=== PATIENT | female | born 1970 | race Caucasian/White ===

== ENCOUNTER → 2020-01-18 11:12 | Outpatient (BNVA) | payer OTHER, SELFPAY | PROVIDERS: PCP Family Medicine; Referring Provider Family Medicine; Visit Provider Physician Assistant | DX: E66.01 Morbid (severe) obesity due to excess calories (principal); Z68.44 Body mass index [BMI] 60.0-69.9, adult | CPT/HCPCS: 99204 ==

== ENCOUNTER → 2020-02-10 10:26 | Outpatient (BNVA) | payer OTHER, SELFPAY | PROVIDERS: PCP Family Medicine; Visit Provider Physician Assistant | DX: E66.01 Morbid (severe) obesity due to excess calories (principal); Z68.44 Body mass index [BMI] 60.0-69.9, adult | CPT/HCPCS: 99212 ==

== ENCOUNTER → 2020-03-08 08:14 | Outpatient (BNVA) | payer OTHER, SELFPAY | PROVIDERS: PCP Family Medicine; Visit Provider Physician Assistant | DX: Z76.89 Persons encountering health services in other specified circumstances (principal) ==

== ENCOUNTER → 2020-04-11 08:15 | Outpatient (BNVA) | payer OTHER, SELFPAY | PROVIDERS: PCP Family Medicine; Referring Provider Family Medicine; Visit Provider Dietitian, Registered | DX: Z76.89 Persons encountering health services in other specified circumstances (principal) ==

== ENCOUNTER → 2020-05-17 08:12 | Outpatient (BNVA) | payer OTHER, SELFPAY | PROVIDERS: PCP Family Medicine; Visit Provider Physician Assistant ==

== ENCOUNTER → 2020-06-14 08:10 | Outpatient (BNVA) | payer OTHER, SELFPAY | PROVIDERS: PCP Family Medicine; Visit Provider Dietitian, Registered ==

== ENCOUNTER → 2020-07-15 08:13 | Outpatient (BNVA) | payer OTHER, SELFPAY | PROVIDERS: PCP Family Medicine; Visit Provider Physician Assistant ==

== ENCOUNTER → 2020-07-26 14:31 | Outpatient (BNVA) | payer OTHER, SELFPAY | PROVIDERS: PCP Family Medicine; Visit Provider Dietitian, Registered | DX: E66.01 Morbid (severe) obesity due to excess calories (principal); Z68.44 Body mass index [BMI] 60.0-69.9, adult | CPT/HCPCS: 97803 ==

== ENCOUNTER → 2020-09-22 08:18 | Outpatient (BNVA) | payer OTHER, SELFPAY | PROVIDERS: PCP Family Medicine; Visit Provider Physician Assistant ==

== ENCOUNTER → 2020-10-14 10:07 | Outpatient (BNVA) | payer OTHER, SELFPAY | PROVIDERS: PCP Family Medicine; Visit Provider Physician Assistant ==

== ENCOUNTER → 2020-12-13 09:01 | Outpatient (BNVA) | payer OTHER, SELFPAY | PROVIDERS: PCP Family Medicine; Visit Provider Dietitian, Registered | DX: E66.01 Morbid (severe) obesity due to excess calories (principal); Z68.45 Body mass index [BMI] 70 or greater, adult | CPT/HCPCS: 97803 ==

== ENCOUNTER → 2021-01-13 08:46 | Outpatient (BNVA) | payer OTHER, SELFPAY | PROVIDERS: PCP Family Medicine; Visit Provider Dietitian, Registered | DX: E66.01 Morbid (severe) obesity due to excess calories (principal); Z68.44 Body mass index [BMI] 60.0-69.9, adult | CPT/HCPCS: 97803 ==

== ENCOUNTER → 2021-09-06 13:08 | Outpatient (BNVA) | payer OTHER, SELFPAY | PROVIDERS: PCP Family Medicine; Visit Provider Physician Assistant Surgical | DX: E66.01 Morbid (severe) obesity due to excess calories (principal); Z68.45 Body mass index [BMI] 70 or greater, adult | CPT/HCPCS: 99212 ==

== ENCOUNTER → 2021-09-20 13:34 | Outpatient (BNVA) | payer OTHER, SELFPAY | PROVIDERS: Referring Provider Physician Assistant Surgical; Visit Provider Dietitian, Registered | DX: E66.01 Morbid (severe) obesity due to excess calories (principal) | CPT/HCPCS: 97803 ==

== ENCOUNTER 2022-12-17 13:03 | Outpatient (RCR) | payer OTHER, SELFPAY | END 2023-02-06 15:00 | disposition home or self-care (01) | LOC: HO.WCC 13:03 | PROVIDERS: PCP Internal Medicine; Visit Provider Physician Assistant | DX: E11.622 Type 2 diabetes mellitus with other skin ulcer (principal); L97.222 Non-pressure chronic ulcer of left calf with fat layer exposed; E11.40 Type 2 diabetes mellitus with diabetic neuropathy, unspecified; E11.51 Type 2 diabetes mellitus with diabetic peripheral angiopathy without gangrene; I95.9 Hypotension, unspecified; I89.0 Lymphedema, not elsewhere classified; I73.00 Raynaud's syndrome without gangrene; L30.9 Dermatitis, unspecified; U09.9 Post COVID-19 condition, unspecified; Z92.3 Personal history of irradiation; Z92.21 Personal history of antineoplastic chemotherapy | CPT/HCPCS: 11042; 11045; 97597; 97598; 99212; 99213 ==

== ENCOUNTER 2024-03-23 16:02 | Outpatient (AMB) | payer OTHER, SELFPAY ==
--- NOTE | 2024-03-23 16:27 | MHC.PC.OV ---
Intake Visit Reasons: Video call face to face Allergies tirzepatide [From Mounjaro] Allergy (Severe, Verified 08/20/23 15:51) Unknown soy Allergy (Mild, Verified 09/06/21 13:21) hives amoxicillin Allergy (Unknown, Verified 09/06/21 13:21) anaphylaxis azithromycin [Zithromax Z-Chris] Allergy (Unknown, Verified 09/06/21 13:21) anaphylaxis Darvocet A500 Allergy (Unknown, Verified 09/06/21 13:21) hives penicillin V Allergy (Unknown, Verified 09/06/21 13:21) anaphylaxis Erythromycin Allergy (Unknown, Uncoded 01/18/20 16:16) anaphylaxis Rabbits Allergy (Unknown, Uncoded 01/18/20 16:16) anaphylaxis Bangladeshi cheese Allergy (Unknown, Uncoded 01/18/20 16:16) anaphylaxis Tobacco use date assessed: 09/06/23 HPI HPI Comments History of Present Illness Details This is a 53 y/o female with a past medical history of type 2 DM, thyroid cancer, hypothyroid, OA, obesity, lymphedema, recurrent LE cellulitis, depression, anxiety presenting to [facility] (video telehealth) Patient continues to suffer from complex and chronic health conditions. Lower extremity shallow wound on left lower posterior leg shallow 8-9cm widest, b/l LE cellulitis R>L. Patient currently without home care is home bound. Insurance doesn't cover [facility]. 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 She has limited mobility due to pain, lymphedema. She needs a wheelchair ramp to reenter her house due to considerable pain and immobility Diabetes is well controlled on current medication. She has a history of thyroid cancer. Previously followed in [place]. Says she has fixed large painful lumps on the neck more prominent now with weight loss. Has had x years but endorses growth ROS see HPI PHYSICAL EXAM: GENERAL: Alert and oriented x 3. NAD EYES: EOMI. Anicteric. SKIN: b/l lymphedema with erythema LE, posterior LLE with dressing NEUROLOGIC: No focal neurological deficits. PSYCHIATRIC: Cooperative. Appropriate mood and affect [facility] Medical History CVA (cerebral vascular accident) Myocardial ischemia CHARITO on CPAP Thyroid cancer BMI 60.0-69.9, adult Berrios's palsy GERD (gastroesophageal reflux disease) delivery delivered Right knee meniscal tear Morbid obesity POTS (postural orthostatic tachycardia syndrome) Surgical History S/P cholecystectomy H/O total thyroidectomy S/P right knee arthroscopy Family History Father No problems noted. Mother Heart disease History of hypothyroidism Sister No problems noted. Brother No problems noted. Son No problems noted. Son No problems noted. Son No problems noted. Social History Alcohol intake: never Patient Tobacco Use Status: Former Tobacco user Substance Use Type: Marijuana Physical exam (Primary Care) Tobacco/Smoking Status: Tobacco use Status Tobacco use date assessed 09/06/23 03/23/24 16:28 Patient Tobacco Use Status Former Tobacco user 03/23/24 16:28 Telehealth Telehealth Telehealth Platform: [employer] Location of provider rendering services: practice address Location of patient: address on file Patient Identification confirmed using: Name, : Yes Telehealth method: video Patient verbally consented to treatment: Yes Patient verbally consented to billing insurance company: Yes Patient informed of any privacy concerns related to visit: Yes Minutes spent on Phone/Video with Pt.: 45 Coding Level of Care Code Tele Est Pt Level 5 (51341) Diagnoses Lymphedema I89.0 Type 2 diabetes mellitus with other specified complication, unspecified whether terminal system operator insulin use E11.69 Diabetes mellitus terminal system operator insulin use: unspecified fpc insulin use status Diabetes mellitus complication status: with other specified complication History of thyroid cancer Z85.850 Assessment & Plan Assessment & Plan (1) Lymphedema: Code(s): I89.0 - Lymphedema, not elsewhere classified Category: Medical Plan: Referral to home care, wound care. Levaquin x 10 days for cellulitis Needs DME supplies (2) Type 2 diabetes mellitus: Code(s): E11.9 - Type 2 diabetes mellitus without complications Category: Medical Qualifiers: Diabetes mellitus fpc insulin use: unspecified terminal system operator insulin use status Diabetes mellitus complication status: with other specified complication Qualified Code(s): E11.69 - Type 2 diabetes mellitus with other specified complication Plan: well controlled. Labs ordered (3) History of thyroid cancer: Code(s): Z85.850 - Personal history of malignant neoplasm of thyroid Category: Medical Plan: Monitor labs Needs endocrine consult but currently homebound Orders: Orders Complete Blood Count Auto Diff Today Z13.0 - Encounter for screening for diseases of the blood and blood-forming organs and certain disorders involving the immune mechanism [facility]errals [facility] Referral I89.0 - Lymphedema, not elsewhere classified, R29.898 - Other symptoms and signs involving the musculoskeletal system, S81.132E - Unspecified open wound, unspecified lower leg, initial encounter Medications: New levofloxacin 750 mg PO DAILY 10 tabs 0RF
== END 2024-03-23 17:05 | disposition home or self-care (01) ==
LOC: HO.HMCFM 16:02
PROVIDERS: PCP Internal Medicine; Visit Provider Internal Medicine
DX: I89.0 Lymphedema, not elsewhere classified (principal); E11.69 Type 2 diabetes mellitus with other specified complication; Z85.850 Personal history of malignant neoplasm of thyroid

== ENCOUNTER 2024-04-25 14:41 | Outpatient (REF) | payer OTHER, SELFPAY ==
[2024-04-25 14:44] LABS: MANUAL DIFF FLAG NO
[2024-04-25 14:46] LABS: Basophils Percent Auto 0.5 % (0-2); Eosinophils Absolute Auto 0.4 X10*3/uL (0.0-0.4); Eosinophils Percent Auto 5.6 % (0-4); Hematocrit 34.3 % (37.0-47.0); Hemoglobin 10.6 g/dl (12.0-16.0); Imm Gran Abs Auto 0.03 X10*3/uL (0.00-0.03); Imm Gran Pct Auto 0.4 % (0.0-0.4); Lymphocytes Absolute Auto 1.7 X10*3/uL (1.2-4.9); Lymphocytes Percent Auto 22.7 % (20-40); Mean Corpuscular HGB Conc 30.9 g/dl (31.0-35.0); Mean Corpuscular Hemoglobin 29.1 pg (27.0-33.0); Mean Corpuscular Volume 94.2 fL (80.0-98.0); Mean Platelet Volume 8.8 fL (9.4-12.3); Monocytes Absolute Auto 0.5 X10*3/uL (0.1-1.2); Monocytes Percent Auto 6.6 % (2-11); Neutrophils Absolute Auto 4.9 x10*3/uL (2.0-8.3); Neutrophils Percent Auto 64.2 % (45-73); Platelet Count 312 X10*3/uL (160-400); Red Blood Count 3.64 X10*6/uL (4.20-5.50); Red Cell Distribution Width 14.8 % (11.0-16.0); White Blood Count 7.6 X10*3/uL (4.8-10.8)
== END 2024-04-25 14:42 | disposition home or self-care (01) ==
LOC: HO.HVNA 14:41
PROVIDERS: Visit Provider Internal Medicine
DX: Z13.89 Encounter for screening for other disorder (principal)
CPT/HCPCS: 36415; 85025

== ENCOUNTER → 2024-04-27 16:40 | Outpatient (BNVA) | payer OTHER, SELFPAY | PROVIDERS: PCP Internal Medicine; Visit Provider Internal Medicine | DX: S81.809A Unspecified open wound, unspecified lower leg, initial encounter (principal) ==

== ENCOUNTER 2024-05-01 15:44 | Outpatient (AMB) | payer OTHER, SELFPAY ==
--- NOTE | 2024-05-01 15:45 | A.OFFPC_ITS ---
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 Allergies tirzepatide [From Mounjaro] Allergy (Severe, Verified 05/01/24 15:46) Unknown soy Allergy (Mild, Verified 05/01/24 15:46) hives amoxicillin Allergy (Unknown, Verified 05/01/24 15:46) anaphylaxis azithromycin [Zithromax Z-Chris] Allergy (Unknown, Verified 05/01/24 15:46) anaphylaxis Darvocet A500 Allergy (Unknown, Verified 05/01/24 15:46) hives penicillin V Allergy (Unknown, Verified 05/01/24 15:46) anaphylaxis Erythromycin Allergy (Unknown, Uncoded 05/01/24 15:46) anaphylaxis Rabbits Allergy (Unknown, Uncoded 05/01/24 15:46) anaphylaxis Malaysian cheese Allergy (Unknown, Uncoded 05/01/24 15:46) anaphylaxis Tobacco use date assessed: 09/06/23 HPI HPI Comments History of Present Illness Details This is a 54 y/o female with a past medical history of type 2 DM, thyroid cancer, hypothyroid, OA, obesity, hypoxic respiratory failure on chronic 02, lymphedema, recurrent LE cellulitis, depression, anxiety presenting for follow up (video telehealth) Patient continues to suffer from complex and chronic health conditions. Lower extremity wounds on left lower posterior leg shallow 8-9cm widest, b/l LE cellulitis. Finally has [facility]NA in the home. Labs were sent. Only CBC was drawn. There is mild anemia. Currently has a left unna boot. [facility] 3x/wk nursing 2x/wk for physical therapy She has limited mobility due to pain, lymphedema. She needs a wheelchair ramp to reenter her house due to considerable pain and immobility Diabetes is well controlled on current medication. She has a history of thyroid cancer. Previously followed in [place]. She requires chronic 02. Needs concentrator script 4-7L depending on activity. Has prn albutrol Says she has fixed large painful lumps on the neck more prominent now with weight loss. Has had x years but endorses growth. ROS see HPI PHYSICAL EXAM: GENERAL: Alert and oriented x 3. NAD EYES: EOMI. Anicteric. SKIN: b/l lymphedema with erythema LE, posterior LLE unna boot NEUROLOGIC: No focal neurological deficits. PSYCHIATRIC: Cooperative. Appropriate mood and affect [facility] Medical History CVA (cerebral vascular accident) Myocardial ischemia CHARITO on CPAP Thyroid cancer BMI 60.0-69.9, adult Berrios's palsy GERD (gastroesophageal reflux disease) delivery delivered Right knee meniscal tear Morbid obesity POTS (postural orthostatic tachycardia syndrome) Surgical History S/P cholecystectomy H/O total thyroidectomy S/P right knee arthroscopy Family History Father No problems noted. Mother Heart disease History of hypothyroidism Sister No problems noted. Brother No problems noted. Son No problems noted. Son No problems noted. Son No problems noted. Social History Alcohol intake: never Patient Tobacco Use Status: Former Tobacco user Substance Use Type: Marijuana Physical exam (Primary Care) Tobacco/Smoking Status: Tobacco use Status Tobacco use date assessed 09/06/23 05/01/24 15:48 Patient Tobacco Use Status Former Tobacco user 05/01/24 15:48 Telehealth Telehealth Telehealth Platform: [facility] Location of provider rendering services: practice address Location of patient: address on file Patient Identification confirmed using: Name, : Yes Telehealth method: video Patient verbally consented to treatment: Yes Patient verbally consented to billing insurance company: Yes Patient informed of any privacy concerns related to visit: Yes Minutes spent on Phone/Video with Pt.: 43 Coding Level of Care Code Tele Est Pt Level 5 (16013) Diagnoses Chronic hypoxic respiratory failure J96.11 Type 2 diabetes mellitus with other specified complication, unspecified whether senior care insulin use E11.69 Diabetes mellitus complication status: with other specified complication Diabetes mellitus senior care insulin use: unspecified senior care insulin use status Depressive disorder due to separate medical condition F06.30 Assessment & Plan Assessment & Plan (1) Chronic hypoxic respiratory failure: Code(s): J96.11 - Chronic respiratory failure with hypoxia Category: Medical Plan: Oxygen supplies needed. 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 insulin use status Qualified Code(s): E11.69 - Type 2 diabetes mellitus with other specified complication Plan: Labs need to be resent (3) Depressive disorder due to separate medical condition: Code(s): F06.30 - Mood disorder due to known physiological condition, unspecified Category: Medical Plan: Can be overwhelmed by medical conditions, homebound status Orders: Orders Vitamin B12 and Folate 05/01/24 D64.9 - Anemia, unspecified IRON PROFILE 05/01/24 D64.9 - Anemia, unspecified Medications: New Oxygen Home Use Oxygen concentrator 6L standing 4L sitting 1 ea 0RF J96.11 - Chronic respiratory failure with hypoxia
--- OUTSIDE RECORDS SUMMARY | 2024-05-01 15:46 | XMS_ITS | Data Portability ---
Author Organization [place] - [facility] Address [address] [place] [id number] Care Team Providers Care Silk Examiner Name Role Phone RUIZ PENNINGTON Primary Care Provider [phone] Assessment Encounter Date Assessment Date Assessment LastModified by Organization Details LastModified Time 08/20/2021 08/20/2021 51 YO female patient who complains of left calf wound which is painful to touch and pus exudate. She took a shower 2 days ago and noticed pus was coming from her calf region. She does recall while in bed something cutting her. States site is warm to touch. She has pictures of wound 2 days ago. Exam: Vitals: VSS with HR at baseline, hx of POTS. MO, well developed, pleasant in euthymic mood. NAD sitting comfortably in chair. Normacepalic, atraumatic, EOMI. Able to move all exxtremities. BLE with non pitting edema, skin with dry and dusky appearance to toes/feet, which is her baseline. Left lower calf erythematous, warm to touch, with visible superficial wound opening. See picture for detail. Test: None ordered DDx: Cellulitis, atopic dermatitis, tinea corporis Plan: Area cleansed with wound wash and Bacitracin applied to site. Picture taken of wound by picture compared with current presentation with wound actually showing some improvement. No active exudate, however area warm, erythematous, and tender with touch. Allergies were reviewed with patient which she states that she was told as a child she was allergic to PCN, however she has taken PCN as an adult with no unwanted side effect. Keflex prescribed. Recommended keeping area clean and dry and assessing site daily for progression or worsening. The patient is advised to make an appt with PCP in 3-5 days to discuss ongoing symptoms/ further management. The patient is also advised to go to the ED immediately for any worsening symptoms. The patient understood and agreed with this plan. The patient was given discharge instructions and all questions were answered prior to team departure. Time On Scene with Patient: 00:51:59 [email or web address] Not available 08/20/2021 13:44:05 08/27/2021 08/27/2021 Overview/History : 51 year old female known to but new to provider with a history of asthma/COPD, POTS, hypothyroid, thyroid cancer with thyroidectomy being seen today to check the wound on her left lower leg that she has been on Keflex from since last visit on 08/20. Called because it was still oozing yesterday for which today the oozing stopped. She was at a yesterday and had her leg in dependent position all day with aunt (retired RESEARCH AND DEVELOPMENT TECHNICIAN) stated she should have it checked. Was oozing from the wound itself. Keeping it covered seems to make it better. Tends not to elevate during the day. No fever or chills. HR today 106 for which is good acc to pt at usually is 112. Some local pain at the wound site. Today also has a sore throat. Last COVID test 4 days ago negative. Took one of her prn bumex Saturday and today to decrease the swelling Exam: Non-toxic appearing female in no acute distress; afebrile with VS WNL/HR normal per pt. Mild pharygeal erythema but difficult visualizing post pharynx; no exudate. Breathsounds bilat clear; neg abdominal exam; S1S2 regular; Left calf region: approx dime-sized superficial vascular ulcer, granular tissue, no drainage, no localized redness. Overall appearance of left leg no different than right with chronic vascular dermatitis/non-pi tting edema. Vital Signs: 110/60; 106; 18; 97.3; 96% DDx considered, but not limited to: -Vascular, non-pressure ulcer left calf: present with no signs of acute infection -Wound cellulitis: considered due to complaints of pain but no localized redness -Abscess: no fluctuance, no drainage Work up/Results: None indicated Plan/Discussion: -To continue keflex as ordered until gone (3 more days) -Apply medihoney to cleansed open area daily -Must elevate -Consider daily dosing of bumex while ulcer healing to enhance healing -Ammonium lactate ordered to intact skin as has helped in past -PCP follow up -Discussed ED precautions/infec tion Proper Personal Protective Equipment (PPE), including gloves, eye protection and masks were donned and doffed appropriately and all equipment cleaned using approved technique with germicidal disposable wipes prior to and after care of this patient according to [facility]'s infection prevention protocols. [email or web address] Not available 08/27/2021 17:51:17 05/31/2022 05/31/2022 Time On Scene with Patient: 01:51:47 Brief Overview: 52 y/o female known to DH new to provider with hx of Asthma, COPD, DM, HTN, hyperlipidemia, hypothyroidism, prior thyroid CA, POTS, lymphedema. pt reports she has had cough x 3 days now. cough is productive with yellow/ green sputum. she denies cp, sob, wheezing. states she has not needed to use her nebulizer since she has been sick. she also reports a chronic wound on her left posterior lower leg. states wound has been weeping and area is red and warm, painful. her pcp prescribed rx levaquin- 7 day course. pt also states she has appt with wound on 06/06 at their office. Vital Signs: mildly hypertensive but asymptomatic BP 142/74, initially tachycardic HR 103, repeat HR 94, RR 18, T 97.8, O2 99% on 2L via nasal canula. Exam: pleasant 52 y/o female, morbidly obese, alert, NAD sitting in her chair. eyes: no injection, icterus or discharge. nose: nares patent no discharge. mouth: moist mucous membranes no erythema, uvula is midline. no cervical lymphadenopathy. lungs: few expiratory wheezes at the bilateral bases. no rales or rhonchi. heart: RRR no murmur rubs or gallops. peripheral edema 1+ bilaterally. chronic lymphedema bilaterally in the lower extremities. left posterior distal lower leg with large superficial open wound. small amount serosanguinous drainage. localized erythema and warmth. strength is normal and equal bilaterally. DDx considered, with rationale: Pneumonia: considered but she is afebrile, denies sob, on exam has wheezes at the bases bilaterally. Necrotizing fasciitis: considered but she is afebrile, she does not have pain out of proportion. DVT: considered but no tachycardia, hypoxia, no calf tenderness. results/ work up: CXR pending. Plan: productive cough: keep hydrated. use of humidifier in her bedroom. ok to take otc tylenol as directed on the package for pain or fever. pt is currently taking Levaquin- take as directed by pcp. pt will call and schedule CXR. continue your nebulizer and inhalers as prescribed by pcp. follow up with pcp in 3-5 days or sooner prn. go to the ER with any new or worsening symptoms cp, sob, increased wheezing, fever, weakness, dizziness. open wound left leg: dressing changed today and wound cleaned with saline. non stick dressing applied. continue rx levaquin as prescribed by pcp. keep your appt with wound clinic on 06/06 as scheduled. go to the ER with worsening symptoms fever, cp, sob, dizziness, increasing edema, drainage, pain, redness. DM: controlled with current meds. follow up with pcp as scheduled. go to the ER with worsening symptoms cp, sob, dizziness, nausea, vomiting, abdominal pain, weakness. Proper Personal Protective Equipment (PPE), including gloves, eye protection and masks were donned and doffed appropriately and all equipment cleaned using approved technique with germicidal disposable wipes prior to and after care of this patient according to [facility]'s infection prevention protocols. [email or web address] Not available 05/31/2022 16:43:14 06/18/2022 06/18/2022 Overview/History : 52 YO F known to provider and known to She is being seen today in her home Wants a wound to her LLE posterior side that she has had for sometime looked at since she cannot see it where it is on her body. It drains clear liquid and she is followed by wound care for this. She keeps it covered and clean at home w/ help from family. Her only other concern today is some oral pain, feels like a canker sore to her lower lip. Wondering if she can get something for this. She has no other concerns or c/o today. No fever, chills, chest pain, SOB, urinary sxs, other wounds, redness, severe pain, exudative drainage, weakness, numbness/tingling , abd pain, NVD, difficulty swallowing, other oral pain. Exam: Vitals: VSS and afebrile Constitutional: 52 yo morbidly obese patient in no apparent distress. Upright, comfortable and not toxic appearing. Eyes: PERRL at 4mm, EOM's intact, No swelling, no discharge, sclera / conjunctiva clear ENT: no head/neck lymphadenopathy, no nasal discharge, no erythema/ exudate noted in oropharynx, uvula and trachea midline, moist mucous membranes CV: RRR, no rubs/ murmurs/ gallops heard, 2+ radial pulses bilaterally, BL baseline edema, and no calf tenderness BL, no redness neg mono's sign, 2+ DP/ PT pulses bilaterally Pulm: breath sounds clear and equal bilaterally, no wheeze/ rhonchi or rales on auscultation. Speaks in full sentences, no increased work of breathing. On baseline o2 via NC. GI: Soft, non-tender to palpation. No masses, normal bowel sounds. No guarding and no distension. : No CVA tenderness bilaterally. No suprapubic tenderness. MS: Self ambulatory patient, get up and go, moves all limbs without deficit, no evidence of trauma Neuro: No focal deficits, A&O x4, gait is not ataxic Skin: Superficial healing posterior leg wound to LLE, no redness, no warmth, no exudative drainage, no crepitus, otherwise No rash, no cyanosis/pallor, + cap refill, visible skin appears cdi. Psych: Calm, cooperative, non-manic. Pleasant. DDx considered, but not limited to: Wound - present, draining clear, healing, followed by wound care, no s/s infx Cellulitis - no s/s of infx at this time Necrotizing Fascitis - no crepitus, no warmth, no fever Canker Sore - present to lip Oral Infx - no erythema, edema, throat clear, poor dentition but no swollen nodes and no other evidence of infx at this time needing abx, educated to f/u closely w/ dentist Work up/Results: N/a Plan/Discussion: Canker Sore: -Present to lower lip -Pt states it is bothering her -Requesting something josafat to magic mouthwash -Sent script for viscous lidocaine for her to try for this until it heals -KEEP AWAY FRON CHILDREN she has children in the home -Do not swallow -No other evidence of oral infx at this time -F/u closely w/ dentist -F/u for any changes or worsening in sxs _ED precautions for diff swallowing, loose teeth, airway narrowing, lip/tongue/throat edema (which there is none of now), severe pain LLE open Wound: -She has had this for quite soem time, just wants it looked at to make sure it is not infected -She cannot see it herself as it is on back side of her LLE -It has NO evidence of infection at this time -Wound care is following and she is dressing it at home w/ help -Keep area david and dry -Educated on s/s of infx to look out for -Offered to dress wound but pt will do this later -F/u closely w/ wound care _ED precautions for severe pain, spreading redness, change in color to feet/toes, loss of sensation, fever Pt is on agreement and verbalizes understanding with the above plans at this time. Pt has no other questions or concerns at this time. All questiosn are answered to the best of my ability. Pt thanks us for our visit today. [email or web address] Not available 06/19/2022 11:09:51 06/22/2022 06/22/2022 Time On Scene with Patient: 00:42:14 - Urgent 911 transport: Patient is not in critical condition but required prompt evaluation to prevent clinical deterioration Brief Overview: 52 y/o female known to DH and provider with hx of Asthma/ COPD, DM, HTN, hyperlipidemia, hypothyroidism, thyroid CA in remission, lymphedema, POTS. pt reports she has been dealing with edema in her legs and wound on left lower leg x months now. she reports the past 3 days wound has worsened. she has increased pain, yesterday wound had purulent drainage, today drainage is clear. she reports increased edema in her left leg. pt reports yesterday she had a fever of 101. she has been taking tylenol, last dose was at 1pm this afternoon. she denies cp, sob. states her breathing is at baseline. she has not been able to wrap her leg/ wound due to pain. she reports she did vomit yesterday. pt denies recently applying ice or cold compress to the leg. Vital Signs: BP 118/76, HR 90, RR 20, T 98.1, O2 98% on 3L Exam: 52 y/o female chronically ill appearing, morbidly obese, alert NAD sitting in her chair. eyes: no injection, icterus or discharge. nose: nares patent no discharge. mouth: moist mucous membranes no erythema, uvula is midline. no cervical lymphadenopathy. lungs: CTAB no wheezes rales or rhonchi, pt on 3L. heart: RRR no murmur rubs or gallops. 1+ peripheral edema bilaterally. chronic lymphedema. left posterior lower leg with large chronic wound. serosanguinous drainage noted today. skin appears discolored, white and purplish. pt has severe pain with light palpation over wound. skin is cold to the touch. pt denies application of ice or cold compress. ROM limited due to pain, increased difficulty when attempting to stand/ ambulate. DDx considered, with rationale: DVT: considered due to edema and calf tenderness, no tachycardia. Necrotizing fasciitis: considered due to extreme pain with light palpation, reported fever of 101 yesterday. she is afebrile today but has taken tylenol. Compartment syndrome: considered due to severe pain with palpation, but no numbness or weakness, no reported injury or trauma. Osteomyelitis: considered due to chronic wound with new onset fever and increased pain, pt is diabetic. Results/ work up: N/A Plan: Due to symptoms and chronic worsening wound with new onset fever I advise urgent evaluation in the ER for further work up and treatment. pt agrees with plan. EMS was called to transport pt to the ER. Expect called to [place] [facility]. Proper Personal Protective Equipment (PPE), including gloves, eye protection and masks were donned and doffed appropriately and all equipment cleaned using approved technique with germicidal disposable wipes prior to and after care of this patient according to [facility]'s infection prevention protocols. [email or web address] Not available 06/22/2022 18:01:54 Plan of Treatment Reminders Order Date Submit Date Provider Last Modified By Organization Details Last Modified Time Details Appointments None recorded. Lab None recorded. Referral None recorded. Procedures None recorded. Surgeries None recorded. Imaging XR, chest, 2 view - productive cough, copd 2022 023 [email or web address] 9 [facility] ([employer]), [address], [place], [address], 3 14:56:13 Medication Orders cephalexin 500 mg capsule 2021 022 [email or web address] 5 [facility] #[id number], [address] [place], [address], 3 12:36:56 ammonium lactate 12 % topical cream 2021 022 [facility]acy #1234, [address] [place], [address], 2 17:30:23 MediHoney (honey) 80 % topical gel 2021 022 [facility] [address] [place], [address], 2 03:38:10 Lidocaine Viscous 2 % mucosal solution 2022 023 [email or web address] [facility] #1234, [address] [place], [address], 3 11:04:51 Patient TargetsNo targets recorded. Patient Instructions Encounter Date Encounter Id Patient Instructions Last Modified By Organization Details Last Modified Time 08/20/2021 [id number] Thank you for yo ur visit with [facility] today. You were seen today for treatment of a wound. Please seek immediate medical attention if you develop increased pain, redness, or swelling of your wound. Also, you should be evaluated if the wound becomes warm to the touch, or if there is a cloudy, yellow-brown discharge from the wound. There is always the possibility of a hidden tendon injury or foreign object in the wound. If you have problems moving your arm or leg, or if you see red streaks up the arm or leg, seek immediate medical attention. If you develop any new or worsening symptoms and need after hours care, please go to nearest ER and/or call 911. If you have additional concerns or develop a change in your condition between 8am-10pm, please call [facility] at [phone] to help navigate your care. [email or web address] Not available 08/20/2021 12:28:50 08/27/2021 [id number] -You were seen today for healing vascular wound on your left calf -It is showing signs of healing with no acute infection as it was most likely worse the other day due to prolonged placement in dependent position -Finish all antibiotics -Clean at least once daily, dry and apply medihoney and dressing -Apply ammonium lactate cream to all intact skin on lower legs -Must elevate when sitting -Follow up with your PCP but seek medical attention for any fever, increased redness, pain, drainage [email or web address] Not available 08/27/2021 17:54:35 Reason for Referral None Reported. Results Created Date Observation Date Name Description Value Unit Range Abnormal Flag Note LastModifiedBy Organization Detail LastModifiedTime 08/09/19 22 08/09/2021 COVID -19 (NOVE L CORON AVIRU S) PCR covid-19 PCR result (neg) NEGAT KARI 2018- novel Coron aviru s (2018nCoV ) not detec tommie by real- time RT-PC R. Note: If clini itzel suspi cion for COVID -19 is high, av nue to maint ain preca ution s and consi valerio repea t testi ng. Resul t repor tommie to the [facility]. To preve nt error s in diagn osis, test resul ts shoul d be inter prete d in the yao xt of clini itzel findi ngs and other labor atory data. Rare polym orphi sms exist that could lead to false -nega tive or false -posi tive resul ts. If resul ts obtai rajani do not match the clini itzel findi ngs, addit ional testi ng shoul d be consi dered . This test has been autho rized by the FDA under an Emerg ency Use Autho rizat ion (EUA) for use by autho rized labor atori es. Testi ng perfo rmed by real time PCR utili [facility] [employer] SARS- CoV-2 test. Not Available [facility] [address], [place], [address], 08/09/2021 12:39:07 08/09/19 22 08/09/2021 COVID -19 (NOVE L CORON AVIRU S) PCR covid-19 PCR specimen source NASAL Not Available [facility] [address], [place], [address], 08/09/2021 12:39:07 08/09/19 22 08/08/2021 rapid flu (A+B) Flu A (ref: neg) negati ve Not Available [facility] - Home [address] [facility], [place], [address], 08/08/2021 18:33:51 08/09/19 22 08/08/2021 rapid flu (A+B) Flu B (ref: neg) negati ve Not Available [facility] - Home [address] [facility] [facility], [place], [address], 08/08/2021 18:33:51 08/09/19 22 08/08/2021 rapid flu (A+B) Control Visual ized/V alid Not Available [facility] - Home [address] [facility], [place], [address], 08/08/2021 18:33:51 08/09/19 22 08/08/2021 rapid flu (A+B) Location [facility], [facility], [address] [facility], [place] [address], [id number] Not Available [facility] - Home [address] [place], [address], 08/08/2021 18:33:51 08/10/19 22 08/09/2021 XR, chest , 2 view XRAY CHEST 2 VIEW FINDIN GS: Lungs: No focal consol idatio n. Pulmon buck vascul ature is within normal limits . Promin ent lung markin gs. Pleura : No pneumo thorax . No pleura l effusi on. Heart and Medias tinum: The cardio medias tinal silhou ette is enlarg ed in size and contou r. Osseou s struct ures: Visual ized osseou s struct ures are stable . No radiop aque foreig n body. CONCLU JAVAD: No acute cardio pulmon buck proces s. ELECTR ONICAL LY SIGNED BY LU DUKES M.D. 10:54: 44 AM EDT. XRAY CHEST 2 VIEW Result s: Lungs: No focal consol idatio n. Pulmon buck vascul ature is within normal limits . Promin ent lung markin gs. Pleura : No pneumo thorax . No pleura l effusi on. Heart and Medias tinum: The cardio medias tinal silhou ette is enlarg ed in size and contou r. Osseou s struct ures: Visual ized osseou s struct ures are stable . No radiop aque foreig n body. Conclu javad: No acute cardio pulmon buck proces s. Electr onical ly signed by LU DUKES M.D. 10:54: 44 AM EDT. [email or web address] [employer] [address], [address], 08/13/2021 11:04:49 06/02/19 23 06/01/2022 XR, chest , 1 view XRAY CHEST 1 VIEW FINDIN GS: The heart shows no abnorm ality, the size is normal . There is minima l plate like atelec tasis at the left base with no focal mass, consol idatio n or effusi on.The osseou s struct ures are normal . CONCLU JAVAD: Minima l atelec tasis at left base new since ELECTR ONICAL LY SIGNED BY RODNEY GARDINER M.D. 06/02/19 11:45: 53 AM EST. XRAY CHEST 1 VIEW Result s: The heart shows no abnorm ality, the size is normal . There is minima l plate like atelec tasis at the left base with no focal mass, consol idatio n or effusi on.The osseou s struct ures are normal . Conclu javad: Minima l atelec tasis at left base new since Electr onical ly signed by RODNEY GARDINER M.D. 06/02/19 11:45: 53 AM EST. [email or web address] [employer] [address] [address], [place], [address], 06/01/2022 16:39:15 Result Notes None recorded. Procedures Surgical History Date Name Laterality Status Provider Name and Address Organization Details Recorded Time 023 Medication Review completed RACHEAL Chandler [address], [place], [address], [place] [facility] 06/18/2022 14:15:47 022 Nebulizer treatment - DH completed RACHEAL Chandler [address], [place], [address], [place] [facility] 07/15/2021 15:10:51 Removal of thyroid completed Venice García NP [address], [place], [address], [place] [facility] 07/05/2021 15:59:02 Cholecystectomy completed September CHEN García [address], [place], [address], [place] [facility] 07/05/2021 15:59:16 Knee arthroscopy/surger y completed September CHEN García [address], [place], [address], [place] [facility] 07/05/2021 15:59:28 delivery completed Venice CHEN García [address], [place], [address], [place] [facility] 07/05/2021 16:00:01 Imaging Results Imaging Date Name Status LastModified by Organiz ation Details LastModified Time 08/09/2021 XR, chest, 2 view completed [email or web address] [employer] [facility] [address], [address], 08/13/2021 11:04:49 06/01/2022 XR, chest, 1 view completed [email or web address] [employer] [facility] [address] [facility] [address], [address], 06/01/2022 16:39:15 Procedure Notes None recorded. Medical Equipment None Reported. Allergies Allergen ID Allergen Name Allergen Category Reaction Reaction Severity Criticality Documentation Date Start Date Code Code System Note Provider Name and Address Organization Details Recorded Time [id number] erythromy hermes medicatio n Not available Not available Not available 07/05/2021 4053 RxNorm Venice Ricky , RESEARCH AND DEVELOPMENT TECHNICIAN [address], [place], [address], [place] [facility] 2 15:52:01 [id number] amoxicill in medicatio n Not available Not available Not available 07/05/2021 723 RxNorm Venice Ricky , CHEN [address], [place], [address], [place] [facility] 2 15:52:48 233400 Product containin g penicilli n and antibioti c (product) medicatio n Not available Not available Not available 07/05/2021 35336 05 SNOMED Venice Ricky , CHEN [address], [place], [address], [place] [facility] 2 15:52:40 [id number] azithromy hermes medicatio n Not available Not available Not available 06/18/2022 15759 RxNorm RACHEAL Mena [address], [place], [address], [place] [facility] 3 12:14:38 Medications Name Sig Start Date Stop Date Status Note LastModified by Organization Details LastModified Time freestyle lite test strips strp active Not Available Not Available Not Available cyclobenzap rine 10 mg tablet TAKE 1 TABLET BY MOUTH THREE TIMES A DAY NEEDED FOR MUSCLE SPASMS active Not Available Not Available No t Available metformin 500 mg tablet TAKE 1 TABLET BY MOUTH EVERYDAY AT BEDTIME 05/31 completed Not Available Not Available Not Available prednisone 10 mg tablet Taper course, oral prednison ePlease take 4 pills on day 1 and day 2Then take 3 pills on day 3 and 4Then take 2 pills on 5 and day 6Then finish by taking 1 pill on day 7 and day 8 08/08 completed Not Available Not Available Not Available albuterol sulfate 2.5 mg/3 mL (0.083 %) solution for nebulizatio n TAKE 1 VIAL BY NEBULIZAT ION EVERY 4 HOURS NEEDED FOR WHEEZING FOR UP TO 30 DAYS. active Not Available Not Available No t Available trazodone 50 mg tablet TAKE 4 TABLETS BY MOUTH AT BEDTIME active Not Available Not Available No t Available cetirizine 10 mg tablet TAKE 1 TABLET BY MOUTH EVERY DAY active Not Available Not Available No t Available azithromyci n 250 mg tablet TAKE 2 TABLETS BY MOUTH TODAY, THEN TAKE 1 TABLET DAILY FOR 4 DAYS 07/05 completed Not Available Not Available Not Available Lidocaine Viscous 2 % mucosal solution Take 15 mL every 3 hours by oral route as needed for 3 days. 2022 active Not Available Not Available Not Avai lable fluconazole 150 mg tablet TAKE 1 TABLET BY MOUTH EVERY DAY ONE DOSE 07/05 completed Not Available Not Available Not Available benzonatate 200 mg capsule TAKE 1 CAPSULE BY MOUTH 3 TIMES DAILY NEEDED FOR COUGH FOR UP TO 7 DAYS. 06/18 completed Not Available Not Available Not Available ketotifen 0.025 % (0.035 %) eye drops INSTILL 1 DROP INTO AFFECTED EYE TWICE A DAY active Not Available Not Available No t Available FreeStyle Lancets 28 gauge USE DIRECTED 3 TIMES A DAY FOR TYPE 2 DIABETES MELLITUS 06/18 completed Not Available Not Available Not Available ondansetron HCl 4 mg tablet TAKE 1 TABLET BY MOUTH EVERY 8 HOURS NEEDED FOR NAUSEA active Not Available Not Available No t Available prednisone 20 mg tablet TAKE 1 TABLET BY MOUTH DAILY FOR 7 DAYS. 05/31 completed Not Available Not Available Not Available Advair Diskus 100 mcg-50 mcg/dose powder for inhalation INHALE 1 PUFF TWICE A DAY BY INHALATIO N ROUTE DIRECTED FOR 30 DAYS. 05/31 completed Not Available Not Available Not Available sulfamethox azole 800 mg-trimetho prim 160 mg tablet 05/31 completed Not Available Not Available Not Available doxycycline monohydrate 100 mg tablet TAKE 1 TABLET BY MOUTH TWICE A DAY FOR 7 DAYS 05/31 completed Not Available Not Available Not Available levothyroxi ne 100 mcg tablet TAKE 1 TABLET BY MOUTH EVERY DAY 08/27 completed Not Available Not Available Not Available benzonatate 100 mg capsule TAKE 1 CAPSULE BY MOUTH EVERY 12 HOURS,X10 DAYS active Not Available Not Available No t Available glipizide ER 2.5 mg tablet, extended release 24 hr TAKE 1 TABLET BY MOUTH EVERY DAY active Not Available Not Available No t Available cephalexin 500 mg capsule TAKE 1 CAPSULE BY MOUTH 4 TIMES A DAY FOR 7 DAYS active Not Available Not Available No t Available cyanocobala min (vit B-12) 1,000 mcg/mL injection solution INJECT 1 ML INTO THE MUSCLE EVERY 30 DAYS. active Not Available Not Available No t Available levothyroxi ne 125 mcg tablet TAKE 2 TABLETS BY MOUTH IN THE MORNING BEFORE BREAKFAST 05/31 completed Not Available Not Available Not Available bumetanide 0.5 mg tablet TAKE 2 TABLETS BY MOUTH DAILY NEEDED FOR LEG SWELLING active Not Available Not Available No t Available Advair Diskus 250 mcg-50 mcg/dose powder for inhalation INHALE 1 PUFF INTO THE LUNGS TWICE A DAY FOR 30 DAYS active Not Available Not Available No t Available Ear Drops (carbamide peroxide) 6.5 % INSTILL 5 DROPS INTO AFFECTED EAR TWICE A DAY 08/08 completed Not Available Not Available Not Available bumetanide 1 mg tablet TAKE 1 TABLET BY MOUTH TWICE A DAY active Not Available Not Available No t Available montelukast 10 mg tablet TAKE 1 TABLET BY MOUTH AT BEDTIME active Not Available Not Available No t Available ammonium lactate 12 % topical cream APPLY 1 APPLICATI ON TOPICALLY TWICE A DAY active Not Available Not Available No t Available levothyroxi ne 200 mcg tablet TAKE 1 TABLET BY MOUTH EVERY DAY active Not Available Not Available No t Available nystatin 100,000 unit/gram topical powder APPLY TO AFFECTED AREA 3 TIMES A DAY active Not Available Not Available No t Available lorazepam 1 mg tablet TAKE 1 TABLET BY MOUTH TWICE A DAY FOR 28 DAYS 06/18 completed Not Available Not Available Not Available levofloxaci n 750 mg tablet TAKE 1 TABLET BY MOUTH EVERY 24 HOURS FOR 7 DAYS 06/18 completed Not Available Not Available Not Available ketoconazol e 2 % topical cream APPLY TO AFFECTED AREAS TWICE DAILY FOR 2 WEEKS 08/27 completed Not Available Not Available Not Available metformin ER 500 mg tablet,exte nded release 24 hr TAKE 1 TABLET BY MOUTH EVERY DAY 05/31 completed Not Available Not Available Not Available doxycycline hyclate 100 mg tablet TAKE 1 CAPSULE BY MOUTH EVERY 12 HOURS,X10 DAYS 05/31 completed Not Available Not Available Not Available BD Luer-Mary Syringe 3 mL 21 gauge x 1 USE TO INJECT VITAMIN B12 1ML EVERY 30 DAYS 05/31 completed Not Available Not Available Not Available Ventolin HFA 90 mcg/actuati on aerosol inhaler INHALE 2 PUFFS INTO LUNGS EVERY 6 HRS NEEDED FOR WHEEZING/ SHORTNESS OF BREATH FOR UP TO 30 DAYS. active Not Available Not Available No t Available Alcohol Prep Pads USE DIRECTED FOR TYPE 2 DIABETES MELLITUS 06/18 completed Not Available Not Available Not Available metoprolol tartrate 25 mg tablet TAKE 1 TABLET BY MOUTH TWICE A DAY 08/27 completed Not Available Not Available Not Available Advair HFA 115 mcg-21 mcg/actuati on aerosol inhaler INHALE 2 PUFFS INTO THE LUNGS 2 TIMES DAILY 08/08 completed Not Available Not Available Not Available FreeStyle Lite Meter kit USED TO CHECK GLUCOSE LEVELS ONCE DAILY. 06/18 completed Not Available Not Available Not Available FreeStyle Lite Strips USE DIRECTED 3 TIMES A DAY 06/18 completed Not Available Not Available Not Available MediHoney (honey) 80 % topical gel Apply 1 applicati on every day by topical route. 2021 active Not Available Not Available Not Avai lable potassium chloride ER 20 mEq tablet,exte nded release 3 TABLET BY MOUTH DAILY,X90 DAYS active Not Available Not Available No t Available Vitals Date Recorded Oxygen saturation Oxygen saturation in Arterial blood by Pulse oximetry Respiratory rate Body temperature Heart rate Systolic blood pressure Diastolic blood pressure Provider Name and Address Organization Details Last Updated DateTime 2 96 % 96 % 16 /min 97.7 [degF] 100 /min 120 mm[Hg] 70 mm[Hg] Not Available [facility] 2 12:23:17 Date Recorded Respiratory rate Oxygen saturation Oxygen saturation in Arterial blood by Pulse oximetry Heart rate Body temperature Systolic blood pressure Diastolic blood pressure Provider Name and Address Organization Details Last Updated DateTime 2 18 /min 96 % 96 % 106 /min 97.3 [degF] 110 mm[Hg] 60 mm[Hg] Not Available [facility] 2 16:48:40 Date Recorded Respiratory rate Heart rate Oxygen saturation Oxygen saturation in Arterial blood by Pulse oximetry Inhaled oxygen flow rate Body temperature Systolic blood pressure Diastolic blood pressure Provider Name and Address Organization Details Last Updated DateTime 3 18 /min 103 /min 99 % 99 % 2 L/min 97.8 [degF] 142 mm[Hg] 74 mm[Hg] Not Available [facility] 3 12:37:26 Date Recorded Body temperature Heart rate Oxygen saturation Oxygen saturation in Arterial blood by Pulse oximetry Inhaled oxygen flow rate Respiratory rate Systolic blood pressure Diastolic blood pressure Provider Name and Address Organization Details Last Updated DateTime 3 98.6 [degF] 98 /min 98 % 98 % 3 L/min 20 /min 142 mm[Hg] 72 mm[Hg] Not Available [facility] 3 13:47:27 Date Recorded Heart rate Respiratory rate Oxygen saturation Oxygen saturation in Arterial blood by Pulse oximetry Inhaled oxygen flow rate Body temperature Systolic blood pressure Diastolic blood pressure Provider Name and Address Organization Details Last Updated DateTime 3 90 /min 20 /min 98 % 98 % 3 L/min 98.1 [degF] 118 mm[Hg] 76 mm[Hg] Not Available [facility] 3 16:02:09 Social History Question Answer Notes LastModified by Organizat ion Details LastModified Time Tobacco Smoking Status Former Smoker September CHEN García [address], [place], [address], [place] [facility] 07/05/2021 15:55:57 What Is Your Level Of Alcohol Consumption? None [email or web address] Information not available 07/05/2021 What Is Your Code Status? Full Code Information not available 07/05/2021 Within The Past 12 Months, Has It Happened That The Food You Bought Just Didn't Last And You Didn't Have Money To Get More. No [email or web address] Information not available 07/05/2021 Within The Past 12 Months, Have You Worried That Your Food Would Run Out Before You Got Money To Buy More. No [email or web address] Information not available 07/05/2021 Fall Risk: Do You Feel Unsteady When Standing Or Walking? No [email or web address] Information not available 07/05/2021 We Know That How And When People Interact With Friends And Family Can Be Very Different From Person To Person. How Often Do You Have The Opportunity To See Or Talk To People That You Care About And Feel Close To? (Ex: Talking To Friends On The Phone Or Visiting Friends Or Family Or Going To Sabianist Or Club Meetings) 5 Or More Times Per Week [email or web address] Information not available 07/05/2021 Excessive Alcohol Or Drug Use No [email or web address] Information not available 07/05/2021 Does This Patient Have A PCP? Yes Information not available 07/05/2021 Has The Patient Seen Their PCP In The Past 6 Months? Yes [email or web address] Information not available 07/05/2021 We Know From Many Of Our Patients That Covering All Of Their Costs Can Be Difficult At Times. This Can Cause Stress And Impact Health. In The Past Year, Have You Been Unable To Get Any Of The Following When It Was Really Needed? No [email or web address] Information not available 07/05/2021 What Is Your Housing Situation Today? I Have Housing [email or web address] Information not available 07/05/2021 Do You Use Any Illicit Or Recreational Drugs? No Information not available 07/05/2021 How Many Years Have You Smoked Tobacco? 20 [email or web address] Information not available 07/05/2021 Do You Or Have You Ever Used Any Other Forms Of Tobacco Or Nicotine? No Information not available 07/05/2021 Sex: Unknown Functional Status None recorded. Mental Status None recorded. Family History Relationship Description Onset Age of this Age Resolved Age Notes LastModified by Organization Details LastModified Time Father Myocardial infarction [email or web address] Not available 07/15 14:19:34 Father Malignant tumor of stomach [email or web address] Not available 2021 14:21:06 Mother Myocardial infarction [email or web address] Not available 07/15 14:19:44 Medical History Condition Response Diabetes Y Coronary Artery Disease N CHF N Parkinson's Disease N Cancer Y Stroke N Dementia N Asthma Y Hypothyroidism Y Depression N COPD Y High Cholesterol Y Rheumatoid Arthritis N Pulmonary Embolism N Hypertension Y A-fib N Osteoporosis N Kidney Disease N Gynecological HistoryNo gynecological history recorded. Obstetrics History GPAL:G 0 P 0 0 0 0 Past Encounters Encounter ID Performer Location Encounter Start Date Encounter Closed Date Diagnosis/Indication Diagnosis SNOMED-CT Code Diagnosis ICD10 Code Diagnosis Note [id number] September CHEN García [facility] - HOME [address] [place] [address] 07/05/2021 15:50:54 07/06/2021 14:17:59 Acute maxillary sinusitis 05022955 J01.00 Impacted c erumen in right ear [id number] 794176 H61.21 [id number] RACHEAL [facility]ona [facility] [address] [place] [address] 07/15/2021 13:17:50 07/16/2021 22:17:17 Productive cough 90331418 R05.9 Asthma 760408555 J45.90 9 mild exacerbati on at this time Exposure t o SARS-CoV-2 391780071 Z20.822 [id number] September CHEN García [facility] [address] [place] [address] 08/08/2021 16:34:54 08/15/2021 06:51:19 Exacerbation of intermittent asthma 640242383 J45.21 Allergic conjunctivitis of bilateral eyes 3329696937 89319 H10.13 Productive cough 5469865 5 R05.9 Exposure t o communicable disease 366590488 Z20.822 [id number] September CHEN García [facility] [address] [place] [address] 08/20/2021 12:15:39 08/25/2021 10:51:54 Cellulitis of lower limb 202208613 L03.119 [id number] Marley Chau NP [facility] - [facility] [address] [place] [address] 08/27/2021 16:42:43 08/31/2021 10:11:40 Stasis dermatitis and venous ulcer of lower extremity due to chronic peripheral venous hypertension 8908997585 10288 L97.324 [id number] RACHEAL [facility] [address] [place] [address] 05/31/2022 12:28:55 05/31/2022 17:08:44 Productive cough 63860029 R05.9 Open wound of lower leg 423406797 S81.802A Type 2 bart betes mellitus 39964702 E11.9 [id number] RACHEAL [facility] [address] [place] [address] 06/18/2022 12:13:12 06/19/2022 11:28:28 Aphthous ulcer of mouth 679877105 K12.0 Open wound of lower leg 367548837 S81.802D [id number] RACHEAL [facility] [address] [place] [address] 06/22/2022 15:59:48 06/22/2022 18:26:10 Open wound of lower leg 518076507 S81.802A Type 2 bart betes mellitus 19191433 E11.9 Status of condition: {{Acute Ex acerbation /Acute on chronic Ch ronic Stab le* Worsen ing/Progre ssion Unco ntrolled C ritical: Warrants escalation to ED. Undete rmined: Unclear staging of condition. Needs further evaluation and management by PCP and/or Specialist }}. Testing/Re sults: n/a Discussion : pt reports sugars have been controlled on current medication regimen. she is asymptomat ic. Plan, Medication Management & Follow-up recommenda tions: follow up with pcp as scheduled. go to the ER with any new or worsening symptoms cp, sob, weakness, dizziness, abdominal pain. Essential hypertension 13180757 I10 Status of condition: {{Acute Ex acerbation /Acute on chronic Ch ronic Stab le* Worsen ing/Progre ssion Unco ntrolled C ritical: Warrants escalation to ED. Undete rmined: Unclear staging of condition. Needs further evaluation and management by PCP and/or Specialist }}. Testing/Re sults: BP 118/76 on scene. Discussion : BP controlled . she is asymptomat ic. Plan, Medication Management & Follow-up recommenda tions: follow up with pcp as scheduled. go to the ER with worsening symptoms cp, sob, dizziness, weakness, edema, HAs, vision changes. Health Concerns Section Related Observation LastModified by Organization Detai ls LastModified Time None Recorded Concern Status LastModified by Organization Details LastModified Time None Recorded Advance Directives Directive None Recorded Payers Encounter Date Sequence Insurance Name Policy Number Policy Walters Covered Member ID Walters Member ID Guarantor Name 08/20/2021 1 [employer] [facility] Kristen Bui [id number] Kristen Bui 08/27/2021 [address] [employer] [facility] Kristen Bui [id number] Kristen Bui 05/31/2022 1 [employer] (MEDICAID REPLACEMENT - HMO) [id number] Kristen Bui [id number] Kristen Bui 06/18/2022 1 [employer] (MEDICAID REPLACEMENT - HMO) [id number] Kristen Bui [id number] Kristen Bui 06/22/2022 1 [employer] (MEDICAID REPLACEMENT - HMO) [id number] Kristen Bui [id number] Kristen Bui Notes Date Note Type Note Provider Name and Address Organization Details Recorded Time 08/20/2021 text/html 51 YO female patient who complains of left calf wound which is painful to touch and pus exudate. She took a shower 2 days ago and noticed pus was coming from her calf region. She does recall while in bed something cutting her. States site is warm to touch. She has pictures of wound 2 days ago. Venice García NP [address], [place], [address], [place] [facility] 08/20/2021 13:47:17 08/27/2021 text/html 51 year old fema le known to but new to provider with a history of asthma/COPD, POTS, hypothyroid, thyroid cancer with thyroidectomy being seen today to check the wound on her left lower leg that she has been on Keflex from since last visit on 08/20. Called because it was still oozing yesterday for which today the oozing stopped. She was at a yesterday and had her leg in dependent position all day with aunt (retired RESEARCH AND DEVELOPMENT TECHNICIAN) stated she should have it checked. Was oozing from the wound itself. Keeping it covered seems to make it better. Tends not to elevate during the day. No fever or chills. HR today 106 for which is good acc to pt at usually is 112. Some local pain at the wound site. Today also has a sore throat. Last COVID test 4 days ago negative. Took one of her prn bumex Saturday and today to decrease the swelling Marley Chau NP [address], [place], [address], [place] [facility] 08/27/2021 17:54:44 05/31/2022 text/html 52 y/o female known to new to provider with hx of Asthma, COPD, DM, HTN, hyperlipidemia, hypothyroidism, prior thyroid CA, POTS, lymphedema. pt reports she has had cough x 3 days now. cough is productive with yellow/ green sputum. she denies cp, sob, wheezing. states she has not needed to use her nebulizer since she has been sick. she also reports a chronic wound on her left posterior lower leg. states wound has been weeping and area is red and warm, painful. her pcp prescribed rx levaquin- 7 day course. pt also states she has appt with wound clinic on 06/06 at their office. pt denies dizziness, weakness. fingerstick glucose was 128 at the visit today. she is fasting. RACHEAL Sunshine [address], [place], [address], [place] [facility] 05/31/2022 16:49:41 06/18/2022 text/html 52 YO F known to provider [facility] her homeWants a wound to her LLE posterior side that she has had for sometime looked at since she cannot see it where it is on her body. It drains clear liquid and she is followed by wound care for this. She keeps it covered and clean at home w/ help from family. Her only other concern today is some oral pain, feels like a canker sore to her lower lip. Wondering if she can get something for this. She has no other concerns or c/o today. No fever, chills, chest pain, SOB, urinary sxs, other wounds, redness, severe pain, exudative drainage, weakness, numbness/tingling, abd pain, NVD, difficulty swallowing, other oral pain. RACHEAL Chandler [address], [place], [address], [place] [facility] 06/19/2022 11:10:01 06/22/2022 text/html 52 y/o female known to and provider with hx of Asthma/ COPD, DM, HTN, hyperlipidemia, hypothyroidism, thyroid CA in remission, lymphedema, POTS. pt reports she has been dealing with edema in her legs and wound on left lower leg x months now. she reports the past 3 days wound has worsened. she has increased pain, yesterday wound had purulent drainage, today drainage is clear. she reports increased edema in her left leg. pt reports yesterday she had a fever of 101. she has been taking tylenol, last dose was at 1pm this afternoon. she denies cp, sob. states her breathing is at baseline. she has not been able to wrap her leg/ wound due to pain. she reports she did vomit yesterday. 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 RACHEAL Sunshine [address], [place], [address], [place] [facility] 06/22/2022 18:15:16 OBGyn Episode No OBEpisode recorded.
--- OUTSIDE RECORDS SUMMARY | 2024-05-01 15:46 | XMS_ITS | Clinical Summary ---
Author Organization [facility] Address [address] [place] [address] Care Team Providers Care Warehouse Specialist Name Role Phone Unavailable Primary Care Provider Unavailabl e Surgical History Surgery Date Site/Laterality Comments KNEE SURGERY 05/2003 Right PROCEDURE: HISTORICAL KNEE SURGERY THYROIDECTOMY 06/2010 PROCEDURE: HISTORICAL TOTAL THYROIDECTOMY; COMMENT: papillary cancer TUBAL LIGATION 12/2007 PROCEDURE: HISTORICAL TUBAL LIGATION; COMMENT: with c/s OTHER SURGICAL HISTORY 06/2012 PROCEDURE: [place] BX/EXC LYMPH NODE OPEN DEEP CERVICAL NODE; COMMENT: papillary carcinoma OTHER SURGICAL HISTORY 07/2010 PROCEDURE: INFUSION OF RADIOACTIVE SOLUTION; COMMENT: used to treat carcinoma SECTION 2007 PROCEDURE: HISTORICAL DELIVERY; COMMENT: x's 1 CHOLECYSTECTOMY 01/1999 PROCEDURE: HISTORICAL CHOLECYSTECTOMY Medical History Medical History Date Comments Fibromyalgia 10 years DX:Fibromyalgia POTS (postural orthostatic t achycardia syndrome) 6 yrs ago DX:POTS (postural orthostati c tachycardia syndrome); COMMENT: ativan Seizure disorder (CMS/HCC) DX:Se izure disorder (HCC) Post-traumatic stress syndrome D X:Post-traumatic stress syndrome Anxiety DX:Anxiety; COMM ENT: no meds Tobacco use disorder 05/20/2009 DX:Tobacco use disorder Hepatic steatosis DX:Hepatic terese atosis Morbid obesity with BMI of 5 0.0-59.9, adult (CMS/HCC) 04/18/2012 DX:Morbid obesity with BMI o f 50.0-59.9, adult (HCC) Asthma 07/22/2015 DX:Asthma Chronic pain of right knee 12/07/2015 DX:Ch ronic pain of right knee Endometriosis 11/08/2015 DX:Endometriosis History of thyroid cancer 06/22/2010 DX:His tory of thyroid cancer; COMMENT: S/p total thyroidectomy by Dr. Mackey on 06/30/10, followed by Dr. Escobedo (papillary) Incontinence in female 06/16/2015 DX:Incont inence in female Severe dysmenorrhea 09/15/2015 DX:Severe dy smenorrhea; COMMENT: Cyclic pre-menstrual pain, consistent with endometriosis Thyroid nodule 05/25/2010 DX:Thyroid nodul e TIA (transient ischemic attack) 03/23/2008 DX:TIA (transient ischemic attack) Hypothyroid 05/28/2017 DX:Hypothyroid History of transient ischemi c attack (TIA) 03/23/2008 DX:History of transient isch emic attack (TIA) Allergic rhinitis 06/28/2016 DX:Allergic rh initis Chronic allergic conjunctivitis 01/14/2013 DX:Chronic allergic conjunctivitis COPD (chronic obstructive pu lmonary disease) ([facility]) 06/21/2016 DX:COPD (chronic obstructive pulmonary disease) ([facility]) Depression 12/26/2016 DX:Depression Dysphagia 10/09/2016 DX:Dysphagia Gastroesophageal reflux disease 12/26/2016 DX:Gastroesophageal reflux disease 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; 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 PVD (peripheral vascular dis ease) ([facility]) 10/19/2020 DX:PVD (peripheral vascular disease) ([facility]); COMMENT: bilateral Family History Medical History Relation Name Comments Other cancer Father stomach, esopha geal and liver ca Breast cancer Father's side 1 father's co usin Prostate cancer Father's side 2 father's uncle & that uncle's 2 son's Coronary artery disease Mother Thyr oid Disorder Hypertension Sister ADD / ADHD Son Colon cancer Neg Hx Ovarian cancer Neg Hx Uterine cancer Neg Hx Relation Name Status Comments Father stomach and adeola er cancer Father's side 1 Father's side 2 Mother Alive heart - thyroid - overweight - bronchitis - arthritis Sister Alive overweight - ht n- asthma- food allergies Son Social History Tobacco Use Types Packs/Day Years Used Date Smoking Tobacco: Former Cigarettes 0.3 26.1 0 04/01/1989 - 05/02/2015 Smokeless Tobacco: Never Alcohol Use Standard Drinks/Week Comments No 0 (1 standard drink = 0.6 oz pur e alcohol) Sex and Gender Information Value Date Recorded Sex Assigned at Not on file Gender Identity Not on file Sexual Orientation Not on file Obstetrics History Last Filed Vital Signs Vital Sign Reading Time Taken Comments Blood Pressure 120/80 08/31/2021 3:08 PM EDT Pulse 98 08/31/2021 3:08 PM EDT Temperature - - Respiratory Rate - - Oxygen Saturation - - Inhaled Oxygen Concentration - - Weight 178 kg (392 lb) 08/31/2021 3:08 PM EDT Height 160 cm (5' 3 ) 08/31/2021 3:08 PM EDT Body Mass Index 69.44 08/31/2021 3:08 PM EDT Plan of Treatment Health Maintenance Due Date Last Done Comments Breast Cancer Screening 1972 Diabetes: Annual GFR (Glomerular Filtration Rate) 1972 Diabetes: Annual Foot Exam 01/24/1982 Diabetes: Annual Retina Eye Exam 01/24/1982 Hepatitis A Vaccines (1 of 2 - Risk 2-dose series) 01/24/1991 Hepatitis B Vaccines (1 of 3 - 19+ 3-dose series) 01/24/1991 Cervical Cancer Screening: Pap Smear 01/24/1993 Pneumococcal Vaccine: Pediatrics (0 to 5 Years) and At-Risk Patients (6 to 64 Years) (2 of 2 - PCV) 12/01/2016 12/02/2015 DTaP,Tdap,and Td Vaccines (2 - Td or Tdap) 03/23/2020 03/23/2010 Zoster Vaccines (1 of 2) 01/24/2022 Cholesterol Screening (Lipid Panel) 03/06/2022 Colorectal Cancer Screening: Colonoscopy 03/06/2022 Depression Screening 03/06/2022 HIV Screening 03/06/2022 Hepatitis C Screening 03/06/2022 Social Influencers of Health Screening 03/06/2022 Diabetes: Annual Urine Albumin-Creatinine Ratio (uACR) 03/08/2022 Diabetes: Blood Sugar Control Test (HGBA1C) 03/08/2022 COVID-19 Vaccine ( season) 2023 Influenza Vaccine (#1) 2023 8, 01/05/2016, 11/30/2014, Additional history exists HIB Vaccines Aged Out No longer eligi ble based on patient's age to complete this topic HPV Vaccines Aged Out No longer eligi ble based on patient's age to complete this topic IPV Vaccines Aged Out No longer eligi ble based on patient's age to complete this topic MMR Vaccines Aged Out No longer eligi ble based on patient's age to complete this topic Meningococcal ACWY Vaccine Aged Out N o longer eligible based on patient's age to complete this topic RSV Immunization Patients Under 20 months Aged Out No longer eligible based on patient's age to complete this topic Varicella Vaccines Aged Out No longer eligible based on patient's age to complete this topic
== END 2024-05-01 17:05 | disposition home or self-care (01) ==
LOC: HO.HMCFM 15:44
PROVIDERS: PCP Internal Medicine; Visit Provider Internal Medicine
DX: J96.11 Chronic respiratory failure with hypoxia (principal); E11.69 Type 2 diabetes mellitus with other specified complication; F06.30 Mood disorder due to known physiological condition, unspecified

== ENCOUNTER → 2024-05-01 15:44 | Outpatient (BNVA) | payer OTHER, SELFPAY | PROVIDERS: PCP Internal Medicine; Visit Provider Internal Medicine ==

== ENCOUNTER 2024-05-04 14:40 | Outpatient (REF) | payer OTHER, SELFPAY ==
[2024-05-04 16:08] LABS: Alanine Aminotransferase 20 U/L (0-31); Albumin Level 3.6 g/dL (3.5-5.0); Anion Gap 11 (12-20); Aspartate Amino Transferase 29 U/L (5-31); Bilirubin Total 0.4 mg/dL (0.0-1.0); Blood Urea Nitrogen 21 mg/dL (9-16); Calcium 8.5 mg/dL (8.4-10.2); Carbon Dioxide 36 mmol/L (22-29); Chloride 100 mmol/L (96-108); Estimated Glomerular Filt Rate > 60; Glucose Random 108 mg/dL (60-115); Iron 31 mcg/dL (30-160); Percent Iron Saturation 12 % (15-50); Potassium 3.9 mmol/L (3.3-5.1); Sodium 143 mmol/L (135-145); Total Iron Binding Capacity 267 mcg/dL (228-428); Total Protein 7.3 g/dL (6.5-8.0); Unsaturated Iron Binding 236 ug/dL
[2024-05-04 16:26] LABS: Alkaline Phosphatase 72 U/L (39-117); TSH reflex Free T4 21.59 uIU/mL (0.32-4.0)
[2024-05-04 16:38] LABS: Folate 8.4 ng/mL (> or = 4.0); Vitamin B12 352 pg/mL (200-900)
--- OUTSIDE RECORDS SUMMARY | 2024-05-04 16:55 | XMS_ITS | Encounter Summary ---
Author Organization [facility] Address [address] [place] [address] Care Team Providers Care Client Technologies Specialist Name Role Phone Isela Roe MD Unavailable [phone] Layla Segal MD Primary Care Provider [phone] [facility], Pcp Primary Care Provider Unavailabl e Encounter Details Date Type Department Care Team Description 04/09/2021 Night Triage Doc Medical Records [address] [place] [address] Abstract, Provider Social History Tobacco Use Types Packs/Day Years Used Date Smoking Tobacco: Former Cigarettes 0.3 26 0 04/01/1989 - 05/02/2015 Smokeless Tobacco: Never Alcohol Use Standard Drinks/Week Comments No 0 (1 standard drink = 0.6 oz pur e alcohol) Sex Assigned at Date Recorded Not on file documented as of this encounter Plan of Treatment Not on file documented as of this encounter Visit Diagnoses Not on filedocumented in this encounter Care Teams Client Technologies Specialist Relationship Specialty Start Date End Date Layla Segal MD [address] [place] [address] PCP - General Internal Medicine 12/13/20 01/07/22 [facility], Pcp [address] [place] [address] PCP - General Internal Medicine 01/08/22 Isela Roe MD [address] [place] [address] Specialist Cardiology 10/28/20 documented as of this encounter
--- OUTSIDE RECORDS SUMMARY | 2024-05-04 16:55 | XMS_ITS | Encounter Summary ---
Author Organization [facility] Address [address] [place] [address] Care Team Providers Care District Or District Office Director Name Role Phone sIela Roe MD Unavailable [phone] Layla Segal MD Primary Care Provider [phone] [facility], Pcp Primary Care Provider Unavailabl e Reason for Visit * Reason Onset Date Comments refill request 04/10/2021 Encounter Details Date Type Department Care Team Description 04/10/2021 Refill Pulmonology - [place] [address] [facility] [address] [place] [address] Morales Richards MD [address] [place] [phone] refill request Social History Tobacco Use Types Packs/Day Years [...] on filedocumented in this encounter Care Teams District Or District Office Director Relationship Specialty Start Date End Date Layla Segal MD [address] [place] [address] PCP - General Internal Medicine 12/13/20 01/07/22 [facility], Pcp [address] [place] [address] PCP - General Internal Medicine 01/08/22 Isela Roe MD [address] [place] [address] Specialist Cardiology 10/28/20 documented as of this encounter
--- OUTSIDE RECORDS SUMMARY | 2024-05-04 16:55 | XMS_ITS | Encounter Summary ---
Author Organization [facility] Address [address] [place] [address] Care Team Providers Care Site Identification Specialist Name Role Phone Mark Alfonso MD Primary Care Provider Unavail able Janessa Langley MD Primary Care Provider Unavaila Mark Valera MD Primary Care Provider Unavail able Janessa Langley MD Primary Care Provider Unavaila Mark Mayo MD Primary Care Provider Unav ailable Janessa Langley MD Primary Care Provider Unavaila Layla Juarez MD Primary Care Provider [phone] Amparo Pressley MD Primary Care Provider Un available Isela Roe MD Unavailable [phone] Layla Segal MD Primary Care Provider [phone] [facility], Pcp Primary Care Provider Unavailabl e Encounter Details Date Type Department Care Team Description 08/02/2015 Refill Adult Medicine [address] [id number] Roni Toscano MD [address] [place] [address] Social History Tobacco Use Types Packs/Day Years Used Date Smoking Tobacco: Former Cigarettes 0.3 Q uit: 05/02/2015 Smokeless Tobacco: Never Alcohol Use Standard Drinks/Week Comments No 0 (1 standard drink = 0.6 oz pur e alcohol) Sex Assigned at Date Recorded Not on file documented as of this encounter Miscellaneous Notes * Telephone Encounter - Linda Gonzalez M.A. - 08/02/2015 11:11 AM EDTFrom: Kristen Bui To: Roni Toscano MD Sent: 08/02/2015 11:00 AM EDT Subject: Medication Renewal Request Original authorizing provider: MD Kristen Yepez would like a refill of the following medications: tizanidine (ZANAFLEX) 4 MG tablet [Roni Toscano MD] Preferred pharmacy: [facility] [address] [place] [address] Comment: I need refills of both of these please Medication renewals requested in this message routed to other providers: albuterol (PROVENTIL) (2.5 MG/3ML) 0.083% nebulizer solution [Mark Alfonso MD] documented in this encounter Plan of Treatment Not on file documented as of this encounter Visit Diagnoses Not on filedocumented in this encounter Care Teams Site Identification Specialist Relationship Specialty Start Date End Date Mark Alfonso MD PCP - General Internal Medicine 06/09/12 09/06/15 Janessa Langley MD PCP - General Internal Medicine 09/07/15 09/08/15 Mark Alfonso MD PCP - General Internal Medicine 09/09/15 12/01/15 Janessa Langley MD PCP - General Internal Medicine 12/02/15 11/03/19 Mark Caraballo MD PCP - General Family Practice 11/04/19 04/13/20 Janessa Langley MD PCP - General Internal Medicine 04/14/20 08/08/20 Layla Segal MD [address] [place] [address] PCP - General Internal Medicine 08/09/20 10/19/20 Amparo Pressley MD [address] [place] [address] PCP - General Internal Medicine 10/20/20 12/12/20 Layla Segal MD [address] [place] [address] PCP - General Internal Medicine 12/13/20 01/07/22 [facility], Pcp [address] [place] [address] PCP - General Internal Medicine 01/08/22 Isela Roe MD [address] [facility] [address] [place] [address] Specialist Cardiology 10/28/20 documented as of this encounter
--- OUTSIDE RECORDS SUMMARY | 2024-05-04 16:55 | XMS_ITS | Encounter Summary ---
Author Organization [facility] Address [address] [place] [address] Care Team Providers Care Shingle Grader Name Role Phone Mark Alfonso MD Primary Care Provider Unavail able Janessa Langley MD Primary Care Provider Unavaila Mark Valera MD Primary Care Provider Unavail able Janessa Langley MD Primary Care Provider Unavaila Mark Mayo MD Primary Care Provider Unav ailable Janessa Langley MD Primary Care Provider Unavaila Layla Juarez MD Primary Care Provider [phone] Amparo Pressley MD Primary Care Provider Un available Isela Roe MD Unavailable [phone] Layla Segal MD Primary Care Provider [phone] [facility], Pcp Primary Care Provider Unavailabl e Encounter Details Date Type Department Care Team Description 06/19/2015 Pt. 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 - 06/20/2015 8:53 AM EDTFrom: Kristen Bui To: Denia Edge MD Sent: 06/19/2015 2:27 PM EDT Subject: extreme pain with period Hi I started my period this morning and I have take ibprophen and naproxen to relieve the pain and it works for a short period of time and then the intense pain is back. i have been in bed all day with a heating pad and when I do get up to go to the bathroom my pelvis and my hips are hurting . I was wondering if you could recommend what could help relieve this pain so that I can be more productive and be able to be out of bedd more than just going to the bathroom and or to take a hot shower. Sincerly Kristen Bui documented in this encounter Plan of Treatment Not on file documented as of this encounter Visit Diagnoses Diagnosis Dysmenorrhea- Primary documented in this encounter Care Teams Shingle Grader Relationship Specialty Start Date End Date Mark [...] Internal Medicine 04/14/20 08/08/20 Layla Segal MD [address] [place] [address] PCP - General Internal Medicine 08/09/20 10/19/20 Amparo Pressley MD [address] [place] [address] PCP - General Internal Medicine 10/20/20 12/12/20 Lalya Segal MD [address] [place] [address] PCP - General Internal Medicine 12/13/20 01/07/22 Community, [address] [place] [address] PCP - General Internal Medicine 01/08/22 Isela Roe MD [address] [facility] [address] [place] [address] Specialist Cardiology 10/28/20 documented as of this encounter
--- OUTSIDE RECORDS SUMMARY | 2024-05-04 16:55 | XMS_ITS | Encounter Summary ---
Author Organization [facility] Address [address] [place] [address] Care Team Providers Care Marine Service Manager Name Role Phone Isela Roe MD Unavailable [phone] Layla Segal MD Primary Care Provider [phone] [facility] Primary Care Provider Unavailabl e Reason for Visit * Reason Comments E-prescribe Rx Request Encounter Details Date Type Department Care Team Description 02/01/2021 Refill Pulmonology - [place] [address] [facility] [address] [place] [address] Morales Richards MD [address] [place] [phone] E-prescribe Rx Request Social History Tobacco Use Types Packs/Day Years Used Date Smoking Tobacco: Former Cigarettes 0.3 26 0 04/01/1989 - 05/02/2015 Smokeless Tobacco: Never Alcohol Use Standard Drinks/Week Comments No 0 (1 standard drink = 0.6 oz pur e alcohol) Sex Assigned at Date Recorded Not on file documented as of this encounter Miscellaneous Notes * Telephone Encounter - Kathy Chambers - 02/03/2021 9:21 AM EDT Patient would like script to be: E-PRESCRIBED/FAXED TO PHARMACY WHEN WAS THE PATIENT'S LAST APPOINTMENT IN ADULT MEDICINE? 12/23/20 WHEN WAS THE LAST TIME THE PATIENT SAW THEIR PCP? Same as above Does patient have an upcoming appointment? No, not due until 06/22/21 (THE MEDICATION REQUESTED IS ON THE MED LIST ABOVE) All of the medications requested were on the CURRENT MEDS list Did you check the Pharmacy information above?: YES Patient wants: 30 -day supply Is this a mail order prescription request ? NO If the refill is from a FAXED refill request what is the RX # listed on the fax? N/A Patients current insurance carrier is: Payor: [employer] / Plan: [employer] HMO F 1+/$0 / Product Type: [id number] documented in this encounter Plan of Treatment Not on file documented as of this encounter Visit Diagnoses Not on filedocumented in this encounter Care Teams Marine Service Manager Relationship Specialty Start Date End Date Layla Segal MD [address] [place] [address] PCP - General Internal Medicine 12/13/20 [facility] [address] [place] [address] PCP - General Internal Medicine 01/08/22 Isela Roe MD [address] [place] [address] Specialist Cardiology 10/28/20 documented as of this encounter
--- OUTSIDE RECORDS SUMMARY | 2024-05-04 16:55 | XMS_ITS | Encounter Summary ---
Author Organization [facility] Address [address] [place] [address] Care Team Providers Care Flatbed Driver Name Role Phone Isela Roe MD Unavailable [phone] Layla Segal MD Primary Care Provider [phone] [facility] Primary Care Provider Unavailabl e Reason for Visit * Reason Comments E-prescribe Rx Request Encounter Details Date Type Department Care Team Description 03/21/2021 Refill Pulmonology - [place] [address] [facility] [address] [place] [address] Morales Richards MD [address] [place] [phone] E-prescribe Rx Request Social History Tobacco Use Types Packs/Day Years Used Date Smoking Tobacco: Former Cigarettes 0.3 26 0 04/01/1989 - 05/02/2015 Smokeless Tobacco: Never Alcohol Use Standard Drinks/Week Comments No 0 (1 standard drink = 0.6 oz pur e alcohol) Sex Assigned at Date Recorded Not on file documented as of this encounter Miscellaneous Notes * Telephone Encounter - Yanely Vaughan - 03/22/2021 9:09 AM EST Susie patient * Telephone Encounter - Kathy Chambers - 03/22/2021 8:48 AM EST Patient would like script to be: E-PRESCRIBED/FAXED TO PHARMACY WHEN WAS THE PATIENT'S LAST APPOINTMENT IN ADULT MEDICINE? 12/23/20 WHEN WAS THE LAST TIME THE PATIENT SAW THEIR PCP? Same as above Does patient have an upcoming appointment? No (THE MEDICATION REQUESTED IS ON THE MED [...] [employer] HMO F 1+/$0 / Product Type: [id number] documented in this encounter Plan of Treatment Not on file documented as of this encounter Visit Diagnoses Not on filedocumented in this encounter Care Teams Flatbed Driver Relationship Specialty Start Date End Date Layla Segal MD [address] [place] [address] PCP - General Internal Medicine 12/13/20 01/07/[address] [address] PCP - General Internal Medicine 01/08/22 Isela Roe MD [address] [place] [address] Specialist Cardiology 10/28/20 documented as of this encounter
--- OUTSIDE RECORDS SUMMARY | 2024-05-04 16:55 | XMS_ITS | Encounter Summary ---
Author Organization [facility] Address [address] [place] [address] Care Team Providers Care Career Resource Technician Name Role Phone Mark Alfonso MD Primary Care Provider Unavail able Janessa Langley MD Primary Care Provider Unavaila Mark Valera MD Primary Care Provider Unavail able Janessa Langley MD Primary Care Provider Unavaila Mark Mayo MD Primary Care Provider Unav ailable Janessa Langley MD Primary Care Provider Unavaila Layla Juarez MD Primary Care Provider [phone] Amparo Pressley MD Primary Care Provider Un available Isela Roe MD Unavailable [phone] Layla Segal MD Primary Care Provider [phone] [facility], Pcp Primary Care Provider Unavailabl e Encounter Details Date Type Department Care Team Description 07/29/2015 Release of Information Medical Records [address] [place] [id number] Abstract, Provider Social History Tobacco Use Types [...] on filedocumented in this encounter Care Teams Career Resource Technician Relationship Specialty Start Date End Date Mark [...] Internal Medicine 04/14/20 08/08/20 Layla Segal MD [address] [place] [address] PCP - General Internal Medicine 08/09/20 10/19/20 Amparo Pressley MD [address] [place] [address] PCP - General Internal Medicine 10/20/20 12/12/20 Layla Segal MD [address] [place] [address] PCP - General Internal Medicine 12/13/20 01/07/22 [facility], Pcp [address] [address] PCP - General Internal Medicine 01/08/22 Isela Roe MD [address] [address] Specialist Cardiology 10/28/20 documented as of this encounter
--- OUTSIDE RECORDS SUMMARY | 2024-05-04 16:55 | XMS_ITS | Clinical Summary ---
Author Organization [facility] Address [address] [place] [address] Care Team Providers Care Energy Rater Name Role Phone Unavailable Primary Care Provider Unavailabl e Surgical History Surgery Date Site/Laterality Comments KNEE SURGERY 05/2003 Right PROCEDURE: HISTORICAL KNEE SURGERY THYROIDECTOMY 06/2010 PROCEDURE: HISTORICAL TOTAL THYROIDECTOMY; COMMENT: papillary cancer TUBAL LIGATION 12/2007 PROCEDURE: HISTORICAL TUBAL LIGATION; COMMENT: with c/s OTHER SURGICAL HISTORY 06/2012 PROCEDURE: [place] BX/EXC LYMPH NODE OPEN DEEP CERVICAL NODE; [...] conjunctivitis COPD (chronic obstructive pu lmonary disease) ([facility]) 06/21/2016 DX:COPD (chronic obstructive pulmonary disease) ([facility]) Depression 12/26/2016 DX:Depression Dysphagia 10/09/2016 DX:Dysphagia Gastroesophageal reflux disease 12/26/2016 DX:Gastroesophageal reflux disease 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
--- OUTSIDE RECORDS SUMMARY | 2024-05-04 16:55 | XMS_ITS | Encounter Summary ---
Author Organization [facility] Address [address] [place] [address] Care Team Providers Care Engineering Teacher Name Role Phone Mark Alfonso MD Primary Care Provider Unavail able Janessa Langley MD Primary Care Provider Unavaila Mark Valera MD Primary Care Provider Unavail able Janessa Langley MD Primary Care Provider Unavaila Mark Mayo MD Primary Care Provider Unav ailable Janessa Langley MD Primary Care Provider Unavaila Layla Juarez MD Primary Care Provider [phone] Amparo Pressley MD Primary Care Provider Un available Isela Roe MD Unavailable [phone] Layla Segal MD Primary Care Provider [phone] [facility], Pcp Primary Care Provider Unavailabl e Encounter Details Date Type Department Care Team Description 08/14/2015 Pt. Non Urgent Medic al Question Adult Medicine [address] [address] Mark Alfonso MD Social History Tobacco Use Types Packs/Day Years Used Date Smoking Tobacco: Former Cigarettes 0.3 Q uit: 05/02/2015 Smokeless Tobacco: Never Alcohol Use Standard Drinks/Week Comments No 0 (1 standard drink = 0.6 oz pur e alcohol) Sex Assigned at Date Recorded Not on file documented as of this encounter Progress Notes * She Farooq C.M.A. - 08/14/2015 3:45 PM EDTFrom: Kristen Bui To: Mark Alfonso MD Sent: 08/14/2015 2:53 PM EDT Subject: Thyriod Blood Work collected 08/02/2015 Free Thyroxine 2.02 h (.70-1.80) Thyriod Stimulating Hormone .30 L ((.40-4.00) The bloodwork was done @ [facility] on 08/02/2015 documented in this encounter Plan of Treatment Not on file documented as of this encounter Visit Diagnoses Not on filedocumented in this encounter Care Teams Engineering Teacher Relationship Specialty Start Date End Date Mark [...] Internal Medicine 04/14/20 08/08/20 Layla Segal MD [address] [place] [address] PCP - General Internal Medicine 08/09/20 10/19/20 Amparo Pressley MD [address] [place] [address] PCP - General Internal Medicine 10/20/20 12/12/20 Layla Segal MD [address] [place] [address] PCP - General Internal Medicine 12/13/20 01/07/22 [facility], Pcp [address] [address] PCP - General Internal Medicine 01/08/22 Isela Roe MD [address] [address] Specialist Cardiology 10/28/20 documented as of this encounter
--- OUTSIDE RECORDS SUMMARY | 2024-05-04 16:55 | XMS_ITS | Encounter Summary ---
Author Organization [facility] Address [address] [place] [address] Care Team Providers Care Mutual Fund Sales Agent Name Role Phone Mark Alfonso MD Primary Care Provider Unavail able Janessa Langley MD Primary Care Provider Unavaila Mark Valera MD Primary Care Provider Unavail able Janessa Langley MD Primary Care Provider Unavaila Mark Mayo MD Primary Care Provider Unav ailable Janessa Langley MD Primary Care Provider Unavaila Layla Juarez MD Primary Care Provider [phone] Amparo Pressley MD Primary Care Provider Un available Isela Roe MD Unavailable [phone] Layla Segal MD Primary Care Provider [phone] [facility], Pcp Primary Care Provider Unavailabl e Encounter Details Date Type Department Care Team Description 08/12/2015 Calendering Supervisor Report Medical Records [address] [place] [address] Rickey Villalpando MD Social History Tobacco Use Types Packs/Day [...] on filedocumented in this encounter Care Teams Mutual Fund Sales Agent Relationship Specialty Start Date End Date Mark [...] Internal Medicine 04/14/20 08/08/20 Layla Segal MD [address] [place] [address] PCP - General Internal Medicine 08/09/20 10/19/20 Amparo Pressley MD [address] [place] [address] PCP - General Internal Medicine 10/20/20 12/12/20 Layla Segal MD [address] [place] [address] PCP - General Internal Medicine 12/13/20 01/07/22 [facility], Pcp [address] [address] PCP - General Internal Medicine 01/08/22 Isela Roe MD [address] [address] Specialist Cardiology 10/28/20 documented as of this encounter
--- OUTSIDE RECORDS SUMMARY | 2024-05-04 16:55 | XMS_ITS | Encounter Summary ---
Author Organization [facility] Address [address] [place] [address] Care Team Providers Care Manager Statistics Name Role Phone Mark Alfonso MD Primary Care Provider Unavail able Janessa Langley MD Primary Care Provider Unavaila Mark Valera MD Primary Care Provider Unavail able Janessa Langley MD Primary Care Provider Unavaila Mark Mayo MD Primary Care Provider Unav ailable Janessa Langley MD Primary Care Provider Unavaila Layla Juarez MD Primary Care Provider [phone] Amparo Pressley MD Primary Care Provider Un available Isela Roe MD Unavailable [phone] Layla Segal MD Primary Care Provider [phone] [facility], Pcp Primary Care Provider Unavailabl e Encounter Details Date Type Department Care Team Description 08/07/2015 Pt. Non Urgent Medical Question TELEPHONE INFORMATION CLERK - [address] [address] Denia Edge MD Social History Tobacco Use Types Packs/Day Years Used Date Smoking Tobacco: Former Cigarettes 0.3 Q uit: 05/02/2015 Smokeless Tobacco: Never Alcohol Use Standard Drinks/Week Comments No 0 (1 standard drink = 0.6 oz pur e alcohol) Sex Assigned at Date Recorded Not on file documented as of this encounter Progress Notes * Penny Ulloa R.N. - 08/08/2015 9:10 AM EDTFrom: Kristen Bui To: Denia Edge MD Sent: 08/07/2015 9:12 PM EDT Subject: Extreme pain with period The pain really has not let up taking the control, my period has come 11 days early last month and it started tonight which makes it almost 20days early. The pain tonight is awful I cant walk or lay on my back or leftside.. I can no longer take advil because my stomach and tyrenol is doing nothing at all.. I think I need to go to the next step,please let me know what you think would be the best way to go with this issue. Thank You Kristen Bui documented in this encounter Plan of Treatment Not on file documented as of this encounter Visit Diagnoses Not on filedocumented in this encounter Care Teams Manager Statistics Relationship Specialty Start Date End Date Mark [...] Internal Medicine 04/14/20 08/08/20 Layla Segal MD [address] [place] [address] PCP - General Internal Medicine 08/09/20 10/19/20 Amparo Pressley MD [address] [place] [address] PCP - General Internal Medicine 10/20/20 12/12/20 Layla Segal MD [address] [place] [address] PCP - General Internal Medicine 12/13/20 01/07/22 [facility], [address] [address] PCP - General Internal Medicine 01/08/22 Isela Roe MD 300 [facility] [address] [place] [address] Specialist Cardiology 10/28/20 documented as of this encounter
--- OUTSIDE RECORDS SUMMARY | 2024-05-04 16:55 | XMS_ITS | Encounter Summary ---
Author Organization [facility] Address [address] [place] [address] Care Team Providers Care Inspector Handbag Frames Name Role Phone Mark Alfonso MD Primary Care Provider Unavail able Janessa Langley MD Primary Care Provider Unavaila aMrk Valera MD Primary Care Provider Unavail able Janessa Langley MD Primary Care Provider Unavaila Mark Mayo MD Primary Care Provider Unav ailable Janessa Langley MD Primary Care Provider Unavaila Layla Juarez MD Primary Care Provider [phone] Amparo Pressley MD Primary Care Provider Un available Isela Roe MD Unavailable [phone] Layla Segal MD Primary Care Provider [phone] [facility], Pcp Primary Care Provider Unavailabl e Encounter Details Date Type Department Care Team Description 08/02/2015 Refill Adult Medicine [address] [address] Mark Alfonso MD Social History Tobacco Use [...] on filedocumented in this encounter Care Teams Inspector Handbag Frames Relationship Specialty Start Date End Date Mark [...] Internal Medicine 04/14/20 08/08/20 Layla Segal MD [address] [place] [address] PCP - General Internal Medicine 08/09/20 10/19/20 Amparo Pressley MD [address] [place] [address] PCP - General Internal Medicine 10/20/20 12/12/20 Layla Segal MD [address] [place] [address] PCP - General Internal Medicine 12/13/20 01/07/22 [facility], Pcp [address] [address] PCP - General Internal Medicine 01/08/22 Isela Roe MD 300 [facility] [address] [place] [address] Specialist Cardiology 10/28/20 documented as of this encounter
--- OUTSIDE RECORDS SUMMARY | 2024-05-04 16:55 | XMS_ITS | Encounter Summary ---
Author Organization [facility] Address [address] [place] [address] Care Team Providers Care Interactive Media Marketing Director Name Role Phone Janessa Langley MD Primary Care Provider Mark Thomas MD Primary Care Provider Unav ailable Janessa Langley MD Primary Care Provider Unavaila Layla Juarez MD Primary Care Provider [phone] Amparo Pressley MD Primary Care Provider Un available Isela Roe MD Unavailable [phone] Layla Segal MD Primary Care Provider [phone] [facility] Encounter Details Date Type Department Care Team Description 01/24/2016 [facility] Medical Records [address] [place] [address] Abstract, Provider Social History Tobacco Use Types [...] on filedocumented in this encounter Care Teams Interactive Media Marketing Director Relationship Specialty Start Date End Date Janessa Langley MD PCP - General Internal Medicine 12/02/15 11/03/19 Mark Caraballo MD PCP - General Family Practice 11/04/19 04/13/20 Janessa Langley MD PCP - General Internal Medicine 04/14/20 08/08/20 Layla Seagl MD [address] [place] [address] PCP - General Internal Medicine 08/09/20 10/19/20 Amparo Pressley MD [address] [place] [address] PCP - General Internal Medicine 10/20/20 12/12/20 Layla Segal MD [address] [place] [address] PCP - General Internal Medicine 12/13/20 01/07/22 [facility], Pcp 300 [facility] [address] [place] [address] PCP - General Internal Medicine 01/08/22 Isela Roe MD 300 [facility] [address] [place] [address] Specialist Cardiology 10/28/20 documented as of this encounter
--- OUTSIDE RECORDS SUMMARY | 2024-05-04 16:55 | XMS_ITS | Encounter Summary ---
Author Organization [facility] Address [address] [place] [address] Care Team Providers Care Fish Trapper Name Role Phone Mark Alfonso MD Primary Care Provider Unavail able Janessa Langley MD Primary Care Provider Unavaila Mark Valera MD Primary Care Provider Unavail able Janessa Langley MD Primary Care Provider Unavaila Mark Mayo MD Primary Care Provider Unav ailable Janessa Langley MD Primary Care Provider Unavaila Layla Juarez MD Primary Care Provider [phone] Amparo Pressley MD Primary Care Provider Un available Isela Roe MD Unavailable [phone] Layla Segal MD Primary Care Provider [phone] [facility], Pcp Primary Care Provider Unavailabl e Encounter Details Date Type Department Care Team Description 07/20/2015 Pt. Non Urgent Medic al Question Pulmonology [address] [place] [address] Shekhar Carrasco MD Social History Tobacco Use Types Packs/Day Years Used Date Smoking Tobacco: Former Cigarettes 0.3 Q uit: 05/02/2015 Smokeless Tobacco: Never Alcohol Use Standard Drinks/Week Comments No 0 (1 standard drink = 0.6 oz pur e alcohol) Sex Assigned at Date Recorded Not on file documented as of this encounter Progress Notes * Jen Torres - 07/21/2015 8:55 AM EDTFrom: Kristen Bui To: Shekhar Carrasco MD Sent: 07/20/2015 7:57 PM EDT Subject: Reason for missed appointment with Moy I am sorry I missed my appointment on this past Saturday, Due to the alternator in my van going,I wasnot able to drive or go anywhere, As for calling my cellphone was not charging and I was not able to call or recieve calls. Thierno very sorry for the inconvience and will not rescedule untill I know I will be able to definitly make the apppointment. Thank You Abbe Bui cc of [place] documented in this encounter Plan of Treatment Not on file documented as of this encounter Visit Diagnoses Not on filedocumented in this encounter Care Teams Fish Trapper Relationship Specialty Start Date End Date Mark Alfonso MD PCP - General Internal Medicine 06/09/12 09/06/15 Janessa Langley MD PCP - General Internal Medicine 09/07/15 09/08/15 Mark Alfonso MD PCP - General Internal Medicine 09/09/15 12/01/15 Janessa aLngley MD PCP - General Internal Medicine 12/02/15 11/03/19 Mark Caraballo MD PCP - General Family Practice 11/04/19 04/13/20 Janessa Langley MD PCP - General Internal Medicine 04/14/20 08/08/20 Layal Segal MD [address] [place] [address] PCP - General Internal Medicine 08/09/20 10/19/20 Amparo Pressley MD [address] [place] [address] PCP - General Internal Medicine 10/20/20 12/12/20 Layla Segal MD [address] [place] [address] PCP - General Internal Medicine 12/13/20 01/07/22 [facility], Pcp [address] [address] PCP - General Internal Medicine 01/08/22 Isela Roe MD 300 [facility] [address] [place] [address] Specialist Cardiology 10/28/20 documented as of this encounter
--- OUTSIDE RECORDS SUMMARY | 2024-05-04 16:55 | XMS_ITS | Encounter Summary ---
Author Organization [facility] Address [address] [place] [address] Care Team Providers Care After School Driver Name Role Phone Mark Alfonso MD Primary Care Provider Unavail able Janessa Langley MD Primary Care Provider Unavaila Mark Valera MD Primary Care Provider Unavail able Janessa Langley MD Primary Care Provider Unavaila Mark Mayo MD Primary Care Provider Unav ailable Janessa Langley MD Primary Care Provider Unavaila Layla Juarez MD Primary Care Provider [phone] Amparo Pressley MD Primary Care Provider Un available Isela Roe MD Unavailable [phone] Layla Segal MD Primary Care Provider [phone] [facility] Primary Care Provider Unavailabl e Encounter Details Date Type Department Care Team Description 06/01/2013 Top Knitter Report Medical Records [address] [place] [address] Sherry Panda Social History Tobacco Use Types Packs/Day Years Used Date Smoking Tobacco: Former Cigarettes 0.3 Q uit: 03/01/2011 Smokeless Tobacco: Never Comments:currently occasiona l Alcohol Use Standard Drinks/Week Comments No 0 (1 standard drink = 0.6 oz pur e alcohol) Sex Assigned at Date Recorded Not on file documented as of this encounter Plan of Treatment Not on file documented as of this encounter Visit Diagnoses Not on filedocumented in this encounter Care Teams After School Driver Relationship Specialty Start Date End Date Mark [...] Internal Medicine 04/14/20 08/08/20 Layla Segal MD [address] [place] [address] PCP - General Internal Medicine 08/09/20 10/19/20 Amparo Pressley MD [address] [place] [address] PCP - General Internal Medicine 10/20/20 12/12/20 Layla Segal MD [address] [place] [address] PCP - General Internal Medicine 12/13/20 01/07/22 [facility], Pcp [address] [address] PCP - General Internal Medicine 01/08/22 Isela Roe MD [address] [address] Specialist Cardiology 10/28/20 documented as of this encounter
--- OUTSIDE RECORDS SUMMARY | 2024-05-04 16:55 | XMS_ITS | Encounter Summary ---
Author Organization [facility] Address [address] [place] [address] Care Team Providers Care Software Engineering Supervisor Name Role Phone Mark Alfonso MD Primary Care Provider Unavail able Janessa Langley MD Primary Care Provider Unavaila Mark Valera MD Primary Care Provider Unavail able Janessa Langley MD Primary Care Provider Unavaila Mark Mayo MD Primary Care Provider Unav ailable Janessa Langley MD Primary Care Provider Unavaila Layla Juarez MD Primary Care Provider [phone] Amparo Pressley MD Primary Care Provider Un available Isela Roe MD Unavailable [phone] Layla Segal MD Primary Care Provider [phone] [facility], Pcp Primary Care Provider Unavailabl e Encounter Details Date Type Department Care Team Description 06/29/2015 Walk In Clinic Visit Medical Records [address] [place] [address] Abstract, Provider Social History Tobacco Use Types [...] on filedocumented in this encounter Care Teams Software Engineering Supervisor Relationship Specialty Start Date End Date Mark Alfonso MD PCP - General Internal Medicine 06/09/12 09/06/15 Janessa Langley MD PCP - General Internal Medicine 09/07/15 09/08/15 Mark Alfonso MD PCP - General Internal Medicine 09/09/15 12/01/15 Janessa Langley MD PCP - General Internal Medicine 12/02/15 11/03/19 Mark Caraballo MD PCP - General Family Practice 11/04/19 04/13/20 Janessa Langely MD PCP - General Internal Medicine 04/14/20 08/08/20 Layla Segal MD [address] [place] [address] PCP - General Internal Medicine 08/09/20 10/19/20 Amparo Pressley MD [address] [place] [address] PCP - General Internal Medicine 10/20/20 12/12/20 Layla Segal MD [address] [place] [address] PCP - General Internal Medicine 12/13/20 01/07/22 [facility], Pcp [address] [address] PCP - General Internal Medicine 01/08/22 Isela Roe MD [address] [address] Specialist Cardiology 10/28/20 documented as of this encounter
--- OUTSIDE RECORDS SUMMARY | 2024-05-04 16:55 | XMS_ITS | Encounter Summary ---
Author Organization [facility] Address [address] [place] [address] Care Team Providers Care Mounter Automatic Name Role Phone Janessa Langley MD Primary Care Provider Mark Thomas MD Primary Care Provider Unav ailable Janessa Langley MD Primary Care Provider Unavaila Layla Juarez MD Primary Care Provider [phone] Amparo Pressley MD Primary Care Provider Un available Isela Roe MD Unavailable [phone] Layla Segal MD Primary Care Provider [phone] [facility] Primary Care Provider Unavailabl e Encounter Details Date Type Department Care Team Description 02/03/2016 Night Triage Doc Medical Records [address] [place] [address] Abstract, Provider Social History Tobacco Use Types [...] on filedocumented in this encounter Care Teams Mounter Automatic Relationship Specialty Start Date End Date Janessa Langley MD PCP - General Internal Medicine 12/02/15 11/03/19 Mark Caraballo MD PCP - General Family Practice 11/04/19 04/13/20 Janessa Langley MD PCP - General Internal Medicine 04/14/20 08/08/20 Layla Segal MD [address] [place] [address] PCP - General Internal Medicine 08/09/20 10/19/20 Amparo Pressley MD [address] [place] [address] PCP - General Internal Medicine 10/20/20 12/12/20 Layla Segal MD [address] [place] [address] PCP - General Internal Medicine 12/13/20 01/07/22 [facility], Pcp 300 [facility] [address] [place] [address] PCP - General Internal Medicine 01/08/22 Isela Roe MD 300 [facility] [address] [place] [address] Specialist Cardiology 10/28/20 documented as of this encounter
--- OUTSIDE RECORDS SUMMARY | 2024-05-04 16:55 | XMS_ITS | Encounter Summary ---
Author Organization [facility] Address [address] [place] [address] Care Team Providers Care Lining Repairer Name Role Phone Amparo Pressley MD Primary Care Provider Un available Mark Alfonso MD Primary Care Provider Unavail able Janessa Langley MD Primary Care Provider Unavaila Mark Valera MD Primary Care Provider Unavail able Janessa Langley MD Primary Care Provider Unavaila Mark Mayo MD Primary Care Provider Unav ailable Janessa Langley MD Primary Care Provider Unavaila Layla Juarez MD Primary Care Provider [phone] Amparo Pressley MD Primary Care Provider Un available Isela Roe MD Unavailable [phone] Layla Segal MD Primary Care Provider [phone] [facility], Pcp Primary Care Provider Unavailabl e Encounter Details Date Type Department Care Team Description 07/11/2010 Postdoctoral Research Associate Report Medical Records [address] [place] [address] Lee Mackey MD Social History Tobacco Use Types Packs/Day Years Used Date Smoking Tobacco: Every Day Cigarettes 0.3 Smokeless Tobacco: Never Comments:currently occasiona l Alcohol Use Standard Drinks/Week Comments Not Asked 0 (1 standard drink = 0.6 oz pur e alcohol) Sex Assigned at Date Recorded Not on file documented as of this encounter Plan of Treatment Not on file documented as of this encounter Visit Diagnoses Not on filedocumented in this encounter Care Teams Lining Repairer Relationship Specialty Start Date End Date Amparo Pressley MD PCP - General 01/05/08 06/08/12 Mark Alfonso MD PCP - General Internal Medicine 06/09/12 09/06/15 Janessa Langley MD PCP - General Internal Medicine 09/07/15 09/08/15 Mark Alfonso MD PCP - General Internal Medicine 09/09/15 12/01/15 Janessa Langley MD PCP - General Internal Medicine 12/02/15 11/03/19 Mark Caraballo MD PCP - General Family Practice 11/04/19 04/13/20 Janessa Langley MD PCP - General Internal Medicine 04/14/20 08/08/20 Layla Segal MD [address] [place] [address] PCP - General Internal Medicine 08/09/20 10/19/20 Amparo Pressley MD PCP - General Internal Medicine 10/20/20 Layla Segal MD [address] [place] [address] PCP - General Internal Medicine 12/13/20 01/07/22 [facility], Pcp [address] [address] PCP - General Internal Medicine 01/08/22 Isela Roe MD [address] [address] Specialist Cardiology 10/28/20 documented as of this encounter
--- OUTSIDE RECORDS SUMMARY | 2024-05-04 16:55 | XMS_ITS | Encounter Summary ---
Author Organization [facility] Address [address] [place] [address] Care Team Providers Care Forming Yardage Control Operator Name Role Phone Isela Roe MD Unavailable [phone] Layla Segal MD Primary Care Provider [phone] [facility], Pcp Primary Care Provider Unavailabl e Encounter Details Date Type Department Care Team Description 12/29/2020 Telephone Pulmonology - [place] [address] [facility] [address] [place] [address] Morales Richards MD [address] [place] [address] Social History Tobacco Use Types Packs/Day Years Used Date Smoking Tobacco: Former Cigarettes 0.3 26 0 04/01/1989 - 05/02/2015 Smokeless Tobacco: Never Alcohol Use Standard Drinks/Week Comments No 0 (1 standard drink = 0.6 oz pur e alcohol) Sex Assigned at Date Recorded Not on file COVID-19 Exposure Response Date Recorded In the last month, have you been in contact with someone who was confirmed or suspected to have Coronavirus / COVID-19? Unable to assess 12/23/2020 8:33 AM EDT documented as of this encounter Miscellaneous Notes * Telephone Encounter - Yanely Dionytim - 12/30/2020 8:53 AM EDT I looked up her complience report and there is no data to print. * Telephone Encounter - Morales Richards MD - 12/29/2020 7:00 PM EDT Please get me a download of her CPAP documented in this encounter Plan of Treatment Not on file documented as of this encounter Visit Diagnoses Not on filedocumented in this encounter Care Teams Forming Yardage Control Operator Relationship Specialty Start Date End Date Layla Segal MD [address] [place] [address] PCP - General Internal Medicine 12/13/20 01/07/22 [facility], Pcp [address] [place] [address] PCP - General Internal Medicine 01/08/22 Isela Roe MD [address] [place] [address] Specialist Cardiology 10/28/20 documented as of this encounter
--- OUTSIDE RECORDS SUMMARY | 2024-05-04 16:55 | XMS_ITS | Encounter Summary ---
Author Organization [facility] Address [address] [place] [address] Care Team Providers Care Cast Associate Name Role Phone Janessa Langley MD Primary Care Provider Mark Thomas MD Primary Care Provider Unav ailable Janessa Langley MD Primary Care Provider Unavaila Layla Juarez MD Primary Care Provider [phone] Amparo Pressley MD Primary Care Provider Un available Isela Roe MD Unavailable [phone] Layla Segal MD Primary Care Provider [phone] [facility] Primary Care Provider Unavailabl e Reason for Visit * Reason Onset Date Comments Medication 03/15/2016 Prior Authorization 03/15/2016 Encounter Details Date Type Department Care Team Description 03/15/2016 Telephone Medicine/Pediatrics - [address] [address] Janessa Langley MD Medication; Prior Authorization Social History Tobacco Use Types Packs/Day Years Used Date Smoking Tobacco: Former Cigarettes 0.3 Q uit: 05/02/2015 Smokeless Tobacco: Never Alcohol Use Standard Drinks/Week Comments No 0 (1 standard drink = 0.6 oz pur e alcohol) Sex Assigned at Date Recorded Not on file documented as of this encounter Miscellaneous Notes * Telephone Encounter - Leny Ratliff M.A. - 03/16/2016 9:59 AM EST Dx endometriosis Prior auth faxed to [facility] for lupron * Telephone Encounter - Mindy Tam - 03/15/2016 2:28 PM EST Fax rec'd from [facility] Stating they contacted patients insurance company to check status of the prior auth for lupron depot 3.75 mg kit. They have not yet rec'd a PAform from our office. (fax rec'd was faxed to [facility] 231 03/15/2016 KMS) documented in this encounter Plan of Treatment Not on file documented as of this encounter Visit Diagnoses Not on filedocumented in this encounter Care Teams Cast Associate Relationship Specialty Start Date End Date Janessa Langley MD PCP - General Internal Medicine 12/02/15 11/03/19 Mark Caraballo MD PCP - General Family Practice 11/04/19 04/13/20 Janessa Langley MD PCP - General Internal Medicine 04/14/20 08/08/20 Layla Segal MD [address] [place] [address] PCP - General Internal Medicine 08/09/20 10/19/20 Amparo Pressley MD [address] [place] [address] PCP - General Internal Medicine 10/20/20 12/12/20 Layla Segal MD [address] [place] [address] PCP - General Internal Medicine 12/13/20 01/07/22 [facility], Pcp [address] [address] PCP - General Internal Medicine 01/08/22 Isela Roe MD [address] [address] Specialist Cardiology 10/28/20 documented as of this encounter
--- OUTSIDE RECORDS SUMMARY | 2024-05-04 16:55 | XMS_ITS | Encounter Summary ---
Author Organization [facility] Address [address] [place] [address] Care Team Providers Care Camelid Fiber Sorter Name Role Phone Mark Alfonso MD Primary Care Provider Unavail able Janessa Langley MD Primary Care Provider Unavaila Mark Valera MD Primary Care Provider Unavail able Janessa Langley MD Primary Care Provider Unavaila Mark Mayo MD Primary Care Provider Unav ailable Janessa Langley MD Primary Care Provider Unavaila Layla Juarez MD Primary Care Provider [phone] Amparo Pressley MD Primary Care Provider Un available Isela Roe MD Unavailable [phone] Layla Segal MD Primary Care Provider [phone] [facility], Pcp Primary Care Provider Unavailabl e Encounter Details Date Type Department Care Team Description 08/12/2013 Walk In Clinic Visit Medical Records [address] [place] [address] Abstract, Provider Social History Tobacco Use Types Packs/Day Years Used Date Smoking Tobacco: Some Days Cigarettes 0.3 Last attempted to quit: 03/01/2011 Smokeless Tobacco: Never Comments:currently occasiona l Alcohol Use Standard Drinks/Week Comments No 0 (1 standard drink = 0.6 oz pur e alcohol) Sex Assigned at Date Recorded Not on file documented as of this encounter Plan of Treatment Not on file documented as of this encounter Visit Diagnoses Not on filedocumented in this encounter Care Teams Camelid Fiber Sorter Relationship Specialty Start Date End Date Mark [...] Internal Medicine 04/14/20 08/08/20 Layla Segal MD [address] [place] [address] PCP - General Internal Medicine 08/09/20 10/19/20 Amparo Pressley MD [address] [place] [address] PCP - General Internal Medicine 10/20/20 12/12/20 Layla Segal MD [address] [place] [address] PCP - General Internal Medicine 12/13/20 01/07/22 [facility], Pcp [address] [address] PCP - General Internal Medicine 01/08/22 Isela Roe MD [address] [address] Specialist Cardiology 10/28/20 documented as of this encounter
--- OUTSIDE RECORDS SUMMARY | 2024-05-04 16:55 | XMS_ITS | Encounter Summary ---
Author Organization [facility] Address [address] [place] [address] Care Team Providers Care Cattle Care Worker Name Role Phone Janessa Langley MD Primary Care Provider UnavailMark Guadarrama MD Primary Care Provider Unav ailable Janessa Langley MD Primary Care Provider Unavaila Layla Juarez MD Primary Care Provider [phone] Amparo Pressley MD Primary Care Provider Un available Isela Roe MD Unavailable [phone] Layla Segal MD Primary Care Provider [phone] [facility] Primary Care Provider Unavailabl e Reason for Visit * Reason Onset Date Comments Faxed Refill 02/17/2016 Encounter Details Date Type Department Care Team Description 02/17/2016 Refill TELECOMMUNICATION ENGINEER - [address] [id number] Denia Edge MD Faxed Refill Social History Tobacco Use Types Packs/Day Years Used Date Smoking Tobacco: Former Cigarettes 0.3 Q uit: 05/02/2015 Smokeless Tobacco: Never Alcohol Use Standard Drinks/Week Comments No 0 (1 standard drink = 0.6 oz pur e alcohol) Sex Assigned at Date Recorded Not on file documented as of this encounter Miscellaneous Notes * Telephone Encounter - Penny Ulloa R.N. - 02/17/2016 9:06 AM EST Letter sent to schedule follow up as per last notes * Telephone Encounter - Sharon Black - 02/17/2016 8:54 AM EST WHEN WAS THE PATIENTS LAST ANNUAL ACTING INSTRUCTOR EXAM? 06/16/15 Does patient have an upcoming appointment? No (THE MEDICATION REQUESTED IS ON THE MED LIST ABOVE) Did you check the Pharmacy information above?: YES Indicate how soon the patient needs the script: BY THE END OF THE DAY Patient would like script to be: E-PRESCRIBED/FAXED TO PHARMACY Is the doctor here today?: NO Can the message wait until the doctor returns?: YES Has the patient been told that the prescription will not be filled until the end of the day? NO [facility] / Plan: FFS HMO $0 [place] [id number] / Product Type: MEDICAID RISK documented in this encounter Plan of Treatment Not on file documented as of this encounter Visit Diagnoses Not on filedocumented in this encounter Care Teams Cattle Care Worker Relationship Specialty Start Date End Date Janessa Langley MD PCP - General Internal Medicine 12/02/15 11/03/19 Mark Caraballo MD PCP - General Family Practice 11/04/19 04/13/20 Janessa Langley MD PCP - General Internal Medicine 04/14/20 08/08/20 Layla Segal MD [address] [place] [address] PCP - General Internal Medicine 08/09/20 10/19/20 Amparo Pressley MD [address] [place] [address] PCP - General Internal Medicine 10/20/20 12/12/20 Layla Segal MD [address] [place] [address] PCP - General Internal Medicine 12/13/20 01/07/22 [facility]cp 300 [facility] [address] [place] [address] PCP - General Internal Medicine 01/08/22 Isela Roe MD 300 [facility] [address] [place] [address] Specialist Cardiology 10/28/20 documented as of this encounter
--- OUTSIDE RECORDS SUMMARY | 2024-05-04 16:56 | XMS_ITS | Encounter Summary ---
Author Organization [facility] Address [address] [place] [address] Care Team Providers Care Raise Driller Name Role Phone Mark Alfonso MD Primary Care Provider Unavail able Janessa Langley MD Primary Care Provider Unavaila Mark Mayo MD Primary Care Provider Unav ailable Janessa Langley MD Primary Care Provider Unavaila Layla Juarez MD Primary Care Provider [phone] Amparo Pressley MD Primary Care Provider Un available Isela Roe MD Unavailable [phone] Layla Segal MD Primary Care Provider [phone] [facility], Pcp Primary Care Provider Unavailabl e Encounter Details Date Type Department Care Team Description 10/20/2015 Orders Only Medical Records [address] [place] [address] Shekhar Carrasco MD Social History Tobacco Use Types Packs/Day Years Used Date Smoking Tobacco: Former Cigarettes 0.3 Q uit: 05/02/2015 Smokeless Tobacco: Never Alcohol Use Standard Drinks/Week Comments No 0 (1 standard drink = 0.6 oz pur e alcohol) Sex Assigned at Date Recorded Not on file documented as of this encounter Plan of Treatment Not on file documented as of this encounter Procedures Procedure Name Priority Date/Time Associated Diagnosis Comments OUTSIDE SLEEP STUDY Routine 10/10/2015 documented in this encounter Results * OUTSIDE SLEEP STUDY (10/10/2015) Shekhar Carrasco MD PULMONOLOGY documented in this encounter Visit Diagnoses Not on filedocumented in this encounter Care Teams Raise Driller Relationship Specialty Start Date End Date Mark Alfonso MD PCP - General Internal Medicine 09/09/15 12/01/15 Janessa Langley MD PCP - General Internal Medicine 12/02/15 11/03/19 Mark Caraballo MD PCP - General Family Practice 11/04/19 04/13/20 Janessa Langley MD PCP - General Internal Medicine 04/14/20 08/08/20 Layla Segal MD [address] [place] [address] PCP - General Internal Medicine 08/09/20 10/19/20 Amparo Pressley MD [address] [place] [address] PCP - General Internal Medicine 10/20/20 12/12/20 Layla Segal MD [address] [place] [address] PCP - General Internal Medicine 12/13/20 01/07/22 [facility], Pcp [address] [address] PCP - General Internal Medicine 01/08/22 Isela Roe MD [address] [address] Specialist Cardiology 10/28/20 documented as of this encounter
--- OUTSIDE RECORDS SUMMARY | 2024-05-04 16:56 | XMS_ITS | Encounter Summary ---
Author Organization [facility] Address [address] [place] [address] Care Team Providers Care Fire Protection Equipment Technician Name Role Phone Janessa Langley MD Primary Care Provider Mark Thomas MD Primary Care Provider Unav ailable Janessa Langley MD Primary Care Provider Unavaila Layla Juarez MD Primary Care Provider [phone] Amparo Pressley MD Primary Care Provider Un available Isela Roe MD Unavailable [phone] Layla Segal MD Primary Care Provider [phone] [facility] Primary Care Provider Unavailabl e Encounter Details Date Type Department Care Team Description 05/14/2017 Release of Information Medical Records [address] [place] [address] Abstract, Provider Social History Tobacco Use Types [...] on filedocumented in this encounter Care Teams Fire Protection Equipment Technician Relationship Specialty Start Date End Date Janessa Langley MD PCP - General Internal Medicine 12/02/15 11/03/19 Mark Caraballo MD PCP - General Family Practice 11/04/19 04/13/20 Janessa Langley MD PCP - General Internal Medicine 04/14/20 08/08/20 Layla Segal MD [address] [place] [address] PCP - General Internal Medicine 08/09/20 10/19/20 Amparo Pressley MD [address] [place] [address] PCP - General Internal Medicine 10/20/20 12/12/20 Layla Segal MD [address] [place] [address] PCP - General Internal Medicine 12/13/20 01/07/22 [facility], Pcp 300 [facility] [address] [place] [address] PCP - General Internal Medicine 01/08/22 Isela Roe MD 300 [facility] [address] [place] [address] Specialist Cardiology 10/28/20 documented as of this encounter
--- OUTSIDE RECORDS SUMMARY | 2024-05-04 16:56 | XMS_ITS | Encounter Summary ---
Author Organization [facility] Address [address] [place] [address] Care Team Providers Care Keyliner Name Role Phone Janessa Langley MD Primary Care Provider UnavailMark Guadarrama MD Primary Care Provider Unav ailable Janessa Langley MD Primary Care Provider Unavaila Layla Juarez MD Primary Care Provider [phone] Amparo Pressley MD Primary Care Provider Un available Isela Roe MD Unavailable [phone] Layla Segal MD Primary Care Provider [phone] [facility], [facility] Primary Care Provider Unavailabl e Encounter Details Date Type Department Care Team Description 05/16/2017 Pt. Non Urgent Medic al Question Physiatry - [address] [address] Christopher Wong DO Social History Tobacco Use Types Packs/Day Years Used Date Smoking Tobacco: Former Cigarettes 0.3 Q uit: 05/02/2015 Smokeless Tobacco: Never Alcohol Use Standard Drinks/Week Comments No 0 (1 standard drink = 0.6 oz pur e alcohol) Sex Assigned at Date Recorded Not on file documented as of this encounter Progress Notes * Saba Bull M.A. - 05/17/2017 8:54 AM ESTFrom: Kristen Bui To: Christopher Wong DO Sent: 05/16/2017 8:38 PM EST Subject: SI Injection Hi I need to schedule an appointment for another injection of the SI joint. documented in this encounter Plan of Treatment Not on file documented as of this encounter Visit Diagnoses Not on filedocumented in this encounter Care Teams Keyliner Relationship Specialty Start Date End Date Janessa Langley MD PCP - General Internal Medicine 12/02/15 11/03/19 Mark Caraballo MD PCP - General Family Practice 11/04/19 04/13/20 Janessa Langley MD PCP - General Internal Medicine 04/14/20 08/08/20 Layla Segal MD [address] [place] [address] PCP - General Internal Medicine 08/09/20 10/19/20 Amparo Pressley MD [address] [place] [address] PCP - General Internal Medicine 10/20/20 12/12/20 Layla Segal MD [address] [place] [address] PCP - General Internal Medicine 12/13/20 01/07/22 [facility], Pcp [address] [address] PCP - General Internal Medicine 01/08/22 Isela Roe MD 300 [facility] [address] [place] [address] Specialist Cardiology 10/28/20 documented as of this encounter
--- OUTSIDE RECORDS SUMMARY | 2024-05-04 16:56 | XMS_ITS | Encounter Summary ---
Author Organization [facility] Address [address] [place] [address] Care Team Providers Care Production Control Analyst Name Role Phone Janessa Langley MD Primary Care Provider UnavailMark Guadarrama MD Primary Care Provider Unav ailable Janessa Langley MD Primary Care Provider Unavaila Layla Juarez MD Primary Care Provider [phone] Amparo Pressley MD Primary Care Provider Un available Isela Roe MD Unavailable [phone] Layla Sgeal MD Primary Care Provider [phone] [facility] Primary Care Provider Unavailabl e Reason for Visit * Reason Comments E-prescribe Rx Request Encounter Details Date Type Department Care Team Description 09/18/2018 Refill Pulmonology - [place] [address] [facility] [address] [place] [address] Morales Richards MD [address] [place] [address] E-prescribe Rx Request Social History Tobacco Use Types Packs/Day Years Used Date Smoking Tobacco: Former Cigarettes 0.3 26 0 04/01/1989 - 05/02/2015 Smokeless Tobacco: Never Alcohol Use Standard Drinks/Week Comments No 0 (1 standard drink = 0.6 oz pur e alcohol) Sex Assigned at Date Recorded Not on file documented as of this encounter Miscellaneous Notes * Telephone Encounter - Uma Wheeler - 09/18/2018 11:59 AM EDT Patient would like script to be: E-PRESCRIBED/FAXED TO PHARMACY WHEN WAS THE PATIENT'S LAST APPOINTMENT WITH THE PRESCRIBING PROVIDER? 07/15/2018 Does patient have an upcoming appointment? (THE MEDICATION REQUESTED IS ON THE MED LIST ABOVE) All of the medications requested were on the CURRENT MEDS list Did you check the Pharmacy information above?: YES Patient wants: 30 -day supply Is this a mail order prescription request ? NO Patients current insurance carrier is: Payor: [employer] FFS / Plan: [employer] / Product Type: MEDICAID RISK documented in this encounter Plan of Treatment Not on file documented as of this encounter Visit Diagnoses Diagnosis Uncomplicated asthma, unspecified asthma severity, unspecified whether persistent documented in this encounter Care Teams Production Control Analyst Relationship Specialty Start Date End Date Janessa Langley MD PCP - General Internal Medicine 12/02/15 11/03/19 Mark Caraballo MD PCP - General Family Practice 11/04/19 04/13/20 Janessa Langley MD PCP - General Internal Medicine 04/14/20 08/08/20 Layla Segal MD [address] [place] [address] PCP - General Internal Medicine 08/09/20 10/19/20 Amparo Pressley MD [address] [place] [address] PCP - General Internal Medicine 10/20/20 12/12/20 Layla Segal MD [address] [place] [address] PCP - General Internal Medicine 12/13/20 01/07/22 [facility], Pcp 300 [facility] [address] [place] [address] PCP - General Internal Medicine 01/08/22 Isela Roe MD 300 [facility] [address] [place] [address] Specialist Cardiology 10/28/20 documented as of this encounter
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
--- OUTSIDE RECORDS SUMMARY | 2024-05-04 16:56 | XMS_ITS | Encounter Summary ---
Author Organization [facility] Address [address] [place] [address] Care Team Providers Care Hoist Operator Name Role Phone Isela Roe MD Unavailable [phone] Layla Segal MD Primary Care Provider [phone] [facility], Pcp Primary Care Provider Unavailabl e Encounter Details Date Type Department Care Team Description 07/15/2021 Walk In Clinic Visit Medical Records [address] [place] [address] Social History Tobacco Use Types Packs/Day Years Used Date Smoking Tobacco: Former Cigarettes 0.3 26 0 04/01/1989 - 05/02/2015 Smokeless Tobacco: Never Alcohol Use Standard Drinks/Week Comments No 0 (1 standard drink = 0.6 oz pur e alcohol) Sex Assigned at Date Recorded Not on file COVID-19 Exposure Response Date Recorded In the last 10 days, have yo u been in contact with someone who was confirmed or suspected to have Coronavirus/COVID-19? No / Unsure 06/19/2021 8:50 AM EDT documented as of this encounter Plan of Treatment Not on file documented as of this encounter Visit Diagnoses Not on filedocumented in this encounter Care Teams Hoist Operator Relationship Specialty Start Date End Date Layal Segal MD [address] [place] [phone] PCP - General Internal Medicine 12/13/20 01/07/22 [facility], Pcp [address] [place] [address] PCP - General Internal Medicine 01/08/22 Isela Roe MD 300 [facility] [address] [place] [address] Specialist Cardiology 10/28/20 documented as of this encounter
--- OUTSIDE RECORDS SUMMARY | 2024-05-04 16:56 | XMS_ITS | Encounter Summary ---
Author [facility] Address [address] [place] [address] Care Team Providers Care Interventional Radiologist Name Role Phone Janessa Langley MD Primary Care Provider Mark Thomas MD Primary Care Provider Unav ailable Janessa Langley MD Primary Care Provider Unavaila Layla Juarez MD Primary Care Provider [phone] Amparo Pressley MD Primary Care Provider Un available Isela Roe MD Unavailable [phone] Layla Segal MD Primary Care Provider [phone] [facility] Primary Care Provider Unavailabl e Encounter Details Date Type Department Care Team Description 01/15/2019 Release of Information Medical Records [address] [place] [address] Abstract, Provider Social History Tobacco Use Types [...] on filedocumented in this encounter Care Teams Interventional Radiologist Relationship Specialty Start Date End Date Janessa Langley MD PCP - General Internal Medicine 12/02/15 11/03/19 Mark Caraballo MD PCP - General Family Practice 11/04/19 04/13/20 Janessa Langley MD PCP - General Internal Medicine 04/14/20 08/08/20 Layla Segal MD [address] [place] [address] PCP - General Internal Medicine 08/09/20 10/19/20 Amparo Pressley MD [address] [place] [address] PCP - General Internal Medicine 10/20/20 12/12/20 Layla Segal MD [address] [place] [address] PCP - General Internal Medicine 12/13/20 01/07/22 [facility], Pcp [address] [address] PCP - General Internal Medicine 01/08/22 Isela Roe MD 300 [facility] [address] [place] [address] Specialist Cardiology 10/28/20 documented as of this encounter
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
--- OUTSIDE RECORDS SUMMARY | 2024-05-04 16:56 | XMS_ITS | Encounter Summary ---
Author Organization [facility] Address [address] [place] [address] Care Team Providers Care Merchandise Buyer Name Role Phone Mark Alfonso MD Primary Care Provider Unavail able Janessa Langley MD Primary Care Provider Unavaila Mark Valera MD Primary Care Provider Unavail able Janessa Langley MD Primary Care Provider Unavaila Mark Mayo MD Primary Care Provider Unav ailable Janessa Langley MD Primary Care Provider Unavaila Layla Juarez MD Primary Care Provider [phone] Amparo Pressley MD Primary Care Provider Un available Isela Roe MD Unavailable [phone] Layla Segal MD Primary Care Provider [phone] [facility], Pcp Primary Care Provider Unavailabl e Encounter Details Date Type Department Care Team Description 08/07/2012 Agricultural Loan Officer Report Medical Records [address] [place] [id number] [place] [address] Social History Tobacco Use Types Packs/Day Years [...] on filedocumented in this encounter Care Teams Merchandise Buyer Relationship Specialty Start Date End Date Mark [...] Medicine 04/14/20 08/08/20 Layla Segal MD [address] [place] [address] PCP - General Internal Medicine 08/09/20 10/19/20 Amparo Pressley MD [address] [place] [address] PCP - General Internal Medicine 10/20/20 12/12/20 Layla Segal MD [address] [place] [address] PCP - General Internal Medicine 12/13/20 01/07/22 [facility], Pcp [address] [address] PCP - General Internal Medicine 01/08/22 Isela Roe MD [address] [address] Specialist Cardiology 10/28/20 documented as of this encounter
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
--- OUTSIDE RECORDS SUMMARY | 2024-05-04 16:56 | XMS_ITS | Encounter Summary ---
Author Organization [facility] Address [address] [place] [address] Care Team Providers Care Sintering Plant Supervisor Name Role Phone Janessa Langley MD Primary Care Provider Mark Thomas MD Primary Care Provider Unav ailable Janessa Langley MD Primary Care Provider Unavaila Layla Juarez MD Primary Care Provider [phone] Amparo Pressley MD Primary Care Provider Un available Isela Roe MD Unavailable [phone] Layla Segal MD Primary Care Provider [phone] [facility] Primary Care Provider [facility] Encounter Details Date Type Department Care Team Description 01/12/2016 [facility] Medical Records [address] [place] [address] Abstract, Provider Social History Tobacco Use Types [...] on filedocumented in this encounter Care Teams Sintering Plant Supervisor Relationship Specialty Start Date End Date Janessa Langley MD PCP - General Internal Medicine 12/02/15 11/03/19 Mark Caraballo MD PCP - General Family Practice 11/04/19 04/13/20 Janessa Langley MD PCP - General Internal Medicine 04/14/20 08/08/20 Layla Segal MD [address] [place] [address] PCP - General Internal Medicine 08/09/20 10/19/20 Amparo Pressley MD [address] [place] [address] PCP - General Internal Medicine 10/20/20 12/12/20 Layla Segal MD [address] [place] [address] PCP - General Internal Medicine 12/13/20 01/07/22 [facility], Pcp 300 [facility] [address] [place] [address] PCP - General Internal Medicine 01/08/22 Isela Roe MD 300 [facility] [address] [place] [address] Specialist Cardiology 10/28/20 documented as of this encounter
--- OUTSIDE RECORDS SUMMARY | 2024-05-04 16:56 | XMS_ITS | Encounter Summary ---
Author Organization [facility] Address [address] [place] [address] Care Team Providers Care Bog Worker Name Role Phone Amparo Pressley MD Primary Care Provider Un available Mark Alfonso MD Primary Care Provider Unavail able Janessa Langley MD Primary Care Provider Unavaila Mark Valera MD Primary Care Provider Unavail able Janessa Langley MD Primary Care Provider Unavaila Mark Mayo MD Primary Care Provider Unav ailable Janessa Langley MD Primary Care Provider Unavaila Layla Juarez MD Primary Care Provider [phone] Amparo Pressley MD Primary Care Provider Un available Isela Roe MD Unavailable [phone] Layla Segal MD Primary Care Provider [phone] [facility], Pcp Primary Care Provider Unavailabl e Encounter Details Date Type Department Care Team Description 09/20/2010 Hospital Medical Records [address] [place] [address] Ilan Escobedo Social History Tobacco Use Types Packs/Day Years [...] on filedocumented in this encounter Care Teams Bog Worker Relationship Specialty Start Date End Date Amparo [...] Internal Medicine 04/14/20 08/08/20 Layla Segal MD [address] [place] [address] PCP - General Internal Medicine 08/09/20 10/19/20 Amparo Pressley MD PCP - General Internal Medicine 10/20/20 Layla Segal MD [address] [place] [address] PCP - General Internal Medicine 12/13/20 01/07/22 [facility], Pcp [address] [address] PCP - General Internal Medicine 01/08/22 Isela Roe MD [address] [address] Specialist Cardiology 10/28/20 documented as of this encounter
--- OUTSIDE RECORDS SUMMARY | 2024-05-04 16:56 | XMS_ITS | Encounter Summary ---
Author Organization [facility] Address [address] [place] [address] Care Team Providers Care Parachute Harness Rigger Name Role Phone Janessa Langley MD Primary Care Provider UnavailMark Guadarrama MD Primary Care Provider Unav ailable Janessa Langley MD Primary Care Provider Unavaila Layla Juarez MD Primary Care Provider [phone] Amparo Pressley MD Primary Care Provider Un available Isela Roe MD Unavailable [phone] Layla Segal MD Primary Care Provider [phone] [facility], [facility] Primary Care Provider Unavailabl e Encounter Details Date Type Department Care Team Description 01/01/2019 Telephone General Surgery - [address] [place] [address] Jeannette Elena MD [address] [place] [address] [address] [place] [address] Social History Tobacco Use Types Packs/Day Years Used Date Smoking Tobacco: Former Cigarettes 0.3 26 0 04/01/1989 - 05/02/2015 Smokeless Tobacco: Never Alcohol Use Standard Drinks/Week Comments No 0 (1 standard drink = 0.6 oz pur e alcohol) Sex Assigned at Date Recorded Not on file documented as of this encounter Miscellaneous Notes * Telephone Encounter - Radames Palomo - 01/01/2019 3:34 PM EDT Patient called in stating that she had to cancel her appointment today and reschedule for another day but wanted to update you on her weight loss progress. Please contact patient. documented in this encounter Plan of Treatment Not on file documented as of this encounter Visit Diagnoses Not on filedocumented in this encounter Care Teams Parachute Harness Rigger Relationship Specialty Start Date End Date Janessa Langley MD PCP - General Internal Medicine 12/02/15 11/03/19 Mark Caraballo MD PCP - General Family Practice 11/04/19 04/13/20 Janessa Langley MD PCP - General Internal Medicine 04/14/20 08/08/20 Layla Segal MD [address] [place] [address] PCP - General Internal Medicine 08/09/20 10/19/20 Amparo Pressley MD [address] [place] [address] PCP - General Internal Medicine 10/20/20 12/12/20 Layla Segal MD [address] [place] [address] PCP - General Internal Medicine 12/13/20 01/07/22 [facility], Pcp [address] [address] PCP - General Internal Medicine 01/08/22 Isela Roe MD [address] [address] Specialist Cardiology 10/28/20 documented as of this encounter
--- OUTSIDE RECORDS SUMMARY | 2024-05-04 16:56 | XMS_ITS | Encounter Summary ---
Author Organization [facility] Address [address] [place] [address] Care Team Providers Care Special Shopper Name Role Phone Janessa Langley MD Primary Care Provider UnavailMark Guadarrama MD Primary Care Provider Unav ailable Janessa Langley MD Primary Care Provider Unavaila Layla Juarez MD Primary Care Provider [phone] Amparo Pressley MD Primary Care Provider Un available Isela Roe MD Unavailable [phone] Layla Segal MD Primary Care Provider [phone] [facility], [facility] Primary Care Provider Unavailabl e Encounter Details Date Type Department Care Team Description 04/24/2017 Transfer Records Medical Records [address] [place] [address] Abstract, Provider Social History Tobacco Use Types Packs/Day Years Used Date Smoking Tobacco: Former Cigarettes 0.3 Q uit: 05/02/2015 Smokeless Tobacco: Never Alcohol Use Standard Drinks/Week Comments No 0 (1 standard drink = 0.6 oz pur e alcohol) Sex Assigned at Date Recorded Not on file documented as of this encounter Nursing Notes * Roz Pete - 04/24/2017 10:12 AM EST Transfer records received from [facility] sent to Linda Baker RN rail grinder. documented in this encounter Plan of Treatment Not on file documented as of this encounter Visit Diagnoses Not on filedocumented in this encounter Care Teams Special Shopper Relationship Specialty Start Date End Date Janessa Langley MD PCP - General Internal Medicine 12/02/15 11/03/19 Mark Caraballo MD PCP - General Family Practice 11/04/19 04/13/20 Janessa Langley MD PCP - General Internal Medicine 04/14/20 08/08/20 Layla Segal MD [address] [place] [address] PCP - General Internal Medicine 08/09/20 10/19/20 Amparo Pressley MD [address] [place] [address] PCP - General Internal Medicine 10/20/20 12/12/20 Layla Segal MD [address] [place] [address] PCP - General Internal Medicine 12/13/20 01/07/22 [facility], Pcp [address] [address] PCP - General Internal Medicine 01/08/22 Isela Roe MD 300 [facility] [address] [place] [address] Specialist Cardiology 10/28/20 documented as of this encounter
--- OUTSIDE RECORDS SUMMARY | 2024-05-04 16:56 | XMS_ITS | Encounter Summary ---
Author Organization [facility] Address [address] [place] [address] Care Team Providers Care Wire Drawer Name Role Phone Janessa Langley MD Primary Care Provider UnavailMark Guadarrama MD Primary Care Provider Unav ailable Janessa Langley MD Primary Care Provider Unavaila Layla Juarez MD Primary Care Provider [phone] Amparo Pressley MD Primary Care Provider Un available Isela Roe MD Unavailable [phone] Layla Segal MD Primary Care Provider [phone] [facility], [facility] Primary Care Provider Unavailabl e Reason for Referral * EXTERNAL (Routine) - Authorized/Booked Specialty Diagnoses / Procedures Referred By Contact Referred To Contact COMPREHENSIVE WEIGHT MANAGEMENT / WEIGHT MANAGEMENT Procedures REFERRAL TO WEIGHT MANAGEMENT CLINIC Janessa Langley MD [address] [place] [address] Alfredo Lilly MD, [address] [address] Referral ID Status Reason Start Date Expiration Date V isits Requested Visits Authorized SEE NOTE Authorized/B ooked 05/08/2017 08/07/2017 1 1 Reason for Visit * Reason Onset Date Comments Bread Pan Greaser Feedback 05/07/2017 weight managemen t Encounter Details Date Type Department Care Team Description 05/07/2017 Telephone Adult [address] [id number] Janessa Langley MD Bread Pan Greaser Feedback (weight management) Social History Tobacco Use Types Packs/Day Years Used Date Smoking Tobacco: Former Cigarettes 0.3 Q uit: 05/02/2015 Smokeless Tobacco: Never Alcohol Use Standard Drinks/Week Comments No 0 (1 standard drink = 0.6 oz pur e alcohol) Sex Assigned at Date Recorded Not on file documented as of this encounter Miscellaneous Notes * Telephone Encounter - Janessa Langley MD - 05/08/2017 10:37 AM EST Thanks signed * Telephone Encounter - Verona Toledo - 05/07/2017 5:11 PM EST Janessa Tian An order was placed for comprehensive weight management for Morbid Obesity to Dr. Janessa Meng. At this time he is not accepting any new patient and we have to redirect all patients to other providers. ?? I have pended a new order, please review and sign ?? Thank you, Verona Referrals Coordinator [facility] Referrals Department documented in this encounter Plan of Treatment Not on file documented as of this encounter Visit Diagnoses Not on filedocumented in this encounter Care Teams Wire Drawer Relationship Specialty Start Date End Date Janessa Langley MD PCP - General Internal Medicine 12/02/15 11/03/19 Mrak Caraballo MD PCP - General Family Practice 11/04/19 04/13/20 Janessa Langley MD PCP - General Internal Medicine 04/14/20 08/08/20 Layla Segal MD [address] [place] [address] PCP - General Internal Medicine 08/09/20 10/19/20 Amparo Pressley MD [address] [place] [address] PCP - General Internal Medicine 10/20/20 12/12/20 Layla Segal MD [address] [place] [address] PCP - General Internal Medicine 12/13/20 01/07/22 [facility], Pcp 300 [facility] [address] [place] [address] PCP - General Internal Medicine 01/08/22 Isela Roe MD 300 [facility] [address] [place] [address] Specialist Cardiology 10/28/20 documented as of this encounter
--- OUTSIDE RECORDS SUMMARY | 2024-05-04 16:56 | XMS_ITS | Encounter Summary ---
Author Organization [facility] Address [address] [place] [address] Care Team Providers Care Sales Commissions Analyst Name Role Phone Isela Roe MD Unavailable Layla Segal MD Primary Care Provider [phone] [facility], [facility] Primary Care Provider Unavailabl e Reason for Visit * Reason Comments E-prescribe Rx Request Encounter Details Date Type Department Care Team Description 07/31/2021 Refill Pulmonology - [place] 175 [facility] [address] [place] [address] Morales Richards MD [address] [place] [phone] E-prescribe Rx Request Social History Tobacco Use Types Packs/Day Years Used Date Smoking Tobacco: Former Cigarettes 0.3 26 0 04/01/1989 - 05/02/2015 Smokeless Tobacco: Never Alcohol Use Standard Drinks/Week Comments No 0 (1 standard drink = 0.6 oz pur e alcohol) Sex Assigned at Date Recorded Not on file documented as of this encounter Miscellaneous Notes * Telephone Encounter - Nadege Ringchris - 07/31/2021 9:18 AM EDT Patient would like script to be: E-PRESCRIBED/FAXED TO PHARMACY WHEN WAS THE PATIENT'S LAST APPOINTMENT IN ADULT MEDICINE? 12/23/2020 WHEN WAS THE LAST TIME THE PATIENT SAW THEIR PCP? Same as above Does patient have an upcoming appointment? Yes 09/01/2021 (THE MEDICATION REQUESTED IS ON THE MED [...] [employer] HMO F 1+/$0 / Product Type: [id number] documented in this encounter Plan of Treatment Not on file documented as of this encounter Visit Diagnoses Diagnosis Uncomplicated asthma, unspecified asthma severity, unspecified whether persistent documented in this encounter Care Teams Sales Commissions Analyst Relationship Specialty Start Date End Date Layla Segal MD [address] [place] [address] PCP - General Internal Medicine 12/13/20 01/07/22 [facility], [address] [address] PCP - General Internal Medicine 01/08/22 Isela Roe MD 300 [facility] [address] [place] [address] Specialist Cardiology 10/28/20 documented as of this encounter
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
--- OUTSIDE RECORDS SUMMARY | 2024-05-04 16:56 | XMS_ITS | Encounter Summary ---
Author Organization [facility] Address [address] [place] [address] Care Team Providers Care Fire Eater Name Role Phone Mark Alfonso MD Primary Care Provider Unavail able Janessa Langley MD Primary Care Provider Unavaila Mark Valera MD Primary Care Provider Unavail able Janessa Lanlgey MD Primary Care Provider Unavaila Mark Mayo MD Primary Care Provider Unav ailable Janessa Langley MD Primary Care Provider Unavaila Layla Juarez MD Primary Care Provider [phone] Amparo Pressley MD Primary Care Provider Un available Isela Roe MD Unavailable [phone] Layla Segal MD Primary Care Provider [phone] [facility], Pcp Primary Care Provider Unavailabl e Encounter Details Date Type Department Care Team Description 09/16/2013 Assistant City Attorney Report Medical Records [address] [place] [address] Viky Clifford Social History Tobacco Use Types Packs/Day Years [...] filedocumented in this encounter Care Teams Fire Eater Relationship Specialty Start Date End Date Mark [...] Internal Medicine 04/14/20 08/08/20 Layla Segal MD [address] [place] [address] PCP - General Internal Medicine 08/09/20 10/19/20 Amparo Pressley MD [address] [place] [address] PCP - General Internal Medicine 10/20/20 12/12/20 Layla Segal MD [address] [place] [address] PCP - General Internal Medicine 12/13/20 01/07/22 [facility], Pcp [address] [address] PCP - General Internal Medicine 01/08/22 Isela Roe MD [address] [address] Specialist Cardiology 10/28/20 documented as of this encounter
--- OUTSIDE RECORDS SUMMARY | 2024-05-04 16:56 | XMS_ITS | Encounter Summary ---
Author Organization [facility] Address [address] [place] [address] Care Team Providers Care Manager Civil Name Role Phone Isela Roe MD Unavailable [phone] Layla Segal MD Primary Care Provider [phone] [facility], Pcp Primary Care Provider Unavailabl e Encounter Details Date Type Department Care Team Description 08/27/2021 Scheduler Maintenance Report Medical Records [address] [place] [address] Marley Chau NP Social History Tobacco Use Types Packs/Day Years [...] filedocumented in this encounter Care Teams Manager Civil Relationship Specialty Start Date End Date Layla Segal MD [address] [place] [address] PCP - General Internal Medicine 12/13/20 01/07/22 [facility], Pcp [address] [place] [address] PCP - General Internal Medicine 01/08/22 Isela Roe MD [address] [facility] [address] [place] [address] Specialist Cardiology 10/28/20 documented as of this encounter
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
--- OUTSIDE RECORDS SUMMARY | 2024-05-04 16:56 | XMS_ITS | Encounter Summary ---
Author Organization [facility] Address [address] [place] [address] Care Team Providers Care Rn Assessment Name Role Phone Janessa Langley MD Primary Care Provider UnavailMark Guadarrama MD Primary Care Provider Unav ailable Janessa Langley MD Primary Care Provider Unavaila Layla Juarez MD Primary Care Provider [phone] Amparo Pressley MD Primary Care Provider Un available Isela Roe MD Unavailable [phone] Layla Segal MD Primary Care Provider [phone] [facility], [facility] Primary Care Provider Unavailabl e Encounter Details Date Type Department Care Team Description 12/06/2018 SCAN Medical Records [address] [place] [address] Hernan Flores Social History Tobacco Use Types Packs/Day Years [...] Name Priority Date/Time Associated Diagnosis Comments OUTSIDE CT Routine 12/06/[address] Routine 12/06/2018 documented in this encounter Results * OUTSIDE CT (12/06/2018) Provider Abstract RADIOLOGY * OUTSIDE CT (12/06/2018) Provider Abstract RADIOLOGY documented in this encounter Visit Diagnoses Not on filedocumented in this encounter Care Teams Rn Assessment Relationship Specialty Start Date End Date Janessa Langley MD PCP - General Internal Medicine 12/02/15 11/03/19 Mark Caraballo MD PCP - General Family Practice 11/04/19 04/13/20 Janessa Langley MD PCP - General Internal Medicine 04/14/20 08/08/20 Layla Segal MD [address] [place] [address] PCP - General Internal Medicine 08/09/20 10/19/20 Amparo Pressley MD [address] [place] [address] PCP - General Internal Medicine 10/20/20 12/12/20 Layla Segal MD [address] [place] [address] PCP - General Internal Medicine 12/13/20 01/07/22 [facility], Pcp [address] [address] PCP - General Internal Medicine 01/08/22 Isela Roe MD [address] [address] Specialist Cardiology 10/28/20 documented as of this encounter
--- OUTSIDE RECORDS SUMMARY | 2024-05-04 16:56 | XMS_ITS | Encounter Summary ---
Author Organization [facility] Address [address] [place] [address] Care Team Providers Care Macroeconomics Professor Name Role Phone Isela Roe MD Unavailable [phone] [facility], Pcp Primary Care Provider Unavailabl e Reason for Visit * Reason Onset Date Comments Faxed Order 01/08/2022 Order #[id number] Encounter Details Date Type Department Care Team Description 01/08/2022 Telephone Adult Medicine [address] [id number] Layla Segal MD [address] [place] [address] [phone] Faxed Order (Order #[id number]) Social History Tobacco Use Types Packs/Day Years Used Date Smoking Tobacco: Former Cigarettes 0.3 26 0 04/01/1989 - 05/02/2015 Smokeless Tobacco: Never Alcohol Use Standard Drinks/Week Comments No 0 (1 standard drink = 0.6 oz pur e alcohol) Sex Assigned at Date Recorded Not on file documented as of this encounter Miscellaneous Notes * Telephone Encounter - Jairo Hawley L.P.NLilliana - 01/17/2022 1:49 PM EDT Telephone Information: Work Phone Not on file. Called patient she is no longer with Dr. Segal Spoke with [facility] Her orders are coming from a new PCP * Telephone Encounter - aCssy Espinozamariah - 01/08/2022 8:10 AM EDT Faxed order from [facility], Order #[id number]. Please sign, date, and fax back. documented in this encounter Plan of Treatment Not on file documented as of this encounter Visit Diagnoses Not on filedocumented in this encounter Care Teams Macroeconomics Professor Relationship Specialty Start Date End Date Community, Pcp 300 [facility] [address] [place] [address] PCP - General Internal Medicine 01/08/22 Isela Roe MD 300 [facility] [address] [place] [address] Specialist Cardiology 10/28/20 documented as of this encounter
--- OUTSIDE RECORDS SUMMARY | 2024-05-04 16:56 | XMS_ITS | Encounter Summary ---
Author Organization [facility] Address [address] [place] [address] Care Team Providers Care Sand Bobber Name Role Phone Isela Roe MD Unavailable [phone] Layla Segal MD Primary Care Provider [facility], Pcp Primary Care Provider Unavailabl e Encounter Details Date Type Department Care Team Description 08/08/2021 Industrial Relations Worker Report Medical Records [address] [place] [address] Social History Tobacco Use Types Packs/Day Years [...] on filedocumented in this encounter Care Teams Sand Bobber Relationship Specialty Start Date End Date Layla Segal MD [address] [place] [address] PCP - General Internal Medicine 12/13/20 01/07/22 [facility], Pcp [address] [place] [address] PCP - General Internal Medicine 01/08/22 Isela Roe MD [address] [place] [address] Specialist Cardiology 10/28/20 documented as of this encounter
--- OUTSIDE RECORDS SUMMARY | 2024-05-04 16:56 | XMS_ITS | Encounter Summary ---
Author Organization [facility] Address [address] [place] [address] Care Team Providers Care Hand Expansion Envelope Maker Name Role Phone Janessa Langley MD Primary Care Provider Mark Thomas MD Primary Care Provider Unav ailable Janessa Langley MD Primary Care Provider Unavaila Layla Juarez MD Primary Care Provider [phone] Amparo Pressley MD Primary Care Provider Un available Isela Roe MD Unavailable [phone] Layla Segal MD Primary Care Provider [phone] [facility] Primary Care Provider Unavailabl e Encounter Details Date Type Department Care Team Description 04/25/2017 Senior Scientist Report Medical Records [address] [place] [address] Chris Tavares Social History Tobacco Use Types Packs/Day Years [...] on filedocumented in this encounter Care Teams Hand Expansion Envelope Maker Relationship Specialty Start Date End Date Janessa Langley MD PCP - General Internal Medicine 12/02/15 11/03/19 Mark Caraballo MD PCP - General Family Practice 11/04/19 04/13/20 Janessa Langley MD PCP - General Internal Medicine 04/14/20 08/08/20 Layla Segal MD [address] [place] [address] PCP - General Internal Medicine 08/09/20 10/19/20 Amparo Pressley MD [address] [place] [address] PCP - General Internal Medicine 10/20/20 12/12/20 Layla Segal MD [address] [place] [address] PCP - General Internal Medicine 12/13/20 01/07/22 [facility], Pcp [address] [address] PCP - General Internal Medicine 01/08/22 Isela Roe MD 300 [facility] [address] [place] [address] Specialist Cardiology 10/28/20 documented as of this encounter
--- OUTSIDE RECORDS SUMMARY | 2024-05-04 16:56 | XMS_ITS | Encounter Summary ---
Author Organization [facility] Address [address] [place] [address] Care Team Providers Care Tube Buffer Name Role Phone Amparo Pressley MD Primary Care Provider Un available Mark Alfonso MD Primary Care Provider Unavail able Janessa Langley MD Primary Care Provider Unavaila Mark Valera MD Primary Care Provider Unavail able Janessa Langley MD Primary Care Provider Unavaila Mark Mayo MD Primary Care Provider Unav ailable Janessa Langley MD Primary Care Provider Unavaila Layla Juarez MD Primary Care Provider [phone] Amparo Pressley MD Primary Care Provider Un available Isela Roe MD Unavailable [phone] Layla Segal MD Primary Care Provider [phone] [facility], Pcp Primary Care Provider Unavailabl e Encounter Details Date Type Department Care Team Description 02/13/2008 [facility] Medical Records [address] [place] [address] Regan Brown V. Social History Tobacco Use Types Packs/Day Years [...] on filedocumented in this encounter Care Teams Tube Buffer Relationship Specialty Start Date End Date Amparo [...] Medicine 04/14/20 08/08/20 Layla Segal MD [address] [place] [address] PCP - General Internal Medicine 08/09/20 10/19/20 Amparo Pressley MD PCP - General Internal Medicine 10/20/20 Layla Segal MD [address] [place] [address] PCP - General Internal Medicine 12/13/20 01/07/22 [facility], Pcp [address] [address] PCP - General Internal Medicine 01/08/22 Isela Roe MD 300 [facility] [address] [place] [address] Specialist Cardiology 10/28/20 documented as of this encounter
--- OUTSIDE RECORDS SUMMARY | 2024-05-04 16:56 | XMS_ITS | Encounter Summary ---
Author Organization [facility] Address [address] [place] [address] Care Team Providers Care Motion Picture Equipment Supervisor Name Role Phone Isela Roe MD Unavailable [phone] Layla Segal MD Primary Care Provider [phone] [facility], Pcp Primary Care Provider Unavailabl e Encounter Details Date Type Department Care Team Description 06/21/2021 Refill Pulmonology - [place] [address] [facility] [address] [place] [address] Morales Richards MD [address] [place] [address] Social History Tobacco Use Types [...] complicated documented in this encounter Care Teams Motion Picture Equipment Supervisor Relationship Specialty Start Date End Date Layla Segal MD [address] [place] [address] [place] [address] PCP - General Internal Medicine 12/13/20 01/07/22 [facility], Pcp [address] [place] [address] PCP - General Internal Medicine 01/08/22 Isela Roe MD [address] [address] Specialist Cardiology 10/28/20 documented as of this encounter
--- OUTSIDE RECORDS SUMMARY | 2024-05-04 16:56 | XMS_ITS | Encounter Summary ---
Author Organization [facility] Address [address] [place] [address] Care Team Providers Care Portable Pinch Riveter Name Role Phone Amparo Pressley MD Primary Care Provider Un available Mark Alfonso MD Primary Care Provider Unavail able Janessa Langley MD Primary Care Provider Unavaila Mark Valera MD Primary Care Provider Unavail able Janessa Langley MD Primary Care Provider Unavaila Mark Mayo MD Primary Care Provider Unav ailable Janessa Langley MD Primary Care Provider Unavaila Layla Juarez MD Primary Care Provider [phone] Amparo Pressley MD Primary Care Provider Un available Isela Roe MD Unavailable [phone] Layla Segal MD Primary Care Provider [phone] [facility], Pcp Primary Care Provider Unavailabl e Encounter Details Date Type Department Care Team Description 04/26/2012 Talent Acquisition Partner Report Medical Records [address] [place], [place] [id number] [place] [address] Social History Tobacco Use Types Packs/Day Years [...] on filedocumented in this encounter Care Teams Portable Pinch Riveter Relationship Specialty Start Date End Date Amparo [...] Internal Medicine 04/14/20 08/08/20 Layla Segal MD [address] [place] [address] PCP - General Internal Medicine 08/09/20 10/19/20 Amparo Pressley MD PCP - General Internal Medicine 10/20/20 Layla Segal MD [address] [place] [address] PCP - General Internal Medicine 12/13/20 01/07/22 [facility], Pcp [address] [address] PCP - General Internal Medicine 01/08/22 Isela Roe MD [address] [address] Specialist Cardiology 10/28/20 documented as of this encounter
--- OUTSIDE RECORDS SUMMARY | 2024-05-04 16:56 | XMS_ITS | Encounter Summary ---
Author Organization [facility] Address [address] [place] [address] Care Team Providers Care Briquette Operator Name Role Phone Mark Alfonso MD Primary Care Provider Unavail able Janessa Langley MD Primary Care Provider Unavaila Mark Valera MD Primary Care Provider Unavail able Janessa Langley MD Primary Care Provider Unavaila Mark Mayo MD Primary Care Provider Unav ailable Janessa Langley MD Primary Care Provider Unavaila Layla Juarez MD Primary Care Provider [phone] Amparo Pressley MD Primary Care Provider Un available Isela Roe MD Unavailable [phone] Layla Segal MD Primary Care Provider [phone] [facility], Pcp Primary Care Provider Unavailabl e Encounter Details Date Type Department Care Team Description 06/09/2012 Voice Network Engineer Report Medical Records [address] [place] [address] Chris Gerber MD Social History Tobacco Use Types Packs/Day [...] on filedocumented in this encounter Care Teams Briquette Operator Relationship Specialty Start Date End Date Mark [...] Internal Medicine 04/14/20 08/08/20 Layla Segal MD [address] [place] [address] PCP - General Internal Medicine 08/09/20 10/19/20 Amparo Pressley MD [address] [place] [address] PCP - General Internal Medicine 10/20/20 12/12/20 Layla Segal MD [address] [place] [address] PCP - General Internal Medicine 12/13/20 01/07/22 [facility], Pcp [address] [address] PCP - General Internal Medicine 01/08/22 Isela Roe MD [address] [address] Specialist Cardiology 10/28/20 documented as of this encounter
--- OUTSIDE RECORDS SUMMARY | 2024-05-04 16:56 | XMS_ITS | Encounter Summary ---
Author Organization [facility] Address [address] [place] [address] Care Team Providers Care Hydro Plant Technician Name Role Phone Janessa Langley MD Primary Care Provider UnavailMark Guadarrama MD Primary Care Provider Unav ailable Janessa Langley MD Primary Care Provider Unavaila Layla Juarez MD Primary Care Provider [phone] Amparo Pressley MD Primary Care Provider Un available Isela Roe MD Unavailable [phone] Layla Segal MD Primary Care Provider [phone] [facility], [facility] Primary Care Provider Unavailabl e Encounter Details Date Type Department Care Team Description 07/16/2018 Telephone Pulmonology - [place] [address] [facility] [address] [place] [address] Morales Richards MD [address] [place] [id number] Social History Tobacco Use Types Packs/Day Years Used Date Smoking Tobacco: Former Cigarettes 0.3 26 0 04/01/1989 - 05/02/2015 Smokeless Tobacco: Never Alcohol Use Standard Drinks/Week Comments No 0 (1 standard drink = 0.6 oz pur e alcohol) Sex Assigned at Date Recorded Not on file documented as of this encounter Miscellaneous Notes * Telephone Encounter - Roz Flores M.A. - 07/16/2018 3:12 PM EDT [facility], requested an alternative for Advair 115-21 mcg inhaler or needed a PA. documented in this encounter Plan of Treatment Not on file documented as of this encounter Visit Diagnoses Diagnosis Pulmonary emphysema, unspecified emphysema type (HCC)- Primary documented in this encounter Care Teams Hydro Plant Technician Relationship Specialty Start Date End Date Janessa Langley MD PCP - General Internal Medicine 12/02/15 11/03/19 Mark Caraballo MD PCP - General Family Practice 11/04/19 04/13/20 Janessa Langley MD PCP - General Internal Medicine 04/14/20 08/08/20 Layla Segal MD [address] [place] [address] PCP - General Internal Medicine 08/09/20 10/19/20 Amparo Pressley MD [address] [place] [address] PCP - General Internal Medicine 10/20/20 12/12/20 Layla Segal MD [address] [place] [address] PCP - General Internal Medicine 12/13/20 01/07/22 [facility], Pcp [address] [address] PCP - General Internal Medicine 01/08/22 Isela Roe MD [address] [address] Specialist Cardiology 10/28/20 documented as of this encounter
--- OUTSIDE RECORDS SUMMARY | 2024-05-04 16:56 | XMS_ITS | Encounter Summary ---
Author Organization [facility] Address [address] [place] [address] Care Team Providers Care Lithograph Operator Name Role Phone Amparo Pressley MD Primary Care Provider Un available Mark Alfonso MD Primary Care Provider Unavail able Janessa Langley MD Primary Care Provider Unavaila Mark Valera MD Primary Care Provider Unavail able Janessa Langley MD Primary Care Provider Unavaila Mark Mayo MD Primary Care Provider Unav ailable Janessa Langley MD Primary Care Provider Unavaila Layla Juarez MD Primary Care Provider [phone] Amparo Pressley MD Primary Care Provider Un available Isela Roe MD Unavailable [phone] Layla Segal MD Primary Care Provider [phone] [facility], Pcp Primary Care Provider Unavailabl e Encounter Details Date Type Department Care Team Description 02/14/2008 [facility] Medical Records [address] [place] [address] Sybil Matthew Social History Tobacco Use Types Packs/Day Years [...] on filedocumented in this encounter Care Teams Lithograph Operator Relationship Specialty Start Date End Date Amparo [...] Internal Medicine 04/14/20 08/08/20 Layla Segal MD [address] [place] [address] PCP - General Internal Medicine 08/09/20 10/19/20 Amparo Pressley MD PCP - General Internal Medicine 10/20/20 Layla Segal MD [address] [place] [address] PCP - General Internal Medicine 12/13/20 01/07/22 [facility], Pcp [address] [address] PCP - General Internal Medicine 01/08/22 Isela Roe MD [address] [address] Specialist Cardiology 10/28/20 documented as of this encounter
--- OUTSIDE RECORDS SUMMARY | 2024-05-04 16:56 | XMS_ITS | Encounter Summary ---
Author Organization [facility] Address [address] [place] [address] Care Team Providers Care Customer Support Associate Name Role Phone Janessa Langley MD Primary Care Provider Mark Thomas MD Primary Care Provider Unav ailable Janessa Langley MD Primary Care Provider Unavaila Layla Juarez MD Primary Care Provider [phone] Amparo Pressley MD Primary Care Provider Un available Isela Roe MD Unavailable [phone] Layla Segal MD Primary Care Provider [phone] [facility], [facility] Primary Care Provider Unavailabl e Encounter Details Date Type Department Care Team Description 12/06/2015 Pt. Non Urgent Medical Question Medicine/Pediatrics - [address] [address] Janessa Langley MD Social History Tobacco Use Types Packs/Day Years Used Date Smoking Tobacco: Former Cigarettes 0.3 Q uit: 05/02/2015 Smokeless Tobacco: Never Alcohol Use Standard Drinks/Week Comments No 0 (1 standard drink = 0.6 oz pur e alcohol) Sex Assigned at Date Recorded Not on file documented as of this encounter Progress Notes * Roxanne Kidd L.P.N. - 12/07/2015 9:12 AM EDTFrom: Kristen Bui To: Janessa Tian MD Sent: 12/06/2015 8:34 PM EDT Subject: Question about Drug -Urine Screen Hi i got a letter on here from office stating that I was due for a urine screening for my controled susbtance contract. Now that I am under contract with you as my provider when or do youwant me to come in for a screening? Kristen Bui documented in this encounter Plan of Treatment Not on file documented as of this encounter Visit Diagnoses Not on filedocumented in this encounter Care Teams Customer Support Associate Relationship Specialty Start Date End Date Janessa Langley MD PCP - General Internal Medicine 12/02/15 11/03/19 Mark Caraballo MD PCP - General Family Practice 11/04/19 04/13/20 Janessa Langley MD PCP - General Internal Medicine 04/14/20 08/08/20 Layla Segal MD [address] [place] [address] PCP - General Internal Medicine 08/09/20 10/19/20 Amparo Pressley MD [address] [place] [address] PCP - General Internal Medicine 10/20/20 12/12/20 Layla Segal MD [address] [place] [address] PCP - General Internal Medicine 12/13/20 01/07/22 [facility], [facility] [address] [address] PCP - General Internal Medicine 01/08/22 Isela Roe MD [address] [address] Specialist Cardiology 10/28/20 documented as of this encounter
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
--- OUTSIDE RECORDS SUMMARY | 2024-05-04 16:57 | XMS_ITS | Encounter Summary ---
Author Organization [facility] Address [address] [place] [address] Care Team Providers Care Lime Filter Operator Name Role Phone Janessa Langley MD Primary Care Provider Mark Thomas MD Primary Care Provider Unav ailable Janessa Langley MD Primary Care Provider Unavaila Layla Juarez MD Primary Care Provider [phone] Amparo Pressley MD Primary Care Provider Un available Isela Roe MD Unavailable [phone] Layla Segal MD Primary Care Provider [phone] [facility] Primary Care Provider Unavailabl e Encounter Details Date Type Department Care Team Description 03/23/2016 Business Development Sales Executive Report Medical Records [address] [place] [address] Abstract, Provider Social History Tobacco Use Types [...] on filedocumented in this encounter Care Teams Lime Filter Operator Relationship Specialty Start Date End Date Janessa Langley MD PCP - General Internal Medicine 12/02/15 11/03/19 Mark Caraballo MD PCP - General Family Practice 11/04/19 04/13/20 Janessa Langley MD PCP - General Internal Medicine 04/14/20 08/08/20 Layla Segal MD [address] [place] [address] PCP - General Internal Medicine 08/09/20 10/19/20 Amparo Pressley MD [address] [place] [address] PCP - General Internal Medicine 10/20/20 12/12/20 Layla Segal MD [address] [place] [address] PCP - General Internal Medicine 12/13/20 01/07/22 [facility], Pcp 300 [facility] [address] [place] [address] PCP - General Internal Medicine 01/08/22 Isela Roe MD 300 [facility] [address] [place] [address] Specialist Cardiology 10/28/20 documented as of this encounter
--- OUTSIDE RECORDS SUMMARY | 2024-05-04 16:57 | XMS_ITS | Encounter Summary ---
Author Organization [facility] Address [address] [place] [address] Care Team Providers Care Global Marketing Specialist Name Role Phone Mark Alfonso MD Primary Care Provider Unavail able Janessa Langley MD Primary Care Provider Unavaila Mark Valera MD Primary Care Provider Unavail able Janessa Langley MD Primary Care Provider Unavaila Mark Mayo MD Primary Care Provider Unav ailable Janessa Lanlgey MD Primary Care Provider Unavaila Layla Juarez MD Primary Care Provider [phone] Amparo Pressley MD Primary Care Provider Un available Isela Roe MD Unavailable [phone] Layla Segal MD Primary Care Provider [phone] [facility], Pcp Primary Care Provider Unavailabl e Reason for Visit * Reason Onset Date Comments Infiltrates 05/12/2015 Encounter Details Date Type Department Care Team Description 05/12/2015 Telephone Adult Medicine [address] [address] Mark Alfonso MD Infiltrates Social History Tobacco Use Types Packs/Day Years Used Date Smoking Tobacco: Former Cigarettes 0.3 Q uit: 03/01/2011 Smokeless Tobacco: Never Alcohol Use Standard Drinks/Week Comments No 0 (1 standard drink = 0.6 oz pur e alcohol) Sex Assigned at Date Recorded Not on file documented as of this encounter Miscellaneous Notes * Telephone Encounter - Rula Wood R.N. - 05/12/2015 6:09 PM EST noted * Telephone Encounter - Mark Alfonso MD - 05/12/2015 5:34 PM EST The patient was noted to have possible developing infiltrate on the chest x-ray. Se has cough and pleuritic chest discomfort. I directed her back to urgent care at [place]. Please followup. * Telephone Encounter - Rula Wood R.N. - 05/12/2015 3:59 PM EST call placed to patient @[phone] (home) [phone] (work) she is requesting a call from Dr Alfonso she was seen 05/10/15 at [place] urgent care for pneumonia she was put on antibiotics she took the last antibiotic today she continues to c/o pain in upper chest below collarbone on R side her cough is productive with thick brown sputum denies fever denies sob i requested paperwork from [place] urgent care * Telephone Encounter - Karon Miller - 05/12/2015 3:39 PM EST Patient is calling, would like a call back today. Please call her at [phone]. She is still in pain. * Telephone Encounter - Erin Kraft - 05/12/2015 9:08 AM EST Symptoms patient is presenting: Patient finished her antiobiotics for pnuemonia this morning, she said she is still having pain If pain or injury related was it due to an accident at work or from a motor vehicle accident? NO If yes, gather 3rd constitution party insurance information Date of accident/Injury: How long has patient had these symptoms?: Last PCP: Mark Alfonso Payor: [employer] FFS / Plan: FFS HMO $0 [place] [id number] / Product Type: MEDICAID RISK documented in this encounter Plan of Treatment Not on file documented as of this encounter Visit Diagnoses Not on filedocumented in this encounter Care Teams Global Marketing Specialist Relationship Specialty Start Date End Date [...] Medicine 04/14/20 08/08/20 Layla Segal MD [address] [place] [address] PCP - General Internal Medicine 08/09/20 10/19/20 Amparo Pressley MD [address] [place] [address] PCP - General Internal Medicine 10/20/20 12/12/20 Layla Segal MD [address] [place] [address] PCP - General Internal Medicine 12/13/20 01/07/22 Jared, Ronit [address] [address] PCP - General Internal Medicine 01/08/22 Isela Roe MD [address] [address] Specialist Cardiology 10/28/20 documented as of this encounter
--- OUTSIDE RECORDS SUMMARY | 2024-05-04 16:57 | XMS_ITS | Encounter Summary ---
Author Organization [facility] Address [address] [place] [address] Care Team Providers Care Belt Repairer Name Role Phone Janessa Langley MD Primary Care Provider UnavailMark Guadarrama MD Primary Care Provider Unav ailable Janessa Langley MD Primary Care Provider Unavaila Layla Juarez MD Primary Care Provider [phone] Amparo Pressley MD Primary Care Provider Un available Isela Roe MD Unavailable [phone] Layla Segal MD Primary Care Provider [phone] [facility] Primary Care Provider Unavailabl e Encounter Details Date Type Department Care Team Description 05/25/2016 Orders Only Medical Records [address] [place] [address] Boubacar Browning MD [address] [place] [id number] Social History Tobacco Use Types Packs/Day [...] Date/Time Associated Diagnosis Comments OUTSIDE CT Routine 05/24/2016 documented in this encounter Results * OUTSIDE CT (05/24/2016) Narrative Authorizing Provider Result Isaiah Browning MD RADIOLOGY documented in this encounter Visit Diagnoses Not on filedocumented in this encounter Care Teams Belt Repairer Relationship Specialty Start Date End Date Janessa Langley MD PCP - General Internal Medicine 12/02/15 11/03/19 Mark Caraballo MD PCP - General Family Practice 11/04/19 04/13/20 Janessa Langley MD PCP - General Internal Medicine 04/14/20 08/08/20 Layla Segal MD [address] [place] [address] PCP - General Internal Medicine 08/09/20 10/19/20 Amparo Pressley MD [address] [place] [address] PCP - General Internal Medicine 10/20/20 12/12/20 Layla Segal MD [address] [place] [address] PCP - General Internal Medicine 12/13/20 01/07/22 [facility], Pcp [address] [address] PCP - General Internal Medicine 01/08/22 Isela Roe MD [address] [address] Specialist Cardiology 10/28/20 documented as of this encounter
--- OUTSIDE RECORDS SUMMARY | 2024-05-04 16:57 | XMS_ITS | Encounter Summary ---
Author Organization [facility] Address [address] [place] [address] Care Team Providers Care Content Production Specialist Name Role Phone Janessa Langley MD Primary Care Provider UnavailMark Guadarrama MD Primary Care Provider Unav ailable Janessa Langley MD Primary Care Provider Unavaila Layla Juarez MD Primary Care Provider [phone] Amparo Pressley MD Primary Care Provider Un available Isela Roe MD Unavailable [phone] Layla Segal MD Primary Care Provider [phone] [facility] Primary Care Provider Unavailabl e Encounter Details Date Type Department Care Team Description 10/08/2018 Refill Pulmonology - [place] [address] [facility] [address] [place] [address] Elliot Garner MD [address] [place] [id number] Social History Tobacco Use Types Packs/Day Years Used Date Smoking Tobacco: Former Cigarettes 0.3 26 0 04/01/1989 - 05/02/2015 Smokeless Tobacco: Never Alcohol Use Standard Drinks/Week Comments No 0 (1 standard drink = 0.6 oz pur e alcohol) Sex Assigned at Date Recorded Not on file documented as of this encounter Miscellaneous Notes * Telephone Encounter - Roz Flores M.A. - 10/09/2018 3:05 PM EDTFrom: Kristen Bui To: Elliot Garner MD Sent: 10/08/2018 4:33 PM EDT Subject: Medication Renewal Request Original authorizing provider: ELLIOT GARNER MD, MD Kristen Bui would like a refill of the following medications: ALBUTEROL SULFATE (PROAIR HFA) 108 (90 BASE) MCG/ACT Aero Soln [ELLIOT GARNER MD, ] Preferred pharmacy: [facility] [address] [place] [address] Comment: documented in this encounter Plan of Treatment Not on file documented as of this encounter Visit Diagnoses Diagnosis Uncomplicated asthma, unspecified asthma severity, unspecified whether persistent documented in this encounter Care Teams Content Production Specialist Relationship Specialty Start Date End Date Janessa Langley MD PCP - General Internal Medicine 12/02/15 11/03/19 Mark Caraballo MD PCP - General Family Practice 11/04/19 04/13/20 Janessa Langley MD PCP - General Internal Medicine 04/14/20 08/08/20 Layla Segal MD [address] [place] [address] PCP - General Internal Medicine 08/09/20 10/19/20 Amparo Pressley MD [address] [place] [address] PCP - General Internal Medicine 10/20/20 12/12/20 Layla Segal MD [address] [place] [address] PCP - General Internal Medicine 12/13/20 01/07/22 [facility], Pcp [address] [address] PCP - General Internal Medicine 01/08/22 Isela Roe MD [address] [address] Specialist Cardiology 10/28/20 documented as of this encounter
--- OUTSIDE RECORDS SUMMARY | 2024-05-04 16:57 | XMS_ITS | Encounter Summary ---
Author Organization [facility] Address [address] [place] [address] Care Team Providers Care Vp Director Of Creative Strategy Name Role Phone Mark Alfonso MD Primary Care Provider Unavail able Janessa Langley MD Primary Care Provider Unavaila Mark Valera MD Primary Care Provider Unavail able Janessa Langley MD Primary Care Provider Unavaila Mark Mayo MD Primary Care Provider Unav ailable Janessa Langley MD Primary Care Provider Unavaila Layla Juarez MD Primary Care Provider [phone] Amparo Pressley MD Primary Care Provider Un available Isela Reo MD Unavailable [phone] Layla Segal MD Primary Care Provider [phone] [facility], Pcp Primary Care Provider Unavailabl e Encounter Details Date Type Department Care Team Description 03/10/2014 Director Shopper Marketing Report Medical Records [address] [place] [address] Maritza Lemus Social History Tobacco Use Types Packs/Day Years [...] on filedocumented in this encounter Care Teams Vp Director Of Creative Strategy Relationship Specialty Start Date End Date Mark [...] Internal Medicine 04/14/20 08/08/20 Layla Segal MD [address] [place] [address] PCP - General Internal Medicine 08/09/20 10/19/20 Amparo Pressley MD [address] [place] [address] PCP - General Internal Medicine 10/20/20 12/12/20 Layla Segal MD [address] [place] [address] PCP - General Internal Medicine 12/13/20 01/07/22 [facility], Pcp [address] [address] PCP - General Internal Medicine 01/08/22 Isela Roe MD [address] [address] Specialist Cardiology 10/28/20 documented as of this encounter
--- OUTSIDE RECORDS SUMMARY | 2024-05-04 16:57 | XMS_ITS | Encounter Summary ---
Author Organization [facility] Address [address] [place] [address] Care Team Providers Care Underground Distribution Engineer Name Role Phone Janessa Langley MD Primary Care Provider Mark Thomas MD Primary Care Provider Unav ailable Janessa Langley MD Primary Care Provider Unavaila Layla Juarez MD Primary Care Provider [phone] Amparo Pressley MD Primary Care Provider Un available Isela Roe MD Unavailable [phone] Layla Segal MD Primary Care Provider [phone] [facility] Primary Care Provider Unavailabl e Encounter Details Date Type Department Care Team Description 05/31/2017 Release of Information Medical Records [address] [place] [address] Abstract, Provider Social History Tobacco Use Types [...] on filedocumented in this encounter Care Teams Underground Distribution Engineer Relationship Specialty Start Date End Date Janessa Langley MD PCP - General Internal Medicine 12/02/15 11/03/19 Mark Caraballo MD PCP - General Family Practice 11/04/19 04/13/20 Janessa Langley MD PCP - General Internal Medicine 04/14/20 08/08/20 Layla Segal MD [address] [place] [address] PCP - General Internal Medicine 08/09/20 10/19/20 Amparo Pressley MD [address] [place] [address] PCP - General Internal Medicine 10/20/20 12/12/20 Layla Segal MD [address] [place] [address] PCP - General Internal Medicine 12/13/20 01/07/22 [facility], Pcp 300 [facility] [address] [place] [address] PCP - General Internal Medicine 01/08/22 Isela Roe MD 300 [facility] [address] [place] [address] Specialist Cardiology 10/28/20 documented as of this encounter
--- OUTSIDE RECORDS SUMMARY | 2024-05-04 16:57 | XMS_ITS | Encounter Summary ---
Author Organization [facility] Address [address] [place] [address] Care Team Providers Care Senior Wind Turbine Technician Name Role Phone Janessa Langley MD Primary Care Provider UnavailMark Guadarrama MD Primary Care Provider Unav ailable Janessa Langley MD Primary Care Provider Unavaila Layla Juarez MD Primary Care Provider [phone] Amparo Pressley MD Primary Care Provider Un available Isela Roe MD Unavailable [phone] Layla Segal MD Primary Care Provider [phone] [facility] Primary Care Provider Unavailabl e Reason for Visit * Reason Onset Date Comments diabetes 02/24/2019 Encounter Details Date Type Department Care Team Description 02/24/2019 Telephone General Surgery - [place] 175 [facility] [address] [place] [address] Jessie Nicholas MS,RDN,LDN 175 [facility] [address] [place] [address] diabetes Social History Tobacco Use Types Packs/Day Years Used Date Smoking Tobacco: Former Cigarettes 0.3 26 0 04/01/1989 - 05/02/2015 Smokeless Tobacco: Never Alcohol Use Standard Drinks/Week Comments No 0 (1 standard drink = 0.6 oz pur e alcohol) Sex Assigned at Date Recorded Not on file documented as of this encounter Miscellaneous Notes * Telephone Encounter - Jessie Nicholas MS,RDN,LDN - 02/25/2019 12:21 PM EST Pt has upcoming appt with RD in March. Will address diet at that time. If pt would like to be added to the cancellation list to get in sooner, that would be an option. * Telephone Encounter - Purvi Walker - 02/24/2019 3:00 PM EST Pt has been diagnosis with Diabetes and now the diet you put her on isnt going to work out for her-- her pcp says she needs to check in with you documented in this encounter Plan of Treatment Not on file documented as of this encounter Visit Diagnoses Not on filedocumented in this encounter Care Teams Senior Wind Turbine Technician Relationship Specialty Start Date End Date Janessa Langley MD PCP - General Internal Medicine 12/02/15 11/03/19 Mark Caraballo MD PCP - General Family Practice 11/04/19 04/13/20 Janessa Langley MD PCP - General Internal Medicine 04/14/20 08/08/20 Layla Segal MD [address] [place] [address] PCP - General Internal Medicine 08/09/20 10/19/20 Amparo Pressley MD [address] [place] [address] PCP - General Internal Medicine 10/20/20 12/12/20 Layla Segal MD [address] [place] [address] PCP - General Internal Medicine 12/13/20 01/07/22 [facility], Pcp [address] [address] PCP - General Internal Medicine 01/08/22 Isela Roe MD [address] [address] Specialist Cardiology 10/28/20 documented as of this encounter
--- OUTSIDE RECORDS SUMMARY | 2024-05-04 16:57 | XMS_ITS | Encounter Summary ---
Author Organization [facility] Address [address] [place] [address] Care Team Providers Care Trim Mechanic Name Role Phone Mark Alfonso MD Primary Care Provider Unavail able Janessa Langley MD Primary Care Provider Unavaila Mark Valera MD Primary Care Provider Unavail able Janessa Langley MD Primary Care Provider Unavaila Mark Mayo MD Primary Care Provider Unav ailable Janessa Langley MD Primary Care Provider Unavaila Layla Juarez MD Primary Care Provider [phone] Amparo Pressley MD Primary Care Provider Un available Isela Roe MD Unavailable [phone] Layla Segal MD Primary Care Provider [phone] [facility], Pcp Primary Care Provider Unavailabl e Reason for Visit * Reason Onset Date Comments Provider Call Back 04/02/2014 Encounter Details Date Type Department Care Team Description 04/02/2014 Telephone Physiatry [address] [address] Christopher Wong DO Provider Call Back Social History Tobacco Use Types Packs/Day Years Used Date Smoking Tobacco: Former Cigarettes 0.3 Q uit: 03/01/2011 Smokeless Tobacco: Never Comments:currently occasiona l Alcohol Use Standard Drinks/Week Comments No 0 (1 standard drink = 0.6 oz pur e alcohol) Sex Assigned at Date Recorded Not on file documented as of this encounter Miscellaneous Notes * Telephone Encounter - Amparo Red - 04/02/2014 9:44 AM EST Pt calling to reschedule injection that was cancelled for 03/19/14. Please contact pt. documented in this encounter Plan of Treatment Not on file documented as of this encounter Visit Diagnoses Not on filedocumented in this encounter Care Teams Trim Mechanic Relationship Specialty Start Date End Date Mark [...] Internal Medicine 04/14/20 08/08/20 Layla Segal MD [address] [place] [address] PCP - General Internal Medicine 08/09/20 10/19/20 Amparo Pressley MD [address] [place] [address] PCP - General Internal Medicine 10/20/20 12/12/20 Layla Segal MD [address] [place] [address] PCP - General Internal Medicine 12/13/20 01/07/22 [facility], Pcp [address] [address] PCP - General Internal Medicine 01/08/22 Isela Roe MD [address] [address] Specialist Cardiology 10/28/20 documented as of this encounter
--- OUTSIDE RECORDS SUMMARY | 2024-05-04 16:57 | XMS_ITS | Encounter Summary ---
Author Organization [facility] Address [address] [place] [address] Care Team Providers Care Motion Picture Printer Name Role Phone Janessa Langley MD Primary Care Provider UnavailMark Guadarrama MD Primary Care Provider Unav ailable Janessa Langley MD Primary Care Provider Unavaila Layla Juarez MD Primary Care Provider [phone] Amparo Pressley MD Primary Care Provider Un available Isela Roe MD Unavailable [phone] Layla Segal MD Primary Care Provider [phone] [facility] Primary Care Provider Unavailabl e Reason for Visit * Reason Onset Date Comments Prior Authorization 07/24/2017 oxycodone-ac etaminophen (PERCOCET) 5-325 MG per tablet Encounter Details Date Type Department Care Team Description 07/24/2017 Telephone Medicine/Pediatrics [address] [address] Uma Martinez PA-C Prior Authorization (oxycodone-acetaminophen (PERCOCET) 5-325 MG per tablet) Social History Tobacco Use Types Packs/Day Years Used Date Smoking Tobacco: Former Cigarettes 0.3 Q uit: 05/02/2015 Smokeless Tobacco: Never Alcohol Use Standard Drinks/Week Comments No 0 (1 standard drink = 0.6 oz pur e alcohol) Sex Assigned at Date Recorded Not on file documented as of this encounter Miscellaneous Notes * Telephone Encounter - Denia Yuan M.A. - 07/30/2017 8:27 AM EDT Spoke to Violeta at [facility] this medication has been approved from 07/27/17 until 07/27/18 * Telephone Encounter - Suma Means M.A. - 07/26/2017 1:33 PM EDT Prior Authorization from Cover My Meds was denied for Oxycodone-acetaminophen. Did Prior [place] [facility] [place] [facility] Op[facility] [place] on paper and faxed. Awaiting response. * Telephone Encounter - Suma Means M.A. - 07/25/2017 9:28 AM EDT Oxycodone-Acetaminophen is not covered by insurance. The patient has used hydrocodone-acetaminophen and states it is not helping. Did Cover my meds 07/25/17. Awaiting response. * Telephone Encounter - Amy Mak - 07/24/2017 4:03 PM EDT Pre Authorization for Medication-do not complete and send this encounter unless you have the fax from the pharmacy. Is this a Cover My Meds request: Yes -- Jordan Code [id number] Name of Medication oxycodone-acetaminophen (PERCOCET) Dose of Medication 5-325 MG per tablet How does patient take this med? Take 1 tab every 8 hours as needed for pain. What Pharmacy did the fax come from: [facility] Pharmacy fax #: [phone] [employer] Information from fax: What Prescription Plan does the patient have? N/A BIN/PCN if applicable: N/A Cardholder ID:N/A Person Code: N/A Relationship Code: N/A Help desk phone: N/A PRIOR AUTH FAXED TO [phone] documented in this encounter Plan of Treatment Not on file documented as of this encounter Visit Diagnoses Not on filedocumented in this encounter Care Teams Motion Picture Printer Relationship Specialty Start Date End Date Janessa Langley MD PCP - General Internal Medicine 12/02/15 11/03/19 Mark Caraballo MD PCP - General Family Practice 11/04/19 04/13/20 Janessa Langley MD PCP - General Internal Medicine 04/14/20 08/08/20 Layla Segal MD [address] [place] [address] PCP - General Internal Medicine 08/09/20 10/19/20 Amparo Pressley MD [address] [place] [address] PCP - General Internal Medicine 10/20/20 12/12/20 Layla Segal MD [address] [place] [address] PCP - General Internal Medicine 12/13/20 01/07/22 [facility], Pcp [address] [address] PCP - General Internal Medicine 01/08/22 Isela Roe MD [address] [address] Specialist Cardiology 10/28/20 documented as of this encounter
--- OUTSIDE RECORDS SUMMARY | 2024-05-04 16:57 | XMS_ITS | Encounter Summary ---
Author Organization [facility] Address [address] [place] [address] Care Team Providers Care Media Producer Name Role Phone Amparo Pressley MD Primary Care Provider Un available Mark Alfonso MD Primary Care Provider Unavail able Janessa Langley MD Primary Care Provider Unavaila Mark Valera MD Primary Care Provider Unavail able Janessa Langley MD Primary Care Provider Unavaila Mark Mayo MD Primary Care Provider Unav ailable Janessa Langley MD Primary Care Provider Unavaila Layla Juarez MD Primary Care Provider [phone] Amparo Pressley MD Primary Care Provider Un available Isela Roe MD Unavailable [phone] Layla Segal MD Primary Care Provider [phone] [facility] Primary Care Provider Unavailabl e Reason for Visit * Reason Onset Date Comments Form 07/11/2011 Encounter Details Date Type Department Care Team Description 07/11/2011 Telephone Medicine/Pediatrics - [address] [phone] Amparo Pressley MD Form Social History Tobacco Use Types Packs/Day Years Used Date Smoking Tobacco: Former Cigarettes 0.3 Q uit: 03/01/2011 Smokeless Tobacco: Never Comments:currently occasiona l Alcohol Use Standard Drinks/Week Comments Not Asked 0 (1 standard drink = 0.6 oz pur e alcohol) Sex Assigned at Date Recorded Not on file documented as of this encounter Miscellaneous Notes * Telephone Encounter - Viky Rodriguez M.A. - 07/11/2011 4:54 PM EDT Faxed and filed * Telephone Encounter - Sherry Michaud - 07/11/2011 4:20 PM EDT Patients [facility] Pt. demographics and [facility] information verified YES Mailing address if different from home address NO Name of treating provider Amparo Pressley Address/zip and phone number for treating provider [address] [place] [address] [address][phone] For what reason do they see this provider(s) How often they see them 1 visits per week, 4visits per month How long will they require these services 52 weeks, 12 months Medical reason why they are unable to use public transportation: Patient Active Problem List Diagnoses Code ??? Pots (Postural Orthostatic Tachycardia Syndrome) 785.0 ??? TIA (Transient Ischemic Attack) 435.9 ??? Seizure Disorder 345.90 ??? Fibromyalgia 729.1 ??? Post-Traumatic Stress Syndrome 309.81 ??? Anxiety 300.00 ??? Tobacco Use Disorder 305.1 ??? Thyroid nodule 241.0 ??? Papillary carcinoma of thyroid 193 ??? Encounter for long-term (current) use of other high-risk medications V58.69 Do they need a wheelchair van: NO Do they need an escort to accompany them? NO Will they have an alternative pick-up address? NO PT DOES NOT NEED RELEASE OF INFORMATION SIGNED documented in this encounter Plan of Treatment Not on file documented as of this encounter Visit Diagnoses Not on filedocumented in this encounter Care Teams Media Producer Relationship Specialty Start Date End Date Amparo [...] Internal Medicine 04/14/20 08/08/20 Layla Segal MD [address] [place] [address] PCP - General Internal Medicine 08/09/20 10/19/20 Amparo Pressley MD PCP - General Internal Medicine 10/20/20 Layla Segal MD [address] [place] [address] PCP - General Internal Medicine 12/13/20 01/07/22 [facility], Pcp [address] [address] PCP - General Internal Medicine 01/08/22 Isela Roe MD 300 [facility] [address] [place] [address] Specialist Cardiology 10/28/20 documented as of this encounter
--- OUTSIDE RECORDS SUMMARY | 2024-05-04 16:57 | XMS_ITS | Encounter Summary ---
Author Organization [facility] Address [address] [place] [address] Care Team Providers Care Epoxy Coatings Installer Name Role Phone Amparo Pressley MD Primary Care Provider Un available Mark Alfonso MD Primary Care Provider Unavail able Janessa Langley MD Primary Care Provider Unavaila Mark Valera MD Primary Care Provider Unavail able Janessa Langley MD Primary Care Provider Unavaila Mark Mayo MD Primary Care Provider Unav ailable Janessa Langley MD Primary Care Provider Unavaila Layla Juarez MD Primary Care Provider [phone] Amparo Pressley MD Primary Care Provider Un available Isela Roe MD Unavailable [phone] Layla Segal MD Primary Care Provider [phone] [facility], Pcp Primary Care Provider Unavailabl e Encounter Details Date Type Department Care Team Description 05/23/2011 Controlled Substance Plan Medical Records [address] [place] [address] Abstract, Provider Social History Tobacco Use Types [...] on filedocumented in this encounter Care Teams Epoxy Coatings Installer Relationship Specialty Start Date End Date Amparo [...] Internal Medicine 04/14/20 08/08/20 Layla Segal MD [address] [place] [address] PCP - General Internal Medicine 08/09/20 10/19/20 Amparo Pressley MD PCP - General Internal Medicine 10/20/20 Layla Segal MD [address] [place] [address] PCP - General Internal Medicine 12/13/20 01/07/22 [facility], Pcp [address] [address] PCP - General Internal Medicine 01/08/22 Isela Roe MD 300 [facility] [address] [place] [address] Specialist Cardiology 10/28/20 documented as of this encounter
--- OUTSIDE RECORDS SUMMARY | 2024-05-04 16:57 | XMS_ITS | Encounter Summary ---
Author Organization [facility] Address [address] [place] [address] Care Team Providers Care Checker Product Design Name Role Phone Mark Alfonso MD Primary Care Provider Unavail able Janessa Langley MD Primary Care Provider Unavaila Mrak Valera MD Primary Care Provider Unavail able Janessa Langley MD Primary Care Provider Unavaila Mark Mayo MD Primary Care Provider Unav ailable Janessa Langley MD Primary Care Provider Unavaila Layla Juarez MD Primary Care Provider [phone] Amparo Pressley MD Primary Care Provider Un available Isela Roe MD Unavailable [phone] Layla Segal MD Primary Care Provider [phone] [facility], Pcp Primary Care Provider Unavailabl e Reason for Visit * Reason Onset Date Comments Error 03/23/2014 Encounter Details Date Type Department Care Team Description 03/23/2014 Refill Adult Medicine [address] [address] Mark Alfonso MD Error Social History Tobacco Use Types Packs/Day Years [...] on filedocumented in this encounter Care Teams Checker Product Design Relationship Specialty Start Date End Date Mark [...] Medicine 04/14/20 08/08/20 Layla Segal MD [address] [place] [address] PCP - General Internal Medicine 08/09/20 10/19/20 Amparo Pressley MD [address] [place] [address] PCP - General Internal Medicine 10/20/20 12/12/20 Layla Segal MD [address] [place] [address] PCP - General Internal Medicine 12/13/20 01/07/22 [facility], Pcp [address] [address] PCP - General Internal Medicine 01/08/22 Isela Roe MD [address] [address] Specialist Cardiology 10/28/20 documented as of this encounter
--- OUTSIDE RECORDS SUMMARY | 2024-05-04 16:57 | XMS_ITS | Encounter Summary ---
Author Organization [facility] Address [address] [place] [address] Care Team Providers Care Armored Cable Machine Operator Name Role Phone Janessa Langley MD Primary Care Provider UnavailMark Guadarrama MD Primary Care Provider Unav ailable Janessa Langley MD Primary Care Provider Unavaila Layla Juarez MD Primary Care Provider [phone] Amparo Pressley MD Primary Care Provider Un available Isela Roe MD Unavailable [phone] Layla Segal MD Primary Care Provider [phone] [facility], [facility] Primary Care Provider Unavailabl e Encounter Details Date Type Department Care Team Description 06/09/2019 Orders Only Medicine/Pediatrics - [address] [id number] Janessa Langley MD Other screening mammogram Social History Tobacco Use Types Packs/Day Years [...] Procedure Name Priority Date/Time Associated Diagnosis Comments SONO BREAST, LIMITED Routine 05/13/2019 Other screening mammogram SCR MAMMO BI INCL CAD Routine 05/13/2019 Other screening mammogram documented in this encounter Results * SONO BREAST, LIMITED (05/13/2019) Janessa Langley MD MAMMOGRAPHY * SCR MAMMO BI INCL CAD (05/13/2019) Janessa Langley MD MAMMOGRAPHY documented in this encounter Visit Diagnoses Diagnosis Other screening mammogram documented in this encounter Care Teams Armored Cable Machine Operator Relationship Specialty Start Date End Date Janessa Langley MD PCP - General Internal Medicine 12/02/15 11/03/19 Mark Caraballo MD PCP - General Family Practice 11/04/19 04/13/20 Janessa Langley MD PCP - General Internal Medicine 04/14/20 08/08/20 Layla Segal MD [address] [place] [address] PCP - General Internal Medicine 08/09/20 10/19/20 Amparo Pressley MD [address] [place] [address] PCP - General Internal Medicine 10/20/20 12/12/20 Layla Segal MD [address] [place] [address] PCP - General Internal Medicine 12/13/20 01/07/22 [facility], Pcp [address] [address] PCP - General Internal Medicine 01/08/22 Isela Roe MD [address] [address] Specialist Cardiology 10/28/20 documented as of this encounter
--- OUTSIDE RECORDS SUMMARY | 2024-05-04 16:57 | XMS_ITS | Encounter Summary ---
Author Organization [facility] Address [address] [place] [address] Care Team Providers Care Form Grader Operator Name Role Phone Janessa Langley MD Primary Care Provider Mark Thomas MD Primary Care Provider Unav ailable Janessa Langley MD Primary Care Provider Unavaila Layla Juarez MD Primary Care Provider [phone] Amparo Pressley MD Primary Care Provider Un available Isela Roe MD Unavailable [phone] Layla Segal MD Primary Care Provider [phone] [facility], [facility] Primary Care Provider Unavailabl e Reason for Visit * Reason Onset Date Comments injection 05/24/2017 Encounter Details Date Type Department Care Team Description 05/24/2017 Telephone Physiatry - [address] [phone] Christopher Wong DO injection Social History Tobacco Use Types Packs/Day Years Used Date Smoking Tobacco: Former Cigarettes 0.3 Q uit: 05/02/2015 Smokeless Tobacco: Never Alcohol Use Standard Drinks/Week Comments No 0 (1 standard drink = 0.6 oz pur e alcohol) Sex Assigned at Date Recorded Not on file documented as of this encounter Miscellaneous Notes * Telephone Encounter - Saba Bull M.A. - 05/24/2017 9:50 AM EST Patient needs appointment. Her insurance requires appointment before injection * Telephone Encounter - Augusta Krishnamurthy - 05/24/2017 9:23 AM EST Request for injection Date of last injection: 03/13/2017 Location/body part where pain is being experienced: left SI joint Is this the same pain you had before your last injection?: yes Any recent injury: NO documented in this encounter Plan of Treatment Not on file documented as of this encounter Visit Diagnoses Not on filedocumented in this encounter Care Teams Form Grader Operator Relationship Specialty Start Date End Date Janessa Langley MD PCP - General Internal Medicine 12/02/15 11/03/19 Mark Caraballo MD PCP - General Family Practice 11/04/19 04/13/20 Janessa Langley MD PCP - General Internal Medicine 04/14/20 08/08/20 Layla Segal MD [address] [place] [address] PCP - General Internal Medicine 08/09/20 10/19/20 Amparo Pressley MD [address] [place] [address] PCP - General Internal Medicine 10/20/20 12/12/20 Layla Segal MD [address] [place] [address] PCP - General Internal Medicine 12/13/20 01/07/22 [facility], Pcp [address] [address] PCP - General Internal Medicine 01/08/22 Isela Roe MD [address] [address] Specialist Cardiology 10/28/20 documented as of this encounter
--- OUTSIDE RECORDS SUMMARY | 2024-05-04 16:57 | XMS_ITS | Encounter Summary ---
Author Organization [facility] Address [address] [place] [address] Care Team Providers Care Filenet P8 Developer Name Role Phone Janessa Langley MD Primary Care Provider Mark Thomas MD Primary Care Provider Unav ailable Janessa Langley MD Primary Care Provider Unavaila Layla Juarez MD Primary Care Provider [phone] Amparo Pressley MD Primary Care Provider Un available Isela Roe MD Unavailable [phone] Layla Segal MD Primary Care Provider [phone] [facility] Encounter Details Date Type Department Care Team Description 07/02/2017 [facility] Medical Records [address] [place] [address] Abstract, Provider Social History Tobacco Use Types [...] on filedocumented in this encounter Care Teams Filenet P8 Developer Relationship Specialty Start Date End Date Janessa Langley MD PCP - General Internal Medicine 12/02/15 11/03/19 Mark Caraballo MD PCP - General Family Practice 11/04/19 04/13/20 Janessa Langley MD PCP - General Internal Medicine 04/14/20 08/08/20 Layla Segal MD [address] [place] [address] PCP - General Internal Medicine 08/09/20 10/19/20 Amparo Pressley MD [address] [place] [address] PCP - General Internal Medicine 10/20/20 12/12/20 Layla Segal MD [address] [place] [address] PCP - General Internal Medicine 12/13/20 01/07/22 [facility], Pcp 300 [facility] [address] [place] [address] PCP - General Internal Medicine 01/08/22 Isela Roe MD 300 [facility] [address] [place] [address] Specialist Cardiology 10/28/20 documented as of this encounter
--- OUTSIDE RECORDS SUMMARY | 2024-05-04 16:57 | XMS_ITS | Encounter Summary ---
Author Organization [facility] Address [address] [place] [address] Care Team Providers Care Glazing Superintendent Name Role Phone Ampaor Pressley MD Primary Care Provider Un available Mark Alfonso MD Primary Care Provider Unavail able Janessa Langley MD Primary Care Provider Unavaila Mark Valera MD Primary Care Provider Unavail able Janessa Langley MD Primary Care Provider Unavaila Mark Mayo MD Primary Care Provider Unav ailable Janessa Langley MD Primary Care Provider Unavaila Layla Juarez MD Primary Care Provider [phone] Amparo Pressley MD Primary Care Provider Un available Isela Roe MD Unavailable [phone] Layla Segal MD Primary Care Provider [phone] [facility], Pcp Primary Care Provider Unavailabl e Encounter Details Date Type Department Care Team Description 11/06/2011 Community Service Technician Report Medical Records [address] [place], [place] [phone] [place] [address] Social History Tobacco Use Types Packs/Day Years [...] on filedocumented in this encounter Care Teams Glazing Superintendent Relationship Specialty Start Date End Date Amparo Pressley MD PCP - General 01/05/08 06/08/12 Mark Alfonso MD PCP - General Internal Medicine 06/09/12 09/06/15 Janessa Langley MD PCP - General Internal Medicine 09/07/15 09/08/15 Mark Alfonso MD PCP - General Internal Medicine 09/09/15 12/01/15 Janesas Langley MD PCP - General Internal Medicine 12/02/15 11/03/19 Mark Caraballo MD PCP - General Family Practice 11/04/19 04/13/20 Janessa Langley MD PCP - General Internal Medicine 04/14/20 08/08/20 Layla Segal MD [address] [place] [address] PCP - General Internal Medicine 08/09/20 10/19/20 Amparo Pressley MD PCP - General Internal Medicine 10/20/20 Layla Segal MD [address] [place] [address] PCP - General Internal Medicine 12/13/20 01/07/22 [facility], Pcp [address] [address] PCP - General Internal Medicine 01/08/22 Isela Roe MD 300 [facility] [address] [place] [address] Specialist Cardiology 10/28/20 documented as of this encounter
--- OUTSIDE RECORDS SUMMARY | 2024-05-04 16:57 | XMS_ITS | Encounter Summary ---
Author Organization [facility] Address [address] [place] [address] Care Team Providers Care Electronic Game Developer Name Role Phone Janessa Langley MD Primary Care Provider UnavailMark Guadarrama MD Primary Care Provider Unav ailable Janessa Langley MD Primary Care Provider Unavaila Layla Juarez MD Primary Care Provider [phone] Amparo Pressley MD Primary Care Provider Un available Isela Roe MD Unavailable [phone] Layla Segal MD Primary Care Provider [phone] [facility] Primary Care Provider Unavailabl e Reason for Referral * (Routine) - Closed Specialty Diagnoses / Procedures Referred By Jeanette t Referred To Contact Urology Procedures REFERRAL TO UROLOGY Janessa Langley MD [address] [place] [address] External Urology Referral ID Status Reason Start Date Expiration Date V isits Requested Visits Authorized SEE REVIEW ON 07/16/2017 Closed 07/16/2017 1 1 Reason for Visit * Reason Onset Date Comments APPOINTMENT 07/16/2017 Encounter Details Date Type Department Care Team Description 07/16/2017 Telephone Medicine/Pediatrics - [address] [phone] Janessa Langley MD APPOINTMENT Social History Tobacco Use Types Packs/Day Years Used Date Smoking Tobacco: Former Cigarettes 0.3 Q uit: 05/02/2015 Smokeless Tobacco: Never Alcohol Use Standard Drinks/Week Comments No 0 (1 standard drink = 0.6 oz pur e alcohol) Sex Assigned at Date Recorded Not on file documented as of this encounter Miscellaneous Notes * Telephone Encounter - Roxanne Kidd L.P.NLilliana - 07/16/2017 1:18 PM EDT Pt notified * Telephone Encounter - Janessa Langley MD - 07/16/2017 1:05 PM EDT Noted. She can cancel any appointment that she has in [place] if she needs to. * Telephone Encounter - Gladis Tinoco RN - 07/16/2017 12:19 PM EDT See below Pended, mention only wants [facility] * Telephone Encounter - Mindy Tam - 07/16/2017 12:06 PM EDT Pt states she wants dr langley to refer her out to a urologist in [facility]. She does not want to go to [place]. Patient states she has mentioned this multiple times. She wants any appts out in [place] cancelled. documented in this encounter Plan of Treatment Not on file documented as of this encounter Visit Diagnoses Not on filedocumented in this encounter Care Teams Electronic Game Developer Relationship Specialty Start Date End Date Janessa Langley MD PCP - General Internal Medicine 12/02/15 11/03/19 Mark Caraballo MD PCP - General Family Practice 11/04/19 04/13/20 Janessa Langley MD PCP - General Internal Medicine 04/14/20 08/08/20 Layla Segal MD [address] [place] [address] PCP - General Internal Medicine 08/09/20 10/19/20 Amparo Pressley MD [address] [place] [address] PCP - General Internal Medicine 10/20/20 12/12/20 Layla Segal MD [address] [place] [address] PCP - General Internal Medicine 12/13/20 01/07/22 [facility], Pcp [address] [address] PCP - General Internal Medicine 01/08/22 Isela Roe MD 300 [facility] [address] [place] [address] Specialist Cardiology 10/28/20 documented as of this encounter
--- OUTSIDE RECORDS SUMMARY | 2024-05-04 16:57 | XMS_ITS | Encounter Summary ---
Author Organization [facility] Address [address] [place] [address] Care Team Providers Care Software Security Architect Name Role Phone Janessa Langley MD Primary Care Provider Mark Thomas MD Primary Care Provider Unav ailable Janessa Langley MD Primary Care Provider Unavaila Layla Juarez MD Primary Care Provider [phone] Amparo Pressley MD Primary Care Provider Un available Isela Roe MD Unavailable [phone] Layla Segal MD Primary Care Provider [phone] [facility] Primary Care Provider Unavailabl e Reason for Visit * Reason Onset Date Comments other 06/26/2016 Encounter Details Date Type Department Care Team Description 06/26/2016 Telephone Medicine/Pediatrics - [address] [phone] Janessa Lnagley MD other Social History Tobacco Use Types Packs/Day Years Used Date Smoking Tobacco: Former Cigarettes 0.3 Q uit: 05/02/2015 Smokeless Tobacco: Never Alcohol Use Standard Drinks/Week Comments No 0 (1 standard drink = 0.6 oz pur e alcohol) Sex Assigned at Date Recorded Not on file documented as of this encounter Miscellaneous Notes * Telephone Encounter - Uma Martinez PA-C - 06/29/2016 11:03 AM EDT I am sending her a mychart message to clarify exactly what she wants to be seen about by neurology. * Telephone Encounter - Roxanne MartinezP.NLilliana - 06/29/2016 10:46 AM EDT Pt states she has a nerve in her back she is insistent it is not back pain she also refuses to go to the physiatry * Telephone Encounter - Uma Martinez PA-C - 06/29/2016 9:26 AM EDT For back pain and neuropathy seeing a specialist managers would be appropriate, not neurology. Where is thepain in her back? Has she had imaging of the affected area? I see an MRI of the lower back from [place] * Telephone Encounter - Roxanne MartinezP.NLilliana - 06/29/2016 8:58 AM EDT Pt states she will not do this change she is wondering if she can see a neurologist * Telephone Encounter - Uma Martinez PA-C - 06/29/2016 8:23 AM EDT Note reviewed. Dr. Richards recommends Gabapentin or Elavil. To avoid polypharmacy, I would have her taper off Trazodone at night and have Gabapentin replace this at night since it is also sedating and would help her sleep. I would have her decrease trazodone to 1/2 tab nightly for a week and then 1/2 tab every other night for a week and then stop the medication. She can start Gabapentin 300 mg nightly and we can increase this if needed. Thank you * Telephone Encounter - Gladis Tinoco RN - 06/28/2016 2:09 PM EDT Fax received. To provider * Telephone Encounter - Gladis Tinoco RN - 06/28/2016 1:56 PM EDT To be faxed * Telephone Encounter - Gladis Tinoco RN - 06/27/2016 9:27 AM EDT Called [phone] request opt 1, ask for medical practice administrator. Note not ready yet for provider. * Telephone Encounter - Alicia Winchester RN - 06/26/2016 3:03 PM EDT Patient reports recommends nerve med instead of pain med. Called office for records, note has not been completed yet. Attempted to obtain fax # to send request, was on hold for > 5mins. Will try again tomorrow. * Telephone Encounter - Purvi Lopez - 06/26/2016 2:50 PM EDT Was asking if Dr. Richards had called or emailed Uma Martinez or Dr. Tian regarding a medication forthe damanged nerve in her back. documented in this encounter Plan of Treatment Not on file documented as of this encounter Visit Diagnoses Not on filedocumented in this encounter Care Teams Software Security Architect Relationship Specialty Start Date End Date Janessa Langley MD PCP - General Internal Medicine 12/02/15 11/03/19 Mark Caraballo MD PCP - General Family Practice 11/04/19 04/13/20 Janessa Langley MD PCP - General Internal Medicine 04/14/20 08/08/20 Layla Segal MD [address] [place] [address] PCP - General Internal Medicine 08/09/20 10/19/20 Amparo Pressley MD [address] [place] [address] PCP - General Internal Medicine 10/20/20 12/12/20 Layla Segal MD [address] [place] [address] PCP - General Internal Medicine 12/13/20 01/07/22 [facility], Pcp [address] [address] PCP - General Internal Medicine 01/08/22 Isela Roe MD [address] [facility] [address] [place] [address] Specialist Cardiology 10/28/20 documented as of this encounter
--- OUTSIDE RECORDS SUMMARY | 2024-05-04 16:57 | XMS_ITS | Encounter Summary ---
Author Organization [facility] Address [address] [place] [address] Care Team Providers Care Mac Artist Name Role Phone Amparo Pressley MD Primary Care Provider Un available Mark Alfonso MD Primary Care Provider Unavail able Janessa Langley MD Primary Care Provider Unavaila Mark Valera MD Primary Care Provider Unavail able Janessa Langley MD Primary Care Provider Unavaila Mark Mayo MD Primary Care Provider Unav ailable Janessa Langley MD Primary Care Provider Unavaila Layla Juarez MD Primary Care Provider [phone] Amparo Pressley MD Primary Care Provider Un available Isela Roe MD Unavailable [phone] Layla Segal MD Primary Care Provider [phone] [facility], Pcp Primary Care Provider Unavailabl e Encounter Details Date Type Department Care Team Description 07/10/2011 [facility] Medical Records [address] [place] [address] Amparo Pressley MD Social History Tobacco Use Types Packs/Day [...] on filedocumented in this encounter Care Teams Mac Artist Relationship Specialty Start Date End Date Amparo [...] Internal Medicine 04/14/20 08/08/20 Layla Segal MD [address] [place] [address] PCP - General Internal Medicine 08/09/20 10/19/20 Amparo Pressley MD PCP - General Internal Medicine 10/20/20 Layla Segal MD [address] [place] [address] PCP - General Internal Medicine 12/13/20 01/07/22 [facility], Pcp [address] [address] PCP - General Internal Medicine 01/08/22 Isela Roe MD [address] [address] Specialist Cardiology 10/28/20 documented as of this encounter
--- OUTSIDE RECORDS SUMMARY | 2024-05-04 16:57 | XMS_ITS | Encounter Summary ---
Author Organization [facility] Address [address] [place] [address] Care Team Providers Care Ios Programmer Name Role Phone Janessa Langley MD Primary Care Provider Mark Thomas MD Primary Care Provider Unav ailable Janessa Langley MD Primary Care Provider Unavaila Layla Juarez MD Primary Care Provider [phone] Amparo Pressley MD Primary Care Provider Un available Isela Roe MD Unavailable [phone] Layla Segal MD Primary Care Provider [phone] [facility] Primary Care Provider Unavailabl e Reason for Visit * Reason Onset Date Comments REFERRAL 06/24/2017 Encounter Details Date Type Department Care Team Description 06/24/2017 Telephone Medicine/Pediatrics - [address] [phone] Janessa Langley MD REFERRAL Social History Tobacco Use Types Packs/Day Years Used Date Smoking Tobacco: Former Cigarettes 0.3 Q uit: 05/02/2015 Smokeless Tobacco: Never Alcohol Use Standard Drinks/Week Comments No 0 (1 standard drink = 0.6 oz pur e alcohol) Sex Assigned at Date Recorded Not on file documented as of this encounter Miscellaneous Notes * Telephone Encounter - Rose Hernan - 06/24/2017 10:31 AM EDT We do not have urology in [place] patient would have to be seen externally and Dr. Frost is a nephrology so which specailist is patient being seen for and would need a correct diagnosis. * Telephone Encounter - Ashley Taveras - 06/24/2017 10:23 AM EDT Request for a referral to a [facility]ist for a patient with a [facility] PCP. If patient does NOT have a [facility] PCP they must obtain a referral from their PCP before being seen-do not submit request to Referrals department-contact patient. Ace [facility] and Destin [facility] should not see patients with community PCP's as they are not billed as specialists. Specialty patient is being referred to: Urology Name of Specialist patient is seeing: Dr. Santosh saha Reason/diagnosis for visit: hematuria Date of appoinment: needs referral to book If retro, date referral needs to start: Janessa Tian Payor: [employer] / Plan: [employer] / Product Type: MEDICAID RISK documented in this encounter Plan of Treatment Not on file documented as of this encounter Visit Diagnoses Not on filedocumented in this encounter Care Teams Ios Programmer Relationship Specialty Start Date End Date Janessa Langley MD PCP - General Internal Medicine 12/02/15 11/03/19 Mark Caraballo MD PCP - General Family Practice 11/04/19 04/13/20 Janessa Langley MD PCP - General Internal Medicine 04/14/20 08/08/20 Layla Segal MD [address] [place] [address] PCP - General Internal Medicine 08/09/20 10/19/20 Amparo Pressley MD [address] [place] [address] PCP - General Internal Medicine 10/20/20 12/12/20 Layla Segal MD [address] [place] [address] PCP - General Internal Medicine 12/13/20 01/07/22 [facility], Pcp [address] [place], [place] [address] [address] PCP - General Internal Medicine 01/08/22 Isela Roe MD 300 [facility] [address] [place] [address] Specialist Cardiology 10/28/20 documented as of this encounter
--- OUTSIDE RECORDS SUMMARY | 2024-05-04 16:57 | XMS_ITS | Encounter Summary ---
Author Organization [facility] Address [address] [place] [address] Care Team Providers Care Tower Dragline Operator Name Role Phone Amparo Pressley MD Primary Care Provider Un available Mark Alfonso MD Primary Care Provider Unavail able Janessa Langley MD Primary Care Provider Unavaila Mark Valera MD Primary Care Provider Unavail able Janessa Langley MD Primary Care Provider Unavaila Mark Mayo MD Primary Care Provider Unav ailable Janessa Langley MD Primary Care Provider Unavaila Layla Juarez MD Primary Care Provider [phone] Amparo Pressley MD Primary Care Provider Un available Isela Roe MD Unavailable [phone] Layla Segal MD Primary Care Provider [phone] [facility], Pcp Primary Care Provider Unavailabl e Encounter Details Date Type Department Care Team Description 06/20/2011 Precision Lens Technician Report Medical Records [address] [place] [address] Ilan Escobedo Social History Tobacco Use Types [...] on filedocumented in this encounter Care Teams Tower Dragline Operator Relationship Specialty Start Date End Date [...] Medicine 04/14/20 08/08/20 Layla Segal MD [address] [place] [address] PCP - General Internal Medicine 08/09/20 10/19/20 Amparo Pressley MD PCP - General Internal Medicine 10/20/20 Layla Segal MD [address] [place] [address] PCP - General Internal Medicine 12/13/20 01/07/22 [facility], Pcp [address] [address] PCP - General Internal Medicine 01/08/22 Isela Roe MD [address] [address] Specialist Cardiology 10/28/20 documented as of this encounter
--- OUTSIDE RECORDS SUMMARY | 2024-05-04 16:57 | XMS_ITS | Encounter Summary ---
Author Organization [facility] Address [address] [place] [address] Care Team Providers Care Professor Of Violin Name Role Phone Isela Roe MD Unavailable [phone] Layla Segal MD Primary Care Provider [phone] [facility], Pcp Primary Care Provider Unavailabl e Encounter Details Date Type Department Care Team Description 10/04/2021 Refill Allergy [place] [address] [place] [phone] Uma Martinez PA-C Social History Tobacco Use Types Packs/Day Years [...] on filedocumented in this encounter Care Teams Professor Of Violin Relationship Specialty Start Date End Date Layla Segal MD [address] [place] [address] PCP - General Internal Medicine 12/13/20 01/07/22 [facility], Pcp [address] [place] [address] PCP - General Internal Medicine 01/08/22 Isela Roe MD 300 [facility] [address] [place] [address] Specialist Cardiology 10/28/20 documented as of this encounter
--- OUTSIDE RECORDS SUMMARY | 2024-05-04 16:57 | XMS_ITS | Encounter Summary ---
Author Organization [facility] Address [address] [place] [address] Care Team Providers Care Upholsterer Inside Name Role Phone Isela Roe MD Unavailable [phone] Layla Segal MD Primary Care Provider [phone] [facility], Pcp Primary Care Provider Unavailabl e Encounter Details Date Type Department Care Team Description 10/25/2021 Orders Only Adult Medicine [address] [id number] She Ornelas PA-C [address] [place] [address] [phone] Social History Tobacco Use Types Packs/Day Years [...] on filedocumented in this encounter Care Teams Upholsterer Inside Relationship Specialty Start Date End Date Layla Segal MD [address] [place] [address] [id number] PCP - General Internal Medicine 12/13/20 01/07/22 [facility], Pcp [address] [place] [address] PCP - General Internal Medicine 01/08/22 Isela Roe MD 300 [facility] 154 [place] [address] Specialist Cardiology 10/28/20 documented as of this encounter
--- OUTSIDE RECORDS SUMMARY | 2024-05-04 16:57 | XMS_ITS | Encounter Summary ---
Author Organization [facility] Address [address] [place] [address] Care Team Providers Care Motorbike Courier Name Role Phone Janessa Langley MD Primary Care Provider Mark Thomas MD Primary Care Provider Unav ailable Janessa Langley MD Primary Care Provider Unavaila Layla Juarez MD Primary Care Provider [phone] Amparo Perssley MD Primary Care Provider Un available Isela Roe MD Unavailable [phone] Layla Segal MD Primary Care Provider [phone] [facility] Primary Care Provider Unavailabl e Encounter Details Date Type Department Care Team Description 09/11/2017 Chain Puller Report Medical Records [address] [place] [address] Chris Gerber MD Social History Tobacco Use [...] on filedocumented in this encounter Care Teams Motorbike Courier Relationship Specialty Start Date End Date Janessa Langley MD PCP - General Internal Medicine 12/02/15 11/03/19 Mark Caraballo MD PCP - General Family Practice 11/04/19 04/13/20 Janessa Langley MD PCP - General Internal Medicine 04/14/20 08/08/20 Layla Segal MD [address] [place] [address] PCP - General Internal Medicine 08/09/20 10/19/20 Amparo Pressley MD [address] [place] [address] PCP - General Internal Medicine 10/20/20 12/12/20 Layla Segal MD [address] [place] [address] PCP - General Internal Medicine 12/13/20 01/07/22 [facility], Pcp [address] [address] PCP - General Internal Medicine 01/08/22 Isela Roe MD 300 [facility] 154 [place] [address] Specialist Cardiology 10/28/20 documented as of this encounter
--- OUTSIDE RECORDS SUMMARY | 2024-05-04 16:57 | XMS_ITS | Encounter Summary ---
Author Organization [facility] Address [address] [place] [address] Care Team Providers Care Test Deck Supervisor Name Role Phone Janessa Langley MD Primary Care Provider Mark Thomas MD Primary Care Provider Unav ailable Janessa Langley MD Primary Care Provider Unavaila Layla Juarez MD Primary Care Provider [phone] Amparo Pressley MD Primary Care Provider Un available Isela Roe MD Unavailable [phone] Layla Segal MD Primary Care Provider [phone] [facility] Primary Care Provider Unavailabl e Encounter Details Date Type Department Care Team Description 09/11/2017 Hospital Medical Records [address] [place] [address] Chris Gerber MD Social History Tobacco Use [...] on filedocumented in this encounter Care Teams Test Deck Supervisor Relationship Specialty Start Date End Date Janessa Langley MD PCP - General Internal Medicine 12/02/15 11/03/19 Mark Caraballo MD PCP - General Family Practice 11/04/19 04/13/20 Janessa Langley MD PCP - General Internal Medicine 04/14/20 08/08/20 Layla Segal MD [address] [place] [address] PCP - General Internal Medicine 08/09/20 10/19/20 Amparo Pressley MD [address] [place] [address] PCP - General Internal Medicine 10/20/20 12/12/20 Layla Segal MD [address] [place] [address] PCP - General Internal Medicine 12/13/20 01/07/22 [facility], Pcp [address] [address] PCP - General Internal Medicine 01/08/22 Isela Roe MD 300 [facility] 154 [place] [address] Specialist Cardiology 10/28/20 documented as of this encounter
--- OUTSIDE RECORDS SUMMARY | 2024-05-04 16:57 | XMS_ITS | Encounter Summary ---
Author Organization [facility] Address [address] [place] [address] Care Team Providers Care Rafter Cutting Machine Operator Name Role Phone Janessa Langley MD Primary Care Provider UnavailMark Guadarrama MD Primary Care Provider Unav ailable Janessa Langley MD Primary Care Provider Unavaila Layla Juarez MD Primary Care Provider [phone] Amparo Pressley MD Primary Care Provider Un available Isela Roe MD Unavailable [phone] Layla Segal MD Primary Care Provider [phone] [facility] Primary Care Provider Unavailabl e Encounter Details Date Type Department Care Team Description 06/21/2016 Drill Sharpener Report Medical Records [address] [place] [address] Morales Richards MD [address] [place] [phone] Social History Tobacco Use Types Packs/Day [...] on filedocumented in this encounter Care Teams Rafter Cutting Machine Operator Relationship Specialty Start Date End Date Janessa Langley MD PCP - General Internal Medicine 12/02/15 11/03/19 Mark Caraballo MD PCP - General Family Practice 11/04/19 04/13/20 Janessa Langley MD PCP - General Internal Medicine 04/14/20 08/08/20 Layla Segal MD [address] [place] [address] PCP - General Internal Medicine 08/09/20 10/19/20 Amparo Pressley MD [address] [place] [address] PCP - General Internal Medicine 10/20/20 12/12/20 Layla Segal MD [address] [place] [address] PCP - General Internal Medicine 12/13/20 01/07/22 [facility] [address] [address] PCP - General Internal Medicine 01/08/22 Isela Roe MD [address] [facility] 154 [place] [address] Specialist Cardiology 10/28/20 documented as of this encounter
--- OUTSIDE RECORDS SUMMARY | 2024-05-04 16:57 | XMS_ITS | Encounter Summary ---
Author Organization [facility] Address [address] [place] [address] Care Team Providers Care Slate Picker Name Role Phone Janessa Langley MD Primary Care Provider UnavailMark Guadarrama MD Primary Care Provider Unav ailable Janessa Langley MD Primary Care Provider Unavaila Layla Juarez MD Primary Care Provider [phone] Amparo Pressley MD Primary Care Provider Un available Isela Roe MD Unavailable [phone] Layla Segal MD Primary Care Provider [phone] [facility] Primary Care Provider Unavailabl e Reason for Referral * Radiology Services (Routine) - Closed Specialty Diagnoses / Procedures Referred By Contac t Referred To Contact Radiology Diagnoses Chronic low back pain with bilateral sciatica, unspecified back pain laterality Procedures MRI OF LUMBAR SPINE NO CONTRAST Janessa Langley MD [address] [place] [address] Mri/[address] [address] Referral ID Status Reason Start Date Expiration Date Visits Re quested Visits Authorized [id number] Closed 03/21/2016 05/20/2016 1 1 Reason for Visit * Reason Onset Date Comments Orders Call 03/21/2016 Encounter Details Date Type Department Care Team Description 03/21/2016 Telephone Medicine/Pediatrics - [address] [phone] Janessa Langley MD Orders Call Social History Tobacco Use Types Packs/Day Years Used Date Smoking Tobacco: Former Cigarettes 0.3 Q uit: 05/02/2015 Smokeless Tobacco: Never Alcohol Use Standard Drinks/Week Comments No 0 (1 standard drink = 0.6 oz pur e alcohol) Sex Assigned at Date Recorded Not on file documented as of this encounter Miscellaneous Notes * Telephone Encounter - Janessa Langley MD - 03/21/2016 11:00 AM EST Okay, Im sure Dr Wong will see patient prior to a new MRI, but I have signed it assuming neurosurgery needs a new one * Telephone Encounter - Alicia Winchester RN - 03/21/2016 10:34 AM EST Low back pain-Has followed with Dr Doll in [place]. Reports increased low back pain. Requests referral. Had MRI a few yeats ago. Patient had MRI 05/2015, not recent enough per Drs. Wong and Yudi. Order pended. * Telephone Encounter - Purvi Lopez - 03/21/2016 10:08 AM EST Patient needs an updated MRI from our office to get an appointment with Dr. Bagley's office and Dr. Stern's office. It needs to come from Dr. Tian's office as she is her PCP. documented in this encounter Plan of Treatment Not on file documented as of this encounter Results * MRI OF LUMBAR SPINE NO CONTRAST (03/22/2016 5:18 PM EST) 03/23/2016 1:20 PM EST Impressions [facility]TER[facility] - 03/23/2016 1:28 PM EST IMPRESSION: Mild spondylosis inferiorly. Minimal progression at L4-5 as described. No evidence of nerve root compression. No other significant change compared to 06/08/2015. Narrative WILLIE HERMOSILLO OTHER EXTERNAL - 03/23/2016 1:28 PM EST History: Low back pain with bilateral sciatica. MRI of the lumbar spine: A departmental standard lumbosacral spine MRI protocol was used. FINDINGS: There is limitation of evaluation due to motion. Compared to 06/08/2015 and prior. The distal cord and conus remain normal in configuration and signal characteristics, unchanged. The disc spaces from T9 through L3 remain within normal limits. The neuroforamina and canal remain patent at these levels. L3-4: 3 mm of retrolisthesis of L3 on 4 is unchanged. A very small diffuse posterior disc bulge is unchanged. The spinal canal and neuroforamina remain patent. L4-5: There is minimal facet hypertrophy and disc bulging with mild resulting bilateral lateral recess and minimal neuroforaminal narrowing with slight interval progression. There is no evidence of nerve root compression. L5-S1: Mild bilateral facet hypertrophy is unchanged. There is very mild resulting neuroforaminal narrowing left greater than right. 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 There are no identifiable disc herniations. There have been no other significant interval changes. Procedure Note Kryie Vance MD - 03/23/2016 History: Low back pain with bilateral sciatica. MRI of the lumbar spine: A departmental standard lumbosacral spine MRIprotocol was used. FINDINGS: There is limitation of evaluation due to motion. Compared to06/08/2015 and prior. The distal cord and conus remain normal in configuration and signalcharacteristics, unchanged. The disc spaces from T9 through L3 remain within normal limits. Theneuroforamina and canal remain patent at these levels. L3-4: 3 mm of retrolisthesis of L3 on 4 is unchanged. A very small diffuseposterior disc bulge is unchanged. The spinal canal and neuroforamina remain patent. L4-5: There is minimal facet hypertrophy and disc bulging with mildresulting bilateral lateral recess and minimal neuroforaminal narrowing with slight intervalprogression. There is no evidence of nerve root compression. L5-S1: Mild bilateral facet hypertrophy is unchanged. There is very mildresulting neuroforaminal narrowing left greater than right. 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 There are no identifiable disc herniations. There have been no othersignificant interval changes. IMPRESSION: Mild spondylosis inferiorly. Minimal progression at L4-5 asdescribed. No evidence of nerve root compression. No other significant change compared to06/08/2015. Janessa Langley MD MRI [facility] documented in this encounter Visit Diagnoses Diagnosis Chronic low back pain with bilateral sciatica, unspecified back pain laterality- Primary Chronic low back pain with bilateral sciatica, unspecified back pain laterality documented in this encounter Care Teams Slate Picker Relationship Specialty Start Date End Date Janessa Langley MD PCP - General Internal Medicine 12/02/15 11/03/19 Mark Caraballo MD PCP - General Family Practice 11/04/19 04/13/20 Janessa Langley MD PCP - General Internal Medicine 04/14/20 08/08/20 Layla Segal MD [address] [place] [address] PCP - General Internal Medicine 08/09/20 10/19/20 Amparo Pressley MD [address] [place] [address] PCP - General Internal Medicine 10/20/20 12/12/20 Layla Segal MD [address] [place] [address] PCP - General Internal Medicine 12/13/20 01/07/22 [facility] Pcp [address] [address] PCP - General Internal Medicine 01/08/22 Isela Roe MD [address] [address] Specialist Cardiology 10/28/20 documented as of this encounter
--- OUTSIDE RECORDS SUMMARY | 2024-05-04 16:57 | XMS_ITS | Encounter Summary ---
Author Organization [facility] Address [address] [place] [address] Care Team Providers Care Agriscience Technology Instructor Name Role Phone Amparo Pressley MD Primary Care Provider Un available Mark Alfonso MD Primary Care Provider Unavail able Janessa Langley MD Primary Care Provider Unavaila Mark Valera MD Primary Care Provider Unavail able Janessa Langley MD Primary Care Provider Unavaila Mark Mayo MD Primary Care Provider Unav ailable Janessa Langley MD Primary Care Provider Unavaila Layla Juarez MD Primary Care Provider [phone] Amparo Pressley MD Primary Care Provider Un available Isela Roe MD Unavailable [phone] Layla Segal MD Primary Care Provider [phone] [facility] Primary Care Provider Unavailabl e Encounter Details Date Type Department Care Team Description 06/24/2009 [facility] Medical Records [address] [place] [address] Chandra Garzon MD Social History Tobacco Use Types Packs/Day [...] on filedocumented in this encounter Care Teams Agriscience Technology Instructor Relationship Specialty Start Date End Date Amparo [...] Internal Medicine 04/14/20 08/08/20 Layla Segal MD [address] [place] [address] PCP - General Internal Medicine 08/09/20 10/19/20 Amparo Pressley MD PCP - General Internal Medicine 10/20/20 Layla Segal MD [address] [place] [address] PCP - General Internal Medicine 12/13/20 01/07/22 [facility], Pcp [address] [address] PCP - General Internal Medicine 01/08/22 Isela Roe MD [address] [address] Specialist Cardiology 10/28/20 documented as of this encounter
--- OUTSIDE RECORDS SUMMARY | 2024-05-04 16:57 | XMS_ITS | Encounter Summary ---
Author Organization [facility] Address [address] [place] [address] Care Team Providers Care Ventilation Equipment Tender Name Role Phone Isela Roe MD Unavailable [phone] Layla Segal MD Primary Care Provider [phone] [facility], Pcp Primary Care Provider Unavailabl e Encounter Details Date Type Department Care Team Description 09/05/2021 Orders Only Medical Records [address] [place] [address] Yomi Garcia, PA-C [address] [place] [address] Social History Tobacco Use Types Packs/Day Years [...] suspected to have Coronavirus/COVID-19? No / Unsure 08/31/2021 3:06 PM EDT documented as of this encounter Plan of Treatment Not on file documented as of this encounter Procedures Procedure Name Priority Date/Time Associated Diagnosis Comments OUTSIDE LAB Routine 08/18/2021 documented in this encounter Results * OUTSIDE LAB (08/18/2021) Yomi Garcia PA-C LAB documented in this encounter Visit Diagnoses Not on filedocumented in this encounter Care Teams Ventilation Equipment Tender Relationship Specialty Start Date End Date Layla Segal MD [address] [place] [address] PCP - General Internal Medicine 12/13/20 01/07/[address] [address] PCP - General Internal Medicine 01/08/22 Isela Roe MD [address] [place] [address] Specialist Cardiology 10/28/20 documented as of this encounter
--- OUTSIDE RECORDS SUMMARY | 2024-05-04 16:57 | XMS_ITS | Encounter Summary ---
Author Organization [facility] Address [address] [place] [address] Care Team Providers Care Automotive Mechanical Engineer Name Role Phone Janessa Langley MD Primary Care Provider Mark Thomas MD Primary Care Provider Unav ailable Janessa Langley MD Primary Care Provider Unavaila Layla Juarez MD Primary Care Provider [phone] Amparo Pressley MD Primary Care Provider Un available Isela Roe MD Unavailable [phone] Layla Segal MD Primary Care Provider [phone] [facility] Primary Care Provider Unavailabl e Encounter Details Date Type Department Care Team Description 05/25/2016 [facility] Medical Records [address] [place] [address] Abstract, Provider Social History Tobacco Use Types [...] on filedocumented in this encounter Care Teams Automotive Mechanical Engineer Relationship Specialty Start Date End Date Janessa Langley MD PCP - General Internal Medicine 12/02/15 11/03/19 Mark Caraballo MD PCP - General Family Practice 11/04/19 04/13/20 Janessa Langley MD PCP - General Internal Medicine 04/14/20 08/08/20 Layla Segal MD [address] [place] [address] PCP - General Internal Medicine 08/09/20 10/19/20 Amparo Pressley MD [address] [place] [address] PCP - General Internal Medicine 10/20/20 12/12/20 Layla Segal MD [address] [place] [address] PCP - General Internal Medicine 12/13/20 01/07/22 [facility], Pcp [address] [address] PCP - General Internal Medicine 01/08/22 Isela Roe MD 300 [facility] [address] [place] [address] Specialist Cardiology 10/28/20 documented as of this encounter
--- OUTSIDE RECORDS SUMMARY | 2024-05-04 16:57 | XMS_ITS | Encounter Summary ---
Author Organization [facility] Address [address] [place] [address] Care Team Providers Care Escalator Attendant Name Role Phone Janessa Langley MD Primary Care Provider Mark Thomas MD Primary Care Provider Unav ailable Janessa Langley MD Primary Care Provider Unavaila Layla Juarez MD Primary Care Provider [phone] Amparo Pressley MD Primary Care Provider Un available Isela Roe MD Unavailable [phone] Layla Segal MD Primary Care Provider [phone] [facility] [place] [place] Primary Care Provider Unavailabl e Encounter Details Date Type Department Care Team Description 07/04/2017 Walk In Clinic Visit Medical Records [address] [place] [address] Abstract, Provider Social History Tobacco Use Types [...] on filedocumented in this encounter Care Teams Escalator Attendant Relationship Specialty Start Date End Date Janessa Langley MD PCP - General Internal Medicine 12/02/15 11/03/19 Mark Caraballo MD PCP - General Family Practice 11/04/19 04/13/20 Janessa Langley MD PCP - General Internal Medicine 04/14/20 08/08/20 Layla Segal MD [address] [place] [address] PCP - General Internal Medicine 08/09/20 10/19/20 Amparo Pressley MD [address] [place] [address] PCP - General Internal Medicine 10/20/20 12/12/20 Layla Segal MD [address] [place] [address] PCP - General Internal Medicine 12/13/20 01/07/22 [facility], Pcp [address] [address] PCP - General Internal Medicine 01/08/22 Isela Roe MD 300 [facility] [address] [place] [address] Specialist Cardiology 10/28/20 documented as of this encounter
--- OUTSIDE RECORDS SUMMARY | 2024-05-04 16:57 | XMS_ITS | Encounter Summary ---
Author Organization [facility] Address [address] [place] [address] Care Team Providers Care Mental Telepathist Name Role Phone Janessa Langley MD Primary Care Provider Mark Thomas MD Primary Care Provider Unav ailable Janessa Langley MD Primary Care Provider Unavaila Layla Juarez MD Primary Care Provider [phone] Amparo Pressley MD Primary Care Provider Un available Isela Roe MD Unavailable Layla Segal MD Primary Care Provider [phone] [facility] Primary Care Provider Unavailabl e Encounter Details Date Type Department Care Team Description 05/08/2016 Pt. Non Urgent Medical Question Medicine/Pediatrics - [address] [address] Janessa Langley MD Social History Tobacco Use Types Packs/Day Years Used Date Smoking Tobacco: Former Cigarettes 0.3 Q uit: 05/02/2015 Smokeless Tobacco: Never Alcohol Use Standard Drinks/Week Comments No 0 (1 standard drink = 0.6 oz pur e alcohol) Sex Assigned at Date Recorded Not on file documented as of this encounter Progress Notes * Roxanne MartinezPLillianaNLilliana - 05/08/2016 11:24 AM ESTFrom: Kristen Bui To: Janessa Tian MD Sent: 05/08/2016 11:22 AM EST Subject: large bruise on lower right real Hi I am concerned about the bruise on my right lower real,its not getting better,it has gotten bigger and there us more bkack and blue not green ir yellow color. documented in this encounter Plan of Treatment Not on file documented as of this encounter Visit Diagnoses Not on filedocumented in this encounter Care Teams Mental Telepathist Relationship Specialty Start Date End Date Janessa Langley MD PCP - General Internal Medicine 12/02/15 11/03/19 Mark Caraballo MD PCP - General Family Practice 11/04/19 04/13/20 Janessa Langley MD PCP - General Internal Medicine 04/14/20 08/08/20 Layla Segal MD [address] [place] [address] PCP - General Internal Medicine 08/09/20 10/19/20 Amparo Pressley MD [address] [place] [address] PCP - General Internal Medicine 10/20/20 12/12/20 Layla Segal MD [address] [place] [address] PCP - General Internal Medicine 12/13/20 01/07/22 [facility], Pcp [address] [address] PCP - General Internal Medicine 01/08/22 Isela Roe MD [address] [address] Specialist Cardiology 10/28/20 documented as of this encounter
--- OUTSIDE RECORDS SUMMARY | 2024-05-04 16:57 | XMS_ITS | Encounter Summary ---
Author Organization [facility] Address [address] [place] [address] Care Team Providers Care Mortuary Operations Manager Name Role Phone Isela Roe MD Unavailable [phone] [facility], Pcp Primary Care Provider Unavailabl e Reason for Visit * Reason Comments E-prescribe Rx Request Encounter Details Date Type Department Care Team Description 01/13/2024 Refill Adult Medicine [address] [address] Morales Richards MD [address] [place] [phone] E-prescribe Rx Request Social History Tobacco Use Types Packs/Day Years Used Date Smoking Tobacco: Former Cigarettes 0.3 26 0 04/01/1989 - 05/02/2015 Smokeless Tobacco: Never Alcohol Use Standard Drinks/Week Comments No 0 (1 standard drink = 0.6 oz pur e alcohol) Sex Assigned at Date Recorded Not on file documented as of this encounter Miscellaneous Notes * Telephone Encounter - Gabriella Salmeron - 01/13/2024 11:11 AM EDT Svitlana: 09/19/2022 Nov: lvm to schedule documented in this encounter Plan of Treatment Not on file documented as of this encounter Visit Diagnoses Not on filedocumented in this encounter Care Teams Mortuary Operations Manager Relationship Specialty Start Date End Date [facility], Pcp [address] [place] [address] PCP - General Internal Medicine 01/08/22 Isela Roe MD 300 [facility] [address] [place] [address] Specialist Cardiology 10/28/20 documented as of this encounter
--- OUTSIDE RECORDS SUMMARY | 2024-05-04 16:57 | XMS_ITS | Encounter Summary ---
Author Organization [facility] Address [address] [place] [address] Care Team Providers Care Workday Director Name Role Phone Amparo Pressley MD Primary Care Provider Un available Mark Alfonso MD Primary Care Provider Unavail able Janessa Langley MD Primary Care Provider Unavaila Mark Valera MD Primary Care Provider Unavail able Janessa Langley MD Primary Care Provider Unavaila Mark Mayo MD Primary Care Provider Unav ailable Janessa Langley MD Primary Care Provider Unavaila Layla Juarez MD Primary Care Provider [phone] Amparo Pressley MD Primary Care Provider Un available Isela Roe MD Unavailable [phone] Layla Segal MD Primary Care Provider [phone] [facility], Pcp Primary Care Provider Unavailabl e Encounter Details Date Type Department Care Team Description 01/03/2011 Computational Linguist Report Medical Records [address] [place] [address] Ilan Escobedo Social History Tobacco Use Types [...] on filedocumented in this encounter Care Teams Workday Director Relationship Specialty Start Date End Date Amparo [...] Medicine 04/14/20 08/08/20 Layla Segal MD [address] [place] [address] PCP - General Internal Medicine 08/09/20 10/19/20 Amparo Pressley MD PCP - General Internal Medicine 10/20/20 Layla Segal MD [address] [place] [address] PCP - General Internal Medicine 12/13/20 01/07/22 [facility], Pcp [address] [address] PCP - General Internal Medicine 01/08/22 Isela Roe MD [address] [address] Specialist Cardiology 10/28/20 documented as of this encounter
--- OUTSIDE RECORDS SUMMARY | 2024-05-04 16:57 | XMS_ITS | Encounter Summary ---
Author Organization [facility] Address [address] [place] [address] Care Team Providers Care Shot Hole Shooter Name Role Phone Mark Alfonso MD Primary Care Provider Unavail able Janessa Langley MD Primary Care Provider Unavaila Mark Valera MD Primary Care Provider Unavail able Janessa Langley MD Primary Care Provider Unavaila Mark Mayo MD Primary Care Provider Unav ailable Janessa Langley MD Primary Care Provider Unavaila Layla Juarez MD Primary Care Provider [phone] Amparo Pressley MD Primary Care Provider Un available Isela Roe MD Unavailable [phone] Layla Segal MD Primary Care Provider [phone] [facility], Pcp Primary Care Provider Unavailabl e Encounter Details Date Type Department Care Team Description 12/24/2014 QUALITY CONTROL SUPERVISOR/MassPat Report Medical Records [address] [place] [address] Abstract, Provider Social History Tobacco Use Types [...] on filedocumented in this encounter Care Teams Shot Hole Shooter Relationship Specialty Start Date End Date Mark [...] Internal Medicine 04/14/20 08/08/20 Layla Segal MD [address] [place] [address] PCP - General Internal Medicine 08/09/20 10/19/20 Amparo Pressley MD [address] [place] [address] PCP - General Internal Medicine 10/20/20 12/12/20 Layla Segal MD [address] [place] [address] PCP - General Internal Medicine 12/13/20 01/07/22 [facility], Pcp [address] [address] PCP - General Internal Medicine 01/08/22 Isela Roe MD [address] [address] Specialist Cardiology 10/28/20 documented as of this encounter
--- OUTSIDE RECORDS SUMMARY | 2024-05-04 16:57 | XMS_ITS | Encounter Summary ---
Author Organization [facility] Address [address] [place] [address] Care Team Providers Care Granulizing Machine Operator Name Role Phone Janessa Langley MD Primary Care Provider Mark Thomas MD Primary Care Provider Unav ailable Janessa Langley MD Primary Care Provider Unavaila Layla Juarez MD Primary Care Provider [phone] Amparo Pressley MD Primary Care Provider Un available Isela Roe MD Unavailable [phone] Layla Segal MD Primary Care Provider [phone] [facility] Primary Care Provider Unavailabl e Reason for Visit * Reason Onset Date Comments Medication 04/23/2016 Encounter Details Date Type Department Care Team Description 04/23/2016 Telephone Medicine/Pediatrics - [address] [id number] Janessa Langley MD Medication Social History Tobacco Use Types Packs/Day Years Used Date Smoking Tobacco: Former Cigarettes 0.3 Q uit: 05/02/2015 Smokeless Tobacco: Never Alcohol Use Standard Drinks/Week Comments No 0 (1 standard drink = 0.6 oz pur e alcohol) Sex Assigned at Date Recorded Not on file documented as of this encounter Miscellaneous Notes * Telephone Encounter - Roxanne Kidd L.P.N. - 04/23/2016 11:32 AM EST I booked her for tomorrow there are no apt for today She marcial go to er as needed * Telephone Encounter - Qi Hugo P.A.-C. - 04/23/2016 11:16 AM EST She should be seen for ER f/u today * Telephone Encounter - Roxanne Kidd L.P.N. - 04/23/2016 10:23 AM EST Pt states she is still wheezing has a cough she states she is a little better Pt states she no swelling in her legs Had a temp yesterday and last night 102. 103 last night Had diarrhea yesterday Was sent to er last week please advise * Telephone Encounter - Purvi Lopez - 04/23/2016 10:20 AM EST Taken from here to hospital last Monday 04/17 and given antibiotics at the hospital. Don't seem to be work can she get something better please? documented in this encounter Plan of Treatment Not on file documented as of this encounter Visit Diagnoses Not on filedocumented in this encounter Care Teams Granulizing Machine Operator Relationship Specialty Start Date End Date Janessa Langley MD PCP - General Internal Medicine 12/02/15 11/03/19 Mark Caraballo MD PCP - General Family Practice 11/04/19 04/13/20 Janessa Langley MD PCP - General Internal Medicine 04/14/20 08/08/20 Layla Segal MD [address] [place] [address] PCP - General Internal Medicine 08/09/20 10/19/20 Amparo Pressley MD [address] [place] [address] PCP - General Internal Medicine 10/20/20 12/12/20 Layla Segal MD 4 [place] [address] PCP - General Internal Medicine 12/13/20 01/07/22 [facility], Pcp 300 [facility] [address] [place] [address] PCP - General Internal Medicine 01/08/22 Isela Roe MD 300 [facility] [address] [place] [address] Specialist Cardiology 10/28/20 documented as of this encounter
--- OUTSIDE RECORDS SUMMARY | 2024-05-04 16:57 | XMS_ITS | Encounter Summary ---
Author Organization [facility] Address [address] [place] [address] Care Team Providers Care Auto Electrician Name Role Phone Janessa Langley MD Primary Care Provider Mark Thomas MD Primary Care Provider Unav ailable Janessa Langley MD Primary Care Provider Unavaila Layla Juarez MD Primary Care Provider [phone] Amparo Pressley MD Primary Care Provider Un available Isela Roe MD Unavailable Layla Segal MD Primary Care Provider [phone] [facility] Primary Care Provider Unavailabl e Encounter Details Date Type Department Care Team Description 09/13/2017 Release of Information Medical Records [address] [place] [address] Abstract, Provider Social History Tobacco Use Types [...] on filedocumented in this encounter Care Teams Auto Electrician Relationship Specialty Start Date End Date Janessa Langley MD PCP - General Internal Medicine 12/02/15 11/03/19 Mark Caraballo MD PCP - General Family Practice 11/04/19 04/13/20 Janessa Langley MD PCP - General Internal Medicine 04/14/20 08/08/20 Layla Segal MD [address] [place] [address] PCP - General Internal Medicine 08/09/20 10/19/20 Amparo Pressley MD [address] [place] [address] PCP - General Internal Medicine 10/20/20 12/12/20 Layla Segal MD [address] [place] [address] PCP - General Internal Medicine 12/13/20 01/07/22 [facility], Pcp 300 [facility] [address] [place] [address] PCP - General Internal Medicine 01/08/22 Isela Roe MD 300 [facility] [address] [place] [address] Specialist Cardiology 10/28/20 documented as of this encounter
--- OUTSIDE RECORDS SUMMARY | 2024-05-04 16:57 | XMS_ITS | Encounter Summary ---
Author Organization [facility] Address [address] [place] [address] Care Team Providers Care Grease Remover Name Role Phone Isela Roe MD Unavailable [phone] Layla Segal MD Primary Care Provider [phone] [facility], Pcp Primary Care Provider Unavailabl e Encounter Details Date Type Department Care Team Description 11/17/2021 Orders Only Medical Records 4 [place] [address] She Ornelas PA-C 4 [place] [address] Social History Tobacco Use Types Packs/Day Years [...] Date/Time Associated Diagnosis Comments OUTSIDE LAB Routine 11/15/2021 documented in this encounter Results * OUTSIDE LAB (11/15/2021) She Ornelas PA-C LAB documented in this encounter Visit Diagnoses Not on filedocumented in this encounter Care Teams Grease Remover Relationship Specialty Start Date End Date Layla Segal MD [address] [place] [address] PCP - General Internal Medicine 12/13/20 01/07/22 [facility], Pcp [address] [place] [address] PCP - General Internal Medicine 01/08/22 Isela Roe MD [address] [address] Specialist Cardiology 10/28/20 documented as of this encounter
--- OUTSIDE RECORDS SUMMARY | 2024-05-04 16:57 | XMS_ITS | Encounter Summary ---
Author Organization [facility] Address [address] [place] [address] Care Team Providers Care Manager Local Name Role Phone Janessa Langley MD Primary Care Provider UnavailMark Guadarrama MD Primary Care Provider Unav ailable Janessa Langley MD Primary Care Provider Unavaila Layla Juarez MD Primary Care Provider [phone] Amparo Pressley MD Primary Care Provider Un available Isela Roe MD Unavailable [phone] Layla Segal MD Primary Care Provider [phone] [facility] Primary Care Provider Unavailabl e Encounter Details Date Type Department Care Team Description 06/11/2017 Refill Medicine/Pediatrics - [address] [phone] Janessa Langley MD Social History Tobacco Use Types Packs/Day Years Used Date Smoking Tobacco: Former Cigarettes 0.3 Q uit: 05/02/2015 Smokeless Tobacco: Never Alcohol Use Standard Drinks/Week Comments No 0 (1 standard drink = 0.6 oz pur e alcohol) Sex Assigned at Date Recorded Not on file documented as of this encounter Miscellaneous Notes * Telephone Encounter - Emily Gardner M.A. - 06/11/2017 1:23 PM EDT Rx faxed to pharmacy. * Telephone Encounter - Janessa Langley MD - 06/11/2017 12:10 PM EDT Please add to office note for 08/06 to change CSC - if not half hour please book 1/2 hour * Telephone Encounter - Gladis oSlano M.A. - 06/11/2017 11:41 AM EDT Please review. Pt on CSC for Vicodin. Last RX Ultram 05/07/17 #30. Last ov 05/07/17 and scheduled for 08/06/17. * Telephone Encounter - Gladis Solano M.A. - 06/11/2017 11:32 AM EDTFrom: Kristen Bui To: Janessa Langley MD Sent: 06/11/2017 11:03 AM EDT Subject: Medication Renewal Request Original authorizing provider: MD Kristen Leung would like a refill of the following medications: tramadol (ULTRAM) 50 MG tablet [Janessa Tian MD] benzonatate (TESSALON) 100 MG capsule [Janessa Tian MD] Preferred pharmacy: [facility] [address] [place] [address] Comment: documented in this encounter Plan of Treatment Not on file documented as of this encounter Visit Diagnoses Diagnosis Left hip pain Pain in joint, pelvic region and thigh Pubic bone pain Disorder of bone and cartilage, unspecified documented in this encounter Care Teams Manager Local Relationship Specialty Start Date End Date Janessa Langley MD PCP - General Internal Medicine 12/02/15 11/03/19 Mark Caraballo MD PCP - General Family Practice 11/04/19 04/13/20 Janessa Langley MD PCP - General Internal Medicine 04/14/20 08/08/20 Layla Segal MD [address] [place] [address] PCP - General Internal Medicine 08/09/20 10/19/20 Amparo Pressley MD [address] [place] [address] PCP - General Internal Medicine 10/20/20 12/12/20 Layla Segal MD [address] [place] [address] PCP - General Internal Medicine 12/13/20 01/07/22 [facility], Pcp [address] [address] PCP - General Internal Medicine 01/08/22 Isela Roe MD 300 [facility] [address] [place] [address] Specialist Cardiology 10/28/20 documented as of this encounter
--- OUTSIDE RECORDS SUMMARY | 2024-05-04 16:58 | XMS_ITS | Encounter Summary ---
Author Organization [facility] Address [address] [place] [address] Care Team Providers Care Anglesmith Helper Name Role Phone Mark Alfonso MD Primary Care Provider Unavail able Janessa Langley MD Primary Care Provider Unavaila Mark Valera MD Primary Care Provider Unavail able Janessa Langley MD Primary Care Provider Unavaila Mark Mayo MD Primary Care Provider Unav ailable Janessa Langley MD Primary Care Provider Unavaila Layla Juarez MD Primary Care Provider [phone] Amparo Pressley MD Primary Care Provider Un available Isela Roe MD Unavailable [phone] Layla Segal MD Primary Care Provider [phone] [facility], Pcp Primary Care Provider Unavailabl e Encounter Details Date Type Department Care Team Description 11/05/2014 Telephone Adult [address] [address] Mark Alfonso MD Social History Tobacco Use Types Packs/Day Years Used Date Smoking Tobacco: Former Cigarettes 0.3 Q uit: 03/01/2011 Smokeless Tobacco: Never Alcohol Use Standard Drinks/Week Comments No 0 (1 standard drink = 0.6 oz pur e alcohol) Sex Assigned at Date Recorded Not on file documented as of this encounter Miscellaneous Notes * Telephone Encounter - Cynthia Woody L.P.N. - 11/05/2014 11:28 AM EDT Left message for Dr. Panda's officet to call [phone]. Also have requested that they fax us the office note to [phone] Thanks * Telephone Encounter - Allison Mcclellan - 11/05/2014 11:[address] Chow office is calling back * Telephone Encounter - Cynthia Woody L.P.N. - 11/05/2014 10:27 AM EDT Left message for Dr. Panda's office to call back at [phone] * Telephone Encounter - Mark Alfonso MD - 11/05/2014 10:14 AM EDT Please get Dr. Sherry Panda's last note, documented in this encounter Plan of Treatment Not on file documented as of this encounter Visit Diagnoses Not on filedocumented in this encounter Care Teams Anglesmith Helper Relationship Specialty Start Date End Date Mark [...] Medicine 04/14/20 08/08/20 Layla Segal MD [address] [place] [address] PCP - General Internal Medicine 08/09/20 10/19/20 Amparo Pressley MD [address] [place] [address] PCP - General Internal Medicine 10/20/20 12/12/20 Layla Segal MD [address] [place] [address] PCP - General Internal Medicine 12/13/20 01/07/22 [facility], Pcp [address] [address] PCP - General Internal Medicine 01/08/22 Isela Roe MD 300 [facility] [address] [place] [address] Specialist Cardiology 10/28/20 documented as of this encounter
--- OUTSIDE RECORDS SUMMARY | 2024-05-04 16:58 | XMS_ITS | Encounter Summary ---
Author Organization [facility] Address [address] [place] [address] Care Team Providers Care Toll Testboard Worker Name Role Phone Mark Alfonso MD Primary Care Provider Unavail able Janessa Langley MD Primary Care Provider Unavaila Mark Valera MD Primary Care Provider Unavail able Janessa Langley MD Primary Care Provider Unavaila Mark Mayo MD Primary Care Provider Unav ailable Janessa Langley MD Primary Care Provider Unavaila Layla Juarez MD Primary Care Provider [phone] Amparo Pressley MD Primary Care Provider Un available Isela Roe MD Unavailable [phone] Layla Segal MD Primary Care Provider [phone] [facility], Pcp Primary Care Provider Unavailabl e Encounter Details Date Type Department Care Team Description 05/28/2014 Developer Analyst Report Medical Records [address] [place] [address] Chris Gerber MD Social History Tobacco Use [...] on filedocumented in this encounter Care Teams Toll Testboard Worker Relationship Specialty Start Date End Date Mark [...] Internal Medicine 04/14/20 08/08/20 Layla Segal MD [address] [place] [address] PCP - General Internal Medicine 08/09/20 10/19/20 Amparo Pressley MD [address] [place] [address] PCP - General Internal Medicine 10/20/20 12/12/20 Layla Segal MD [address] [place] [address] PCP - General Internal Medicine 12/13/20 01/07/22 [facility], Pcp [address] [address] PCP - General Internal Medicine 01/08/22 Isela Roe MD [address] [address] Specialist Cardiology 10/28/20 documented as of this encounter
--- OUTSIDE RECORDS SUMMARY | 2024-05-04 16:58 | XMS_ITS | Encounter Summary ---
Author Organization [facility] Address [address] [place] [address] Care Team Providers Care Nutrition Worker Name Role Phone Janessa Langley MD Primary Care Provider UnavailMark Guadarrama MD Primary Care Provider Unav ailable Janessa Langley MD Primary Care Provider Unavaila Layla Juarez MD Primary Care Provider [phone] Amparo Pressley MD Primary Care Provider Un available Isela Roe MD Unavailable [phone] Layla Segal MD Primary Care Provider [phone] [facility], [facility] Primary Care Provider Unavailabl e Encounter Details Date Type Department Care Team Description 11/23/2017 Pt. Non Urgent Medic al Question Physiatry - [address] [address] Christopher Wong DO Social History Tobacco Use Types Packs/Day Years Used Date Smoking Tobacco: Former Cigarettes 0.3 Q uit: 05/02/2015 Smokeless Tobacco: Never Alcohol Use Standard Drinks/Week Comments No 0 (1 standard drink = 0.6 oz pur e alcohol) Sex Assigned at Date Recorded Not on file documented as of this encounter Progress Notes * Yecenia Rubin L.P.N. 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 If I need to get an MRI,I go to the open one at [facility]. The pain is progressively getting wore and I am at a end on what to do,Its been one year and two months of being in this . My left leg when I stand or sit is off the floor about 2or more inches off the floor. Please let me know if and what there's is that can get me in the right track to either to minimize or control the pain. Thank you Kristen Bui documented in this encounter Plan of Treatment Not on file documented as of this encounter Visit Diagnoses Not on filedocumented in this encounter Care Teams Nutrition Worker Relationship Specialty Start Date End Date Janessa Langley MD PCP - General Internal Medicine 12/02/15 11/03/19 Mark Caraballo MD PCP - General Family Practice 11/04/19 04/13/20 Janessa Langley MD PCP - General Internal Medicine 04/14/20 08/08/20 Layla Segal MD [address] [place] [address] PCP - General Internal Medicine 08/09/20 10/19/20 Amparo Pressley MD [address] [place] [address] PCP - General Internal Medicine 10/20/20 12/12/20 Layla Segal MD [address] [place] [address] PCP - General Internal Medicine 12/13/20 01/07/22 [facility], Pcp [address] [address] PCP - General Internal Medicine 01/08/22 Isela Roe MD [address] [address] Specialist Cardiology 10/28/20 documented as of this encounter
--- OUTSIDE RECORDS SUMMARY | 2024-05-04 16:58 | XMS_ITS | Encounter Summary ---
Author Organization [facility] Address [address] [place] [address] Care Team Providers Care Aircraft Sales Representative Name Role Phone Janessa Langley MD Primary Care Provider Mark Thomas MD Primary Care Provider Unav ailable Janessa Langley MD Primary Care Provider Unavaila Layla Juarez MD Primary Care Provider [phone] Amparo Pressley MD Primary Care Provider Un available Isela Roe MD Unavailable [phone] Layla Segal MD Primary Care Provider [phone] [facility] Primary Care Provider Unavailabl e Encounter Details Date Type Department Care Team Description 08/03/2016 Geospatial Systems Integrator Report Medical Records [address] [place] [id number] [place] [address] Social History Tobacco Use Types Packs/Day Years [...] on filedocumented in this encounter Care Teams Aircraft Sales Representative Relationship Specialty Start Date End Date Janessa Langley MD PCP - General Internal Medicine 12/02/15 11/03/19 Mark Caraballo MD PCP - General Family Practice 11/04/19 04/13/20 Janessa Langley MD PCP - General Internal Medicine 04/14/20 08/08/20 Layla Segal MD [address] [place] [address] PCP - General Internal Medicine 08/09/20 10/19/20 Amparo Pressley MD [address] [place] [address] PCP - General Internal Medicine 10/20/20 12/12/20 Layla Segal MD [address] [place] [address] PCP - General Internal Medicine 12/13/20 01/07/22 [facility], Pcp [address] [address] PCP - General Internal Medicine 01/08/22 Isela Roe MD 300 [facility] [address] [place] [address] Specialist Cardiology 10/28/20 documented as of this encounter
--- OUTSIDE RECORDS SUMMARY | 2024-05-04 16:58 | XMS_ITS | Encounter Summary ---
Author Organization [facility] Address [address] [place] [address] Care Team Providers Care Hydraulic Modeling Engineer Name Role Phone Janessa Langley MD Primary Care Provider UnavailMark Guadarrama MD Primary Care Provider Unav ailable Janessa Langley MD Primary Care Provider Unavaila Layla Juarez MD Primary Care Provider [phone] Amparo Pressley MD Primary Care Provider Un available Isela Roe MD Unavailable [phone] Layla Segal MD Primary Care Provider [phone] [facility], [facility] Primary Care Provider Unavailabl e Reason for Visit * Reason Comments E-prescribe Rx Request Encounter Details Date Type Department Care Team Description 01/30/2018 Refill Medicine/Pediatrics - [address] [address] Janessa Langley MD E-prescribe Rx Request Social History Tobacco Use Types Packs/Day Years Used Date Smoking Tobacco: Former Cigarettes 0.3 Q uit: 05/02/2015 Smokeless Tobacco: Never Alcohol Use Standard Drinks/Week Comments No 0 (1 standard drink = 0.6 oz pur e alcohol) Sex Assigned at Date Recorded Not on file documented as of this encounter Miscellaneous Notes * Telephone Encounter - Gladis Solano M.A. - 01/30/2018 2:21 PM EDT Last ov 01/01/18, med not addressed. Pended with no refill per protocol. * Telephone Encounter - Vira Len - 01/30/2018 2:19 PM EDT Patient would like script to be: E-PRESCRIBED/FAXED TO PHARMACY WHEN WAS THE PATIENT'S LAST APPOINTMENT IN ADULT MEDICINE? 01/01/18 WHEN WAS THE LAST TIME THE PATIENT SAW THEIR PCP? 12/24/17 Does patient have an upcoming appointment? no (THE MEDICATION REQUESTED IS ON THE MED [...] N/A Patients current insurance carrier is: Payor: [employer] FFS / Plan: [employer] / Product Type: MEDICAID RISK documented in this encounter Plan of Treatment Not on file documented as of this encounter Visit Diagnoses Diagnosis Mild intermittent asthma without complication Unspecified asthma documented in this encounter Care Teams Hydraulic Modeling Engineer Relationship Specialty Start Date End Date Janessa Langley MD PCP - General Internal Medicine 12/02/15 11/03/19 Mark Caraballo MD PCP - General Family Practice 11/04/19 04/13/20 Janessa Langley MD PCP - General Internal Medicine 04/14/20 08/08/20 Layla Segal MD [address] [place] [address] PCP - General Internal Medicine 08/09/20 10/19/20 Amparo Pressley MD [address] [place] [address] PCP - General Internal Medicine 10/20/20 12/12/20 Layla Segal MD [address] [place] [address] PCP - General Internal Medicine 12/13/20 01/07/22 [facility], [facility] [address] [address] PCP - General Internal Medicine 01/08/22 Isela Roe MD [address] [address] Specialist Cardiology 10/28/20 documented as of this encounter
--- OUTSIDE RECORDS SUMMARY | 2024-05-04 16:58 | XMS_ITS | Encounter Summary ---
Author Organization [facility] Address [address] [place] [address] Care Team Providers Care Supervisor Lending Activities Name Role Phone Mark Alfonso MD Primary Care Provider Unavail able Janessa Langley MD Primary Care Provider Unavaila Mark Valera MD Primary Care Provider Unavail able Janessa Langley MD Primary Care Provider Unavaila Mark Mayo MD Primary Care Provider Unav ailable Janessa Langley MD Primary Care Provider Unavaila Layla Juarez MD Primary Care Provider [phone] Amparo Pressley MD Primary Care Provider Un available Isela Roe MD Unavailable [phone] Layla Segal MD Primary Care Provider [phone] [facility], Pcp Primary Care Provider Unavailabl e Encounter Details Date Type Department Care Team Description 10/04/2014 Call Taker Report Medical Records [address] [place] [id number] [place] [address] Social History Tobacco Use Types Packs/Day Years [...] on filedocumented in this encounter Care Teams Supervisor Lending Activities Relationship Specialty Start Date End Date Mark [...] Medicine 04/14/20 08/08/20 Layla Segal MD [address] [place] [address] PCP - General Internal Medicine 08/09/20 10/19/20 Amparo Pressley MD [address] [place] [address] PCP - General Internal Medicine 10/20/20 12/12/20 Layla Segal MD [address] [place] [address] PCP - General Internal Medicine 12/13/20 01/07/22 [facility], Pcp [address] [address] PCP - General Internal Medicine 01/08/22 Isela Roe MD [address] [address] Specialist Cardiology 10/28/20 documented as of this encounter
--- OUTSIDE RECORDS SUMMARY | 2024-05-04 16:58 | XMS_ITS | Encounter Summary ---
Author Organization [facility] Address [address] [place] [address] Care Team Providers Care Board Saw Runner Name Role Phone Janessa Langley MD Primary Care Provider Mark Thomas MD Primary Care Provider Unav ailable Janessa Langley MD Primary Care Provider Unavaila Layla Juarez MD Primary Care Provider [phone] Amparo Pressley MD Primary Care Provider Un available Isela Roe MD Unavailable [phone] Layla Segal MD Primary Care Provider [phone] [facility] Primary Care Provider Unavailabl e Encounter Details Date Type Department Care Team Description 01/15/2018 Release of Information Medical Records [address] [place] [id number] Abstract, Provider Social History Tobacco Use Types [...] on filedocumented in this encounter Care Teams Board Saw Runner Relationship Specialty Start Date End Date Janessa Langley MD PCP - General Internal Medicine 12/02/15 11/03/19 Mark Caraballo MD PCP - General Family Practice 11/04/19 04/13/20 Janessa Langley MD PCP - General Internal Medicine 04/14/20 08/08/20 Layla Segal MD [address] [place] [address] PCP - General Internal Medicine 08/09/20 10/19/20 Amparo Pressley MD [address] [place] [address] PCP - General Internal Medicine 10/20/20 12/12/20 Layla Segal MD [address] [place] [address] PCP - General Internal Medicine 12/13/20 01/07/22 [facility], Pcp 300 [facility] [address] [place] [address] PCP - General Internal Medicine 01/08/22 Isela Roe MD 300 [facility] [address] [place] [address] Specialist Cardiology 10/28/20 documented as of this encounter
--- OUTSIDE RECORDS SUMMARY | 2024-05-04 16:58 | XMS_ITS | Encounter Summary ---
Author [facility] Address [address] [place] [address] Care Team Providers Care Supervisor [employer] Elements Name Role Phone Janessa Langley MD Primary Care Provider UnavailMark Guadarrama MD Primary Care Provider Unav ailable Janessa Langley MD Primary Care Provider Unavaila Layla Juarez MD Primary Care Provider [phone] Amparo Pressley MD Primary Care Provider Un available Isela Roe MD Unavailable [phone] Layla Segal MD Primary Care Provider [phone] [facility] Primary Care Provider Unavailabl e Reason for Visit * Reason Comments E-prescribe Rx Request Encounter Details Date Type Department Care Team Description 11/02/2019 Refill Pulmonology - [facility] [address] [facility] [address] [place] [address] Morales Richards MD [address] [place] [address] E-prescribe Rx Request Social History Tobacco Use Types Packs/Day Years Used Date Smoking Tobacco: Former Cigarettes 0.3 26 0 04/01/1989 - 05/02/2015 Smokeless Tobacco: Never Alcohol Use Standard Drinks/Week Comments No 0 (1 standard drink = 0.6 oz pur e alcohol) Sex Assigned at Date Recorded Not on file documented as of this encounter Miscellaneous Notes * Telephone Encounter - Gela Fuentes - 11/03/2019 9:16 AM EDT Svitlana 07/15/2018 Next 11/04/2019 30 mae cook documented in this encounter Plan of Treatment Not on file documented as of this encounter Visit Diagnoses Diagnosis Uncomplicated asthma, unspecified asthma severity, unspecified whether persistent documented in this encounter Care Teams Supervisor [employer] Relationship Specialty Start Date End Date Janessa Langley MD PCP - General Internal Medicine 12/02/15 11/03/19 Mark Caraballo MD PCP - General Family Practice 11/04/19 04/13/20 Janessa Langley MD PCP - General Internal Medicine 04/14/20 08/08/20 Layla Segal MD [address] [place] [address] PCP - General Internal Medicine 08/09/20 10/19/20 Amparo Pressley MD [address] [place] [address] PCP - General Internal Medicine 10/20/20 12/12/20 Layla Segal MD [address] [place] [address] PCP - General Internal Medicine 12/13/20 01/07/22 [facility], Pcp [address] [address] PCP - General Internal Medicine 01/08/22 Isela Roe MD [address] [address] Specialist Cardiology 10/28/20 documented as of this encounter
--- OUTSIDE RECORDS SUMMARY | 2024-05-04 16:58 | XMS_ITS | Encounter Summary ---
Author [facility] Address [address] [place] [address] Care Team Providers Care Vending Machine Filler Name Role Phone Janessa Langley MD Primary Care Provider UnavailMark Guadarrama MD Primary Care Provider Unav ailable Janessa Langley MD Primary Care Provider Unavaila Layla Juarez MD Primary Care Provider [phone] Amparo Pressley MD Primary Care Provider Un available Isela Roe MD Unavailable Layla Segal MD Primary Care Provider [phone] [facility], [facility] Primary Care Provider Unavailabl e Encounter Details Date Type Department Care Team Description 08/19/2019 Hospital Medical Records [address] [place] [address] Social History Tobacco Use Types Packs/Day Years [...] Date/Time Associated Diagnosis Comments OUTSIDE CT Routine 08/19/[address] Routine 08/19/2019 OUTSIDE PLAIN FILM Routine 08/19/2019 documented in this encounter Results * OUTSIDE PLAIN FILM (08/19/2019) Provider Abstract RADIOLOGY * OUTSIDE CT (08/19/2019) Provider Abstract RADIOLOGY * OUTSIDE CT (08/19/2019) Provider Abstract RADIOLOGY documented in this encounter Visit Diagnoses Not on filedocumented in this encounter Care Teams Vending Machine Filler Relationship Specialty Start Date End Date Janessa Langley MD PCP - General Internal Medicine 12/02/15 11/03/19 Mark Caraballo MD PCP - General Family Practice 11/04/19 04/13/20 Janessa Langley MD PCP - General Internal Medicine 04/14/20 08/08/20 Layla Segal MD [address] [place] [address] PCP - General Internal Medicine 08/09/20 10/19/20 Amparo Pressley MD [address] [place] [address] PCP - General Internal Medicine 10/20/20 12/12/20 Layla Segal MD [address] [place] [address] PCP - General Internal Medicine 12/13/20 01/07/22 [facility], Pcp [address] [address] PCP - General Internal Medicine 01/08/22 Isela Roe MD 300 [facility] [address] [place] [address] Specialist Cardiology 10/28/20 documented as of this encounter
--- OUTSIDE RECORDS SUMMARY | 2024-05-04 16:58 | XMS_ITS | Encounter Summary ---
Author Organization [facility] Address [address] [place] [address] Care Team Providers Care Nut Sorter Name Role Phone Mark Alfonso MD Primary Care Provider Unavail able Janessa Langley MD Primary Care Provider Unavaila Mark Valera MD Primary Care Provider Unavail able Janessa Langley MD Primary Care Provider Unavaila Mark Mayo MD Primary Care Provider Unav ailable Janessa Langley MD Primary Care Provider Unavaila Layla Juarez MD Primary Care Provider [phone] Amparo Pressley MD Primary Care Provider Un available Isela Roe MD Unavailable [phone] Layla Segal MD Primary Care Provider [phone] [facility], Pcp Primary Care Provider Unavailabl e Reason for Visit * Reason Onset Date Comments refill request 11/11/2014 Encounter Details Date Type Department Care Team Description 11/11/2014 Refill Adult Medicine [address] [address] Mark Alfonso MD refill request Social History Tobacco Use Types Packs/Day Years Used Date Smoking Tobacco: Former Cigarettes 0.3 Q uit: 03/01/2011 Smokeless Tobacco: Never Alcohol Use Standard Drinks/Week Comments No 0 (1 standard drink = 0.6 oz pur e alcohol) Sex Assigned at Date Recorded Not on file documented as of this encounter Miscellaneous Notes * Telephone Encounter - Linda Gonzalez M.A. - 11/11/2014 9:30 AM EDT Pt is due tomorrow for medication, please have her call tomorrow Msg left * Telephone Encounter - Lorena Bell - 11/11/2014 9:09 AM EDT Patient would like script to be: E-PRESCRIBED/FAXED TO PHARMACY WHEN WAS THE PATIENT'S LAST APPOINTMENT IN ADULT MEDICINE? 11/05/2014 WHEN WAS THE LAST TIME THE PATIENT SAW THEIR PCP? Same as above Does patient have an upcoming appointment? Yes 05/10/2015 (THE MEDICATION REQUESTED IS ON THE MED LIST ABOVE) All of the medications requested were on the CURRENT MEDS list Did you check the Pharmacy information above?: YES Patient wants: 30 -day supply Is this a mail order prescription request ? NO Patients current insurance carrier is: Payor: [facility] / Plan: FFS HMO $0 [place] [id number] / Product Type: MEDICAID RISK documented in this encounter Plan of Treatment Not on file documented as of this encounter Visit Diagnoses Not on filedocumented in this encounter Care Teams Nut Sorter Relationship Specialty Start Date End Date [...] Internal Medicine 04/14/20 08/08/20 Layla Segal MD [address] [place] [address] PCP - General Internal Medicine 08/09/20 10/19/20 Amparo Pressley MD [address] [place] [address] PCP - General Internal Medicine 10/20/20 12/12/20 Layla Segal MD [address] [place] [address] PCP - General Internal Medicine 12/13/20 01/07/22 [facility], Pcp [address] [address] PCP - General Internal Medicine 01/08/22 Isela Roe MD 300 [facility] [address] [place] [address] Specialist Cardiology 10/28/20 documented as of this encounter
--- OUTSIDE RECORDS SUMMARY | 2024-05-04 16:58 | XMS_ITS | Encounter Summary ---
Author Organization [facility] Address [address] [place] [address] Care Team Providers Care Bank Courier Name Role Phone Mark Caraballo MD Primary Care Provider Janessa Colunga MD Primary Care Provider Unavaila [facility] Layla Segal MD Primary Care Provider [phone] Amparo Pressley MD Primary Care Provider Un available Isela Roe MD Unavailable Layla Segal MD Primary Care Provider [phone] [facility] Primary Care Provider [facility] Encounter Details Date Type Department Care Team Description 11/30/2019 Optomechanical Engineer Report Medical Records [address] [place] [address] Randolph Whitlock MD Social History Tobacco Use Types Packs/Day [...] on filedocumented in this encounter Care Teams Bank Courier Relationship Specialty Start Date End Date Mark Caraballo MD PCP - General Family Practice 11/04/19 04/13/20 Janessa Langley MD PCP - General Internal Medicine 04/14/20 08/08/20 Layla Segal MD [address] [place] [address] PCP - General Internal Medicine 08/09/20 10/19/20 Amparo Pressley MD [address] [place] [address] PCP - General Internal Medicine 10/20/20 12/12/20 Layla Segal MD [address] [place] [address] PCP - General Internal Medicine 12/13/20 01/07/22 [facility], Pcp [address] [address] PCP - General Internal Medicine 01/08/22 Isela Roe MD 300 [facility] [address] [place] [address] Specialist Cardiology 10/28/20 documented as of this encounter
--- OUTSIDE RECORDS SUMMARY | 2024-05-04 16:58 | XMS_ITS | Encounter Summary ---
Author Organization [facility] Address [address] [place] [address] Care Team Providers Care Coffee Attendant Name Role Phone Mark Caraballo MD Primary Care Provider Janessa Colunga MD Primary Care Provider Unavaila ble Layla Segal MD Primary Care Provider [phone] Amparo Pressley MD Primary Care Provider Un available Isela Roe MD Unavailable [phone] Layla Segal MD Primary Care Provider [phone] [facility] Primary Care Provider Unavailabl e Encounter Details Date Type Department Care Team Description 03/08/2020 SCAN Medical Records [address] [place] [address] Randolph Whitlock MD Social History Tobacco Use [...] Name Priority Date/Time Associated Diagnosis Comments OUTSIDE MRI/MRA Routine 03/08/2020 documented in this encounter Results * OUTSIDE MRI/MRA (03/08/2020) Provider Abstract RADIOLOGY documented in this encounter Visit Diagnoses Not on filedocumented in this encounter Care Teams Coffee Attendant Relationship Specialty Start Date End Date Mark Caraballo MD PCP - General Family Practice 11/04/19 04/13/20 Janessa Langley MD PCP - General Internal Medicine 04/14/20 08/08/20 Layla Segal MD [address] [place] [address] PCP - General Internal Medicine 08/09/20 10/19/20 Amparo Pressley MD [address] [place] [address] PCP - General Internal Medicine 10/20/20 12/12/20 Layla Segal MD [address] [place] [address] PCP - General Internal Medicine 12/13/20 01/07/22 [facility] [address] [address] PCP - General Internal Medicine 01/08/22 Isela Roe MD 300 [facility] [address] [place] [address] Specialist Cardiology 10/28/20 documented as of this encounter
--- OUTSIDE RECORDS SUMMARY | 2024-05-04 16:58 | XMS_ITS | Encounter Summary ---
[facility] Address [address] [place] [address] Care Team Providers Care Career Development Specialist Name Role Phone Janessa Langley MD Primary Care Provider UnavailMark Guadarrama MD Primary Care Provider Unav ailable Janessa Langley MD Primary Care Provider Unavaila Layla Juarez MD Primary Care Provider [phone] Amparo Pressley MD Primary Care Provider Un available Isela Roe MD Unavailable [phone] Layla Segal MD Primary Care Provider [phone] [facility], [facility] Primary Care Provider Unavailabl e Encounter Details Date Type Department Care Team Description 01/06/2018 Orders Only Medicine/Pediatrics - [address] [address] Janessa Langley MD History of thyroid cancer Social History Tobacco Use Types Packs/Day Years [...] Procedure Name Priority Date/Time Associated Diagnosis Comments US SOFT TISSUE HEAD/NECK Routine 12/26/2017 History of thyroid cancer documented in this encounter Results * US SOFT TISSUE HEAD/NECK (12/26/2017) Janessa Langley MD ULTRASOUND documented in this encounter Visit Diagnoses Diagnosis History of thyroid cancer Personal history of malignant neoplasm of thyroid documented in this encounter Care Teams Career Development Specialist Relationship Specialty Start Date End Date Janessa Langley MD PCP - General Internal Medicine 12/02/15 11/03/19 Mark Caraballo MD PCP - General Family Practice 11/04/19 04/13/20 Janessa Langley MD PCP - General Internal Medicine 04/14/20 08/08/20 Layla Segal MD [address] [place] [address] PCP - General Internal Medicine 08/09/20 10/19/20 Amparo Pressley MD [address] [place] [address] PCP - General Internal Medicine 10/20/20 12/12/20 Layla Segal MD [address] [place] [address] PCP - General Internal Medicine 12/13/20 01/07/22 [facility], Pcp [address] [address] PCP - General Internal Medicine 01/08/22 Isela Roe MD [address] [address] Specialist Cardiology 10/28/20 documented as of this encounter
--- OUTSIDE RECORDS SUMMARY | 2024-05-04 16:58 | XMS_ITS | Encounter Summary ---
Author Organization [facility] Address [address] [place] [address] Care Team Providers Care Can Cleaner Name Role Phone Amparo Pressley MD Primary Care Provider Un available Mark Alfonso MD Primary Care Provider Unavail able Janessa Langley MD Primary Care Provider Unavaila Mark Valera MD Primary Care Provider Unavail able Janessa Langley MD Primary Care Provider Unavaila Mark Mayo MD Primary Care Provider Unav ailable Janessa Langley MD Primary Care Provider Unavaila Layla Juarez MD Primary Care Provider [phone] Amparo Pressley MD Primary Care Provider Un available Isela Roe MD Unavailable [phone] Layla Segal MD Primary Care Provider [phone] [facility] Primary Care Provider Unavailabl e Encounter Details Date Type Department Care Team Description 01/26/2010 Controlled Substance Plan Medical Records [address] [place] [address] Abstract, Provider Social History Tobacco Use Types Packs/Day Years Used Date Smoking Tobacco: Every Day Cigarettes 0.3 Comments:currently occasiona l Alcohol Use Standard Drinks/Week Comments Not Asked 0 (1 standard drink = 0.6 oz pur e alcohol) Sex Assigned at Date Recorded Not on file documented as of this encounter Plan of Treatment Not on file documented as of this encounter Visit Diagnoses Not on filedocumented in this encounter Care Teams Can Cleaner Relationship Specialty Start Date End Date Amparo [...] Internal Medicine 04/14/20 08/08/20 Layla Segal MD [address] [place] [address] PCP - General Internal Medicine 08/09/20 10/19/20 Amparo Pressley MD PCP - General Internal Medicine 10/20/20 Layla Segal MD [address] [place] [address] PCP - General Internal Medicine 12/13/20 01/07/22 [facility], Pcp [address] [address] PCP - General Internal Medicine 01/08/22 Isela Roe MD [address] [address] Specialist Cardiology 10/28/20 documented as of this encounter
--- OUTSIDE RECORDS SUMMARY | 2024-05-04 16:58 | XMS_ITS | Encounter Summary ---
Author Organization [facility] Address [address] [place] [address] Care Team Providers Care Toppiece Chopper Name Role Phone Amparo Pressley MD Primary Care Provider Un available Mark Alfonso MD Primary Care Provider Unavail able Janessa Langley MD Primary Care Provider Unavaila Mark Valera MD Primary Care Provider Unavail able Janessa Langley MD Primary Care Provider Unavaila Mark Mayo MD Primary Care Provider Unav ailable Janessa Langley MD Primary Care Provider Unavaila Layla Juarez MD Primary Care Provider [phone] Amparo Pressley MD Primary Care Provider Un available Isela Roe MD Unavailable [phone] Layla Segal MD Primary Care Provider [phone] [facility], Pcp Primary Care Provider Unavailabl e Encounter Details Date Type Department Care Team Description 12/12/2011 Leave Coordinator Report Medical Records [address] [place], [place] [id number] [place] [address] Social History Tobacco Use Types Packs/Day Years [...] on filedocumented in this encounter Care Teams Toppiece Chopper Relationship Specialty Start Date End Date Amparo [...] Medicine 04/14/20 08/08/20 Layla Segal MD [address] [place] [address] PCP - General Internal Medicine 08/09/20 10/19/20 Amparo Pressley MD PCP - General Internal Medicine 10/20/20 Layla Segal MD [address] [place] [address] PCP - General Internal Medicine 12/13/20 01/07/22 [facility], Pcp [address] [address] PCP - General Internal Medicine 01/08/22 Isela Roe MD 300 [facility] [address] [place] [address] Specialist Cardiology 10/28/20 documented as of this encounter
--- OUTSIDE RECORDS SUMMARY | 2024-05-04 16:58 | XMS_ITS | Encounter Summary ---
Author Organization [facility] Address [address] [place] [address] Care Team Providers Care Parts Coordinator Name Role Phone Amparo Pressley MD Primary Care Provider Un available Mark Alfonso MD Primary Care Provider Unavail able Janessa Langley MD Primary Care Provider Unavaila Mark Valera MD Primary Care Provider Unavail able Janessa Langley MD Primary Care Provider Unavaila Mark Mayo MD Primary Care Provider Unav ailable Janessa Langley MD Primary Care Provider Unavaila Layla Juarez MD Primary Care Provider [phone] Amparo Pressley MD Primary Care Provider Un available Isela Roe MD Unavailable [phone] Layla Segal MD Primary Care Provider [phone] [facility], Pcp Primary Care Provider Unavailabl e Encounter Details Date Type Department Care Team Description 04/24/2010 Proof Machine Operator Supervisor Report Medical Records [address] [place] [address] Sara Wakefield MD Social History Tobacco Use Types Packs/Day [...] on filedocumented in this encounter Care Teams Parts Coordinator Relationship Specialty Start Date End Date Amparo [...] Internal Medicine 04/14/20 08/08/20 Layla Segal MD [address] [place] [address] PCP - General Internal Medicine 08/09/20 10/19/20 Amparo Pressley MD PCP - General Internal Medicine 10/20/20 Layla Segal MD [address] [place] [address] PCP - General Internal Medicine 12/13/20 01/07/22 [facility], Pcp [address] [address] PCP - General Internal Medicine 01/08/22 Isela Roe MD [address] [address] Specialist Cardiology 10/28/20 documented as of this encounter
--- OUTSIDE RECORDS SUMMARY | 2024-05-04 16:58 | XMS_ITS | Encounter Summary ---
Author Organization [facility] Address [address] [place] [address] Care Team Providers Care Retail Wireless Sales Consultant Name Role Phone Mark Alfonso MD Primary Care Provider Unavail able Janessa Langley MD Primary Care Provider Unavaila Mark Valera MD Primary Care Provider Unavail able Janessa Langley MD Primary Care Provider Unavaila Mark Mayo MD Primary Care Provider Unav ailable Janessa Langley MD Primary Care Provider Unavaila Layla Juarez MD Primary Care Provider [phone] Amparo Pressley MD Primary Care Provider Un available Isela Roe MD Unavailable [phone] Layla Segal MD Primary Care Provider [phone] [facility], Pcp Primary Care Provider Unavailabl e Encounter Details Date Type Department Care Team Description 11/29/2014 Release of Information Medical Records [address] [place] [address] Abstract, Provider Social History Tobacco Use Types [...] on filedocumented in this encounter Care Teams Retail Wireless Sales Consultant Relationship Specialty Start Date End Date Mark [...] Medicine 04/14/20 08/08/20 Layla Segal MD [address] [place] [address] PCP - General Internal Medicine 08/09/20 10/19/20 Amparo Pressley MD [address] [place] [address] PCP - General Internal Medicine 10/20/20 12/12/20 Layla Segal MD [address] [place] [address] PCP - General Internal Medicine 12/13/20 01/07/22 [facility], Pcp [address] [address] PCP - General Internal Medicine 01/08/22 Isela Roe MD [address] [address] Specialist Cardiology 10/28/20 documented as of this encounter
--- OUTSIDE RECORDS SUMMARY | 2024-05-04 16:58 | XMS_ITS | Encounter Summary ---
Author Organization [facility] Address [address] [place] [address] Care Team Providers Care Gear Inspector Name Role Phone Amparo Pressley MD Primary Care Provider Un available Mark Alfonso MD Primary Care Provider Unavail able Janessa Langley MD Primary Care Provider Unavaila Mark Valera MD Primary Care Provider Unavail able Janessa Langley MD Primary Care Provider Unavaila Mark Mayo MD Primary Care Provider Unav ailable Janessa Langley MD Primary Care Provider Unavaila Layla Juarez MD Primary Care Provider [phone] Amparo Pressley MD Primary Care Provider Un available Isela Roe MD Unavailable [phone] Layla Segal MD Primary Care Provider [phone] [facility], Pcp Primary Care Provider Unavailabl e Encounter Details Date Type Department Care Team Description 02/29/2012 Dog Obedience Instructor Report Medical Records [address] [place], [place] [id number] [place] [address] Social History Tobacco Use Types Packs/Day Years [...] on filedocumented in this encounter Care Teams Gear Inspector Relationship Specialty Start Date End Date Amparo Pressley MD PCP - General 01/05/08 06/08/12 Mark Alfonso MD PCP - General Internal Medicine 06/09/12 09/06/15 aJnessa Langley MD PCP - General Internal Medicine 09/07/15 09/08/15 Mark Alfonso MD PCP - General Internal Medicine 09/09/15 12/01/15 Janessa Langley MD PCP - General Internal Medicine 12/02/15 11/03/19 Mark Caraballo MD PCP - General Family Practice 11/04/19 04/13/20 Janessa Langley MD PCP - General Internal Medicine 04/14/20 08/08/20 Layla Segal MD [address] [place] [address] PCP - General Internal Medicine 08/09/20 10/19/20 Amparo Pressley MD PCP - General Internal Medicine 10/20/20 Layla Segal MD [address] [place] [address] PCP - General Internal Medicine 12/13/20 01/07/22 [facility], Pcp [address] [address] PCP - General Internal Medicine 01/08/22 Isela Roe MD 300 [facility] [address] [place] [address] Specialist Cardiology 10/28/20 documented as of this encounter
--- OUTSIDE RECORDS SUMMARY | 2024-05-04 16:58 | XMS_ITS | Encounter Summary ---
Author Organization [facility] Address [address] [place] [address] Care Team Providers Care Public Service Representative Name Role Phone Janessa Langley MD Primary Care Provider Mark Thomas MD Primary Care Provider Unav ailable Janessa Langley MD Primary Care Provider Unavaila Layla Juarez MD Primary Care Provider [phone] Amparo Pressley MD Primary Care Provider Un available Isela Roe MD Unavailable Layla Segal MD Primary Care Provider [phone] [facility] Primary Care Provider Unavailabl e Reason for Visit * Reason Onset Date Comments refill request 01/07/2018 Encounter Details Date Type Department Care Team Description 01/07/2018 Refill Medicine/Pediatrics - [address] [address] Janessa Langley MD refill request Social History Tobacco Use Types Packs/Day Years Used Date Smoking Tobacco: Former Cigarettes 0.3 Q uit: 05/02/2015 Smokeless Tobacco: Never Alcohol Use Standard Drinks/Week Comments No 0 (1 standard drink = 0.6 oz pur e alcohol) Sex Assigned at Date Recorded Not on file documented as of this encounter Miscellaneous Notes * Telephone Encounter - Emily Gardner M.A. - 01/07/2018 4:56 PM EDT Rx put in PPU. * Telephone Encounter - Janessa Langley MD - 01/07/2018 4:32 PM EDT So regarding the ativan taper. She is taking 3mg nightly so will need to decrease by .5mg every week-so take 2.5mg nightly for one week then take 2mg nightly for one week, then take 1.5mg nightly forone week, then take 1mg nightly for one week then take .5mg nightly for one week. . Also if you canpend violation letter with instructions as well. * Telephone Encounter - Janessa Langley MD - 01/07/2018 4:07 PM EDT So,Dr Segal reviewed her November UDS-in addition to being marijuana (+) she has very high amountsof confirmed hydrocodone and hydromorphone - her last script for this was May and her present contract is for oxycodone - which was also positive. [facility] confirms last hydrocodone script (low dose) was over 6 months ago. As such I am going to place her violation. She will need to taper as follows Oxycodone- Take 1 tab oral twice daily for one week, then decrease to 1 tab am and 1/2 tab pm for one week, then decrease to 1/2 tab twice daily for one week, then decrease to 1/2 tab daily for one week Same taper for her ativan Pt notified as written below went over the taper She states she can not come off the ativan she states she will have seizures She denies that other meds should be in her urine Pt want to talk with Dr Shen Beckett Letter pended * Telephone Encounter - Gladis Solano M.A. - 01/07/2018 3:15 PM EDT [facility] reviewed. Last scripts 12/09/17. Pt due for refill. Lab Results Component Value Date URINEOXYCOD POSITIVE 12/09/2017 URBENZO NEGATIVE 12/09/2017 URAMPHETAMIN POSITIVE 12/09/2017 URMARIJUANA POSITIVE 12/09/2017 UROPIATES POSITIVE 12/09/2017 URBARBITUATE NEGATIVE 12/09/2017 URCOCAINE NEGATIVE 12/09/2017 HYDROCODONE Negative 06/22/2016 * Telephone Encounter - Violeta Gutierrez - 01/07/2018 3:02 PM EDT Patient would like script to be: E-PRESCRIBED/FAXED TO PHARMACY and placed in PPU WHEN WAS THE PATIENT'S LAST APPOINTMENT IN [...] N/A Patients current insurance carrier is: Payor: [employer] / Plan: [employer] / Product Type: MEDICAID RISK documented in this encounter Plan of Treatment Not on file documented as of this encounter Visit Diagnoses Diagnosis Anxiety Anxiety state, unspecified RUQ pain Abdominal pain, right upper quadrant documented in this encounter Care Teams Public Service Representative Relationship Specialty Start Date End Date Janessa Langley MD PCP - General Internal Medicine 12/02/15 11/03/19 Mark Caraballo MD PCP - General Family Practice 11/04/19 04/13/20 Janessa Langley MD PCP - General Internal Medicine 04/14/20 08/08/20 Layla Segal MD [address] [place] [address] PCP - General Internal Medicine 08/09/20 10/19/20 Amparo Pressley MD [address] [place] [address] PCP - General Internal Medicine 10/20/20 12/12/20 Layla Segal MD [address] [place] [address] PCP - General Internal Medicine 12/13/20 01/07/22 [facility] [address] [address] PCP - General Internal Medicine 01/08/22 Isela Roe MD 300 [facility] [address] [place] [address] Specialist Cardiology 10/28/20 documented as of this encounter
--- OUTSIDE RECORDS SUMMARY | 2024-05-04 16:58 | XMS_ITS | Encounter Summary ---
Author Organization [facility] Address [address] [place] [address] Care Team Providers Care Trap Operator Name Role Phone Amparo Pressley MD Primary Care Provider Un available Mark Alfonso MD Primary Care Provider Unavail able Janessa Langley MD Primary Care Provider Unavaila Mark Valera MD Primary Care Provider Unavail able Janessa Langley MD Primary Care Provider Unavaila Mark Mayo MD Primary Care Provider Unav ailable Janessa Langley MD Primary Care Provider Unavaila Layla Juarez MD Primary Care Provider [phone] Amparo Pressley MD Primary Care Provider Un available Isela Roe MD Unavailable [phone] Layla Segal MD Primary Care Provider [phone] [facility], Pcp Primary Care Provider Unavailabl e Encounter Details Date Type Department Care Team Description 03/09/2012 Night Triage Doc Medical Records [address] [place] [address] Abstract, Provider Social History Tobacco Use Types [...] on filedocumented in this encounter Care Teams Trap Operator Relationship Specialty Start Date End Date [...] Medicine 04/14/20 08/08/20 Layla Segal MD [address] [place] [address] PCP - General Internal Medicine 08/09/20 10/19/20 Amparo Pressley MD PCP - General Internal Medicine 10/20/20 Layla Segal MD [address] [place] [address] PCP - General Internal Medicine 12/13/20 01/07/22 [facility], Pcp [address] [address] PCP - General Internal Medicine 01/08/22 Isela Roe MD 300 [facility] [address] [place] [address] Specialist Cardiology 10/28/20 documented as of this encounter
--- OUTSIDE RECORDS SUMMARY | 2024-05-04 16:58 | XMS_ITS | Encounter Summary ---
Author Organization [facility] Address [address] [place] [address] Care Team Providers Care Technical Sales Specialist Name Role Phone Janessa Langley MD Primary Care Provider Mark Thomas MD Primary Care Provider Unav ailable Janessa Langley MD Primary Care Provider Unavaila Layla Juarez MD Primary Care Provider [phone] Amparo Pressley MD Primary Care Provider Un available Isela Roe MD Unavailable [phone] Layla Segal MD Primary Care Provider [phone] [facility] Primary Care Provider Unavailabl e Encounter Details Date Type Department Care Team Description 08/31/2016 Transfer Records Medical Records [address] [place] [address] Abstract, Provider Social History Tobacco Use Types [...] on filedocumented in this encounter Care Teams Technical Sales Specialist Relationship Specialty Start Date End Date Janessa Langley MD PCP - General Internal Medicine 12/02/15 11/03/19 Mark Caraballo MD PCP - General Family Practice 11/04/19 04/13/20 Janessa Langley MD PCP - General Internal Medicine 04/14/20 08/08/20 Layla Segal MD [address] [place] [address] PCP - General Internal Medicine 08/09/20 10/19/20 Amparo Pressley MD [address] [place] [address] PCP - General Internal Medicine 10/20/20 12/12/20 Layla Segal MD [address] [place] [address] PCP - General Internal Medicine 12/13/20 01/07/22 [facility], Pcp 300 [facility] [address] [place] [address] PCP - General Internal Medicine 01/08/22 Isela Roe MD 300 [facility] [address] [place] [address] Specialist Cardiology 10/28/20 documented as of this encounter
--- OUTSIDE RECORDS SUMMARY | 2024-05-04 16:58 | XMS_ITS | Encounter Summary ---
Author Organization [facility] Address [address] [place] [address] Care Team Providers Care Machine Shop Repair Technician Name Role Phone Janessa Langley MD Primary Care Provider Mark Thomas MD Primary Care Provider Unav ailable Janessa Langley MD Primary Care Provider Unavaila Layla Juarez MD Primary Care Provider [phone] Amparo Pressley MD Primary Care Provider Un available Isela Roe MD Unavailable [phone] Layla Segal MD Primary Care Provider [phone] [facility] Primary Care Provider Unavailabl e Encounter Details Date Type Department Care Team Description 09/11/2016 Commercial Construction Estimator Report Medical Records [address] [place] [address] Abdirahman Kamara Social History Tobacco Use Types Packs/Day Years [...] on filedocumented in this encounter Care Teams Machine Shop Repair Technician Relationship Specialty Start Date End Date Janessa Langley MD PCP - General Internal Medicine 12/02/15 11/03/19 Mark Caraballo MD PCP - General Family Practice 11/04/19 04/13/20 Janessa Langley MD PCP - General Internal Medicine 04/14/20 08/08/20 Layla Segal MD [address] [place] [address] PCP - General Internal Medicine 08/09/20 10/19/20 Amparo Pressley MD [address] [place] [address] PCP - General Internal Medicine 10/20/20 12/12/20 Layla Segal MD [address] [place] [address] PCP - General Internal Medicine 12/13/20 01/07/22 [facility], Pcp [address] [address] PCP - General Internal Medicine 01/08/22 Isela Roe MD 300 [facility] 154 [place] [address] Specialist Cardiology 10/28/20 documented as of this encounter
--- OUTSIDE RECORDS SUMMARY | 2024-05-04 16:58 | XMS_ITS | Encounter Summary ---
Author Organization [facility] Address [address] [place] [address] Care Team Providers Care Imaging Nurse Name Role Phone Amparo Pressley MD Primary Care Provider Un available Mark Alfonso MD Primary Care Provider Unavail able Janessa Langley MD Primary Care Provider Unavaila Mark Valera MD Primary Care Provider Unavail able Janessa Langley MD Primary Care Provider Unavaila Mark Mayo MD Primary Care Provider Unav ailable Janessa Langley MD Primary Care Provider Unavaila Layal Juarez MD Primary Care Provider [phone] Amparo Pressley MD Primary Care Provider Un available Isela Roe MD Unavailable [phone] Layla Segal MD Primary Care Provider [phone] [facility], Pcp Primary Care Provider Unavailabl e Encounter Details Date Type Department Care Team Description 03/07/2012 Night Triage Doc Medical Records [address] [place] [address] Abstract, Provider Social History Tobacco Use Types [...] on filedocumented in this encounter Care Teams Imaging Nurse Relationship Specialty Start Date End Date Amparo [...] Medicine 04/14/20 08/08/20 Layla Segal MD [address] [place] [address] PCP - General Internal Medicine 08/09/20 10/19/20 Amparo Pressley MD PCP - General Internal Medicine 10/20/20 Lalya Segal MD [address] [place] [address] PCP - General Internal Medicine 12/13/20 01/07/22 [facility], Pcp [address] [address] PCP - General Internal Medicine 01/08/22 Isela Roe MD 300 [facility] [address] [place] [address] Specialist Cardiology 10/28/20 documented as of this encounter
--- OUTSIDE RECORDS SUMMARY | 2024-05-04 16:59 | XMS_ITS | Encounter Summary ---
[facility] Address [address] [place] [address] Care Team Providers Care End Packer Name Role Phone Janessa Langley MD Primary Care Provider Mark Thomas MD Primary Care Provider Unav ailable Janessa Langley MD Primary Care Provider Unavaila Layla Juarez MD Primary Care Provider [phone] Amparo Pressley MD Primary Care Provider Un available Isela Roe MD Unavailable Layla Segal MD Primary Care Provider [phone] [facility] Primary Care Provider Unavailabl e Encounter Details Date Type Department Care Team Description 10/18/2016 Group Therapy Counselor Report Medical Records [address] [place] [address] [place] [address] [place] [address] Social History Tobacco Use Types Packs/Day Years [...] on filedocumented in this encounter Care Teams End Packer Relationship Specialty Start Date End Date Janessa Langley MD PCP - General Internal Medicine 12/02/15 11/03/19 Mark Caraballo MD PCP - General Family Practice 11/04/19 04/13/20 Janessa Langley MD PCP - General Internal Medicine 04/14/20 08/08/20 Layla Segal MD [address] [place] [address] PCP - General Internal Medicine 08/09/20 10/19/20 Amparo Pressley MD [address] [place] [address] PCP - General Internal Medicine 10/20/20 12/12/20 Layla Segal MD [address] [place] [address] PCP - General Internal Medicine 12/13/20 01/07/22 [facility], Pcp [address] [address] PCP - General Internal Medicine 01/08/22 Isela Roe MD 300 [facility] 154 [place] [address] Specialist Cardiology 10/28/20 documented as of this encounter
--- OUTSIDE RECORDS SUMMARY | 2024-05-04 16:59 | XMS_ITS | Encounter Summary ---
Author Organization [facility] Address [address] [place] [address] Care Team Providers Care Histopathologist Name Role Phone Janessa Langley MD Primary Care Provider Mark Thomas MD Primary Care Provider Unav ailable Janessa Langley MD Primary Care Provider Unavaila Layla Juarez MD Primary Care Provider [phone] Amparo Pressley MD Primary Care Provider Un available Isela Roe MD Unavailable [phone] Layla Segal MD Primary Care Provider [phone] [facility] Primary Care Provider Unavailabl e Encounter Details Date Type Department Care Team Description 01/28/2017 Release of Information Medical Records [address] [place] [address] Abstract, Provider Social History Tobacco Use Types [...] on filedocumented in this encounter Care Teams Histopathologist Relationship Specialty Start Date End Date Janessa Langley MD PCP - General Internal Medicine 12/02/15 11/03/19 Makr Caraballo MD PCP - General Family Practice 11/04/19 04/13/20 Janessa Langley MD PCP - General Internal Medicine 04/14/20 08/08/20 Layla Segal MD [address] [place] [address] PCP - General Internal Medicine 08/09/20 10/19/20 Amparo Pressley MD [address] [place] [address] PCP - General Internal Medicine 10/20/20 12/12/20 Layla Segal MD [address] [place] [address] PCP - General Internal Medicine 12/13/20 01/07/22 [facility], Pcp 300 [facility] [address] [place] [address] PCP - General Internal Medicine 01/08/22 Isela Roe MD 300 [facility] [address] [place] [address] Specialist Cardiology 10/28/20 documented as of this encounter
--- OUTSIDE RECORDS SUMMARY | 2024-05-04 16:59 | XMS_ITS | Encounter Summary ---
Author Organization [facility] Address [address] [place] [address] Care Team Providers Care Respiratory Assistant Name Role Phone Janessa Langley MD Primary Care Provider Mark Thomas MD Primary Care Provider Unav ailable Janessa Langley MD Primary Care Provider Unavaila Layla Juarez MD Primary Care Provider [phone] Amparo Pressley MD Primary Care Provider Un available Isela Roe MD Unavailable [phone] Layla Segal MD Primary Care Provider [phone] [facility] Primary Care Provider Unavailabl e Encounter Details Date Type Department Care Team Description 11/25/2016 Release of Information Medical Records [address] [place] [address] Abstract, Provider Social History Tobacco Use Types [...] on filedocumented in this encounter Care Teams Respiratory Assistant Relationship Specialty Start Date End Date Janessa Langley MD PCP - General Internal Medicine 12/02/15 11/03/19 Mark Caraballo MD PCP - General Family Practice 11/04/19 04/13/20 Janessa Langley MD PCP - General Internal Medicine 04/14/20 08/08/20 Layla Segal MD [address] [place] [address] PCP - General Internal Medicine 08/09/20 10/19/20 Amparo Pressley MD [address] [place] [address] PCP - General Internal Medicine 10/20/20 12/12/20 Layla Segal MD [address] [place] [address] PCP - General Internal Medicine 12/13/20 01/07/22 [facility], Pcp 300 [facility] [address] [place] [address] PCP - General Internal Medicine 01/08/22 Isela Roe MD 300 [facility] [address] [place] [address] Specialist Cardiology 10/28/20 documented as of this encounter
--- OUTSIDE RECORDS SUMMARY | 2024-05-04 16:59 | XMS_ITS | Encounter Summary ---
Author Organization [facility] Address [address] [place] [address] Care Team Providers Care Detasseler Name Role Phone Janessa Langley MD Primary Care Provider Mark Thomas MD Primary Care Provider Unav ailable Janessa Langley MD Primary Care Provider Unavaila Layla Juarez MD Primary Care Provider [phone] Amparo Pressley MD Primary Care Provider Un available Isela Roe MD Unavailable [phone] Layla Segal MD Primary Care Provider [phone] [facility] Primary Care Provider Unavailabl e Encounter Details Date Type Department Care Team Description 06/13/2018 Release of Information Medical Records [address] [place] [address] Abstract, Provider Social History Tobacco Use Types [...] on filedocumented in this encounter Care Teams Detasseler Relationship Specialty Start Date End Date Janessa Langley MD PCP - General Internal Medicine 12/02/15 11/03/19 Mark Caraballo MD PCP - General Family Practice 11/04/19 04/13/20 Janessa Langley MD PCP - General Internal Medicine 04/14/20 08/08/20 Layla Segal MD [address] [place] [address] PCP - General Internal Medicine 08/09/20 10/19/20 Amparo Pressley MD [address] [place] [address] PCP - General Internal Medicine 10/20/20 12/12/20 Layla Segal MD [address] [place] [address] PCP - General Internal Medicine 12/13/20 01/07/22 [facility], Pcp [address] [address] PCP - General Internal Medicine 01/08/22 Isela Roe MD 300 [facility] [address] [place] [address] Specialist Cardiology 10/28/20 documented as of this encounter
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
--- OUTSIDE RECORDS SUMMARY | 2024-05-04 16:59 | XMS_ITS | Encounter Summary ---
Author Organization [facility] Address [address] [place] [address] Care Team Providers Care Digital Account Manager Name Role Phone Janessa Langley MD Primary Care Provider UnavailMark Guadarrama MD Primary Care Provider Unav ailable Janessa Langley MD Primary Care Provider Unavaila Layla Juarez MD Primary Care Provider [phone] Amparo Pressley MD Primary Care Provider Un available Isela Roe MD Unavailable [phone] Layla Segal MD Primary Care Provider [phone] [facility], [facility] Primary Care Provider Unavailabl e Encounter Details Date Type Department Care Team Description 02/12/2017 Pt. Non Urgent Medical Question Physiatry - [address] [address] Christopher Wong DO Chronic left-sided low back pain with left-sided sciatica (Primary Dx); Sacroiliac pain Social History Tobacco Use Types Packs/Day Years Used Date Smoking Tobacco: Former Cigarettes 0.3 Q uit: 05/02/2015 Smokeless Tobacco: Never Alcohol Use Standard Drinks/Week Comments No 0 (1 standard drink = 0.6 oz pur e alcohol) Sex Assigned at Date Recorded Not on file documented as of this encounter Progress Notes * Yecenia Rubin L.P.N. - 02/12/2017 12:48 PM ESTFrom: Kristen Bui To: Christopher Wong DO Sent: 02/12/2017 12:13 PM EST Subject: To do injections for nerve pain Hi I would like to know what you suggest to do to get my cystic nerve pain manageable and so that Ican walk with less pain and get sleep. If you could help or can make this better I would appreciateit. Thank You Kristen Bui documented in this encounter Plan of Treatment Scheduled Orders Name Type Priority Associated Diagnoses Orde r Schedule PHYSIATRY PROCEDURE PHYSIATRY Routine Chronic left-sided low back pain with left-sided sciatica Sacroiliac pain Ordered: 02/27/2017 documented as of this encounter Visit Diagnoses Diagnosis Chronic left-sided low back pain with left-sided sciatica- Primary Sacroiliac pain Disorders of sacrum documented in this encounter Care Teams Digital Account Manager Relationship Specialty Start Date End Date Janessa Langley MD PCP - General Internal Medicine 12/02/15 11/03/19 Mark Caraballo MD PCP - General Family Practice 11/04/19 04/13/20 Janessa Langley MD PCP - General Internal Medicine 04/14/20 08/08/20 Layla Segal MD [address] [place] [address] PCP - General Internal Medicine 08/09/20 10/19/20 Amparo Pressley MD [address] [place] [address] PCP - General Internal Medicine 10/20/20 12/12/20 Layla Segal MD [address] [place] [address] PCP - General Internal Medicine 12/13/20 01/07/22 [facility], Pcp [address] [address] PCP - General Internal Medicine 01/08/22 Isela Roe MD [address] [address] Specialist Cardiology 10/28/20 documented as of this encounter
--- OUTSIDE RECORDS SUMMARY | 2024-05-04 16:59 | XMS_ITS | Encounter Summary ---
Author [facility] Address [address] [place] [address] Care Team Providers Care Product Accountant Name Role Phone Janessa Langley MD Primary Care Provider Mark Thomas MD Primary Care Provider Unav ailable Janessa Langley MD Primary Care Provider Unavaila Layla Juarez MD Primary Care Provider [phone] Amparo Pressley MD Primary Care Provider Un available Isela Roe MD Unavailable [phone] Layla Segal MD Primary Care Provider [phone] [facility] Primary Care Provider Unavailabl e Encounter Details Date Type Department Care Team Description 05/25/2018 Hospital Medical Records [address] [place], [place] [id number] [place] [address] Social History Tobacco Use Types Packs/Day Years [...] on filedocumented in this encounter Care Teams Product Accountant Relationship Specialty Start Date End Date Janessa Langley MD PCP - General Internal Medicine 12/02/15 11/03/19 Mark Caraballo MD PCP - General Family Practice 11/04/19 04/13/20 Janessa Langley MD PCP - General Internal Medicine 04/14/20 08/08/20 Layla Segal MD [address] [place] [address] PCP - General Internal Medicine 08/09/20 10/19/20 Amparo Pressley MD [address] [place] [address] PCP - General Internal Medicine 10/20/20 12/12/20 Layla Segal MD [address] [place] [address] PCP - General Internal Medicine 12/13/20 01/07/22 [facility], Pcp [address] [address] PCP - General Internal Medicine 01/08/22 Isela Roe MD 300 [facility] [address] [place] [address] Specialist Cardiology 10/28/20 documented as of this encounter
--- OUTSIDE RECORDS SUMMARY | 2024-05-04 16:59 | XMS_ITS | Encounter Summary ---
[facility] Address [address] [place] [address] Care Team Providers Care Induction Heating Equipment Setter Name Role Phone Janessa Langley MD Primary Care Provider Mark Thomas MD Primary Care Provider Unav ailable Janessa Langley MD Primary Care Provider Unavaila Layla Juarez MD Primary Care Provider [phone] Amparo Pressley MD Primary Care Provider Un available Isela Roe MD Unavailable [phone] Layla Segal MD Primary Care Provider [phone] [facility] Primary Care Provider Unavailabl e Encounter Details Date Type Department Care Team Description 05/26/2018 Hospital Medical Records [address] [place] [address] Domenica Díaz MD Social History Tobacco Use Types Packs/Day [...] on filedocumented in this encounter Care Teams Induction Heating Equipment Setter Relationship Specialty Start Date End Date Janessa Langley MD PCP - General Internal Medicine 12/02/15 11/03/19 Mark Caraballo MD PCP - General Family Practice 11/04/19 04/13/20 Janessa Langley MD PCP - General Internal Medicine 04/14/20 08/08/20 Layla Segal MD [address] [place] [address] PCP - General Internal Medicine 08/09/20 10/19/20 Amparo Pressley MD [address] [place] [address] PCP - General Internal Medicine 10/20/20 12/12/20 Layla Segal MD [address] [place] [address] PCP - General Internal Medicine 12/13/20 01/07/22 [facility], Pcp [address] [address] PCP - General Internal Medicine 01/08/22 Isela Roe MD 300 [facility] [address] [place] [address] Specialist Cardiology 10/28/20 documented as of this encounter
--- OUTSIDE RECORDS SUMMARY | 2024-05-04 16:59 | XMS_ITS | Encounter Summary ---
Author Organization [facility] Address [address] [place] [address] Care Team Providers Care Orthopaedic Technologist Name Role Phone Janessa Langley MD Primary Care Provider UnavailMark Guadarrama MD Primary Care Provider Unav ailable Janessa Langley MD Primary Care Provider Unavaila Layla Juarez MD Primary Care Provider [phone] Amparo Pressley MD Primary Care Provider Un available Isela Roe MD Unavailable [phone] Layla Segal MD Primary Care Provider [phone] [facility], [facility] Primary Care Provider Unavailabl e Reason for Visit * Reason Onset Date Comments hospital follow up 03/03/2018 Encounter Details Date Type Department Care Team Description 03/03/2018 Telephone Cardiology - [address] [address] Shekhar Delarosa MD hospital follow up Social History Tobacco Use Types Packs/Day Years Used Date Smoking Tobacco: Former Cigarettes 0.3 Q uit: 05/02/2015 Smokeless Tobacco: Never Alcohol Use Standard Drinks/Week Comments No 0 (1 standard drink = 0.6 oz pur e alcohol) Sex Assigned at Date Recorded Not on file documented as of this encounter Miscellaneous Notes * Telephone Encounter - Saranya Dowling - 03/31/2018 9:39 AM EST Pt is booked for 04/02/18 * Telephone Encounter - Gladis Brennan Meadows LLillianaP.N. - 03/03/2018 3:32 PM EST She can have next available with mid level. Continued chest pain return to ER. * Telephone Encounter - Saranya Dowling - 03/03/2018 9:47 AM EST This pt was in [facility] last Saturday for bad cp Pulse out of control she said I did request notes but did not receive them I will re-request them again Pt still has cp but not as severe pls advise documented in this encounter Plan of Treatment Not on file documented as of this encounter Visit Diagnoses Not on filedocumented in this encounter Care Teams Orthopaedic Technologist Relationship Specialty Start Date End Date Janessa Langley MD PCP - General Internal Medicine 12/02/15 11/03/19 Mark Caraballo MD PCP - General Family Practice 11/04/19 04/13/20 Janessa Langley MD PCP - General Internal Medicine 04/14/20 08/08/20 Layla Segal MD [address] [place] [address] PCP - General Internal Medicine 08/09/20 10/19/20 Amparo Pressley MD [address] [place] [address] PCP - General Internal Medicine 10/20/20 12/12/20 Layla Segal MD [address] [place] [address] PCP - General Internal Medicine 12/13/20 01/07/22 [facility], Pcp [address] [address] PCP - General Internal Medicine 01/08/22 Isela Roe MD [address] [address] Specialist Cardiology 10/28/20 documented as of this encounter
--- OUTSIDE RECORDS SUMMARY | 2024-05-04 16:59 | XMS_ITS | Encounter Summary ---
Author Organization [facility] Address [address] [place] [address] Care Team Providers Care Engineer And Geologist Name Role Phone Amparo Pressley MD Primary Care Provider Un available Mark Alfonso MD Primary Care Provider Unavail able Janessa Langley MD Primary Care Provider Unavaila Mark Valera MD Primary Care Provider Unavail able Janessa Langley MD Primary Care Provider Unavaila Mark Mayo MD Primary Care Provider Unav ailable Janessa Langley MD Primary Care Provider Unavaila Layla Juarez MD Primary Care Provider [phone] Amparo Pressley MD Primary Care Provider Un available Isela Roe MD Unavailable [phone] Layla Segal MD Primary Care Provider [phone] [facility] Primary Care Provider Unavailabl e Encounter Details Date Type Department Care Team Description 01/04/2010 Inspector Wire Products Report Medical Records [address] [place] [address] Iker Shankar Social History Tobacco Use Types Packs/Day Years Used Date Smoking Tobacco: Passive Smo ke Exposure - Never Smoker Comments:currently occasiona l Alcohol Use Standard Drinks/Week Comments Not Asked 0 (1 standard drink = 0.6 oz pur e alcohol) Sex Assigned at Date Recorded Not on file documented as of this encounter Plan of Treatment Not on file documented as of this encounter Visit Diagnoses Not on filedocumented in this encounter Care Teams Engineer And Geologist Relationship Specialty Start Date End Date Amparo [...] Internal Medicine 04/14/20 08/08/20 Layla Segal MD [address] [place] [address] PCP - General Internal Medicine 08/09/20 10/19/20 Amparo Pressley MD PCP - General Internal Medicine 10/20/20 Layla Segal MD [address] [place] [address] PCP - General Internal Medicine 12/13/20 01/07/22 [facility], Pcp [address] [address] PCP - General Internal Medicine 01/08/22 Isela Roe MD [address] [address] Specialist Cardiology 10/28/20 documented as of this encounter
--- OUTSIDE RECORDS SUMMARY | 2024-05-04 16:59 | XMS_ITS | Encounter Summary ---
Author Organization [facility] Address [address] [place] [address] Care Team Providers Care Waterside Worker Name Role Phone Janessa Langley MD Primary Care Provider Mark Thomas MD Primary Care Provider Unav ailable Janessa Langley MD Primary Care Provider Unavaila Layla Juarez MD Primary Care Provider [phone] Amparo Pressley MD Primary Care Provider Un available Isela Roe MD Unavailable [phone] Layla Segal MD Primary Care Provider [phone] [facility], [facility] Primary Care Provider Unavailabl e Encounter Details Date Type Department Care Team Description 01/03/[address] [id number] Janessa Langley MD Social History Tobacco Use Types Packs/Day Years Used Date Smoking Tobacco: Former Cigarettes 0.3 Q uit: 05/02/2015 Smokeless Tobacco: Never Alcohol Use Standard Drinks/Week Comments No 0 (1 standard drink = 0.6 oz pur e alcohol) Sex Assigned at Date Recorded Not on file documented as of this encounter Miscellaneous Notes * Telephone Encounter - Rosalba Stevens R.N. - 01/03/2017 1:31 PM EDT Please see below * Telephone Encounter - Janessa Langley MD - 01/03/2017 12:48 PM EDT Patient was wondering yesterday if her CT scan could be moved up (currently for end of December). She thinks she has kidney stones and her ultrasound was nondiagnostic. documented in this encounter Plan of Treatment Not on file documented as of this encounter Visit Diagnoses Not on filedocumented in this encounter Care Teams Waterside Worker Relationship Specialty Start Date End Date Janessa Langley MD PCP - General Internal Medicine 12/02/15 11/03/19 Mark Caraballo MD PCP - General Family Practice 11/04/19 04/13/20 Janessa Langley MD PCP - General Internal Medicine 04/14/20 08/08/20 Layla Segal MD [address] [place] [address] PCP - General Internal Medicine 08/09/20 10/19/20 Amparo Pressley MD [address] [place] [address] PCP - General Internal Medicine 10/20/20 12/12/20 Layla Segal MD [address] [place] [address] PCP - General Internal Medicine 12/13/20 01/07/22 [facility], Pcp [address] [address] PCP - General Internal Medicine 01/08/22 Isela Roe MD [address] [address] Specialist Cardiology 10/28/20 documented as of this encounter
--- OUTSIDE RECORDS SUMMARY | 2024-05-04 16:59 | XMS_ITS | Encounter Summary ---
Author Organization [facility] Address [address] [place] [address] Care Team Providers Care Licensed Plumber Name Role Phone Janessa Langley MD Primary Care Provider Mark Thomas MD Primary Care Provider Unav ailable Janessa Langley MD Primary Care Provider Unavaila Layla Juarez MD Primary Care Provider [phone] Amparo Pressley MD Primary Care Provider Un available Isela Roe MD Unavailable [phone] Layla Segal MD Primary Care Provider [phone] [facility] Primary Care Provider Unavailformerly [facility] Encounter Details Date Type Department Care Team Description 01/24/2017 [facility] Medical Records [address] [place] [address] Abstract, Provider Social History Tobacco Use Types [...] on filedocumented in this encounter Care Teams Licensed Plumber Relationship Specialty Start Date End Date Janessa Langley MD PCP - General Internal Medicine 12/02/15 11/03/19 Mark Caraballo MD PCP - General Family Practice 11/04/19 04/13/20 Janessa Langley MD PCP - General Internal Medicine 04/14/20 08/08/20 Layla Segal MD [address] [place] [address] PCP - General Internal Medicine 08/09/20 10/19/20 Amparo Pressley MD [address] [place] [address] PCP - General Internal Medicine 10/20/20 12/12/20 Layla Segal MD [address] [place] [address] PCP - General Internal Medicine 12/13/20 01/07/22 [facility], Pcp 300 [facility] [address] [place] [address] PCP - General Internal Medicine 01/08/22 Isela Roe MD 300 [facility] [address] [place] [address] Specialist Cardiology 10/28/20 documented as of this encounter
--- OUTSIDE RECORDS SUMMARY | 2024-05-04 16:59 | XMS_ITS | Encounter Summary ---
Author Organization [facility] Address [address] [place] [address] Care Team Providers Care Animal Care Worker Name Role Phone Janessa Langley MD Primary Care Provider Mark Thomas MD Primary Care Provider Unav ailable Janessa Langley MD Primary Care Provider Unavaila Layla Juarez MD Primary Care Provider [phone] Amparo Pressley MD Primary Care Provider Un available Isela Roe MD Unavailable [phone] Layla Segal MD Primary Care Provider [phone] [facility] Primary Care Provider Unavailabl e Encounter Details Date Type Department Care Team Description 11/05/2016 Block Operator Report Medical Records [address] [place] [address] Kiersten Wilkes MD Social History Tobacco Use Types Packs/Day [...] on filedocumented in this encounter Care Teams Animal Care Worker Relationship Specialty Start Date End Date Janessa Langley MD PCP - General Internal Medicine 12/02/15 11/03/19 Mark Caraballo MD PCP - General Family Practice 11/04/19 04/13/20 Janessa Langley MD PCP - General Internal Medicine 04/14/20 08/08/20 Layla Segal MD [address] [place] [address] PCP - General Internal Medicine 08/09/20 10/19/20 Amparo Pressley MD [address] [place] [address] PCP - General Internal Medicine 10/20/20 12/12/20 Layla Segal MD [address] [place] [address] PCP - General Internal Medicine 12/13/20 01/07/22 [facility], Pcp [address] [address] PCP - General Internal Medicine 01/08/22 Iesla Roe MD 300 [facility] [address] [place] [address] Specialist Cardiology 10/28/20 documented as of this encounter
--- OUTSIDE RECORDS SUMMARY | 2024-05-04 16:59 | XMS_ITS | Encounter Summary ---
Author Organization [facility] Address [address] [place] [address] Care Team Providers Care Wire Bender Name Role Phone Janessa Langley MD Primary Care Provider UnavailMark Guadarrama MD Primary Care Provider Unav ailable Janessa Langley MD Primary Care Provider Unavaila Layla Juarez MD Primary Care Provider [phone] Amparo Pressley MD Primary Care Provider Un available Isela Roe MD Unavailable Layla Segal MD Primary Care Provider [phone] [facility], [facility] Primary Care Provider Unavailabl e Reason for Referral * Non GOYO (Routine) - Authorized/Booked Specialty Diagnoses / Procedures Referred By Contlizet t Referred To Contact Dermatology Procedures REFERRAL TO DERMATOLOGY Janessa Langley MD [address] [place] [address] Derm/Agavictoriano [address] [place] [address] Referral ID Status Reason Start Date Expiration Date V isits Requested Visits Authorized [id number] Authorized/B ooked 02/27/2017 02/27/2018 12 12 Reason for Visit * Reason Onset Date Comments Supervisor Brake Repair Feedback 02/27/2017 derm Encounter Details Date Type Department Care Team Description 02/27/2017 Telephone Medicine/Pediatrics - [address] [address] Janessa Langley MD Supervisor Brake Repair Feedback (derm) Social History Tobacco Use Types Packs/Day Years Used Date Smoking Tobacco: Former Cigarettes 0.3 Q uit: 05/02/2015 Smokeless Tobacco: Never Alcohol Use Standard Drinks/Week Comments No 0 (1 standard drink = 0.6 oz pur e alcohol) Sex Assigned at Date Recorded Not on file documented as of this encounter Miscellaneous Notes * Telephone Encounter - Asuncion Akins - 02/27/2017 11:34 AM EST Please review this patients new referral request. The referral has been pended. Please complete thefollowing: If approved> sign order If denied>please give instructions and route to your practice nursing pool. Practice nurse should inform referrals and the patient if denied. * Telephone Encounter - Violeta Gutierrez - 02/27/2017 11:20 AM EST Request for a referral to a [facility] [...] specialists. Specialty patient is being referred to: derm Name of Specialist patient is seeing: tbd Reason/diagnosis for visit: pimple like blisters all over head and chin Date of appoinment: tbd If retro, date referral needs to start: charles Tian Payor: [employer] FFS / Plan: FFS HMO $0 [place] [id number] / Product Type: MEDICAID RISK documented in this encounter Plan of Treatment Not on file documented as of this encounter Visit Diagnoses Not on filedocumented in this encounter Care Teams Wire Bender Relationship Specialty Start Date End Date Janessa Langley MD PCP - General Internal Medicine 12/02/15 11/03/19 Mark Caraballo MD PCP - General Family Practice 11/04/19 04/13/20 Janessa Langley MD PCP - General Internal Medicine 04/14/20 08/08/20 Layla Segal MD [address] [place] [address] PCP - General Internal Medicine 08/09/20 10/19/20 Amparo Pressley MD [address] [place] [address] PCP - General Internal Medicine 10/20/20 12/12/20 Layla Segal MD [address] [place] [address] PCP - General Internal Medicine 12/13/20 01/07/22 [facility], Pcp [address] [address] PCP - General Internal Medicine 01/08/22 Isela Roe MD 300 [facility] [address] [place] [address] Specialist Cardiology 10/28/20 documented as of this encounter
[2024-05-04 17:34] LABS: Free T4 (Free Thyroxine) 1.04 ng/dL (0.71-1.85)
[2024-05-07 21:58] LABS: Thyroglobulin Antibody <1 IU/mL (<=1); Thyroglobulin Level <0.1 ng/mL
== END 2024-05-04 14:41 | disposition home or self-care (01) ==
LOC: HO.LNP 14:40
PROVIDERS: Visit Provider Internal Medicine
DX: Z13.89 Encounter for screening for other disorder (principal)
CPT/HCPCS: 80053; 82607; 82746; 83540; 84432; 84439; 84443; 86800

== ENCOUNTER 2024-05-25 10:38 | Outpatient (AMB) | payer OTHER, SELFPAY ==
--- NOTE | 2024-05-25 10:26 | A.OFFPC_ITS ---
Intake Visit Reasons: discuss labs Intake Note: Discuss labs Immigration Guard Required: No Allergies tirzepatide [From Mounjaro] Allergy (Severe, Verified 05/25/24 10:27) Unknown soy Allergy (Mild, Verified 05/25/24 10:27) hives amoxicillin Allergy (Unknown, Verified 05/25/24 10:27) anaphylaxis azithromycin [Zithromax Z-Chris] Allergy (Unknown, Verified 05/25/24 10:27) anaphylaxis Darvocet A500 Allergy (Unknown, Verified 05/25/24 10:27) hives penicillin V Allergy (Unknown, Verified 05/25/24 10:27) anaphylaxis Erythromycin Allergy (Unknown, Uncoded 05/25/24 10:27) anaphylaxis Rabbits Allergy (Unknown, Uncoded 05/25/24 10:27) anaphylaxis South African cheese Allergy (Unknown, Uncoded 05/25/24 10:27) anaphylaxis Tobacco use date assessed: 09/06/23 HPI HPI Comments History of Present Illness Details This is a 54 y/o female with a past medical history of type 2 DM, thyroid cancer, hypothyroid, OA, obesity, hypoxic respiratory failure on chronic 02, lymphedema, recurrent LE cellulitis, depression, anxiety presenting for follow up (video telehealth) Patient continues to suffer from complex and chronic health conditions. Lower extremity wounds on left lower posterior leg shallow 8-9cm widest, b/l LE cellulitis. [place] [facility] 3x/wk nursing 2x/wk for physical therapy She has limited mobility due to pain, lymphedema. She needs a wheelchair ramp to reenter her house due to considerable pain and immobility. She needs a 4 point walker without wheels to aid ambulation in home Endocrine Diabetes is well controlled on current medication. She is overdue for A1C. Did not result from faxed orderes. She has a history of thyroid cancer. Previously followed in [place]. TSH elevated on 200mcg daily levothyroxine. Reports compliance. Rsp: Chronic hypoxic respiratroy failure. She requires chronic 02-4 L at rest, qhs NC, 6L with exertion. 02 at rest today without oxygen 85%, 95% on 4L. Drops to 80% with standing off oxygen and 95% on 6L with standing and 2 steps. Feels better on traditional 02, rather than concentrator. ROS see HPI PHYSICAL EXAM: GENERAL: Alert and oriented x 3. NAD EYES: EOMI. Anicteric. SKIN: b/l lymphedema with erythema LE, posterior LLE unna boot NEUROLOGIC: No focal neurological deficits. PSYCHIATRIC: Cooperative. Appropriate mood and affect [facility] Medical History CVA (cerebral vascular accident) Myocardial ischemia CHARITO on CPAP Thyroid cancer BMI 60.0-69.9, adult Berrios's palsy GERD (gastroesophageal reflux disease) delivery delivered Right knee meniscal tear Morbid obesity POTS (postural orthostatic tachycardia syndrome) Surgical History S/P cholecystectomy H/O total thyroidectomy S/P right knee arthroscopy Family History Father No problems noted. Mother Heart disease History of hypothyroidism Sister No problems noted. Brother No problems noted. Son No problems noted. Son No problems noted. Son No problems noted. Social History Alcohol intake: never Patient Tobacco Use Status: Former Tobacco user Substance Use Type: Marijuana Physical exam (Primary Care) Tobacco/Smoking Status: Tobacco use Status Tobacco use date assessed 09/06/23 05/25/24 10:27 Patient Tobacco Use Status Former Tobacco user 05/25/24 10:27 Telehealth Telehealth Telehealth Platform: [facility] Location of provider rendering services: practice address Location of patient: address on file Patient Identification confirmed using: Name, : Yes Telehealth method: video Patient verbally consented to treatment: Yes Patient verbally consented to billing insurance company: Yes Patient informed of any privacy concerns related to visit: Yes Minutes spent on Phone/Video with Pt.: 35 Coding Level of Care Code Tele Est Pt Level 4 (53388) Diagnoses Chronic hypoxic respiratory failure J96.11 History of thyroid cancer Z85.850 Type 2 diabetes mellitus with other specified complication, unspecified whether patient experience coordinator insulin use E11.69 Diabetes mellitus intermediate insulin use: unspecified patient experience coordinator insulin use status Diabetes mellitus complication status: with other specified complication Assessment & Plan Assessment & Plan (1) Chronic hypoxic respiratory failure: Code(s): J96.11 - Chronic respiratory failure with hypoxia Category: Medical Plan: Rx to [facility]. Chronic dependent. Has VNA at home. (2) History of thyroid cancer: Code(s): Z85.850 - Personal history of malignant neoplasm of thyroid Category: Medical Plan: Increase levothyroxine 225mcg daily. Did not feel well on 250mcg previously. Recheck TSH (3) Type 2 diabetes mellitus: Code(s): E11.9 - Type 2 diabetes mellitus without complications Category: Medical Qualifiers: Diabetes mellitus patient experience coordinator insulin use: unspecified patient experience coordinator insulin use status Diabetes mellitus complication status: with other specified complication Qualified Code(s): E11.69 - Type 2 diabetes mellitus with other specified complication Plan: A1C to be refaxed Orders: Referrals Cologuard Test Z12.11 - Encounter for screening for malignant neoplasm of colon, Z12.12 - Encounter for screening for malignant neoplasm of rectum Medications: New walker As directed No wheels 1 ea 0RF NS I89.0 - Lymphedema, not elsewhere classified, R29.898 - Other symptoms and signs involving the musculoskeletal sys tem, S81.809A - Unspecified open wound, unspecified lower leg, initial encounter levothyroxine Take one tab oral once daily with 200mcg tab for total 225mcg daily 25 mcg PO DAILY 90 tabs 3RF Changed From Oxygen Home Use Oxygen concentrator 6L standing 4L sitting 1 ea 0RF J96.11 - Chronic respiratory failure with hypoxia To Oxygen Home Use Oxygen via NC 6L standing 4L sitting 1 ea 0RF J96.11 - Chronic respiratory failure with hypoxia Refilled oxycodone 5 mg PO Q6H PRN 112 tabs 0RF pain 28 days diphenhydramine HCl (Benadryl) 25 mg PO BEDTIME PRN 90 caps 3RF allergy symptoms Discontinued doxycycline hyclate Discontinued Reason: Doctor's Order 100 mg PO BID 10 days 20 tabs 0RF doxycycline hyclate Discontinued Reason: Doctor's Order 100 mg PO BID 20 tabs 0RF levofloxacin Discontinued Reason: Doctor's Order 750 mg PO DAILY 10 tabs 0RF sulfamethoxazole-trimethoprim 800-160 mg (Bactrim DS) Discontinued Reason: Doctor's Order 1 tab PO BID 7 days 14 tabs 0RF prednisone Discontinued Reason: Doctor's Order 20 mg PO BID 20 tabs 0RF
--- OUTSIDE RECORDS SUMMARY | 2024-05-25 12:02 | XMS_ITS | Clinical Summary ---
[facility] Address [address] [place] [address] Care Team Providers Care Associate Doctor Name Role Phone Unavailable Primary Care Provider Unavailabl e Surgical History Surgery Date Site/Laterality Comments KNEE SURGERY 05/2003 Right PROCEDURE: HISTORICAL KNEE SURGERY THYROIDECTOMY 06/2010 PROCEDURE: HISTORICAL TOTAL THYROIDECTOMY; COMMENT: papillary cancer TUBAL LIGATION 12/2007 PROCEDURE: HISTORICAL TUBAL LIGATION; COMMENT: with c/s OTHER SURGICAL HISTORY 06/2012 PROCEDURE: [place] BX/EXC LYMPH NODE OPEN DEEP CERVICAL NODE; [...] conjunctivitis COPD (chronic obstructive pu lmonary disease) ([facility]) 06/21/2016 DX:COPD (chronic obstructive pulmonary disease) ([facility]) Depression 12/26/2016 DX:Depression Dysphagia 10/09/2016 DX:Dysphagia Gastroesophageal reflux disease 12/26/2016 DX:Gastroesophageal reflux disease 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; 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 PVD (peripheral vascular dis ease) ([facility]) 10/19/2020 DX:PVD (peripheral vascular disease) ([facility]); COMMENT: bilateral Family History Medical History Relation [...] drink = 0.6 oz pur e alcohol) Comments Unknown Sex and Gender Information Value Date Recorded Sex Assigned at Not on file Legal Sex Female 12:06 PM EST Gender Identity Not on file Sexual Orientation [...] Cancer Screening: Pap Smear 01/24/1993 Pneumococcal Vaccine: 50+ Years (2 of 2 - PCV) 12/01/2016 12/02/2015 Pneumococcal Vaccine: Pediatrics (0 to 5 Years) [...] patient's age to complete this topic Meningococcal B Vacine Aged Out No lo nger eligible based on patient's age to complete this topic RSV Immunization Patients Under 20 months Aged Out No longer eligible based on patient's age to complete this topic Varicella Vaccines Aged Out No longer eligible based on patient's age to complete this topic
== END 2024-05-25 17:05 | disposition home or self-care (01) ==
LOC: HO.HMCFM 10:38
PROVIDERS: PCP Internal Medicine; Visit Provider Internal Medicine
DX: J96.11 Chronic respiratory failure with hypoxia (principal); Z85.850 Personal history of malignant neoplasm of thyroid; E11.69 Type 2 diabetes mellitus with other specified complication

== ENCOUNTER → 2024-05-25 10:38 | Outpatient (BNVA) | payer OTHER, SELFPAY | PROVIDERS: PCP Internal Medicine; Visit Provider Internal Medicine ==

== ENCOUNTER → 2024-05-26 23:59 | Outpatient (BNV) | payer OTHER, SELFPAY | PROVIDERS: PCP Internal Medicine; Visit Provider Internal Medicine | DX: L89.892 Pressure ulcer of other site, stage 2 (principal); I89.0 Lymphedema, not elsewhere classified | CPT/HCPCS: G0180 ==

== ENCOUNTER 2024-05-29 16:39 | Outpatient (REF) | payer OTHER, SELFPAY ==
[2024-05-29 16:54] LABS: Estimated Average Glucose 131 mg/dL; Hemoglobin A1C 132.4161 umol/L; Hemoglobin A1c % 6.2 % (<6.0); Total Hemoglobin (HGBA1C) 3011.1815 umol/L
--- OUTSIDE RECORDS SUMMARY | 2024-05-29 18:07 | XMS_ITS | Clinical Summary ---
[facility] Organization [facility] Address [address] [place] [address] Care Team Providers Care Skip Pitman Name Role Phone Unavailable Primary Care Provider Unavailabl e Surgical History Surgery Date Site/Laterality Comments KNEE SURGERY 05/2003 Right PROCEDURE: HISTORICAL KNEE SURGERY THYROIDECTOMY 06/2010 PROCEDURE: HISTORICAL TOTAL THYROIDECTOMY; COMMENT: papillary cancer TUBAL LIGATION 12/2007 PROCEDURE: HISTORICAL TUBAL LIGATION; COMMENT: with c/s OTHER SURGICAL HISTORY 06/2012 PROCEDURE: [place] BX/EXC LYMPH NODE OPEN DEEP CERVICAL NODE; [...] conjunctivitis COPD (chronic obstructive pu lmonary disease) (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) 10/19/2020 DX:PVD (peripheral vascular disease) ([facility]); COMMENT: bilateral Family History Medical History [...]
== END 2024-05-29 16:40 | disposition home or self-care (01) ==
LOC: HO.HVNA 16:39
PROVIDERS: Visit Provider Internal Medicine
DX: E11.69 Type 2 diabetes mellitus with other specified complication (principal); E03.9 Hypothyroidism, unspecified
CPT/HCPCS: 36415; 83036

== ENCOUNTER 2024-06-01 13:28 | Outpatient (REF) | payer OTHER, SELFPAY ==
[2024-06-01 14:23] LABS: Estimated Average Glucose 128 mg/dL; Hemoglobin A1C 128.9703 umol/L; Hemoglobin A1c % 6.1 % (<6.0); Total Hemoglobin (HGBA1C) 2973.7942 umol/L
--- OUTSIDE RECORDS SUMMARY | 2024-06-01 16:49 | XMS_ITS | Encounter Summary ---
Author Organization [facility] Address [address] [place] [address] Care Team Providers Care Toll Patrolman Name Role Phone Janessa Langley MD Primary Care Provider UnavailMark Guadarrama MD Primary Care Provider Unav ailable Janessa Langley MD Primary Care Provider Unavaila Layla Juarez MD Primary Care Provider [phone] Amparo Pressley MD Primary Care Provider Un available Isela Roe MD Unavailable [phone] Layla Segal MD Primary Care Provider [phone] Pending Sale To [facility] Primary Care Provider Unavailabl e Reason for Referral * EXTERNAL (Routine) - Authorized/Booked Specialty Diagnoses / Procedures Referred By Contact Referred To Contact COMPREHENSIVE WEIGHT MANAGEMENT / WEIGHT MANAGEMENT Procedures REFERRAL TO WEIGHT MANAGEMENT CLINIC Janessa Langley MD [address] [place] [address] Alfredo Lilly MD, [address] [address] Referral ID Status Reason Start Date Expiration Date V isits Requested Visits Authorized SEE NOTE Authorized/B ooked 05/08/2017 08/07/2017 1 1 Reason for Visit * Reason Onset Date Comments Superintendent Storage Area Feedback 05/07/2017 weight managemen t Encounter Details Date Type Department Care Team Description 05/07/2017 Telephone Adult [address] [id number] Janessa Langley MD Superintendent Storage Area Feedback (weight management) Social History Tobacco Use [...] sign ?? Thank you, [place] Referrals Coordinator [facility] Referrals Department documented in this encounter Plan of Treatment Not on file documented as of this encounter Visit Diagnoses Not on filedocumented in this encounter Care Teams Toll Patrolman Relationship Specialty Start Date End Date Janessa Langley MD PCP - General Internal Medicine 12/02/15 11/03/19 Mark Caraballo MD PCP - General Family Practice 11/04/19 04/13/20 Janessa Langley MD PCP - General Internal Medicine 04/14/20 08/08/20 Layla Segal MD [address] [place] [address] PCP - General Internal Medicine 08/09/20 10/19/20 Amparo Pressley MD [address] [place] [address] PCP - General Internal Medicine 10/20/20 12/12/20 Layla Segal MD [address] [place] [address] PCP - General Internal Medicine 12/13/20 01/07/22 Pending Sale To [facility], Pcp [address] [facility] [address] [place] [address] PCP - General Internal Medicine 01/08/22 Isela Roe MD 300 [facility] [address] [place] [address] Specialist Cardiology 10/28/20 documented as of this encounter
--- OUTSIDE RECORDS SUMMARY | 2024-06-01 16:49 | XMS_ITS | Encounter Summary ---
Author Organization [facility] Address [address] [place] [address] Care Team Providers Care Configuration Management Architect Name Role Phone Mark Alfonso MD Primary Care Provider Unavail able Janessa Langley MD Primary Care Provider Unavaila Mark Valera MD Primary Care Provider Unavail able Janessa Langley MD Primary Care Provider Unavaila Mark Mayo MD Primary Care Provider Unav ailable Janessa Langley MD Primary Care Provider Unavaila Layla Juarez MD Primary Care Provider [phone] Amparo Pressley MD Primary Care Provider Un available Isela Roe MD Unavailable [phone] Layla Segal MD Primary Care Provider [phone] [facility], Pcp Primary Care Provider Unavailabl e Encounter Details Date Type Department Care Team Description 08/07/2015 Pt. Non Urgent Medical Question YARN DUMPER - [address] [address] Denia Edge MD Social History Tobacco Use [...] on filedocumented in this encounter Care Teams Configuration Management Architect Relationship Specialty Start Date End Date Mark [...] Medicine 04/14/20 08/08/20 Layla Segal MD [address] [place] [address] PCP - General Internal Medicine 08/09/20 10/19/20 Amparo Pressley MD [address] [place] [address] PCP - General Internal Medicine 10/20/20 12/12/20 Layla Segal MD [address] [place] [address] PCP - General Internal Medicine 12/13/20 01/07/22 [facility], [address] [address] PCP - General Internal Medicine 01/08/22 Isela Roe MD 300 [facility] [address] [place] [address] Specialist Cardiology 10/28/20 documented as of this encounter
--- OUTSIDE RECORDS SUMMARY | 2024-06-01 16:49 | XMS_ITS | Encounter Summary ---
Author Organization [facility] Address [address] [place] [address] Care Team Providers Care Scrip Clerk Name Role Phone Mark Alfonso MD Primary Care Provider Unavail able Janessa Langley MD Primary Care Provider Unavaila Mark Valera MD Primary Care Provider Unavail able Janessa Langley MD Primary Care Provider Unavaila Mark Mayo MD Primary Care Provider Unav ailable Janessa Langley MD Primary Care Provider Unavaila Layla Juarez MD Primary Care Provider [phone] Amparo Pressley MD Primary Care Provider Un available Isela Roe MD Unavailable [phone] Layla Segal MD Primary Care Provider [phone] [facility], Pcp Primary Care Provider Unavailabl e Reason for Visit * Reason Onset Date Comments Orders Call 07/05/2015 Encounter Details Date Type Department Care Team Description 07/05/2015 Telephone Adult Medicine [address] [address] Mark Alfonso MD Orders Call Social History Tobacco Use Types Packs/Day Years Used Date Smoking Tobacco: Former Cigarettes 0.3 Q uit: 05/02/2015 Smokeless Tobacco: Never Alcohol Use Standard Drinks/Week Comments No 0 (1 standard drink = 0.6 oz pur e alcohol) Sex Assigned at Date Recorded Not on file documented as of this encounter Miscellaneous Notes * Telephone Encounter - Marika St M.A. - 07/06/2015 4:11 PM EDT Fax with pod however, unable to fax or call regaring as phones are down. * Telephone Encounter - Mark Alfonso MD - 07/05/2015 4:47 PM EDT Order for CAT scan given to pod nurse. * Telephone Encounter - Rula Wood R.N. - 07/05/2015 4:[address] america castellon wants her CT scans at [facility] need external order POD can book this * Telephone Encounter - Uma Wheeler - 07/05/2015 10:31 AM EDT Patient calling to speak with eugene about making her appt with [facility] ct scan of her chest, Please call documented in this encounter Plan of Treatment Not on file documented as of this encounter Visit Diagnoses Not on filedocumented in this encounter Care Teams Scrip Clerk Relationship Specialty Start Date End Date Mark [...] Medicine 04/14/20 08/08/20 Layla Segal MD [address] [place] [address] PCP - General Internal Medicine 08/09/20 10/19/20 Amparo Pressley MD [address] [place] [address] PCP - General Internal Medicine 10/20/20 12/12/20 Layla Segal MD [address] [place] [address] PCP - General Internal Medicine 12/13/20 01/07/22 [facility], Pcp [address] [address] PCP - General Internal Medicine 01/08/22 Isela Roe MD 300 [facility] [address] [place] [address] Specialist Cardiology 10/28/20 documented as of this encounter
--- OUTSIDE RECORDS SUMMARY | 2024-06-01 16:49 | XMS_ITS | Encounter Summary ---
Author Organization [facility] Address [address] [place] [address] Care Team Providers Care Paperhanger Name Role Phone Mark Alfonso MD Primary Care Provider Unavail able Janessa Langley MD Primary Care Provider Unavaila Mark Valera MD Primary Care Provider Unavail able Janessa Langley MD Primary Care Provider Unavaila Mark Mayo MD Primary Care Provider Unav ailable Janessa Langley MD Primary Care Provider Unavaila Layla Juarez MD Primary Care Provider [phone] Amparo Pressley MD Primary Care Provider Un available Isela oRe MD Unavailable [phone] Layla Segal MD Primary Care Provider [phone] [facility], Pcp Primary Care Provider Unavailabl e Encounter Details Date Type Department Care Team Description 09/04/2015 Pt. Non Urgent Medical Question MRI SPECIALIST - [address] [address] Denia Edge MD Social History Tobacco Use Types Packs/Day Years Used Date Smoking Tobacco: Former Cigarettes 0.3 Q uit: 05/02/2015 Smokeless Tobacco: Never Alcohol Use Standard Drinks/Week Comments No 0 (1 standard drink = 0.6 oz pur e alcohol) Sex Assigned at Date Recorded Not on file documented as of this encounter Progress Notes * Penny Ulloa R.N. - 09/05/2015 10:45 AM EDTFrom: Kristen Bui To: Denia Edge MD Sent: 09/04/2015 6:25 PM EDT Subject: Prescription for injections Hi I have not recieved the prescription for my injections, I was told by [facility] on [address] here in [place] and they said they sent it to another pharmacy that my insurance company covers. But I have not heard or have any type of way of contacting this other company and I have not recieved the medication . I was wondering if there was a way to track the prescription from your office? Because I am still experienceing a great deal of pain before my period and during . If you could please let me knowwhat is going on with this medication or what is the alterinative to . Thank You Kristen Bui documented in this encounter Plan of Treatment Not on file documented as of this encounter Visit Diagnoses Not on filedocumented in this encounter Care Teams Paperhanger Relationship Specialty Start Date End Date Mark [...] Internal Medicine 04/14/20 08/08/20 Layla Segal MD [address] [place] [address] PCP - General Internal Medicine 08/09/20 10/19/20 Amparo Pressley MD [address] [place] [address] PCP - General Internal Medicine 10/20/20 12/12/20 Layla Segal MD [address] [place] [address] PCP - General Internal Medicine 12/13/20 01/07/22 [facility], [address] [address] PCP - General Internal Medicine 01/08/22 Isela Roe MD 300 [facility] [address] [place] [address] Specialist Cardiology 10/28/20 documented as of this encounter
--- OUTSIDE RECORDS SUMMARY | 2024-06-01 16:49 | XMS_ITS | Encounter Summary ---
Author Organization [facility] Address [address] [place] [address] Care Team Providers Care Nickel Operator Name Role Phone Isela Roe MD Unavailable [phone] Layla Segal MD Primary Care Provider [phone] [facility] [place] Care Provider Unavailabl e Reason for Visit * Reason Comments E-prescribe Rx Request Encounter Details Date Type Department Care Team Description 03/21/2021 Refill Pulmonology - [place] [address] [facility] [address] [place] [address] Morales Richards MD [address] [place] [phone] E-prescribe Rx Request Social History Tobacco Use [...] [employer] HMO F 1+/$0 / Product Type: [id number] documented in this encounter Plan of Treatment Not on file documented as of this encounter Visit Diagnoses Not on filedocumented in this encounter Care Teams Nickel Operator Relationship Specialty Start Date End Date Layla Segal MD [address] [place] [address] PCP - General Internal Medicine 12/13/20 01/07/[address] [address] PCP - General Internal Medicine 01/08/22 Isela Roe MD [address] [place] [address] Specialist Cardiology 10/28/20 documented as of this encounter
--- OUTSIDE RECORDS SUMMARY | 2024-06-01 16:49 | XMS_ITS | Encounter Summary ---
Author Organization [facility] Address [address] [place] [address] Care Team Providers Care Field Sales Manager Name Role Phone Mark Alfonso MD Primary Care Provider Unavail able Janessa Langley MD Primary Care Provider UnavailMark Guadarrama MD Primary Care Provider Unav ailable Janessa Langley MD Primary Care Provider Unavaila Layla Juarez MD Primary Care Provider [phone] Amparo Pressley MD Primary Care Provider Un available Isela Roe MD Unavailable [phone] Layla Segal MD Primary Care Provider [phone] [facility], Pcp Primary Care Provider [facility] Encounter Details Date Type Department Care Team Description 11/03/2015 Pt. Non Urgent Medic al Question Pulmonology [address] [place] [address] Shekhar Carrasco MD Social History Tobacco Use Types Packs/Day Years Used Date Smoking Tobacco: Former Cigarettes 0.3 Q uit: 05/02/2015 Smokeless Tobacco: Never Alcohol Use Standard Drinks/Week Comments No 0 (1 standard drink = 0.6 oz pur e alcohol) Sex Assigned at Date Recorded Not on file documented as of this encounter Progress Notes * Jen Brian - 11/03/2015 2:20 PM EDTFrom: Kristen Bui To: Shekhar Carrasco MD Sent: 11/03/2015 12:40 PM EDT Subject: Appointment cancelation I am unable to drive to [place] due vomitting and swelling on right side under my eye socket. 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 woke up this morning with more vomiting and a swollen face and now I having visuale trouble. Very sorry for the short notice , but its not safe for me to drive . documented in this encounter Plan of Treatment Not on file documented as of this encounter Visit Diagnoses Not on filedocumented in this encounter Care Teams Field Sales Manager Relationship Specialty Start Date End Date Mark Alfonso MD PCP - General Internal Medicine 09/09/15 12/01/15 Janessa Langley MD PCP - General Internal Medicine 12/02/15 11/03/19 Mark Caraballo MD PCP - General Family Practice 11/04/19 04/13/20 Janessa Langley MD PCP - General Internal Medicine 04/14/20 08/08/20 Layla Segal MD [address] [place] [address] PCP - General Internal Medicine 08/09/20 10/19/20 Amparo Pressley MD [address] [place] [address] PCP - General Internal Medicine 10/20/20 12/12/20 Layla Segal MD [address] [place] [address] PCP - General Internal Medicine 12/13/20 01/07/22 [facility], Pcp [address] [address] PCP - General Internal Medicine 01/08/22 Isela Roe MD [address] [address] Specialist Cardiology 10/28/20 documented as of this encounter
--- OUTSIDE RECORDS SUMMARY | 2024-06-01 16:49 | XMS_ITS | Encounter Summary ---
Author Organization [facility] Address [address] [place] [address] Care Team Providers Care Cloth Bleaching Supervisor Name Role Phone Isela Roe MD Unavailable [phone] Layla Segal MD Primary Care Provider [phone] Formerly [facility], Pcp Primary Care Provider Unavailabl e Encounter Details Date Type Department Care Team Description 07/15/2021 Walk In Clinic Visit Medical Records [address] [place] [address] Social History Tobacco Use Types Packs/Day Years [...] on filedocumented in this encounter Care Teams Cloth Bleaching Supervisor Relationship Specialty Start Date End Date Layla Segal MD [address] [place] [address] [id number] PCP - General Internal Medicine 12/13/20 01/07/22 Formerly [facility], Pcp [address] [place] [address] PCP - General Internal Medicine 01/08/22 Isela Roe MD 300 [facility] [address] [place] [address] Specialist Cardiology 10/28/20 documented as of this encounter
--- OUTSIDE RECORDS SUMMARY | 2024-06-01 16:49 | XMS_ITS | Encounter Summary ---
Author Organization [facility] Address [address] [place] [address] Care Team Providers Care Fixed Wing Aircraft Flight Engineer Name Role Phone Janessa Langley MD Primary Care Provider UnavailMark Guadarrama MD Primary Care Provider Unav ailable Janessa Langley MD Primary Care Provider Unavaila Layla Juarez MD Primary Care Provider [phone] Amparo Pressley MD Primary Care Provider Un available Isela Roe MD Unavailable [phone] Layla Segal MD Primary Care Provider [phone] [facility], [facility] Primary Care Provider Unavailabl e Encounter Details Date Type Department Care Team Description 01/01/2019 Telephone General Surgery - [address] [place] [address] Jeannette Elena MD [address] [place] [address] [address] [place] [address] Social History Tobacco Use Types Packs/Day Years [...] on filedocumented in this encounter Care Teams Fixed Wing Aircraft Flight Engineer Relationship Specialty Start Date End Date Janessa Langley MD PCP - General Internal Medicine 12/02/15 11/03/19 Mark Caraballo MD PCP - General Family Practice 11/04/19 04/13/20 Janessa Langley MD PCP - General Internal Medicine 04/14/20 08/08/20 Layla Segal MD [address] [place] [address] PCP - General Internal Medicine 08/09/20 10/19/20 Amparo Pressley MD [address] [place] [address] PCP - General Internal Medicine 10/20/20 12/12/20 Layla Segal MD [address] [place] [address] PCP - General Internal Medicine 12/13/20 01/07/22 [facility], Pcp [address] [address] PCP - General Internal Medicine 01/08/22 Isela Roe MD [address] [address] Specialist Cardiology 10/28/20 documented as of this encounter
--- OUTSIDE RECORDS SUMMARY | 2024-06-01 16:49 | XMS_ITS | Encounter Summary ---
Author Organization [facility] Address [address] [place] [address] Care Team Providers Care Orchestra Musician Name Role Phone Mark Alfonso MD Primary Care Provider Unavail able Janessa Langley MD Primary Care Provider UnavailMark Guadarrama MD Primary Care Provider Unav ailable Janessa Langley MD Primary Care Provider Unavaila Layla Juarez MD Primary Care Provider [phone] Amparo Pressley MD Primary Care Provider Un available Isela Roe MD Unavailable [phone] Layla Segal MD Primary Care Provider [phone] [facility], Pcp Primary Care Provider Unavailabl e Encounter Details Date Type Department Care Team Description 09/14/2015 Pt. Non Urgent Medic al Question Pulmonology [address] [place] [address] Shekhar Carrasco MD Social History Tobacco Use Types Packs/Day Years Used Date Smoking Tobacco: Former Cigarettes 0.3 Q uit: 05/02/2015 Smokeless Tobacco: Never Alcohol Use Standard Drinks/Week Comments No 0 (1 standard drink = 0.6 oz pur e alcohol) Sex Assigned at Date Recorded Not on file documented as of this encounter Progress Notes * Sommer Thompson LPN - 09/14/2015 3:33 PM EDTFrom: Kristen Bui To: Shekhar Carrasco MD Sent: 09/14/2015 1:12 PM EDT Subject: attention:Delaney Garay my appointment for the sleep study is [id number] @1pm documented in this encounter Plan of Treatment Not on file documented as of this encounter Visit Diagnoses Not on filedocumented in this encounter Care Teams Orchestra Musician Relationship Specialty Start Date End Date Mark Alfonso MD PCP - General Internal Medicine 09/09/15 12/01/15 Janessa Langley MD PCP - General Internal Medicine 12/02/15 11/03/19 Mark Caraballo MD PCP - General Family Practice 11/04/19 04/13/20 Janessa Langley MD PCP - General Internal Medicine 04/14/20 08/08/20 Layla Segal MD [address] [place] [address] PCP - General Internal Medicine 08/09/20 10/19/20 Amparo Pressley MD [address] [place] [address] PCP - General Internal Medicine 10/20/20 12/12/20 Layla Segal MD [address] [place] [address] PCP - General Internal Medicine 12/13/20 01/07/22 [facility], Pcp [address] [address] PCP - General Internal Medicine 01/08/22 Isela Roe MD [address] [address] Specialist Cardiology 10/28/20 documented as of this encounter
--- OUTSIDE RECORDS SUMMARY | 2024-06-01 16:49 | XMS_ITS | Encounter Summary ---
Author Organization [facility] Address [address] [place] [address] Care Team Providers Care Log Yard Derrick Operator Name Role Phone Mark Alfonso MD Primary Care Provider Unavail able Janessa Langley MD Primary Care Provider Unavaila Mark Valera MD Primary Care Provider Unavail able Janessa Langley MD Primary Care Provider Unavaila Mark Mayo MD Primary Care Provider Unav ailable Janessa Langley MD Primary Care Provider Unavaila Layla Juarez MD Primary Care Provider [phone] Amparo Pressley MD Primary Care Provider Un available Isela Roe MD Unavailable [phone] Layla Segal MD Primary Care Provider [phone] [facility], Pcp Primary Care Provider Unavailabl e Encounter Details Date Type Department Care Team Description 08/12/2015 Accounts Payable Or Receivable Clerk Report Medical Records [address] [place] [address] Rickey Villalpando MD Social History Tobacco Use [...] on filedocumented in this encounter Care Teams Log Yard Derrick Operator Relationship Specialty Start Date End Date [...] Medicine 04/14/20 08/08/20 Layla Segal MD [address] [place] [address] PCP - General Internal Medicine 08/09/20 10/19/20 Amparo Pressley MD [address] [place] [address] PCP - General Internal Medicine 10/20/20 12/12/20 Layla Segal MD [address] [place] [address] PCP - General Internal Medicine 12/13/20 01/07/22 [facility], Pcp [address] [address] PCP - General Internal Medicine 01/08/22 Isela Roe MD [address] [address] Specialist Cardiology 10/28/20 documented as of this encounter
--- OUTSIDE RECORDS SUMMARY | 2024-06-01 16:49 | XMS_ITS | Encounter Summary ---
Author Organization [facility] Address [address] [place] [address] Care Team Providers Care Offal Icer Poultry Name Role Phone Janessa Langley MD Primary Care Provider UnavailMark Guadarrama MD Primary Care Provider Unav ailable Janessa Langley MD Primary Care Provider Unavaila Layla Juarez MD Primary Care Provider [phone] Amparo Pressley MD Primary Care Provider Un available Isela Roe MD Unavailable [phone] Layla Segal MD Primary Care Provider [phone] [facility] Primary Care Provider Unavailabl e Reason for Visit * Reason Onset Date Comments Testing 03/21/2017 Encounter Details Date Type Department Care Team Description 03/21/2017 Telephone Medicine/Pediatrics - [address] [phone] Uma Martinez PA-C Testing Social History Tobacco Use Types Packs/Day Years Used Date Smoking Tobacco: Former Cigarettes 0.3 Q uit: 05/02/2015 Smokeless Tobacco: Never Alcohol Use Standard Drinks/Week Comments No 0 (1 standard drink = 0.6 oz pur e alcohol) Sex Assigned at Date Recorded Not on file documented as of this encounter Miscellaneous Notes * Telephone Encounter - Yumi Milton - 03/21/2017 7:21 PM EST Kristen Bui was scheduled for a CT Scan of chest on 01/29/17, patient cancelled appointment. Patient was rescheduled to 02/11/17,however patient no showed appointment. Therefore we are removing the test from our Scheduled Orders Report. Please note that this test must be reordered if required in the future. documented in this encounter Plan of Treatment Not on file documented as of this encounter Visit Diagnoses Not on filedocumented in this encounter Care Teams Offal Icer Poultry Relationship Specialty Start Date End Date Janessa Langley MD PCP - General Internal Medicine 12/02/15 11/03/19 Mark Caraballo MD PCP - General Family Practice 11/04/19 04/13/20 Janessa Langley MD PCP - General Internal Medicine 04/14/20 08/08/20 Layla Segal MD [address] [place] [address] PCP - General Internal Medicine 08/09/20 10/19/20 Amparo Pressley MD [address] [place] [address] PCP - General Internal Medicine 10/20/20 12/12/20 Layla Segal MD [address] [place] [address] PCP - General Internal Medicine 12/13/20 01/07/22 [facility], Pcp [address] [address] PCP - General Internal Medicine 01/08/22 Isela Roe MD 300 [facility] [address] [place] [address] Specialist Cardiology 10/28/20 documented as of this encounter
--- OUTSIDE RECORDS SUMMARY | 2024-06-01 16:49 | XMS_ITS | Encounter Summary ---
Author Organization [facility] Address [address] [place] [address] Care Team Providers Care Car Wrecker Name Role Phone Janessa Langley MD Primary Care Provider Mark Thomas MD Primary Care Provider Unav ailable Janessa Langley MD Primary Care Provider Unavaila Layla Juarez MD Primary Care Provider [phone] Amparo Pressley MD Primary Care Provider Un available Isela Roe MD Unavailable [phone] Layla Segal MD Primary Care Provider [phone] [facility] Primary Care Provider Unavailabl e Encounter Details Date Type Department Care Team Description 03/02/2016 Caramel Cutter Helper Report Medical Records [address] [place] [address] Abstract, Provider Social History Tobacco Use Types [...] on filedocumented in this encounter Care Teams Car Wrecker Relationship Specialty Start Date End Date Janessa Langley MD PCP - General Internal Medicine 12/02/15 11/03/19 Mark Caraballo MD PCP - General Family Practice 11/04/19 04/13/20 Janessa Langley MD PCP - General Internal Medicine 04/14/20 08/08/20 Layla Segal MD [address] [place] [address] PCP - General Internal Medicine 08/09/20 10/19/20 Amparo Pressley MD [address] [place] [address] PCP - General Internal Medicine 10/20/20 12/12/20 Layla Segal MD [address] [place] [address] PCP - General Internal Medicine 12/13/20 01/07/22 [facility], Pcp 300 [facility] [address] [place] [address] PCP - General Internal Medicine 01/08/22 Isela Roe MD 300 [facility] [address] [place] [address] Specialist Cardiology 10/28/20 documented as of this encounter
--- OUTSIDE RECORDS SUMMARY | 2024-06-01 16:49 | XMS_ITS | Encounter Summary ---
Author Organization [facility] Address [address] [place] [address] Care Team Providers Care Manager Field Name Role Phone Mark Alfonso MD Primary Care Provider Unavail able Janessa Langley MD Primary Care Provider Unavaila Mark Valera MD Primary Care Provider Unavail able Janessa Langley MD Primary Care Provider Unavaila Mark Maoy MD Primary Care Provider Unav ailable Janessa Langley MD Primary Care Provider Unavaila Layla Juarez MD Primary Care Provider [phone] Amparo Pressley MD Primary Care Provider Un available Isela Roe MD Unavailable [phone] Layla Segal MD Primary Care Provider [phone] [facility], Pcp Primary Care Provider Unavailabl e Encounter Details Date Type Department Care Team Description 08/12/2013 Walk In Clinic Visit Medical Records [address] [place] [address] Abstract, Provider Social History Tobacco Use Types [...] filedocumented in this encounter Care Teams Manager Field Relationship Specialty Start Date End Date Mark [...] Medicine 04/14/20 08/08/20 Layla Segal MD [address] [place] [address] PCP - General Internal Medicine 08/09/20 10/19/20 Amparo Pressley MD [address] [place] [address] PCP - General Internal Medicine 10/20/20 12/12/20 Layla Seagl MD [address] [place] [address] PCP - General Internal Medicine 12/13/20 01/07/22 [facility], Pcp [address] [address] PCP - General Internal Medicine 01/08/22 Isela Roe MD [address] [address] Specialist Cardiology 10/28/20 documented as of this encounter
--- OUTSIDE RECORDS SUMMARY | 2024-06-01 16:49 | XMS_ITS | Encounter Summary ---
Author Organization [facility] Address [address] [place] [address] Care Team Providers Care Safe Deposit Clerk Name Role Phone Mark Alfonso MD Primary Care Provider Unavail able Janessa Langley MD Primary Care Provider Unavaila Mark Valera MD Primary Care Provider Unavail able Janessa Langley MD Primary Care Provider Unavaila Mark Mayo MD Primary Care Provider Unav ailable Janessa Langley MD Primary Care Provider Unavaila Layla Juarez MD Primary Care Provider [phone] Amparo Pressley MD Primary Care Provider Un available Isela Roe MD Unavailable [phone] Layla Segal MD Primary Care Provider [phone] [facility], Pcp Primary Care Provider Unavailabl e Encounter Details Date Type Department Care Team Description 06/09/2012 Electrical Research Engineer Report Medical Records [address] [place] [address] Chris Gerber MD Social History Tobacco Use [...] on filedocumented in this encounter Care Teams Safe Deposit Clerk Relationship Specialty Start Date End Date [...] Medicine 04/14/20 08/08/20 Layla Segal MD [address] [place] [address] PCP - General Internal Medicine 08/09/20 10/19/20 Amparo Pressley MD [address] [place] [address] PCP - General Internal Medicine 10/20/20 12/12/20 Layla Segal MD [address] [place] [address] PCP - General Internal Medicine 12/13/20 01/07/22 [facility], Pcp [address] [address] PCP - General Internal Medicine 01/08/22 Isela Roe MD [address] [address] Specialist Cardiology 10/28/20 documented as of this encounter
--- OUTSIDE RECORDS SUMMARY | 2024-06-01 16:49 | XMS_ITS | Encounter Summary ---
Author Organization [facility] Address [address] [place] [address] Care Team Providers Care Fountain Pen Nibs Inspector Name Role Phone Janessa Langley MD Primary Care Provider UnavailMark Guadarrama MD Primary Care Provider Unav ailable Janessa Langley MD Primary Care Provider Unavaila Layla Juarez MD Primary Care Provider [phone] Amparo Pressley MD Primary Care Provider Un available Isela Roe MD Unavailable [phone] Layla Segal MD Primary Care Provider [phone] [facility], [facility] Primary Care Provider Unavailabl e Encounter Details Date Type Department Care Team Description 01/19/2019 Orders Only Adult Medicine [address] [address] Mark Alfonso MD Papillary thyroid carcinoma (HCC) Social History Tobacco Use Types Packs/Day Years [...] Diagnosis Comments US SOFT TISSUE HEAD/NECK Routine 01/19/2019 Papillary thyroid carcinoma (HCC) documented in this encounter Results * US SOFT TISSUE HEAD/NECK (01/19/2019) Mark Alfonso MD ULTRASOUND Performing Organization Address City/State/[facility] Co de Phone Number [facility] [address] [place] [address] documented in this encounter Visit Diagnoses Diagnosis Papillary thyroid carcinoma (HCC) Malignant neoplasm of thyroid gland documented in this encounter Care Teams Fountain Pen Nibs Inspector Relationship Specialty Start Date End Date Janessa Langley MD PCP - General Internal Medicine 12/02/15 11/03/19 Mark Caraballo MD PCP - General Family Practice 11/04/19 04/13/20 Janessa Langley MD PCP - General Internal Medicine 04/14/20 08/08/20 Layla Segal MD [address] [place] [address] PCP - General Internal Medicine 08/09/20 10/19/20 Amparo Pressley MD [address] [place] [address] PCP - General Internal Medicine 10/20/20 12/12/20 Layla Segal MD [address] [place] [address] PCP - General Internal Medicine 12/13/20 01/07/22 [facility], Pcp [address] [address] PCP - General Internal Medicine 01/08/22 Isela Roe MD [address] [address] Specialist Cardiology 10/28/20 documented as of this encounter
--- OUTSIDE RECORDS SUMMARY | 2024-06-01 16:49 | XMS_ITS | Encounter Summary ---
Author Organization [facility] Address [address] [place] [address] Care Team Providers Care Auto Top Mechanic Name Role Phone Janessa Langley MD Primary Care Provider Mark Thomas MD Primary Care Provider Unav ailable Janessa Langley MD Primary Care Provider Unavaila Layla Juarez MD Primary Care Provider [phone] Amparo Pressley MD Primary Care Provider Un available Isela Roe MD Unavailable [phone] Layla Segal MD Primary Care Provider [phone] [facility] Primary Care Provider Unavailabl e Reason for Visit * Reason Onset Date Comments Medication 03/15/2016 Prior Authorization 03/15/2016 Encounter Details Date Type Department Care Team Description 03/15/2016 Telephone Medicine/Pediatrics - [address] [address] Janessa Langley MD Medication; Prior Authorization Social [...] EST Dx endometriosis Prior auth faxed to [facility] for lupron * Telephone Encounter - Mindy Tam - 03/15/2016 2:28 PM EST Fax rec'd from [email or web address] Stating they contacted patients insurance company to check status of the prior auth for lupron depot 3.75 mg kit. They have not yet rec'd a PAform from our office. (fax rec'd [facility] to [facility] [address] [facility] 231 03/15/2016 K[facility]) documented in this encounter Plan of Treatment Not on file documented as of this encounter Visit Diagnoses Not on filedocumented in this encounter Care Teams Auto Top Mechanic Relationship Specialty Start Date End Date Janessa Langley MD PCP - General Internal Medicine 12/02/15 11/03/19 Mark Caraballo MD PCP - General Family Practice 11/04/19 04/13/20 Janessa Langley MD PCP - General Internal Medicine 04/14/20 08/08/20 Layla Segal MD [address] [place] [address] PCP - General Internal Medicine 08/09/20 10/19/20 Amparo Pressley MD [address] [place] [address] PCP - General Internal Medicine 10/20/20 12/12/20 Layla Segal MD [address] [place] [address] PCP - General Internal Medicine 12/13/20 01/07/22 [facility], Pcp [address] [address] PCP - General Internal Medicine 01/08/22 Isela Roe MD [address] [address] Specialist Cardiology 10/28/20 documented as of this encounter
--- OUTSIDE RECORDS SUMMARY | 2024-06-01 16:49 | XMS_ITS | Encounter Summary ---
Author Organization [facility] Address [address] [place] [address] Care Team Providers Care Straightedge Man Name Role Phone Isela Roe MD Unavailable [phone] Layla Segal MD Primary Care Provider [phone] [facility], [facility] Primary Care Provider Unavailabl e Reason for Visit * Reason Comments E-prescribe Rx Request Encounter Details Date Type Department Care Team Description 07/31/2021 Refill Pulmonology - [place] 175 [facility] [address] [place] [address] Morales Richards MD [address] [place] [phone] E-prescribe Rx Request Social History Tobacco Use [...] [employer] HMO F 1+/$0 / Product Type: [id number] documented in this encounter Plan of Treatment Not on file documented as of this encounter Visit Diagnoses Diagnosis Uncomplicated asthma, unspecified asthma severity, unspecified whether persistent documented in this encounter Care Teams Straightedge Man Relationship Specialty Start Date End Date Layla Segal MD [address] [place] [address] PCP - General Internal Medicine 12/13/20 01/07/22 [facility], [address] [address] PCP - General Internal Medicine 01/08/22 Isela Roe MD 300 [facility] 154 [place] [address] Specialist Cardiology 10/28/20 documented as of this encounter
--- OUTSIDE RECORDS SUMMARY | 2024-06-01 16:49 | XMS_ITS | Encounter Summary ---
Author Organization [facility] Address [address] [place] [address] Care Team Providers Care Hot Repairman Name Role Phone Janessa Langley MD Primary Care Provider UnavailMark Guadarrama MD Primary Care Provider Unav ailable Janessa Langley MD Primary Care Provider Unavaila Layla Juarez MD Primary Care Provider [phone] Amparo Pressley MD Primary Care Provider Un available Isela Roe MD Unavailable [phone] Layla Segal MD Primary Care Provider [phone] [facility], [facility] Primary Care Provider Unavailabl e Encounter Details Date Type Department Care Team Description 05/16/2017 Pt. Non Urgent Medic al Question Physiatry - [address] [address] Christopher Wong DO Social History Tobacco Use [...] on filedocumented in this encounter Care Teams Hot Repairman Relationship Specialty Start Date End Date Janessa Langley MD PCP - General Internal Medicine 12/02/15 11/03/19 Mark Caraballo MD PCP - General Family Practice 11/04/19 04/13/20 Janessa Langley MD PCP - General Internal Medicine 04/14/20 08/08/20 Layla Segal MD [address] [place] [address] PCP - General Internal Medicine 08/09/20 10/19/20 Amparo Pressley MD [address] [place] [address] PCP - General Internal Medicine 10/20/20 12/12/20 Layla Segal MD [address] [place] [address] PCP - General Internal Medicine 12/13/20 01/07/22 [facility], Pcp [address] [address] PCP - General Internal Medicine 01/08/22 Isela Roe MD 300 [facility] [address] [place] [address] Specialist Cardiology 10/28/20 documented as of this encounter
--- OUTSIDE RECORDS SUMMARY | 2024-06-01 16:49 | XMS_ITS | Encounter Summary ---
Author Organization [facility] Address [address] [place] [address] Care Team Providers Care Certified Professional Midwife Name Role Phone Mark Alfonso MD Primary Care Provider Unavail able Janessa Langley MD Primary Care Provider Unavaila Mark Valera MD Primary Care Provider Unavail able Janessa Langley MD Primary Care Provider Unavaila Mark Mayo MD Primary Care Provider Unav ailable Janessa Langley MD Primary Care Provider Unavaila Layla Juarez MD Primary Care Provider [phone] Amparo Pressley MD Primary Care Provider Un available Isela Roe MD Unavailable [phone] Layla Segal MD Primary Care Provider [phone] [facility], Pcp Primary Care Provider Unavailabl e Encounter Details Date Type Department Care Team Description 07/25/2015 Waste Water Operator Report Medical Records [address] [place] [address] Rickey Villalpando MD Social History Tobacco Use [...] on filedocumented in this encounter Care Teams Certified Professional Midwife Relationship Specialty Start Date End Date Mark [...] Medicine 04/14/20 08/08/20 Layla Segal MD [address] [place] [address] PCP - General Internal Medicine 08/09/20 10/19/20 Amparo Pressley MD [address] [place] [address] PCP - General Internal Medicine 10/20/20 12/12/20 Layla Segal MD [address] [place] [address] PCP - General Internal Medicine 12/13/20 01/07/22 [facility], Pcp [address] [address] PCP - General Internal Medicine 01/08/22 Isela Roe MD [address] [address] Specialist Cardiology 10/28/20 documented as of this encounter
--- OUTSIDE RECORDS SUMMARY | 2024-06-01 16:49 | XMS_ITS | Clinical Summary ---
Author Organization [facility] Address [address] [place] [address] Care Team Providers Care Patternator Name Role Phone Unavailable Primary Care Provider Unavailabl e Surgical History Surgery Date Site/Laterality Comments KNEE SURGERY 05/2003 Right PROCEDURE: HISTORICAL KNEE SURGERY THYROIDECTOMY 06/2010 PROCEDURE: HISTORICAL TOTAL THYROIDECTOMY; COMMENT: papillary cancer TUBAL LIGATION 12/2007 PROCEDURE: HISTORICAL TUBAL LIGATION; COMMENT: with c/s OTHER SURGICAL HISTORY 06/2012 PROCEDURE: [place] BX/EXC LYMPH NODE OPEN DEEP CERVICAL NODE; [...] conjunctivitis COPD (chronic obstructive pu lmonary disease) ([facility]) 06/21/2016 DX:COPD (chronic obstructive pulmonary disease) ([facility]) Depression 12/26/2016 DX:Depression Dysphagia 10/09/2016 DX:Dysphagia Gastroesophageal reflux disease 12/26/2016 DX:Gastroesophageal reflux disease 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
--- OUTSIDE RECORDS SUMMARY | 2024-06-01 16:49 | XMS_ITS | Encounter Summary ---
Author Organization [facility] Address [address] [place] [address] Care Team Providers Care Bsw Name Role Phone Mark Alfonso MD Primary Care Provider Unavail able Janessa Langley MD Primary Care Provider Unavaila Mark Valera MD Primary Care Provider Unavail able Janessa Langley MD Primary Care Provider Unavaila Mark Mayo MD Primary Care Provider Unav ailable Janessa Langley MD Primary Care Provider Unavaila Layla Juarez MD Primary Care Provider [phone] Amparo Pressley MD Primary Care Provider Un available Isela Roe MD Unavailable [phone] Layla Segal MD Primary Care Provider [phone] [facility] Primary Care Provider Unavailabl e Encounter Details Date Type Department Care Team Description 08/19/2012 Otr Owner Operator Truck Driver Report Medical Records [address] [place] [address] Sherry Panda Social History Tobacco Use Types [...] on filedocumented in this encounter Care Teams Bsw Relationship Specialty Start Date End Date Mark [...] Medicine 04/14/20 08/08/20 Layla Segal MD [address] [place] [address] PCP - General Internal Medicine 08/09/20 10/19/20 Amparo Pressley MD [address] [place] [address] PCP - General Internal Medicine 10/20/20 12/12/20 Layla Segal MD [address] [place] [address] PCP - General Internal Medicine 12/13/20 01/07/22 [facility], Pcp [address] [address] PCP - General Internal Medicine 01/08/22 Isela Roe MD [address] [address] Specialist Cardiology 10/28/20 documented as of this encounter
--- OUTSIDE RECORDS SUMMARY | 2024-06-01 16:49 | XMS_ITS | Encounter Summary ---
Author Organization [facility] Address [address] [place] [address] Care Team Providers Care Candy Butcher Name Role Phone Isela Roe MD Unavailable [phone] [facility], Pcp Primary Care Provider Unavailabl e Reason for Visit * Reason Comments E-prescribe Rx Request Encounter Details Date Type Department Care Team Description 03/12/2022 Refill Pulmonology - [place] 175 [facility] [address] [place] [address] Morales Richards MD [address] [place] [phone] E-prescribe Rx Request Social History Tobacco Use [...] complicated documented in this encounter Care Teams Candy Butcher Relationship Specialty Start Date End Date Community, Pcp [address] [address] PCP - General Internal Medicine 01/08/22 Iesla Roe MD [address] [address] Specialist Cardiology 10/28/20 documented as of this encounter
--- OUTSIDE RECORDS SUMMARY | 2024-06-01 16:49 | XMS_ITS | Encounter Summary ---
Author Organization [facility] Address [address] [place] [address] Care Team Providers Care Blasting Gang Miner Name Role Phone Amparo Pressley MD Primary Care Provider Un available Mark Alfonso MD Primary Care Provider Unavail able Janessa Langley MD Primary Care Provider Unavaila Mark Valera MD Primary Care Provider Unavail able Janessa Langley MD Primary Care Provider Unavaila Mark Mayo MD Primary Care Provider Unav ailable Janessa Langley MD Primary Care Provider Unavaila Layla Juarez MD Primary Care Provider [phone] Amparo Pressley MD Primary Care Provider Un available Isela Roe MD Unavailable [phone] Layla Segal MD Primary Care Provider [phone] [facility], Pcp Primary Care Provider Unavailabl e Encounter Details Date Type Department Care Team Description 02/14/2008 [facility] Medical Records [address] [place] [address] Sybil Matthew Social History Tobacco Use Types [...] on filedocumented in this encounter Care Teams Blasting Gang Miner Relationship Specialty Start Date End Date Amparo [...] Medicine 04/14/20 08/08/20 Layla Segal MD [address] [place] [address] PCP - General Internal Medicine 08/09/20 10/19/20 Amparo Pressley MD PCP - General Internal Medicine 10/20/20 Layla Segal MD [address] [place] [address] PCP - General Internal Medicine 12/13/20 01/07/22 [facility], Pcp [address] [address] PCP - General Internal Medicine 01/08/22 Isela Roe MD [address] [address] Specialist Cardiology 10/28/20 documented as of this encounter
--- OUTSIDE RECORDS SUMMARY | 2024-06-01 16:49 | XMS_ITS | Encounter Summary ---
Author Organization [facility] Address [address] [place] [address] Care Team Providers Care Cannon Crewmember Name Role Phone Isela Roe MD Unavailable [phone] Layla Segal MD Primary Care Provider [phone] [facility], Pcp Primary Care Provider Unavailabl e Reason for Visit * Reason Onset Date Comments refill request 04/10/2021 Encounter Details Date Type Department Care Team Description 04/10/2021 Refill Pulmonology - [place] 175 [facility] [address] [place] [address] Morales Richards MD [address] [place] [phone] refill request Social History Tobacco Use Types [...] on filedocumented in this encounter Care Teams Cannon Crewmember Relationship Specialty Start Date End Date Layla Segal MD [address] [place] [address] PCP - General Internal Medicine 12/13/20 01/07/22 [facility], Pcp [address] [place] [address] PCP - General Internal Medicine 01/08/22 Isela Roe MD [address] [place] [address] Specialist Cardiology 10/28/20 documented as of this encounter
--- OUTSIDE RECORDS SUMMARY | 2024-06-01 16:49 | XMS_ITS | Encounter Summary ---
Author Organization [facility] Address [address] [place] [address] Care Team Providers Care Senior Bioinformatics Specialist Name Role Phone Janessa Langley MD Primary Care Provider UnavailMark Guadarrama MD Primary Care Provider Unav ailable Janessa Langley MD Primary Care Provider Unavaila Layla Juarez MD Primary Care Provider [phone] Amparo Pressley MD Primary Care Provider Un available Isela Roe MD Unavailable [phone] Layla Segal MD Primary Care Provider [phone] [facility] Primary Care Provider Unavailabl e Reason for Visit * Reason Onset Date Comments Faxed Refill 02/17/2016 Encounter Details Date Type Department Care Team Description 02/17/2016 Refill UNIVERSITY TUTOR - [address] [id number] Denia Edge MD Faxed Refill Social History [...] EST WHEN WAS THE PATIENTS LAST ANNUAL RACING MECHANIC EXAM? 06/16/15 Does patient have an upcoming [...] the end of the day? NO [facility] / Plan: FFS HMO $0 [place] [id number] / Product Type: MEDICAID RISK documented in this encounter Plan of Treatment Not on file documented as of this encounter Visit Diagnoses Not on filedocumented in this encounter Care Teams Senior Bioinformatics Specialist Relationship Specialty Start Date End Date Janessa Langley MD PCP - General Internal Medicine 12/02/15 11/03/19 Mark Caraballo MD PCP - General Family Practice 11/04/19 04/13/20 Janessa Langley MD PCP - General Internal Medicine 04/14/20 08/08/20 Layla Segal MD [address] [place] [address] PCP - General Internal Medicine 08/09/20 10/19/20 Amparo Pressley MD [address] [place] [address] PCP - General Internal Medicine 10/20/20 12/12/20 Layla Segal MD [address] [place] [address] PCP - General Internal Medicine 12/13/20 01/07/22 [facility], Pcp 300 [facility] [address] [place] [address] PCP - General Internal Medicine 01/08/22 Isela Roe MD 300 [facility] [address] [place] [address] Specialist Cardiology 10/28/20 documented as of this encounter
--- OUTSIDE RECORDS SUMMARY | 2024-06-01 16:49 | XMS_ITS | Encounter Summary ---
Author Organization [facility] Address [address] [place] [address] Care Team Providers Care Respite Coordinator Name Role Phone Amparo Pressley MD Primary Care Provider Un available Mark Alfonso MD Primary Care Provider Unavail able Janessa Langley MD Primary Care Provider Unavaila Mark Valera MD Primary Care Provider Unavail able Janessa Langley MD Primary Care Provider Unavaila Mark Mayo MD Primary Care Provider Unav ailable Janessa Langley MD Primary Care Provider Unavaila Layla Juarez MD Primary Care Provider [phone] Amparo Pressley MD Primary Care Provider Un available Isela Roe MD Unavailable [phone] Layla Segal MD Primary Care Provider [phone] [facility], Pcp Primary Care Provider Unavailabl e Encounter Details Date Type Department Care Team Description 04/25/2012 Hand Slitter Report Medical Records [address] [place], [place] [id number] [place] [address] Social History Tobacco Use Types Packs/Day Years [...] on filedocumented in this encounter Care Teams Respite Coordinator Relationship Specialty Start Date End Date [...] Medicine 04/14/20 08/08/20 Layla Segal MD [address] [place] [address] PCP - General Internal Medicine 08/09/20 10/19/20 Amparo Pressley MD PCP - General Internal Medicine 10/20/20 Layla Segal MD [address] [place] [address] PCP - General Internal Medicine 12/13/20 01/07/22 [facility], Pcp [address] [address] PCP - General Internal Medicine 01/08/22 Isela Roe MD [address] [address] Specialist Cardiology 10/28/20 documented as of this encounter
--- OUTSIDE RECORDS SUMMARY | 2024-06-01 16:49 | XMS_ITS | Encounter Summary ---
Author Organization [employer] [facility] Address [address] [place] [address] Care Team Providers Care Help Desk Rep Name Role Phone Janessa Langley MD Primary Care Provider UnavailMark Guadarrama MD Primary Care Provider Unav ailable Janessa Langley MD Primary Care Provider Unavaila Layla Juarez MD Primary Care Provider [phone] Amparo Pressley MD Primary Care Provider Un available Isela Roe MD Unavailable [phone] Layla Segal MD Primary Care Provider [phone] [facility] Primary Care Provider Unavailabl e Encounter Details Date Type Department Care Team Description 05/08/2017 Orders Only Medicine/Pediatrics - [address] [address] Janessa Langley MD History of thyroid cancer (Primary Dx); Preventive measure Social History Tobacco Use Types Packs/Day Years Used Date Smoking Tobacco: Former Cigarettes 0.3 Q uit: 05/02/2015 Smokeless Tobacco: Never Alcohol Use Standard Drinks/Week Comments No 0 (1 standard drink = 0.6 oz pur e alcohol) Sex Assigned at Date Recorded Not on file documented as of this encounter Plan of Treatment Not on file documented as of this encounter Results * (ABNORMAL) LIPID PROFILE (05/08/2017 10:48 AM EST) Cholesterol 205(H) 0 - 200 mg/dL 05/08/2017 2:22 PM [facility] TRIGLYCERIDES 78 0 - 150 mg/dL 05/08/2017 2:22 PM [facility] HDL CHOLESTEROL 48 >40 mg/dL 8 2:22 PM [facility] LDL CALCULATED 142(H) 0 - 100 mg/dL 05/08/2017 2:23 PM [facility] TC-HDLC RATIO 4 0.0 - 4.4 mg/dL 05/08/2017 2:22 PM [facility] 05/08/2017 10:4 8 AM EST 05/08/2017 10:49 AM EST Janessa Langley MD LAB [facility] [address] [facility] * (ABNORMAL) COMPREHENSIVE METABOLIC PANEL (05/08/2017 10:48 AM EST) Pathologist [facility] GLUCOSE 97 70 - 100 mg/dL 05/08/2017 2:22 PM [facility] Comment: Reference range applicable to fasting specimens only Based on recommendations from the ADA and AACE, the fasting glucose reference range has been changed to 70-100 mg/dL. ??This change is effective August 15, 2009 BUN 16 5 - 25 mg/dL 05/08/2017 2:22 PM [facility] CREAT 0.7 0.7 - 1.5 mg/dL 05/08/2017 2:22 PM [facility] BUN/CREAT RATIO 22.9(H) 6.0 - 20.0 05/08/2017 2:22 PM [facility] GFR > 60 >60 05/08/2017 2:22 PM [facility] Comment: If patient is -Greenlandic, multiply result by 1.21 Chronic Kidney Disease: < 60 ml/min/1.73 square meters Kidney Failure: < 15 ml/min/1.73 square meters Sodium 141 133 - 145 mEq/L 05/08/2017 2:22 PM [facility] Potassium 4.5 3.5 - 5.5 mEq/L 05/08/2017 2:22 PM EST [facility] Chloride 103 96 - 108 mEq/L 05/08/2017 2:22 PM EST [facility] CO2 24.1 21.0 - 32.0 mEq/L 05/08/2017 2:22 PM EST [facility] CALCIUM 8.8 8.5 - 10.5 mg/dL 05/08/2017 2:22 PM EST [facility] TOTAL PROTEIN 6.6 6.0 - 8.3 gm/dL 05/08/2017 2:22 PM EST [facility] Albumin 4.3 3.2 - 5.6 gm/dL 05/08/2017 2:22 PM EST [facility] GLOBULIN 2.3 1.9 - 4.4 gm/dL 05/08/2017 2:22 PM EST [facility] A/G RATIO 1.9 1.1 - 2.3 05/08/2017 2:22 PM EST [facility] BILI,TOTAL 0.3 0.0 - 1.2 mg/dL 05/08/2017 2:22 PM EST [facility] AST (SGOT) 23 10 - 42 U/L 05/08/2017 2:22 PM EST [facility] ALT( SGPT) 24 10 - 60 U/L 05/08/2017 2:22 PM EST [facility] ALK PHOS 70 42 - 121 U/L 05/08/2017 2:22 PM EST [facility] 05/08/2017 10:4 8 AM EST 05/08/2017 10:49 AM EST Janessa Langley MD LAB [facility] [address] [facility] * ANTIBODY, THYROGLOBULIN (05/08/2017 10:48 AM EST) ANTITHYROGLOBULIN AB 18 <60 U/ml 09/2017 1:35 PM EST [facility] 05/08/2017 10:4 8 AM EST 05/08/2017 10:49 AM EST Janessa Langley MD LAB [facility] * (ABNORMAL) THYROID PROFILE W/TSH (05/08/2017 10:48 AM EST) TSH CASCADE 8.81(H) 0.40 - 4.00 uIU/ml 05/08/2017 2:22 PM EST [facility] 05/08/2017 10:4 8 AM EST 05/08/2017 10:49 AM EST Janessa Langley MD LAB Performing Organization Address City/[facility]/ZIP Co de Phone Number [facility] [address] [facility] documented in this encounter Visit Diagnoses Diagnosis History of thyroid cancer- Primary Personal history of malignant neoplasm of thyroid Preventive measure Unspecified prophylactic or treatment measure documented in this encounter Care Teams Help Desk Rep Relationship Specialty Start Date End Date Janessa Langley MD PCP - General Internal Medicine 12/02/15 11/03/19 Mark Caraballo MD PCP - General Family Practice 11/04/19 04/13/20 Janessa Langley MD PCP - General Internal Medicine 04/14/20 08/08/20 Layla Segal MD [address] [place] [address] PCP - General Internal Medicine 08/09/20 10/19/20 Amparo Pressley MD [address] [place] [address] PCP - General Internal Medicine 10/20/20 12/12/20 Layla Segal MD [address] [place] [address] PCP - General Internal Medicine 12/13/20 01/07/22 [facility], Pcp [address] [address] PCP - General Internal Medicine 01/08/22 Isela Roe MD [address] [address] Specialist Cardiology 10/28/20 documented as of this encounter
--- OUTSIDE RECORDS SUMMARY | 2024-06-01 16:49 | XMS_ITS | Encounter Summary ---
Author Organization [facility] Address [address] [place] [address] Care Team Providers Care Central Supply Aide Name Role Phone Mark Alfonso MD Primary Care Provider Unavail able Janessa Langley MD Primary Care Provider Unavaila Mark Valera MD Primary Care Provider Unavail able Janessa Langley MD Primary Care Provider Unavaila Mark Mayo MD Primary Care Provider Unav ailable Janessa Langley MD Primary Care Provider Unavaila Layla Juarez MD Primary Care Provider [phone] Amparo Pressley MD Primary Care Provider Un available Isela Roe MD Unavailable [phone] Layla Segal MD Primary Care Provider [phone] [facility], Pcp Primary Care Provider Unavailabl e Encounter Details Date Type Department Care Team Description 10/14/2013 Gas Pumper Report Medical Records [address] [place] [address] Viky Clifford Social History Tobacco Use Types [...] on filedocumented in this encounter Care Teams Central Supply Aide Relationship Specialty Start Date End Date Mark [...] Medicine 04/14/20 08/08/20 Layla Segal MD [address] [place] [address] PCP - General Internal Medicine 08/09/20 10/19/20 Amparo Pressley MD [address] [place] [address] PCP - General Internal Medicine 10/20/20 12/12/20 Layla Segal MD [address] [place] [address] PCP - General Internal Medicine 12/13/20 01/07/22 [facility], Pcp [address] [address] PCP - General Internal Medicine 01/08/22 Isela Roe MD [address] [address] Specialist Cardiology 10/28/20 documented as of this encounter
--- OUTSIDE RECORDS SUMMARY | 2024-06-01 16:49 | XMS_ITS | Encounter Summary ---
Author Organization [facility] Address [address] [place] [address] Care Team Providers Care Header Dock Name Role Phone Amparo Pressley MD Primary Care Provider Un available Mark Alfonso MD Primary Care Provider Unavail able Janessa Langley MD Primary Care Provider Unavaila Mark Valera MD Primary Care Provider Unavail able Janessa Langley MD Primary Care Provider Unavaila Mark Mayo MD Primary Care Provider Unav ailable Janessa Langley MD Primary Care Provider Unavaila Layla Juarez MD Primary Care Provider [phone] Amparo Pressley MD Primary Care Provider Un available Isela Roe MD Unavailable [phone] Layla Segal MD Primary Care Provider [phone] [facility], Pcp Primary Care Provider Unavailabl e Encounter Details Date Type Department Care Team Description 06/30/2010 Hospital Medical Records [address] [place] [address] Mark Alfonso MD Social History Tobacco Use [...] on filedocumented in this encounter Care Teams Header Dock Relationship Specialty Start Date End Date Amparo [...] Medicine 04/14/20 08/08/20 Layla Segal MD [address] [place] [address] PCP - General Internal Medicine 08/09/20 10/19/20 Amparo Pressley MD PCP - General Internal Medicine 10/20/20 Layla Segal MD [address] [place] [address] PCP - General Internal Medicine 12/13/20 01/07/22 [facility], Pcp [address] [address] PCP - General Internal Medicine 01/08/22 Isela Roe MD [address] [address] Specialist Cardiology 10/28/20 documented as of this encounter
--- OUTSIDE RECORDS SUMMARY | 2024-06-01 16:49 | XMS_ITS | Encounter Summary ---
Author Organization [facility] Address [address] [place] [address] Care Team Providers Care Real Estate Site Analyst Name Role Phone Amparo Pressley MD Primary Care Provider Un available Mark Alfonso MD Primary Care Provider Unavail able Janessa Langley MD Primary Care Provider Unavaila Mark Valera MD Primary Care Provider Unavail able Janessa Langley MD Primary Care Provider Unavaila Mark Mayo MD Primary Care Provider Unav ailable Janessa Langley MD Primary Care Provider Unavaila Layla Juarez MD Primary Care Provider [phone] Amparo Pressley MD Primary Care Provider Un available Isela Roe MD Unavailable [phone] Layla Segal MD Primary Care Provider [phone] [facility], Pcp Primary Care Provider Unavailabl e Encounter Details Date Type Department Care Team Description 08/30/2010 Adjunct History Instructor Report Medical Records [address] [place] [address] Ilan Escobedo Social History Tobacco Use Types [...] on filedocumented in this encounter Care Teams Real Estate Site Analyst Relationship Specialty Start Date End Date Amparo [...] Medicine 04/14/20 08/08/20 Layla Segal MD [address] [place] [address] PCP - General Internal Medicine 08/09/20 10/19/20 Amparo Pressley MD PCP - General Internal Medicine 10/20/20 Layla Segal MD [address] [place] [address] PCP - General Internal Medicine 12/13/20 01/07/22 [facility], Pcp [address] [address] PCP - General Internal Medicine 01/08/22 Isela Roe MD [address] [address] Specialist Cardiology 10/28/20 documented as of this encounter
--- OUTSIDE RECORDS SUMMARY | 2024-06-01 16:49 | XMS_ITS | Encounter Summary ---
Author Organization [facility] Address [address] [place] [address] Care Team Providers Care Senior Vice President Name Role Phone Mark Alfonso MD Primary Care Provider Unavail able Janessa Langley MD Primary Care Provider Unavaila Mark Valera MD Primary Care Provider Unavail able Janessa Langley MD Primary Care Provider Unavaila Mark Mayo MD Primary Care Provider Unav ailable Janessa Langley MD Primary Care Provider Unavaila Layla Juarez MD Primary Care Provider [phone] Amparo Pressley MD Primary Care Provider Un available Isela Roe MD Unavailable [phone] Layla Segal MD Primary Care Provider [phone] [facility]ly [facility], Pcp Primary Care Provider Unavailabl e Encounter Details Date Type Department Care Team Description 08/07/2012 Sales Administration Specialist Report Medical Records [address] [place] [id number] [place] [address] Social History Tobacco Use Types Packs/Day Years [...] filedocumented in this encounter Care Teams Senior Vice President Relationship Specialty Start Date End Date Mark [...] Medicine 04/14/20 08/08/20 Layla Segal MD [address] [place] [address] PCP - General Internal Medicine 08/09/20 10/19/20 Amparo Pressley MD [address] [place] [address] PCP - General Internal Medicine 10/20/20 12/12/20 Layla Segal MD [address] [place] [address] PCP - General Internal Medicine 12/13/20 01/07/22 [facility]ly [facility], Pcp [address] [address] PCP - General Internal Medicine 01/08/22 Isela Roe MD [address] [address] Specialist Cardiology 10/28/20 documented as of this encounter
--- OUTSIDE RECORDS SUMMARY | 2024-06-01 16:49 | XMS_ITS | Encounter Summary ---
Author Organization [facility] Address [address] [place] [address] Care Team Providers Care Social Sciences Research Scientist Name Role Phone Mark Alfonso MD Primary Care Provider Unavail able Janessa Langley MD Primary Care Provider Unavaila Mark Valera MD Primary Care Provider Unavail able Janessa Langley MD Primary Care Provider Unavaila Mark Mayo MD Primary Care Provider Unav ailable Janessa Langley MD Primary Care Provider Unavaila Layla Juarez MD Primary Care Provider [phone] Amparo Pressley MD Primary Care Provider Un available Isela Roe MD Unavailable [phone] Layla Segal MD Primary Care Provider [phone] [facility], [facility] Primary Care Provider Unavailabl e Encounter Details Date Type Department Care Team Description 06/01/2013 Blacksmith Apprentice Report Medical Records [address] [place] [address] Sherry Panda Social History Tobacco Use Types [...] on filedocumented in this encounter Care Teams Social Sciences Research Scientist Relationship Specialty Start Date End Date Mark [...] Medicine 04/14/20 08/08/20 Layla Segal MD [address] [place] [address] PCP - General Internal Medicine 08/09/20 10/19/20 Amparo Pressley MD [address] [place] [address] PCP - General Internal Medicine 10/20/20 12/12/20 Layla Segal MD [address] [place] [address] PCP - General Internal Medicine 12/13/20 01/07/22 [facility], Pcp [address] [address] PCP - General Internal Medicine 01/08/22 Isela Roe MD [address] [address] Specialist Cardiology 10/28/20 documented as of this encounter
--- OUTSIDE RECORDS SUMMARY | 2024-06-01 16:49 | XMS_ITS | Encounter Summary ---
Author Organization [facility] Address [address] [place] [address] Care Team Providers Care Interventional Pain Physician Name Role Phone Isela Roe MD Unavailable [phone] Layla Segal MD Primary Care Provider [phone] Formerly [facility], [facility] Primary Care Provider Unavailabl e Reason for Visit * Reason Comments E-prescribe Rx Request Encounter Details Date Type Department Care Team Description 04/01/2021 Refill Pulmonology - [place] [address] [facility] [address] [place] [address] Morales Richards MD [address] [place] [id number] E-prescribe Rx Request Social History Tobacco Use Types Packs/Day Years Used Date Smoking Tobacco: Former Cigarettes 0.3 26 0 04/01/1989 - 05/02/2015 Smokeless Tobacco: Never Alcohol Use Standard Drinks/Week Comments No 0 (1 standard drink = 0.6 oz pur e alcohol) Sex Assigned at Date Recorded Not on file documented as of this encounter Miscellaneous Notes * Telephone Encounter - Kathy Chambers - 04/11/2021 8:58 AM EST Patient would like script to [...] [employer] HMO F 1+/$0 / Product Type: [id number] documented in this encounter Plan of Treatment Not on file documented as of this encounter Visit Diagnoses Not on filedocumented in this encounter Care Teams Interventional Pain Physician Relationship Specialty Start Date End Date Layla Segal MD [address] [place] [address] PCP - General Internal Medicine 12/13/20 01/07/[address] [address] PCP - General Internal Medicine 01/08/22 Isela Roe MD [address] [place] [address] Specialist Cardiology 10/28/20 documented as of this encounter
--- OUTSIDE RECORDS SUMMARY | 2024-06-01 16:49 | XMS_ITS | Encounter Summary ---
Author Organization [facility] Address [address] [place] [address] Care Team Providers Care Blueprinting And Photocopy Supervisor Name Role Phone Janessa Langley MD Primary Care Provider UnavailMark Guadarrama MD Primary Care Provider Unav ailable Janessa Langley MD Primary Care Provider Unavaila Layla Juarez MD Primary Care Provider [phone] Amparo Pressley MD Primary Care Provider Un available Isela Roe MD Unavailable Layla Segal MD Primary Care Provider [phone] [facility], [facility] Primary Care Provider Unavailabl e Encounter Details Date Type Department Care Team Description 07/16/2018 Telephone Pulmonology - [place] [address] [facility] [address] [place] [address] Morales Richards MD 175 [place] [id number] Social History Tobacco Use Types Packs/Day Years [...] - 07/16/2018 3:12 PM EDT [facility], requested an alternative for Advair 115-21 mcg inhaler or needed a PA. documented in this encounter Plan of Treatment Not on file documented as of this encounter Visit Diagnoses Diagnosis Pulmonary emphysema, unspecified emphysema type (HCC)- Primary documented in this encounter Care Teams Blueprinting And Photocopy Supervisor Relationship Specialty Start Date End Date Janessa Langley MD PCP - General Internal Medicine 12/02/15 11/03/19 Mark Caraballo MD PCP - General Family Practice 11/04/19 04/13/20 Janessa Langley MD PCP - General Internal Medicine 04/14/20 08/08/20 Layla Segal MD [address] [place] [address] PCP - General Internal Medicine 08/09/20 10/19/20 Amparo Pressley MD [address] [place] [address] PCP - General Internal Medicine 10/20/20 12/12/20 Layla Segal MD [address] [place] [address] PCP - General Internal Medicine 12/13/20 01/07/22 [facility], Pcp [address] [address] PCP - General Internal Medicine 01/08/22 Isela Roe MD [address] [address] Specialist Cardiology 10/28/20 documented as of this encounter
--- OUTSIDE RECORDS SUMMARY | 2024-06-01 16:49 | XMS_ITS | Encounter Summary ---
Author Organization [facility] Address [address] [place] [address] Care Team Providers Care Assembler Gold Frame Name Role Phone Janessa Langley MD Primary Care Provider UnavailMark Guadarrama MD Primary Care Provider Unav ailable Janessa Langley MD Primary Care Provider Unavaila Layla Juarez MD Primary Care Provider [phone] Amparo Pressley MD Primary Care Provider Un available Isela Roe MD Unavailable [phone] Layla Segal MD Primary Care Provider [phone] [facility], [facility] Primary Care Provider Unavailabl e Encounter Details Date Type Department Care Team Description 04/19/2017 SCAN Medical Records [address] [place] [address] Mackenzie Hyatt PA-C Social History Tobacco Use Types Packs/Day [...] Name Priority Date/Time Associated Diagnosis Comments OUTSIDE PLAIN FILM Routine 04/19/2017 documented in this encounter Results * OUTSIDE PLAIN FILM (04/19/2017) Provider Abstract RADIOLOGY documented in this encounter Visit Diagnoses Not on filedocumented in this encounter Care Teams Assembler Gold Frame Relationship Specialty Start Date End Date Janessa Langley MD PCP - General Internal Medicine 12/02/15 11/03/19 Mark Caraballo MD PCP - General Family Practice 11/04/19 04/13/20 Janessa Langley MD PCP - General Internal Medicine 04/14/20 08/08/20 Layla Segal MD [address] [place] [address] PCP - General Internal Medicine 08/09/20 10/19/20 Amparo Pressley MD [address] [place] [address] PCP - General Internal Medicine 10/20/20 12/12/20 Layla Segal MD [address] [place] [address] PCP - General Internal Medicine 12/13/20 01/07/22 [facility], Pcp [address] [address] PCP - General Internal Medicine 01/08/22 Isela Roe MD 300 [facility] [address] [place] [address] Specialist Cardiology 10/28/20 documented as of this encounter
--- OUTSIDE RECORDS SUMMARY | 2024-06-01 16:49 | XMS_ITS | Encounter Summary ---
Author Organization [facility] Address [address] [place] [address] Care Team Providers Care Spindle Repairer Name Role Phone Mark Alfonso MD Primary Care Provider Unavail able Janessa Langley MD Primary Care Provider Unavaila Mark Mayo MD Primary Care Provider Unav ailable Janessa Langley MD Primary Care Provider Unavaila Layla Juarez MD Primary Care Provider [phone] Amparo Pressley MD Primary Care Provider Un available Isela Roe MD Unavailable [phone] Layla Segal MD Primary Care Provider [phone] [facility], Pcp Primary Care Provider Unavailabl e Reason for Visit * Reason Onset Date Comments Medication 10/26/2015 Manuel Encounter Details Date Type Department Care Team Description 10/26/2015 Telephone SKID ADZER - [address] [address] Denia Edge MD Medication (Lupron) Social History Tobacco Use Types Packs/Day Years Used Date Smoking Tobacco: Former Cigarettes 0.3 Q uit: 05/02/2015 Smokeless Tobacco: Never Alcohol Use Standard Drinks/Week Comments No 0 (1 standard drink = 0.6 oz pur e alcohol) Sex Assigned at Date Recorded Not on file documented as of this encounter Miscellaneous Notes * Telephone Encounter - Penny Ulloa R.N. - 10/27/2015 11:34 AM EDT Pt's pharmacy called[facility] will arrive tomorrow at [place] SENIOR SHAREPOINT DEVELOPER. documented in this encounter Plan of Treatment Not on file documented as of this encounter Visit Diagnoses Not on filedocumented in this encounter Care Teams Spindle Repairer Relationship Specialty Start Date End Date Mark Alfonso MD PCP - General Internal Medicine 09/09/15 12/01/15 Janessa Langley MD PCP - General Internal Medicine 12/02/15 11/03/19 Mark Caraballo MD PCP - General Family Practice 11/04/19 04/13/20 Janessa Langley MD PCP - General Internal Medicine 04/14/20 08/08/20 Layla Segal MD [address] [place] [address] PCP - General Internal Medicine 08/09/20 10/19/20 Amparo Pressley MD [address] [place] [address] PCP - General Internal Medicine 10/20/20 12/12/20 Layla Segal MD [address] [place] [address] PCP - General Internal Medicine 12/13/20 01/07/22 [facility], Pcp [address] [address] PCP - General Internal Medicine 01/08/22 Isela Roe MD 300 [facility] [address] [place] [address] Specialist Cardiology 10/28/20 documented as of this encounter
--- OUTSIDE RECORDS SUMMARY | 2024-06-01 16:49 | XMS_ITS | Encounter Summary ---
Author Organization [facility] Address [address] [place] [address] Care Team Providers Care Retirement Assistant Name Role Phone Janessa Langley MD Primary Care Provider Mark Thomas MD Primary Care Provider Unav ailable Janessa Langley MD Primary Care Provider Unavaila Layla Juarez MD Primary Care Provider [phone] Amparo Pressley MD Primary Care Provider Un available Isela Roe MD Unavailable [phone] Layla Segal MD Primary Care Provider [phone] [facility] Primary Care [facility] Encounter Details Date Type Department Care Team Description 01/24/2016 [facility] Medical Records [address] [place] [address] Abstract, Provider Social History Tobacco Use Types [...] on filedocumented in this encounter Care Teams Retirement Assistant Relationship Specialty Start Date End Date Janessa Langley MD PCP - General Internal Medicine 12/02/15 11/03/19 Mark Caraballo MD PCP - General Family Practice 11/04/19 04/13/20 Janessa Langley MD PCP - General Internal Medicine 04/14/20 08/08/20 Layla Segal MD [address] [place] [address] PCP - General Internal Medicine 08/09/20 10/19/20 Amparo Pressley MD [address] [place] [address] PCP - General Internal Medicine 10/20/20 12/12/20 Layla Segal MD [address] [place] [address] PCP - General Internal Medicine 12/13/20 01/07/22 [facility], Pcp 300 [facility] [address] [place] [address] PCP - General Internal Medicine 01/08/22 Isela Roe MD 300 [facility] [address] [place] [address] Specialist Cardiology 10/28/20 documented as of this encounter
--- OUTSIDE RECORDS SUMMARY | 2024-06-01 16:49 | XMS_ITS | Encounter Summary ---
Author Organization [facility] Address [address] [place] [address] Care Team Providers Care Cpo Name Role Phone Mark Alfonso MD Primary Care Provider Unavail able Janessa Langley MD Primary Care Provider Unavaila Mark Valera MD Primary Care Provider Unavail able Janessa Langley MD Primary Care Provider Unavaila Mark Mayo MD Primary Care Provider Unav ailable Janessa Langley MD Primary Care Provider Unavaila Layla Juarez MD Primary Care Provider [phone] Amparo Pressley MD Primary Care Provider Un available Isela Roe MD Unavailable [phone] Layla Segal MD Primary Care Provider [phone] [facility], Pcp Primary Care Provider Unavailabl e Encounter Details Date Type Department Care Team Description 01/14/2013 Woodyard Crane Operator Report Medical Records [address] [place] [address] Sara Wakefield MD Social History Tobacco Use [...] on filedocumented in this encounter Care Teams Cpo Relationship Specialty Start Date End Date Mark [...] Medicine 04/14/20 08/08/20 Layla Segal MD [address] [place] [address] PCP - General Internal Medicine 08/09/20 10/19/20 Amparo Pressley MD [address] [place] [address] PCP - General Internal Medicine 10/20/20 12/12/20 Layla Segal MD [address] [place] [address] PCP - General Internal Medicine 12/13/20 01/07/22 [facility], Pcp [address] [address] PCP - General Internal Medicine 01/08/22 Isela Roe MD [address] [address] Specialist Cardiology 10/28/20 documented as of this encounter
--- OUTSIDE RECORDS SUMMARY | 2024-06-01 16:49 | XMS_ITS | Encounter Summary ---
Author Organization [facility] Address [address] [place] [address] Care Team Providers Care Black Powder Glazing Operator Name Role Phone Janessa Langley MD Primary Care Provider UnavailMark Guadarrama MD Primary Care Provider Unav ailable Janessa Langley MD Primary Care Provider Unavaila Layla Juarez MD Primary Care Provider [phone] Amparo Pressley MD Primary Care Provider Un available Isela Roe MD Unavailable [phone] Layla Segal MD Primary Care Provider [phone] [facility], [facility] Primary Care Provider Unavailabl e Encounter Details Date Type Department Care Team Description 12/06/2018 SCAN Medical Records [address] [place] [address] Hernan Flores Social History Tobacco Use Types [...] on filedocumented in this encounter Care Teams Black Powder Glazing Operator Relationship Specialty Start Date End Date Janessa Langley MD PCP - General Internal Medicine 12/02/15 11/03/19 Mark Caraballo MD PCP - General Family Practice 11/04/19 04/13/20 Janessa Langley MD PCP - General Internal Medicine 04/14/20 08/08/20 Layla Segal MD [address] [place] [address] PCP - General Internal Medicine 08/09/20 10/19/20 Amparo Pressley MD [address] [place] [address] PCP - General Internal Medicine 10/20/20 12/12/20 Layla Segal MD [address] [place] [address] PCP - General Internal Medicine 12/13/20 01/07/22 [facility], Pcp [address] [address] PCP - General Internal Medicine 01/08/22 Isela Roe MD [address] [address] Specialist Cardiology 10/28/20 documented as of this encounter
--- OUTSIDE RECORDS SUMMARY | 2024-06-01 16:49 | XMS_ITS | Encounter Summary ---
Author Organization [facility] Address [address] [place] [address] Care Team Providers Care Superintendent Landfill Operations Name Role Phone Janessa Langley MD Primary Care Provider Mark Thomas MD Primary Care Provider Unav ailable Janessa Langley MD Primary Care Provider Unavaila Layla Juarez MD Primary Care Provider [phone] Amparo Pressley MD Primary Care Provider Un available Isela Roe MD Unavailable [phone] Layla Segal MD Primary Care Provider [phone] [facility], [facility] Primary Care Provider Unavailabl e Reason for Referral * EXTERNAL (Routine) - Authorized/Booked Specialty Diagnoses / Procedures Referred By Contlizet t Referred To Contact Neurosurgery Procedures REFERRAL TO NEUROSURGERY Janessa Langley MD [address] [place] [address] Richelle Salguero MD [address] [facility] [address] [place] [address] Referral ID Status Reason Start Date Expiration Date V isits Requested Visits Authorized SEE NOTE Authorized/B ooked 03/19/2016 06/17/2016 1 1 Reason for Visit * Reason Onset Date Comments Flame Annealing Machine Operator Feedback 03/19/2016 neurosurgery Encounter Details Date Type Department Care Team Description 03/19/2016 Telephone Medicine/Pediatrics - [address] [address] Janessa Langley MD Flame Annealing Machine Operator Feedback (neurosurgery) Social History Tobacco Use Types Packs/Day Years Used Date Smoking Tobacco: Former Cigarettes 0.3 Q uit: 05/02/2015 Smokeless Tobacco: Never Alcohol Use Standard Drinks/Week Comments No 0 (1 standard drink = 0.6 oz pur e alcohol) Sex Assigned at Date Recorded Not on file documented as of this encounter Miscellaneous Notes * Telephone Encounter - Janessa Langley MD - 03/19/2016 5:05 PM EST Okay thank you * Telephone Encounter - Verona Toledo - 03/19/2016 1:[address] Janessa Tian You have placed a referral for patient to see neurosurgeon, at [facility] [place]. Unfortunately, their office does not accept this patient's health insurance. ([facility] [place]). Patient was notified and she agreed to be seen at [facility] by or A new order has been pended to you. Please review this new referral request. The referral has been pended. Please complete the following: If approved> sign order If denied>please give instructions and route to your practice nursing pool. Practice nurse should inform referrals and the patient if denied. documented in this encounter Plan of Treatment Not on file documented as of this encounter Visit Diagnoses Not on filedocumented in this encounter Care Teams Superintendent Landfill Operations Relationship Specialty Start Date End Date Janessa Langley MD PCP - General Internal Medicine 12/02/15 11/03/19 Mark Caraballo MD PCP - General Family Practice 11/04/19 04/13/20 Janessa Langley MD PCP - General Internal Medicine 04/14/20 08/08/20 Layla Segal MD [address] [place] [address] PCP - General Internal Medicine 08/09/20 10/19/20 Amparo Pressley MD [address] [place] [address] PCP - General Internal Medicine 10/20/20 12/12/20 Layla Segal MD [address] [place] [address] PCP - General Internal Medicine 12/13/20 01/07/22 [facility], Pcp [address] [address] PCP - General Internal Medicine 01/08/22 Isela Roe MD 300 [facility] [address] [place] [address] Specialist Cardiology 10/28/20 documented as of this encounter
--- OUTSIDE RECORDS SUMMARY | 2024-06-01 16:49 | XMS_ITS | Encounter Summary ---
Author Organization [facility] Address [address] [place] [address] Care Team Providers Care Depot Manager Name Role Phone Isela Roe MD Unavailable [phone] [facility], Pcp Primary Care Provider Unavailabl e Reason for Visit * Reason Onset Date Comments Faxed Order 01/08/2022 Order #[id number] Encounter Details Date Type Department Care Team Description 01/08/2022 Telephone Adult Medicine [address] [phone] Layla Segal MD [address] [place] [phone] Faxed Order (Order #[id number]) Social History Tobacco Use Types Packs/Day Years [...] no longer with Dr. Segal Spoke with [facility] Her orders are coming from a new PCP * Telephone Encounter - Cassy Espinozamariah - 01/08/2022 8:10 AM EDT Faxed order from [facility], Order #[id number]. Please sign, date, and fax back. documented in this encounter Plan of Treatment Not on file documented as of this encounter Visit Diagnoses Not on filedocumented in this encounter Care Teams Depot Manager Relationship Specialty Start Date End Date Community, Pcp [address] [facility] [address] [place] [address] PCP - General Internal Medicine 01/08/22 Isela Roe MD [address] [facility] [address] [place] [address] Specialist Cardiology 10/28/20 documented as of this encounter
--- OUTSIDE RECORDS SUMMARY | 2024-06-01 16:49 | XMS_ITS | Encounter Summary ---
Author Organization [facility] Address [address] [place] [address] Care Team Providers Care Ash Worker Name Role Phone Janessa Langley MD Primary Care Provider Mark Thomas MD Primary Care Provider Unav ailable Janessa Langley MD Primary Care Provider Unavaila Layla Juarez MD Primary Care Provider [phone] Amparo Pressley MD Primary Care Provider Un available Isela Roe MD Unavailable [phone] Layla Segal MD Primary Care Provider [phone] [facility], [facility] Primary Care Provider Unavailabl e Encounter Details Date Type Department Care Team Description 12/06/2015 Pt. Non Urgent Medical Question Medicine/Pediatrics - [address] [address] Janessa Langley MD Social History Tobacco Use [...] on filedocumented in this encounter Care Teams Ash Worker Relationship Specialty Start Date End Date Janessa Langley MD PCP - General Internal Medicine 12/02/15 11/03/19 Mark Caraballo MD PCP - General Family Practice 11/04/19 04/13/20 Janessa Langley MD PCP - General Internal Medicine 04/14/20 08/08/20 Layla Segal MD [address] [place] [address] PCP - General Internal Medicine 08/09/20 10/19/20 Amparo Pressley MD [address] [place] [address] PCP - General Internal Medicine 10/20/20 12/12/20 Layla Segal MD [address] [place] [address] PCP - General Internal Medicine 12/13/20 01/07/22 [facility], [facility] [address] [address] PCP - General Internal Medicine 01/08/22 Isela Roe MD [address] [address] Specialist Cardiology 10/28/20 documented as of this encounter
--- OUTSIDE RECORDS SUMMARY | 2024-06-01 16:49 | XMS_ITS | Encounter Summary ---
Author Organization [facility] Address [address] [place] [address] Care Team Providers Care Treatment Supervisor Name Role Phone Janessa Langley MD Primary Care Provider Mark Thomas MD Primary Care Provider Unav ailable Janessa Langley MD Primary Care Provider Unavaila Layla Juarez MD Primary Care Provider [phone] Amparo Pressley MD Primary Care Provider Un available Isela Roe MD Unavailable [phone] Layla Segal MD Primary Care Provider [phone] [facility] Encounter Details Date Type Department Care Team Description 01/12/2016 [facility] Medical Records [address] [place] [address] Abstract, Provider Social History Tobacco Use Types [...] on filedocumented in this encounter Care Teams Treatment Supervisor Relationship Specialty Start Date End Date Janessa Langley MD PCP - General Internal Medicine 12/02/15 11/03/19 Mark Caraballo MD PCP - General Family Practice 11/04/19 04/13/20 Janessa Langley MD PCP - General Internal Medicine 04/14/20 08/08/20 Layla Segal MD [address] [place] [address] PCP - General Internal Medicine 08/09/20 10/19/20 Amparo Pressley MD [address] [place] [address] PCP - General Internal Medicine 10/20/20 12/12/20 Layla Segal MD [address] [place] [address] PCP - General Internal Medicine 12/13/20 01/07/22 [facility], Pcp 300 [facility] [address] [place] [address] PCP - General Internal Medicine 01/08/22 Isela Roe MD 300 [facility] [address] [place] [address] Specialist Cardiology 10/28/20 documented as of this encounter
--- OUTSIDE RECORDS SUMMARY | 2024-06-01 16:50 | XMS_ITS | Encounter Summary ---
Author Organization [facility] Address [address] [place] [address] Care Team Providers Care Project Accountant Name Role Phone Janessa Langley MD Primary Care Provider Mark Thomas MD Primary Care Provider Unav ailable Janessa Langley MD Primary Care Provider Unavaila Layla Juarez MD Primary Care Provider [phone] Amparo Pressley MD Primary Care Provider Un available Isela Roe MD Unavailable [phone] Layla Segal MD Primary Care Provider [phone] [facility] Primary Care Provider Unavailabl e Encounter Details Date Type Department Care Team Description 05/04/2016 Controlled Substance Plan Medical Records [address] [place] [address] Abstract, Provider Social History Tobacco Use Types [...] on filedocumented in this encounter Care Teams Project Accountant Relationship Specialty Start Date End Date Janessa Langley MD PCP - General Internal Medicine 12/02/15 11/03/19 Mark Caraballo MD PCP - General Family Practice 11/04/19 04/13/20 Janessa Langley MD PCP - General Internal Medicine 04/14/20 08/08/20 Layla Segal MD [address] [place] [address] PCP - General Internal Medicine 08/09/20 10/19/20 Amparo Pressley MD [address] [place] [address] PCP - General Internal Medicine 10/20/20 12/12/20 Layla Segal MD [address] [place] [address] PCP - General Internal Medicine 12/13/20 01/07/22 [facility], Pcp 300 [facility] [address] [place] [address] PCP - General Internal Medicine 01/08/22 Isela Roe MD 300 [facility] [address] [place] [address] Specialist Cardiology 10/28/20 documented as of this encounter
--- OUTSIDE RECORDS SUMMARY | 2024-06-01 16:50 | XMS_ITS | Encounter Summary ---
Author Organization [facility] Address [address] [place] [address] Care Team Providers Care Perishable Fruit Inspector Name Role Phone Isela Reo MD Unavailable Layla Segal MD Primary Care Provider [phone] [facility], Pcp Primary Care Provider Unavailabl e Encounter Details Date Type Department Care Team Description 08/21/2021 Orders Only Medical Records [address] [place] [address] Layla Segal MD [address] [place] [address] [phone] Social History Tobacco Use Types Packs/Day Years [...] this encounter Results * OUTSIDE LAB (08/18/2021) Layla Segal MD LAB documented in this encounter Visit Diagnoses Not on filedocumented in this encounter Care Teams Perishable Fruit Inspector Relationship Specialty Start Date End Date Layla Segal MD [address] [place] [address] PCP - General Internal Medicine 12/13/20 01/07/22 [facility], Pcp [address] [place] [address] PCP - General Internal Medicine 01/08/22 Isela Roe MD [address] [place] [address] Specialist Cardiology 10/28/20 documented as of this encounter
--- OUTSIDE RECORDS SUMMARY | 2024-06-01 16:50 | XMS_ITS | Encounter Summary ---
Author Organization [facility] Address [address] [place] [address] Care Team Providers Care Software Development Test Engineer Name Role Phone Isela Roe MD Unavailable [phone] Layla Segal MD Primary Care Provider [phone] [facility], Pcp Primary Care Provider Unavailabl e Encounter Details Date Type Department Care Team Description 11/17/2021 Orders Only Medical Records [address] [place] [address] She Ornelas PA-C 4 [place] [address] Social History Tobacco Use Types Packs/Day Years [...] filedocumented in this encounter Care Teams Software Development Test Engineer Relationship Specialty Start Date End Date Layla Segal MD [address] [place] [address] PCP - General Internal Medicine 12/13/20 01/07/22 [facility], Pcp [address] [place] [address] PCP - General Internal Medicine 01/08/22 Isela Roe MD [address] [address] Specialist Cardiology 10/28/20 documented as of this encounter
--- OUTSIDE RECORDS SUMMARY | 2024-06-01 16:50 | XMS_ITS | Encounter Summary ---
Author Organization [facility] Address [address] [place] [address] Care Team Providers Care Barber Shop Manager Name Role Phone Mark Alfonso MD Primary Care Provider Unavail able Janessa Langley MD Primary Care Provider Unavaila Mark Valera MD Primary Care Provider Unavail able Janessa Langley MD Primary Care Provider Unavaila Mark Mayo MD Primary Care Provider Unav ailable Janessa Langley MD Primary Care Provider Unavaila Layla Juarez MD Primary Care Provider [phone] Amparo Pressley MD Primary Care Provider Un available Isela Roe MD Unavailable [phone] Layla Segal MD Primary Care Provider [phone] [facility], Pcp Primary Care Provider Unavailabl e Encounter Details Date Type Department Care Team Description 12/16/2013 Cephalometric Tracer Report Medical Records [address] [place] [address] Viky Clifford Social History Tobacco Use Types [...] on filedocumented in this encounter Care Teams Barber Shop Manager Relationship Specialty Start Date End Date Mark Alfonso MD PCP - General Internal Medicine 06/09/12 09/06/15 Janessa Langley MD PCP - General Internal Medicine 09/07/15 09/08/15 Mark Alfonso MD PCP - General Internal Medicine 09/09/15 12/01/15 Janessa Langley MD PCP - General Internal Medicine 12/02/15 11/03/19 Mark aCraballo MD PCP - General Family Practice 11/04/19 04/13/20 Janessa Langley MD PCP - General Internal Medicine 04/14/20 08/08/20 Layla Segal MD [address] [place] [address] PCP - General Internal Medicine 08/09/20 10/19/20 Amparo Pressley MD [address] [place] [address] PCP - General Internal Medicine 10/20/20 12/12/20 Layla Segal MD [address] [place] [address] PCP - General Internal Medicine 12/13/20 01/07/22 [facility], Pcp [address] [address] PCP - General Internal Medicine 01/08/22 Isela Roe MD [address] [address] Specialist Cardiology 10/28/20 documented as of this encounter
--- OUTSIDE RECORDS SUMMARY | 2024-06-01 16:50 | XMS_ITS | Encounter Summary ---
Author Organization [facility] Address [address] [place] [address] Care Team Providers Care Shell Maker Lockstitch Name Role Phone Janessa Langley MD Primary Care Provider UnavailMark Guadarrama MD Primary Care Provider Unav ailable Janessa Langley MD Primary Care Provider Unavaila Layla Juarez MD Primary Care Provider [phone] Amparo Pressley MD Primary Care Provider Un available Isela Roe MD Unavailable [phone] Layla Segal MD Primary Care Provider [phone] [facility], [facility] Primary Care Provider Unavailabl e Encounter Details Date Type Department Care Team Description 10/08/2018 Refill Pulmonology - [place] 175 [facility] [address] [place] [address] Elliot Garner MD [address] [place] [id number] Social History Tobacco Use Types Packs/Day Years [...] Soln [ELLIOT GARNER MD, ] Preferred pharmacy: [facility] [address] [place] [address] Comment: documented in this encounter Plan of Treatment Not on file documented as of this encounter Visit Diagnoses Diagnosis Uncomplicated asthma, unspecified asthma severity, unspecified whether persistent documented in this encounter Care Teams Shell Maker Lockstitch Relationship Specialty Start Date End Date Janessa Langley MD PCP - General Internal Medicine 12/02/15 11/03/19 Mark Caraballo MD PCP - General Family Practice 11/04/19 04/13/20 Janessa Langley MD PCP - General Internal Medicine 04/14/20 08/08/20 Layla Segal MD [address] [place] [address] PCP - General Internal Medicine 08/09/20 10/19/20 Amparo Pressley MD [address] [place] [address] PCP - General Internal Medicine 10/20/20 12/12/20 Layla Segal MD [address] [place] [address] PCP - General Internal Medicine 12/13/20 01/07/22 [facility], Pcp [address] [address] PCP - General Internal Medicine 01/08/22 Isela Roe MD [address] [address] Specialist Cardiology 10/28/20 documented as of this encounter
--- OUTSIDE RECORDS SUMMARY | 2024-06-01 16:50 | XMS_ITS | Encounter Summary ---
Author Organization [facility] Address [address] [place] [address] Care Team Providers Care Supervisor Cutting And Sewing Room Name Role Phone Janessa Langley MD Primary Care Provider Mark Thomas MD Primary Care Provider Unav ailable Janessa Langley MD Primary Care Provider Unavaila Layla Juarez MD Primary Care Provider [phone] Amparo Pressley MD Primary Care Provider Un available Isela Roe MD Unavailable Layla Segal MD Primary Care Provider [phone] [facility] Primary Care Provider Unavailabl e Encounter Details Date Type Department Care Team Description 10/13/2018 Release of Information Medical Records [address] [place] [address] Abstract, Provider Social History Tobacco Use Types [...] filedocumented in this encounter Care Teams Supervisor Cutting And Sewing Room Relationship Specialty Start Date End Date Janessa Langley MD PCP - General Internal Medicine 12/02/15 11/03/19 Mark Caraballo MD PCP - General Family Practice 11/04/19 04/13/20 Janessa Langley MD PCP - General Internal Medicine 04/14/20 08/08/20 Layla Segal MD [address] [place] [address] PCP - General Internal Medicine 08/09/20 10/19/20 Amparo Pressley MD [address] [place] [address] PCP - General Internal Medicine 10/20/20 12/12/20 Layla Segal MD [address] [place] [address] PCP - General Internal Medicine 12/13/20 01/07/22 [facility], Pcp [address] [address] PCP - General Internal Medicine 01/08/22 Isela Roe MD 300 [facility] [address] [place] [address] Specialist Cardiology 10/28/20 documented as of this encounter
--- OUTSIDE RECORDS SUMMARY | 2024-06-01 16:50 | XMS_ITS | Encounter Summary ---
Author Organization [facility] Address [address] [place] [address] Care Team Providers Care Drain Technician Name Role Phone Janessa Langley MD Primary Care Provider Mark Thomas MD Primary Care Provider Unav ailable Janessa Langley MD Primary Care Provider Unavaila Layla Juarez MD Primary Care Provider [phone] Amparo Pressley MD Primary Care Provider Un available Isela Roe MD Unavailable [phone] Layla Segal MD Primary Care Provider [phone] [facility] Primary Care Provider Unavailabl e Encounter Details Date Type Department Care Team Description 09/11/2017 Hospital Medical Records [address] [place] [address] Chris Gerber MD Social History Tobacco Use [...] on filedocumented in this encounter Care Teams Drain Technician Relationship Specialty Start Date End Date Janessa Langley MD PCP - General Internal Medicine 12/02/15 11/03/19 Mark Caraballo MD PCP - General Family Practice 11/04/19 04/13/20 Janessa Langley MD PCP - General Internal Medicine 04/14/20 08/08/20 Layla Segal MD [address] [place] [address] PCP - General Internal Medicine 08/09/20 10/19/20 Amparo Pressley MD [address] [place] [address] PCP - General Internal Medicine 10/20/20 12/12/20 Layla Segal MD [address] [place] [address] PCP - General Internal Medicine 12/13/20 01/07/22 [facility], Pcp [address] [address] PCP - General Internal Medicine 01/08/22 Isela Roe MD 300 [facility] [address] [place] [address] Specialist Cardiology 10/28/20 documented as of this encounter
--- OUTSIDE RECORDS SUMMARY | 2024-06-01 16:50 | XMS_ITS | Encounter Summary ---
Author Organization [facility] Address [address] [place] [address] Care Team Providers Care Fitness Sales Associate Name Role Phone Janessa Langley MD Primary Care Provider Mark Thomas MD Primary Care Provider Unav ailable Janessa Langley MD Primary Care Provider Unavaila Layla Juarez MD Primary Care Provider [phone] Amparo Pressley MD Primary Care Provider Un available Isela Roe MD Unavailable [phone] Layla Segal MD Primary Care Provider [phone] [facility] Primary Care Provider Unavailabl e Encounter Details Date Type Department Care Team Description 07/03/2017 Fnps Report Medical Records [address] [place] [address] Nolan Ruiz Social History Tobacco Use Types Packs/Day Years [...] on filedocumented in this encounter Care Teams Fitness Sales Associate Relationship Specialty Start Date End Date Janessa Langley MD PCP - General Internal Medicine 12/02/15 11/03/19 Mark Caraballo MD PCP - General Family Practice 11/04/19 04/13/20 Janessa Langley MD PCP - General Internal Medicine 04/14/20 08/08/20 Layla Segal MD [address] [place] [address] PCP - General Internal Medicine 08/09/20 10/19/20 Amparo Pressley MD [address] [place] [address] PCP - General Internal Medicine 10/20/20 12/12/20 Layla Segal MD [address] [place] [address] PCP - General Internal Medicine 12/13/20 01/07/22 [facility], Pcp [address] [address] PCP - General Internal Medicine 01/08/22 Isela Roe MD 300 [facility] [address] [place] [address] Specialist Cardiology 10/28/20 documented as of this encounter
--- OUTSIDE RECORDS SUMMARY | 2024-06-01 16:50 | XMS_ITS | Encounter Summary ---
Author Organization [facility] Address [address] [place] [address] Care Team Providers Care Sheet Metal Helper Name Role Phone Isela Roe MD Unavailable [phone] Layla Segal MD Primary Care Provider [phone] [facility], [facility] Primary Care Provider Unavailabl e Reason for Visit * Reason Comments E-prescribe Rx Request Encounter Details Date Type Department Care Team Description 08/21/2021 Refill Adult Medicine [address] [address] Wendy Taylor PA-C [address] [place] [address] E-prescribe Rx Request Social History Tobacco Use Types Packs/Day Years Used Date Smoking Tobacco: Former Cigarettes 0.3 26 0 04/01/1989 - 05/02/2015 Smokeless Tobacco: Never Alcohol Use Standard Drinks/Week Comments No 0 (1 standard drink = 0.6 oz pur e alcohol) Sex Assigned at Date Recorded Not on file documented as of this encounter Miscellaneous Notes * Telephone Encounter - Debra Lazaro M.A. - 08/22/2021 4:19 PM EDT Prescribed at [facility] 06/16/21 NOV 11/21/21 Please review if refill is appropriate, pharmacy refill request. Thank you * Telephone Encounter - Qi Middleton - 08/22/2021 9:10 AM EDT Patient would like script to be: E-PRESCRIBED/FAXED TO PHARMACY WHEN WAS THE PATIENT'S LAST APPOINTMENT IN ADULT MEDICINE? 06/16/21 WHEN WAS THE LAST TIME THE PATIENT SAW THEIR PCP? 10/19/20 Does patient have an upcoming appointment? Yes 11/21/21 (THE MEDICATION REQUESTED IS ON THE MED [...] on filedocumented in this encounter Care Teams Sheet Metal Helper Relationship Specialty Start Date End Date Layla Segal MD [address] [place] [address] PCP - General Internal Medicine 12/13/20 [facility]07[facility] [address] [place] [address] PCP - General Internal Medicine 01/08/22 Isela Roe MD [address] [place] [address] Specialist Cardiology 10/28/20 documented as of this encounter
--- OUTSIDE RECORDS SUMMARY | 2024-06-01 16:50 | XMS_ITS | Encounter Summary ---
Author Organization [facility] Address [address] [place] [address] Care Team Providers Care Auto Striper Name Role Phone Isela Roe MD Unavailable [phone] Layla Segal MD Primary Care Provider [phone] [facility], Pcp Primary Care Provider Unavailabl e Encounter Details Date Type Department Care Team Description 11/17/2021 Orders Only Adult Medicine [address] [phone] She Ornelas PA-C [address] [place] [address] [phone] Social History Tobacco Use Types Packs/Day Years [...] filedocumented in this encounter Care Teams Auto Striper Relationship Specialty Start Date End Date Layla Segal MD [address] [place] [address] [id number] PCP - General Internal Medicine 12/13/20 01/07/22 [facility], Pcp [address] [place] [address] PCP - General Internal Medicine 01/08/22 Isela Roe MD 300 [facility] 154 [place] [address] Specialist Cardiology 10/28/20 documented as of this encounter
--- OUTSIDE RECORDS SUMMARY | 2024-06-01 16:50 | XMS_ITS | Encounter Summary ---
Author Organization [facility] Address [address] [place] [address] Care Team Providers Care Applications Project Manager Name Role Phone Mark Alfonso MD Primary Care Provider Unavail able Janessa Langley MD Primary Care Provider Unavaila Mark Valera MD Primary Care Provider Unavail able Janessa Langley MD Primary Care Provider Unavaila Mark Mayo MD Primary Care Provider Unav ailable Janessa Langley MD Primary Care Provider Unavaila Layla Juarez MD Primary Care Provider [phone] Amparo Pressley MD Primary Care Provider Un available Isela Roe MD Unavailable [phone] Layla Segal MD Primary Care Provider [phone] [facility], [facility] Primary Care Provider Unavailabl e Encounter Details Date Type Department Care Team Description 12/17/2013 Quality Improvement Engineer Report Medical Records [address] [place] [address] Sherry Panda Social History Tobacco Use Types [...] on filedocumented in this encounter Care Teams Applications Project Manager Relationship Specialty Start Date End Date [...] Medicine 04/14/20 08/08/20 Layla Segal MD [address] [place] [address] PCP - General Internal Medicine 08/09/20 10/19/20 Amparo Pressley MD [address] [place] [address] PCP - General Internal Medicine 10/20/20 12/12/20 Layla Segal MD [address] [place] [address] PCP - General Internal Medicine 12/13/20 01/07/22 [facility], Pcp [address] [address] PCP - General Internal Medicine 01/08/22 Isela Roe MD [address] [address] Specialist Cardiology 10/28/20 documented as of this encounter
--- OUTSIDE RECORDS SUMMARY | 2024-06-01 16:50 | XMS_ITS | Encounter Summary ---
Author Organization [facility] Address [address] [place] [address] Care Team Providers Care Tool Keeper Name Role Phone Isela Roe MD Unavailable [phone] Layla Segal MD Primary Care Provider [phone] [facility], Pcp Primary Care Provider Unavailabl e Encounter Details Date Type Department Care Team Description 09/05/2021 Orders Only Medical Records [address] [place] [address] Yomi Garcia, PA-C [address] [place] [address] Social History Tobacco Use Types Packs/Day Years [...] on filedocumented in this encounter Care Teams Tool Keeper Relationship Specialty Start Date End Date Layla Segal MD [address] [place] [address] PCP - General Internal Medicine 12/13/20 01/07/[address] [address] PCP - General Internal Medicine 01/08/22 Isela Roe MD [address] [place] [address] Specialist Cardiology 10/28/20 documented as of this encounter
--- OUTSIDE RECORDS SUMMARY | 2024-06-01 16:50 | XMS_ITS | Encounter Summary ---
Author Organization [facility] Address [address] [place] [address] Care Team Providers Care Controls Engineer Name Role Phone Janessa Langley MD Primary Care Provider Mark Thomas MD Primary Care Provider Unav ailable Janessa Langley MD Primary Care Provider Unavaila Layla Juarez MD Primary Care Provider [phone] Amparo Pressley MD Primary Care Provider Un available Isela Roe MD Unavailable [phone] Layla Segal MD Primary Care Provider [phone] [facility] Primary Care Provider Unavailabl e Reason for Visit * Reason Onset Date Comments Prior Authorization 07/12/2017 Encounter Details Date Type Department Care Team Description 07/12/2017 Telephone Medicine/Pediatrics - [address] [phone] Janessa Langley MD Prior Authorization Social History Tobacco Use Types Packs/Day Years Used Date Smoking Tobacco: Former Cigarettes 0.3 Q uit: 05/02/2015 Smokeless Tobacco: Never Alcohol Use Standard Drinks/Week Comments No 0 (1 standard drink = 0.6 oz pur e alcohol) Sex Assigned at Date Recorded Not on file documented as of this encounter Miscellaneous Notes * Telephone Encounter - Denia Yuan M.A. - 08/14/2017 1:52 PM EDT Pt was tried on percocet. * Telephone Encounter - Leyn Ratliff M.A. - 07/16/2017 8:51 AM EDT Spoke to ins and they state the tramadol 50 was denied be cause they will not cover concurrent use of 2 long acting or short acting opioids, she is also on the vicodin. Please reply back to p [id number] Prior Auth pool Leny Ratliff M.A. Regional Prior Authorizations Ext [id number] * Telephone Encounter - Heidi Vigil - 07/12/2017 4:13 PM EDT Pre Authorization for Medication-do not complete and send this encounter unless you have the fax from the pharmacy. Is this a Cover My Meds request: Yes -- Jordan Code [id number] Name of Medication tramadol Dose of Medication How does patient take this med? What Pharmacy did the fax come from: [facility] fax #: [phone] [employer] Information from fax: What Prescription Plan does the patient have? BIN/PCN if applicable: Cardholder ID:[id number] Person Code: Relationship Code: Help desk phone: RACHEAL faxed to nayeli [facility] dept. documented in this encounter Plan of Treatment Not on file documented as of this encounter Visit Diagnoses Not on filedocumented in this encounter Care Teams Controls Engineer Relationship Specialty Start Date End Date Janessa Langley MD PCP - General Internal Medicine 12/02/15 11/03/19 Mark Caraballo MD PCP - General Family Practice 11/04/19 04/13/20 Janessa Langley MD PCP - General Internal Medicine 04/14/20 08/08/20 Layla Segal MD [address] [place] [address] PCP - General Internal Medicine 08/09/20 10/19/20 Amparo Pressley MD [address] [place] [address] PCP - General Internal Medicine 10/20/20 12/12/20 Layla Segal MD [address] [place] [address] PCP - General Internal Medicine 12/13/20 01/07/22 [facility], Pcp [address] [address] PCP - General Internal Medicine 01/08/22 Isela Roe MD 300 [facility] [address] [place] [address] Specialist Cardiology 10/28/20 documented as of this encounter
--- OUTSIDE RECORDS SUMMARY | 2024-06-01 16:50 | XMS_ITS | Encounter Summary ---
Author Organization [facility] Address [address] [place] [address] Care Team Providers Care First Calender Worker Name Role Phone Janessa Langley MD Primary Care Provider UnavailMark Guadarrama MD Primary Care Provider Unav ailable Janessa Langley MD Primary Care Provider Unavaila Layla Juarez MD Primary Care Provider [phone] Amparo Pressley MD Primary Care Provider Un available Isela Roe MD Unavailable [phone] Layla Segal MD Primary Care Provider [phone] [facility], [facility] Primary Care Provider Unavailabl e Encounter Details Date Type Department Care Team Description 05/24/2016 SCAN Medical Records [address] [place] [address] Boubacar Browning MD [address] [place] [phone] Social History Tobacco Use Types Packs/Day [...] this encounter Results * OUTSIDE CT (05/24/2016) Provider Abstract RADIOLOGY documented in this encounter Visit Diagnoses Not on filedocumented in this encounter Care Teams First Calender Worker Relationship Specialty Start Date End Date Janessa Langley MD PCP - General Internal Medicine 12/02/15 11/03/19 Mark Caraballo MD PCP - General Family Practice 11/04/19 04/13/20 Janessa Langley MD PCP - General Internal Medicine 04/14/20 08/08/20 Layla Segal MD [address] [place] [address] PCP - General Internal Medicine 08/09/20 10/19/20 Amparo Pressley MD [address] [place] [address] PCP - General Internal Medicine 10/20/20 12/12/20 Layla Segal MD [address] [place] [address] PCP - General Internal Medicine 12/13/20 01/07/22 [facility], Pcp [address] [address] PCP - General Internal Medicine 01/08/22 Isela Roe MD [address] [address] Specialist Cardiology 10/28/20 documented as of this encounter
--- OUTSIDE RECORDS SUMMARY | 2024-06-01 16:50 | XMS_ITS | Encounter Summary ---
Author Organization [facility] Address [address] [place] [address] Care Team Providers Care Diver'S Tender Name Role Phone Janessa Langley MD Primary Care Provider Mark Thomas MD Primary Care Provider Unav ailable Janessa Langley MD Primary Care Provider Unavaila Layla Juarez MD Primary Care Provider [phone] Amparo Pressley MD Primary Care Provider Un available Isela Roe MD Unavailable [phone] Layla Segal MD Primary Care Provider [phone] [facility] Primary Care Provider Unavailabl e Encounter Details Date Type Department Care Team Description 05/31/2017 Release of Information Medical Records [address] [place] [address] Abstract, Provider Social History Tobacco Use Types [...] on filedocumented in this encounter Care Teams Diver'S Tender Relationship Specialty Start Date End Date Janessa Langley MD PCP - General Internal Medicine 12/02/15 11/03/19 Mark Caraballo MD PCP - General Family Practice 11/04/19 04/13/20 Janessa Langley MD PCP - General Internal Medicine 04/14/20 08/08/20 Layla Segal MD [address] [place] [address] PCP - General Internal Medicine 08/09/20 10/19/20 Amparo Pressley MD [address] [place] [address] PCP - General Internal Medicine 10/20/20 12/12/20 Layla Segal MD [address] [place] [address] PCP - General Internal Medicine 12/13/20 01/07/22 [facility], Pcp 300 [facility] [address] [place] [address] PCP - General Internal Medicine 01/08/22 Isela Roe MD 300 [facility] [address] [place] [address] Specialist Cardiology 10/28/20 documented as of this encounter
--- OUTSIDE RECORDS SUMMARY | 2024-06-01 16:50 | XMS_ITS | Encounter Summary ---
Author Organization [facility] Address [address] [place] [address] Care Team Providers Care Coal Mill Operator Name Role Phone Janessa Langley MD Primary Care Provider UnavailMark Guadarrama MD Primary Care Provider Unav ailable Janessa Langley MD Primary Care Provider Unavaila Layla Juarez MD Primary Care Provider [phone] Amparo Pressley MD Primary Care Provider Un available Isela Roe MD Unavailable [phone] Layla Segal MD Primary Care Provider [phone] [facility] Primary Care Provider Unavailabl e Reason for Visit * Reason Onset Date Comments diabetes 02/24/2019 Encounter Details Date Type Department Care Team Description 02/24/2019 Telephone General Surgery - [place] 175 [facility] [address] [place] [phone] Jessie Nicholas MS,RDN,LDN 175 [facility] [address] [place] [address] diabetes Social History Tobacco Use [...] on filedocumented in this encounter Care Teams Coal Mill Operator Relationship Specialty Start Date End Date Janessa Langley MD PCP - General Internal Medicine 12/02/15 11/03/19 Mark Caraballo MD PCP - General Family Practice 11/04/19 04/13/20 Janessa Langley MD PCP - General Internal Medicine 04/14/20 08/08/20 Layla Segal MD [address] [place] [address] PCP - General Internal Medicine 08/09/20 10/19/20 Amparo Pressley MD [address] [place] [address] PCP - General Internal Medicine 10/20/20 12/12/20 Layla Segal MD [address] [place] [address] PCP - General Internal Medicine 12/13/20 01/07/22 [facility] Pcp [address] [address] PCP - General Internal Medicine 01/08/22 Isela Roe MD [address] [address] Specialist Cardiology 10/28/20 documented as of this encounter
--- OUTSIDE RECORDS SUMMARY | 2024-06-01 16:50 | XMS_ITS | Encounter Summary ---
Author Organization [facility] Address [address] [place] [address] Care Team Providers Care Miner Name Role Phone Janessa Langley MD Primary Care Provider UnavailMark Guadarrama MD Primary Care Provider Unav ailable Janessa Langley MD Primary Care Provider Unavaila Layla Juarez MD Primary Care Provider [phone] Amparo Pressley MD Primary Care Provider Un available Isela Roe MD Unavailable [phone] Layla Segal MD Primary Care Provider [phone] [facility] Primary Care Provider Unavailabl e Reason for Visit * Reason Onset Date Comments Prior Authorization 07/24/2017 oxycodone-ac etaminophen (PERCOCET) 5-325 MG per tablet Encounter Details Date Type Department Care Team Description 07/24/2017 Telephone Medicine/Pediatrics [address] [address] Uma Martinez PA-C Prior Authorization (oxycodone-acetaminophen (PERCOCET) [...] 8:27 AM EDT Spoke to Violeta at [facility] this medication has been approved from 07/27/17 until 07/27/18 * Telephone Encounter - Suma Means M.A. - 07/26/2017 1:33 PM EDT Prior Authorization from Cover My Meds was denied for Oxycodone-acetaminophen. Did Prior auth again on [facility] Opiod request form on paper [...] My Meds request: Yes -- Jordan Code [id number] Name of Medication oxycodone-acetaminophen (PERCOCET) Dose of Medication 5-325 MG per tablet How does patient take this med? Take 1 tab every 8 hours as needed for pain. What Pharmacy did the fax come from: [facility] Pharmacy fax #: [phone] [employer] Information from fax: What Prescription Plan does the patient have? N/A BIN/PCN if applicable: N/A Cardholder ID:N/A Person Code: N/A Relationship Code: N/A Help desk phone: N/A PRIOR AUTH FAXED TO [phone] documented in this encounter Plan of Treatment Not on file documented as of this encounter Visit Diagnoses Not on filedocumented in this encounter Care Teams Miner Relationship Specialty Start Date End Date Janessa Langley MD PCP - General Internal Medicine 12/02/15 11/03/19 Mark Caraballo MD PCP - General Family Practice 11/04/19 04/13/20 Janessa Langley MD PCP - General Internal Medicine 04/14/20 08/08/20 Layla Segal MD [address] [place] [address] PCP - General Internal Medicine 08/09/20 10/19/20 Amparo Pressley MD [address] [place] [address] PCP - General Internal Medicine 10/20/20 12/12/20 Layla Segal MD [address] [place] [address] PCP - General Internal Medicine 12/13/20 01/07/22 [facility], Pcp [address] [address] PCP - General Internal Medicine 01/08/22 Isela Roe MD [address] [address] Specialist Cardiology 10/28/20 documented as of this encounter
--- OUTSIDE RECORDS SUMMARY | 2024-06-01 16:50 | XMS_ITS | Encounter Summary ---
Author Organization [facility] Address [address] [place] [address] Care Team Providers Care Fiberglass Boat Parts Finisher Name Role Phone Janessa Langley MD Primary Care Provider UnavailMark Guadarrama MD Primary Care Provider Unav ailable Janessa Langley MD Primary Care Provider Unavaila Layla Juarez MD Primary Care Provider [phone] Amparo Pressley MD Primary Care Provider Un available Isela Roe MD Unavailable [phone] Layla Segal MD Primary Care Provider [phone] [facility] Primary Care Provider Unavailabl e Reason for Visit * Reason Onset Date Comments Turntable Worker Feedback 07/25/2017 urology Encounter Details Date Type Department Care Team Description 07/25/2017 Telephone Medicine/Pediatrics - [address] [phone] Janessa Langley MD Turntable Worker Feedback (urology) Social History Tobacco Use Types Packs/Day Years Used Date Smoking Tobacco: Former Cigarettes 0.3 Q uit: 05/02/2015 Smokeless Tobacco: Never Alcohol Use Standard Drinks/Week Comments No 0 (1 standard drink = 0.6 oz pur e alcohol) Sex Assigned at Date Recorded Not on file documented as of this encounter Miscellaneous Notes * Telephone Encounter - Uma Martinez PA-C - 07/25/2017 11:56 AM EDT Sent mychart message to patient to ask where she would like to be seen * Telephone Encounter - Asuncion Mable - 07/25/2017 11:19 AM EDT Uma, Please see encounter 07/16/17 as [facility] does not have a urology department. The patient was seen by [facility] on 08-09-[address] Schwarz. If this patient still needs to be seen a new order will need to be pended but she can not go to [facility] as they do not have a urology department. Thank you, Asuncion Referrals Coordinator [facility] documented in this encounter Plan of Treatment Not on file documented as of this encounter Visit Diagnoses Not on filedocumented in this encounter Care Teams Fiberglass Boat Parts Finisher Relationship Specialty Start Date End Date Janessa Langley MD PCP - General Internal Medicine 12/02/15 11/03/19 Mark Caraballo MD PCP - General Family Practice 11/04/19 04/13/20 Janessa Langley MD PCP - General Internal Medicine 04/14/20 08/08/20 Layla Segal MD [address] [place] [address] PCP - General Internal Medicine 08/09/20 10/19/20 Amparo Pressley MD [address] [place] [address] PCP - General Internal Medicine 10/20/20 12/12/20 Layla Segal MD [address] [place] [address] PCP - General Internal Medicine 12/13/20 01/07/22 [facility], Pcp [address] [address] PCP - General Internal Medicine 01/08/22 Isela Roe MD [address] [address] Specialist Cardiology 10/28/20 documented as of this encounter
--- OUTSIDE RECORDS SUMMARY | 2024-06-01 16:50 | XMS_ITS | Encounter Summary ---
Author Organization [facility] Address [address] [place] [address] Care Team Providers Care Cupola Repairer Name Role Phone Janessa Langley MD Primary Care Provider UnavailMark Guadarrama MD Primary Care Provider Unav ailable Janessa Langley MD Primary Care Provider Unavaila Layla Juarez MD Primary Care Provider [phone] Amparo Pressley MD Primary Care Provider Un available Isela Roe MD Unavailable [phone] Layla Segal MD Primary Care Provider [phone] [facility] Primary Care Provider Unavailabl e Encounter Details Date Type Department Care Team Description 06/06/2016 Orders Only Pulmonology [address] [place] [address] Boubacar Browning MD [address] [phone] History of thyroid cancer; Uncomplicated severe persistent asthma; Former smoker; Restrictive lung disease secondary to obesity Social History Tobacco Use Types Packs/Day Years [...] Procedure Name Priority Date/Time Associated Diagnosis Comments CHG BLOOD GASES ANY COMBINATION PH PCO2 PO2 CO2 HCO3 Routine 05/24/2016 History of thyroid cancer Uncomplicated severe persistent asthma Former smoker Restrictive lung disease secondary to obesity documented in this encounter Results * ASSAY, BLOOD GASES: PH/PO2/PCO2/ETC (05/24/2016) 05/24/2016 Boubacar Browning MD LAB [facility] [employer] documented in this encounter Visit Diagnoses Diagnosis History of thyroid cancer Personal history of malignant neoplasm of thyroid Uncomplicated severe persistent asthma Former smoker Personal history of tobacco use, presenting hazards to health Restrictive lung disease secondary to obesity Other diseases of lung, not elsewhere classified documented in this encounter Care Teams Cupola Repairer Relationship Specialty Start Date End Date Janessa Langley MD PCP - General Internal Medicine 12/02/15 11/03/19 Mark Caraballo MD PCP - General Family Practice 11/04/19 04/13/20 Janessa Langley MD PCP - General Internal Medicine 04/14/20 08/08/20 Layla Segal MD [address] [place] [address] PCP - General Internal Medicine 08/09/20 10/19/20 Amparo Perssley MD [address] [place] [address] PCP - General Internal Medicine 10/20/20 12/12/20 Layla Segal MD [address] [place] [address] PCP - General Internal Medicine 12/13/20 01/07/22 [facility], Pcp [address] [address] PCP - General Internal Medicine 01/08/22 Isela Roe MD [address] [address] Specialist Cardiology 10/28/20 documented as of this encounter
--- OUTSIDE RECORDS SUMMARY | 2024-06-01 16:50 | XMS_ITS | Encounter Summary ---
Author Organization [facility] Address [address] [place] [address] Care Team Providers Care Switchboard Operator Supervisor Name Role Phone Janessa Langley MD Primary Care Provider UnavailMark Guadarrama MD Primary Care Provider Unav ailable Janessa Langley MD Primary Care Provider Unavaila Layla Juarez MD Primary Care Provider [phone] Amparo Pressley MD Primary Care Provider Un available Isela Roe MD Unavailable [phone] Layla Segal MD Primary Care Provider [phone] [facility] Primary Care Provider Unavailabl e Encounter Details Date Type Department Care Team Description 05/25/2016 Orders Only Medical Records [address] [place] [address] Boubacar Browning MD [address] [place] [phone] Social History Tobacco Use Types Packs/Day [...] on filedocumented in this encounter Care Teams Switchboard Operator Supervisor Relationship Specialty Start Date End Date Janessa Langley MD PCP - General Internal Medicine 12/02/15 11/03/19 Mark Caraballo MD PCP - General Family Practice 11/04/19 04/13/20 Janessa Langley MD PCP - General Internal Medicine 04/14/20 08/08/20 Layla Segal MD [address] [place] [address] PCP - General Internal Medicine 08/09/20 10/19/20 Amparo Pressley MD [address] [place] [address] PCP - General Internal Medicine 10/20/20 12/12/20 Layla Segal MD [address] [place] [address] PCP - General Internal Medicine 12/13/20 01/07/22 [facility], Pcp [address] [address] PCP - General Internal Medicine 01/08/22 Isela Roe MD [address] [address] Specialist Cardiology 10/28/20 documented as of this encounter
--- OUTSIDE RECORDS SUMMARY | 2024-06-01 16:50 | XMS_ITS | Encounter Summary ---
Author Organization [facility] Address [address] [place] [address] Care Team Providers Care Web Press Operator Name Role Phone Janessa Langley MD Primary Care Provider Mark Thomas MD Primary Care Provider Unav ailable Janessa Langley MD Primary Care Provider Unavaila Layla Juarez MD Primary Care Provider [phone] Amparo Pressley MD Primary Care Provider Un available Isela Roe MD Unavailable [phone] Layla Segal MD Primary Care Provider [phone] [facility] Primary Care Provider Unavailabl e Encounter Details Date Type Department Care Team Description 02/19/2019 Release of Information Medical Records [address] [place] [address] Abstract, Provider Social History Tobacco Use Types [...] on filedocumented in this encounter Care Teams Web Press Operator Relationship Specialty Start Date End Date Janessa Langley MD PCP - General Internal Medicine 12/02/15 11/03/19 Mark Caraballo MD PCP - General Family Practice 11/04/19 04/13/20 Janessa Langley MD PCP - General Internal Medicine 04/14/20 08/08/20 Layla Segal MD [address] [place] [address] PCP - General Internal Medicine 08/09/20 10/19/20 Amparo Pressley MD [address] [place] [address] PCP - General Internal Medicine 10/20/20 12/12/20 Layla Segal MD [address] [place] [address] PCP - General Internal Medicine 12/13/20 01/07/22 [facility], Pcp [address] [address] PCP - General Internal Medicine 01/08/22 Isela Roe MD 300 [facility] [address] [place] [address] Specialist Cardiology 10/28/20 documented as of this encounter
--- OUTSIDE RECORDS SUMMARY | 2024-06-01 16:50 | XMS_ITS | Encounter Summary ---
Author Organization [facility] Address [address] [place] [address] Care Team Providers Care Anodize Machine Operator Name Role Phone Isela Roe MD Unavailable [phone] Layla Segal MD Primary Care Provider [phone] [facility], Pcp Primary Care Provider Unavailabl e Encounter Details Date Type Department Care Team Description 10/04/2021 Refill Allergy [place] [address] [place] [phone] Uma Martinez PA-C Social History Tobacco Use [...] on filedocumented in this encounter Care Teams Anodize Machine Operator Relationship Specialty Start Date End Date Layla Segal MD [address] [place] [address] PCP - General Internal Medicine 12/13/20 01/07/22 [facility], Pcp [address] [place] [address] PCP - General Internal Medicine 01/08/22 Isela Roe MD 300 [facility] [address] [place] [address] Specialist Cardiology 10/28/20 documented as of this encounter
--- OUTSIDE RECORDS SUMMARY | 2024-06-01 16:50 | XMS_ITS | Encounter Summary ---
Author Organization [facility] Address [address] [place] [address] Care Team Providers Care Credit Risk Associate Name Role Phone Janessa Langley MD Primary Care Provider Mark Thomas MD Primary Care Provider Unav ailable Janessa Langley MD Primary Care Provider Unavaila Layla Juarez MD Primary Care Provider [phone] Amparo Pressley MD Primary Care Provider Un available Isela Roe MD Unavailable [phone] Layla Segal MD Primary Care Provider [phone] [facility] Primary Care Provider Unavailabl e Encounter Details Date Type Department Care Team Description 09/13/2017 Release of Information Medical Records [address] [place] [address] Abstract, Provider Social History Tobacco Use Types [...] on filedocumented in this encounter Care Teams Credit Risk Associate Relationship Specialty Start Date End Date Janessa Langley MD PCP - General Internal Medicine 12/02/15 11/03/19 Mark Caraballo MD PCP - General Family Practice 11/04/19 04/13/20 Janessa Langley MD PCP - General Internal Medicine 04/14/20 08/08/20 Layla Segal MD [address] [place] [address] PCP - General Internal Medicine 08/09/20 10/19/20 Amparo Pressley MD [address] [place] [address] PCP - General Internal Medicine 10/20/20 12/12/20 Layla Segal MD [address] [place] [address] PCP - General Internal Medicine 12/13/20 01/07/22 [facility], Pcp 300 [facility] [address] [place] [address] PCP - General Internal Medicine 01/08/22 Isela Roe MD 300 [facility] [address] [place] [address] Specialist Cardiology 10/28/20 documented as of this encounter
--- OUTSIDE RECORDS SUMMARY | 2024-06-01 16:50 | XMS_ITS | Encounter Summary ---
[facility] Organization [facility] Address [address] [place] [address] Care Team Providers Care Hyperbaric Nurse Name Role Phone Janessa Langley MD Primary Care Provider Mark Thomas MD Primary Care Provider Unav ailable Janessa Langley MD Primary Care Provider Unavaila Layla Juarez MD Primary Care Provider [phone] Amparo Pressley MD Primary Care Provider Un available Isela Roe MD Unavailable [phone] Layla Segal MD Primary Care Provider [phone] [facility] Primary Care Provider Unavailabl e Encounter Details Date Type Department Care Team Description 04/21/2019 Shipping Lead Person Report Medical Records [address] [place] [address] Chris Gill MD Social History Tobacco Use Types Packs/Day [...] on filedocumented in this encounter Care Teams Hyperbaric Nurse Relationship Specialty Start Date End Date Janessa Langley MD PCP - General Internal Medicine 12/02/15 11/03/19 Mark Caraballo MD PCP - General Family Practice 11/04/19 04/13/20 Janessa Langley MD PCP - General Internal Medicine 04/14/20 08/08/20 Layla Segal MD [address] [place] [address] PCP - General Internal Medicine 08/09/20 10/19/20 Amparo Pressley MD [address] [place] [address] PCP - General Internal Medicine 10/20/20 12/12/20 Layla Segal MD [address] [place] [address] PCP - General Internal Medicine 12/13/20 01/07/22 [facility], Pcp [address] [address] PCP - General Internal Medicine 01/08/22 Isela Roe MD 300 [facility] [address] [place] [address] Specialist Cardiology 10/28/20 documented as of this encounter
--- OUTSIDE RECORDS SUMMARY | 2024-06-01 16:51 | XMS_ITS | Encounter Summary ---
Author Organization [facility] Address [address] [place] [address] Care Team Providers Care Superintendent Horticulture Name Role Phone Amparo Pressley MD Primary Care Provider Un available Mark Alfonso MD Primary Care Provider Unavail able Janessa Langley MD Primary Care Provider Unavaila Mark Valera MD Primary Care Provider Unavail able Janessa Langley MD Primary Care Provider Unavaila Mark Mayo MD Primary Care Provider Unav ailable Janessa Langley MD Primary Care Provider Unavaila Layla Juarez MD Primary Care Provider [phone] Amparo Pressley MD Primary Care Provider Un available Isela Roe MD Unavailable [phone] Layla Segal MD Primary Care Provider [phone] [facility], Pcp Primary Care Provider Unavailabl e Encounter Details Date Type Department Care Team Description 06/14/2011 Hospital Medical Records [address] [place] [address] Shekhar Gauthier MD [address] [place], [place] [id number] Social History Tobacco Use Types Packs/Day Years [...] filedocumented in this encounter Care Teams Superintendent Horticulture Relationship Specialty Start Date End Date Amparo [...] Medicine 04/14/20 08/08/20 Layla Segal MD [address] [place] [address] PCP - General Internal Medicine 08/09/20 10/19/20 Amparo Pressley MD PCP - General Internal Medicine 10/20/20 Layla Segal MD [address] [place] [address] PCP - General Internal Medicine 12/13/20 01/07/22 [facility], [facility] [address] [address] PCP - General Internal Medicine 01/08/22 Isela Roe MD [address] [address] Specialist Cardiology 10/28/20 documented as of this encounter
--- OUTSIDE RECORDS SUMMARY | 2024-06-01 16:51 | XMS_ITS | Encounter Summary ---
[facility] Address [address] [place] [address] Care Team Providers Care Tile Applicator Name Role Phone Janessa Langley MD Primary Care Provider Mark Thomas MD Primary Care Provider Unav ailable Janessa Langley MD Primary Care Provider Unavaila Layla Juarez MD Primary Care Provider [phone] Amparo Pressley MD Primary Care Provider Un available Isela Roe MD Unavailable [phone] Layla Segal MD Primary Care Provider [phone] [facility] Primary Care Provider Unavailabl e Encounter Details Date Type Department Care Team Description 01/15/2018 Release of Information Medical Records [address] [place] [address] Abstract, Provider Social History Tobacco Use Types [...] on filedocumented in this encounter Care Teams Tile Applicator Relationship Specialty Start Date End Date Janessa Langley MD PCP - General Internal Medicine 12/02/15 11/03/19 Makr Caraballo MD PCP - General Family Practice 11/04/19 04/13/20 Janessa Langley MD PCP - General Internal Medicine 04/14/20 08/08/20 Layla Segal MD [address] [place] [address] PCP - General Internal Medicine 08/09/20 10/19/20 Amparo Pressley MD [address] [place] [address] PCP - General Internal Medicine 10/20/20 12/12/20 Layla Segal MD [address] [place] [address] PCP - General Internal Medicine 12/13/20 01/07/22 [facility], Pcp 300 [facility] [address] [place] [address] PCP - General Internal Medicine 01/08/22 Isela Roe MD 300 [facility] [address] [place] [address] Specialist Cardiology 10/28/20 documented as of this encounter
--- OUTSIDE RECORDS SUMMARY | 2024-06-01 16:51 | XMS_ITS | Encounter Summary ---
Author Organization [facility] Address [address] [place] [address] Care Team Providers Care Clinical Data Specialist Name Role Phone Layla Segal MD Primary Care Provider [phone] Amparo Pressley MD Primary Care Provider Un available Isela Roe MD Unavailable [phone] Layla Segal MD Primary Care Provider [phone] [facility], Pcp Primary Care Provider Unavailabl e Encounter Details Date Type Department Care Team Description 08/30/2020 Telephone Cardio PVCA Diag Testing 101 300 [facility] [place] [facility] [address] [place] [address] Amparo Pressley MD Social History Tobacco Use Types Packs/Day Years Used Date Smoking Tobacco: Former Cigarettes 0.3 26 0 04/01/1989 - 05/02/2015 Smokeless Tobacco: Never Alcohol Use Standard Drinks/Week Comments No 0 (1 standard drink = 0.6 oz pur e alcohol) Sex Assigned at Date Recorded Not on file documented as of this encounter Miscellaneous Notes * Telephone Encounter - Amparo Pressley MD - 09/01/2020 9:32 AM EDT OK, now I've reordered it in the addendum. Hope that works! * Telephone Encounter - Wendy Celestin - 09/01/2020 7:32 AM EDT Unfortunately the diagnosis from a note will not automatically generate into an order. The order would need to be updated with the new dx, or a new order placed reflecting the changes. Thank you * Telephone Encounter - Amparo Pressley MD - 08/31/2020 1:10 PM EDT Ok, I addended my note with other diagnoses. Hopefully the order updates with the new diagnoses, and one of them is acceptable! Thanks. * Telephone Encounter - Wendy Celestin - 08/30/2020 8:05 AM EDT You have sent this patient for a Arterial w/PATRICIA, however the diagnosis associated with this order is not a medically necessary diagnosis for the test ordered. Please review your office note to see if there is another diagnosis including signs/symptoms that can be associated with this test and update the order. If there is not another medically necessary diagnosis, sign or symptom (and you wish to proceed with this order), your patient will be informed that they may be billed for this test and will need to sign a waiver, depending on the findings from the exam. The test has been scheduled for: 09/20/20 @ 10:30am. Please respond to this message when the order has been updated or if you wish us to inform the patient they may be responsible for payment & get a signed waiver. documented in this encounter Plan of Treatment Not on file documented as of this encounter Visit Diagnoses Not on filedocumented in this encounter Care Teams Clinical Data Specialist Relationship Specialty Start Date End Date Layla Segal MD [address] [place] [address] PCP - General Internal Medicine 08/09/20 10/19/20 Amparo Pressley MD [address] [place] [address] PCP - General Internal Medicine 10/20/20 12/12/20 Layla Segal MD [address] [place] [address] PCP - General Internal Medicine 12/13/20 01/07/22 [facility], Pcp 300 [facility] [address] [place] [address] PCP - General Internal Medicine 01/08/22 Isela Roe MD 300 [facility] [address] [place] [address] Specialist Cardiology 10/28/20 documented as of this encounter
--- OUTSIDE RECORDS SUMMARY | 2024-06-01 16:51 | XMS_ITS | Encounter Summary ---
Author Organization [facility] Address [address] [place] [address] Care Team Providers Care Fraud Examiner Name Role Phone Amparo Pressley MD Primary Care Provider Un available Mark Alfonso MD Primary Care Provider Unavail able Janessa Langley MD Primary Care Provider Unavaila Mark Valera MD Primary Care Provider Unavail able Janessa Langley MD Primary Care Provider Unavaila Mark Mayo MD Primary Care Provider Unav ailable Janessa Langley MD Primary Care Provider Unavaila Layla Juarez MD Primary Care Provider [phone] Amparo Pressley MD Primary Care Provider Un available Isela Roe MD Unavailable [phone] Layla Segal MD Primary Care Provider [phone] [facility], Pcp Primary Care Provider Unavailabl e Encounter Details Date Type Department Care Team Description 06/24/2009 [facility] Medical Records [address] [place] [address] Chandra Garzon MD Social History Tobacco Use [...] on filedocumented in this encounter Care Teams Fraud Examiner Relationship Specialty Start Date End Date Amparo [...] Medicine 04/14/20 08/08/20 Layla Segal MD [address] [place] [address] PCP - General Internal Medicine 08/09/20 10/19/20 Amparo Pressley MD PCP - General Internal Medicine 10/20/20 Layla Segal MD [address] [place] [address] PCP - General Internal Medicine 12/13/20 01/07/22 [facility], Pcp [address] [address] PCP - General Internal Medicine 01/08/22 Isela Roe MD [address] [address] Specialist Cardiology 10/28/20 documented as of this encounter
--- OUTSIDE RECORDS SUMMARY | 2024-06-01 16:51 | XMS_ITS | Encounter Summary ---
Author Organization [facility] Address [address] [place] [address] Care Team Providers Care All Around Presser Name Role Phone Janessa Langley MD Primary Care Provider Mark Thomas MD Primary Care Provider Unav ailable Janessa Langley MD Primary Care Provider Unavaila Layla Juarez MD Primary Care Provider [phone] Amparo Pressley MD Primary Care Provider Un available Isela Roe MD Unavailable [phone] Layla Segal MD Primary Care Provider [phone] [facility] Primary Care Provider Unavailabl e Encounter Details Date Type Department Care Team Description 08/31/2016 Transfer Records Medical Records [address] [place] [address] Abstract, Provider Social History Tobacco Use Types [...] on filedocumented in this encounter Care Teams All Around Presser Relationship Specialty Start Date End Date Janessa Langley MD PCP - General Internal Medicine 12/02/15 11/03/19 Mark Caraballo MD PCP - General Family Practice 11/04/19 04/13/20 Janessa Langley MD PCP - General Internal Medicine 04/14/20 08/08/20 Layla Segal MD [address] [place] [address] PCP - General Internal Medicine 08/09/20 10/19/20 Amparo Pressley MD [address] [place] [address] PCP - General Internal Medicine 10/20/20 12/12/20 Layla Segal MD [address] [place] [address] PCP - General Internal Medicine 12/13/20 01/07/22 [facility], Pcp 300 [facility] [address] [place] [address] PCP - General Internal Medicine 01/08/22 Isela Roe MD 300 [facility] [address] [place] [address] Specialist Cardiology 10/28/20 documented as of this encounter
--- OUTSIDE RECORDS SUMMARY | 2024-06-01 16:51 | XMS_ITS | Encounter Summary ---
Author Organization [facility] Address [address] [place] [address] Care Team Providers Care Supervisor Scrap Preparation Name Role Phone Janessa Langley MD Primary Care Provider Mark Thomas MD Primary Care Provider Unav ailable Janessa Langley MD Primary Care Provider Unavaila Layla Juarez MD Primary Care Provider [phone] Amparo Pressley MD Primary Care Provider Un available Isela Roe MD Unavailable [phone] Layla Segal MD Primary Care Provider [phone] On License Of [facility] Primary Care Provider Unavailabl e Encounter Details Date Type Department Care Team Description 03/26/2016 Pt. Non Urgent Medical Question Medicine/Pediatrics - [address] [address] Janessa Langley MD Social History Tobacco Use Types Packs/Day Years Used Date Smoking Tobacco: Former Cigarettes 0.3 Q uit: 05/02/2015 Smokeless Tobacco: Never Alcohol Use Standard Drinks/Week Comments No 0 (1 standard drink = 0.6 oz pur e alcohol) Sex Assigned at Date Recorded Not on file documented as of this encounter Progress Notes * Alicia Winchester RN - 03/27/2016 9:00 AM ESTFrom: Kristen Bui To: Janessa Tian MD Sent: 03/26/2016 2:14 PM EST Subject: results of MRI and tests @[facility] I was wondering if you have recieved any results of the MRI, I done last week in [place]? I sugn a release @weight management prigram @[facility] for you to get all and any results from tests,bloodwrk,and any type of infirmation. [facility] Can you please see if you can get the results and I would like to have an appointment to talk about them. Thank You Kristen Bui documented in this encounter Plan of Treatment Not on file documented as of this encounter Visit Diagnoses Not on filedocumented in this encounter Care Teams Supervisor Scrap Preparation Relationship Specialty Start Date End Date Janessa Langley MD PCP - General Internal Medicine 12/02/15 11/03/19 Mark Caraballo MD PCP - General Family Practice 11/04/19 04/13/20 Janessa Langley MD PCP - General Internal Medicine 04/14/20 08/08/20 Layla Segal MD [address] [place] [address] PCP - General Internal Medicine 08/09/20 10/19/20 Amparo Pressley MD [address] [place] [address] PCP - General Internal Medicine 10/20/20 12/12/20 Layla Segal MD [address] [place] [address] PCP - General Internal Medicine 12/13/20 01/07/22 On License Of [facility], Pcp [address] [address] PCP - General Internal Medicine 01/08/22 Isela Roe MD [address] [address] Specialist Cardiology 10/28/20 documented as of this encounter
--- OUTSIDE RECORDS SUMMARY | 2024-06-01 16:51 | XMS_ITS | Encounter Summary ---
Author Organization [facility] Address [address] [place] [address] Care Team Providers Care Senior Javascript Engineer Name Role Phone Layla Segal MD Primary Care Provider [phone] Amparo Pressley MD Primary Care Provider Un available Isela Roe MD Unavailable [phone] Layla Segal MD Primary Care Provider [facility] Primary Care Provider Unavailabl e Encounter Details Date Type Department Care Team Description 09/27/2020 V Groove Cutter Report Medical Records [address] [place] [address] [facility] Social History Tobacco Use Types Packs/Day Years [...] filedocumented in this encounter Care Teams Senior Javascript Engineer Relationship Specialty Start Date End Date Layla Segal MD [address] [place], [place] [phone] PCP - General Internal Medicine 08/09/20 10/19/20 Amparo Pressley MD [address] [place], [place] [address] PCP - General Internal Medicine 10/20/20 12/12/20 Layla Segal MD [address] [place] [address] PCP - General Internal Medicine 12/13/20 01/07/22 [facility], Pcp 300 [facility] [address] [place] [address] PCP - General Internal Medicine 01/08/22 Isela Roe MD 300 [facility] [address] [place] [address] Specialist Cardiology 10/28/20 documented as of this encounter
--- OUTSIDE RECORDS SUMMARY | 2024-06-01 16:51 | XMS_ITS | Encounter Summary ---
Author Organization [facility] Address [address] [place] [address] Care Team Providers Care Research Librarian Name Role Phone Amparo Pressley MD Primary Care Provider Un available Mark Alfonso MD Primary Care Provider Unavail able Janessa Langley MD Primary Care Provider Unavaila Mark Valera MD Primary Care Provider Unavail able Janessa Langley MD Primary Care Provider Unavaila Mark Mayo MD Primary Care Provider Unav ailable Janessa Langley MD Primary Care Provider Unavaila Layla Juarez MD Primary Care Provider [phone] Amparo Pressley MD Primary Care Provider Un available Isela Roe MD Unavailable [phone] Layla Segal MD Primary Care Provider [phone] [facility], Pcp Primary Care Provider Unavailabl e Encounter Details Date Type Department Care Team Description 12/17/2011 Energy And Conservation Technician Report Medical Records [address] [place] [address] Randolph Whitlock MD Social History Tobacco Use [...] on filedocumented in this encounter Care Teams Research Librarian Relationship Specialty Start Date End Date Amparo [...] - General Internal Medicine 04/14/20 08/08/20 Layla eSgal MD [address] [place] [address] PCP - General Internal Medicine 08/09/20 10/19/20 Amparo Pressley MD PCP - General Internal Medicine 10/20/20 Layla Segal MD [address] [place] [address] PCP - General Internal Medicine 12/13/20 01/07/22 [facility], Pcp [address] [address] PCP - General Internal Medicine 01/08/22 Isela Roe MD [address] [address] Specialist Cardiology 10/28/20 documented as of this encounter
--- OUTSIDE RECORDS SUMMARY | 2024-06-01 16:51 | XMS_ITS | Encounter Summary ---
Author Organization [facility] Address [address] [place] [address] Care Team Providers Care Conveyor Worker Name Role Phone Amparo Pressley MD Primary Care Provider Un available Mark Alfonso MD Primary Care Provider Unavail able Janessa Langley MD Primary Care Provider Unavaila Mark Valera MD Primary Care Provider Unavail able Janessa Langley MD Primary Care Provider Unavaila Mark Mayo MD Primary Care Provider Unav ailable Janessa Langley MD Primary Care Provider Unavaila Layla Juarez MD Primary Care Provider [phone] Amparo Pressley MD Primary Care Provider Un available Isela Roe MD Unavailable [phone] Layla Segal MD Primary Care Provider [phone] [facility] Pcp Primary Care Provider Unavailabl e Encounter Details Date Type Department Care Team Description 09/08/2009 Hospital Medical Records [address] [place] [address] Александр Caldera NP Social History Tobacco Use Types Packs/Day [...] on filedocumented in this encounter Care Teams Conveyor Worker Relationship Specialty Start Date End Date [...] Internal Medicine 04/14/20 08/08/20 Layla Segal MD [address] [place] [address] PCP - General Internal Medicine 08/09/20 10/19/20 Amparo Pressley MD PCP - General Internal Medicine 10/20/20 Layla Segal MD [address] [place] [address] PCP - General Internal Medicine 12/13/20 01/07/22 [facility]cp [address] [address] PCP - General Internal Medicine 01/08/22 Isela Roe MD [address] [address] Specialist Cardiology 10/28/20 documented as of this encounter
--- OUTSIDE RECORDS SUMMARY | 2024-06-01 16:51 | XMS_ITS | Encounter Summary ---
Author [facility] Address [address] [place] [address] Care Team Providers Care Survey Compiler Name Role Phone Janessa Langley MD Primary Care Provider UnavailMark Guadarrama MD Primary Care Provider Unav ailable Janessa Langley MD Primary Care Provider Unavaila Layla Juarez MD Primary Care Provider [phone] Amparo Pressley MD Primary Care Provider Un available Isela Roe MD Unavailable [phone] Layla Segal MD Primary Care Provider [phone] [facility] Primary Care Provider Unavailabl e Encounter Details Date Type Department Care Team Description 01/06/2018 Orders Only Medicine/Pediatrics - [address] [address] Janessa Langley MD History of thyroid cancer [...] thyroid documented in this encounter Care Teams Survey Compiler Relationship Specialty Start Date End Date Janessa Langley MD PCP - General Internal Medicine 12/02/15 11/03/19 Mark Caraballo MD PCP - General Family Practice 11/04/19 04/13/20 Janessa Langley MD PCP - General Internal Medicine 04/14/20 08/08/20 Layla Segal MD [address] [place] [address] PCP - General Internal Medicine 08/09/20 10/19/20 Amparo Pressley MD [address] [place] [address] PCP - General Internal Medicine 10/20/20 12/12/20 Layla Segal MD [address] [place] [address] PCP - General Internal Medicine 12/13/20 01/07/22 [facility], Pcp [address] [address] PCP - General Internal Medicine 01/08/22 Isela Roe MD [address] [address] Specialist Cardiology 10/28/20 documented as of this encounter
--- OUTSIDE RECORDS SUMMARY | 2024-06-01 16:51 | XMS_ITS | Encounter Summary ---
Author [facility] Address [address] [place] [address] Care Team Providers Care Manager Strategic Sourcing Name Role Phone Isela Roe MD Unavailable [phone] [facility], Pcp Primary Care Provider Unavailabl e Encounter Details Date Type Department Care Team Description 05/31/2022 Physical Science Aide Report Medical Records [address] [place] [address] Social History Tobacco Use Types Packs/Day Years [...] filedocumented in this encounter Care Teams Manager Strategic Sourcing Relationship Specialty Start Date End Date Community, Pcp 300 [facility] [address] [place] [address] PCP - General Internal Medicine 01/08/22 Isela Roe MD 300 [facility] [address] [place] [address] Specialist Cardiology 10/28/20 documented as of this encounter
--- OUTSIDE RECORDS SUMMARY | 2024-06-01 16:51 | XMS_ITS | Encounter Summary ---
Author [facility] Address [address] [place] [address] Care Team Providers Care Piccolo Mechanic Name Role Phone Layla Segal MD Primary Care Provider Amparo Pressley MD Primary Care Provider Un available Isela Roe MD Unavailable [phone] Layla Segal MD Primary Care Provider [phone] [facility] Primary Care Provider Unavailabl e Encounter Details Date Type Department Care Team Description 10/19/2020 SCAN Medical Records [address] [place] [address] Layla Segal MD [address] [place] [phone] Social History Tobacco Use Types Packs/Day Years [...] or suspected to have Coronavirus / COVID-19? No / Unsure 10/19/2020 2:08 PM EDT documented as of this encounter Plan of Treatment Not on file documented as of this encounter Procedures Procedure Name Priority Date/Time Associated Diagnosis Comments OUTSIDE LAB Routine 10/19/2020 documented in this encounter Results * OUTSIDE LAB (10/19/2020) Provider Abstract LAB documented in this encounter Visit Diagnoses Not on filedocumented in this encounter Care Teams Piccolo Mechanic Relationship Specialty Start Date End Date Layla Segal MD [address] [place] [address] PCP - General Internal Medicine 08/09/20 10/19/20 Amparo Pressley MD [address] [place] [address] PCP - General Internal Medicine 10/20/20 12/12/20 Layla Segal MD [address] [place] [address] PCP - General Internal Medicine 12/13/20 01/07/22 [facility], Pcp [address] [address] PCP - General Internal Medicine 01/08/22 Isela Roe MD 300 [facility] [address] [place] [address] Specialist Cardiology 10/28/20 documented as of this encounter
--- OUTSIDE RECORDS SUMMARY | 2024-06-01 16:51 | XMS_ITS | Encounter Summary ---
Author Organization [facility] Address [address] [place] [address] Care Team Providers Care Boot And Saddle Repair Person Name Role Phone Janessa Langley MD Primary Care Provider UnavailMark Guadarrama MD Primary Care Provider Unav ailable Janessa Langley MD Primary Care Provider Unavaila Layla Juarez MD Primary Care Provider [phone] Amparo Pressley MD Primary Care Provider Un available Isela Roe MD Unavailable [phone] Layla Segal MD Primary Care Provider [phone] [facility], [facility] Primary Care Provider Unavailabl e Reason for Referral * Radiology Services (Routine) - Closed Specialty Diagnoses / Procedures Referred By Contac t Referred To Contact Radiology Diagnoses Chronic low back pain with bilateral sciatica, unspecified back pain laterality Procedures MRI OF LUMBAR SPINE NO CONTRAST Janessa Langley MD [address] [place] [address] Mri/[address] [address] Referral ID Status Reason Start Date Expiration Date Visits Re quested Visits Authorized [id number] Closed 03/21/2016 05/20/2016 1 1 Reason for Visit * Reason Onset Date Comments Orders Call 03/21/2016 Encounter Details Date Type Department Care Team Description 03/21/2016 Telephone Medicine/Pediatrics - [address] [phone] Janessa Langley MD Orders Call Social History [...] back pain-Has followed with Dr Doll in [place]. Reports increased low back pain. Requests referral. [...] no other significant interval changes. Procedure Note Kyrie Vance MD - 03/23/2016 History: Low back [...] laterality documented in this encounter Care Teams Boot And Saddle Repair Person Relationship Specialty Start Date End Date Janessa Langley MD PCP - General Internal Medicine 12/02/15 11/03/19 Mark Caraballo MD PCP - General Family Practice 11/04/19 04/13/20 Janessa Langley MD PCP - General Internal Medicine 04/14/20 08/08/20 Layla Segal MD [address] [place] [address] PCP - General Internal Medicine 08/09/20 10/19/20 Amparo Pressley MD [address] [place] [address] PCP - General Internal Medicine 10/20/20 12/12/20 Layla Segal MD [address] [place] [address] PCP - General Internal Medicine 12/13/20 01/07/22 [facility], Pcp [address] [address] PCP - General Internal Medicine 01/08/22 Isela Roe MD [address] [address] Specialist Cardiology 10/28/20 documented as of this encounter
--- OUTSIDE RECORDS SUMMARY | 2024-06-01 16:51 | XMS_ITS | Encounter Summary ---
Author Organization [facility] Address [address] [place] [address] Care Team Providers Care Heat Treater Helper Name Role Phone Amparo Pressley MD Primary Care Provider Un available Mark Alfonso MD Primary Care Provider Unavail able Janessa Langley MD Primary Care Provider Unavaila Mark Valera MD Primary Care Provider Unavail able Janessa Langley MD Primary Care Provider Unavaila Mark Mayo MD Primary Care Provider Unav ailable Janessa Langley MD Primary Care Provider Unavaila Layla Juarez MD Primary Care Provider [phone] Amparo Pressley MD Primary Care Provider Un available Isela Roe MD Unavailable [phone] Layla Segal MD Primary Care Provider [phone] [facility], Pcp Primary Care Provider Unavailabl e Encounter Details Date Type Department Care Team Description 04/04/2011 Hospital Medical Records [address] [place] [address] Shekhar Gauthier MD [address] [place] [address] [id number] Social History Tobacco Use Types Packs/Day Years [...] on filedocumented in this encounter Care Teams Heat Treater Helper Relationship Specialty Start Date End Date Amparo [...] Medicine 04/14/20 08/08/20 Layla Segal MD [address] [place] [address] PCP - General Internal Medicine 08/09/20 10/19/20 Amparo Pressley MD PCP - General Internal Medicine 10/20/20 Layla Segal MD [address] [place] [address] PCP - General Internal Medicine 12/13/20 01/07/22 [facility], [facility] [address] [address] PCP - General Internal Medicine 01/08/22 Isela Roe MD [address] [address] Specialist Cardiology 10/28/20 documented as of this encounter
--- OUTSIDE RECORDS SUMMARY | 2024-06-01 16:51 | XMS_ITS | Encounter Summary ---
Author Organization [facility] Address [address] [place] [address] Care Team Providers Care Director Of Graduate Admissions Name Role Phone Isela Roe MD Unavailable [facility]ly [facility], Pcp Primary Care Provider Unavailabl e Reason for Visit * Reason Comments E-prescribe Rx Request Encounter Details Date Type Department Care Team Description 01/13/2024 Refill Adult Medicine [address] [address] Morales Richards MD [address] [place] [id number] E-prescribe Rx Request Social History Tobacco [...] on filedocumented in this encounter Care Teams Director Of Graduate Admissions Relationship Specialty Start Date End Date Community, Pcp [address] [place] [address] PCP - General Internal Medicine 01/08/22 Isela Roe MD 300 [facility] [address] [place] [address] Specialist Cardiology 10/28/20 documented as of this encounter
--- OUTSIDE RECORDS SUMMARY | 2024-06-01 16:51 | XMS_ITS | Encounter Summary ---
Author Organization [facility] Address [address] [place] [address] Care Team Providers Care Wax Pattern Coater Name Role Phone Amparo Pressley MD Primary Care Provider Un available Mark Alfonso MD Primary Care Provider Unavail able Janessa Langley MD Primary Care Provider Unavaila Mark Valera MD Primary Care Provider Unavail able Janessa Langley MD Primary Care Provider Unavaila Mark Mayo MD Primary Care Provider Unav ailable Janessa Langley MD Primary Care Provider Unavaila Layla Juarez MD Primary Care Provider [phone] Amparo Pressley MD Primary Care Provider Un available Isela Roe MD Unavailable [phone] Layla Segal MD Primary Care Provider [phone] [facility], Pcp Primary Care Provider Unavailabl e Encounter Details Date Type Department Care Team Description 11/05/2011 Chemistry Teacher Report Medical Records [address] [place] [address] Maritza Lemus Social History Tobacco Use Types [...] on filedocumented in this encounter Care Teams Wax Pattern Coater Relationship Specialty Start Date End Date Amparo [...] Medicine 04/14/20 08/08/20 Layla Segal MD [address] [place] [address] PCP - General Internal Medicine 08/09/20 10/19/20 Amparo Pressley MD PCP - General Internal Medicine 10/20/20 Layla Segal MD [address] [place] [address] PCP - General Internal Medicine 12/13/20 01/07/22 [facility], Pcp [address] [address] PCP - General Internal Medicine 01/08/22 Isela Roe MD [address] [address] Specialist Cardiology 10/28/20 documented as of this encounter
--- OUTSIDE RECORDS SUMMARY | 2024-06-01 16:51 | XMS_ITS | Encounter Summary ---
Author Organization [facility] Address [address] [place] [address] Care Team Providers Care Bottom Loader Name Role Phone Layla Segal MD Primary Care Provider Amparo Pressley MD Primary Care Provider Un available Isela Roe MD Unavailable [phone] Layla Segal MD Primary Care Provider [facility] Pcp Primary Care Provider Unavailabl e Encounter Details Date Type Department Care Team Description 10/05/2020 [facility] Medical Records [address] [place] [address] Abstract, Provider Social History Tobacco Use Types [...] on filedocumented in this encounter Care Teams Bottom Loader Relationship Specialty Start Date End Date Layla Segal MD [address] [place] [address] PCP - General Internal Medicine 08/09/20 10/19/20 Amparo Pressley MD [address] [place] [address] PCP - General Internal Medicine 10/20/20 12/12/20 Layla Segal MD [address] [place] [address] PCP - General Internal Medicine 12/13/20 01/07/22 [facility], Pcp 300 [facility] [address] [place] [address] PCP - General Internal Medicine 01/08/22 Isela Roe MD 300 [facility] [address] [place] [address] Specialist Cardiology 10/28/20 documented as of this encounter
--- OUTSIDE RECORDS SUMMARY | 2024-06-01 16:51 | XMS_ITS | Encounter Summary ---
Author Organization [facility] Address [address] [place] [address] Care Team Providers Care Therapist Respiratory Name Role Phone Janessa Langley MD Primary Care Provider Mark Thomas MD Primary Care Provider Unav ailable Janessa Langley MD Primary Care Provider Unavaila Layla Juarez MD Primary Care Provider [phone] Amparo Pressley MD Primary Care Provider Un available Isela Roe MD Unavailable [phone] Layla Segal MD Primary Care Provider [phone] [facility] Primary Care Provider Unavailabl e Encounter Details Date Type Department Care Team Description 08/13/2016 Walk In Clinic Visit Medical Records [address] [place] [address] Abstract, Provider Social History Tobacco Use Types [...] on filedocumented in this encounter Care Teams Therapist Respiratory Relationship Specialty Start Date End Date Janessa Langley MD PCP - General Internal Medicine 12/02/15 11/03/19 Mark Caraballo MD PCP - General Family Practice 11/04/19 04/13/20 Janessa Langley MD PCP - General Internal Medicine 04/14/20 08/08/20 Layla Segal MD [address] [place] [address] PCP - General Internal Medicine 08/09/20 10/19/20 Amparo Pressley MD [address] [place] [address] PCP - General Internal Medicine 10/20/20 12/12/20 Layla Segal MD [address] [place] [address] PCP - General Internal Medicine 12/13/20 01/07/22 [facility], Pcp [address] [address] PCP - General Internal Medicine 01/08/22 Isela Roe MD 300 [facility] [address] [place] [address] Specialist Cardiology 10/28/20 documented as of this encounter
--- OUTSIDE RECORDS SUMMARY | 2024-06-01 16:51 | XMS_ITS | Encounter Summary ---
Author Organization [facility] Address [address] [place] [address] Care Team Providers Care Technical Support Representative Name Role Phone Mark Alfonso MD Primary Care Provider Unavail able Janessa Langley MD Primary Care Provider Unavaila Mark Valera MD Primary Care Provider Unavail able Janessa Langley MD Primary Care Provider Unavaila Mark Mayo MD Primary Care Provider Unav ailable Janessa Langley MD Primary Care Provider Unavaila Layla Juarez MD Primary Care Provider [phone] Amparo Pressley MD Primary Care Provider Un available Isela Roe MD Unavailable [phone] Layla Segal MD Primary Care Provider [phone] [facility], Pcp Primary Care Provider Unavailabl e Encounter Details Date Type Department Care Team Description 03/10/2014 Sleeve Ironer Report Medical Records [address] [place] [address] Maritza Lemus Social History Tobacco Use Types [...] filedocumented in this encounter Care Teams Technical Support Representative Relationship Specialty Start Date End Date Mark [...] Medicine 04/14/20 08/08/20 Layla Segal MD [address] [place] [address] PCP - General Internal Medicine 08/09/20 10/19/20 Amparo Pressley MD [address] [place] [address] PCP - General Internal Medicine 10/20/20 12/12/20 Layla Segal MD [address] [place] [address] PCP - General Internal Medicine 12/13/20 01/07/22 [facility], Pcp [address] [address] PCP - General Internal Medicine 01/08/22 Isela Roe MD [address] [address] Specialist Cardiology 10/28/20 documented as of this encounter
--- OUTSIDE RECORDS SUMMARY | 2024-06-01 16:51 | XMS_ITS | Encounter Summary ---
Author Organization [facility] Address [address] [place] [address] Care Team Providers Care Bundle Tier And Labeler Name Role Phone Mark Alfonso MD Primary Care Provider Unavail able Janessa Langley MD Primary Care Provider Unavaila Mark Valera MD Primary Care Provider Unavail able Janessa Langley MD Primary Care Provider Unavaila Mark Mayo MD Primary Care Provider Unav ailable Janessa Langley MD Primary Care Provider Unavaila Layla Juarez MD Primary Care Provider [phone] Amparo Pressley MD Primary Care Provider Un available Isela Roe MD Unavailable [phone] Layla Segal MD Primary Care Provider [phone] [facility], Pcp Primary Care Provider Unavailabl e Encounter Details Date Type Department Care Team Description 02/09/2015 MILL ROLL REWINDER/[facility] Report Medical Records [address] [place] [address] Abstract, Provider Social History Tobacco Use Types [...] on filedocumented in this encounter Care Teams Bundle Tier And Labeler Relationship Specialty Start Date End Date Mark [...] Medicine 04/14/20 08/08/20 Layla Segal MD [address] [place] [address] PCP - General Internal Medicine 08/09/20 10/19/20 Amparo Pressley MD [address] [place] [address] PCP - General Internal Medicine 10/20/20 12/12/20 Layla Segal MD [address] [place] [address] PCP - General Internal Medicine 12/13/20 01/07/22 [facility], Pcp [address] [address] PCP - General Internal Medicine 01/08/22 Isela Roe MD [address] [address] Specialist Cardiology 10/28/20 documented as of this encounter
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
--- OUTSIDE RECORDS SUMMARY | 2024-06-01 16:51 | XMS_ITS | Encounter Summary ---
Author Organization [facility] Address [address] [place] [address] Care Team Providers Care Community Service Representative Name Role Phone Mark Alfonso MD Primary Care Provider Unavail able Janessa Langley MD Primary Care Provider Unavaila Mark Valera MD Primary Care Provider Unavail able Janessa Langley MD Primary Care Provider Unavaila Mark Mayo MD Primary Care Provider Unav ailable Janessa Langley MD Primary Care Provider Unavaila Layla Juarez MD Primary Care Provider [phone] Amparo Pressley MD Primary Care Provider Un available Isela Roe MD Unavailable [phone] Layla Segal MD Primary Care Provider [phone] [facility], Pcp Primary Care Provider Unavailabl e Encounter Details Date Type Department Care Team Description 05/06/2015 Walk In Clinic Visit Medical Records [address] [place] [address] Abstract, Provider Social History Tobacco Use Types [...] on filedocumented in this encounter Care Teams Community Service Representative Relationship Specialty Start Date End [...] Medicine 04/14/20 08/08/20 Layla Segal MD [address] [place] [address] PCP - General Internal Medicine 08/09/20 10/19/20 Amparo Pressley MD [address] [place] [address] PCP - General Internal Medicine 10/20/20 12/12/20 Layla Segal MD [address] [place] [address] PCP - General Internal Medicine 12/13/20 01/07/22 [facility], Pcp [address] [address] PCP - General Internal Medicine 01/08/22 Isela Roe MD [address] [address] Specialist Cardiology 10/28/20 documented as of this encounter
--- OUTSIDE RECORDS SUMMARY | 2024-06-01 16:51 | XMS_ITS | Encounter Summary ---
Author Organization [facility] Address [address] [place] [address] Care Team Providers Care Quality Technician Name Role Phone Mark Alfonso MD Primary Care Provider Unavail able Janessa Langley MD Primary Care Provider Unavaila Mark Valera MD Primary Care Provider Unavail able Janessa Langley MD Primary Care Provider Unavaila Mark Mayo MD Primary Care Provider Unav ailable Janessa Langley MD Primary Care Provider Unavaila Layla Juarez MD Primary Care Provider [phone] Amparo Pressley MD Primary Care Provider Un available Isela Roe MD Unavailable [phone] Layla Segal MD Primary Care Provider [phone] [facility], Pcp Primary Care Provider Unavailabl e Encounter Details Date Type Department Care Team Description 05/28/2014 Television Engineer Report Medical Records [address] [place] [address] Chris Gerber MD Social History Tobacco Use [...] on filedocumented in this encounter Care Teams Quality Technician Relationship Specialty Start Date End Date [...] Medicine 04/14/20 08/08/20 Layla Segal MD [address] [place] [address] PCP - General Internal Medicine 08/09/20 10/19/20 Amparo Pressley MD [address] [place] [address] PCP - General Internal Medicine 10/20/20 12/12/20 Layla Segal MD [address] [place] [address] PCP - General Internal Medicine 12/13/20 01/07/22 [facility], Pcp [address] [address] PCP - General Internal Medicine 01/08/22 Isela Roe MD [address] [address] Specialist Cardiology 10/28/20 documented as of this encounter
--- OUTSIDE RECORDS SUMMARY | 2024-06-01 16:51 | XMS_ITS | Encounter Summary ---
Author Organization [facility] Address [address] [place] [address] Care Team Providers Care Nursing Teacher Name Role Phone Amparo Pressley MD Primary Care Provider Un available Mark Alfonso MD Primary Care Provider Unavail able Janessa Langley MD Primary Care Provider Unavaila Mark Valera MD Primary Care Provider Unavail able Janessa Langley MD Primary Care Provider Unavaila Mrak Mayo MD Primary Care Provider Unav ailable Janessa Langley MD Primary Care Provider Unavaila Layla Juarez MD Primary Care Provider [phone] Amparo Pressley MD Primary Care Provider Un available Isela Roe MD Unavailable [phone] Layla Segal MD Primary Care Provider [phone] [facility] Primary Care Provider Unavailabl e Reason for Visit * Reason Onset Date Comments Form 07/11/2011 Encounter Details Date Type Department Care Team Description 07/11/2011 Telephone Medicine/Pediatrics - [address] [id number] Amparo Pressley MD Form Social History Tobacco [...] Michaud - 07/11/2011 4:20 PM EDT Patients [place] [facility] Pt. demographics and [facility] information verified YES Mailing address if different from home address NO Name of treating provider Amparo Pressley Address/zip and phone number for treating provider [address] [place] [phone] For what reason do they see this [...] on filedocumented in this encounter Care Teams Nursing Teacher Relationship Specialty Start Date End Date Amparo [...] Medicine 04/14/20 08/08/20 Layla Segal MD [address] [place] [address] PCP - General Internal Medicine 08/09/20 10/19/20 Amparo Pressley MD PCP - General Internal Medicine 10/20/20 Layla Segal MD [address] [place] [address] PCP - General Internal Medicine 12/13/20 01/07/22 [facility], Pcp [address] [address] PCP - General Internal Medicine 01/08/22 Isela Roe MD 300 [facility] [address] [place] [address] Specialist Cardiology 10/28/20 documented as of this encounter
--- OUTSIDE RECORDS SUMMARY | 2024-06-01 16:51 | XMS_ITS | Encounter Summary ---
Author Organization [facility] Address [address] [place] [address] Care Team Providers Care Durable Medical Equipment Technician Name Role Phone Amparo Pressley MD Primary Care Provider Un available Mark Alfonso MD Primary Care Provider Unavail able Janessa Langley MD Primary Care Provider Unavaila Mark Valera MD Primary Care Provider Unavail able Janessa Langley MD Primary Care Provider Unavaila Mark Mayo MD Primary Care Provider Unav ailable Janessa Langley MD Primary Care Provider Unavaila Layla Juarez MD Primary Care Provider [phone] Amparo Pressley MD Primary Care Provider Un available Isela Roe MD Unavailable [phone] Layla Segal MD Primary Care Provider [phone] [facility], Pcp Primary Care Provider Unavailabl e Encounter Details Date Type Department Care Team Description 09/20/2009 Geology Faculty Member Report Medical Records [address] [place] [address] Janessa Cuenca MD Social History Tobacco Use Types Packs/Day [...] on filedocumented in this encounter Care Teams Durable Medical Equipment Technician Relationship Specialty Start Date End Date Amparo [...] Medicine 04/14/20 08/08/20 Layla Segal MD [address] [place] [address] PCP - General Internal Medicine 08/09/20 10/19/20 Amparo Pressley MD PCP - General Internal Medicine 10/20/20 Layla Segal MD [address] [place] [address] PCP - General Internal Medicine 12/13/20 01/07/22 [facility], Pcp [address] [address] PCP - General Internal Medicine 01/08/22 Isela Roe MD [address] [address] Specialist Cardiology 10/28/20 documented as of this encounter
--- OUTSIDE RECORDS SUMMARY | 2024-06-01 16:51 | XMS_ITS | Encounter Summary ---
Author Organization [facility] Address [address] [place] [address] Care Team Providers Care Overnight Houseperson Name Role Phone Amparo Pressley MD Primary Care Provider Un available Mark Alfonso MD Primary Care Provider Unavail able Janessa Langley MD Primary Care Provider Unavaila Mark Valera MD Primary Care Provider Unavail able Janessa Langley MD Primary Care Provider Unavaila Mark Mayo MD Primary Care Provider Unav ailable Janessa Langley MD Primary Care Provider Unavaila Layla Juarez MD Primary Care Provider [phone] Amparo Pressley MD Primary Care Provider Un available Isela Roe MD Unavailable [phone] Layla Segal MD Primary Care Provider [phone] [facility], Pcp Primary Care Provider Unavailabl e Encounter Details Date Type Department Care Team Description 03/09/2012 Telephone Adult Medicine [address] [address] Amparo Pressley MD Social History Tobacco Use [...] Telephone Encounter - Jairo Hawley L.P.NLilliana - 03/09/2012 8:44 AM EST Spoke with night triage nurse She reports patient is upset is out of Trazodone and hasn't slept in 3 nights They were suppose to call it in on Saturday Explained The RX was denied because she has no showed or cancelled appt Last visit was July 08 Offered her an appt She will call back if she can get a ride documented in this encounter Plan of Treatment Not on file documented as of this encounter Visit Diagnoses Not on filedocumented in this encounter Care Teams Overnight Houseperson Relationship Specialty Start Date End Date Amparo [...] Internal Medicine 04/14/20 08/08/20 Layla Segal MD [address] [place] [address] PCP - General Internal Medicine 08/09/20 10/19/20 Amparo Pressley MD PCP - General Internal Medicine 10/20/20 Layla Segal MD [address] [place] [address] PCP - General Internal Medicine 12/13/20 01/07/22 [facility], Pcp [address] [address] PCP - General Internal Medicine 01/08/22 Isela Roe MD [address] [address] Specialist Cardiology 10/28/20 documented as of this encounter
--- OUTSIDE RECORDS SUMMARY | 2024-06-01 16:51 | XMS_ITS | Encounter Summary ---
Author Organization [facility] Address [address] [place] [address] Care Team Providers Care Deal Architect Name Role Phone Amparo Pressley MD Primary Care Provider Un available Mark Alfonso MD Primary Care Provider Unavail able Janessa Langley MD Primary Care Provider Unavaila Mark Valera MD Primary Care Provider Unavail able Janessa Langley MD Primary Care Provider Unavaila Mark Mayo MD Primary Care Provider Unav ailable Janessa Langley MD Primary Care Provider Unavaila Layla Juarez MD Primary Care Provider [phone] Amparo Pressley MD Primary Care Provider Un available Isela Roe MD Unavailable [phone] Layla Segal MD Primary Care Provider [phone] [facility], Pcp Primary Care Provider Unavailabl e Encounter Details Date Type Department Care Team Description 12/12/2011 Powder Mill Operator Report Medical Records [address] [place], [place] [id number] [place] [address] Social History Tobacco Use Types Packs/Day Years [...] on filedocumented in this encounter Care Teams Deal Architect Relationship Specialty Start Date End Date Amparo Pressley MD PCP - General 01/05/08 06/08/12 Mark Alfonso MD PCP - General Internal Medicine 06/09/12 09/06/15 Janessa Langley MD PCP - General Internal Medicine 09/07/15 09/08/15 Mrak Alfonso MD PCP - General Internal Medicine 09/09/15 12/01/15 Janessa Langley MD PCP - General Internal Medicine 12/02/15 11/03/19 Mark Caraballo MD PCP - General Family Practice 11/04/19 04/13/20 Janessa Langley MD PCP - General Internal Medicine 04/14/20 08/08/20 Layla Segal MD [address] [place] [address] PCP - General Internal Medicine 08/09/20 10/19/20 Amparo Pressley MD PCP - General Internal Medicine 10/20/20 Layla Segal MD [address] [place] [address] PCP - General Internal Medicine 12/13/20 01/07/22 [facility], Pcp [address] [address] PCP - General Internal Medicine 01/08/22 Isela Roe MD 300 [facility] [address] [place] [address] Specialist Cardiology 10/28/20 documented as of this encounter
--- OUTSIDE RECORDS SUMMARY | 2024-06-01 16:51 | XMS_ITS | Encounter Summary ---
Author Organization [facility] Address [address] [place] [address] Care Team Providers Care Cemetery Warden Name Role Phone Janessa Langley MD Primary Care Provider Mark Thomas MD Primary Care Provider Unav ailable Janessa Langley MD Primary Care Provider Unavaila Layla Juarez MD Primary Care Provider [phone] Amparo Pressley MD Primary Care Provider Un available Isela Roe MD Unavailable [phone] Layla Segal MD Primary Care Provider [phone] [facility] Primary Care Provider Unavailabl e Encounter Details Date Type Department Care Team Description 02/17/2018 Leaflet Distributor Report Medical Records [address] [place], [place] [id number] [place], [place] [address]Linda Cortez Social History Tobacco Use Types Packs/Day Years [...] on filedocumented in this encounter Care Teams Cemetery Warden Relationship Specialty Start Date End Date Janessa Langley MD PCP - General Internal Medicine 12/02/15 11/03/19 Mark Caraballo MD PCP - General Family Practice 11/04/19 04/13/20 Janessa Langley MD PCP - General Internal Medicine 04/14/20 08/08/20 Layla Segal MD [address] [place] [address] PCP - General Internal Medicine 08/09/20 10/19/20 Amparo Pressley MD [address] [place] [address] PCP - General Internal Medicine 10/20/20 12/12/20 Layla Segal MD [address] [place] [address] PCP - General Internal Medicine 12/13/20 01/07/22 [facility], Pcp [address] [address] PCP - General Internal Medicine 01/08/22 Isela Roe MD 300 [facility] [address] [place] [address] Specialist Cardiology 10/28/20 documented as of this encounter
--- OUTSIDE RECORDS SUMMARY | 2024-06-01 16:51 | XMS_ITS | Encounter Summary ---
Author Organization [facility] Address [address] [place] [address] Care Team Providers Care Lip And Gate Builder Name Role Phone Janessa Langley MD Primary Care Provider Mark Thomas MD Primary Care Provider Unav ailable Janessa Langley MD Primary Care Provider Unavaila Layla Juarez MD Primary Care Provider [phone] Amparo Pressley MD Primary Care Provider Un available Isela Roe MD Unavailable [phone] Layla Segal MD Primary Care Provider [phone] [facility] Primary Care Provider Unavailabl e Encounter Details Date Type Department Care Team Description 08/02/2016 Manager Unit Report Medical Records [address] [place] [address] Mckinley Wright MD Social History Tobacco Use Types Packs/Day [...] on filedocumented in this encounter Care Teams Lip And Gate Builder Relationship Specialty Start Date End Date Janessa Langley MD PCP - General Internal Medicine 12/02/15 11/03/19 Mark Caraballo MD PCP - General Family Practice 11/04/19 04/13/20 Janessa Langley MD PCP - General Internal Medicine 04/14/20 08/08/20 Layla Segal MD [address] [place] [address] PCP - General Internal Medicine 08/09/20 10/19/20 Amparo Pressley MD [address] [place] [address] PCP - General Internal Medicine 10/20/20 12/12/20 Layla Segal MD [address] [place] [address] PCP - General Internal Medicine 12/13/20 01/07/22 [facility], Pcp [address] [address] PCP - General Internal Medicine 01/08/22 Isela Roe MD 300 [facility] [address] [place] [address] Specialist Cardiology 10/28/20 documented as of this encounter
--- OUTSIDE RECORDS SUMMARY | 2024-06-01 16:51 | XMS_ITS | Encounter Summary ---
Author Organization [facility] Address [address] [place] [address] Care Team Providers Care Record Changer Tester Name Role Phone Janessa Langley MD Primary Care Provider Mark Thomas MD Primary Care Provider Unav ailable Janessa Langley MD Primary Care Provider Unavaila Layla Juarez MD Primary Care Provider [phone] Amparo Pressley MD Primary Care Provider Un available Isela Roe MD Unavailable [phone] Layla Segal MD Primary Care Provider [phone] [facility] Primary Care Provider Unavailabl e Reason for Visit * Reason Onset Date Comments Medication 04/23/2016 Encounter Details Date Type Department Care Team Description 04/23/2016 Telephone Medicine/Pediatrics - [address] [id number] Janessa Langley MD Medication Social History Tobacco [...] on filedocumented in this encounter Care Teams Record Changer Tester Relationship Specialty Start Date End Date Janessa Langley MD PCP - General Internal Medicine 12/02/15 11/03/19 Mark Caraballo MD PCP - General Family Practice 11/04/19 04/13/20 Janessa Langlye MD PCP - General Internal Medicine 04/14/20 08/08/20 Layla Segal MD [address] [place] [address] PCP - General Internal Medicine 08/09/20 10/19/20 Amparo Pressley MD [address] [place] [address] PCP - General Internal Medicine 10/20/20 12/12/20 Layla Segal MD [address] [place] [address] PCP - General Internal Medicine 12/13/20 01/07/22 [facility], Pcp 300 [facility] [address] [place] [address] PCP - General Internal Medicine 01/08/22 Isela Roe MD 300 [facility] [address] [place] [address] Specialist Cardiology 10/28/20 documented as of this encounter
--- OUTSIDE RECORDS SUMMARY | 2024-06-01 16:51 | XMS_ITS | Encounter Summary ---
Author Organization [facility] Address [address] [place] [address] Care Team Providers Care Studio Operations Manager Name Role Phone Janessa Langley MD Primary Care Provider Mark Thomas MD Primary Care Provider Unav ailable Janessa Langley MD Primary Care Provider Unavaila Layla Juarez MD Primary Care Provider [phone] Amparo Pressley MD Primary Care Provider Un available Isela Roe MD Unavailable [phone] Layla Segal MD Primary Care Provider [phone] [facility] Primary Care Provider Unavailabl e Reason for Visit * Reason Onset Date Comments Provider Call Back 08/08/2016 Encounter Details Date Type Department Care Team Description 08/08/2016 Telephone Physiatry - [address] [address] Christopher Wong DO Provider Call Back Social History Tobacco Use Types Packs/Day Years Used Date Smoking Tobacco: Former Cigarettes 0.3 Q uit: 05/02/2015 Smokeless Tobacco: Never Alcohol Use Standard Drinks/Week Comments No 0 (1 standard drink = 0.6 oz pur e alcohol) Sex Assigned at Date Recorded Not on file documented as of this encounter Miscellaneous Notes * Telephone Encounter - Amy Kellogg M.A. - 08/09/2016 8:48 AM EDT FYI-I don't know what MRI the patient is referring to. According to the patient Dr Trujillo didn't order any imaging nor did he have a copy of the report or films at her Dr's appt. I made her a F/U appointment with Dr Wong so she can further explain her discomfort to the provider. * Telephone Encounter - Christopher Wong - 08/08/2016 9:22 PM EDT What MRI are we talking about? She just had lumbar last March, one way or another she hasn't been for over a year. I am not sure what advise is she looking for. * Telephone Encounter - Amy Kellogg M.A. - 08/08/2016 12:40 PM EDT Patient was at Dr Trujillo's office (at [facility], lung specialist) patient states that Dr Trujillo told her she had a damaged nerve in her back. There was no imaging done by that Dr & patient states that Lynn recommended that she have an updated MRI. 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 Patient having trouble walking having a lot ofpain for the last 2 months. Please review and advise * Telephone Encounter - Sakina Dna - 08/08/2016 10:12 AM EDT Caller requesting call back from provider: Is the caller the patient? YES If caller is not the patient, what is the callers name? N/A Callers relationship to patient? N/A Reason for call back: Patient wants to speak to Dr. Wong regarding her pain. Her lung doctor Dr. Richards said that she has a damaged nerve. Caller offered to speak with the nurse for assistance: YES Response: Patient offered to speak with nurse to assist them: refused offer documented in this encounter Plan of Treatment Not on file documented as of this encounter Visit Diagnoses Not on filedocumented in this encounter Care Teams Studio Operations Manager Relationship Specialty Start Date End Date Janessa Langley MD PCP - General Internal Medicine 12/02/15 11/03/19 Mark Caraballo MD PCP - General Family Practice 11/04/19 04/13/20 Janessa Langley MD PCP - General Internal Medicine 04/14/20 08/08/20 Layla Segal MD [address] [place] [address] PCP - General Internal Medicine 08/09/20 10/19/20 Amparo Pressley MD [address] [place] [address] PCP - General Internal Medicine 10/20/20 12/12/20 Layla Segal MD [address] [place] [address] PCP - General Internal Medicine 12/13/20 01/07/22 [facility], Pcp [address] [address] PCP - General Internal Medicine 01/08/22 Isela Roe MD 300 [facility] [address] [place] [address] Specialist Cardiology 10/28/20 documented as of this encounter
--- OUTSIDE RECORDS SUMMARY | 2024-06-01 16:51 | XMS_ITS | Encounter Summary ---
Author Organization [facility] Address [address] [place] [address] Care Team Providers Care Head Well Puller Name Role Phone Mark Alfonso MD Primary Care Provider Unavail able Janessa Langley MD Primary Care Provider Unavaila Mark Valera MD Primary Care Provider Unavail able Janessa Langley MD Primary Care Provider Unavaila Mark Mayo MD Primary Care Provider Unav ailable Janessa Langley MD Primary Care Provider Unavaila Layla Juarez MD Primary Care Provider [phone] Amparo Pressley MD Primary Care Provider Un available Isela Roe MD Unavailable [phone] Layla Segal MD Primary Care Provider [phone] [facility], Pcp Primary Care Provider Unavailabl e Reason for Visit * Reason Onset Date Comments Provider Call Back 04/02/2014 Encounter Details Date Type Department Care Team Description 04/02/2014 Telephone Physiatry [address] [address] Christopher Wong DO Provider Call Back Social [...] on filedocumented in this encounter Care Teams Head Well Puller Relationship Specialty Start Date End Date Mark [...] Medicine 04/14/20 08/08/20 Layla Segal MD [address] [place] [address] PCP - General Internal Medicine 08/09/20 10/19/20 Amparo Pressley MD [address] [place] [address] PCP - General Internal Medicine 10/20/20 12/12/20 Layla Segal MD [address] [place] [address] PCP - General Internal Medicine 12/13/20 01/07/22 [facility], Pcp [address] [address] PCP - General Internal Medicine 01/08/22 Isela Roe MD [address] [address] Specialist Cardiology 10/28/20 documented as of this encounter
--- OUTSIDE RECORDS SUMMARY | 2024-06-01 16:51 | XMS_ITS | Encounter Summary ---
Author Organization [facility] Address [address] [place] [address] Care Team Providers Care Clinical Trial Head Name Role Phone Mark Alfonso MD Primary Care Provider Unavail able Janessa Langley MD Primary Care Provider Unavaila Mark Valera MD Primary Care Provider Unavail able Janessa Langley MD Primary Care Provider Unavaila Mark Mayo MD Primary Care Provider Unav ailable Janessa Langley MD Primary Care Provider Unavaila Layla Juarez MD Primary Care Provider [phone] Amparo Pressley MD Primary Care Provider Un available Isela Roe MD Unavailable [phone] Layla Segal MD Primary Care Provider [phone] [facility], Pcp Primary Care Provider Unavailabl e Encounter Details Date Type Department Care Team Description 11/29/2014 Release of Information Medical Records [address] [place] [address] Abstract, Provider Social History Tobacco Use Types [...] filedocumented in this encounter Care Teams Clinical Trial Head Relationship Specialty Start Date End Date Mark [...] Medicine 04/14/20 08/08/20 Layla Segal MD [address] [place] [address] PCP - General Internal Medicine 08/09/20 10/19/20 Amparo Pressley MD [address] [place] [address] PCP - General Internal Medicine 10/20/20 12/12/20 Layla Segal MD [address] [place] [address] PCP - General Internal Medicine 12/13/20 01/07/22 [facility], Pcp [address] [address] PCP - General Internal Medicine 01/08/22 Isela Roe MD [address] [address] Specialist Cardiology 10/28/20 documented as of this encounter
--- OUTSIDE RECORDS SUMMARY | 2024-06-01 16:51 | XMS_ITS | Clinical Summary ---
Author Organization [facility] Address [address] [place] [address] Care Team Providers Care Steel Fitter Name Role Phone Isela Roe MD Unavailable [phone] [facility], Pcp Primary Care Provider Unavailabl e Allergies Active Allergy Reactions Severity Noted Date Comments Amoxicillin 06/23/2018 Azithromycin Nausea and Vomiting Medium 05/04/2010 Cats Hives/Urticaria 12/08/2014 Cefuroxime Rash/Dermatitis 09/06/2016 Cheese Hives/Urticaria 12/08/2014 Gabonese cheese, itchy throat Propoxyphene N-Apap Hives/Urticaria 03/23/2008 Erythromycin Anaphylaxis 03/23/2008 Lasix Palpitations High 06/23/2018 Exacerbated POTS, mild TN afterwards Penicillins 11/08/2015 Rabbit Protein Anaphylaxis 12/08/2014 [...] sleep apnea mild AHI 12 09/30 Overview: [facility] Polysomnogram: Date 10/19/2018; Wt 375#; BMI [...] RISK PATIENTS (#2) 01/24/2037 12/02/2015 Care Teams Steel Fitter Relationship Specialty Start Date End Date [facility], Pcp [address] [place] [address] PCP - General Internal Medicine 01/08/22 Isela Roe MD [address] [facility] [facility] [address] [place] [address] Specialist Cardiology 10/28/20
--- OUTSIDE RECORDS SUMMARY | 2024-06-01 16:51 | XMS_ITS | Encounter Summary ---
Author Organization [facility] Address [address] [place] [address] Care Team Providers Care Paste Worker Name Role Phone Janessa Langley MD Primary Care Provider UnavailMark Guadarrama MD Primary Care Provider Unav ailable Janessa Langley MD Primary Care Provider Unavaila Layla Juarez MD Primary Care Provider [phone] Amparo Pressley MD Primary Care Provider Un available Isela Roe MD Unavailable [phone] Layla Segal MD Primary Care Provider [phone] [facility] Primary Care Provider Unavailabl e Encounter Details Date Type Department Care Team Description 06/09/2019 Orders Only Medicine/Pediatrics - [address] [address] Janessa Langley MD Other screening mammogram Social [...] mammogram documented in this encounter Care Teams Paste Worker Relationship Specialty Start Date End Date Janessa Langley MD PCP - General Internal Medicine 12/02/15 11/03/19 Mark Caraballo MD PCP - General Family Practice 11/04/19 04/13/20 Janessa Langley MD PCP - General Internal Medicine 04/14/20 08/08/20 Layla Segal MD [address] [place] [address] PCP - General Internal Medicine 08/09/20 10/19/20 Amparo Pressley MD [address] [place] [address] PCP - General Internal Medicine 10/20/20 12/12/20 Layla Segal MD [address] [place] [address] PCP - General Internal Medicine 12/13/20 01/07/22 [facility], Pcp [address] [address] PCP - General Internal Medicine 01/08/22 Isela Roe MD [address] [address] Specialist Cardiology 10/28/20 documented as of this encounter
--- OUTSIDE RECORDS SUMMARY | 2024-06-01 16:51 | XMS_ITS | Encounter Summary ---
Author Organization [facility] Address [address] [place] [address] Care Team Providers Care Fruit Or Nut Crops Farm Manager Name Role Phone Janessa Langley MD Primary Care Provider UnavailMark Guadarrama MD Primary Care Provider Unav ailable Janessa Langley MD Primary Care Provider Unavaila Layla Juarez MD Primary Care Provider [phone] Amparo Pressley MD Primary Care Provider Un available Isela Roe MD Unavailable [phone] Layla Segal MD Primary Care Provider [phone] [facility] Primary Care Provider Unavailabl e Reason for Visit * Reason Comments E-prescribe Rx Request Encounter Details Date Type Department Care Team Description 11/02/2019 Refill Pulmonology - [place] [address] [facility] [address] [place] [address] Morales Richards MD [address] [place] [address] E-prescribe Rx Request Social History [...] persistent documented in this encounter Care Teams Fruit Or Nut Crops Farm Manager Relationship Specialty Start Date End Date Janessa Langley MD PCP - General Internal Medicine 12/02/15 11/03/19 Mark Caraballo MD PCP - General Family Practice 11/04/19 04/13/20 Janessa Langley MD PCP - General Internal Medicine 04/14/20 08/08/20 Layla Segal MD [address] [place] [address] PCP - General Internal Medicine 08/09/20 10/19/20 Amparo Pressley MD [address] [place] [address] PCP - General Internal Medicine 10/20/20 12/12/20 Layla Segal MD [address] [place] [address] PCP - General Internal Medicine 12/13/20 01/07/22 [facility], Pcp [address] [address] PCP - General Internal Medicine 01/08/22 Isela Roe MD [address] [address] Specialist Cardiology 10/28/20 documented as of this encounter
--- OUTSIDE RECORDS SUMMARY | 2024-06-01 16:51 | XMS_ITS | Encounter Summary ---
Author Organization [facility] Address [address] [place] [address] Care Team Providers Care Court Advocate Name Role Phone Amparo Pressley MD Primary Care Provider Un available Mark Alfonso MD Primary Care Provider Unavail able Janessa Langley MD Primary Care Provider Unavaila Mark Valera MD Primary Care Provider Unavail able Janessa Langley MD Primary Care Provider Unavaila Mark Mayo MD Primary Care Provider Unav ailable Janessa Langley MD Primary Care Provider Unavaila Layla Juarez MD Primary Care Provider [phone] Amparo Pressley MD Primary Care Provider Un available Isela Roe MD Unavailable [phone] Layla Segal MD Primary Care Provider [phone] [facility], Pcp Primary Care Provider Unavailabl e Encounter Details Date Type Department Care Team Description 02/29/2012 Luster Applicator Report Medical Records [address] [place], [place] [id number] [place] [address] Social History Tobacco Use Types Packs/Day Years [...] on filedocumented in this encounter Care Teams Court Advocate Relationship Specialty Start Date End Date Amparo [...] Medicine 04/14/20 08/08/20 Layla Segal MD [address] [place] [address] PCP - General Internal Medicine 08/09/20 10/19/20 Amparo Pressley MD PCP - General Internal Medicine 10/20/20 Layla Segal MD [address] [place] [address] PCP - General Internal Medicine 12/13/20 01/07/22 [facility], Pcp [address] [address] PCP - General Internal Medicine 01/08/22 Isela Roe MD 300 [facility] [address] [place] [address] Specialist Cardiology 10/28/20 documented as of this encounter
--- OUTSIDE RECORDS SUMMARY | 2024-06-01 16:51 | XMS_ITS | Encounter Summary ---
Author Organization [facility] Address [address] [place] [address] Care Team Providers Care Haunted History Tour Guide Name Role Phone Mark Alfonso MD Primary Care Provider Unavail able Janessa Langley MD Primary Care Provider Unavaila Mark Valera MD Primary Care Provider Unavail able Janessa Langley MD Primary Care Provider Unavaila Mark Mayo MD Primary Care Provider Unav ailable Janessa Langley MD Primary Care Provider Unavaila Layla Juarez MD Primary Care Provider [phone] Amparo Pressley MD Primary Care Provider Un available Isela Roe MD Unavailable [phone] Layla Segal MD Primary Care Provider [phone] [facility], Pcp Primary Care Provider Unavailabl e Reason for Visit * Reason Onset Date Comments Error 03/23/2014 Encounter Details Date Type Department Care Team Description 03/23/2014 Refill Adult Medicine [address] [address] Mark Alfonso MD Error Social History Tobacco [...] on filedocumented in this encounter Care Teams Haunted History Tour Guide Relationship Specialty Start Date End Date Mark [...] Medicine 04/14/20 08/08/20 Layla Segal MD [address] [place] [address] PCP - General Internal Medicine 08/09/20 10/19/20 Amparo Pressley MD [address] [place] [address] PCP - General Internal Medicine 10/20/20 12/12/20 Layla Segal MD [address] [place] [address] PCP - General Internal Medicine 12/13/20 01/07/22 [facility], Pcp [address] [address] PCP - General Internal Medicine 01/08/22 Isela Roe MD [address] [address] Specialist Cardiology 10/28/20 documented as of this encounter
--- OUTSIDE RECORDS SUMMARY | 2024-06-01 16:51 | XMS_ITS | Encounter Summary ---
Author Organization [facility] Address [address] [place] [address] Care Team Providers Care Cloud Engagement Partner Name Role Phone Mark Alfonso MD Primary Care Provider Unavail able Janessa Langley MD Primary Care Provider Unavaila Mark Valera MD Primary Care Provider Unavail able Janessa Langley MD Primary Care Provider Unavaila Mark Mayo MD Primary Care Provider Unav ailable Janessa Langley MD Primary Care Provider Unavaila Layla Juarez MD Primary Care Provider [phone] Amparo Pressley MD Primary Care Provider Un available Isela Roe MD Unavailable [phone] Layla Segal MD Primary Care Provider [phone] [facility], Pcp Primary Care Provider Unavailabl e Reason for Visit * Reason Onset Date Comments refill request 11/11/2014 Encounter Details Date Type Department Care Team Description 11/11/2014 Refill Adult Medicine [address] [address] Mark Alfonso MD refill request Social History [...] NO Patients current insurance carrier is: Payor: [facility] / Plan: FFS HMO $0 [place] [id number] / Product Type: MEDICAID RISK documented in this encounter Plan of Treatment Not on file documented as of this encounter Visit Diagnoses Not on filedocumented in this encounter Care Teams Cloud Engagement Partner Relationship Specialty Start Date End Date Mark [...] Medicine 04/14/20 08/08/20 Layla Segal MD [address] [place] [address] PCP - General Internal Medicine 08/09/20 10/19/20 Amparo Pressley MD [address] [place] [address] PCP - General Internal Medicine 10/20/20 12/12/20 Layla Segal MD [address] [place] [address] PCP - General Internal Medicine 12/13/20 01/07/22 [facility], Pcp [address] [address] PCP - General Internal Medicine 01/08/22 Isela Roe MD 300 [facility] [address] [place] [address] Specialist Cardiology 10/28/20 documented as of this encounter
--- OUTSIDE RECORDS SUMMARY | 2024-06-01 16:51 | XMS_ITS | Encounter Summary ---
Author Organization [facility] Address [address] [place] [address] Care Team Providers Care C Engineer Name Role Phone Amparo Pressley MD Primary Care Provider Un available Mark Alfonso MD Primary Care Provider Unavail able Janessa Langley MD Primary Care Provider Unavaila Mark Valera MD Primary Care Provider Unavail able Janessa Langley MD Primary Care Provider Unavaila Mark Mayo MD Primary Care Provider Unav ailable Janessa Langley MD Primary Care Provider Unavaila Layla Juarez MD Primary Care Provider [phone] Amparo Pressley MD Primary Care Provider Un available Isela Roe MD Unavailable [phone] Layla Segal MD Primary Care Provider [phone] [facility], Pcp Primary Care Provider Unavailabl e Encounter Details Date Type Department Care Team Description 05/23/2011 Controlled Substance Plan Medical Records [address] [place] [address] Abstract, Provider Social History Tobacco Use Types [...] on filedocumented in this encounter Care Teams C Engineer Relationship Specialty Start Date End Date Amparo [...] Medicine 04/14/20 08/08/20 Layla Segal MD [address] [place] [address] PCP - General Internal Medicine 08/09/20 10/19/20 Amparo Pressley MD PCP - General Internal Medicine 10/20/20 Layla Segal MD [address] [place] [address] PCP - General Internal Medicine 12/13/20 01/07/22 [facility], Pcp [address] [address] PCP - General Internal Medicine 01/08/22 Isela Roe MD 300 [facility] [address] [place] [address] Specialist Cardiology 10/28/20 documented as of this encounter
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
--- OUTSIDE RECORDS SUMMARY | 2024-06-01 16:51 | XMS_ITS | Encounter Summary ---
Author Organization [facility] Address [address] [place] [address] Care Team Providers Care Funeral Service Manager Name Role Phone Mark Alfonso MD Primary Care Provider Unavail able Janessa Langley MD Primary Care Provider Unavaila Mark Valera MD Primary Care Provider Unavail able Janessa Langley MD Primary Care Provider Unavaila Mark Mayo MD Primary Care Provider Unav ailable Janessa Langley MD Primary Care Provider Unavaila Layla Juarez MD Primary Care Provider [phone] Amparo Pressley MD Primary Care Provider Un available Isela Roe MD Unavailable [phone] Layla Segal MD Primary Care Provider [phone] [facility], Pcp Primary Care Provider Unavailabl e Encounter Details Date Type Department Care Team Description 02/10/2015 Senior Programmer Report Medical Records [address] [place] [address] Hollis Sweeney MD Social History Tobacco Use Types Packs/Day [...] on filedocumented in this encounter Care Teams Funeral Service Manager Relationship Specialty Start Date End Date Mark Alfonso MD PCP - General Internal Medicine 06/09/12 09/06/15 Jnaessa Langley MD PCP - General Internal Medicine 09/07/15 09/08/15 Mark Alfonso MD PCP - General Internal Medicine 09/09/15 12/01/15 Janessa Langley MD PCP - General Internal Medicine 12/02/15 11/03/19 Mark Caraballo MD PCP - General Family Practice 11/04/19 04/13/20 Janessa Langley MD PCP - General Internal Medicine 04/14/20 08/08/20 Layla Segal MD [address] [place] [address] PCP - General Internal Medicine 08/09/20 10/19/20 Amparo Pressley MD [address] [place] [address] PCP - General Internal Medicine 10/20/20 12/12/20 Layla Segal MD [address] [place] [address] PCP - General Internal Medicine 12/13/20 01/07/22 [facility], Pcp [address] [address] PCP - General Internal Medicine 01/08/22 Isela Roe MD [address] [address] Specialist Cardiology 10/28/20 documented as of this encounter
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
--- OUTSIDE RECORDS SUMMARY | 2024-06-01 16:52 | XMS_ITS | Encounter Summary ---
Author Organization [facility] Address [address] [place] [address] Care Team Providers Care Slice Cutting Machine Operator Helper Name Role Phone Janessa Langley MD Primary Care Provider UnavailMark Guadarrama MD Primary Care Provider Unav ailable Janessa Langley MD Primary Care Provider Unavaila Layla Juarez MD Primary Care Provider [phone] Amparo Pressley MD Primary Care Provider Un available Isela Reo MD Unavailable [phone] Layla Segal MD Primary Care Provider [phone] [facility] Primary Care Provider Unavailabl e Reason for Referral * Radiology Services (Routine) - Closed Specialty Diagnoses / Procedures Referred By Contlizet t Referred To Contact Radiology Diagnoses Hepatosplenomegaly Renal lesion Procedures CAT SCANS OF ABDOMEN W/WO CONTRAST Uma Martinez PA-C [address] [place] [address] [address] [address] [address] Referral ID Status Reason Start Date Expiration Date Visits Re quested Visits Authorized [id number] Closed 01/01/2017 03/01/2017 1 1 Reason for Visit * Reason Onset Date Comments TEST RESULTS 12/28/2016 Encounter Details Date Type Department Care Team Description 12/28/2016 Telephone Medicine/Pediatrics - [address] [phone] Uma Martinez PA-C TEST RESULTS Social History Tobacco Use Types Packs/Day Years Used Date Smoking Tobacco: Former Cigarettes 0.3 Q uit: 05/02/2015 Smokeless Tobacco: Never Alcohol Use Standard Drinks/Week Comments No 0 (1 standard drink = 0.6 oz pur e alcohol) Sex Assigned at Date Recorded Not on file documented as of this encounter Miscellaneous Notes * Telephone Encounter - Rosalba Stevens R.N. - 01/02/2017 1:38 PM EDT See [employer] message on 01/02/17 for MRI results to patient * Telephone Encounter - Janessa Langley MD - 12/28/2016 5:08 PM EDT No they wont show up MRI is just pelvis and hip * Telephone Encounter - Roxanne Kidd L.P.NLilliana - 12/28/2016 3:16 PM EDT Pt was notified as written below Pt states she is having an MRI tomorrow she is wondering if the kidneys will show on this * Telephone Encounter - Uma Martinez PA-C - 12/28/2016 3:03 PM EDT Please call the patient and ask if she went to the ED yesterday. She called with vaginal bleeding yesterday and was told to go to the ED. Her ultrasound showed enlargement of the liver and the spleen. This is commonly seen with mono which she tested positive for yesterday. They could only partially see the kidneys and there is a lesion on the left, but we need a CAT scanto get a better look. I will set this up for her in a month so that it can also serve as a recheck of the liver and spleen enlargement, too. She needs to avoid any activities that could result in blunt trauma to the abdomen like sports for the next 4 weeks and rest and push fluids. If she has severe abdominal pain she should go to the ER. Thank you! documented in this encounter Plan of Treatment Not on file documented as of this encounter Results * CAT SCANS OF ABDOMEN W/WO CONTRAST (01/11/2017 9:15 AM EDT) 01/11/2017 10:5 1 AM EDT Addenda Addendum by Sommer Man MD on 01/17/2017 5:41 PM EDT Addendum to the report. 110 cc of Optiray 240 were used for this examination. Impressions WILLIE HERMOSILLO OTHER EXTERNAL - 01/11/2017 11:13 AM EDT IMPRESSION: ??Hepatomegaly. Cyst in the left kidney. Partially included pleural- based density at the right base anteriorly. Chest CT may be considered for further assessment. RADIATION DOSE: ??ctdi c- 26.74 mGy 100 sec 23.64 mGy 3 min 23.64 mGy ?? . CONTRAST: ? Narrative [facility] OTHER EXTERNAL - 01/11/2017 11:[address] OF THE ABDOMEN HISTORY: ??Hepatosplenomegaly. Left kidney lesion. TECHNIQUE: ??Examination was performed to multidetector scanner before and after administration of intravenous contrast. Postcontrast studies were performed with 100 seconds and 3 minutes delay. FINDINGS: ??There is a arm approximately 2 cm lesion in the lower pole of the left kidney which revealed no enhancement with intravenous contrast. The density before administration of intravenous contrast is 6.9 Hounsfield units the density after administration of intravenous contrast is ??12.6 and 10.6 Hounsfield units, therefore the lesion is ??a cyst. Liver was visualized without focal lesions. There is no intra or extrahepatic biliary ducts dilatation. It measures up to 20 cm in long axis. Spleen measures 10.2 cm in length. There is no focal lesions. Gallbladder is surgically absent. Right kidney, both adrenal glands and pancreas are normal in appearance. Images obtained through the lung bases revealed partially ?? included pleural-based density in the anterior right base. It was not present on prior chest CT obtained on 05/21/2016. Chest CT may be considered for further assessment. There is no suspicious bony abnormalities. Procedure Note Sommer Man MD - 01/11/2017 CT OF THE ABDOMEN HISTORY: Hepatosplenomegaly. Left kidney lesion. TECHNIQUE: Examination was performed to multidetector scanner before andafter administration of intravenous contrast. Postcontrast studies were performed with 100seconds and 3 minutes delay. FINDINGS: There is a arm approximately 2 cm lesion in the lower pole ofthe left kidney which revealed no enhancement with intravenous contrast. The density beforeadministration of intravenous contrast is 6.9 Hounsfield units the density afteradministration of intravenous contrast is 12.6 and 10.6 Hounsfield units, therefore the lesion is acyst. Liver was visualized without focal lesions. There is no intra orextrahepatic biliary ducts dilatation. It measures up to 20 cm in long axis. Spleen measures 10.2 cmin length. There is no focal lesions. Gallbladder is surgically absent. Right kidney, bothadrenal glands and pancreas are normal in appearance. Images obtained through the lung basesrevealed partially included pleural-based density in the anterior right base. It was notpresent on prior chest CT obtained on 05/21/2016. Chest CT may be considered for further assessment.There is no suspicious bony abnormalities. IMPRESSION IMPRESSION: Hepatomegaly. Cyst in the left kidney. Partially includedpleural- based density at the right base anteriorly. Chest CT may be considered for furtherassessment. RADIATION DOSE: ctdi c- 26.74 mGy 100 sec 23.64 mGy 3 min 23.64 mGy . CONTRAST: Uma SPRINGER-Kavon CT SCANS [facility] OTHER EXTERNAL documented in this encounter Visit Diagnoses Diagnosis Hepatosplenomegaly- Primary Other chronic nonalcoholic liver disease Renal lesion Unspecified disorder of kidney and ureter Hepatosplenomegaly- Primary Other chronic nonalcoholic liver disease Renal lesion Unspecified disorder of kidney and ureter Lung density on x-ray Other diseases of lung, not elsewhere classified documented in this encounter Care Teams Slice Cutting Machine Operator Helper Relationship Specialty Start Date End Date Janessa Langley MD PCP - General Internal Medicine 12/02/15 11/03/19 Mark Caraballo MD PCP - General Family Practice 11/04/19 04/13/20 Janessa Langley MD PCP - General Internal Medicine 04/14/20 08/08/20 Layla Segal MD [address] [place] [address] PCP - General Internal Medicine 08/09/20 10/19/20 Amparo Pressley MD [address] [place] [address] PCP - General Internal Medicine 10/20/20 12/12/20 Layla Segal MD [address] [place] [address] PCP - General Internal Medicine 12/13/20 01/07/22 [facility] [address] [address] PCP - General Internal Medicine 01/08/22 Isela Roe MD 300 [facility] [address] [place] [address] Specialist Cardiology 10/28/20 documented as of this encounter
--- OUTSIDE RECORDS SUMMARY | 2024-06-01 16:52 | XMS_ITS | Encounter Summary ---
Author Organization [facility] Address [address] [place] [address] Care Team Providers Care Metalizer Field Operation Name Role Phone Janessa Langley MD Primary Care Provider UnavailMark Guadarrama MD Primary Care Provider Unav ailable Janessa Langley MD Primary Care Provider Unavaila Layla Juarez MD Primary Care Provider [phone] Amparo Pressley MD Primary Care Provider Un available Isela Roe MD Unavailable Layla Segal MD Primary Care Provider [phone] [facility], [facility] Primary Care Provider Unavailabl e Encounter Details Date Type Department Care Team Description 01/04/2017 Orders Only Medicine/Pediatrics - [address] [address] Janessa Langley MD Left hip pain; Pubic bone pain Social History Tobacco Use Types Packs/Day [...] Procedure Name Priority Date/Time Associated Diagnosis Comments MRI PELVIS; NO CONTRAST MAT Routine 12/29/2016 Pubic bone pain MRI OF LEG JOINT / LOWER EXT REMITY JOINT NO CONTRAST Routine 12/29/2016 Left hip pain documented in this encounter Results * MRI PELVIS; NO CONTRAST MAT (12/29/2016) Janessa Langley MD MRI * MRI OF HIPS/KNEES/ANKLE JOINTS NO CONTRAST (12/29/2016) Janessa Langley MD MRI documented in this encounter Visit Diagnoses Diagnosis Left hip pain Pain in joint, pelvic region and thigh Pubic bone pain Disorder of bone and cartilage, unspecified documented in this encounter Care Teams Metalizer Field Operation Relationship Specialty Start Date End Date Janessa Langley MD PCP - General Internal Medicine 12/02/15 11/03/19 Mark Caraballo MD PCP - General Family Practice 11/04/19 04/13/20 Janessa Langley MD PCP - General Internal Medicine 04/14/20 08/08/20 Layla Segal MD [address] [place] [address] PCP - General Internal Medicine 08/09/20 10/19/20 Amparo Pressley MD [address] [place] [address] PCP - General Internal Medicine 10/20/20 12/12/20 Layla Segal MD [address] [place] [address] PCP - General Internal Medicine 12/13/20 01/07/22 [facility], Pcp [address] [address] PCP - General Internal Medicine 01/08/22 Isela Roe MD [address] [address] Specialist Cardiology 10/28/20 documented as of this encounter
--- OUTSIDE RECORDS SUMMARY | 2024-06-01 16:52 | XMS_ITS | Encounter Summary ---
Author Organization [facility] Address [address] [place] [address] Care Team Providers Care Merchandise Pickup/Receiving Associate Name Role Phone Janessa Langley MD Primary Care Provider Mark Thomas MD Primary Care Provider Unav ailable Janessa Langley MD Primary Care Provider Unavaila Layla Juarez MD Primary Care Provider [phone] Amparo Pressley MD Primary Care Provider Un available Isela Roe MD Unavailable [phone] Layla Segal MD Primary Care Provider [phone] [facility] Primary Care Provider Unavailabl e Encounter Details Date Type Department Care Team Description 06/13/2018 Release of Information Medical Records [address] [place] [id number] Abstract, Provider Social History Tobacco Use Types [...] filedocumented in this encounter Care Teams Merchandise Pickup/Receiving Associate Relationship Specialty Start Date End Date Janessa Langley MD PCP - General Internal Medicine 12/02/15 11/03/19 Mark Caraballo MD PCP - General Family Practice 11/04/19 04/13/20 Janessa Langley MD PCP - General Internal Medicine 04/14/20 08/08/20 Layla Segal MD [address] [place] [address] PCP - General Internal Medicine 08/09/20 10/19/20 Amparo Pressley MD [address] [place] [address] PCP - General Internal Medicine 10/20/20 12/12/20 Layla Segal MD [address] [place] [address] PCP - General Internal Medicine 12/13/20 01/07/22 [facility], Pcp [address] [address] PCP - General Internal Medicine 01/08/22 Isela Roe MD 300 [facility] [address] [place] [address] Specialist Cardiology 10/28/20 documented as of this encounter
--- OUTSIDE RECORDS SUMMARY | 2024-06-01 16:52 | XMS_ITS | Encounter Summary ---
Author Organization [facility] Address [address] [place] [address] Care Team Providers Care Government Affairs Specialist Name Role Phone Janessa Langley MD Primary Care Provider UnavailMark Guadarrama MD Primary Care Provider Unav ailable Janessa Langley MD Primary Care Provider Unavaila Layla Juarez MD Primary Care Provider [phone] Amparo Pressley MD Primary Care Provider Un available Isela Roe MD Unavailable [phone] Layla Segal MD Primary Care Provider [phone] [facility], [facility] Primary Care Provider Unavailabl e Reason for Visit * Reason Onset Date Comments hospital follow up 03/03/2018 Encounter Details Date Type Department Care Team Description 03/03/2018 Telephone Cardiology - [address] [address] Shekhar Delarosa MD hospital follow up Social [...] on filedocumented in this encounter Care Teams Government Affairs Specialist Relationship Specialty Start Date End Date Janessa Langley MD PCP - General Internal Medicine 12/02/15 11/03/19 Mark Caraballo MD PCP - General Family Practice 11/04/19 04/13/20 Janessa Langley MD PCP - General Internal Medicine 04/14/20 08/08/20 Layla Segal MD [address] [place] [address] PCP - General Internal Medicine 08/09/20 10/19/20 Amparo Pressley MD [address] [place] [address] PCP - General Internal Medicine 10/20/20 12/12/20 Layla Segal MD [address] [place] [address] PCP - General Internal Medicine 12/13/20 01/07/22 [facility], Pcp [address] [address] PCP - General Internal Medicine 01/08/22 Isela Roe MD [address] [address] Specialist Cardiology 10/28/20 documented as of this encounter
--- OUTSIDE RECORDS SUMMARY | 2024-06-01 16:52 | XMS_ITS | Encounter Summary ---
Author Organization [facility] Address [address] [place] [address] Care Team Providers Care Community Support Professional Name Role Phone Janessa Langley MD Primary Care Provider UnavailMark Guadarrama MD Primary Care Provider Unav ailable Janessa Langley MD Primary Care Provider Unavaila Layla Juarez MD Primary Care Provider [phone] Amparo Pressley MD Primary Care Provider Un available Isela Roe MD Unavailable [phone] Layla Segal MD Primary Care Provider [phone] [facility], [facility] Primary Care Provider Unavailabl e Reason for Visit * Reason Onset Date Comments Cafeteria Team Leader Feedback 01/30/2017 MRI Lumbar spine Encounter Details Date Type Department Care Team Description 01/30/2017 Telephone Physiatry - [address] [address] Christopher Wong DO Cro Feedback (MRI Lumbar spine ) Social History Tobacco Use Types Packs/Day Years Used Date Smoking Tobacco: Former Cigarettes 0.3 Q uit: 05/02/2015 Smokeless Tobacco: Never Alcohol Use Standard Drinks/Week Comments No 0 (1 standard drink = 0.6 oz pur e alcohol) Sex Assigned at Date Recorded Not on file documented as of this encounter Miscellaneous Notes * Telephone Encounter - Leah Jayshreemike - 01/31/2017 8:23 AM EDT Appointment received via fax. 02/01/2017 @ 10:00 am. * Telephone Encounter - Leah Brooke - 01/30/2017 1:30 PM EDT Order and notes faxed to [facility]. Notification letter mailed to patient. Office will contact patient to book appointment. documented in this encounter Plan of Treatment Not on file documented as of this encounter Visit Diagnoses Not on filedocumented in this encounter Care Teams Community Support Professional Relationship Specialty Start Date End Date Janessa Langley MD PCP - General Internal Medicine 12/02/15 11/03/19 Mark Caraballo MD PCP - General Family Practice 11/04/19 04/13/20 Janessa Langley MD PCP - General Internal Medicine 04/14/20 08/08/20 Layla Segal MD [address] [place] [address] PCP - General Internal Medicine 08/09/20 10/19/20 Amparo Pressley MD [address] [place] [address] PCP - General Internal Medicine 10/20/20 12/12/20 Layla Segal MD [address] [place] [address] PCP - General Internal Medicine 12/13/20 01/07/22 [facility], Pcp [address] [address] PCP - General Internal Medicine 01/08/22 Isela Roe MD [address] [address] Specialist Cardiology 10/28/20 documented as of this encounter
--- OUTSIDE RECORDS SUMMARY | 2024-06-01 16:52 | XMS_ITS | Encounter Summary ---
Author Organization [facility] Address [address] [place] [address] Care Team Providers Care General Maintenance Engineer Name Role Phone Amparo Pressley MD Primary Care Provider Un available Mark Alfonso MD Primary Care Provider Unavail able Janessa Langley MD Primary Care Provider Unavaila Mark Valera MD Primary Care Provider Unavail able Janessa Langley MD Primary Care Provider Unavaila Mark Mayo MD Primary Care Provider Unav ailable Janessa Langley MD Primary Care Provider Unavaila Layla Juarez MD Primary Care Provider [phone] Amparo Pressley MD Primary Care Provider Un available Isela Roe MD Unavailable [phone] Layla Segal MD Primary Care Provider [phone] [facility], Pcp Primary Care Provider Unavailabl e Encounter Details Date Type Department Care Team Description 03/09/2012 Night Triage Doc Medical Records [address] [place] [address] Abstract, Provider Social History Tobacco Use Types [...] on filedocumented in this encounter Care Teams General Maintenance Engineer Relationship Specialty Start Date End Date [...] Medicine 04/14/20 08/08/20 Layla Segal MD [address] [place] [address] PCP - General Internal Medicine 08/09/20 10/19/20 Amparo Pressley MD PCP - General Internal Medicine 10/20/20 Layla Segal MD [address] [place] [address] PCP - General Internal Medicine 12/13/20 01/07/22 [facility], Pcp [address] [address] PCP - General Internal Medicine 01/08/22 Isela Roe MD 300 [facility] [address] [place] [address] Specialist Cardiology 10/28/20 documented as of this encounter
--- OUTSIDE RECORDS SUMMARY | 2024-06-01 16:52 | XMS_ITS | Encounter Summary ---
Author Organization [facility] Address [address] [place] [address] Care Team Providers Care Industrial Methods Consultant Name Role Phone Janessa Langley MD Primary Care Provider Mark Thomas MD Primary Care Provider Unav ailable Janessa Langley MD Primary Care Provider Unavaila Layla Juarez MD Primary Care Provider [phone] Amparo Pressley MD Primary Care Provider Un available Isela Roe MD Unavailable [phone] Layla Segal MD Primary Care Provider [phone] [facility] Primary Care Provider Unavailabl e Encounter Details Date Type Department Care Team Description 04/25/2018 Turning Machine Operator Report Medical Records [address] [place] [address] [facility] Social History Tobacco Use Types Packs/Day [...] on filedocumented in this encounter Care Teams Industrial Methods Consultant Relationship Specialty Start Date End Date Janessa Langley MD PCP - General Internal Medicine 12/02/15 11/03/19 Mark Caraballo MD PCP - General Family Practice 11/04/19 04/13/20 Janessa Langley MD PCP - General Internal Medicine 04/14/20 08/08/20 Layla Segal MD [address] [place] [address] PCP - General Internal Medicine 08/09/20 10/19/20 Amparo Pressley MD [address] [place] [address] PCP - General Internal Medicine 10/20/20 12/12/20 Layla Segal MD [address] [place] [address] PCP - General Internal Medicine 12/13/20 01/07/22 [facility], Pcp [address] [address] PCP - General Internal Medicine 01/08/22 Isela Roe MD 300 [facility] [address] [place] [address] Specialist Cardiology 10/28/20 documented as of this encounter
--- OUTSIDE RECORDS SUMMARY | 2024-06-01 16:52 | XMS_ITS | Encounter Summary ---
Author Organization [facility] Address [address] [place] [address] Care Team Providers Care Lasting Room Machine Operator Name Role Phone Janessa Langley MD Primary Care Provider Mark Thomas MD Primary Care Provider Unav ailable Janessa Langley MD Primary Care Provider Unavaila Layla Juarez MD Primary Care Provider [phone] Amparo Pressley MD Primary Care Provider Un available Isela Roe MD Unavailable Layla Segal MD Primary Care Provider [phone] [facility] Primary Care Provider Unavailabl e Encounter Details Date Type Department Care Team Description 10/08/2016 Hog Slaughterer Report Medical Records [address] [place] [address] Kiersten Wilkes MD Social History Tobacco Use [...] on filedocumented in this encounter Care Teams Lasting Room Machine Operator Relationship Specialty Start Date End Date Janessa Langley MD PCP - General Internal Medicine 12/02/15 11/03/19 Mark Caraballo MD PCP - General Family Practice 11/04/19 04/13/20 Janessa Langley MD PCP - General Internal Medicine 04/14/20 08/08/20 Layla Segal MD [address] [place] [address] PCP - General Internal Medicine 08/09/20 10/19/20 Amparo Pressley MD [address] [place] [address] PCP - General Internal Medicine 10/20/20 12/12/20 Layla Segal MD [address] [place] [address] PCP - General Internal Medicine 12/13/20 01/07/22 [facility], Pcp [address] [address] PCP - General Internal Medicine 01/08/22 Isela Roe MD 300 [facility] [address] [place] [address] Specialist Cardiology 10/28/20 documented as of this encounter
--- OUTSIDE RECORDS SUMMARY | 2024-06-01 16:52 | XMS_ITS | Encounter Summary ---
Author Organization [facility] Address [address] [place] [address] Care Team Providers Care Hearth Feeder Name Role Phone Amparo Pressley MD Primary Care Provider Un available Mark Alfonso MD Primary Care Provider Unavail able Janessa Langley MD Primary Care Provider Unavaila Mark Valera MD Primary Care Provider Unavail able Janessa Langley MD Primary Care Provider Unavaila Mark Mayo MD Primary Care Provider Unav ailable Janessa Langley MD Primary Care Provider Unavaila Layla Juarez MD Primary Care Provider [phone] Amparo Pressley MD Primary Care Provider Un available Isela Roe MD Unavailable [phone] Layla Segal MD Primary Care Provider [phone] [facility] Primary Care Provider Unavailabl e Encounter Details Date Type Department Care Team Description 01/04/2010 Ballet Professor Report Medical Records [address] [place] [address] Iker Shankar Social History Tobacco Use Types [...] on filedocumented in this encounter Care Teams Hearth Feeder Relationship Specialty Start Date End Date Amparo [...] Medicine 04/14/20 08/08/20 Layla Segal MD [address] [place] [address] PCP - General Internal Medicine 08/09/20 10/19/20 Amparo Pressley MD PCP - General Internal Medicine 10/20/20 Layla Segal MD [address] [place] [address] PCP - General Internal Medicine 12/13/20 01/07/22 [facility], Pcp [address] [address] PCP - General Internal Medicine 01/08/22 Isela Roe MD [address] [address] Specialist Cardiology 10/28/20 documented as of this encounter
--- OUTSIDE RECORDS SUMMARY | 2024-06-01 16:52 | XMS_ITS | Encounter Summary ---
Author Organization [facility] Address [address] [place] [address] Care Team Providers Care Senior Telecommunications Technician Name Role Phone Janessa Langley MD Primary Care Provider Mark Thomas MD Primary Care Provider Unav ailable Janessa Langley MD Primary Care Provider Unavaila Layla Juarez MD Primary Care Provider [phone] Amparo Pressley MD Primary Care Provider Un available Isela Roe MD Unavailable [phone] Layla Segal MD Primary Care Provider [phone] [facility] Primary Care Provider Unavailabl e Encounter Details Date Type Department Care Team Description 05/25/2018 Hospital Medical Records [address] [place], [place] [address] [place] [address] Social History Tobacco Use Types Packs/Day Years [...] filedocumented in this encounter Care Teams Senior Telecommunications Technician Relationship Specialty Start Date End Date Janessa Langley MD PCP - General Internal Medicine 12/02/15 11/03/19 Mark Caraballo MD PCP - General Family Practice 11/04/19 04/13/20 Janessa Langley MD PCP - General Internal Medicine 04/14/20 08/08/20 Layla Segal MD [address] [place] [address] PCP - General Internal Medicine 08/09/20 10/19/20 Amparo Presslye MD [address] [place] [address] PCP - General Internal Medicine 10/20/20 12/12/20 Layla Segal MD [address] [place] [address] PCP - General Internal Medicine 12/13/20 01/07/22 [facility], Pcp [address] [address] PCP - General Internal Medicine 01/08/22 Isela Roe MD 300 [facility] [address] [place] [address] Specialist Cardiology 10/28/20 documented as of this encounter
--- OUTSIDE RECORDS SUMMARY | 2024-06-01 16:52 | XMS_ITS | Encounter Summary ---
Author Organization [facility] Address [address] [place] [address] Care Team Providers Care Tube Backer Name Role Phone Janessa Langley MD Primary Care Provider Mark Thomas MD Primary Care Provider Unav ailable Janessa Langley MD Primary Care Provider Unavaila Layla Juarez MD Primary Care Provider [phone] Amparo Pressley MD Primary Care Provider Un available Isela Roe MD Unavailable [phone] Layla Segal MD Primary Care Provider [phone] [facility] Primary Care Provider Unavailabl e Encounter Details Date Type Department Care Team Description 11/05/2016 Commissioning Manager Report Medical Records [address] [place] [address] Kiersten Wilkes MD Social History Tobacco Use [...] filedocumented in this encounter Care Teams Tube Backer Relationship Specialty Start Date End Date Janessa Langley MD PCP - General Internal Medicine 12/02/15 11/03/19 Mark Caraballo MD PCP - General Family Practice 11/04/19 04/13/20 Janessa Langley MD PCP - General Internal Medicine 04/14/20 08/08/20 Layla Segal MD [address] [place] [address] PCP - General Internal Medicine 08/09/20 10/19/20 Amparo Pressley MD [address] [place] [address] PCP - General Internal Medicine 10/20/20 12/12/20 Layla Segal MD [address] [place] [address] PCP - General Internal Medicine 12/13/20 01/07/22 [facility], Pcp [address] [address] PCP - General Internal Medicine 01/08/22 Isela Roe MD 300 [facility] [address] [place] [address] Specialist Cardiology 10/28/20 documented as of this encounter
--- OUTSIDE RECORDS SUMMARY | 2024-06-01 16:52 | XMS_ITS | Encounter Summary ---
Author Organization [facility] Address [address] [place] [address] Care Team Providers Care Silver Solderer Name Role Phone Janessa Langley MD Primary Care Provider Mark Thomas MD Primary Care Provider Unav ailable Janessa Langley MD Primary Care Provider Unavaila Layla Juarez MD Primary Care Provider [phone] Amparo Pressley MD Primary Care Provider Un available Isela Roe MD Unavailable [phone] Layla Segal MD Primary Care Provider [phone] [facility] Primary Care Provider Unavailabl e Encounter Details Date Type Department Care Team Description 05/25/2018 Hospital Medical Records [address] [place], [place] [address] [place] [address] Social History Tobacco Use Types Packs/Day Years [...] on filedocumented in this encounter Care Teams Silver Solderer Relationship Specialty Start Date End Date Janessa Langley MD PCP - General Internal Medicine 12/02/15 11/03/19 Mark Caraballo MD PCP - General Family Practice 11/04/19 04/13/20 Janessa Langley MD PCP - General Internal Medicine 04/14/20 08/08/20 aLyla Segal MD [address] [place] [address] PCP - General Internal Medicine 08/09/20 10/19/20 Amparo Pressley MD [address] [place] [address] PCP - General Internal Medicine 10/20/20 12/12/20 Layla Segal MD [address] [place] [address] PCP - General Internal Medicine 12/13/20 01/07/22 [facility], Pcp [address] [address] PCP - General Internal Medicine 01/08/22 Isela Roe MD 300 [facility] [address] [place] [address] Specialist Cardiology 10/28/20 documented as of this encounter
--- OUTSIDE RECORDS SUMMARY | 2024-06-01 16:52 | XMS_ITS | Encounter Summary ---
Author Organization [facility] Address [address] [place] [address] Care Team Providers Care Lieutenant/Deputy Name Role Phone Janessa Langley MD Primary Care Provider UnavailMark Guadarrama MD Primary Care Provider Unav ailable Janessa Langley MD Primary Care Provider Unavaila Layla Juarez MD Primary Care Provider [phone] Amparo Pressley MD Primary Care Provider Un available Isela Roe MD Unavailable [phone] Layla Segal MD Primary Care Provider [phone] [facility] Primary Care Provider Unavailabl e Encounter Details Date Type Department Care Team Description 02/12/2017 Orders Only Physiatry - [address] [address] Christopher Wong DO Lumbar radiculitis; Lumbar herniated disc Social History Tobacco Use Types Packs/Day Years [...] Name Priority Date/Time Associated Diagnosis Comments MRI OF LUMBAR SPINE NO CONTRAST Routine 02/01/2017 Lumbar radiculitis Lumbar herniated disc documented in this encounter Results * MRI OF LUMBAR SPINE NO CONTRAST (02/01/2017) Christopher Wong DO MRI documented in this encounter Visit Diagnoses Diagnosis Lumbar radiculitis Thoracic or lumbosacral neuritis or radiculitis, unspecified Lumbar herniated disc Displacement of lumbar intervertebral disc without myelopathy documented in this encounter Care Teams Lieutenant/Deputy Relationship Specialty Start Date End Date Janessa Langley MD PCP - General Internal Medicine 12/02/15 11/03/19 Mark Caraballo MD PCP - General Family Practice 11/04/19 04/13/20 Janessa Langley MD PCP - General Internal Medicine 04/14/20 08/08/20 Layla Segal MD [address] [place] [address] PCP - General Internal Medicine 08/09/20 10/19/20 Amparo Pressley MD [address] [place] [address] PCP - General Internal Medicine 10/20/20 12/12/20 Layla Segal MD [address] [place] [address] PCP - General Internal Medicine 12/13/20 01/07/22 [facility] Pcp [address] [address] PCP - General Internal Medicine 01/08/22 Isela Roe MD [address] [address] Specialist Cardiology 10/28/20 documented as of this encounter
--- OUTSIDE RECORDS SUMMARY | 2024-06-01 16:52 | XMS_ITS | Encounter Summary ---
[facility] Organization [facility] Address [address] [place] [address] Care Team Providers Care Information Technology Director Name Role Phone Janessa Langley MD Primary Care Provider Mark Thomas MD Primary Care Provider Unav ailable Janessa Langley MD Primary Care Provider Unavaila Layla Juarez MD Primary Care Provider [phone] Amparo Pressley MD Primary Care Provider Un available Isela Roe MD Unavailable [phone] Layla Segal MD Primary Care Provider [phone] [facility] Primary Care Provider Unavailabl e Encounter Details Date Type Department Care Team Description 11/13/2017 [facility] Controlled Substance Contract Medical Records [address] [place] [address] Abstract, Provider Social History Tobacco Use Types [...] on filedocumented in this encounter Care Teams Information Technology Director Relationship Specialty Start Date End Date Janessa Langley MD PCP - General Internal Medicine 12/02/15 11/03/19 Mark Caraballo MD PCP - General Family Practice 11/04/19 04/13/20 Janessa Langley MD PCP - General Internal Medicine 04/14/20 08/08/20 Layla Segal MD [address] [place] [address] PCP - General Internal Medicine 08/09/20 10/19/20 Amparo Pressley MD [address] [place] [address] PCP - General Internal Medicine 10/20/20 12/12/20 Layla Segal MD [address] [place] [address] PCP - General Internal Medicine 12/13/20 01/07/22 [facility], Pcp [address] [address] PCP - General Internal Medicine 01/08/22 Isela Roe MD 300 [facility] [address] [place] [address] Specialist Cardiology 10/28/20 documented as of this encounter
--- OUTSIDE RECORDS SUMMARY | 2024-06-01 16:52 | XMS_ITS | Encounter Summary ---
[facility] Address [address] [place] [address] Care Team Providers Care Stock Tracer Name Role Phone Janessa Langley MD Primary Care Provider Mark Thomas MD Primary Care Provider Unav ailable Janessa Langley MD Primary Care Provider Unavaila Layla Juarez MD Primary Care Provider [phone] Amparo Pressley MD Primary Care Provider Un available Isela Roe MD Unavailable [phone] Layla Segal MD Primary Care Provider [phone] [facility] Primary Care Provider Unavailabl e Encounter Details Date Type Department Care Team Description 11/25/2016 Release of Information Medical Records [address] [place] [address] Abstract, Provider Social History Tobacco Use Types [...] on filedocumented in this encounter Care Teams Stock Tracer Relationship Specialty Start Date End Date Janessa Langley MD PCP - General Internal Medicine 12/02/15 11/03/19 Mark Caraballo MD PCP - General Family Practice 11/04/19 04/13/20 Janessa Langley MD PCP - General Internal Medicine 04/14/20 08/08/20 Layla Segal MD [address] [place] [address] PCP - General Internal Medicine 08/09/20 10/19/20 Amparo Pressley MD [address] [place] [address] PCP - General Internal Medicine 10/20/20 12/12/20 Layla Segal MD [address] [place] [address] PCP - General Internal Medicine 12/13/20 01/07/22 [facility], Pcp 300 [facility] [address] [place] [address] PCP - General Internal Medicine 01/08/22 Isela Roe MD 300 [facility] [address] [place] [address] Specialist Cardiology 10/28/20 documented as of this encounter
--- OUTSIDE RECORDS SUMMARY | 2024-06-01 16:52 | XMS_ITS | Encounter Summary ---
Author Organization [facility] Address [address] [place] [address] Care Team Providers Care Office Rental Clerk Name Role Phone Janessa Langley MD Primary Care Provider UnavailMark Guadarrama MD Primary Care Provider Unav ailable Janessa Langley MD Primary Care Provider Unavaila Layla Juarez MD Primary Care Provider [phone] Amparo Pressley MD Primary Care Provider Un available Isela Roe MD Unavailable [phone] Layla Segal MD Primary Care Provider [phone] [facility] Primary Care Provider Unavailabl e Encounter Details Date Type Department Care Team Description 11/23/2017 Pt. Non Urgent Medic al Question Physiatry - [address] [address] Christopher Wong DO Social History Tobacco Use [...] affecting my left leg to toes,bottom lower prospecting observer backpain Hi I saw Narendra this past Saturday and he to see you as soon as possible and suggested to get and updated MRI. If I need to get an MRI,I go to the open one at [facility]. The pain is progressively getting wore and [...] on filedocumented in this encounter Care Teams Office Rental Clerk Relationship Specialty Start Date End Date Janessa Langley MD PCP - General Internal Medicine 12/02/15 11/03/19 Mark Caraballo MD PCP - General Family Practice 11/04/19 04/13/20 Janessa Langley MD PCP - General Internal Medicine 04/14/20 08/08/20 Layla Segal MD [address] [place] [address] PCP - General Internal Medicine 08/09/20 10/19/20 Amparo Pressley MD [address] [place] [address] PCP - General Internal Medicine 10/20/20 12/12/20 Layla Segal MD [address] [place] [address] PCP - General Internal Medicine 12/13/20 01/07/22 [facility], Pcp [address] [address] PCP - General Internal Medicine 01/08/22 Isela Roe MD [address] [address] Specialist Cardiology 10/28/20 documented as of this encounter
--- OUTSIDE RECORDS SUMMARY | 2024-06-01 16:52 | XMS_ITS | Encounter Summary ---
[facility] Address [address] [place] [address] Care Team Providers Care Warehouse Technician Name Role Phone Janessa Langley MD Primary Care Provider Mark Thomas MD Primary Care Provider Unav ailable Janessa Langley MD Primary Care Provider Unavaila Layla Juarez MD Primary Care Provider [phone] Amparo Pressley MD Primary Care Provider Un available Isela Roe MD Unavailable [phone] Layla Segal MD Primary Care Provider [phone] [facility] Primary Care Provider Unavailabl e Encounter Details Date Type Department Care Team Description 01/28/2017 Release of Information Medical Records [address] [place] [address] Abstract, Provider Social History Tobacco Use Types [...] on filedocumented in this encounter Care Teams Warehouse Technician Relationship Specialty Start Date End Date Janessa Langley MD PCP - General Internal Medicine 12/02/15 11/03/19 Mark Caraballo MD PCP - General Family Practice 11/04/19 04/13/20 Janessa Langley MD PCP - General Internal Medicine 04/14/20 08/08/20 Layla Segal MD [address] [place] [address] PCP - General Internal Medicine 08/09/20 10/19/20 Amparo Pressley MD [address] [place] [address] PCP - General Internal Medicine 10/20/20 12/12/20 Layla Segal MD [address] [place] [address] PCP - General Internal Medicine 12/13/20 01/07/22 [facility] 300 [facility] [address] [place] [address] PCP - General Internal Medicine 01/08/22 Isela Roe MD 300 [facility] [address] [place] [address] Specialist Cardiology 10/28/20 documented as of this encounter
--- OUTSIDE RECORDS SUMMARY | 2024-06-01 16:52 | XMS_ITS | Encounter Summary ---
[facility] Address [address] [place] [address] Care Team Providers Care Staff Nurse Midwife Name Role Phone Janessa Langley MD Primary Care Provider Mark Thomas MD Primary Care Provider Unav ailable Janessa Langley MD Primary Care Provider Unavaila Layla Juarez MD Primary Care Provider [phone] Amparo Pressley MD Primary Care Provider Un available Isela Roe MD Unavailable Layla Segal MD Primary Care Provider [phone] [facility] Primary Care Provider Unavailabl e Encounter Details Date Type Department Care Team Description 11/05/2016 Pediatric Pathologist Report Medical Records [address] [place] [address] Kiersten Wilkes MD Social History Tobacco Use [...] on filedocumented in this encounter Care Teams Staff Nurse Midwife Relationship Specialty Start Date End Date Janessa Langley MD PCP - General Internal Medicine 12/02/15 11/03/19 Mark Caraballo MD PCP - General Family Practice 11/04/19 04/13/20 Janessa Langley MD PCP - General Internal Medicine 04/14/20 08/08/20 Layla Segal MD [address] [place] [address] PCP - General Internal Medicine 08/09/20 10/19/20 Amparo Pressley MD [address] [place] [address] PCP - General Internal Medicine 10/20/20 12/12/20 Layla Segal MD [address] [place] [address] PCP - General Internal Medicine 12/13/20 01/07/22 [facility], Pcp [address] [address] PCP - General Internal Medicine 01/08/22 Isela Roe MD 300 [facility] [address] [place] [address] Specialist Cardiology 10/28/20 documented as of this encounter
--- OUTSIDE RECORDS SUMMARY | 2024-06-01 16:52 | XMS_ITS | Encounter Summary ---
[facility] Address [address] [place] [address] Care Team Providers Care Energy Operations Vice President Name Role Phone Janessa Langley MD Primary Care Provider Mark Thomas MD Primary Care Provider Unav ailable Janessa Langley MD Primary Care Provider Unavaila aLyla Juarez MD Primary Care Provider [phone] Amparo Pressley MD Primary Care Provider Un available Isela Roe MD Unavailable [phone] Layla Segal MD Primary Care Provider [phone] [facility] Encounter Details Date Type Department Care Team Description 01/24/2017 [facility] [address] [place] [address] Abstract, Provider Social History Tobacco Use Types [...] on filedocumented in this encounter Care Teams Energy Operations Vice President Relationship Specialty Start Date End Date Janessa Langley MD PCP - General Internal Medicine 12/02/15 11/03/19 Mark Caraballo MD PCP - General Family Practice 11/04/19 04/13/20 Janessa Langley MD PCP - General Internal Medicine 04/14/20 08/08/20 Layla Segal MD [address] [place] [address] PCP - General Internal Medicine 08/09/20 10/19/20 Amparo Pressley MD [address] [place] [address] PCP - General Internal Medicine 10/20/20 12/12/20 Layla Segal MD [address] [place] [address] PCP - General Internal Medicine 12/13/20 01/07/22 [facility], Pcp 300 [facility] [address] [place] [address] PCP - General Internal Medicine 01/08/22 Isela Roe MD 300 [facility] [address] [place] [address] Specialist Cardiology 10/28/20 documented as of this encounter
--- OUTSIDE RECORDS SUMMARY | 2024-06-01 16:52 | XMS_ITS | Encounter Summary ---
Author Organization [facility] Address [address] [place] [address] Care Team Providers Care Team Supervisor Name Role Phone Janessa Langley MD Primary Care Provider UnavailMark Guadarrama MD Primary Care Provider Unav ailable Janessa Langley MD Primary Care Provider Unavaila Layla Juarez MD Primary Care Provider [phone] Amparo Pressley MD Primary Care Provider Un available Isela Roe MD Unavailable [phone] Layla Segal MD Primary Care Provider [phone] [facility] Primary Care Provider Unavailabl e Reason for Referral * Non GOYO (Routine) - Authorized/Booked Specialty Diagnoses / Procedures Referred By Contlizet t Referred To Contact Dermatology Procedures REFERRAL TO DERMATOLOGY Janessa Langley MD [address] [place] [address] Derm/[facility] [address] [place] [address] Referral ID Status Reason Start Date Expiration Date V isits Requested Visits Authorized [id number] Authorized/B ooked 02/27/2017 02/27/2018 12 12 Reason for Visit * Reason Onset Date Comments Bronc Breaker Feedback 02/27/2017 derm Encounter Details Date Type Department Care Team Description 02/27/2017 Telephone Medicine/Pediatrics - [address] [address] Janessa Langley MD Bronc Breaker Feedback (derm) Social History Tobacco Use Types [...] referral needs to start: charles Tian Payor: [employer] FFS / Plan: FFS HMO $0 [place] [id number] / Product Type: MEDICAID RISK documented in this encounter Plan of Treatment Not on file documented as of this encounter Visit Diagnoses Not on filedocumented in this encounter Care Teams Team Supervisor Relationship Specialty Start Date End Date Janessa Langley MD PCP - General Internal Medicine 12/02/15 11/03/19 Mark Caraballo MD PCP - General Family Practice 11/04/19 04/13/20 Janessa Langley MD PCP - General Internal Medicine 04/14/20 08/08/20 Layla Segal MD [address] [place] [address] PCP - General Internal Medicine 08/09/20 10/19/20 Amparo Pressley MD [address] [place] [address] PCP - General Internal Medicine 10/20/20 12/12/20 Layla Segal MD [address] [place] [address] PCP - General Internal Medicine 12/13/20 01/07/22 [facility], Pcp [address] [address] PCP - General Internal Medicine 01/08/22 Isela Roe MD 300 [facility] [address] [place] [address] Specialist Cardiology 10/28/20 documented as of this encounter
== END 2024-06-01 13:29 | disposition home or self-care (01) ==
LOC: HO.HVNA 13:28
PROVIDERS: Visit Provider Internal Medicine
DX: Z85.850 Personal history of malignant neoplasm of thyroid (principal)
CPT/HCPCS: 36415; 83036

== ENCOUNTER 2024-07-07 14:51 | Inpatient (IN) | payer OTHER, SELFPAY ==
--- NOTE | ~2024-07-07 | XR_ITS ---
EXAMINATION: XR CHEST 2 VIEWS HISTORY: pain COMPARISON: Comparison is made with the prior examination dated 03/19/2016. FINDINGS: AP and lateral views of the chest are submitted. The examination is limited by patient body habitus. There is subsegmental atelectasis versus scarring in the left lower lobe. The right lung is clear. There is no pleural effusion, pneumothorax, or pulmonary vascular congestion. The heart is normal in size. The bones are intact. XR/XR chest 2V IMPRESSION: Subsegmental atelectasis versus scarring in the left lower lobe. Electronically signed by: Chris Hernandes MD 07/07/2024 03:42 PM EDT
[2024-07-07 14:56] VITALS: BP 149/81; PULSE 100; RESP 19; TEMP 36.6; O2SAT 100; BMI 82.9
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
--- NOTE | 2024-07-07 14:59 | ECG_ITS ---
Test Reason : SOB Blood Pressure : */* mmHG Vent. Rate : 102 BPM Atrial Rate : 102 BPM P-R Int : 130 ms QRS Dur : 92 ms QT Int : 390 ms P-R-T Axes : 62 95 13 degrees QTcB Int : 508 ms Sinus tachycardia with Premature supraventricular complexes Rightward axis Borderline ECG When compared with ECG of 23-Aug-2007 18:55, No significant changes seen Referred By: Shaji Werner Electronically Signed By: Ab Deluna
[2024-07-07 16:03] LABS: MANUAL DIFF FLAG NO
[2024-07-07 16:05] LABS: Basophils Absolute Auto 0.1 X10*3/uL (0.0-0.2); Basophils Percent Auto 0.5 % (0-2); Eosinophils Absolute Auto 0.7 X10*3/uL (0.0-0.4); Eosinophils Percent Auto 6.7 % (0-4); Hematocrit 36.9 % (37.0-47.0); Hemoglobin 11.6 g/dl (12.0-16.0); Imm Gran Abs Auto 0.25 X10*3/uL (0.00-0.03); Imm Gran Pct Auto 2.3 % (0.0-0.4); Lymphocytes Absolute Auto 2.1 X10*3/uL (1.2-4.9); Lymphocytes Percent Auto 18.8 % (20-40); Mean Corpuscular HGB Conc 31.4 g/dl (31.0-35.0); Mean Corpuscular Hemoglobin 27.9 pg (27.0-33.0); Mean Corpuscular Volume 88.7 fL (80.0-98.0); Mean Platelet Volume 8.2 fL (9.4-12.3); Monocytes Absolute Auto 0.8 X10*3/uL (0.1-1.2); Monocytes Percent Auto 7.5 % (2-11); Neutrophils Absolute Auto 7.1 x10*3/uL (2.0-8.3); Neutrophils Percent Auto 64.2 % (45-73); Platelet Count 405 X10*3/uL (160-400); Red Blood Count 4.16 X10*6/uL (4.20-5.50); Red Cell Distribution Width 15.7 % (11.0-16.0); White Blood Count 11.1 X10*3/uL (4.8-10.8)
[2024-07-07 16:22] LABS: Alanine Aminotransferase 32 U/L (0-31); Albumin Level 3.9 g/dL (3.5-5.0); Alkaline Phosphatase 92 U/L (39-117); Anion Gap 13 (12-20); Aspartate Amino Transferase 39 U/L (5-31); Bilirubin Total 0.4 mg/dL (0.0-1.0); Blood Urea Nitrogen 23 mg/dL (9-16); Calcium 8.8 mg/dL (8.4-10.2); Carbon Dioxide 34 mmol/L (22-29); Chloride 96 mmol/L (96-108); Creatinine Clr Calc Pharmacy 172.6; Estimated Glomerular Filt Rate > 60; Glucose Random 115 mg/dL (60-115); Lactic Acid 1.2 mmol/L (0.5-2.0); Potassium 4.1 mmol/L (3.3-5.1); Sodium 139 mmol/L (135-145)
[2024-07-07 16:27] LABS: B Type Natriuretic Peptide < 10 pg/mL (<100)
[2024-07-07 16:41] LABS: Influenza A PCR NEGATIVE (Negative); Influenza B PCR NEGATIVE (Negative); Resp Syncy Virus RNA Qual PCR NEGATIVE (Negative); SARS COV2 PCR INHOUSE NEGATIVE (Negative)
[2024-07-07 16:58] VITALS: BP 104/56; PULSE 101; RESP 20; O2SAT 99
[2024-07-07 17:04] LABS: Beta-Hydroxybutyrate 0.08 mmol/L (0.02-0.27); C Reactive Protein 4.84 mg/dL (< or = 0.50)
[2024-07-07 17:56] LABS: Erythrocyte Sedimentation Rate 83 MM/HR (0-20)
--- NOTE | 2024-07-07 18:27 | P.HPHOSP_ITS ---
History of Present Illness Date of Service: 07/07/24 Attending physician on admission: Micaela Garcia Chief Complaint: leg infection 54-year-old female with history of CVA, mi, CHARITO on CPAP, chronic hypoxemic/hypercapnic respiratory failure, CHF, history of thyroid cancer s/p total thyroidectomy, GERD, pots, type 2 diabetes, lymphedema, who is morbidly obese with BMI greater than 82 presented to the ED earlier today from wound care clinic for evaluation of infection in the bilateral lower legs. The patient states she was previously following with the Wound Clinic last year and all of the ulcerations had closed so she stopped going to the clinic around July of last year. She has been compliant with diuretics and Unna boots. However, around December of last year, she began experiencing increased swelling in the lower extremities with some weeping ulcers. Over the last few days, there has been significant increase in the drainage/weeping as well as increased pain, right greater than left. There is also no erythema extending above the right knee. She endorses some non shaking chills but has not taken her temperature. No obvious purulent drainage. She does endorse some worsening dyspnea from baseline reports this has resolved. No wheezing or chest pain or cough. She was seen in the Wound Clinic today recommended she present to the ED for further evaluation of lower extremity cellulitis with recommendation for IV antibiotics. In the ED, vitals stable with chronic tachycardia. No fevers. She has a mild leukocytosis of 11.1. Renal function and electrolyte levels normal except for CO2 34 which is consistent with baseline. CRP 4.84, ESR 83. BNP undetectable. Negative for COVID, flu, RSV. Chest x-ray shows subsegmental atelectasis versus scarring in the left lower lobe. Review of Systems 2 Review of Systems: Yes all other systems are reviewed and are negative [facility] Medical History Hypothyroidism Lymphedema Type 2 diabetes mellitus CVA (cerebral vascular accident) Myocardial ischemia CHARITO on CPAP Thyroid cancer BMI 60.0-69.9, adult Berrios's palsy GERD (gastroesophageal reflux disease) delivery delivered Right knee meniscal tear Morbid obesity POTS (postural orthostatic tachycardia syndrome) Family History Father No problems noted. Mother Heart disease History of hypothyroidism Sister No problems noted. Brother No problems noted. Son No problems noted. Son No problems noted. Son No problems noted. Surgical History S/P cholecystectomy H/O total thyroidectomy S/P right knee arthroscopy Social History Housing: House Alcohol intake: never Patient Tobacco Use Status: Former Tobacco user e-Cigarette/Vaping Use: Never Used Second Hand Smoke Exposure: No Substance Use Type: Marijuana Advance Directives: No Advance Directives Information Provided: Yes Do you have a plan to hurt others: No Plan service: No Current occupational status: disabled Cognitive needs: No Hearing needs: No Vision needs: No Meds Allergies Allergy/AdvReac Type Severity Reaction Status Date / Time tirzepatide [From Mounjaro] Allergy Severe Unknown Verified 07/07/24 14:58 soy Allergy Mild hives Verified 07/07/24 14:58 amoxicillin Allergy Unknown anaphylaxis Verified 07/07/24 14:58 azithromycin Allergy Unknown anaphylaxis Verified 07/07/24 14:58 [Zithromax Z-Chris] Darvocet A500 Allergy Unknown hives Verified 07/07/24 14:58 penicillin V Allergy Unknown anaphylaxis Verified 07/07/24 14:58 Erythromycin Allergy Unknown anaphylaxis Uncoded 07/07/24 14:58 Rabbits Allergy Unknown anaphylaxis Uncoded 07/07/24 14:58 Spanish cheese Allergy Unknown anaphylaxis Uncoded 07/07/24 14:58 Active Medications: Current Medications Vancomycin HCl (Vancomycin/Ns) 2,000 mg in 500 mls @ 250 mls/hr IV ONCE ONE Stop: 07/07/24 19:24 Home Medications ?Medication ?Instructions ?Recorded ?Confirmed ?Last Taken ?Type ibuprofen 400 mg tablet 500 mg PO BID 01/18/20 09/06/23 Unknown History omeprazole 20 mg capsule,delayed 20 mg PO BID 01/18/20 09/06/23 Unknown History release epinephrine 1 mg/mL injection kit 1 mg IM Q20M PRN 02/10/20 09/06/23 Unknown History ([facility]) albuterol sulfate 90 mcg/actuation 2 puff inhalation Q6H PRN 08/20/23 09/06/23 Unknown History aerosol inhaler Physical Exam 2 Vital Signs and Narrative: Vital Signs: Last Vital Signs Temp 97.8 F 07/07/24 14:56 Pulse 101 H 07/07/24 16:58 Resp 20 07/07/24 16:58 BP 104/56 L 07/07/24 16:58 Pulse Ox 99 07/07/24 16:58 O2 Del Method Room Air 07/07/24 16:58 Oxygen Flow Rate 5 07/07/24 14:56 BMI result Body Mass Index 82.9 Constitutional - Awake and Alert, No apparent distress, morbidly obese Eyes - PERRLA, EOMI Cardiovascular - S1S2, RRR, 2+ edema Respiratory - Normal lung expansion, Normal respiratory effort, No respiratory distress, CTA bilaterally Gastrointestinal - NT / ND; +BS; No rebound or guarding Extremities - no calf tenderness bilaterally, no swelling Skin - Warn. Beefy red moist patches in the intertriginous folds. Lymphedema ble- weeping shallow ulcerations to the distal aspect of the bilateral lower legs with moist breakdown of the superficial layers of the skin in the posterior lower legs with copious serous drainage. There is weeping ulcerations of the lateral aspect of the right lower leg with warmth and erythema extending from the R foot above the knee. Photos below though difficult to capture 2/2 habitus Neurological - Alert & oriented x3 Psychological - Appropriate affect RLE x2 Results Labs 07/07/24 15:47 07/07/24 15:47 Labs: Laboratory Results - last 24 hr 07/07/24 15:47 MCV 88.7 MCH 27.9 MCHC 31.4 RDW 15.7 Plt Count 405 H D MPV 8.2 L Immature Gran % (Auto) 2.3 H Neut % (Auto) 64.2 Lymph % (Auto) 18.8 L [place] % (Auto) 7.5 Eos % (Auto) 6.7 H Baso % (Auto) 0.5 Lymph # (Auto) 2.1 [place] # (Auto) 0.8 Eos # (Auto) 0.7 H Baso # (Auto) 0.1 Abs Immat Gran (auto) 0.25 H Absolute Neuts (auto) 7.1 Absolute Nucleated RBC 0.000 Nucleated RBC % (auto) 0.0 ESR 83 H Anion Gap 13 Estim Creat Clear Calc 172.6 Estimated GFR > 60 Random Glucose 115 Lactic Acid 1.2 Calcium 8.8 Total Bilirubin 0.4 AST 39 H ALT 32 H Alkaline Phosphatase 92 C-Reactive Protein 4.84 H B-Natriuretic Peptide < 10 Total Protein 8.0 Albumin 3.9 Beta-Hydroxybutyrate 0.08 Influenza Type A (PCR) NEGATIVE Influenza Type B (PCR) NEGATIVE RSV RNA Qual (PCR) NEGATIVE SARS-CoV-2 RNA (RT-PCR) NEGATIVE Imaging Radiologist's Impressions: Impressions Chest X-Ray 07/07/24 15:05 IMPRESSION: Subsegmental atelectasis versus scarring in the left lower lobe. Electronically signed by: Chris Hernandes MD 07/07/2024 03:42 PM EDT RP Assessment and Plan (1) Cellulitis of lower leg: Status: Acute (2) Lymphedema: Status: Acute Plan 54-year-old female with history of CVA, mi, CHARITO on CPAP, chronic hypoxemic/hypercapnic respiratory failure, CHF, history of thyroid cancer s/p total thyroidectomy, GERD, pots, type 2 diabetes, lymphedema, who is morbidly obese with BMI greater than 82 admitted for further management of acute cellulitis of the right lower extremity Acute cellulitis RLE with background lymphedema/venous ulcers Leukocytosis 11.1. CRP 4.84, ESR 83. Tachycardia is chronic. There is no sepsis at the time of admission 18:41 07/07 IV vancomycin and cefepime (initiated 07/07) Pain management p.r.n. Wound RN consult Hydrocortisone cream and compression wraps to the bilateral lower extremities Follow CBC, cultures Intertriginous candidiasis Nystatin t.i.d. Acute transaminitis Likely in setting of infection Gmu-jxqgzth-dobbhhfjb type 2 diabetes Controlled with most recent A1c 6.1% POC glucose, diabetic diet Sliding scale insulin Hold glipizide Hypothyroidism-postsurgical with history of thyroid cancer Levothyroxine CHARITO/obesity hypoventilation syndrome/chronic hypoxemic hypercapnic respiratory failure Continue home O2, goal 90-92% CPAP bedtime CAD/CVA/CHF No anginal chest pain, clinically no CHF exacerbation Continue p.o. meds Mood disorder Continue home medications GERD PPI Chronic normocytic anemia Baseline Super morbid obesity BMI 82.9, recent 100 lb weight loss. Encouraged ongoing weight loss efforts DVT prophylaxis-Lovenox Full code Patient requires inpatient stay at least 2 midnights for management of acute extensive cellulitis of the right lower extremity affecting greater than >50% of lower extremity which will require IV antibiotics Quality Stroke Does the patient have a stroke diagnosis?: No VTE Prior VTE?: No VTE Risk Level:: Medical - moderate - high VTE Device Contraindication: Treatment Not Indicated VTE Drug Contraindication: N/A - Med Ordered
--- OUTSIDE RECORDS SUMMARY | 2024-07-07 18:28 | XMS_ITS | Encounter Summary ---
Author Organization [facility] Address [address] [place] [address] Care Team Providers Care Orthotic/Prosthetic Clinician Name Role Phone Janessa Langley MD Primary Care Provider UnavailMark Guadarrama MD Primary Care Provider Unav ailable Janessa Langley MD Primary Care Provider Unavaila Layla Juarez MD Primary Care Provider [phone] Amparo Pressley MD Primary Care Provider Un available Isela Roe MD Unavailable [phone] Layla Segal MD Primary Care Provider [phone] [facility], [facility] Primary Care Provider Unavailabl e Encounter Details Date Type Department Care Team Description 01/19/2019 Orders Only Adult Medicine [address] [address] Mark Alfonso MD Papillary thyroid carcinoma (HCC) [...] Mark Alfonso MD ULTRASOUND Performing Organization Address City/State/[facility] Co de Phone Number [facility] [address] [place] [address] documented in this encounter Visit Diagnoses Diagnosis Papillary thyroid carcinoma (HCC) Malignant neoplasm of thyroid gland documented in this encounter Care Teams Orthotic/Prosthetic Clinician Relationship Specialty Start Date End Date Janessa Langley MD PCP - General Internal Medicine 12/02/15 11/03/19 Mark Caraballo MD PCP - General Family Practice 11/04/19 04/13/20 Janessa Langley MD PCP - General Internal Medicine 04/14/20 08/08/20 Layla Segal MD [address] [place] [address] PCP - General Internal Medicine 08/09/20 10/19/20 Amparo Pressley MD [address] [place] [address] PCP - General Internal Medicine 10/20/20 12/12/20 Layla Segal MD [address] [place] [address] PCP - General Internal Medicine 12/13/20 01/07/22 [facility], Pcp [address] [address] PCP - General Internal Medicine 01/08/22 Isela Roe MD [address] [address] Specialist Cardiology 10/28/20 documented as of this encounter
--- OUTSIDE RECORDS SUMMARY | 2024-07-07 18:28 | XMS_ITS | Encounter Summary ---
Author Organization [facility] Address [address] [place] [address] Care Team Providers Care Acute Care Surgeon Name Role Phone Amparo Pressley MD Primary Care Provider Un available Mark Alfonso MD Primary Care Provider Unavail able Janessa Langley MD Primary Care Provider Unavaila Mark Valera MD Primary Care Provider Unavail able Janessa Langley MD Primary Care Provider Unavaila Mark Mayo MD Primary Care Provider Unav ailable Janessa Langley MD Primary Care Provider Unavaila Layla Juraez MD Primary Care Provider [phone] Amparo Pressley MD Primary Care Provider Un available Isela Roe MD Unavailable [phone] Layla Segal MD Primary Care Provider [phone] [facility], Pcp Primary Care Provider Unavailabl e Encounter Details Date Type Department Care Team Description 08/30/2010 Tv Production Assistant Report Medical Records [address] [place] [address] Ilan Escobedo Social History Tobacco Use Types [...] on filedocumented in this encounter Care Teams Acute Care Surgeon Relationship Specialty Start Date End Date Amparo [...] Medicine 04/14/20 08/08/20 Layla Segal MD [address] [place] [address] PCP - General Internal Medicine 08/09/20 10/19/20 Amparo Pressley MD PCP - General Internal Medicine 10/20/20 Layla Segal MD [address] [place] [address] PCP - General Internal Medicine 12/13/20 01/07/22 [facility], Pcp [address] [address] PCP - General Internal Medicine 01/08/22 Isela Roe MD [address] [address] Specialist Cardiology 10/28/20 documented as of this encounter
--- OUTSIDE RECORDS SUMMARY | 2024-07-07 18:28 | XMS_ITS | Encounter Summary ---
Author Organization [facility] Address [address] [place] [address] Care Team Providers Care Scout Executive Name Role Phone Mark Alfonso MD Primary Care Provider Unavail able Janessa Langley MD Primary Care Provider Unavaila Mark Valera MD Primary Care Provider Unavail able Janessa Langley MD Primary Care Provider Unavaila Mark Mayo MD Primary Care Provider Unav ailable Janessa Langley MD Primary Care Provider Unavaila Layla Juarez MD Primary Care Provider [phone] Amparo Pressley MD Primary Care Provider Un available Isela Roe MD Unavailable [phone] Layla Segal MD Primary Care Provider [phone] [facility], Pcp Primary Care Provider Unavailabl e Encounter Details Date Type Department Care Team Description 06/09/2012 Hogshead Inspector Report Medical Records [address] [place] [address] Chris Gerber MD Social History Tobacco Use [...] on filedocumented in this encounter Care Teams Scout Executive Relationship Specialty Start Date End Date Mark [...] 08/08/20 Layla Segal MD [address] [place] [address] PCP - General Internal Medicine 08/09/20 10/19/20 Amparo Pressley MD [address] [place] [address] PCP - General Internal Medicine 10/20/20 12/12/20 Layla Segal MD [address] [place] [address] PCP - General Internal Medicine 12/13/20 01/07/22 [facility], Pcp [address] [address] PCP - General Internal Medicine 01/08/22 Isela Roe MD [address] [address] Specialist Cardiology 10/28/20 documented as of this encounter
--- OUTSIDE RECORDS SUMMARY | 2024-07-07 18:28 | XMS_ITS | Encounter Summary ---
Author Organization [facility] Address [address] [place] [address] Care Team Providers Care Spinner Iron Name Role Phone Janessa Langley MD Primary Care Provider UnavailMark Guadarrama MD Primary Care Provider Unav ailable Janessa Langley MD Primary Care Provider Unavaila Layla Juarez MD Primary Care Provider [phone] Amparo Pressley MD Primary Care Provider Un available Isela Roe MD Unavailable [phone] Layla Segal MD Primary Care Provider [phone] [facility] Primary Care Provider Unavailabl e Reason for Visit * Reason Onset Date Comments Testing 03/21/2017 Encounter Details Date Type Department Care Team Description 03/21/2017 Telephone Medicine/Pediatrics - [address] [id number] Uma Martinez PA-C Testing Social History Tobacco [...] on filedocumented in this encounter Care Teams Spinner Iron Relationship Specialty Start Date End Date Janessa Langley MD PCP - General Internal Medicine 12/02/15 11/03/19 Mark Caraballo MD PCP - General Family Practice 11/04/19 04/13/20 Janessa Langley MD PCP - General Internal Medicine 04/14/20 08/08/20 Layla Segal MD [address] [place] [address] PCP - General Internal Medicine 08/09/20 10/19/20 Amparo Pressley MD [address] [place] [address] PCP - General Internal Medicine 10/20/20 12/12/20 Layla Segal MD [address] [place] [address] PCP - General Internal Medicine 12/13/20 01/07/22 [facility], Pcp [address] [address] PCP - General Internal Medicine 01/08/22 Isela Roe MD 300 [facility] [address] [place] [address] Specialist Cardiology 10/28/20 documented as of this encounter
--- OUTSIDE RECORDS SUMMARY | 2024-07-07 18:28 | XMS_ITS | Encounter Summary ---
Author Organization [facility] Address [address] [place] [address] Care Team Providers Care Flap Curer Name Role Phone Amparo Pressley MD Primary Care Provider Un available Mark Alfonso MD Primary Care Provider Unavail able Janessa Langley MD Primary Care Provider Unavaila Mark Valera MD Primary Care Provider Unavail able Janessa Langley MD Primary Care Provider Unavaila Mark Mayo MD Primary Care Provider Unav ailable Janessa Langley MD Primary Care Provider Unavaila Layla Juarez MD Primary Care Provider [phone] Amparo Pressley MD Primary Care Provider Un available Isela Roe MD Unavailable [phone] Layla Segal MD Primary Care Provider [phone] [facility], Pcp Primary Care Provider Unavailabl e Encounter Details Date Type Department Care Team Description 09/20/2010 Hospital Medical Records [address] [place] [address] Ilan Escobedo Social History Tobacco Use Types [...] on filedocumented in this encounter Care Teams Flap Curer Relationship Specialty Start Date End Date Amparo [...] Internal Medicine 04/14/20 08/08/20 Layla Segal MD [address] [place] [address] PCP - General Internal Medicine 08/09/20 10/19/20 Amparo Pressley MD PCP - General Internal Medicine 10/20/20 Layla Segal MD [address] [place] [address] PCP - General Internal Medicine 12/13/20 01/07/22 [facility], Pcp [address] [address] PCP - General Internal Medicine 01/08/22 Isela Roe MD [address] [address] Specialist Cardiology 10/28/20 documented as of this encounter
--- OUTSIDE RECORDS SUMMARY | 2024-07-07 18:28 | XMS_ITS | Encounter Summary ---
Author Organization [facility] Address [address] [place] [address] Care Team Providers Care Claim Benefit Specialist Name Role Phone Janessa Langley MD Primary Care Provider UnavailMark Guadarrama MD Primary Care Provider Unav ailable Janessa Langley MD Primary Care Provider Unavaila Layla Juarez MD Primary Care Provider [phone] Amparo Pressley MD Primary Care Provider Un available Isela Roe MD Unavailable [phone] Layla Segal MD Primary Care Provider [phone] [facility], [facility] Primary Care Provider Unavailabl e Encounter Details Date Type Department Care Team Description 12/06/2018 [facility] Medical Records [address] [place] [address] Hernan Flores Social History Tobacco Use Types [...] on filedocumented in this encounter Care Teams Claim Benefit Specialist Relationship Specialty Start Date End Date Janessa Langley MD PCP - General Internal Medicine 12/02/15 11/03/19 Mark Caraballo MD PCP - General Family Practice 11/04/19 04/13/20 Janessa Langley MD PCP - General Internal Medicine 04/14/20 08/08/20 Layla Segal MD [address] [place] [address] PCP - General Internal Medicine 08/09/20 10/19/20 Amparo Pressley MD [address] [place] [address] PCP - General Internal Medicine 10/20/20 12/12/20 Layla Segal MD [address] [place] [address] PCP - General Internal Medicine 12/13/20 01/07/22 [facility], Pcp [address] [address] PCP - General Internal Medicine 01/08/22 Isela Roe MD [address] [address] Specialist Cardiology 10/28/20 documented as of this encounter
--- OUTSIDE RECORDS SUMMARY | 2024-07-07 18:28 | XMS_ITS | Encounter Summary ---
Author Organization [facility] Address [address] [place] [address] Care Team Providers Care Tailer Off Name Role Phone Amparo Pressley MD Primary Care Provider Un available Mark Alfonso MD Primary Care Provider Unavail able Janessa Langley MD Primary Care Provider Unavaila Mark Valera MD Primary Care Provider Unavail able Janessa Langley MD Primary Care Provider Unavaila Mark Mayo MD Primary Care Provider Unav ailable Janessa Langley MD Primary Care Provider Unavaila Layla Juarez MD Primary Care Provider [phone] Amparo Pressley MD Primary Care Provider Un available Isela Roe MD Unavailable [phone] Layla Segal MD Primary Care Provider [phone] [facility], Pcp Primary Care Provider Unavailabl e Encounter Details Date Type Department Care Team Description 02/13/2008 [facility] Medical Records [address] [place] [address] Regan Brown V. Social History Tobacco Use [...] on filedocumented in this encounter Care Teams Tailer Off Relationship Specialty Start Date End Date Amparo [...] Medicine 04/14/20 08/08/20 Layla Segal MD [address] [place] [address] PCP - General Internal Medicine 08/09/20 10/19/20 Amparo Pressley MD PCP - General Internal Medicine 10/20/20 Layla Segal MD [address] [place] [address] PCP - General Internal Medicine 12/13/20 01/07/22 [facility], Pcp [address] [address] PCP - General Internal Medicine 01/08/22 Isela Roe MD 300 [facility] [address] [place] [address] Specialist Cardiology 10/28/20 documented as of this encounter
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
--- OUTSIDE RECORDS SUMMARY | 2024-07-07 18:28 | XMS_ITS | Encounter Summary ---
Author Organization [facility] Address [address] [place] [address] Care Team Providers Care Heating Systems Installer Name Role Phone Mark Alfonso MD Primary Care Provider Unavail able Janessa Langley MD Primary Care Provider Unavaila Mark Valera MD Primary Care Provider Unavail able Janessa Langley MD Primary Care Provider Unavaila Mark Mayo MD Primary Care Provider Unav ailable Janessa Langley MD Primary Care Provider Unavaila Layla Juarez MD Primary Care Provider [phone] Amparo Pressley MD Primary Care Provider Un available Isela Roe MD Unavailable [phone] Layla Segal MD Primary Care Provider [phone] [facility], [facility] Primary Care Provider Unavailabl e Encounter Details Date Type Department Care Team Description 06/01/2013 Switch Operator Report Medical Records [address] [place] [address] Sherry Panda Social History Tobacco Use Types [...] on filedocumented in this encounter Care Teams Heating Systems Installer Relationship Specialty Start Date End Date Mark [...] Medicine 04/14/20 08/08/20 Layla Segal MD [address] [place] [address] PCP - General Internal Medicine 08/09/20 10/19/20 Amparo Pressley MD [address] [place] [address] PCP - General Internal Medicine 10/20/20 12/12/20 Layla Segal MD [address] [place] [address] PCP - General Internal Medicine 12/13/20 01/07/22 [facility], Pcp [address] [address] PCP - General Internal Medicine 01/08/22 Isela Roe MD [address] [address] Specialist Cardiology 10/28/20 documented as of this encounter
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
--- OUTSIDE RECORDS SUMMARY | 2024-07-07 18:28 | XMS_ITS | Encounter Summary ---
Author Organization [facility] Address [address] [place] [address] Care Team Providers Care International Specialist Name Role Phone Janessa Langley MD Primary Care Provider Mark Thomas MD Primary Care Provider Unav ailable Janessa Langley MD Primary Care Provider Unavaila Layla Juarez MD Primary Care Provider [phone] Amparo Pressley MD Primary Care Provider Un available Isela Roe MD Unavailable [phone] Layla Segal MD Primary Care Provider [phone] [facility], [facility] Primary Care Provider Unavailabl e Reason for Referral * EXTERNAL (Routine) - Authorized/Booked Specialty Diagnoses / Procedures Referred By Contlizet t Referred To Contact Neurosurgery Procedures REFERRAL TO NEUROSURGERY Janessa Langley MD [address] [place] [address] Richelle Salguero MD 175 [facility] [address] [place] [address] Referral ID Status Reason Start Date Expiration Date V isits Requested Visits Authorized SEE NOTE Authorized/B ooked 03/19/2016 06/17/2016 1 1 Reason for Visit * Reason Onset Date Comments Atg Architect Feedback 03/19/2016 neurosurgery Encounter Details Date Type Department Care Team Description 03/19/2016 Telephone Medicine/Pediatrics - [address] [address] Janessa Langley MD Atg Architect Feedback (neurosurgery) Social History Tobacco Use Types [...] referral for patient to see neurosurgeon, at [facility]. Unfortunately, their office does not accept this patient's health insurance. ([facility]). Patient was notified and she agreed to [...] on filedocumented in this encounter Care Teams International Specialist Relationship Specialty Start Date End Date Janessa Langley MD PCP - General Internal Medicine 12/02/15 11/03/19 Mark Caraballo MD PCP - General Family Practice 11/04/19 04/13/20 Janessa Langley MD PCP - General Internal Medicine 04/14/20 08/08/20 Layla Segal MD [address] [place] [address] PCP - General Internal Medicine 08/09/20 10/19/20 Amprao Pressley MD [address] [place] [address] PCP - General Internal Medicine 10/20/20 12/12/20 Layla Segal MD [address] [place] [address] PCP - General Internal Medicine 12/13/20 01/07/22 [facility], Pcp [address] [address] PCP - General Internal Medicine 01/08/22 Isela Roe MD 300 [facility] [address] [place] [address] Specialist Cardiology 10/28/20 documented as of this encounter
--- OUTSIDE RECORDS SUMMARY | 2024-07-07 18:28 | XMS_ITS | Encounter Summary ---
Author Organization [facility] Address [address] [place] [address] Care Team Providers Care Answering Service Agent Name Role Phone Janessa Langley MD Primary Care Provider Mark Thomas MD Primary Care Provider Unav ailable Janessa Langley MD Primary Care Provider Unavaila Layla Juarez MD Primary Care Provider [phone] Amparo Pressley MD Primary Care Provider Un available Isela Roe MD Unavailable [phone] Layla Segal MD Primary Care Provider [phone] [facility] Primary Care Provider Unavailabl e Reason for Visit * Reason Onset Date Comments Medication 03/15/2016 Prior Authorization 03/15/2016 Encounter Details Date Type Department Care Team Description 03/15/2016 Telephone Medicine/Pediatrics - [address] [address] Janessa Langley MD Medication; Prior Authorization Social [...] EST Dx endometriosis Prior auth faxed to [facility] for lupron * Telephone Encounter - Mindy Tam - 03/15/2016 2:28 PM EST Fax rec'd from [facility] Stating they contacted patients insurance company to check status of the prior auth for lupron depot 3.75 mg kit. They have not yet rec'd a PAform from our office. (fax rec'd [facility] 140 [facility] 231 03/15/2016 [facility]) documented in this encounter Plan of Treatment Not on file documented as of this encounter Visit Diagnoses Not on filedocumented in this encounter Care Teams Answering Service Agent Relationship Specialty Start Date End Date Janessa Langley MD PCP - General Internal Medicine 12/02/15 11/03/19 Mark Caraballo MD PCP - General Family Practice 11/04/19 04/13/20 Janessa Langley MD PCP - General Internal Medicine 04/14/20 08/08/20 Layla Segal MD [address] [place] [address] PCP - General Internal Medicine 08/09/20 10/19/20 Amparo Pressley MD [address] [place] [address] PCP - General Internal Medicine 10/20/20 12/12/20 Layla Segal MD [address] [place] [address] PCP - General Internal Medicine 12/13/20 01/07/22 [facility], Pcp [address] [address] PCP - General Internal Medicine 01/08/22 Isela Roe MD [address] [address] Specialist Cardiology 10/28/20 documented as of this encounter
--- OUTSIDE RECORDS SUMMARY | 2024-07-07 18:28 | XMS_ITS | Encounter Summary ---
Author Organization [facility] Address [address] [place] [address] Care Team Providers Care Blow Moulding Machine Operator Name Role Phone Janessa Langley MD Primary Care Provider UnavailMark Guadarrama MD Primary Care Provider Unav ailable Janessa Langley MD Primary Care Provider Unavaila Layla Juarez MD Primary Care Provider [phone] Amparo Pressley MD Primary Care Provider Un available Isela Roe MD Unavailable [phone] Layla Segal MD Primary Care Provider [phone] [facility] Primary Care Provider Unavailabl e Reason for Visit * Reason Onset Date Comments Advice 01/01/2019 Encounter Details Date Type Department Care Team Description 01/01/2019 Telephone General Surgery - [place] 175 [facility] [address] [place] [address] Jessie Nicholas MS,RDN,LDN [address] [address] Advice Social History Tobacco Use Types Packs/Day Years Used Date Smoking Tobacco: Former Cigarettes 0.3 26 0 04/01/1989 - 05/02/2015 Smokeless Tobacco: Never Alcohol Use Standard Drinks/Week Comments No 0 (1 standard drink = 0.6 oz pur e alcohol) Sex Assigned at Date Recorded Not on file documented as of this encounter Miscellaneous Notes * Telephone Encounter - Jessie Nicholas MS,SHELLEY,KAI - 01/01/2019 3:[address] returned pt's call and pt provided update on weight loss and progress with nutrition goals documented in this encounter Plan of Treatment Not on file documented as of this encounter Visit Diagnoses Not on filedocumented in this encounter Care Teams Blow Moulding Machine Operator Relationship Specialty Start Date End Date Janessa Langley MD PCP - General Internal Medicine 12/02/15 11/03/19 Mark Caraballo MD PCP - General Family Practice 11/04/19 04/13/20 Janessa Langley MD PCP - General Internal Medicine 04/14/20 08/08/20 Layla Segal MD [address] [place] [address] PCP - General Internal Medicine 08/09/20 10/19/20 Amparo Pressley MD [address] [place] [address] PCP - General Internal Medicine 10/20/20 12/12/20 Layla Segal MD [address] [place] [address] PCP - General Internal Medicine 12/13/20 01/07/22 [facility], Pcp [address] [address] PCP - General Internal Medicine 01/08/22 Isela Roe MD [address] [address] Specialist Cardiology 10/28/20 documented as of this encounter
--- OUTSIDE RECORDS SUMMARY | 2024-07-07 18:28 | XMS_ITS | Encounter Summary ---
Author Organization [facility] Address [address] [place] [address] Care Team Providers Care Rivet Catcher Name Role Phone Mark Alfonso MD Primary Care Provider Unavail able Janessa Langley MD Primary Care Provider Unavaila Mark Valera MD Primary Care Provider Unavail able Janessa Langley MD Primary Care Provider Unavaila Mark Mayo MD Primary Care Provider Unav ailable Janessa Langley MD Primary Care Provider Unavaila Layla Juarez MD Primary Care Provider [phone] Amparo Pressley MD Primary Care Provider Un available Isela Roe MD Unavailable [phone] Layla Segal MD Primary Care Provider [phone] [facility], Pcp Primary Care Provider Unavailabl e Encounter Details Date Type Department Care Team Description 07/25/2015 Numberer And Wirer Report Medical Records [address] [place] [address] Rickey Villalpando MD Social History Tobacco Use [...] on filedocumented in this encounter Care Teams Rivet Catcher Relationship Specialty Start Date End Date Mark [...] Medicine 04/14/20 08/08/20 Layla Segal MD [address] [place] [address] PCP - General Internal Medicine 08/09/20 10/19/20 Amparo Pressley MD [address] [place] [address] PCP - General Internal Medicine 10/20/20 12/12/20 Layla Segal MD [address] [place] [address] PCP - General Internal Medicine 12/13/20 01/07/22 [facility], Pcp [address] [address] PCP - General Internal Medicine 01/08/22 Isela Roe MD [address] [address] Specialist Cardiology 10/28/20 documented as of this encounter
--- OUTSIDE RECORDS SUMMARY | 2024-07-07 18:28 | XMS_ITS | Encounter Summary ---
Author Organization [facility] Address [address] [place] [address] Care Team Providers Care Combine Operator Name Role Phone Janessa Langley MD Primary Care Provider Mark Thomas MD Primary Care Provider Unav ailable Janessa Langley MD Primary Care Provider Unavaila Layla Juarez MD Primary Care Provider [phone] Amparo Pressley MD Primary Care Provider Un available Isela Roe MD Unavailable [phone] Layla Segal MD Primary Care Provider [phone] [facility] Primary Care Provider Unavailabl e Encounter Details Date Type Department Care Team Description 12/26/2018 Kindergarten Teacher Report Medical Records [address] [place] [address] Chris Gill MD Social History Tobacco Use [...] on filedocumented in this encounter Care Teams Combine Operator Relationship Specialty Start Date End Date Janessa Langley MD PCP - General Internal Medicine 12/02/15 11/03/19 Mark Caraballo MD PCP - General Family Practice 11/04/19 04/13/20 Janessa Langley MD PCP - General Internal Medicine 04/14/20 08/08/20 Layla Segal MD [address] [place] [address] PCP - General Internal Medicine 08/09/20 10/19/20 Amparo Pressley MD [address] [place] [address] PCP - General Internal Medicine 10/20/20 12/12/20 Layla Segal MD [address] [place] [address] PCP - General Internal Medicine 12/13/20 01/07/22 [facility], Pcp [address] [address] PCP - General Internal Medicine 01/08/22 Isela Roe MD 300 [facility] 154 [place] [address] Specialist Cardiology 10/28/20 documented as of this encounter
--- OUTSIDE RECORDS SUMMARY | 2024-07-07 18:28 | XMS_ITS | Encounter Summary ---
Author Organization [facility] Address [address] [place] [address] Care Team Providers Care Machine Crater Name Role Phone Janessa Lagnley MD Primary Care Provider Mark Thomas MD Primary Care Provider Unav ailable Janessa Langley MD Primary Care Provider Unavaila Layla Juarez MD Primary Care Provider [phone] Amparo Pressley MD Primary Care Provider Un available Isela Roe MD Unavailable [phone] Layla Segal MD Primary Care Provider [phone] [facility] Primary Care Provider Unavailabl e Encounter Details Date Type Department Care Team Description 04/25/2017 Cable Engineer Report Medical Records [address] [place] [address] Chris Tavares Social History Tobacco Use Types [...] filedocumented in this encounter Care Teams Machine Crater Relationship Specialty Start Date End Date Janessa Langley MD PCP - General Internal Medicine 12/02/15 11/03/19 Mark Caraballo MD PCP - General Family Practice 11/04/19 04/13/20 Janessa Langley MD PCP - General Internal Medicine 04/14/20 08/08/20 Layla Segal MD [address] [place] [address] PCP - General Internal Medicine 08/09/20 10/19/20 Amparo Pressley MD [address] [place] [address] PCP - General Internal Medicine 10/20/20 12/12/20 Layla Segal MD [address] [place] [address] PCP - General Internal Medicine 12/13/20 01/07/22 [facility], Pcp [address] [address] PCP - General Internal Medicine 01/08/22 Isela Roe MD 300 [facility] [address] [place] [address] Specialist Cardiology 10/28/20 documented as of this encounter
--- OUTSIDE RECORDS SUMMARY | 2024-07-07 18:28 | XMS_ITS | Encounter Summary ---
Author Organization [facility] Address [address] [place] [address] Care Team Providers Care District Leader Name Role Phone Amparo Pressley MD Primary Care Provider Un available Isela Roe MD Unavailable [phone] Layla Segal MD Primary Care Provider [phone] [facility], [facility] Primary Care Provider Unavailabl e Encounter Details Date Type Department Care Team Description 12/09/2020 Telephone Gastroenterology - [address] [place] [address] Librado Anderson PA-C Social History Tobacco Use Types Packs/Day Years Used Date Smoking Tobacco: Former Cigarettes 0.3 26 0 04/01/1989 - 05/02/2015 Smokeless Tobacco: Never Alcohol Use Standard Drinks/Week Comments No 0 (1 standard drink = 0.6 oz pur e alcohol) Sex Assigned at Date Recorded Not on file documented as of this encounter Miscellaneous Notes * Telephone Encounter - Lucie Serna M.A. - 12/09/2020 3:34 PM EDT Reached the patient and asked her if she is interested in performing barium swallow. She does not want to do it right now. Kristen will change her mind if she decides to complete the procedurew documented in this encounter Plan of Treatment Not on file documented as of this encounter Visit Diagnoses Not on filedocumented in this encounter Care Teams District Leader Relationship Specialty Start Date End Date Amparo Pressley MD PCP - General Internal Medicine 10/20/20 Layla Segal MD [address] [place] [address] PCP - General Internal Medicine 12/13/20 01/07/[address] [address] PCP - General Internal Medicine 01/08/22 Isela Roe MD [address] [place] [address] 154 [place] [address] Specialist Cardiology 10/28/20 documented as of this encounter
--- OUTSIDE RECORDS SUMMARY | 2024-07-07 18:28 | XMS_ITS | Encounter Summary ---
Author Organization [facility] Address [address] [place] [address] Care Team Providers Care Spreader Box Operator Name Role Phone Mark Alfonso MD Primary Care Provider Unavail able Janessa Langley MD Primary Care Provider Unavaila Mark Valera MD Primary Care Provider Unavail able Janessa Langley MD Primary Care Provider Unavaila Mark Mayo MD Primary Care Provider Unav ailable Janessa Langley MD Primary Care Provider Unavaila Layla Juarez MD Primary Care Provider [phone] Amparo Pressley MD Primary Care Provider Un available Isela Roe MD Unavailable [phone] Layla Segal MD Primary Care Provider [phone] [facility], Pcp Primary Care Provider Unavailabl e Encounter Details Date Type Department Care Team Description 08/02/2015 Refill Adult Medicine [address] [phone] Roni Toscano MD [address] [place] [address] Social History Tobacco Use Types Packs/Day [...] MG tablet [Roni Toscano MD] Preferred pharmacy: [facility] [address] [place] [address] Comment: I need refills of both of these please Medication renewals requested in this message routed to other providers: albuterol (PROVENTIL) (2.5 MG/3ML) 0.083% nebulizer solution [Mark Alfonso MD] documented in this encounter Plan of Treatment Not on file documented as of this encounter Visit Diagnoses Not on filedocumented in this encounter Care Teams Spreader Box Operator Relationship Specialty Start Date End Date [...] Medicine 04/14/20 08/08/20 Layla Segal MD [address] [place] [address] PCP - General Internal Medicine 08/09/20 10/19/20 Amparo Pressley MD [address] [place] [address] PCP - General Internal Medicine 10/20/20 12/12/20 Layla Segal MD [address] [place] [address] PCP - General Internal Medicine 12/13/20 01/07/22 [facility] Pcp [address] [place] [address] PCP - General Internal Medicine 01/08/22 Isela Roe MD [address] [facility] 154 [place] [address] Specialist Cardiology 10/28/20 documented as of this encounter
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
--- OUTSIDE RECORDS SUMMARY | 2024-07-07 18:28 | XMS_ITS | Encounter Summary ---
Author Organization [facility] Address [address] [place] [address] Care Team Providers Care Tobacco Hanger Name Role Phone Isela Roe MD Unavailable [phone] Layla Segal MD Primary Care Provider [phone] [facility], Pcp Primary Care Provider Unavailabl e Reason for Visit * Reason Onset Date Comments refill request 04/13/2021 Encounter Details Date Type Department Care Team Description 04/13/2021 Refill Pulmonology - [place] 175 [facility] [address] [place] [address] Morales Richards MD 175 [place] [phone] refill request Social History Tobacco Use Types [...] on filedocumented in this encounter Care Teams Tobacco Hanger Relationship Specialty Start Date End Date Layla Segal MD [address] [place] [address] PCP - General Internal Medicine 12/13/20 01/07/22 [facility], Pcp [address] [place] [address] PCP - General Internal Medicine 01/08/22 Isela Roe MD 300 [place] [address] Specialist Cardiology 10/28/20 documented as of this encounter
--- OUTSIDE RECORDS SUMMARY | 2024-07-07 18:28 | XMS_ITS | Encounter Summary ---
Author Organization [facility] Address [address] [place] [address] Care Team Providers Care Emergency Room Nurse Name Role Phone Mark Alfonso MD Primary Care Provider Unavail able Janessa Langley MD Primary Care Provider Unavaila Mark Valera MD Primary Care Provider Unavail able Janessa Langley MD Primary Care Provider Unavaila Mark Mayo MD Primary Care Provider Unav ailable Janessa Langley MD Primary Care Provider Unavaila Layla Juarez MD Primary Care Provider [phone] Amparo Pressley MD Primary Care Provider Un available Isela Roe MD Unavailable [phone] Layla Segal MD Primary Care Provider [phone] [facility], Pcp Primary Care Provider Unavailabl e Encounter Details Date Type Department Care Team Description 08/02/2015 Refill Adult Medicine [address] [address] Mark Alfonso MD Social History Tobacco Use [...] on filedocumented in this encounter Care Teams Emergency Room Nurse Relationship Specialty Start Date End Date Mark [...] Medicine 04/14/20 08/08/20 Layla Segal MD [address] [place] [address] PCP - General Internal Medicine 08/09/20 10/19/20 Amparo Pressley MD [address] [place] [address] PCP - General Internal Medicine 10/20/20 12/12/20 Layla Segal MD [address] [place] [address] PCP - General Internal Medicine 12/13/20 01/07/22 [facility], Pcp [address] [address] PCP - General Internal Medicine 01/08/22 Isela Roe MD 300 [facility] [address] [place] [address] Specialist Cardiology 10/28/20 documented as of this encounter
--- OUTSIDE RECORDS SUMMARY | 2024-07-07 18:28 | XMS_ITS | Encounter Summary ---
Author Organization [facility] Address [address] [place] [address] Care Team Providers Care Sagger Soak Name Role Phone Mark Alfonso MD Primary Care Provider Unavail able Janessa Langley MD Primary Care Provider Unavaila Mark Valera MD Primary Care Provider Unavail able Janessa Langley MD Primary Care Provider Unavaila Mark Mayo MD Primary Care Provider Unav ailable Janessa Langley MD Primary Care Provider Unavaila Layla Juarez MD Primary Care Provider [phone] Amparo Pressley MD Primary Care Provider Un available Isela Roe MD Unavailable [phone] Layla Segal MD Primary Care Provider [phone] [facility], Pcp Primary Care Provider Unavailabl e Encounter Details Date Type Department Care Team Description 07/25/2015 V Belt Skiver Report Medical Records [address] [place] [address] Rickey Villalpando MD Social History Tobacco Use [...] on filedocumented in this encounter Care Teams Sagger Soak Relationship Specialty Start Date End Date Mark lAfonso MD PCP - General Internal Medicine 06/09/12 09/06/15 Janessa Langley MD PCP - General Internal Medicine 09/07/15 09/08/15 Mark Alfonso MD PCP - General Internal Medicine 09/09/15 12/01/15 Janessa Langley MD PCP - General Internal Medicine 12/02/15 11/03/19 Mark Caraballo MD PCP - General Family Practice 11/04/19 04/13/20 Janessa Langley MD PCP - General Internal Medicine 04/14/20 08/08/20 Layla Segal MD [address] [place] [address] PCP - General Internal Medicine 08/09/20 10/19/20 Amparo Pressley MD [address] [place] [address] PCP - General Internal Medicine 10/20/20 12/12/20 Layla Segal MD [address] [place] [address] PCP - General Internal Medicine 12/13/20 01/07/22 [facility], Pcp [address] [address] PCP - General Internal Medicine 01/08/22 Isela Roe MD [address] [address] Specialist Cardiology 10/28/20 documented as of this encounter
--- OUTSIDE RECORDS SUMMARY | 2024-07-07 18:28 | XMS_ITS | Encounter Summary ---
Author Organization [facility] Address [address] [place] [address] Care Team Providers Care Nib Assembler Name Role Phone Mark Alfonso MD Primary Care Provider Unavail able Janessa Langley MD Primary Care Provider Unavaila Mark Valera MD Primary Care Provider Unavail able Janessa Langley MD Primary Care Provider Unavaila Mark Mayo MD Primary Care Provider Unav ailable Janessa Langley MD Primary Care Provider Unavaila Layla Juarez MD Primary Care Provider [phone] Amparo Pressley MD Primary Care Provider Un available Isela Roe MD Unavailable [phone] Layla Segal MD Primary Care Provider [phone] [facility], Pcp Primary Care Provider Unavailabl e Encounter Details Date Type Department Care Team Description 06/13/2015 Pt. Non Urgent Medic al Question Physiatry - [place] [address] [place] [address] Christopher Wong DO Social History Tobacco Use Types Packs/Day Years Used Date Smoking Tobacco: Former Cigarettes 0.3 Q uit: 03/01/2011 Smokeless Tobacco: Never Alcohol Use Standard Drinks/Week Comments No 0 (1 standard drink = 0.6 oz pur e alcohol) Sex Assigned at Date Recorded Not on file documented as of this encounter Progress Notes * Saba Bull M.A. - 06/13/2015 10:19 AM EDTFrom: Kristen Bui To: Christopher DO Judith Sent: 06/13/2015 10:12 AM EDT Subject: MRI lower spine results Hi MRI of my lower spine results are avaliable, can you please review them and let me know where orwhat I can do . Thank you Kristen Bui documented in this encounter Plan of Treatment Not on file documented as of this encounter Visit Diagnoses Not on filedocumented in this encounter Care Teams Nib Assembler Relationship Specialty Start Date End Date Mark Alfonso MD PCP - General Internal Medicine 06/09/12 09/06/15 Jaenssa Langley MD PCP - General Internal Medicine 09/07/15 09/08/15 Mark Alfonso MD PCP - General Internal Medicine 09/09/15 12/01/15 Janessa Langley MD PCP - General Internal Medicine 12/02/15 11/03/19 Mark Caraballo MD PCP - General Family Practice 11/04/19 04/13/20 Janessa Langley MD PCP - General Internal Medicine 04/14/20 08/08/20 Layla Segal MD [address] [place] [address] PCP - General Internal Medicine 08/09/20 10/19/20 Amparo Pressley MD [address] [place] [address] PCP - General Internal Medicine 10/20/20 12/12/20 Layla Segal MD [address] [place] [address] PCP - General Internal Medicine 12/13/20 01/07/22 [facility], Pcp [address] [address] PCP - General Internal Medicine 01/08/22 Isela Roe MD [address] [address] Specialist Cardiology 10/28/20 documented as of this encounter
--- OUTSIDE RECORDS SUMMARY | 2024-07-07 18:28 | XMS_ITS | Encounter Summary ---
Author Organization [facility] Address [address] [place] [address] Care Team Providers Care Binder Chainstitch Name Role Phone Amparo Pressley MD Primary Care Provider Un available Mark Alfonso MD Primary Care Provider Unavail able Janessa Langley MD Primary Care Provider Unavaila Mark Valera MD Primary Care Provider Unavail able Janessa Langley MD Primary Care Provider Unavaila Mark Mayo MD Primary Care Provider Unav ailable Janessa Langley MD Primary Care Provider Unavaila Layla Juarez MD Primary Care Provider [phone] Amparo Pressley MD Primary Care Provider Un available Isela Roe MD Unavailable [phone] Layla Segal MD Primary Care Provider [phone] [facility], Pcp Primary Care Provider Unavailabl e Encounter Details Date Type Department Care Team Description 07/11/2010 Stacking Machine Operator Report Medical Records [address] [place] [address] Lee Mackey MD Social History Tobacco Use [...] on filedocumented in this encounter Care Teams Binder Chainstitch Relationship Specialty Start Date End Date Amparo [...] Medicine 04/14/20 08/08/20 Layla Segal MD [address] [place] [address] PCP - General Internal Medicine 08/09/20 10/19/20 Amparo Pressley MD PCP - General Internal Medicine 10/20/20 Layla Segal MD [address] [place] [address] PCP - General Internal Medicine 12/13/20 01/07/22 [facility], Pcp [address] [address] PCP - General Internal Medicine 01/08/22 Isela Roe MD [address] [address] Specialist Cardiology 10/28/20 documented as of this encounter
--- OUTSIDE RECORDS SUMMARY | 2024-07-07 18:28 | XMS_ITS | Encounter Summary ---
Author Organization [facility] Address [address] [place] [address] Care Team Providers Care Mud Mixer Name Role Phone Janessa Langley MD Primary Care Provider UnavailMark Guadarrama MD Primary Care Provider Unav ailable Janessa Langley MD Primary Care Provider Unavaila Layla Juarez MD Primary Care Provider [phone] Amparo Pressley MD Primary Care Provider Un available Isela Roe MD Unavailable [phone] Layla Segal MD Primary Care Provider [phone] [facility] Primary Care Provider Unavailabl e Encounter Details Date Type Department Care Team Description 04/19/2017 [facility] Medical Records [address] [place] [address] Mackenzie Hyatt PA-C Social History Tobacco Use [...] on filedocumented in this encounter Care Teams Mud Mixer Relationship Specialty Start Date End Date Janessa Langley MD PCP - General Internal Medicine 12/02/15 11/03/19 Mark Caraballo MD PCP - General Family Practice 11/04/19 04/13/20 Janessa Langley MD PCP - General Internal Medicine 04/14/20 08/08/20 Layla Segal MD [address] [place] [address] PCP - General Internal Medicine 08/09/20 10/19/20 Amparo Pressley MD [address] [place] [address] PCP - General Internal Medicine 10/20/20 12/12/20 Layla Segal MD [address] [place] [address] PCP - General Internal Medicine 12/13/20 01/07/22 [facility], Pcp [address] [address] PCP - General Internal Medicine 01/08/22 Isela Roe MD 300 [facility] [address] [place] [address] Specialist Cardiology 10/28/20 documented as of this encounter
--- OUTSIDE RECORDS SUMMARY | 2024-07-07 18:28 | XMS_ITS | Encounter Summary ---
Author Organization [facility] Address [address] [place] [address] Care Team Providers Care Director Embalmer Name Role Phone Janessa Langley MD Primary Care Provider Mark Thomas MD Primary Care Provider Unav ailable Janessa Langley MD Primary Care Provider Unavaila Layla Juarez MD Primary Care Provider [phone] Amparo Pressley MD Primary Care Provider Un available Isela Roe MD Unavailable [phone] Layla Segal MD Primary Care Provider [phone] [facility] Primary Care Provider [facility]vergreenhealth e Encounter Details Date Type Department Care Team Description 01/12/2016 [facility] Medical Records [address] [place] [address] Abstract, Provider Social History Tobacco Use Types [...] filedocumented in this encounter Care Teams Director Embalmer Relationship Specialty Start Date End Date Janessa Langley MD PCP - General Internal Medicine 12/02/15 11/03/19 Mark Caraballo MD PCP - General Family Practice 11/04/19 04/13/20 Janessa Langley MD PCP - General Internal Medicine 04/14/20 08/08/20 Layla Segal MD [address] [place] [address] PCP - General Internal Medicine 08/09/20 10/19/20 Amparo Pressley MD [address] [place] [address] PCP - General Internal Medicine 10/20/20 12/12/20 Layla Segal MD [address] [place] [address] PCP - General Internal Medicine 12/13/20 01/07/22 [facility], Pcp 300 [facility] [address] [place] [address] PCP - General Internal Medicine 01/08/22 Isela Roe MD 300 [facility] [address] [place] [address] Specialist Cardiology 10/28/20 documented as of this encounter
--- OUTSIDE RECORDS SUMMARY | 2024-07-07 18:28 | XMS_ITS | Encounter Summary ---
Author Organization [facility] Address [address] [place] [address] Care Team Providers Care Supervisor Farm Equipment Maintenance Name Role Phone Janessa Langley MD Primary Care Provider UnavailMark Guadarrama MD Primary Care Provider Unav ailable Janessa Langley MD Primary Care Provider Unavaila Layla Juarez MD Primary Care Provider [phone] Amparo Pressley MD Primary Care Provider Un available Isela Roe MD Unavailable [phone] Layla Segal MD Primary Care Provider [phone] [facility] Primary Care Provider Unavailabl e Reason for Visit * Reason Onset Date Comments Faxed Refill 02/17/2016 Encounter Details Date Type Department Care Team Description 02/17/2016 Refill DELIVERY ROOM CLERK - [address] [id number] Denia Edge MD Faxed Refill Social History [...] EST WHEN WAS THE PATIENTS LAST ANNUAL PAPER SUPERVISOR EXAM? 06/16/15 Does patient have an upcoming [...] the end of the day? NO Payor: [facility] [employer] / Plan: FFS HMO $0 [place] [id number] / Product Type: MEDICAID RISK documented in this encounter Plan of Treatment Not on file documented as of this encounter Visit Diagnoses Not on filedocumented in this encounter Care Teams Supervisor Farm Equipment Maintenance Relationship Specialty Start Date End Date Janessa Langley MD PCP - General Internal Medicine 12/02/15 11/03/19 Mark Caraballo MD PCP - General Family Practice 11/04/19 04/13/20 Janessa Langley MD PCP - General Internal Medicine 04/14/20 08/08/20 Layla Segal MD [address] [place] [address] PCP - General Internal Medicine 08/09/20 10/19/20 Amparo Pressley MD [address] [place] [address] PCP - General Internal Medicine 10/20/20 12/12/20 Layla Segal MD [address] [place] [address] PCP - General Internal Medicine 12/13/20 01/07/22 [facility], Pcp 300 [facility] [address] [place] [address] PCP - General Internal Medicine 01/08/22 Isela Roe MD 300 [facility] [address] [place] [address] Specialist Cardiology 10/28/20 documented as of this encounter
--- OUTSIDE RECORDS SUMMARY | 2024-07-07 18:28 | XMS_ITS | Encounter Summary ---
Author Organization [facility] Address [address] [place] [address] Care Team Providers Care Air Bag Curer Name Role Phone Mark Alfonso MD Primary Care Provider Unavail able Janessa Langley MD Primary Care Provider Unavaila Mark Valera MD Primary Care Provider Unavail able Janessa Langley MD Primary Care Provider Unavaila Mark Mayo MD Primary Care Provider Unav ailable Janessa Langley MD Primary Care Provider Unavaila Layla Juarez MD Primary Care Provider [phone] Amparo Pressley MD Primary Care Provider Un available Isela Roe MD Unavailable [phone] Layla Segal MD Primary Care Provider [phone] [facility], Pcp Primary Care Provider Unavailabl e Encounter Details Date Type Department Care Team Description 08/07/2015 Pt. Non Urgent Medical Question VP OF PRODUCT - [address] [address] Denia Edge MD Social History Tobacco Use [...] on filedocumented in this encounter Care Teams Air Bag Curer Relationship Specialty Start Date End Date Mark [...] Medicine 04/14/20 08/08/20 Layla Segal MD [address] [place] [address] PCP - General Internal Medicine 08/09/20 10/19/20 Amparo Pressley MD [address] [place] [address] PCP - General Internal Medicine 10/20/20 12/12/20 Layla Segal MD [address] [place] [address] PCP - General Internal Medicine 12/13/20 01/07/22 [facility], [address] [address] PCP - General Internal Medicine 01/08/22 Isela Roe MD 300 [facility] [address] [place] [address] Specialist Cardiology 10/28/20 documented as of this encounter
--- OUTSIDE RECORDS SUMMARY | 2024-07-07 18:28 | XMS_ITS | Encounter Summary ---
Author Organization [facility] Address [address] [place] [address] Care Team Providers Care Lumber Scaler Name Role Phone Mark Alfonso MD Primary Care Provider Unavail able Janessa Langley MD Primary Care Provider Unavaila Mark Valera MD Primary Care Provider Unavail able Janessa Langley MD Primary Care Provider Unavaila Mark Mayo MD Primary Care Provider Unav ailable Janessa Langley MD Primary Care Provider Unavaila Layla Juarez MD Primary Care Provider [phone] Amparo Pressley MD Primary Care Provider Un available Isela Roe MD Unavailable [phone] Layla Segal MD Primary Care Provider [phone] [facility] Primary Care Provider Unavailabl e Encounter Details Date Type Department Care Team Description 08/19/2012 Coating Manager Report Medical Records [address] [place] [address] Sherry Panda Social History Tobacco Use Types [...] on filedocumented in this encounter Care Teams Lumber Scaler Relationship Specialty Start Date End Date Mark [...] Medicine 04/14/20 08/08/20 Layla Segal MD [address] [place] [address] PCP - General Internal Medicine 08/09/20 10/19/20 Amparo Pressley MD [address] [place] [address] PCP - General Internal Medicine 10/20/20 12/12/20 Layla Segal MD [address] [place] [address] PCP - General Internal Medicine 12/13/20 01/07/22 [facility], Pcp [address] [address] PCP - General Internal Medicine 01/08/22 Isela Roe MD [address] [address] Specialist Cardiology 10/28/20 documented as of this encounter
--- OUTSIDE RECORDS SUMMARY | 2024-07-07 18:28 | XMS_ITS | Encounter Summary ---
Author Organization [facility] Address [address] [place] [address] Care Team Providers Care Treating Plant Operator Name Role Phone Mark Alfonso MD Primary Care Provider Unavail able Janessa Langley MD Primary Care Provider Unavaila Mark Valera MD Primary Care Provider Unavail able Janessa Langley MD Primary Care Provider Unavaila Mark Mayo MD Primary Care Provider Unav ailable Janessa Langley MD Primary Care Provider Unavaila Layla Juarez MD Primary Care Provider [phone] Amparo Pressley MD Primary Care Provider Un available Isela Roe MD Unavailable [phone] Layla Segal MD Primary Care Provider [phone] [facility], Pcp Primary Care Provider Unavailabl e Encounter Details Date Type Department Care Team Description 08/12/2013 Walk In Clinic Visit Medical Records [address] [place] [address] Abstract, Provider Social History Tobacco Use Types [...] on filedocumented in this encounter Care Teams Treating Plant Operator Relationship Specialty Start Date End Date [...] Medicine 04/14/20 08/08/20 Layla Segal MD [address] [place] [address] PCP - General Internal Medicine 08/09/20 10/19/20 Amparo Pressley MD [address] [place] [address] PCP - General Internal Medicine 10/20/20 12/12/20 Layla Segal MD [address] [place] [address] PCP - General Internal Medicine 12/13/20 01/07/22 [facility], Pcp [address] [address] PCP - General Internal Medicine 01/08/22 Isela Roe MD [address] [address] Specialist Cardiology 10/28/20 documented as of this encounter
--- OUTSIDE RECORDS SUMMARY | 2024-07-07 18:28 | XMS_ITS | Encounter Summary ---
Author Organization [facility] Address [address] [place] [address] Care Team Providers Care Proteomics Scientist Name Role Phone Isela Roe MD Unavailable [phone] Layla Segal MD Primary Care Provider [phone] [facility], Pcp Primary Care Provider Unavailabl e Encounter Details Date Type Department Care Team Description 04/09/2021 Night Triage Doc Medical Records [address] [place] [phone] Abstract, Provider Social History Tobacco Use Types [...] on filedocumented in this encounter Care Teams Proteomics Scientist Relationship Specialty Start Date End Date Layla Segal MD [address] [place] [address] PCP - General Internal Medicine 12/13/20 01/07/22 [facility], Pcp [address] [place] [address] PCP - General Internal Medicine 01/08/22 Isela Roe MD [address] [place] [address] Specialist Cardiology 10/28/20 documented as of this encounter
--- OUTSIDE RECORDS SUMMARY | 2024-07-07 18:28 | XMS_ITS | Encounter Summary ---
Author Organization [facility] Address [address] [place] [address] Care Team Providers Care Title I Coordinator Name Role Phone Janessa Langley MD Primary Care Provider UnavailMark Frank MD Primary Care Provider Unavail able Janessa Langley MD Primary Care Provider Unavaila Mark Mayo MD Primary Care Provider Unav ailable Janessa Langley MD Primary Care Provider Unavaila Layla Juarez MD Primary Care Provider [phone] Amparo Pressley MD Primary Care Provider Un available Isela Roe MD Unavailable [phone] Layla Segal MD Primary Care Provider [phone] [facility], Pcp Primary Care Provider Unavailabl e Encounter Details Date Type Department Care Team Description 09/08/2015 Pt. Non Urgent Medical Question TOBACCO CLASSER - [address] [address] Denia Edge MD Social History Tobacco Use Types Packs/Day Years Used Date Smoking Tobacco: Former Cigarettes 0.3 Q uit: 05/02/2015 Smokeless Tobacco: Never Alcohol Use Standard Drinks/Week Comments No 0 (1 standard drink = 0.6 oz pur e alcohol) Sex Assigned at Date Recorded Not on file documented as of this encounter Progress Notes * Dick Mas.P.N. - 09/09/2015 2:28 PM EDTFrom: Kristen Bui To: Denia Edge MD Sent: 09/08/2015 6:57 PM EDT Subject: extreme pain during period Hi Thierno sorry to be a bother about this but I am experienceing a great deal of pain ,my period started this morning and I can barely walk because my pelvis and left side of my back are killing me. I have tryed ibrophen and my muscle relaxer and Nothing is touching this pain. heating pad,hot shower ,pillows ,pain patches,and nothing. 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 I need to have some way to get this pain under control, please if you have any type of suggestions or a relief of somesort I would greatly apperciate it. Thank You Kristen Bui documented in this encounter Plan of Treatment Not on file documented as of this encounter Visit Diagnoses Not on filedocumented in this encounter Care Teams Title I Coordinator Relationship Specialty Start Date End Date Janessa Langley MD PCP - General Internal Medicine 09/07/15 09/08/15 Mark Alfonso MD PCP - General Internal Medicine 09/09/15 12/01/15 Janessa Langley MD PCP - General Internal Medicine 12/02/15 11/03/19 Mark Caraballo MD PCP - General Family Practice 11/04/19 04/13/20 Janessa Langley MD PCP - General Internal Medicine 04/14/20 08/08/20 Layla Segal MD [address] [place] [address] PCP - General Internal Medicine 08/09/20 10/19/20 Amparo Pressley MD [address] [place] [address] PCP - General Internal Medicine 10/20/20 12/12/20 Layla Segal MD [address] [place] [address] PCP - General Internal Medicine 12/13/20 01/07/22 [facility], [address] [address] PCP - General Internal Medicine 01/08/22 Isela Roe MD 300 [facility] [address] [place] [address] Specialist Cardiology 10/28/20 documented as of this encounter
--- OUTSIDE RECORDS SUMMARY | 2024-07-07 18:28 | XMS_ITS | Encounter Summary ---
Author Organization [facility] [facility] Address [address] [place] [address] Care Team Providers Care Head Waitress Name Role Phone Janessa Langley MD Primary Care Provider UnavailMark Guadarrama MD Primary Care Provider Unav ailable Janessa Langley MD Primary Care Provider Unavaila Layla Juarez MD Primary Care Provider [phone] Amparo Pressley MD Primary Care Provider Un available Isela Roe MD Unavailable [phone] Layla Segal MD Primary Care Provider [phone] [facility], [facility] Primary Care Provider Unavailabl e Encounter Details Date Type Department Care Team Description 05/08/2017 Orders Only Medicine/Pediatrics - [address] [address] Janessa Langley MD History of thyroid cancer [...] 0 - 200 mg/dL 05/08/2017 2:22 PM [facility] TRIGLYCERIDES 78 0 - 150 mg/dL 05/08/2017 2:22 PM [facility] HDL CHOLESTEROL 48 >40 mg/dL 8 2:22 PM [facility] LDL CALCULATED 142(H) 0 - 100 mg/dL 05/08/2017 2:23 PM [facility] TC-HDLC RATIO 4 0.0 - 4.4 mg/dL 05/08/2017 2:22 PM [facility] 05/08/2017 10:4 8 AM EST 05/08/2017 10:49 AM EST Janessa Langley MD LAB [facility] [address] [facility] * (ABNORMAL) COMPREHENSIVE METABOLIC PANEL (05/08/2017 10:48 AM EST) Pathologist [facility] GLUCOSE 97 70 - 100 mg/dL 05/08/2017 2:22 PM [facility] Comment: Reference range applicable to fasting specimens only Based on recommendations from the ADA and AACE, the fasting glucose reference range has been changed to 70-100 mg/dL. ??This change is effective August 15, 2009 BUN 16 5 - 25 mg/dL 05/08/2017 2:22 PM [facility] CREAT 0.7 0.7 - 1.5 mg/dL 05/08/2017 2:22 PM [facility] BUN/CREAT RATIO 22.9(H) 6.0 - 20.0 05/08/2017 2:22 PM [facility] GFR > 60 >60 05/08/2017 2:22 PM [facility] Comment: If patient is -Belgian, multiply result by 1.21 Chronic Kidney Disease: < 60 ml/min/1.73 square meters Kidney Failure: < 15 ml/min/1.73 square meters Sodium 141 133 - 145 mEq/L 05/08/2017 2:22 PM [facility] Potassium 4.5 3.5 - 5.5 mEq/L 05/08/2017 [...] 1.1 - 2.3 05/08/2017 2:22 PM EST [facility] BILI,TOTAL 0.3 0.0 - 1.2 mg/dL 05/08/2017 2:22 PM EST [facility] AST (SGOT) 23 10 - 42 U/L 05/08/2017 2:22 PM EST [facility] ALT( SGPT) 24 10 - 60 U/L 05/08/2017 2:22 PM EST [facility] ALK PHOS 70 42 - 121 U/L 05/08/2017 2:22 PM EST [facility] 05/08/2017 10:4 8 AM EST 05/08/2017 10:49 AM EST Janessa Langley MD LAB [facility] [address] [facility] * ANTIBODY, THYROGLOBULIN (05/08/2017 10:48 AM EST) ANTITHYROGLOBULIN AB 18 <60 U/ml 09/2017 1:35 PM EST [facility] 05/08/2017 10:4 8 AM EST 05/08/2017 10:49 AM EST Janessa Langley MD LAB [facility] * (ABNORMAL) THYROID PROFILE W/TSH (05/08/2017 10:48 AM EST) TSH CASCADE 8.81(H) 0.40 - 4.00 uIU/ml 05/08/2017 2:22 PM EST [facility] 05/08/2017 10:4 8 AM EST 05/08/2017 10:49 AM EST Janessa Langley MD LAB Performing Organization Address City/[facility]/ZIP Co de Phone Number [facility] [address] [facility] documented in this encounter Visit Diagnoses Diagnosis History of thyroid cancer- Primary Personal history of malignant neoplasm of thyroid Preventive measure Unspecified prophylactic or treatment measure documented in this encounter Care Teams Head Waitress Relationship Specialty Start Date End Date Janessa Langley MD PCP - General Internal Medicine 12/02/15 11/03/19 Mark Caraballo MD PCP - General Family Practice 11/04/19 04/13/20 Janessa Langley MD PCP - General Internal Medicine 04/14/20 08/08/20 Layla Segal MD [address] [place] [address] PCP - General Internal Medicine 08/09/20 10/19/20 Amparo Pressley MD [address] [place] [address] PCP - General Internal Medicine 10/20/20 12/12/20 Layla Segal MD [address] [place] [address] PCP - General Internal Medicine 12/13/20 01/07/22 [facility], Pcp [address] [address] PCP - General Internal Medicine 01/08/22 Isela Roe MD [address] [address] Specialist Cardiology 10/28/20 documented as of this encounter
--- OUTSIDE RECORDS SUMMARY | 2024-07-07 18:28 | XMS_ITS | Encounter Summary ---
Author Organization [facility] Address [address] [place] [address] Care Team Providers Care Multi Disciplined Language Analyst Name Role Phone Janessa Langley MD Primary Care Provider Mark Thomas MD Primary Care Provider Unav ailable Jansesa Langley MD Primary Care Provider Unavaila Layla Juarez MD Primary Care Provider [phone] Amparo Pressley MD Primary Care Provider Un available Isela Roe MD Unavailable [phone] Layla Segal MD Primary Care Provider [phone] [facility] Primary Care Provider Unavailabl e Encounter Details Date Type Department Care Team Description 01/15/2019 Release of Information Medical Records [address] [place] [address] Abstract, Provider Social History Tobacco Use Types [...] on filedocumented in this encounter Care Teams Multi Disciplined Language Analyst Relationship Specialty Start Date End Date Janessa Langley MD PCP - General Internal Medicine 12/02/15 11/03/19 Mark Caraballo MD PCP - General Family Practice 11/04/19 04/13/20 Janessa Langley MD PCP - General Internal Medicine 04/14/20 08/08/20 Layla Segal MD [address] [place] [address] PCP - General Internal Medicine 08/09/20 10/19/20 Amparo Pressley MD [address] [place] [address] PCP - General Internal Medicine 10/20/20 12/12/20 Layla Segal MD [address] [place] [address] PCP - General Internal Medicine 12/13/20 01/07/22 [facility], Pcp [address] [address] PCP - General Internal Medicine 01/08/22 Isela Roe MD 300 [facility] [address] [place] [address] Specialist Cardiology 10/28/20 documented as of this encounter
--- OUTSIDE RECORDS SUMMARY | 2024-07-07 18:28 | XMS_ITS | Encounter Summary ---
Author Organization [facility] Address [address] [place] [address] Care Team Providers Care Administrative Resident Name Role Phone Janessa Langley MD Primary Care Provider Mark Thomas MD Primary Care Provider Unav ailable Janessa Langley MD Primary Care Provider Unavaila Layla Juarez MD Primary Care Provider [phone] Amparo Pressley MD Primary Care Provider Un available Isela Roe MD Unavailable [phone] Layla Segal MD Primary Care Provider [phone] [facility] Primary Care Provider Unavailabl e Encounter Details Date Type Department Care Team Description 05/14/2017 Release of Information Medical Records [address] [place] [address] Abstract, Provider Social History Tobacco Use Types [...] on filedocumented in this encounter Care Teams Administrative Resident Relationship Specialty Start Date End Date Janessa Langley MD PCP - General Internal Medicine 12/02/15 11/03/19 Mark Caraballo MD PCP - General Family Practice 11/04/19 04/13/20 Janessa Langley MD PCP - General Internal Medicine 04/14/20 08/08/20 Layla Segal MD [address] [place] [address] PCP - General Internal Medicine 08/09/20 10/19/20 Amparo Pressley MD [address] [place] [address] PCP - General Internal Medicine 10/20/20 12/12/20 Layla Segal MD [address] [place] [address] PCP - General Internal Medicine 12/13/20 01/07/22 [facility], Pcp [address] [facility] [address] [place] [address] PCP - General Internal Medicine 01/08/22 Isela Roe MD [address] [facility] [address] [place] [address] Specialist Cardiology 10/28/20 documented as of this encounter
--- OUTSIDE RECORDS SUMMARY | 2024-07-07 18:28 | XMS_ITS | Encounter Summary ---
Author Organization [facility] Address [address] [place] [address] Care Team Providers Care Negative Restorer Name Role Phone Mark Alfonso MD Primary Care Provider Unavail able Janessa Langley MD Primary Care Provider UnavailMark Guadarrama MD Primary Care Provider Unav ailable Janessa Langley MD Primary Care Provider Unavaila Layla Juarez MD Primary Care Provider [phone] Amparo Pressley MD Primary Care Provider Un available Isela Roe MD Unavailable [phone] Layla Segal MD Primary Care Provider [phone] [facility] Encounter Details Date Type Department Care Team Description 11/03/2015 Pt. Non Urgent Medic al Question Pulmonology [address] [place] [address] Shekhar Carrasco MD Social History Tobacco Use [...] cancelation I am unable to drive to [place] due vomitting and swelling on right side under my eye socket. 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 woke up this morning with more vomiting and a swollen face and now I having visuale trouble. Very sorry for the short notice , but its not safe for me to drive . documented in this encounter Plan of Treatment Not on file documented as of this encounter Visit Diagnoses Not on filedocumented in this encounter Care Teams Negative Restorer Relationship Specialty Start Date End Date Mark Alfonso MD PCP - General Internal Medicine 09/09/15 12/01/15 Janessa Langley MD PCP - General Internal Medicine 12/02/15 11/03/19 Mark Caraballo MD PCP - General Family Practice 11/04/19 04/13/20 Janessa Langley MD PCP - General Internal Medicine 04/14/20 08/08/20 Layla Segal MD [address] [place] [address] PCP - General Internal Medicine 08/09/20 10/19/20 Amparo Pressley MD [address] [place] [address] PCP - General Internal Medicine 10/20/20 12/12/20 Layla Segal MD [address] [place] [address] PCP - General Internal Medicine 12/13/20 01/07/22 [facility] [address] [address] PCP - General Internal Medicine 01/08/22 Isela Roe MD [address] [address] Specialist Cardiology 10/28/20 documented as of this encounter
--- OUTSIDE RECORDS SUMMARY | 2024-07-07 18:28 | XMS_ITS | Encounter Summary ---
Author Organization [facility] Address [address] [place] [address] Care Team Providers Care Public Relations Studies Director Name Role Phone Mark Alfonso MD Primary Care Provider Unavail able Janessa Langley MD Primary Care Provider Unavaila Mark Valera MD Primary Care Provider Unavail able Janessa Langley MD Primary Care Provider Unavaila Mark Mayo MD Primary Care Provider Unav ailable Janessa Langley MD Primary Care Provider Unavaila Layla Juarez MD Primary Care Provider [phone] Amparo Pressley MD Primary Care Provider Un available Isela Roe MD Unavailable [phone] Layla Segal MD Primary Care Provider [phone] [facility], [facility], Pcp Primary Care Provider Unavailabl e Encounter Details Date Type Department Care Team Description 06/19/2015 Pt. Non Urgent Medical Question [facility] - [address] [address] Denia Edge MD Dysmenorrhea (Primary Dx) Social [...] Primary documented in this encounter Care Teams Public Relations Studies Director Relationship Specialty Start Date End Date Mark [...] Medicine 04/14/20 08/08/20 Layla Segal MD [address] [place] [address] PCP - General Internal Medicine 08/09/20 10/19/20 Amparo Pressley MD [address] [place] [address] PCP - General Internal Medicine 10/20/20 12/12/20 Layla Segal MD [address] [place] [address] PCP - General Internal Medicine 12/13/20 01/07/22 Community, [address] [place] [address] PCP - General Internal Medicine 01/08/22 Isela Roe MD 300 [facility] [address] [place] [address] Specialist Cardiology 10/28/20 documented as of this encounter
--- OUTSIDE RECORDS SUMMARY | 2024-07-07 18:28 | XMS_ITS | Encounter Summary ---
Author Organization [facility] Address [address] [place] [address] Care Team Providers Care Specialty Plant Supervisor Name Role Phone Mark Alfonso MD Primary Care Provider Unavail able Janessa Langley MD Primary Care Provider Unavaila Mark Valera MD Primary Care Provider Unavail able Janessa Langley MD Primary Care Provider Unavaila Mark Mayo MD Primary Care Provider Unav ailable Janessa Langley MD Primary Care Provider Unavaila Layla Juarez MD Primary Care Provider [phone] Amparo Pressley MD Primary Care Provider Un available Isela Roe MD Unavailable [phone] Layla Segal MD Primary Care Provider [phone] [facility], Pcp Primary Care Provider Unavailabl e Encounter Details Date Type Department Care Team Description 10/14/2013 Nutrition Services Manager Report Medical Records [address] [place] [address] Viky Clifford Social History Tobacco Use Types [...] on filedocumented in this encounter Care Teams Specialty Plant Supervisor Relationship Specialty Start Date End [...] Medicine 04/14/20 08/08/20 Layla Segal MD [address] [place] [address] PCP - General Internal Medicine 08/09/20 10/19/20 Amparo Pressley MD [address] [place] [address] PCP - General Internal Medicine 10/20/20 12/12/20 Layla Segal MD [address] [place] [address] PCP - General Internal Medicine 12/13/20 01/07/22 [facility], Pcp [address] [address] PCP - General Internal Medicine 01/08/22 Isela Roe MD [address] [address] Specialist Cardiology 10/28/20 documented as of this encounter
--- OUTSIDE RECORDS SUMMARY | 2024-07-07 18:28 | XMS_ITS | Clinical Summary ---
Author Organization [facility] Address [address] [place] [address] Phone Care Team Providers Care Editor In Chief Name Role Phone Janessa Tian MD Primary Care Provider [phone] Surgical History Surgery Date Site/Laterality Comments KNEE SURGERY 05/2003 Right PROCEDURE: HISTORICAL KNEE SURGERY THYROIDECTOMY 06/2010 PROCEDURE: HISTORICAL TOTAL THYROIDECTOMY; COMMENT: papillary cancer TUBAL LIGATION 12/2007 PROCEDURE: HISTORICAL TUBAL LIGATION; COMMENT: with c/s OTHER SURGICAL HISTORY 06/2012 PROCEDURE: RI BX/EXC LYMPH NODE OPEN DEEP CERVICAL NODE; [...] obstructive pu lmonary disease) ([facility]) 06/21/2016 DX:COPD (chronic obstructive pulmonary disease) ([facility]) Depression 12/26/2016 DX:Depression Dysphagia 10/09/2016 DX:Dysphagia Gastroesophageal reflux disease 12/26/2016 DX:Gastroesophageal reflux disease 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; 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 PVD (peripheral vascular dis ease) ([facility]) 10/19/2020 DX:PVD (peripheral vascular disease) ([facility]); COMMENT: bilateral Family History Medical History [...] 08/31/2021 3:08 PM EDT Plan of Treatment Upcoming Encounters Date Type Department Care Team (Late st Contact Info) Description 07/08/2024 1:30 PM EDT Treatment [facility] Occupational Therapy [address] [place] [phone] Sierra Rausch, OTR/L Health Maintenance Due Date Last Done Comments [...] COVID-19 Vaccine ( season) 2023 Influenza Vaccine (Season Ended) 2024 01/20/2018, 01/05/2016, 11/30/2014, Additional history exists HIB Vaccines [...] age to complete this topic Meningococcal B Vaccine Aged Out No l onger eligible based on patient's age to complete this topic RSV Immunization Patients Under 20 months Aged Out No longer eligible based on patient's age to complete this topic Varicella Vaccines Aged Out No longer eligible based on patient's age to complete this topic Insurance [facility] Care Teams Editor In Chief Relationship Specialty Start Date End Date Janessa Tian MD [address] [place] [address] PCP - General Internal Medicine 07/01/24
--- OUTSIDE RECORDS SUMMARY | 2024-07-07 18:28 | XMS_ITS | Encounter Summary ---
Author Organization [facility] Address [address] [place] [address] Care Team Providers Care Gas Booster Engineer Name Role Phone Amparo Pressley MD Primary Care Provider Un available Mark Alfonso MD Primary Care Provider Unavail able Janessa Langley MD Primary Care Provider Unavaila Mark Valera MD Primary Care Provider Unavail able Janessa Langley MD Primary Care Provider Unavaila Mark Mayo MD Primary Care Provider Unav ailable Janessa Langley MD Primary Care Provider Unavaila Layla Juarez MD Primary Care Provider [phone] Amparo Pressley MD Primary Care Provider Un available Isela Roe MD Unavailable [phone] Layla Segal MD Primary Care Provider [phone] [facility], Pcp Primary Care Provider Unavailabl e Encounter Details Date Type Department Care Team Description 04/26/2012 Director Educational Radio Report Medical Records [address] [place], [place] [id number] [place] [address] Social History Tobacco Use Types Packs/Day Years [...] on filedocumented in this encounter Care Teams Gas Booster Engineer Relationship Specialty Start Date End Date [...] Medicine 04/14/20 08/08/20 Layla Segal MD [address] [place] [address] PCP - General Internal Medicine 08/09/20 10/19/20 Amparo Pressley MD PCP - General Internal Medicine 10/20/20 Layla Segal MD [address] [place] [address] PCP - General Internal Medicine 12/13/20 01/07/22 [facility], Pcp [address] [address] PCP - General Internal Medicine 01/08/22 Isela Roe MD [address] [address] Specialist Cardiology 10/28/20 documented as of this encounter
--- OUTSIDE RECORDS SUMMARY | 2024-07-07 18:28 | XMS_ITS | Encounter Summary ---
Author Organization [facility] Address [address] [place] [address] Care Team Providers Care Forming Roll Operator Name Role Phone Amparo Pressley MD Primary Care Provider Un available Mark Alfonso MD Primary Care Provider Unavail able Janessa Langley MD Primary Care Provider Unavaila Mark Valera MD Primary Care Provider Unavail able Janessa Langley MD Primary Care Provider Unavaila Mark Mayo MD Primary Care Provider Unav ailable Janessa Langley MD Primary Care Provider Unavaila Layla Juarez MD Primary Care Provider [phone] Amparo Pressley MD Primary Care Provider Un available Isela Roe MD Unavailable [phone] Layla Segal MD Primary Care Provider [phone] [facility], Pcp Primary Care Provider Unavailabl e Encounter Details Date Type Department Care Team Description 06/09/2010 Night Triage Doc Medical Records [address] [place] [address] Abstract, Provider Social History Tobacco Use Types [...] filedocumented in this encounter Care Teams Forming Roll Operator Relationship Specialty Start Date End Date [...] Medicine 04/14/20 08/08/20 Layla Segal MD [address] [place] [address] PCP - General Internal Medicine 08/09/20 10/19/20 Amparo Pressley MD PCP - General Internal Medicine 10/20/20 Layla Segal MD [address] [place] [address] PCP - General Internal Medicine 12/13/20 01/07/22 [facility], Pcp [address] [address] PCP - General Internal Medicine 01/08/22 Isela Roe MD [address] [address] Specialist Cardiology 10/28/20 documented as of this encounter
--- OUTSIDE RECORDS SUMMARY | 2024-07-07 18:28 | XMS_ITS | Encounter Summary ---
Author Organization [facility] Address [address] [place] [address] Care Team Providers Care Drain Cleaner Name Role Phone Mark Alfonso MD Primary Care Provider Unavail able Janessa Langley MD Primary Care Provider UnavailMark Guadarrama MD Primary Care Provider Unav ailable Janessa Langley MD Primary Care Provider Unavaila Layla Juarez MD Primary Care Provider [phone] Amparo Pressley MD Primary Care Provider Un available Isela Roe MD Unavailable [phone] Layla Segal MD Primary Care Provider [phone] [facility], Pcp Primary Care Provider Unavailabl e Encounter Details Date Type Department Care Team Description 09/14/2015 Pt. Non Urgent Medic al Question Pulmonology [address] [place] [address] Shekhar Carrasco MD Social History Tobacco Use [...] filedocumented in this encounter Care Teams Drain Cleaner Relationship Specialty Start Date End Date Mark Alfonso MD PCP - General Internal Medicine 09/09/15 12/01/15 Janessa Langley MD PCP - General Internal Medicine 12/02/15 11/03/19 Mark Caraballo MD PCP - General Family Practice 11/04/19 04/13/20 Janessa Langley MD PCP - General Internal Medicine 04/14/20 08/08/20 Layla Segal MD [address] [place] [address] PCP - General Internal Medicine 08/09/20 10/19/20 Amparo Pressley MD [address] [place] [address] PCP - General Internal Medicine 10/20/20 12/12/20 Layla Segal MD [address] [place] [address] PCP - General Internal Medicine 12/13/20 01/07/22 [facility], Pcp [address] [address] PCP - General Internal Medicine 01/08/22 Isela Roe MD [address] [address] Specialist Cardiology 10/28/20 documented as of this encounter
--- OUTSIDE RECORDS SUMMARY | 2024-07-07 18:29 | XMS_ITS | Encounter Summary ---
Author Organization [facility] Address [address] [place] [address] Care Team Providers Care Retail Reset Merchandiser Name Role Phone Janessa Langley MD Primary Care Provider UnavailMark Guadarrama MD Primary Care Provider Unav ailable Janessa Langley MD Primary Care Provider Unavaila Layla Juarez MD Primary Care Provider [phone] Amparo Pressley MD Primary Care Provider Un available Isela Roe MD Unavailable [phone] Layla Segal MD Primary Care Provider [phone] [facility], [facility] Primary Care Provider Unavailabl e Encounter Details Date Type Department Care Team Description 07/16/2018 Telephone Pulmonology - [place] 175 [facility] [address] [place] [address] Morales Richards MD [address] [place] [id number] Social History Tobacco Use Types Packs/Day Years [...] - 07/16/2018 3:12 PM EDT [facility], requested an alternative for Advair 115-21 mcg inhaler or needed a PA. documented in this encounter Plan of Treatment Not on file documented as of this encounter Visit Diagnoses Diagnosis Pulmonary emphysema, unspecified emphysema type (HCC)- Primary documented in this encounter Care Teams Retail Reset Merchandiser Relationship Specialty Start Date End Date Janessa Langley MD PCP - General Internal Medicine 12/02/15 11/03/19 Mark Caraballo MD PCP - General Family Practice 11/04/19 04/13/20 Janessa Langley MD PCP - General Internal Medicine 04/14/20 08/08/20 Layla Segal MD [address] [place] [address] PCP - General Internal Medicine 08/09/20 10/19/20 Amparo Pressley MD [address] [place] [address] PCP - General Internal Medicine 10/20/20 12/12/20 Layla Segal MD [address] [place] [address] PCP - General Internal Medicine 12/13/20 01/07/22 [facility], Pcp [address] [address] PCP - General Internal Medicine 01/08/22 Isela Roe MD [address] [address] Specialist Cardiology 10/28/20 documented as of this encounter
--- OUTSIDE RECORDS SUMMARY | 2024-07-07 18:29 | XMS_ITS | Encounter Summary ---
Author Organization [facility] Address [address] [place] [address] Care Team Providers Care Brick Machine Operator Name Role Phone Isela Roe MD Unavailable Layla Segal MD Primary Care Provider [phone] [facility], [facility] Primary Care Provider Unavailabl e Reason for Visit * Reason Comments E-prescribe Rx Request Encounter Details Date Type Department Care Team Description 08/21/2021 Refill Adult Medicine [address] [address] Wendy Taylor PA-C [address] [place] [id number] E-prescribe Rx Request Social History Tobacco Use [...] on filedocumented in this encounter Care Teams Brick Machine Operator Relationship Specialty Start Date End Date Layla Segal MD [address] [place] [address] PCP - General Internal Medicine 12/13/20 [facility]07[facility]22 [facility] [address] [place] [address] PCP - General Internal Medicine 01/08/22 Isela Roe MD [address] [place] [address] Specialist Cardiology 10/28/20 documented as of this encounter
--- OUTSIDE RECORDS SUMMARY | 2024-07-07 18:29 | XMS_ITS | Encounter Summary ---
Author Organization [facility] Address [address] [place] [address] Care Team Providers Care Retail Banking Manager Name Role Phone Janessa Langley MD Primary Care Provider UnavailMark Guadarrama MD Primary Care Provider Unav ailable Janessa Langley MD Primary Care Provider Unavaila Layla Juarez MD Primary Care Provider [phone] Amparo Pressley MD Primary Care Provider Un available Isela Roe MD Unavailable [phone] Layla Segal MD Primary Care Provider [phone] [facility], [facility] Primary Care Provider Unavailabl e Reason for Referral * (Routine) - Closed Specialty Diagnoses / Procedures Referred By Jeanette t Referred To Contact Urology Procedures REFERRAL TO UROLOGY Janessa Langley MD [address] [place] [id number] External Urology Referral ID Status Reason Start Date Expiration Date V isits Requested Visits Authorized SEE REVIEW ON 07/16/2017 Closed 07/16/2017 1 1 Reason for Visit * Reason Onset Date Comments APPOINTMENT 07/16/2017 Encounter Details Date Type Department Care Team Description 07/16/2017 Telephone Medicine/Pediatrics - [address] [address] Janessa Langley MD APPOINTMENT Social History Tobacco [...] cancel any appointment that she has in [place] if she needs to. * Telephone Encounter - Gladis Tinoco RN - 07/16/2017 12:19 PM EDT See below Pended, mention only wants [facility] * Telephone Encounter - Mindy Tam - 07/16/2017 12:06 PM EDT Pt states she wants dr langley to refer her out to a urologist in [facility]. She does not want to go to [place]. Patient states she has mentioned this multiple times. She wants any appts out in [place] cancelled. documented in this encounter Plan of Treatment Not on file documented as of this encounter Visit Diagnoses Not on filedocumented in this encounter Care Teams Retail Banking Manager Relationship Specialty Start Date End Date Janessa Langley MD PCP - General Internal Medicine 12/02/15 11/03/19 Mark Caraballo MD PCP - General Family Practice 11/04/19 04/13/20 Janessa Langley MD PCP - General Internal Medicine 04/14/20 08/08/20 Layla Segal MD [address] [place] [address] PCP - General Internal Medicine 08/09/20 10/19/20 Amparo Pressley MD [address] [place] [address] PCP - General Internal Medicine 10/20/20 12/12/20 Layla Segal MD [address] [place] [address] PCP - General Internal Medicine 12/13/20 01/07/22 [facility], Pcp [address] [address] PCP - General Internal Medicine 01/08/22 Isela Roe MD [address] [facility] [address] [place] [address] Specialist Cardiology 10/28/20 documented as of this encounter
--- OUTSIDE RECORDS SUMMARY | 2024-07-07 18:29 | XMS_ITS | Encounter Summary ---
Author Organization [facility] Address [address] [place] [address] Care Team Providers Care District Manager Name Role Phone Isela Roe MD Unavailable [phone] Layla Segal MD Primary Care Provider [phone] [facility], Pcp Primary Care Provider Unavailabl e Encounter Details Date Type Department Care Team Description 08/27/2021 Technical Information Specialist Report Medical Records [address] [place] [address] Marley Chau NP Social History Tobacco Use [...] filedocumented in this encounter Care Teams District Manager Relationship Specialty Start Date End Date Layla Segal MD [address] [place] [address] PCP - General Internal Medicine 12/13/20 01/07/22 [facility], Pcp [address] [place] [address] PCP - General Internal Medicine 01/08/22 Isela Roe MD 300 [facility] 154 [place] [address] Specialist Cardiology 10/28/20 documented as of this encounter
--- OUTSIDE RECORDS SUMMARY | 2024-07-07 18:29 | XMS_ITS | Encounter Summary ---
Author Organization [facility] Address [address] [place] [address] Care Team Providers Care Combo Welder Name Role Phone Janessa Langley MD Primary Care Provider UnavailMark Guadarrama MD Primary Care Provider Unav ailable Janessa Langley MD Primary Care Provider Unavaila Layla Juarez MD Primary Care Provider [phone] Amparo Pressley MD Primary Care Provider Un available Isela Roe MD Unavailable [phone] Layla Segal MD Primary Care Provider [phone] [facility], [facility] Primary Care Provider Unavailabl e Encounter Details Date Type Department Care Team Description 06/06/2016 Orders Only Pulmonology [address] [place] [address] Boubacar Browning MD [address] [address] History of thyroid cancer; Uncomplicated [...] PH/PO2/PCO2/ETC (05/24/2016) 05/24/2016 Boubacar Browning MD [facility] documented in this encounter Visit Diagnoses Diagnosis History of thyroid cancer Personal history of malignant neoplasm of thyroid Uncomplicated severe persistent asthma Former smoker Personal history of tobacco use, presenting hazards to health Restrictive lung disease secondary to obesity Other diseases of lung, not elsewhere classified documented in this encounter Care Teams Combo Welder Relationship Specialty Start Date End Date Janessa Langley MD PCP - General Internal Medicine 12/02/15 11/03/19 Mark Caraballo MD PCP - General Family Practice 11/04/19 04/13/20 Janessa Langley MD PCP - General Internal Medicine 04/14/20 08/08/20 Layla Segal MD [address] [place] [address] PCP - General Internal Medicine 08/09/20 10/19/20 Amparo Pressley MD [address] [place] [address] PCP - General Internal Medicine 10/20/20 12/12/20 Layla Segal MD [address] [place] [address] PCP - General Internal Medicine 12/13/20 01/07/22 [facility], Pcp [address] [address] PCP - General Internal Medicine 01/08/22 Isela Roe MD [address] [address] Specialist Cardiology 10/28/20 documented as of this encounter
--- OUTSIDE RECORDS SUMMARY | 2024-07-07 18:29 | XMS_ITS | Encounter Summary ---
Author Organization [facility] Address [address] [place] [address] Care Team Providers Care Metal Slitter Name Role Phone Janessa Langley MD Primary Care Provider Mark Thomas MD Primary Care Provider Unav ailable Janessa Langley MD Primary Care Provider Unavaila Layla Juarez MD Primary Care Provider [phone] Amparo Pressley MD Primary Care Provider Un available Isela Roe MD Unavailable [phone] Layla Segal MD Primary Care Provider [phone] [facility] Primary Care Provider [facility] Encounter Details Date Type Department Care Team Description 07/02/2017 [facility] Medical Records [address] [place] [address] Abstract, Provider Social History Tobacco Use Types [...] on filedocumented in this encounter Care Teams Metal Slitter Relationship Specialty Start Date End Date Janessa Langley MD PCP - General Internal Medicine 12/02/15 11/03/19 [place] Caraballo MD PCP - General Family Practice 11/04/19 04/13/20 Janessa Langley MD PCP - General Internal Medicine 04/14/20 08/08/20 Layla Segal MD [address] [place] [address] PCP - General Internal Medicine 08/09/20 10/19/20 Amparo Pressley MD [address] [place] [address] PCP - General Internal Medicine 10/20/20 12/12/20 Layla Segal MD [address] [place] [address] PCP - General Internal Medicine 12/13/20 01/07/22 [facility], Pcp 300 [facility] [address] [place] [address] PCP - General Internal Medicine 01/08/22 Isela Roe MD 300 [facility] [address] [place] [address] Specialist Cardiology 10/28/20 documented as of this encounter
--- OUTSIDE RECORDS SUMMARY | 2024-07-07 18:29 | XMS_ITS | Encounter Summary ---
Author Organization [facility] Address [address] [place] [address] Care Team Providers Care Lathe Tender Name Role Phone Janessa Langley MD Primary Care Provider UnavailMark Guadarrama MD Primary Care Provider Unav ailable Janessa Langley MD Primary Care Provider Unavaila Layla Juarez MD Primary Care Provider [phone] Amparo Pressley MD Primary Care Provider Un available Isela Roe MD Unavailable [phone] Layla Segal MD Primary Care Provider [phone] [facility] Primary Care Provider Unavailabl e Reason for Visit * Reason Onset Date Comments Video Editing Internship Feedback 07/25/2017 urology Encounter Details Date Type Department Care Team Description 07/25/2017 Telephone Medicine/Pediatrics - [address] [phone] Janessa Langley MD Video Editing Internship Feedback (urology) Social History Tobacco Use Types [...] patient was seen by [facility] on 08-09-[address] Schwarz. If this patient still needs to be seen a new order will need to be pended but she can not go to [facility] as they do not have a urology department. Thank you, Asuncion Referrals Coordinator [facility] documented in this encounter Plan of Treatment Not on file documented as of this encounter Visit Diagnoses Not on filedocumented in this encounter Care Teams Lathe Tender Relationship Specialty Start Date End Date Janessa Langley MD PCP - General Internal Medicine 12/02/15 11/03/19 Mark Caraballo MD PCP - General Family Practice 11/04/19 04/13/20 Janessa Langley MD PCP - General Internal Medicine 04/14/20 08/08/20 Layla Segal MD [address] [place] [address] PCP - General Internal Medicine 08/09/20 10/19/20 Amparo Pressley MD [address] [place] [address] PCP - General Internal Medicine 10/20/20 12/12/20 Layla Segal MD [address] [place] [address] PCP - General Internal Medicine 12/13/20 01/07/22 [facility], Pcp [address] [address] PCP - General Internal Medicine 01/08/22 Isela Roe MD [address] [address] Specialist Cardiology 10/28/20 documented as of this encounter
--- OUTSIDE RECORDS SUMMARY | 2024-07-07 18:29 | XMS_ITS | Encounter Summary ---
Author Organization [facility] Address [address] [place] [address] Care Team Providers Care Fairing Man Name Role Phone Isela Roe MD Unavailable [phone] Layla Segal MD Primary Care Provider [phone] [facility], Pcp Primary Care Provider Unavailabl e Encounter Details Date Type Department Care Team Description 10/25/2021 Orders Only Adult Medicine [address] [phone] She Ornelas PA-C [address] [place] [address] [phone] Social History Tobacco Use Types Packs/Day Years [...] on filedocumented in this encounter Care Teams Fairing Man Relationship Specialty Start Date End Date Layla Segal MD [address] [place] [address] [phone] PCP - General Internal Medicine 12/13/20 01/07/22 [facility], Pcp [address] [place] [address] PCP - General Internal Medicine 01/08/22 Isela Roe MD 300 [facility] 154 [place] [address] Specialist Cardiology 10/28/20 documented as of this encounter
--- OUTSIDE RECORDS SUMMARY | 2024-07-07 18:29 | XMS_ITS | Encounter Summary ---
Author Organization [facility] Address [address] [place] [address] Care Team Providers Care Truck Greaser Name Role Phone Janessa Langley MD Primary Care Provider Mark Thomas MD Primary Care Provider Unav ailable Janessa Langley MD Primary Care Provider Unavaila Layla Juarez MD Primary Care Provider [phone] Amparo Pressley MD Primary Care Provider Un available Isela Roe MD Unavailable [phone] Layla Segal MD Primary Care Provider [phone] [facility] Primary Care Provider Unavailabl e Encounter Details Date Type Department Care Team Description 09/11/2017 Keno Writer / Runner Report Medical Records [address] [place] [address] Chris Gerber MD Social History Tobacco Use [...] on filedocumented in this encounter Care Teams Truck Greaser Relationship Specialty Start Date End Date Janessa Langley MD PCP - General Internal Medicine 12/02/15 11/03/19 [place] Caraballo MD PCP - General Family Practice 11/04/19 04/13/20 Janessa Langley MD PCP - General Internal Medicine 04/14/20 08/08/20 Layla Segal MD [address] [place] [address] PCP - General Internal Medicine 08/09/20 10/19/20 Amparo Pressley MD [address] [place] [address] PCP - General Internal Medicine 10/20/20 12/12/20 Layla Segal MD [address] [place] [address] PCP - General Internal Medicine 12/13/20 01/07/22 [facility], Pcp [address] [address] PCP - General Internal Medicine 01/08/22 Isela Roe MD 300 [facility] [address] [place] [address] Specialist Cardiology 10/28/20 documented as of this encounter
--- OUTSIDE RECORDS SUMMARY | 2024-07-07 18:29 | XMS_ITS | Encounter Summary ---
Author Organization [facility] Address [address] [place] [address] Care Team Providers Care Correctional Facility Nurse Name Role Phone Janessa Langley MD Primary Care Provider Mark Thomas MD Primary Care Provider Unav ailable Janessa Langley MD Primary Care Provider Unavaila Layla Juarez MD Primary Care Provider [phone] Amparo Pressley MD Primary Care Provider Un available Isela Roe MD Unavailable [phone] Layla Segal MD Primary Care Provider [phone] [facility] Primary Care Provider [facility] e Encounter Details Date Type Department Care Team Description 08/09/2017 [facility] Controlled Substance Contract Medical Records [address] [place] [address] Abstract, Provider Social History Tobacco Use Types [...] on filedocumented in this encounter Care Teams Correctional Facility Nurse Relationship Specialty Start Date End Date Janessa Langley MD PCP - General Internal Medicine 12/02/15 11/03/19 Mark Caraballo MD PCP - General Family Practice 11/04/19 04/13/20 Janessa Langley MD PCP - General Internal Medicine 04/14/20 08/08/20 Layla Segal MD [address] [place] [address] PCP - General Internal Medicine 08/09/20 10/19/20 Amparo Pressley MD [address] [place] [address] PCP - General Internal Medicine 10/20/20 12/12/20 Layla Segal MD [address] [place] [address] PCP - General Internal Medicine 12/13/20 01/07/22 [facility], Pcp [address] [address] PCP - General Internal Medicine 01/08/22 Isela Roe MD 300 [facility] [address] [place] [address] Specialist Cardiology 10/28/20 documented as of this encounter
--- OUTSIDE RECORDS SUMMARY | 2024-07-07 18:29 | XMS_ITS | Encounter Summary ---
Author Organization [facility] Address [address] [place] [address] Care Team Providers Care Cotton Ginner Helper Name Role Phone Amparo Pressley MD Primary Care Provider Un available Mark Alfonso MD Primary Care Provider Unavail able Janessa Langley MD Primary Care Provider Unavaila Mark Valera MD Primary Care Provider Unavail able Janessa Langley MD Primary Care Provider Unavaila Mark Mayo MD Primary Care Provider Unav ailable Janessa Langley MD Primary Care Provider Unavaila Layla Juarez MD Primary Care Provider [phone] Amparo Pressley MD Primary Care Provider Un available Isela Roe MD Unavailable [phone] Layla Segal MD Primary Care Provider [phone] [facility], Pcp Primary Care Provider Unavailabl e Encounter Details Date Type Department Care Team Description 09/29/2010 Greeting Card Maker Report Medical Records [address] [place] [address] Ilan Escobedo Social History Tobacco Use Types [...] on filedocumented in this encounter Care Teams Cotton Ginner Helper Relationship Specialty Start Date End Date [...] Medicine 04/14/20 08/08/20 Layla Segal MD [address] [place] [address] PCP - General Internal Medicine 08/09/20 10/19/20 Amparo Pressley MD PCP - General Internal Medicine 10/20/20 Layla Segal MD [address] [place] [address] PCP - General Internal Medicine 12/13/20 01/07/22 [facility], Pcp [address] [address] PCP - General Internal Medicine 01/08/22 Isela Roe MD [address] [address] Specialist Cardiology 10/28/20 documented as of this encounter
--- OUTSIDE RECORDS SUMMARY | 2024-07-07 18:29 | XMS_ITS | Encounter Summary ---
Author Organization [facility] Address [address] [place] [address] Care Team Providers Care Stonemason Supervisor Name Role Phone Janessa Langley MD Primary Care Provider UnavailMark Guadarrama MD Primary Care Provider Unav ailable Janessa Langley MD Primary Care Provider Unavaila Layla Juarez MD Primary Care Provider [phone] Amparo Pressley MD Primary Care Provider Un available Isela Roe MD Unavailable [phone] Layla Segla MD Primary Care Provider [phone] [facility] Primary Care Provider Unavailabl e Encounter Details Date Type Department Care Team Description 06/21/2016 Oil And Gas Superintendent Report Medical Records [address] [place] [address] Morales Richards MD [address] [place] [phone] Social History Tobacco Use Types Packs/Day [...] on filedocumented in this encounter Care Teams Stonemason Supervisor Relationship Specialty Start Date End Date Janessa Langley MD PCP - General Internal Medicine 12/02/15 11/03/19 Mark Caraballo MD PCP - General Family Practice 11/04/19 04/13/20 Janessa Langley MD PCP - General Internal Medicine 04/14/20 08/08/20 Layla Segal MD [address] [place] [address] PCP - General Internal Medicine 08/09/20 10/19/20 Amparo Pressley MD [address] [place] [address] PCP - General Internal Medicine 10/20/20 12/12/20 Layla Segal MD [address] [place] [address] PCP - General Internal Medicine 12/13/20 01/07/22 [facility], Pcp [address] [address] PCP - General Internal Medicine 01/08/22 Isela Roe MD 300 [facility] [address] [place] [address] Specialist Cardiology 10/28/20 documented as of this encounter
--- OUTSIDE RECORDS SUMMARY | 2024-07-07 18:29 | XMS_ITS | Encounter Summary ---
Author Organization [facility] Address [address] [place] [address] Care Team Providers Care Breaker Machine Tender Name Role Phone Isela Roe MD Unavailable [phone] Layla Segal MD Primary Care Provider [phone] [facility], Pcp Primary Care Provider Unavailabl e Encounter Details Date Type Department Care Team Description 09/05/2021 Orders Only Medical Records [address] [place] [address] Yomi Garcia, PA-C [address] [place] [address] Social History Tobacco Use Types Packs/Day Years [...] on filedocumented in this encounter Care Teams Breaker Machine Tender Relationship Specialty Start Date End Date Layla Segal MD [address] [place] [address] PCP - General Internal Medicine 12/13/20 01/07/[address] [address] PCP - General Internal Medicine 01/08/22 Isela Roe MD [address] [place] [address] Specialist Cardiology 10/28/20 documented as of this encounter
--- OUTSIDE RECORDS SUMMARY | 2024-07-07 18:29 | XMS_ITS | Encounter Summary ---
Author Organization [facility] Address [address] [place] [address] Care Team Providers Care Lead Section Supervisor Name Role Phone Janessa Langley MD Primary Care Provider Mark Thomas MD Primary Care Provider Unav ailable Janessa Langley MD Primary Care Provider Unavaila Layla Juarez MD Primary Care Provider [phone] Amparo Pressley MD Primary Care Provider Un available Isela Roe MD Unavailable [phone] Layla Segal MD Primary Care Provider [phone] [facility] Primary Care Provider Unavailabl e Encounter Details Date Type Department Care Team Description 05/31/2017 Release of Information Medical Records [address] [place] [address] Abstract, Provider Social History Tobacco Use Types [...] on filedocumented in this encounter Care Teams Lead Section Supervisor Relationship Specialty Start Date End Date Janessa Langley MD PCP - General Internal Medicine 12/02/15 11/03/19 Mark Caraballo MD PCP - General Family Practice 11/04/19 04/13/20 Janessa Langley MD PCP - General Internal Medicine 04/14/20 08/08/20 Layla Segal MD [address] [place] [address] PCP - General Internal Medicine 08/09/20 10/19/20 Amapro Pressley MD [address] [place] [address] PCP - General Internal Medicine 10/20/20 12/12/20 Layla Segal MD [address] [place] [address] PCP - General Internal Medicine 12/13/20 01/07/22 [facility], Pcp 300 [facility] [address] [place] [address] PCP - General Internal Medicine 01/08/22 Isela Roe MD 300 [facility] [address] [place] [address] Specialist Cardiology 10/28/20 documented as of this encounter
--- OUTSIDE RECORDS SUMMARY | 2024-07-07 18:29 | XMS_ITS | Encounter Summary ---
Author Organization [facility] Address [address] [place] [address] Care Team Providers Care Paper Supervisor Name Role Phone Janessa Langley MD Primary Care Provider UnavailMark Guadarrama MD Primary Care Provider Unav ailable Janessa Langley MD Primary Care Provider Unavaila Layla Juarez MD Primary Care Provider [phone] Amparo Pressley MD Primary Care Provider Un available Isela Roe MD Unavailable [phone] Layla Segal MD Primary Care Provider [phone] [facility] Primary Care Provider Unavailabl e Encounter Details Date Type Department Care Team Description 05/24/2016 SCAN Medical Records [address] [place] [address] Boubacar Browning MD [address] [place] [phone] Social History Tobacco Use Types Packs/Day [...] on filedocumented in this encounter Care Teams Paper Supervisor Relationship Specialty Start Date End Date Janessa Langley MD PCP - General Internal Medicine 12/02/15 11/03/19 Mark Caraballo MD PCP - General Family Practice 11/04/19 04/13/20 Janessa Langley MD PCP - General Internal Medicine 04/14/20 08/08/20 Layla Segal MD [address] [place] [address] PCP - General Internal Medicine 08/09/20 10/19/20 Amparo Pressley MD [address] [place] [address] PCP - General Internal Medicine 10/20/20 12/12/20 Layla Segal MD [address] [place] [address] PCP - General Internal Medicine 12/13/20 01/07/22 [facility], Pcp [address] [address] PCP - General Internal Medicine 01/08/22 Isela Roe MD [address] [address] Specialist Cardiology 10/28/20 documented as of this encounter
--- OUTSIDE RECORDS SUMMARY | 2024-07-07 18:29 | XMS_ITS | Encounter Summary ---
Author Organization [facility] Address [address] [place] [address] Care Team Providers Care Toe Lining Closer Name Role Phone Janessa Langley MD Primary Care Provider Mark Thomas MD Primary Care Provider Unav ailable Janessa Langley MD Primary Care Provider Unavaila Layla Juarez MD Primary Care Provider [phone] Amparo Pressley MD Primary Care Provider Un available Isela Roe MD Unavailable [phone] Layla Segal MD Primary Care Provider [phone] Counts Include 234 Beds At [facility], [facility] Primary Care Provider Unavailabl e Reason for Visit * Reason Onset Date Comments injection 05/24/2017 Encounter Details Date Type Department Care Team Description 05/24/2017 Telephone Physiatry - [address] [phone] Christopher Wong DO injection Social History Tobacco [...] on filedocumented in this encounter Care Teams Toe Lining Closer Relationship Specialty Start Date End Date Janessa Langley MD PCP - General Internal Medicine 12/02/15 11/03/19 Mark Caraballo MD PCP - General Family Practice 11/04/19 04/13/20 Janessa Langley MD PCP - General Internal Medicine 04/14/20 08/08/20 Layla Segal MD [address] [place] [address] PCP - General Internal Medicine 08/09/20 10/19/20 Amparo Pressley MD [address] [place] [address] PCP - General Internal Medicine 10/20/20 12/12/20 Layla Segal MD [address] [place] [address] PCP - General Internal Medicine 12/13/20 01/07/22 Counts Include 234 Beds At [facility], Pcp [address] [address] PCP - General Internal Medicine 01/08/22 Isela Roe MD [address] [address] Specialist Cardiology 10/28/20 documented as of this encounter
--- OUTSIDE RECORDS SUMMARY | 2024-07-07 18:29 | XMS_ITS | Encounter Summary ---
[facility] Organization [facility] Address [address] [place] [address] Care Team Providers Care Raveler Name Role Phone Janessa Langley MD Primary Care Provider Mark Thomas MD Primary Care Provider Unav ailable Janessa Langley MD Primary Care Provider Unavaila Layla Juarez MD Primary Care Provider [phone] Amparo Pressley MD Primary Care Provider Un available Isela Roe MD Unavailable [phone] Layal Segal MD Primary Care Provider [phone] [facility] Primary Care Provider Unavailabl e Encounter Details Date Type Department Care Team Description 10/13/2018 Release of Information Medical Records [address] [place] [address] Abstract, Provider Social History Tobacco Use Types [...] on filedocumented in this encounter Care Teams Raveler Relationship Specialty Start Date End Date Janessa Langley MD PCP - General Internal Medicine 12/02/15 11/03/19 Mark Caraballo MD PCP - General Family Practice 11/04/19 04/13/20 Janessa Langley MD PCP - General Internal Medicine 04/14/20 08/08/20 Layla Segal MD [address] [place] [address] PCP - General Internal Medicine 08/09/20 10/19/20 Amparo Pressley MD [address] [place] [address] PCP - General Internal Medicine 10/20/20 12/12/20 Layla Segal MD [address] [place] [address] PCP - General Internal Medicine 12/13/20 01/07/22 [facility], Pcp [address] [address] PCP - General Internal Medicine 01/08/22 Isela Roe MD 300 [facility] [address] [place] [address] Specialist Cardiology 10/28/20 documented as of this encounter
--- OUTSIDE RECORDS SUMMARY | 2024-07-07 18:29 | XMS_ITS | Encounter Summary ---
Author Organization [facility] Address [address] [place] [address] Care Team Providers Care Boot Trimmer Name Role Phone Isela Roe MD Unavailable [phone] Layla Segal MD Primary Care Provider [phone] [facility], Pcp Primary Care Provider Unavailabl e Encounter Details Date Type Department Care Team Description 08/08/2021 Fagot Maker Report Medical Records [address] [place] [address] Social History Tobacco Use Types Packs/Day Years [...] on filedocumented in this encounter Care Teams Boot Trimmer Relationship Specialty Start Date End Date Layla Segal MD [address] [place] [address] PCP - General Internal Medicine 12/13/20 01/07/22 [facility], Pcp [address] [place] [address] PCP - General Internal Medicine 01/08/22 Isela Roe MD [address] [place] [address] Specialist Cardiology 10/28/20 documented as of this encounter
--- OUTSIDE RECORDS SUMMARY | 2024-07-07 18:29 | XMS_ITS | Encounter Summary ---
Author Organization [facility] Address [address] [place] [address] Care Team Providers Care Consulting Senior Practice Director Name Role Phone Janessa Langley MD Primary Care Provider Mark Thomas MD Primary Care Provider Unav ailable Janessa Langley MD Primary Care Provider Unavaila Layla Juarez MD Primary Care Provider [phone] Amparo Pressley MD Primary Care Provider Un available Isela Roe MD Unavailable [phone] Layla Segal MD Primary Care Provider [phone] [facility], [facility] Primary Care Provider Unavailabl e Encounter Details Date Type Department Care Team Description 05/08/2016 Pt. Non Urgent Medical Question Medicine/Pediatrics - [address] [phone] Janessa Langley MD Social History Tobacco Use [...] on filedocumented in this encounter Care Teams Consulting Senior Practice Director Relationship Specialty Start Date End Date Janessa Langley MD PCP - General Internal Medicine 12/02/15 11/03/19 Mark Caraballo MD PCP - General Family Practice 11/04/19 04/13/20 Janessa Langley MD PCP - General Internal Medicine 04/14/20 08/08/20 Layla Segal MD [address] [place] [address] PCP - General Internal Medicine 08/09/20 10/19/20 Amparo Pressley MD [address] [place] [address] PCP - General Internal Medicine 10/20/20 12/12/20 Layla Segal MD [address] [place] [address] PCP - General Internal Medicine 12/13/20 01/07/22 [facility], Pcp [address] [address] PCP - General Internal Medicine 01/08/22 Isela Roe MD [address] [address] Specialist Cardiology 10/28/20 documented as of this encounter
--- OUTSIDE RECORDS SUMMARY | 2024-07-07 18:29 | XMS_ITS | Encounter Summary ---
Author Organization [facility] Address [address] [place] [address] Care Team Providers Care Regulatory Manager Name Role Phone Janessa Langley MD Primary Care Provider Mark Thomas MD Primary Care Provider Unav ailable Janessa Langley MD Primary Care Provider Unavaila Layla Juarez MD Primary Care Provider [phone] Amparo Pressley MD Primary Care Provider Un available Isela Roe MD Unavailable [phone] Layla Segal MD Primary Care Provider [phone] [facility] Primary Care Provider Unavailabl e Reason for Visit * Reason Onset Date Comments Appointment-Internal Referral 10/01/2017 Encounter Details Date Type Department Care Team Description 10/01/2017 Telephone Medicine/Pediatrics - [address] [phone] Janessa Langley MD Appointment-Internal Referral Social History Tobacco Use Types Packs/Day Years Used Date Smoking Tobacco: Former Cigarettes 0.3 Q uit: 05/02/2015 Smokeless Tobacco: Never Alcohol Use Standard Drinks/Week Comments No 0 (1 standard drink = 0.6 oz pur e alcohol) Sex Assigned at Date Recorded Not on file documented as of this encounter Miscellaneous Notes * Telephone Encounter - Jen Yarbrough - 10/01/2017 11:31 AM EDT We are unable to reach your patient to schedule their referral for the Dining Services Manager Department. Numerous attempts have been made and a letter has been sent to the patient. The patient is being taken off the work que at this time. Thank you, OBGYN department documented in this encounter Plan of Treatment Not on file documented as of this encounter Visit Diagnoses Not on filedocumented in this encounter Care Teams Regulatory Manager Relationship Specialty Start Date End Date Janessa Langley MD PCP - General Internal Medicine 12/02/15 11/03/19 Mark Caraballo MD PCP - General Family Practice 11/04/19 04/13/20 Janessa Langley MD PCP - General Internal Medicine 04/14/20 08/08/20 Layla Segal MD [address] [place] [address] PCP - General Internal Medicine 08/09/20 10/19/20 Amparo Pressley MD [address] [place] [address] PCP - General Internal Medicine 10/20/20 12/12/20 Layla Segal MD [address] [place] [address] PCP - General Internal Medicine 12/13/20 01/07/22 [facility], Pcp [address] [address] PCP - General Internal Medicine 01/08/22 Isela Roe MD [address] [address] Specialist Cardiology 10/28/20 documented as of this encounter
--- OUTSIDE RECORDS SUMMARY | 2024-07-07 18:29 | XMS_ITS | Encounter Summary ---
Author Organization [facility] Address [address] [place] [address] Care Team Providers Care Associate Justice Name Role Phone Isela Roe MD Unavailable [phone] Layla Segal MD Primary Care Provider [phone] [facility], Pcp Primary Care Provider Unavailabl e Encounter Details Date Type Department Care Team Description 11/17/2021 Orders Only Adult Medicine [address] [phone] She Ornelas PA-C [address] [place] [address] [phone] Social History Tobacco Use Types Packs/Day Years [...] filedocumented in this encounter Care Teams Associate Justice Relationship Specialty Start Date End Date Layla Segal MD [address] [place] [address] [id number] PCP - General Internal Medicine 12/13/20 01/07/22 [facility], Pcp [address] [place] [address] PCP - General Internal Medicine 01/08/22 Isela Roe MD 300 [facility] 154 [place] [address] Specialist Cardiology 10/28/20 documented as of this encounter
--- OUTSIDE RECORDS SUMMARY | 2024-07-07 18:29 | XMS_ITS | Encounter Summary ---
[facility] Address [address] [place] [address] Care Team Providers Care Steel Roller Name Role Phone Janessa Langley MD Primary Care Provider Mark Thomas MD Primary Care Provider Unav ailable Janessa Langley MD Primary Care Provider Unavaila Layla Juarez MD Primary Care Provider [phone] Amparo Pressley MD Primary Care Provider Un available Isela Roe MD Unavailable [phone] Layla Segal MD Primary Care Provider [phone] [facility] Primary Care Provider Unavailabl e Encounter Details Date Type Department Care Team Description 03/23/2016 Packing Machine Feeder Report Medical Records [address] [place] [address] Abstract, Provider Social History Tobacco Use Types [...] on filedocumented in this encounter Care Teams Steel Roller Relationship Specialty Start Date End Date Janessa Langley MD PCP - General Internal Medicine 12/02/15 11/03/19 Mark Caraballo MD PCP - General Family Practice 11/04/19 04/13/20 Janessa Langley MD PCP - General Internal Medicine 04/14/20 08/08/20 Layla Segal MD [address] [place] [address] PCP - General Internal Medicine 08/09/20 10/19/20 Amparo Pressley MD [address] [place] [address] PCP - General Internal Medicine 10/20/20 12/12/20 Layla Segal MD [address] [place] [address] PCP - General Internal Medicine 12/13/20 01/07/22 [facility], Pcp 300 [facility] [address] [place] [address] PCP - General Internal Medicine 01/08/22 Isela Roe MD 300 [facility] [address] [place] [address] Specialist Cardiology 10/28/20 documented as of this encounter
--- OUTSIDE RECORDS SUMMARY | 2024-07-07 18:29 | XMS_ITS | Encounter Summary ---
Author Organization [facility] Address [address] [place] [address] Care Team Providers Care Food Demonstrator Name Role Phone Janessa Langley MD Primary Care Provider Mark Thomas MD Primary Care Provider Unav ailable Janessa Langley MD Primary Care Provider Unavaila Layla Juarez MD Primary Care Provider [phone] Amparo Pressley MD Primary Care Provider Un available Isela Roe MD Unavailable [phone] Layla Segla MD Primary Care Provider [phone] [facility] Primary Care Provider Unavailabl e Encounter Details Date Type Department Care Team Description 05/25/2016 SCAN Medical Records [address] [place] [address] Abstract, Provider Social History Tobacco Use Types [...] on filedocumented in this encounter Care Teams Food Demonstrator Relationship Specialty Start Date End Date Janessa Langley MD PCP - General Internal Medicine 12/02/15 11/03/19 Mark Caraballo MD PCP - General Family Practice 11/04/19 04/13/20 Janessa Langley MD PCP - General Internal Medicine 04/14/20 08/08/20 Layla Sgeal MD [address] [place] [address] PCP - General Internal Medicine 08/09/20 10/19/20 Amparo Pressley MD [address] [place] [address] PCP - General Internal Medicine 10/20/20 12/12/20 Layla Segal MD [address] [place] [address] PCP - General Internal Medicine 12/13/20 01/07/22 [facility], Pcp [address] [address] PCP - General Internal Medicine 01/08/22 Isela Roe MD 300 [facility] 154 [place] [address] Specialist Cardiology 10/28/20 documented as of this encounter
--- OUTSIDE RECORDS SUMMARY | 2024-07-07 18:29 | XMS_ITS | Encounter Summary ---
Author Organization [facility] Address [address] [place] [address] Care Team Providers Care Federal Mediation Commissioner Name Role Phone Janessa Langley MD Primary Care Provider Mark Thomas MD Primary Care Provider Unav ailable Janessa Langley MD Primary Care Provider Unavaila Layla Juarez MD Primary Care Provider [phone] Amparo Pressley MD Primary Care Provider Un available Isela Roe MD Unavailable [phone] Layla Segal MD Primary Care Provider [phone] [facility] Primary Care Provider Unavailabl e Encounter Details Date Type Department Care Team Description 04/21/2019 Scientific Manager Report Medical Records [address] [place] [address] Chris Gill MD Social History Tobacco Use [...] on filedocumented in this encounter Care Teams Federal Mediation Commissioner Relationship Specialty Start Date End Date Janessa Langley MD PCP - General Internal Medicine 12/02/15 11/03/19 Mark Caraballo MD PCP - General Family Practice 11/04/19 04/13/20 Janessa Langley MD PCP - General Internal Medicine 04/14/20 08/08/20 Layla Segal MD [address] [place] [address] PCP - General Internal Medicine 08/09/20 10/19/20 Amparo Pressley MD [address] [place] [address] PCP - General Internal Medicine 10/20/20 12/12/20 Layla Segal MD [address] [place] [address] PCP - General Internal Medicine 12/13/20 01/07/22 [facility], Pcp [address] [address] PCP - General Internal Medicine 01/08/22 Isela Roe MD 300 [facility] 154 [place] [address] Specialist Cardiology 10/28/20 documented as of this encounter
--- OUTSIDE RECORDS SUMMARY | 2024-07-07 18:30 | XMS_ITS | Encounter Summary ---
Author Organization [facility] Address [address] [place] [address] Care Team Providers Care Travel Services Professional Name Role Phone Isela Roe MD Unavailable [phone] [facility], Pcp Primary Care Provider Unavailabl e Reason for Visit * Reason Comments E-prescribe Rx Request Encounter Details Date Type Department Care Team Description 06/06/2022 Refill Pulmonology - [place] [address] [facility] [address] [place] [address] Morales Richards MD [address] [place] [address] E-prescribe Rx Request Social History Tobacco Use Types Packs/Day Years Used Date Smoking Tobacco: Former Cigarettes 0.3 26 0 04/01/1989 - 05/02/2015 Smokeless Tobacco: Never Alcohol Use Standard Drinks/Week Comments No 0 (1 standard drink = 0.6 oz pur e alcohol) Sex Assigned at Date Recorded Not on file documented as of this encounter Miscellaneous Notes * Telephone Encounter - Alicia Quintana - 06/07/2022 8:58 AM EST Pt is also requesting Teselin tablets as well. Due to her allergies acting up. * Telephone Encounter - Alicia Quintana - 06/07/2022 8:54 AM EST Patient would like script to be: E-PRESCRIBED/FAXED TO PHARMACY WHEN WAS THE PATIENT'S LAST APPOINTMENT IN ADULT MEDICINE? 03/16/22 WHEN WAS THE LAST TIME THE PATIENT SAW THEIR PCP? Same as above Does patient have an upcoming appointment? Yes 09/19/22 (THE MEDICATION REQUESTED IS ON THE MED [...] complicated documented in this encounter Care Teams Travel Services Professional Relationship Specialty Start Date End Date Community, Pcp [address] [address] PCP - General Internal Medicine 01/08/22 Isela Roe MD 300 [facility] 154 [place] [address] Specialist Cardiology 10/28/20 documented as of this encounter
--- OUTSIDE RECORDS SUMMARY | 2024-07-07 18:30 | XMS_ITS | Encounter Summary ---
Author Organization [facility] Address [address] [place] [address] Care Team Providers Care Supervisor Waterproofing Name Role Phone Janessa Langley MD Primary Care Provider Mark Thomas MD Primary Care Provider Unav ailable Janessa Langley MD Primary Care Provider Unavaila Layla Juarez MD Primary Care Provider [phone] Amparo Pressley MD Primary Care Provider Un available Isela Roe MD Unavailable [phone] Layla Segal MD Primary Care Provider [phone] [facility] [place] [place] Primary Care Provider Unavailabl e Encounter Details Date Type Department Care Team Description 02/17/2018 Certified Energy Manager Report Medical Records [address] [place] [address] [facility] Tobacco Use Types Packs/Day [...] filedocumented in this encounter Care Teams Supervisor Waterproofing Relationship Specialty Start Date End Date Janessa Langley MD PCP - General Internal Medicine 12/02/15 11/03/19 Mark Caraballo MD PCP - General Family Practice 11/04/19 04/13/20 Janessa Langley MD PCP - General Internal Medicine 04/14/20 08/08/20 Layla Segal MD [address] [place] [address] PCP - General Internal Medicine 08/09/20 10/19/20 Amparo Pressley MD [address] [place] [address] PCP - General Internal Medicine 10/20/20 12/12/20 Layla Segal MD [address] [place] [address] PCP - General Internal Medicine 12/13/20 01/07/22 [facility], Pcp [address] [address] PCP - General Internal Medicine 01/08/22 Isela Roe MD 300 [facility] 154 [place] [address] Specialist Cardiology 10/28/20 documented as of this encounter
--- OUTSIDE RECORDS SUMMARY | 2024-07-07 18:30 | XMS_ITS | Encounter Summary ---
Author Organization [facility] Address [address] [place] [address] Care Team Providers Care Spot Sprayer Name Role Phone Mark Alfonso MD Primary Care Provider Unavail able Janessa Langley MD Primary Care Provider Unavaila Mark Valera MD Primary Care Provider Unavail able Janessa Langley MD Primary Care Provider Unavaila Mark Mayo MD Primary Care Provider Unav ailable Janessa Langley MD Primary Care Provider Unavaila Layla Juarez MD Primary Care Provider [phone] Amparo Pressley MD Primary Care Provider Un available Isela Roe MD Unavailable [phone] Layla Segal MD Primary Care Provider [phone] [facility], Pcp Primary Care Provider Unavailabl e Reason for Visit * Reason Onset Date Comments Error 03/23/2014 Encounter Details Date Type Department Care Team Description 03/23/2014 Refill Adult Medicine [address] [address] Mark Alfonso MD Error Social History Tobacco [...] on filedocumented in this encounter Care Teams Spot Sprayer Relationship Specialty Start Date End Date Mark [...] Medicine 04/14/20 08/08/20 Layla Segal MD [address] [place] [address] PCP - General Internal Medicine 08/09/20 10/19/20 Amparo Pressley MD [address] [place] [address] PCP - General Internal Medicine 10/20/20 12/12/20 Layla Segal MD [address] [place] [address] PCP - General Internal Medicine 12/13/20 01/07/22 [facility], Pcp [address] [address] PCP - General Internal Medicine 01/08/22 Isela Roe MD [address] [address] Specialist Cardiology 10/28/20 documented as of this encounter
--- OUTSIDE RECORDS SUMMARY | 2024-07-07 18:30 | XMS_ITS | Encounter Summary ---
Author Organization [facility] Address [address] [place] [address] Care Team Providers Care Hospital Orderly Name Role Phone Janessa Langley MD Primary Care Provider Mark Thomas MD Primary Care Provider Unav ailable Janessa Langley MD Primary Care Provider Unavaila Layla Juarez MD Primary Care Provider Amparo Pressley MD Primary Care Provider Un available Isela Roe MD Unavailable [phone] Layla Segal MD Primary Care Provider [phone] [facility] Primary Care Provider Unavailabl e Reason for Visit * Reason Onset Date Comments Medication 04/23/2016 Encounter Details Date Type Department Care Team Description 04/23/2016 Telephone Medicine/Pediatrics - [address] [phone] Janessa Langley MD Medication Social History Tobacco [...] on filedocumented in this encounter Care Teams Hospital Orderly Relationship Specialty Start Date End Date Janessa Lagnley MD PCP - General Internal Medicine 12/02/15 11/03/19 Mark Caraballo MD PCP - General Family Practice 11/04/19 04/13/20 Janessa Langley MD PCP - General Internal Medicine 04/14/20 08/08/20 Layla Segal MD [address] [place] [address] PCP - General Internal Medicine 08/09/20 10/19/20 Amparo Pressley MD [address] [place] [address] PCP - General Internal Medicine 10/20/20 12/12/20 Layla Segal MD [address] [place] [address] PCP - General Internal Medicine 12/13/20 01/07/22 [facility], Pcp 300 [facility] 154 [place] [address] PCP - General Internal Medicine 01/08/22 Isela Roe MD 300 [facility] [address] [place] [address] Specialist Cardiology 10/28/20 documented as of this encounter
--- OUTSIDE RECORDS SUMMARY | 2024-07-07 18:30 | XMS_ITS | Clinical Summary ---
Author Organization [facility] Address [address] [place] [address] Care Team Providers Care Circus Roustabout Name Role Phone Isela Roe MD Unavailable [phone] Community, Pcp Primary Care Provider Unavailabl e Allergies Active Allergy Reactions Severity Noted Date Comments Amoxicillin 06/23/2018 Azithromycin Nausea and Vomiting Medium 05/04/2010 Cats Hives/Urticaria 12/08/2014 Cefuroxime Rash/Dermatitis 09/06/2016 Cheese Hives/Urticaria 12/08/2014 Portuguese cheese, itchy throat Propoxyphene N-Apap Hives/Urticaria 03/23/2008 Erythromycin Anaphylaxis 03/23/2008 Lasix Palpitations High 06/23/2018 Exacerbated POTS, mild HI afterwards Penicillins 11/08/2015 Rabbit Protein Anaphylaxis 12/08/2014 [...] sleep apnea mild AHI 12 09/30 Overview: [facility] Polysomnogram: Date 10/19/2018; Wt 375#; BMI [...] 06/19/2022 06/19/2021, 02/19/2019, 05/08/2017, Additional history exists BMI CHECK/ADVISE 04/01/2024 09/19/2022, , 09/01/2021, Additional history exists DEPRESSION SCREENING/FOLLOWUP 04/01/2024, 08/31/2021, 06/21/2021, Additional history exists SOCIAL NEEDS SCREENING 04/01/2024 INFLUENZA (Season Ended) 2024 019 (External Completion of Vaccination per patient), 01/20/2018, 11/28/2016, Additional history exists DTAP/TDAP/TD (2 - Td or Tdap) 06/22/2025 (Exception), 03/23/2010 PNEUMOCOCCAL VACCINE FOR HIG H RISK PATIENTS (#2) 01/24/2037 12/02/2015 Care Teams Circus Roustabout Relationship Specialty Start Date End Date Community, Pcp [address] [place] [address] PCP - General Internal Medicine 01/08/22 Isela Roe MD [address] [facility] [address] [place] [address] Specialist Cardiology 10/28/20
--- OUTSIDE RECORDS SUMMARY | 2024-07-07 18:30 | XMS_ITS | Encounter Summary ---
Author Organization Formerly [facility] Address [address] [place] [address] Care Team Providers Care Spray Crew Name Role Phone Janessa Langley MD Primary Care Provider UnavailMark Guadarrama MD Primary Care Provider Unav ailable Janessa Langley MD Primary Care Provider Unavaila Layla Juarez MD Primary Care Provider [phone] Amparo Pressley MD Primary Care Provider Un available Isela Roe MD Unavailable [phone] Layla Segal MD Primary Care Provider [phone] [facility], [facility] Primary Care Provider Unavailabl e Reason for Visit * Reason Comments E-prescribe Rx Request Encounter Details Date Type Department Care Team Description 01/30/2018 Refill Medicine/Pediatrics - [address] [id number] Janessa Langley MD E-prescribe Rx Request Social [...] N/A Patients current insurance carrier is: Payor: [employer] / Plan: [employer] / Product Type: MEDICAID RISK documented in this encounter Plan of Treatment Not on file documented as of this encounter Visit Diagnoses Diagnosis Mild intermittent asthma without complication Unspecified asthma documented in this encounter Care Teams Spray Crew Relationship Specialty Start Date End Date Janessa Langley MD PCP - General Internal Medicine 12/02/15 11/03/19 Mark Caraballo MD PCP - General Family Practice 11/04/19 04/13/20 Janessa Langley MD PCP - General Internal Medicine 04/14/20 08/08/20 Layla Segal MD [address] [place] [address] PCP - General Internal Medicine 08/09/20 10/19/20 Amparo Pressley MD [address] [place] [address] PCP - General Internal Medicine 10/20/20 12/12/20 Layla Segal MD [address] [place] [address] PCP - General Internal Medicine 12/13/20 01/07/22 [facility] [address] [address] PCP - General Internal Medicine 01/08/22 Isela Roe MD [address] [address] Specialist Cardiology 10/28/20 documented as of this encounter
--- OUTSIDE RECORDS SUMMARY | 2024-07-07 18:30 | XMS_ITS | Encounter Summary ---
Author Organization [facility] Address [address] [place] [address] Care Team Providers Care Solar Thermal Technician Name Role Phone Janessa Langley MD Primary Care Provider UnavailMark Guadarrama MD Primary Care Provider Unav ailable Janessa Langley MD Primary Care Provider Unavaila Layla Juarez MD Primary Care Provider [phone] Amparo Pressley MD Primary Care Provider Un available Isela Roe MD Unavailable [phone] Layla Segal MD Primary Care Provider [phone] [facility], [facility] Primary Care Provider Unavailabl e Encounter Details Date Type Department Care Team Description 08/19/2019 Hospital Medical Records [address] [place] [address] Social History Tobacco Use Types Packs/Day Years [...] on filedocumented in this encounter Care Teams Solar Thermal Technician Relationship Specialty Start Date End Date Janessa Langley MD PCP - General Internal Medicine 12/02/15 11/03/19 Mark Caraballo MD PCP - General Family Practice 11/04/19 04/13/20 Janessa Langley MD PCP - General Internal Medicine 04/14/20 08/08/20 Layla Segal MD [address] [place] [address] PCP - General Internal Medicine 08/09/20 10/19/20 Amparo Pressley MD [address] [place] [address] PCP - General Internal Medicine 10/20/20 12/12/20 Layla Segal MD [address] [place] [address] PCP - General Internal Medicine 12/13/20 01/07/22 [facility], Pcp [address] [address] PCP - General Internal Medicine 01/08/22 Isela Roe MD 300 [facility] [address] [place] [address] Specialist Cardiology 10/28/20 documented as of this encounter
--- OUTSIDE RECORDS SUMMARY | 2024-07-07 18:30 | XMS_ITS | Encounter Summary ---
Author Organization [facility] Address [address] [place] [address] Care Team Providers Care Boom Truck Driver Name Role Phone Amparo Pressley MD Primary Care Provider Un available Mark Alfonso MD Primary Care Provider Unavail able Janessa Langley MD Primary Care Provider Unavaila Mark Valera MD Primary Care Provider Unavail able Janessa Langley MD Primary Care Provider Unavaila Mark Mayo MD Primary Care Provider Unav ailable Janessa Langley MD Primary Care Provider Unavaila Layla Juarez MD Primary Care Provider [phone] Amparo Pressley MD Primary Care Provider Un available Isela Roe MD Unavailable [phone] Layla Segal MD Primary Care Provider [phone] [facility], Pcp Primary Care Provider Unavailabl e Encounter Details Date Type Department Care Team Description 12/17/2011 Plastics Factory Worker Report Medical Records [address] [place] [address] Randolph Whitlock MD Social History Tobacco Use [...] on filedocumented in this encounter Care Teams Boom Truck Driver Relationship Specialty Start Date End Date Amparo [...] PCP - General Internal Medicine 04/14/20 08/08/20 Lalya Segal MD [address] [place] [address] PCP - General Internal Medicine 08/09/20 10/19/20 Amparo Pressley MD PCP - General Internal Medicine 10/20/20 Layla Segal MD [address] [place] [address] PCP - General Internal Medicine 12/13/20 01/07/22 [facility], Pcp [address] [address] PCP - General Internal Medicine 01/08/22 Isela Roe MD [address] [address] Specialist Cardiology 10/28/20 documented as of this encounter
--- OUTSIDE RECORDS SUMMARY | 2024-07-07 18:30 | XMS_ITS | Encounter Summary ---
Author Organization [facility] Address [address] [place] [address] Care Team Providers Care Field Applications Specialist Name Role Phone Amparo Pressley MD Primary Care Provider Un available Mark Alfonso MD Primary Care Provider Unavail able Janessa Langley MD Primary Care Provider Unavaila Mark Valera MD Primary Care Provider Unavail able Janessa Langley MD Primary Care Provider Unavaila Mark Mayo MD Primary Care Provider Unav ailable Janessa Langley MD Primary Care Provider Unavaila Layla Juarez MD Primary Care Provider [phone] Amparo Pressley MD Primary Care Provider Un available Isela Roe MD Unavailable [phone] Layla Segal MD Primary Care Provider [phone] [facility], Pcp Primary Care Provider Unavailabl e Encounter Details Date Type Department Care Team Description 09/07/2009 Hospital Medical Records [address] [place] [address] Garrett Guerrero Social History Tobacco Use Types Packs/Day Years [...] filedocumented in this encounter Care Teams Field Applications Specialist Relationship Specialty Start Date End Date Amparo [...] Medicine 04/14/20 08/08/20 Layla Segal MD [address] [place] [address] PCP - General Internal Medicine 08/09/20 10/19/20 Amparo Pressley MD PCP - General Internal Medicine 10/20/20 Layla Segal MD [address] [place] [address] PCP - General Internal Medicine 12/13/20 01/07/22 [facility], Pcp [address] [address] PCP - General Internal Medicine 01/08/22 Isela Roe MD [address] [address] Specialist Cardiology 10/28/20 documented as of this encounter
--- OUTSIDE RECORDS SUMMARY | 2024-07-07 18:30 | XMS_ITS | Encounter Summary ---
Author Organization [facility] Address [address] [place] [address] Care Team Providers Care Oil Burner Technician Name Role Phone Mark Alfonso MD Primary Care Provider Unavail able Janessa Langley MD Primary Care Provider Unavaila Mark Valera MD Primary Care Provider Unavail able Janessa Langley MD Primary Care Provider Unavaila Mark Mayo MD Primary Care Provider Unav ailable Janessa Langley MD Primary Care Provider Unavaila Layla Juarez MD Primary Care Provider [phone] Amparo Pressley MD Primary Care Provider Un available Isela Roe MD Unavailable [phone] Layla Segal MD Primary Care Provider [phone] [facility], Pcp Primary Care Provider Unavailabl e Encounter Details Date Type Department Care Team Description 02/25/2015 Technology Coach Report Medical Records [address] [place] [address] Social History Tobacco Use Types Packs/Day Years [...] on filedocumented in this encounter Care Teams Oil Burner Technician Relationship Specialty Start Date End Date [...] Medicine 04/14/20 08/08/20 Layla Segal MD [address] [place] [address] PCP - General Internal Medicine 08/09/20 10/19/20 Amparo Pressley MD [address] [place] [address] PCP - General Internal Medicine 10/20/20 12/12/20 Layla Segal MD [address] [place] [address] PCP - General Internal Medicine 12/13/20 01/07/22 [facility], Pcp [address] [address] PCP - General Internal Medicine 01/08/22 Isela Roe MD [address] [address] Specialist Cardiology 10/28/20 documented as of this encounter
--- OUTSIDE RECORDS SUMMARY | 2024-07-07 18:30 | XMS_ITS | Encounter Summary ---
Author Organization [facility] Address [address] [place] [address] Care Team Providers Care Water Hauler Name Role Phone Janessa Langley MD Primary Care Provider Mark Thomas MD Primary Care Provider Unav ailable Janessa Langley MD Primary Care Provider Unavaila Layla Juarez MD Primary Care Provider [phone] Amparo Pressley MD Primary Care Provider Un available Isela Roe MD Unavailable [phone] Layla Segal MD Primary Care Provider [phone] [facility] Primary Care Provider Unavailabl e Encounter Details Date Type Department Care Team Description 08/31/2016 Transfer Records Medical Records [address] [place] [address] Abstract, Provider Social History Tobacco Use Types [...] on filedocumented in this encounter Care Teams Water Hauler Relationship Specialty Start Date End Date Janessa Langley MD PCP - General Internal Medicine 12/02/15 11/03/19 Mark Caraballo MD PCP - General Family Practice 11/04/19 04/13/20 Janessa Langley MD PCP - General Internal Medicine 04/14/20 08/08/20 Layla Segal MD [address] [place] [address] PCP - General Internal Medicine 08/09/20 10/19/20 Amparo Pressley MD [address] [place] [address] PCP - General Internal Medicine 10/20/20 12/12/20 Layla Segal MD [address] [place] [address] PCP - General Internal Medicine 12/13/20 01/07/22 [facility], Pcp 300 [facility] [address] [place] [address] PCP - General Internal Medicine 01/08/22 Isela Roe MD 300 [facility] [address] [place] [address] Specialist Cardiology 10/28/20 documented as of this encounter
--- OUTSIDE RECORDS SUMMARY | 2024-07-07 18:30 | XMS_ITS | Encounter Summary ---
Author Organization [facility] Address [address] [place] [address] Care Team Providers Care Project Development Leader Name Role Phone Layla Segal MD Primary Care Provider [phone] Amparo Pressley MD Primary Care Provider Un available Isela Roe MD Unavailable [phone] Layla Segal MD Primary Care Provider [phone] [facility] Primary Care Provider Unavailabl e Encounter Details Date Type Department Care Team Description 09/27/2020 Seismology Teacher Report Medical Records [address] [place] [address] [facility] Social History Tobacco Use Types Packs/Day Years [...] filedocumented in this encounter Care Teams Project Development Leader Relationship Specialty Start Date End Date Layla Segal MD [address] [place], [place] [id number] PCP - General Internal Medicine 08/09/20 10/19/20 Amparo Pressley MD [address] [place], [place] [address] PCP - General Internal Medicine 10/20/20 12/12/20 Layla Segal MD [address] [place] [address] PCP - General Internal Medicine 12/13/20 01/07/22 [facility], Pcp 300 [facility] [address] [place] [address] PCP - General Internal Medicine 01/08/22 Isela Roe MD 300 [facility] [address] [place] [address] Specialist Cardiology 10/28/20 documented as of this encounter
--- OUTSIDE RECORDS SUMMARY | 2024-07-07 18:30 | XMS_ITS | Encounter Summary ---
Author Organization [facility] Address [address] [place] [address] Care Team Providers Care Fish Farm Laborer Name Role Phone Layla Segal MD Primary Care Provider Amparo Pressley MD Primary Care Provider Un available Isela Roe MD Unavailable [phone] Layla Segal MD Primary Care Provider [phone] [facility], [facility] Primary Care Provider Unavailabl e Encounter Details Date Type Department Care Team Description 10/19/2020 SCAN Medical Records [address] [place] [address] Layla Segal MD [address] [place] [id number] Social History Tobacco Use Types Packs/Day Years [...] filedocumented in this encounter Care Teams Fish Farm Laborer Relationship Specialty Start Date End Date Layla Segal MD [address] [place] [address] PCP - General Internal Medicine 08/09/20 10/19/20 Amparo Pressley MD [address] [place] [address] PCP - General Internal Medicine 10/20/20 12/12/20 Layla Segal MD [address] [place] [address] PCP - General Internal Medicine 12/13/20 01/07/22 [facility], Pcp [address] [address] PCP - General Internal Medicine 01/08/22 Isela Roe MD 300 [facility] [address] [place] [address] Specialist Cardiology 10/28/20 documented as of this encounter
--- OUTSIDE RECORDS SUMMARY | 2024-07-07 18:30 | XMS_ITS | Encounter Summary ---
Author Organization [facility] Address [address] [place] [address] Care Team Providers Care Typing Element Machine Operator Name Role Phone Amparo Pressley MD Primary Care Provider Un available Mark Alfonso MD Primary Care Provider Unavail able Janessa Langley MD Primary Care Provider Unavaila Mark Valera MD Primary Care Provider Unavail able Janessa Langley MD Primary Care Provider Unavaila Mark Mayo MD Primary Care Provider Unav ailable Janessa Langley MD Primary Care Provider Unavaila Layla Juarez MD Primary Care Provider [phone] Amparo Pressley MD Primary Care Provider Un available Isela Roe MD Unavailable [phone] Layla Segal MD Primary Care Provider [phone] [facility], Pcp Primary Care Provider Unavailabl e Encounter Details Date Type Department Care Team Description 06/24/2009 [facility] Medical Records [address] [place] [address] Chandra Garzon MD Social History Tobacco Use [...] on filedocumented in this encounter Care Teams Typing Element Machine Operator Relationship Specialty Start Date End [...] Medicine 04/14/20 08/08/20 Layla Segal MD [address] [place] [address] PCP - General Internal Medicine 08/09/20 10/19/20 Amparo Pressley MD PCP - General Internal Medicine 10/20/20 Layla Segal MD [address] [place] [address] PCP - General Internal Medicine 12/13/20 01/07/22 [facility], Pcp [address] [address] PCP - General Internal Medicine 01/08/22 Isela Roe MD [address] [address] Specialist Cardiology 10/28/20 documented as of this encounter
--- OUTSIDE RECORDS SUMMARY | 2024-07-07 18:30 | XMS_ITS | Encounter Summary ---
Author Organization [facility] Address [address] [place] [address] Care Team Providers Care Vending Machine Technician Name Role Phone Amparo rPessley MD Primary Care Provider Un available Mark Alfonso MD Primary Care Provider Unavail able Janessa Langley MD Primary Care Provider Unavaila Mark Valera MD Primary Care Provider Unavail able Janessa Langley MD Primary Care Provider Unavaila Mark Mayo MD Primary Care Provider Unav ailable Janessa Langley MD Primary Care Provider Unavaila Layla Juarez MD Primary Care Provider [phone] Amparo Pressley MD Primary Care Provider Un available Isela Roe MD Unavailable [phone] Layla Segal MD Primary Care Provider [phone] [facility], Pcp Primary Care Provider Unavailabl e Encounter Details Date Type Department Care Team Description 02/29/2012 Sueding And Buffing Machine Operator Report Medical Records [address] [place], [place] [id number] [place] [address] Social History Tobacco Use Types Packs/Day Years [...] in this encounter Care Teams Vending Machine Technician Relationship Specialty Start Date End Date [...] Medicine 04/14/20 08/08/20 Layla Segal MD [address] [place] [address] PCP - General Internal Medicine 08/09/20 10/19/20 Amparo Pressley MD PCP - General Internal Medicine 10/20/20 Layla Segal MD [address] [place] [address] PCP - General Internal Medicine 12/13/20 01/07/22 [facility], Pcp [address] [address] PCP - General Internal Medicine 01/08/22 Isela Roe MD 300 [facility] [address] [place] [address] Specialist Cardiology 10/28/20 documented as of this encounter
--- OUTSIDE RECORDS SUMMARY | 2024-07-07 18:30 | XMS_ITS | Encounter Summary ---
[facility] Address [address] [place] [address] Care Team Providers Care Room Cooler Installer Name Role Phone Janessa Langley MD Primary Care Provider Mark Thomas MD Primary Care Provider Unav ailable Janessa Langley MD Primary Care Provider Unavaila Layla Juarez MD Primary Care Provider [phone] Amparo Pressley MD Primary Care Provider Un available Isela Roe MD Unavailable [phone] Layla Segal MD Primary Care Provider [phone] [facility] Primary Care Provider [facility] Encounter Details Date Type Department Care Team Description 08/13/2016 Walk In Clinic Visit Medical Records [address] [place] [address] Abstract, Provider Social History Tobacco Use Types [...] on filedocumented in this encounter Care Teams Room Cooler Installer Relationship Specialty Start Date End Date Janessa Langley MD PCP - General Internal Medicine 12/02/15 11/03/19 Mark Caraballo MD PCP - General Family Practice 11/04/19 04/13/20 Janessa Langley MD PCP - General Internal Medicine 04/14/20 08/08/20 Layla Segal MD [address] [place] [address] PCP - General Internal Medicine 08/09/20 10/19/20 Amparo Pressley MD [address] [place] [address] PCP - General Internal Medicine 10/20/20 12/12/20 Layla Segal MD [address] [place] [address] PCP - General Internal Medicine 12/13/20 01/07/22 [facility], Pcp [address] [address] PCP - General Internal Medicine 01/08/22 Isela Roe MD 300 [facility] [address] [place] [address] Specialist Cardiology 10/28/20 documented as of this encounter
--- OUTSIDE RECORDS SUMMARY | 2024-07-07 18:30 | XMS_ITS | Encounter Summary ---
Author Organization [facility] Address [address] [place] [address] Care Team Providers Care Outer Diameter Grinder Name Role Phone Mark Alfonso MD Primary Care Provider Unavail able Janessa Langley MD Primary Care Provider Unavaila Mark Valera MD Primary Care Provider Unavail able Janessa Langley MD Primary Care Provider Unavaila Mark Mayo MD Primary Care Provider Unav ailable Janessa Langley MD Primary Care Provider Unavaila Layla Juarez MD Primary Care Provider [phone] Amparo Pressley MD Primary Care Provider Un available Isela Roe MD Unavailable [phone] Layla Segal MD Primary Care Provider [phone] [facility], Pcp Primary Care Provider Unavailabl e Encounter Details Date Type Department Care Team Description 05/28/2014 [facility] Medical Records [address] [place] [address] Chris Gerber MD Social History Tobacco Use [...] on filedocumented in this encounter Care Teams Outer Diameter Grinder Relationship Specialty Start Date End Date Mark [...] Medicine 04/14/20 08/08/20 Layla Segal MD [address] [place] [address] PCP - General Internal Medicine 08/09/20 10/19/20 Amparo Pressley MD [address] [place] [address] PCP - General Internal Medicine 10/20/20 12/12/20 Layla Segal MD [address] [place] [address] PCP - General Internal Medicine 12/13/20 01/07/22 [facility], Pcp [address] [address] PCP - General Internal Medicine 01/08/22 Isela Roe MD [address] [address] Specialist Cardiology 10/28/20 documented as of this encounter
--- OUTSIDE RECORDS SUMMARY | 2024-07-07 18:30 | XMS_ITS | Encounter Summary ---
Author Organization [facility] Address [address] [place] [address] Care Team Providers Care Engineering Inspection Assistant Name Role Phone Janessa Langley MD Primary Care Provider UnavailMark Guadarrama MD Primary Care Provider Unav ailable Janessa Langley MD Primary Care Provider Unavaila Layla Juarez MD Primary Care Provider [phone] Amparo Pressley MD Primary Care Provider Un available Isela Roe MD Unavailable [phone] Layla Segal MD Primary Care Provider [phone] [facility], [facility] Primary Care Provider Unavailabl e Encounter Details Date Type Department Care Team Description 01/07/2018 Orders Only Medicine/Pediatrics - [address] [address] Uma Martinez PA-C Supraclavicular mass; History of thyroid cancer Social History Tobacco [...] Procedure Name Priority Date/Time Associated Diagnosis Comments CONTRAST CAT SCAN OF NECK TISSUE STAT 01/02/2018 Supraclavicular mass History of thyroid cancer documented in this encounter Results * CONTRAST CAT SCAN OF NECK TISSUE (01/02/2018) Uma Martinez PA-C CT SCANS documented in this encounter Visit Diagnoses Diagnosis Supraclavicular mass Swelling, mass, or lump in chest History of thyroid cancer Personal history of malignant neoplasm of thyroid documented in this encounter Care Teams Engineering Inspection Assistant Relationship Specialty Start Date End Date Janessa Langley MD PCP - General Internal Medicine 12/02/15 11/03/19 Mark Caraballo MD PCP - General Family Practice 11/04/19 04/13/20 Janessa Langley MD PCP - General Internal Medicine 04/14/20 08/08/20 Layla Segal MD [address] [place] [address] PCP - General Internal Medicine 08/09/20 10/19/20 Amparo Pressley MD [address] [place] [address] PCP - General Internal Medicine 10/20/20 12/12/20 Layla Segal MD [address] [place] [address] PCP - General Internal Medicine 12/13/20 01/07/22 [facility], Pcp [address] [address] PCP - General Internal Medicine 01/08/22 Isela Roe MD [address] [address] Specialist Cardiology 10/28/20 documented as of this encounter
--- OUTSIDE RECORDS SUMMARY | 2024-07-07 18:30 | XMS_ITS | Encounter Summary ---
Author Organization [facility] Address [address] [place] [address] Care Team Providers Care Regulatory Submissions Associate Name Role Phone Janessa Langley MD Primary Care Provider Mark Thomas MD Primary Care Provider Unav ailable Janessa Langley MD Primary Care Provider Unavaila Layla Juarez MD Primary Care Provider [phone] Amparo Pressley MD Primary Care Provider Un available Isela Roe MD Unavailable [phone] Layla Segal MD Primary Care Provider [phone] [facility] Primary Care Provider Unavailabl e Encounter Details Date Type Department Care Team Description 01/08/2018 Release of Information Medical Records [address] [place] [address] Abstract, Provider Social History Tobacco Use Types [...] filedocumented in this encounter Care Teams Regulatory Submissions Associate Relationship Specialty Start Date End Date Janesas Langley MD PCP - General Internal Medicine 12/02/15 11/03/19 Mark Caraballo MD PCP - General Family Practice 11/04/19 04/13/20 Janessa Langley MD PCP - General Internal Medicine 04/14/20 08/08/20 Layla Segal MD [address] [place] [address] PCP - General Internal Medicine 08/09/20 10/19/20 Amparo Pressley MD [address] [place] [address] PCP - General Internal Medicine 10/20/20 12/12/20 Layla Segal MD [address] [place] [address] PCP - General Internal Medicine 12/13/20 01/07/22 [facility], Pcp 300 [facility] [address] [place] [address] PCP - General Internal Medicine 01/08/22 Isela Roe MD 300 [facility] [address] [place] [address] Specialist Cardiology 10/28/20 documented as of this encounter
--- OUTSIDE RECORDS SUMMARY | 2024-07-07 18:30 | XMS_ITS | Encounter Summary ---
Author Organization [facility] Address [address] [place] [address] Care Team Providers Care Career Development Manager Name Role Phone Janessa Langley MD Primary Care Provider Mark Thomas MD Primary Care Provider Unav ailable Janessa Langley MD Primary Care Provider Unavaila Layla Juarez MD Primary Care Provider [phone] Amparo Pressley MD Primary Care Provider Un available Isela Roe MD Unavailable [phone] Layla Segal MD Primary Care Provider [phone] [facility] Primary Care Provider Unavailabl e Encounter Details Date Type Department Care Team Description 09/11/2016 University Professor Report Medical Records [address] [place] [address] Abdirahman Kamara Social History Tobacco Use Types [...] filedocumented in this encounter Care Teams Career Development Manager Relationship Specialty Start Date End Date Janessa Langley MD PCP - General Internal Medicine 12/02/15 11/03/19 Mark Caraballo MD PCP - General Family Practice 11/04/19 04/13/20 Janessa Langley MD PCP - General Internal Medicine 04/14/20 08/08/20 Layla Segal MD [address] [place] [address] PCP - General Internal Medicine 08/09/20 10/19/20 Amparo Pressley MD [address] [place] [address] PCP - General Internal Medicine 10/20/20 12/12/20 Layla Segal MD [address] [place] [address] PCP - General Internal Medicine 12/13/20 01/07/22 [facility], Pcp [address] [address] PCP - General Internal Medicine 01/08/22 Isela Roe MD 300 [facility] 154 [place] [address] Specialist Cardiology 10/28/20 documented as of this encounter
--- OUTSIDE RECORDS SUMMARY | 2024-07-07 18:30 | XMS_ITS | Encounter Summary ---
Author Organization [facility] Address [address] [place] [address] Care Team Providers Care Site Safety Manager Name Role Phone Janessa Langley MD Primary Care Provider UnavailMark Guadarrama MD Primary Care Provider Unav ailable Janessa Langley MD Primary Care Provider Unavaila Layla Juarez MD Primary Care Provider [phone] Amparo Pressley MD Primary Care Provider Un available Isela Roe MD Unavailable [phone] Layla Segal MD Primary Care Provider [phone] [facility] Primary Care Provider Unavailabl e Reason for Visit * Reason Onset Date Comments Exceptional Children Teacher Feedback 01/30/2017 MRI Lumbar spine Encounter Details Date Type Department Care Team Description 01/30/2017 Telephone Physiatry - [address] [address] Christopher Wong DO Cro Feedback (MRI Lumbar [...] PM EDT Order and notes faxed to [facility]. Notification letter mailed to patient. Office will contact patient to book appointment. documented in this encounter Plan of Treatment Not on file documented as of this encounter Visit Diagnoses Not on filedocumented in this encounter Care Teams Site Safety Manager Relationship Specialty Start Date End Date Janessa Langley MD PCP - General Internal Medicine 12/02/15 11/03/19 Mark Caraballo MD PCP - General Family Practice 11/04/19 04/13/20 Janessa Langley MD PCP - General Internal Medicine 04/14/20 08/08/20 Layla Segal MD [address] [place] [address] PCP - General Internal Medicine 08/09/20 10/19/20 Amparo Pressley MD [address] [place] [address] PCP - General Internal Medicine 10/20/20 12/12/20 Layla Segal MD [address] [place] [address] PCP - General Internal Medicine 12/13/20 01/07/22 [facility], Pcp [address] [address] PCP - General Internal Medicine 01/08/22 Isela Roe MD [address] [address] Specialist Cardiology 10/28/20 documented as of this encounter
--- OUTSIDE RECORDS SUMMARY | 2024-07-07 18:30 | XMS_ITS | Encounter Summary ---
Author [facility] Address [address] [place] [address] Care Team Providers Care Manager Commodities Name Role Phone Janessa Langley MD Primary Care Provider Mark Thomas MD Primary Care Provider Unav ailable Janessa Langley MD Primary Care Provider Unavaila Layla Juarez MD Primary Care Provider [phone] Amparo Pressley MD Primary Care Provider Un available Isela Roe MD Unavailable [phone] Layla Segal MD Primary Care Provider [phone] [facility] Primary Care Provider Unavailabl e Encounter Details Date Type Department Care Team Description 01/28/2017 Release of Information Medical Records [address] [place] [address] Abstract, Provider Social History Tobacco Use Types [...] filedocumented in this encounter Care Teams Manager Commodities Relationship Specialty Start Date End Date Janessa Langley MD PCP - General Internal Medicine 12/02/15 11/03/19 Mark Caraballo MD PCP - General Family Practice 11/04/19 04/13/20 Janessa Langley MD PCP - General Internal Medicine 04/14/20 08/08/20 Layla Segal MD [address] [place] [address] PCP - General Internal Medicine 08/09/20 10/19/20 Amparo Pressley MD [address] [place] [address] PCP - General Internal Medicine 10/20/20 12/12/20 Layla Segal MD [address] [place] [address] PCP - General Internal Medicine 12/13/20 01/07/22 Replaced By [facility], Pcp 300 [facility] 154 [place] [address] PCP - General Internal Medicine 01/08/22 Isela Roe MD 300 [facility] 154 [place] [address] Specialist Cardiology 10/28/20 documented as of this encounter
--- OUTSIDE RECORDS SUMMARY | 2024-07-07 18:30 | XMS_ITS | Encounter Summary ---
Author Organization [facility] Address [address] [place] [address] Care Team Providers Care Office Machines Teacher Name Role Phone Janessa Langley MD Primary Care Provider UnavailMark Guadarrama MD Primary Care Provider Unav ailable Janessa Langley MD Primary Care Provider Unavaila Layla Juarez MD Primary Care Provider [phone] Amparo Pressley MD Primary Care Provider Un available Isela Roe MD Unavailable [phone] Layla Segal MD Primary Care Provider [phone] [facility], [facility] Primary Care Provider Unavailabl e Reason for Visit * Reason Onset Date Comments Provider Call Back 02/06/2017 Encounter Details Date Type Department Care Team Description 02/06/2017 Telephone Physiatry - [address] [address] Christopher Wong DO Provider Call Back Social [...] filedocumented in this encounter Care Teams Office Machines Teacher Relationship Specialty Start Date End Date Janessa Langley MD PCP - General Internal Medicine 12/02/15 11/03/19 Mark Caraballo MD PCP - General Family Practice 11/04/19 04/13/20 Janessa Lanlgey MD PCP - General Internal Medicine 04/14/20 08/08/20 Layla Segal MD [address] [place] [address] PCP - General Internal Medicine 08/09/20 10/19/20 Amparo Pressley MD [address] [place] [address] PCP - General Internal Medicine 10/20/20 12/12/20 Layla Segal MD [address] [place] [address] PCP - General Internal Medicine 12/13/20 01/07/22 [facility], Pcp [address] [address] PCP - General Internal Medicine 01/08/22 Isela Roe MD 300 [facility] [address] [place] [address] Specialist Cardiology 10/28/20 documented as of this encounter
--- OUTSIDE RECORDS SUMMARY | 2024-07-07 18:30 | XMS_ITS | Encounter Summary ---
Author Organization [facility] Address [address] [place] [address] Care Team Providers Care Order Picker/Assembler Name Role Phone Amparo Pressley MD Primary Care Provider Un available Mark Alfonso MD Primary Care Provider Unavail able Janessa Langley MD Primary Care Provider Unavaila Mark Valera MD Primary Care Provider Unavail able Janessa Langley MD Primary Care Provider Unavaila Mark Mayo MD Primary Care Provider Unav ailable Janessa Langley MD Primary Care Provider Unavaila Layla Juarez MD Primary Care Provider [phone] Amparo Pressley MD Primary Care Provider Un available Isela Roe MD Unavailable [phone] Layla Segal MD Primary Care Provider [phone] [facility], Pcp Primary Care Provider Unavailabl e Encounter Details Date Type Department Care Team Description 09/20/2009 Realtime Reporter Report Medical Records [address] [place] [address] Janessa Cuenca MD Social History Tobacco Use [...] on filedocumented in this encounter Care Teams Order Picker/Assembler Relationship Specialty Start Date End Date Amparo [...] Medicine 04/14/20 08/08/20 Layla Segal MD [address] [place] [address] PCP - General Internal Medicine 08/09/20 10/19/20 Amparo Pressley MD PCP - General Internal Medicine 10/20/20 Layla Segal MD [address] [place] [address] PCP - General Internal Medicine 12/13/20 01/07/22 [facility], Pcp [address] [address] PCP - General Internal Medicine 01/08/22 Isela Roe MD [address] [address] Specialist Cardiology 10/28/20 documented as of this encounter
--- OUTSIDE RECORDS SUMMARY | 2024-07-07 18:30 | XMS_ITS | Encounter Summary ---
Author Organization [facility] Address [address] [place] [address] Care Team Providers Care Mandolin Repairer Name Role Phone Amparo Pressley MD Primary Care Provider Un available Mark Alfonso MD Primary Care Provider Unavail able Janessa Langley MD Primary Care Provider Unavaila Mark Valera MD Primary Care Provider Unavail able Janessa Langley MD Primary Care Provider Unavaila Mark Mayo MD Primary Care Provider Unav ailable Janessa Langley MD Primary Care Provider Unavaila Layla Juarez MD Primary Care Provider [phone] Amparo Pressley MD Primary Care Provider Un available Isela Roe MD Unavailable [phone] Layla Segal MD Primary Care Provider [phone] [facility], Pcp Primary Care Provider Unavailabl e Encounter Details Date Type Department Care Team Description 05/23/2011 Controlled Substance Plan Medical Records [address] [place] [address] Abstract, Provider Social History Tobacco Use Types [...] on filedocumented in this encounter Care Teams Mandolin Repairer Relationship Specialty Start Date End Date [...] Medicine 04/14/20 08/08/20 Layla Segal MD [address] [place] [address] PCP - General Internal Medicine 08/09/20 10/19/20 Amparo Pressley MD PCP - General Internal Medicine 10/20/20 Layla Segal MD [address] [place] [address] PCP - General Internal Medicine 12/13/20 01/07/22 [facility], Pcp [address] [address] PCP - General Internal Medicine 01/08/22 Isela Roe MD 300 [facility] 154 [place] [address] Specialist Cardiology 10/28/20 documented as of this encounter
--- OUTSIDE RECORDS SUMMARY | 2024-07-07 18:30 | XMS_ITS | Encounter Summary ---
Author Organization [facility] Address [address] [place] [address] Care Team Providers Care Technical Mgr Name Role Phone Isela Roe MD Unavailable [phone] [facility], Pcp Primary Care Provider Unavailabl e Reason for Visit * Reason Comments E-prescribe Rx Request Encounter Details Date Type Department Care Team Description 06/05/2023 Refill Pulmonology - [place] [address] [facility] [address] [place] [address] Morales Richards MD [address] [place] [address] E-prescribe Rx Request Social History [...] * Telephone Encounter - Kathy Chambers - 06/07/2023 10:57 AM EST ALOK 09/19/22 NOV due, unable to lvm, ring then busy documented in this encounter Plan of Treatment Not on file documented as of this encounter Visit Diagnoses Diagnosis Moderate persistent asthma, unspecified whether complicated documented in this encounter Care Teams Technical Mgr Relationship Specialty Start Date End Date [facility], Pcp [address] [place] [address] PCP - General Internal Medicine 01/08/22 Isela Roe MD 300 [facility] [address] [place] [address] Specialist Cardiology 10/28/20 documented as of this encounter
--- OUTSIDE RECORDS SUMMARY | 2024-07-07 18:30 | XMS_ITS | Encounter Summary ---
Author Organization [facility] Address [address] [place] [address] Care Team Providers Care Welder/Fabricator Name Role Phone Janessa Langley MD Primary Care Provider Mark Thomas MD Primary Care Provider Unav ailable Janessa Langley MD Primary Care Provider Unavaila Layla Juarez MD Primary Care Provider [phone] Amparo Pressley MD Primary Care Provider Un available Isela Roe MD Unavailable [phone] Layla Segal MD Primary Care Provider [phone] [facility], [facility] Primary Care Provider Unavailabl e Encounter Details Date Type Department Care Team Description 01/03/[address] [id number] Janessa Langley MD Social History Tobacco Use [...] on filedocumented in this encounter Care Teams Welder/Fabricator Relationship Specialty Start Date End Date Janessa Langley MD PCP - General Internal Medicine 12/02/15 11/03/19 Mark Caraballo MD PCP - General Family Practice 11/04/19 04/13/20 Janessa Langley MD PCP - General Internal Medicine 04/14/20 08/08/20 Layla Segal MD [address] [place] [address] PCP - General Internal Medicine 08/09/20 10/19/20 Amparo Pressley MD [address] [place] [address] PCP - General Internal Medicine 10/20/20 12/12/20 Layla Segal MD [address] [place] [address] PCP - General Internal Medicine 12/13/20 01/07/22 [facility], Pcp [address] [address] PCP - General Internal Medicine 01/08/22 Isela Roe MD [address] [address] Specialist Cardiology 10/28/20 documented as of this encounter
--- OUTSIDE RECORDS SUMMARY | 2024-07-07 18:30 | XMS_ITS | Encounter Summary ---
Author Organization [facility] Address [address] [place] [address] Care Team Providers Care Army Officer Name Role Phone Janessa Langley MD Primary Care Provider UnavailMark Guadarrama MD Primary Care Provider Unav ailable Janessa Langley MD Primary Care Provider Unavaila Layla Juarez MD Primary Care Provider [phone] Amparo Pressley MD Primary Care Provider Un available Isela Roe MD Unavailable [phone] Layla Segal MD Primary Care Provider [phone] [facility] Primary Care Provider Unavailabl e Reason for Visit * Reason Comments E-prescribe Rx Request Encounter Details Date Type Department Care Team Description 11/02/2019 Refill Pulmonology - [place] [address] [facility] [address] [place] [address] Morales Richards MD [address] [place] [address] E-prescribe Rx Request Social History [...] persistent documented in this encounter Care Teams Army Officer Relationship Specialty Start Date End Date Janessa Langley MD PCP - General Internal Medicine 12/02/15 11/03/19 Mark Caraballo MD PCP - General Family Practice 11/04/19 04/13/20 Janessa Langley MD PCP - General Internal Medicine 04/14/20 08/08/20 Layla Segal MD [address] [place] [address] PCP - General Internal Medicine 08/09/20 10/19/20 Amparo Pressley MD [address] [place] [address] PCP - General Internal Medicine 10/20/20 12/12/20 Layla Segal MD [address] [place] [address] PCP - General Internal Medicine 12/13/20 01/07/22 [facility], Pcp [address] [address] PCP - General Internal Medicine 01/08/22 Isela Roe MD [address] [address] Specialist Cardiology 10/28/20 documented as of this encounter
--- OUTSIDE RECORDS SUMMARY | 2024-07-07 18:30 | XMS_ITS | Encounter Summary ---
Author Organization [facility] Address [address] [place] [address] Care Team Providers Care Social Services Technician Name Role Phone Janessa Langley MD Primary Care Provider UnavailMark Guadarrama MD Primary Care Provider Unav ailable Janessa Langley MD Primary Care Provider Unavaila Layla Juarez MD Primary Care Provider [phone] Amparo Pressley MD Primary Care Provider Un available Isela Roe MD Unavailable [phone] Layla Segal MD Primary Care Provider [phone] [facility], [facility] Primary Care Provider Unavailabl e Encounter Details Date Type Department Care Team Description 06/09/2019 Orders Only Medicine/Pediatrics - [address] [address] Janessa Langley MD Other screening mammogram Social [...] mammogram documented in this encounter Care Teams Social Services Technician Relationship Specialty Start Date End Date Janessa Langley MD PCP - General Internal Medicine 12/02/15 11/03/19 Mark Caraballo MD PCP - General Family Practice 11/04/19 04/13/20 Janessa Langley MD PCP - General Internal Medicine 04/14/20 08/08/20 Layla Segal MD [address] [place] [address] PCP - General Internal Medicine 08/09/20 10/19/20 Amparo Pressley MD [address] [place] [address] PCP - General Internal Medicine 10/20/20 12/12/20 Layla Segal MD [address] [place] [address] PCP - General Internal Medicine 12/13/20 01/07/22 [facility], Pcp [address] [address] PCP - General Internal Medicine 01/08/22 Isela Roe MD [address] [address] Specialist Cardiology 10/28/20 documented as of this encounter
--- OUTSIDE RECORDS SUMMARY | 2024-07-07 18:30 | XMS_ITS | Encounter Summary ---
Author Organization [facility] Address [address] [place] [address] Care Team Providers Care Machine Riveter Name Role Phone Janessa Langley MD Primary Care Provider UnavailMark Guadarrama MD Primary Care Provider Unav ailable Janessa Langley MD Primary Care Provider Unavaila Layla Juarez MD Primary Care Provider [phone] Amparo Pressley MD Primary Care Provider Un available Isela Roe MD Unavailable [phone] Layla Segal MD Primary Care Provider [phone] [facility], [facility] Primary Care Provider Unavailabl e Encounter Details Date Type Department Care Team Description 11/23/2017 Pt. 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 If I need to get an MRI,I go to the open one at [facility]. The pain is progressively getting wore and [...] filedocumented in this encounter Care Teams Machine Riveter Relationship Specialty Start Date End Date Janessa Langley MD PCP - General Internal Medicine 12/02/15 11/03/19 Mark Caraballo MD PCP - General Family Practice 11/04/19 04/13/20 Janessa Langley MD PCP - General Internal Medicine 04/14/20 08/08/20 Layla Segal MD [address] [place] [address] PCP - General Internal Medicine 08/09/20 10/19/20 Amparo Pressley MD [address] [place] [address] PCP - General Internal Medicine 10/20/20 12/12/20 Layla Segal MD [address] [place] [address] PCP - General Internal Medicine 12/13/20 01/07/22 [facility], Pcp [address] [address] PCP - General Internal Medicine 01/08/22 Islea Roe MD [address] [address] Specialist Cardiology 10/28/20 documented as of this encounter
--- OUTSIDE RECORDS SUMMARY | 2024-07-07 18:30 | XMS_ITS | Encounter Summary ---
Author [facility] Address [address] [place] [address] Care Team Providers Care Loading Manager Name Role Phone Isela Roe MD Unavailable [phone] [facility], Pcp Primary Care Provider Unavailabl e Encounter Details Date Type Department Care Team Description 05/31/2022 Aviation Project Manager Report Medical Records [address] [place] [address] Social History Tobacco Use Types Packs/Day Years [...] on filedocumented in this encounter Care Teams Loading Manager Relationship Specialty Start Date End Date Community, Pcp 300 [facility] [address] [place] [address] PCP - General Internal Medicine 01/08/22 Isela Roe MD 300 [facility] [address] [place] [address] Specialist Cardiology 10/28/20 documented as of this encounter
--- OUTSIDE RECORDS SUMMARY | 2024-07-07 18:30 | XMS_ITS | Encounter Summary ---
[facility] [address] [place] [address] Care Team Providers Care Web Application Tester Name Role Phone Janessa Langley MD Primary Care Provider Mark Thomas MD Primary Care Provider Unav ailable Janessa Langley MD Primary Care Provider Unavaila Layla Juarez MD Primary Care Provider [phone] Amparo Pressley MD Primary Care Provider Un available Isela Roe MD Unavailable Layla Segal MD Primary Care Provider [phone] [facility] Primary Care Provider Unavailabl e Encounter Details Date Type Department Care Team Description 11/13/2017 [place] Controlled Substance Contract Medical Records [address] [place] [address] Abstract, Provider Social History Tobacco Use Types [...] filedocumented in this encounter Care Teams Web Application Tester Relationship Specialty Start Date End Date Janessa Langley MD PCP - General Internal Medicine 12/02/15 11/03/19 Mark Caraballo MD PCP - General Family Practice 11/04/19 04/13/20 Janessa Langley MD PCP - General Internal Medicine 04/14/20 08/08/20 Layla Segal MD [address] [place] [address] PCP - General Internal Medicine 08/09/20 10/19/20 Amparo Pressley MD [address] [place] [address] PCP - General Internal Medicine 10/20/20 12/12/20 Layla Segal MD [address] [place] [address] PCP - General Internal Medicine 12/13/20 01/07/22 [facility], Pcp [address] [address] PCP - General Internal Medicine 01/08/22 Isela Roe MD 300 [facility] [address] [place] [address] Specialist Cardiology 10/28/20 documented as of this encounter
--- OUTSIDE RECORDS SUMMARY | 2024-07-07 18:30 | XMS_ITS | Encounter Summary ---
Author Organization [facility] Address [address] [place] [address] Care Team Providers Care Beam Doffer Name Role Phone Janessa Langley MD Primary Care Provider UnavailMark Guadarrama MD Primary Care Provider Unav ailable Janessa Langley MD Primary Care Provider Unavaila Layla Juarez MD Primary Care Provider [phone] Amparo Pressley MD Primary Care Provider Un available Isela Roe MD Unavailable [phone] Layla Segal MD Primary Care Provider [phone] [facility] Primary Care Provider Unavailabl e Reason for Visit * Reason Onset Date Comments Advice 05/12/2019 Encounter Details Date Type Department Care Team Description 05/12/2019 Telephone General Surgery - [place] [facility] [address] [place] [id number] Jessie Nicholas MS,RDN,LDN [address] [address] Advice Social History Tobacco Use [...] Telephone Encounter - Jessie Nicholas MS,RDN,LDN - 05/12/2019 3:[address] spoke with patient on today's date. Pt having other health issues she needs to tend to and has started doing Weight Watchers, which she finds helpful. Pt did not want weight loss surgery to begin with. Pt to stop coming to see RD indefinitely unless she changes her mind at a future date. documented in this encounter Plan of Treatment Not on file documented as of this encounter Visit Diagnoses Not on filedocumented in this encounter Care Teams Beam Doffer Relationship Specialty Start Date End Date Janessa Langley MD PCP - General Internal Medicine 12/02/15 11/03/19 Mark Caraballo MD PCP - General Family Practice 11/04/19 04/13/20 Janessa Langley MD PCP - General Internal Medicine 04/14/20 08/08/20 Layla Segal MD [address] [place] [address] PCP - General Internal Medicine 08/09/20 10/19/20 Amparo Pressley MD [address] [place] [address] PCP - General Internal Medicine 10/20/20 12/12/20 Layla Segal MD [address] [place] [address] PCP - General Internal Medicine 12/13/20 01/07/22 [facility], Pcp [address] [address] PCP - General Internal Medicine 01/08/22 Isela Roe MD [address] [address] Specialist Cardiology 10/28/20 documented as of this encounter
--- OUTSIDE RECORDS SUMMARY | 2024-07-07 18:30 | XMS_ITS | Encounter Summary ---
Author Organization [facility] Address [address] [place] [address] Care Team Providers Care Fluorescent Lamp Replacer Name Role Phone Amparo Pressley MD Primary Care Provider Un available Mark Alfonso MD Primary Care Provider Unavail able Janessa Langley MD Primary Care Provider Unavaila Mark Valera MD Primary Care Provider Unavail able Janessa Lanlgey MD Primary Care Provider Unavaila Mark Mayo MD Primary Care Provider Unav ailable Janessa Langley MD Primary Care Provider Unavaila Layla Juarez MD Primary Care Provider [phone] Amparo Pressley MD Primary Care Provider Un available Isela Roe MD Unavailable [phone] Layla Segal MD Primary Care Provider [phone] [facility], Pcp Primary Care Provider Unavailabl e Encounter Details Date Type Department Care Team Description 12/12/2011 Gate Shear Operator Report Medical Records [address] [place], [place] [id number] [place] [address] Social History Tobacco Use Types Packs/Day Years [...] on filedocumented in this encounter Care Teams Fluorescent Lamp Replacer Relationship Specialty Start Date End Date Amparo [...] Medicine 04/14/20 08/08/20 Layla Segal MD [address] [place] [address] PCP - General Internal Medicine 08/09/20 10/19/20 Amparo Pressley MD PCP - General Internal Medicine 10/20/20 Layla Segal MD [address] [place] [address] PCP - General Internal Medicine 12/13/20 01/07/22 [facility], Pcp [address] [address] PCP - General Internal Medicine 01/08/22 Isela Roe MD 300 [facility] [address] [place] [address] Specialist Cardiology 10/28/20 documented as of this encounter
--- OUTSIDE RECORDS SUMMARY | 2024-07-07 18:30 | XMS_ITS | Encounter Summary ---
Author Organization [facility] Address [address] [place] [address] Care Team Providers Care Psychiatric Orderly Name Role Phone Mark Alfonso MD Primary Care Provider Unavail able Janessa Langley MD Primary Care Provider Unavaila Mark Valera MD Primary Care Provider Unavail able Janessa Langley MD Primary Care Provider Unavaila Mark Mayo MD Primary Care Provider Unav ailable Janessa Langley MD Primary Care Provider Unavaila Layla Juarez MD Primary Care Provider [phone] Amparo Pressley MD Primary Care Provider Un available Isela Roe MD Unavailable [phone] Layla Segal MD Primary Care Provider [phone] Replaced By [facility], Pcp Primary Care Provider Unavailabl e Encounter Details Date Type Department Care Team Description 02/10/2015 Strategic Planning Analyst Report Medical Records [address] [place] [address] Hollis Sweeney MD Social History Tobacco Use [...] on filedocumented in this encounter Care Teams Psychiatric Orderly Relationship Specialty Start Date End Date Mark [...] Medicine 04/14/20 08/08/20 Layla Segal MD [address] [place] [address] PCP - General Internal Medicine 08/09/20 10/19/20 Amparo Pressley MD [address] [place] [address] PCP - General Internal Medicine 10/20/20 12/12/20 Layla Segal MD [address] [place] [address] PCP - General Internal Medicine 12/13/20 01/07/22 Replaced By [facility], Pcp [address] [address] PCP - General Internal Medicine 01/08/22 Isela Roe MD [address] [address] Specialist Cardiology 10/28/20 documented as of this encounter
--- OUTSIDE RECORDS SUMMARY | 2024-07-07 18:30 | XMS_ITS | Encounter Summary ---
Author Organization [facility] Address [address] [place] [address] Care Team Providers Care National Account Representative Name Role Phone Janessa Langley MD Primary Care Provider Mark Thomas MD Primary Care Provider Unav ailable Janessa Langley MD Primary Care Provider Unavaila Layla Juarez MD Primary Care Provider [phone] Amparo Pressley MD Primary Care Provider Un available Isela Roe MD Unavailable [phone] Layla Segal MD Primary Care Provider [phone] [facility] Primary Care Provider Unavailabl e Encounter Details Date Type Department Care Team Description 08/02/2016 Retail Asset Protection Specialist Report Medical Records [address] [place] [address] Mckinley Wright MD Social History Tobacco Use [...] on filedocumented in this encounter Care Teams National Account Representative Relationship Specialty Start Date End Date Janessa Langley MD PCP - General Internal Medicine 12/02/15 11/03/19 Mark Caraballo MD PCP - General Family Practice 11/04/19 04/13/20 Janessa Langley MD PCP - General Internal Medicine 04/14/20 08/08/20 Layla Segal MD [address] [place] [address] PCP - General Internal Medicine 08/09/20 10/19/20 Amparo Pressley MD [address] [place] [address] PCP - General Internal Medicine 10/20/20 12/12/20 Layla Segal MD [address] [place] [address] PCP - General Internal Medicine 12/13/20 01/07/22 [facility], Pcp [address] [address] PCP - General Internal Medicine 01/08/22 Isela Roe MD 300 [facility] [address] [place] [address] Specialist Cardiology 10/28/20 documented as of this encounter
--- OUTSIDE RECORDS SUMMARY | 2024-07-07 18:30 | XMS_ITS | Encounter Summary ---
Author Organization [facility] Address [address] [place] [address] Care Team Providers Care Stuntman Name Role Phone Amparo Pressley MD Primary Care Provider Un available Mark Alfonso MD Primary Care Provider Unavail able Janessa Langley MD Primary Care Provider Unavaila Mark Valera MD Primary Care Provider Unavail able Janessa Langley MD Primary Care Provider Unavaila Mark Mayo MD Primary Care Provider Unav ailable Janessa Langley MD Primary Care Provider Unavaila Layla Juarez MD Primary Care Provider [phone] Amparo Pressley MD Primary Care Provider Un available Isela Roe MD Unavailable [phone] Layla Segal MD Primary Care Provider [phone] [facility] Primary Care Provider Unavailabl e Encounter Details Date Type Department Care Team Description 01/26/2010 Controlled Substance Plan Medical Records [address] [place] [address] Abstract, Provider Social History Tobacco Use Types [...] on filedocumented in this encounter Care Teams Stuntman Relationship Specialty Start Date End Date Amparo [...] Medicine 04/14/20 08/08/20 Layla Segal MD [address] [place] [address] PCP - General Internal Medicine 08/09/20 10/19/20 Amparo Pressley MD PCP - General Internal Medicine 10/20/20 Layla Segal MD [address] [place] [address] PCP - General Internal Medicine 12/13/20 01/07/22 [facility], Pcp [address] [address] PCP - General Internal Medicine 01/08/22 Isela Roe MD [address] [address] Specialist Cardiology 10/28/20 documented as of this encounter
--- OUTSIDE RECORDS SUMMARY | 2024-07-07 18:30 | XMS_ITS | Encounter Summary ---
Author Organization [facility] Address [address] [place] [address] Care Team Providers Care Director Emergency Department Name Role Phone Mark Alfonso MD Primary Care Provider Unavail able Janessa Langley MD Primary Care Provider Unavaila Mark Valera MD Primary Care Provider Unavail able Janessa Langley MD Primary Care Provider Unavaila Mark Mayo MD Primary Care Provider Unav ailable Janesas Langley MD Primary Care Provider Unavaila Layla Juarez MD Primary Care Provider [phone] Amparo Pressley MD Primary Care Provider Un available Isela Roe MD Unavailable [phone] Layla Segal MD Primary Care Provider [phone] [facility], Pcp Primary Care Provider Unavailabl e Encounter Details Date Type Department Care Team Description 05/06/2015 Walk In Clinic Visit Medical Records [address] [place] [address] Abstract, Provider Social History Tobacco Use Types [...] filedocumented in this encounter Care Teams Director Emergency Department Relationship Specialty Start Date End Date Mark [...] Medicine 04/14/20 08/08/20 Layla Segal MD [address] [place] [address] PCP - General Internal Medicine 08/09/20 10/19/20 Amparo Pressley MD [address] [place] [address] PCP - General Internal Medicine 10/20/20 12/12/20 Layla Segal MD [address] [place] [address] PCP - General Internal Medicine 12/13/20 01/07/22 [facility], Pcp [address] [address] PCP - General Internal Medicine 01/08/22 Isela Roe MD [address] [address] Specialist Cardiology 10/28/20 documented as of this encounter
--- OUTSIDE RECORDS SUMMARY | 2024-07-07 18:30 | XMS_ITS | Encounter Summary ---
Author Organization [facility] Address [address] [place] [address] Care Team Providers Care Canvassing Manager Name Role Phone Janessa Langley MD Primary Care Provider Mark Thomas MD Primary Care Provider Unav ailable Janessa Langley MD Primary Care Provider Unavaila Layla Juarez MD Primary Care Provider [phone] Amparo Pressley MD Primary Care Provider Un available Isela Roe MD Unavailable [phone] Layla Segal MD Primary Care Provider [phone] [facility], [facility] Primary Care Provider Unavailabl e Reason for Visit * Reason Onset Date Comments Provider Call Back 08/08/2016 Encounter Details Date Type Department Care Team Description 08/08/2016 Telephone Physiatry - [address] [address] Christopher Wong DO Provider Call Back Social [...] Patient was at Dr Trujillo's office (at [facility], lung specialist) patient states that Dr Trujillo told her she had a damaged nerve in her back. There was no imaging done by that Dr & patient states that Lynn recommended that she have an updated MRI. Pt states that Dr Tian tried patient on Gabapentinbut had to check with Dr Delarosa (franchise development manager at [facility]) because pt has POTS syndrome and Gabapentin can effect other medications ,so that was stopped. Patient having trouble walking having a lot ofpain for the last 2 months. Please review and advise * Telephone Encounter - Sakina Dan - 08/08/2016 10:12 AM EDT Caller requesting [...] on filedocumented in this encounter Care Teams Canvassing Manager Relationship Specialty Start Date End Date Janessa Langley MD PCP - General Internal Medicine 12/02/15 11/03/19 Mark Caraballo MD PCP - General Family Practice 11/04/19 04/13/20 Janessa Langley MD PCP - General Internal Medicine 04/14/20 08/08/20 Layla Segal MD [address] [place] [address] PCP - General Internal Medicine 08/09/20 10/19/20 Amparo Pressley MD [address] [place] [address] PCP - General Internal Medicine 10/20/20 12/12/20 Layla Segal MD [address] [place] [address] PCP - General Internal Medicine 12/13/20 01/07/22 [facility], Pcp [address] [address] PCP - General Internal Medicine 01/08/22 Isela Roe MD 300 [facility] [address] [place] [address] Specialist Cardiology 10/28/20 documented as of this encounter
--- OUTSIDE RECORDS SUMMARY | 2024-07-07 18:30 | XMS_ITS | Encounter Summary ---
Author Organization [facility] Address [address] [place] [address] Care Team Providers Care Transfer Station Attendant Name Role Phone Janessa Langley MD Primary Care Provider Mark Thomas MD Primary Care Provider Unav ailable Janessa Langley MD Primary Care Provider Unavaila Layla Juarez MD Primary Care Provider [phone] Amparo Pressley MD Primary Care Provider Un available Isela Roe MD Unavailable [phone] Layla Segal MD Primary Care Provider [phone] [facility] Primary Care Provider Unavailabl e Reason for Visit * Reason Onset Date Comments refill request 01/07/2018 Encounter Details Date Type Department Care Team Description 01/07/2018 Refill Medicine/Pediatrics - [address] [address] Janessa Langley MD refill request Social History [...] for oxycodone - which was also positive. [facility] confirms last hydrocodone script (low dose) [...] N/A Patients current insurance carrier is: Payor: [employer] / Plan: [employer] / Product Type: MEDICAID RISK documented in this encounter Plan of Treatment Not on file documented as of this encounter Visit Diagnoses Diagnosis Anxiety Anxiety state, unspecified RUQ pain Abdominal pain, right upper quadrant documented in this encounter Care Teams Transfer Station Attendant Relationship Specialty Start Date End Date Janessa Langley MD PCP - General Internal Medicine 12/02/15 11/03/19 Mark Caraballo MD PCP - General Family Practice 11/04/19 04/13/20 Janessa Langley MD PCP - General Internal Medicine 04/14/20 08/08/20 Layla Segal MD [address] [place] [address] PCP - General Internal Medicine 08/09/20 10/19/20 Amparo Pressley MD [address] [place] [address] PCP - General Internal Medicine 10/20/20 12/12/20 Layla Segal MD [address] [place] [address] PCP - General Internal Medicine 12/13/20 01/07/22 [facility], Pcp [address] [address] PCP - General Internal Medicine 01/08/22 Isela Roe MD 300 [facility] [address] [place] [address] Specialist Cardiology 10/28/20 documented as of this encounter
--- OUTSIDE RECORDS SUMMARY | 2024-07-07 18:30 | XMS_ITS | Encounter Summary ---
Author Organization [facility] Address [address] [place] [address] Care Team Providers Care Associate Professor Of Psychology Name Role Phone Amparo Pressley MD Primary Care Provider Un available Mark Alfonso MD Primary Care Provider Unavail able Janessa Langley MD Primary Care Provider Unavaila Mark Valera MD Primary Care Provider Unavail able Janessa Langley MD Primary Care Provider Unavaila Mark Mayo MD Primary Care Provider Unav ailable Janessa Langley MD Primary Care Provider Unavaila Layla Juarez MD Primary Care Provider [phone] Amparo Pressley MD Primary Care Provider Un available Isela Roe MD Unavailable [phone] Layla Segal MD Primary Care Provider [phone] [facility], Pcp Primary Care Provider Unavailabl e Encounter Details Date Type Department Care Team Description 12/20/2009 Retail Office Associate Report Medical Records [address] [place] [address] Oleksandr Lozano MD Social History Tobacco Use Types Packs/Day [...] this encounter Care Teams Associate Professor Of Psychology Relationship Specialty Start Date End Date Amparo [...] Medicine 04/14/20 08/08/20 Layla Segal MD [address] [place] [address] PCP - General Internal Medicine 08/09/20 10/19/20 Amparo Pressley MD PCP - General Internal Medicine 10/20/20 Layla Segal MD [address] [place] [address] PCP - General Internal Medicine 12/13/20 01/07/22 [facility], Pcp [address] [address] PCP - General Internal Medicine 01/08/22 Isela Roe MD [address] [address] Specialist Cardiology 10/28/20 documented as of this encounter
--- OUTSIDE RECORDS SUMMARY | 2024-07-07 18:30 | XMS_ITS | Encounter Summary ---
Author Organization [facility] Address [address] [place] [address] Care Team Providers Care Passenger Service Agent Name Role Phone Amparo Pressley MD Primary Care Provider Un available Mark Alfonso MD Primary Care Provider Unavail able Janessa Langley MD Primary Care Provider Unavaila Mark Valera MD Primary Care Provider Unavail able Janessa Langley MD Primary Care Provider Unavaila Mark Mayo MD Primary Care Provider Unav ailable Janessa Langley MD Primary Care Provider Unavaila Layla Juarez MD Primary Care Provider [phone] Amparo Pressley MD Primary Care Provider Un available Isela Roe MD Unavailable [phone] Layla Segal MD Primary Care Provider [phone] [facility], Pcp Primary Care Provider Unavailabl e Encounter Details Date Type Department Care Team Description 04/04/2011 Hospital Medical Records [address] [place] [address] Shekhar Gauthier MD [address] [place] [id number] Social History Tobacco Use Types Packs/Day Years [...] on filedocumented in this encounter Care Teams Passenger Service Agent Relationship Specialty Start Date End Date Amparo [...] Medicine 04/14/20 08/08/20 Layla Segal MD [address] [place] [address] PCP - General Internal Medicine 08/09/20 10/19/20 Amparo Pressley MD PCP - General Internal Medicine 10/20/20 Layla Segal MD [address] [place] [address] PCP - General Internal Medicine 12/13/20 01/07/22 [facility], [facility] [address] [address] PCP - General Internal Medicine 01/08/22 Isela Roe MD [address] [address] Specialist Cardiology 10/28/20 documented as of this encounter
--- OUTSIDE RECORDS SUMMARY | 2024-07-07 18:30 | XMS_ITS | Encounter Summary ---
Author Organization [facility] Address [address] [place] [address] Care Team Providers Care Wind Turbine Electrical Engineer Name Role Phone Janessa Langley MD Primary Care Provider UnavailMark Guadarrama MD Primary Care Provider Unav ailable Janessa Langley MD Primary Care Provider Unavaila Layla Juarez MD Primary Care Provider [phone] Amparo Pressley MD Primary Care Provider Un available Iseal Roe MD Unavailable [phone] Layla Segal MD Primary Care Provider [phone] [facility] Primary Care Provider Unavailabl e Encounter Details Date Type Department Care Team Description 01/06/2018 Orders Only Medicine/Pediatrics - [address] [address] Janessa Langley MD History of thyroid cancer [...] thyroid documented in this encounter Care Teams Wind Turbine Electrical Engineer Relationship Specialty Start Date End Date Janessa Langley MD PCP - General Internal Medicine 12/02/15 11/03/19 Mark Caraballo MD PCP - General Family Practice 11/04/19 04/13/20 Janessa Langley MD PCP - General Internal Medicine 04/14/20 08/08/20 Layla Segal MD [address] [place] [address] PCP - General Internal Medicine 08/09/20 10/19/20 Amparo Pressley MD [address] [place] [address] PCP - General Internal Medicine 10/20/20 12/12/20 Layla Segal MD [address] [place] [address] PCP - General Internal Medicine 12/13/20 01/07/22 [facility], Pcp [address] [address] PCP - General Internal Medicine 01/08/22 Isela Roe MD [address] [address] Specialist Cardiology 10/28/20 documented as of this encounter
--- OUTSIDE RECORDS SUMMARY | 2024-07-07 18:30 | XMS_ITS | Encounter Summary ---
Author Organization [facility] Address [address] [place] [address] Care Team Providers Care Event Decorator And Designer Name Role Phone Amparo Pressley MD Primary Care Provider Un available Mark Alfonso MD Primary Care Provider Unavail able Janessa Langley MD Primary Care Provider Unavaila Mark Valera MD Primary Care Provider Unavail able Janessa Langley MD Primary Care Provider Unavaila Mark Mayo MD Primary Care Provider Unav ailable Janessa Langley MD Primary Care Provider Unavaila Layla Juarez MD Primary Care Provider [phone] Amparo Pressley MD Primary Care Provider Un available Isela Roe MD Unavailable [phone] Layla Segal MD Primary Care Provider [phone] [facility] Primary Care Provider Unavailabl e Reason for Visit * Reason Onset Date Comments Form 06/25/2011 Encounter Details Date Type Department Care Team Description 06/25/2011 Telephone Medicine/Pediatrics - [address] [id number] Amparo Pressley MD Form Social History Tobacco [...] confirmation stapled to papers. Placed back in [employer] filing cabinet in lab. * Telephone Encounter - Nathan Velásquez - 07/17/2011 11:56 AM EDT PT states that [employer] have not received the for babatunde she is asking if this can please be refaxed. If there are any problems she is asking for a call back. * Telephone Encounter - Viky Rodriguez M.A. - 06/28/2011 9:12 AM EDT Form completed and faxed to [phone] * Telephone Encounter - Kalyn Coronel - 06/25/2011 1:06 PM EDT If patient presents with the one of the forms directly below the direct patient with their forms toMedical Records to be completed by [facility]. All [facility] disability forms ONLY All [employer] requests for Worker's Compensation Motor vehicle accident [facility] Physical forms for long-term housing Life insurance FORMS TO BE COMPLETED IN THE PRACTICE: Type of form: [employer] Release of information form ( all sections) [...] Fax to other office at fax # [phone] If form is not to be picked up by patient has patient been informed that RELEASE OF INFO form must be signed by them for alternate person to pick up driver form? NO Patient has been informed that completion will be in 7-10 business days: YES documented in this encounter Plan of Treatment Not on file documented as of this encounter Visit Diagnoses Not on filedocumented in this encounter Care Teams Event Decorator And Designer Relationship Specialty Start Date End Date Amparo [...] Medicine 04/14/20 08/08/20 Layla Segal MD [address] [place] [address] PCP - General Internal Medicine 08/09/20 10/19/20 Amparo Pressley MD PCP - General Internal Medicine 10/20/20 Layla Segal MD [address] [place] [address] PCP - General Internal Medicine 12/13/20 01/07/22 [facility], Pcp [address] [address] PCP - General Internal Medicine 01/08/22 Isela Roe MD 300 [facility] [address] [place] [address] Specialist Cardiology 10/28/20 documented as of this encounter
--- OUTSIDE RECORDS SUMMARY | 2024-07-07 18:31 | XMS_ITS | Encounter Summary ---
[facility] Address [address] [place] [address] Care Team Providers Care Custom Bookbinder Name Role Phone Janessa Langley MD Primary Care Provider Mark Thomas MD Primary Care Provider Unav ailable Janessa Langley MD Primary Care Provider Unavaila Layla Juarez MD Primary Care Provider [phone] mAparo Pressley MD Primary Care Provider Un available Isela Roe MD Unavailable [phone] Layla Segal MD Primary Care Provider [phone] [facility] [place] [facility] Primary Care Provider Unavailabl e Encounter Details Date Type Department Care Team Description 11/05/2016 Continuity Coordinator Report Medical Records [address] [place] [address] Kiersten Wilkes MD Social History Tobacco Use [...] on filedocumented in this encounter Care Teams Custom Bookbinder Relationship Specialty Start Date End Date Janessa Langley MD PCP - General Internal Medicine 12/02/15 11/03/19 Mark Caraballo MD PCP - General Family Practice 11/04/19 04/13/20 Janessa Langley MD PCP - General Internal Medicine 04/14/20 08/08/20 Layla Segal MD [address] [place] [address] PCP - General Internal Medicine 08/09/20 10/19/20 Amparo Pressley MD [address] [place] [address] PCP - General Internal Medicine 10/20/20 12/12/20 Layla Segal MD [address] [place] [address] PCP - General Internal Medicine 12/13/20 01/07/22 [facility], Pcp [address] [address] PCP - General Internal Medicine 01/08/22 Isela Roe MD 300 [facility] [address] [place] [address] Specialist Cardiology 10/28/20 documented as of this encounter
--- OUTSIDE RECORDS SUMMARY | 2024-07-07 18:31 | XMS_ITS | Encounter Summary ---
[facility] Address [address] [place] [address] Care Team Providers Care Supervisor Education Name Role Phone Janessa Langley MD Primary Care Provider Mark Thomas MD Primary Care Provider Unav ailable Janessa Langley MD Primary Care Provider Unavaila Layla Juarez MD Primary Care Provider [phone] Amparo Pressley MD Primary Care Provider Un available Isela Roe MD Unavailable [phone] Layla Segal MD Primary Care Provider [phone] [facility] Primary Care Provider Unavailabl e Encounter Details Date Type Department Care Team Description 11/25/2016 Release of Information Medical Records [address] [place] [id number] Abstract, Provider Social History Tobacco Use Types [...] filedocumented in this encounter Care Teams Supervisor Education Relationship Specialty Start Date End Date Janessa Langley MD PCP - General Internal Medicine 12/02/15 11/03/19 Mark Caraballo MD PCP - General Family Practice 11/04/19 04/13/20 Janessa Langley MD PCP - General Internal Medicine 04/14/20 08/08/20 Layla Segal MD [address] [place] [address] PCP - General Internal Medicine 08/09/20 10/19/20 Amparo Pressley MD [address] [place] [address] PCP - General Internal Medicine 10/20/20 12/12/20 Layla Segal MD [address] [place] [address] PCP - General Internal Medicine 12/13/20 01/07/22 [facility], Pcp 300 [facility] [address] [place] [address] PCP - General Internal Medicine 01/08/22 Isela Roe MD 300 [facility] [address] [place] [address] Specialist Cardiology 10/28/20 documented as of this encounter
--- OUTSIDE RECORDS SUMMARY | 2024-07-07 18:31 | XMS_ITS | Encounter Summary ---
[facility] Address [address] [place] [address] Care Team Providers Care Lead Database Administrator Name Role Phone Janessa Langley MD Primary Care Provider Mark Thomas MD Primary Care Provider Unav ailable Janessa Langley MD Primary Care Provider Unavaila Layla Juarez MD Primary Care Provider [phone] Amparo Pressley MD Primary Care Provider Un available Isela Roe MD Unavailable [phone] Layla Segal MD Primary Care Provider [phone] [facility] Primary Care Provider Unavailabl e Encounter Details Date Type Department Care Team Description 05/25/2018 Hospital Medical Records [address] [place], [place] [id number] [place] [address] Social History Tobacco Use Types Packs/Day Years [...] filedocumented in this encounter Care Teams Lead Database Administrator Relationship Specialty Start Date End Date Janessa Langley MD PCP - General Internal Medicine 12/02/15 11/03/19 Mark Caraballo MD PCP - General Family Practice 11/04/19 04/13/20 Janessa Langley MD PCP - General Internal Medicine 04/14/20 08/08/20 Layla Segal MD [address] [place] [address] PCP - General Internal Medicine 08/09/20 10/19/20 Amparo Pressley MD [address] [place] [address] PCP - General Internal Medicine 10/20/20 12/12/20 Layla Segal MD [address] [place] [address] PCP - General Internal Medicine 12/13/20 01/07/22 [facility], Pcp [address] [address] PCP - General Internal Medicine 01/08/22 Isela Roe MD 300 [facility] [address] [place] [address] Specialist Cardiology 10/28/20 documented as of this encounter
--- OUTSIDE RECORDS SUMMARY | 2024-07-07 18:31 | XMS_ITS | Encounter Summary ---
Author Organization [facility] Address [address] [place] [address] Care Team Providers Care Burning Plant Operator Name Role Phone Janessa Langley MD Primary Care Provider Mark Thomas MD Primary Care Provider Unav ailable Janessa Langley MD Primary Care Provider Unavaila Layla Juarez MD Primary Care Provider [phone] Amparo Pressley MD Primary Care Provider Un available Isela Roe MD Unavailable [phone] Layla Segal MD Primary Care Provider [phone] [facility] [place] [place] Primary Care Provider Unavailabl e Encounter Details Date Type Department Care Team Description 09/25/2016 Dairy Feed Sales Consultant Report Medical Records [address] [place] [address] Maritza Lemus Social History Tobacco Use Types [...] on filedocumented in this encounter Care Teams Burning Plant Operator Relationship Specialty Start Date End Date Janessa Langley MD PCP - General Internal Medicine 12/02/15 11/03/19 Mark Caraballo MD PCP - General Family Practice 11/04/19 04/13/20 Janessa Langley MD PCP - General Internal Medicine 04/14/20 08/08/20 Layla Segal MD [address] [place] [address] PCP - General Internal Medicine 08/09/20 10/19/20 Amparo Pressley MD [address] [place] [address] PCP - General Internal Medicine 10/20/20 12/12/20 Layla Segal MD [address] [place] [address] PCP - General Internal Medicine 12/13/20 01/07/22 [facility], Pcp [address] [address] PCP - General Internal Medicine 01/08/22 Isela Roe MD 300 [facility] [address] [place] [address] Specialist Cardiology 10/28/20 documented as of this encounter
--- OUTSIDE RECORDS SUMMARY | 2024-07-07 18:31 | XMS_ITS | Encounter Summary ---
[facility] Address [address] [place] [address] Care Team Providers Care Network Cable Installer Name Role Phone Janessa Langley MD Primary Care Provider Mark Thomas MD Primary Care Provider Unav ailable Janessa Langley MD Primary Care Provider Unavaila Layla Juarez MD Primary Care Provider [phone] Amparo Pressley MD Primary Care Provider Un available Isela Roe MD Unavailable [phone] Layla Segal MD Primary Care Provider [phone] [facility] Primary Care Provider Unavailabl e Encounter Details Date Type Department Care Team Description 10/08/2016 Barratte Operator Report Medical Records [address] [place] [address] Kiersten Wilkes MD Social History Tobacco Use [...] on filedocumented in this encounter Care Teams Network Cable Installer Relationship Specialty Start Date End Date Janessa Langley MD PCP - General Internal Medicine 12/02/15 11/03/19 Mark Caraballo MD PCP - General Family Practice 11/04/19 04/13/20 Janessa Langley MD PCP - General Internal Medicine 04/14/20 08/08/20 Layla Segal MD [address] [place] [address] PCP - General Internal Medicine 08/09/20 10/19/20 Amparo Pressley MD [address] [place] [address] PCP - General Internal Medicine 10/20/20 12/12/20 Layla Segal MD [address] [place] [address] PCP - General Internal Medicine 12/13/20 01/07/22 [facility], Pcp [address] [address] PCP - General Internal Medicine 01/08/22 Isela Roe MD 300 [facility] [address] [place] [address] Specialist Cardiology 10/28/20 documented as of this encounter
--- OUTSIDE RECORDS SUMMARY | 2024-07-07 18:31 | XMS_ITS | Encounter Summary ---
Author [facility] Address [address] [place] [address] Care Team Providers Care Estimator And Drafter Supervisor Name Role Phone Janessa Langley MD Primary Care Provider Mark Thomas MD Primary Care Provider Unav ailable Janessa Langley MD Primary Care Provider Unavaila Layla Juarez MD Primary Care Provider [phone] Amparo Pressley MD Primary Care Provider Un available Isela Roe MD Unavailable [phone] Layla Segal MD Primary Care Provider [phone] [facility] Primary Care Provider Unavailabl e Encounter Details Date Type Department Care Team Description 04/25/2018 Radiotelegraph Operator Report Medical Records [address] [place] [address] [facility] Social [facility] Tobacco Use Types [...] on filedocumented in this encounter Care Teams Estimator And Drafter Supervisor Relationship Specialty Start Date End Date Janessa Langley MD PCP - General Internal Medicine 12/02/15 11/03/19 Mark Caraballo MD PCP - General Family Practice 11/04/19 04/13/20 Janessa Langley MD PCP - General Internal Medicine 04/14/20 08/08/20 Layla Segal MD [address] [place] [address] PCP - General Internal Medicine 08/09/20 10/19/20 Amparo Pressley MD [address] [place] [address] PCP - General Internal Medicine 10/20/20 12/12/20 Layla Segal MD [address] [place] [address] PCP - General Internal Medicine 12/13/20 01/07/22 [facility], Pcp [address] [address] PCP - General Internal Medicine 01/08/22 Isela Roe MD 300 [facility] [address] [place] [address] Specialist Cardiology 10/28/20 documented as of this encounter
--- OUTSIDE RECORDS SUMMARY | 2024-07-07 18:31 | XMS_ITS | Encounter Summary ---
[facility] Address [address] [place] [address] Care Team Providers Care Director Learning And Development Name Role Phone Janessa Langley MD Primary Care Provider Mark Thomas MD Primary Care Provider Unav ailable Janessa Langley MD Primary Care Provider Unavaila Layla Juarez MD Primary Care Provider [phone] Amparo Pressley MD Primary Care Provider Un available Isela Roe MD Unavailable [phone] Layla Segal MD Primary Care Provider [phone] [facility] Primary Care Provider Unavailabl e Encounter Details Date Type Department Care Team Description 06/13/2018 Release of Information Medical Records [address] [place] [id number] Abstract, Provider Social History Tobacco Use Types [...] filedocumented in this encounter Care Teams Director Learning And Development Relationship Specialty Start Date End Date Janessa Langley MD PCP - General Internal Medicine 12/02/15 11/03/19 Mark Caraballo MD PCP - General Family Practice 11/04/19 04/13/20 Janessa Langley MD PCP - General Internal Medicine 04/14/20 08/08/20 Layla Segal MD [address] [place] [address] PCP - General Internal Medicine 08/09/20 10/19/20 Amparo Pressley MD [address] [place] [address] PCP - General Internal Medicine 10/20/20 12/12/20 Layla Segal MD [address] [place] [address] PCP - General Internal Medicine 12/13/20 01/07/22 [facility], Pcp [address] [address] PCP - General Internal Medicine 01/08/22 Isela Roe MD 300 [facility] [address] [place] [address] Specialist Cardiology 10/28/20 documented as of this encounter
--- OUTSIDE RECORDS SUMMARY | 2024-07-07 18:31 | XMS_ITS | Encounter Summary ---
[facility] Address [address] [place] [address] Care Team Providers Care Mason Foreman/Superintendant Name Role Phone Janessa Langley MD Primary Care Provider UnavailMark Guadarrama MD Primary Care Provider Unav ailable Janessa Langley MD Primary Care Provider Unavaila Layla Juarez MD Primary Care Provider [phone] Amparo Pressley MD Primary Care Provider Un available Isela Roe MD Unavailable [phone] Layla Segal MD Primary Care Provider [phone] [facility] Primary Care Provider Unavailabl e Encounter Details Date Type Department Care Team Description 02/12/2017 Orders Only Physiatry - [address] [address] Christopher Wong DO Lumbar radiculitis; Lumbar herniated [...] myelopathy documented in this encounter Care Teams Mason Foreman/Superintendant Relationship Specialty Start Date End Date Janessa Langley MD PCP - General Internal Medicine 12/02/15 11/03/19 Mark Caraballo MD PCP - General Family Practice 11/04/19 04/13/20 Janessa Langley MD PCP - General Internal Medicine 04/14/20 08/08/20 Layla Segal MD [address] [place] [address] PCP - General Internal Medicine 08/09/20 10/19/20 Amparo Pressley MD [address] [place] [address] PCP - General Internal Medicine 10/20/20 12/12/20 Layla Segal MD [address] [place] [address] PCP - General Internal Medicine 12/13/20 01/07/22 [facility], Pcp [address] [address] PCP - General Internal Medicine 01/08/22 Isela Roe MD [address] [address] Specialist Cardiology 10/28/20 documented as of this encounter
[2024-07-07] MEDS: vancomycin/NS 2,000 MG/500 ML PLAST..BAG 250 MG IV (18:39)
--- NOTE | 2024-07-07 19:14 | PHA.PROG ---
Admission Date/Time: July 07, 2024 18:23 Indication: SKIN Weight in k.281 kg Adjusted body weight in Kg: [place] body weight in Kg: Obesity Dosing Indication % IBW: Serum Creatinine - Last 168 Hours 07/07/24 15:47 Creatinine 0.70 Estimated CrCl and GFR - Last 168 Hours 07/07/24 15:47 Estim Creat Clear Calc 172.6 Estimated GFR > 60 Vancomycin Loading Dose: 2000 MG Current Vancomycin Dosing Regimen: 1250 MG Q12H Vancomycin Monitoring using AUC goal of 400 - 600 range with trough as surrogate marker: LAS=935 TROUGH=14 Date and Time for next Vancomycin Level to be drawn: 07/08/24 @1600 Pharmacist Comments on Vancomycin Plan: Vancomycin dosing will take advantage of [employer]cell[employer] as a clinical decision support tool that uses Bayesian modeling to calculate individual patient's pharmacokinetic parameters and forecast the patient's drug concentration time course with the target goal AUC 24 range of 400 - 600 mg/L/hr.
[2024-07-07 20:15] VITALS: BP 120/62; PULSE 110; RESP 20; TEMP 36.4; O2SAT 100
--- NOTE | 2024-07-07 20:45 | MHC.EDTECH ---
pt was assisted to commode for a bowel movement. quincy care was given, pt assisted back in bed with blankets given, call rausch within reach, rn aware
[2024-07-07] MEDS: Enoxaparin Sodium 40 MG/0.4 ML SYRINGE SUBCUT (20:49)
[2024-07-07] MEDS: Hydrocortisone 1 % Cream 28.35 GM TUBE 1 APPL TOPICAL (20:49)
[2024-07-07 20:50] VITALS: RESP 16
[2024-07-07] MEDS: HYDROmorphone HCl 0.5 MG/0.5 ML SYRINGE IVPUSH (20:50)
[2024-07-07] MEDS: Nystatin Powder 15 GM BOTTLE 1 APPL TOPICAL (20:50)
--- NOTE | 2024-07-07 20:51 | PHA.MEDREC ---
Addendum entered by Jose C Osorio, [facility] 07/07/24 21:23: med rec reviewed Original Note: Pharmacy Consult ? Medication Reconciliation Pharmacy has completed the medication reconciliation. spoke with patient spouse at bedside and patient who were able to confirm medications with me. Patient confirmed she is taking the Bumetadine 1mg tab and stated her Dr told her to take it as needed for the fluid retention and when I asked about it being written twice a day the patient nor could recall the patient ever taking it twice a day or being told to take it that way. The confirmed the Vitamin B-12 injection once every 4 weeks and the patient states she is due now to get it. The confirmed the patient is taking the Cyclobenzaprine 10mg tab and confirmed the patient is taking 2 tablets (20mg) three times a day. The patient states she has not started taking the Hydroxyzine, Nystatin powder and Polyethylene powder and they are still waiting to be picked up at the pharmacy. The patient stated she never started the Pravastatin 20mg tab due to reading all the side effects of that medication. The and patient stated the patient is taking Trazodone and states she takes 200mg at bedtime but looking in claims we only have Trazodone 150mg tabs once at bedtime and when asking about that the states the patient gets 50mg tabs as well from [facility] that she takes with them but nothing in claims. I called the patients pharmacy the only recent dose of that medication being filled is the 150mg tab at bedtime and the last time the 50mg tab was filled was back in 05/2023. The patient confirmed she last took her medications this morning.
--- NOTE | 2024-07-07 21:39 | PC.NURSE ---
Took over care from SHANNA Novoa, pt repositioned in bed, legs elevated on pillow.
[2024-07-07 21:40] VITALS: BP 134/67; PULSE 115; RESP 20; TEMP 36.7; O2SAT 99
[2024-07-07] MEDS: cefEPime HCl/D5W 2 GM/50 ML PIGGYBACK IV (22:11)
[2024-07-07] MEDS: Loratadine 10 MG TABLET PO (22:14)
[2024-07-07] MEDS: diazePAM 10 MG/2 ML CARTRIDGE 5 MG IVPUSH (22:18)
[2024-07-07] MEDS: HYDROmorphone HCl 0.5 MG/0.5 ML SYRINGE 1 MG IVPUSH (23:22)
--- NOTE | 2024-07-08 01:06 | PC.NURSE ---
assisted pt out of bed to bedside commode. completed bed change.
--- NOTE | 2024-07-08 01:14 | PC.NURSE ---
Ua collected and sent.
[2024-07-08 01:23] LABS: Appearance Urine Cloudy; Color Urine Yellow; Glucose Urine UA Negative (Negative); Leukocyte Esterase Urine Negative (Negative); Nitrite Urine Negative (Negative); PH 6.5 (5.0-9.0); Specific Gravity - Urine >= 1.030 (1.005-1.025); UMIC TRIGGER UACC YES; Urine Blood Negative (Negative); Urine Ketones Trace mg/dL (Negative); Urine Protein 30 (1+) mg/dL (Neg-Trace)
[2024-07-08 01:38] LABS: Bacteria Urine 1+ (None Seen); RBC Urine 0-2 /HPF (0-2); WBC Urine 0-5 /HPF (0-5)
--- NOTE | 2024-07-08 03:02 | PC.NURSE ---
pt assisted out of bed, dressing applied to right buttocks, dressing changed. repositioned for comfort.
--- NOTE | 2024-07-08 03:17 | PC.NURSE ---
anti-itching to buttocks and posterior bilateral legs, wound dressing applied to left buttocks
[2024-07-08] MEDS: HYDROmorphone HCl 0.5 MG/0.5 ML SYRINGE 1 MG IVPUSH ×3 (03:47→22:03)
[2024-07-08] MEDS: 0.9 % Sodium Chloride Flush 3 ML SYRINGE IVFLUSH ×3 (03:49→16:40)
--- NOTE | 2024-07-08 04:11 | PC.NURSE ---
bilateral lower extremities dressing changed.
[2024-07-08 05:21] LABS: MANUAL DIFF FLAG NO
[2024-07-08 05:25] LABS: Basophils Absolute Auto 0.1 X10*3/uL (0.0-0.2); Basophils Percent Auto 0.5 % (0-2); Eosinophils Absolute Auto 0.5 X10*3/uL (0.0-0.4); Eosinophils Percent Auto 4.4 % (0-4); Hematocrit 31.8 % (37.0-47.0); Hemoglobin 10.1 g/dl (12.0-16.0); Imm Gran Pct Auto 1.8 % (0.0-0.4); Lymphocytes Absolute Auto 2.1 X10*3/uL (1.2-4.9); Lymphocytes Percent Auto 18.5 % (20-40); Mean Corpuscular HGB Conc 31.8 g/dl (31.0-35.0); Mean Corpuscular Hemoglobin 28.2 pg (27.0-33.0); Mean Corpuscular Volume 88.8 fL (80.0-98.0); Mean Platelet Volume 8.7 fL (9.4-12.3); Monocytes Percent Auto 8.6 % (2-11); Neutrophils Absolute Auto 7.5 x10*3/uL (2.0-8.3); Neutrophils Percent Auto 66.2 % (45-73); Platelet Count 391 X10*3/uL (160-400); Red Blood Count 3.58 X10*6/uL (4.20-5.50); Red Cell Distribution Width 15.8 % (11.0-16.0); White Blood Count 11.3 X10*3/uL (4.8-10.8)
[2024-07-08] MEDS: cefEPime HCl/D5W 2 GM/50 ML PIGGYBACK IV ×2 (05:30→16:36)
[2024-07-08 05:47] VITALS: BP 106/41; PULSE 62; RESP 19; TEMP 36.9; O2SAT 96
[2024-07-08 05:47] LABS: Anion Gap 15 (12-20); Blood Urea Nitrogen 17 mg/dL (9-16); Calcium 7.8 mg/dL (8.4-10.2); Carbon Dioxide 28 mmol/L (22-29); Chloride 98 mmol/L (96-108); Creatinine Clr Calc Pharmacy 180.4; Estimated Glomerular Filt Rate > 60; Glucose Random 158 mg/dL (60-115); Potassium 3.8 mmol/L (3.3-5.1); Sodium 137 mmol/L (135-145)
[2024-07-08] MEDS: vancomycin HCL 1,250 MG in 0.9 % Sodium Chloride 250 ML 166.67 MG IV (06:17)
--- NOTE | 2024-07-08 06:22 | PC.NURSE ---
medicated per mar.
[2024-07-08 07:53] VITALS: BP 118/50; PULSE 110; RESP 18; TEMP 37.1; O2SAT 3
--- NOTE | 2024-07-08 09:15 | PC.NURSE ---
Medication administration delayed d/t not having meds in pyxis- pharmacy notified.
[2024-07-08] MEDS: Levothyroxine Sodium 25 MCG TABLET PO (09:48)
[2024-07-08] MEDS: Cyclobenzaprine HCl 10 MG TABLET 20 MG PO ×3 (09:48→20:43)
[2024-07-08] MEDS: Levothyroxine Sodium 200 MCG TABLET PO (09:48)
[2024-07-08] MEDS: Omeprazole 20 MG CAPSULE.DR PO ×2 (09:48→20:43)
[2024-07-08] MEDS: Acetaminophen 325 MG TABLET 650 MG PO ×2 (09:52→20:44)
[2024-07-08] MEDS: Loratadine 10 MG TABLET PO (09:53)
[2024-07-08 10:31] VITALS: RESP 20
[2024-07-08] MEDS: Loperamide HCl 2 MG CAPSULE 4 MG PO (10:32)
--- NOTE | 2024-07-08 10:59 | PC.NURSE ---
Pt medicated per MAR for BLE leg pain. Pt having multiple episodes of loose stools- Provider made aware. Plan for GI/Cdiff panel .
[2024-07-08 11:30] LABS: Glucose, Whole Blood 163 mg/dL (60-115)
[2024-07-08] MEDS: Nystatin/Triamcinolone Cream 15 GM TUBE 1 APPL TOPICAL (12:04)
[2024-07-08] MEDS: Cyanocobalamin (Vitamin B-12) 1,000 MCG/ML VIAL 1000 MCG IM (12:04)
[2024-07-08] MEDS: Hydrocortisone 1 % Cream 28.35 GM TUBE 1 APPL TOPICAL (12:05)
[2024-07-08] MEDS: Nystatin Powder 15 GM BOTTLE 1 APPL TOPICAL ×2 (12:05→16:41)
[2024-07-08] MEDS: Insulin Lispro 100 UNIT/ML 3 ML VIAL SUBCUT (12:05)
--- NOTE | 2024-07-08 12:35 | HO.PM.IMPN ---
Subjective Subjective Date of Service: 07/08/24 Interval History: Seen and evaluated this morning erythema already improving reporting diarrhea no other events Review of Systems Review of Systems: Yes all other systems are reviewed and are negative Physical Exam Vital Signs: Vital Signs: Last Vital Signs Temp 98.8 F 07/08/24 07:53 Pulse 110 H 07/08/24 07:53 Resp 20 07/08/24 10:31 BP 118/50 L 07/08/24 07:53 Pulse Ox 3 L 07/08/24 07:53 O2 Del Method Nasal Cannula 07/08/24 07:53 O2 Flow Rate 4 07/07/24 21:40 Oxygen Flow Rate 5 07/07/24 14:56 BMI result Body Mass Index 82.9 Const: Other: Constitutional : interactive, not in distress, morbidly obese Cardiovascular : no JVP, no lower extremity edema Respiratory : bilateral chest movement, not in resp distress Gastrointestinal: soft, lax, Non tender Skin : Warm, Dry, less erythema in lower extremities, significant lymphedema but less drainage, covered with dressing, ulceration of RLE Neurological : Alert & oriented , No focal deficit Objective Data Active Medications Acetaminophen (Acetaminophen 325 Mg Tablet) 650 mg PO Q6H PRN PRN Reason: Pain, Mild 1-3,fever,headache Last Admin: 07/08/24 09:52 Dose: 650 mg Documented By: RADHA Acetaminophen (Acetaminophen 325 Mg Tablet) 650 mg PO BEDTIME [facility] Albuterol Sulfate (Albuterol Sulfate 90 Mcg 8 Gm Inhaler) 2 puff INHALE Q6H PRN PRN Reason: Shortness Of Breath Or Wheezing Calcium Carbonate (Calcium Carbonate 750 Mg Tab.Chew) 750 mg PO Q4H PRN PRN Reason: Heartburn Cyanocobalamin (Cyanocobalamin (Vitamin B-12) 1,000 Mcg/Ml Vial) 1,000 mcg IM Q28D [facility] Last Admin: 07/08/24 12:04 Dose: 1,000 mcg Documented By: RADHA Cyclobenzaprine HCl (Cyclobenzaprine Hcl 10 Mg Tablet) 20 mg PO TID [facility] Last Admin: 07/08/24 09:48 Dose: 20 mg Documented By: RADHA Diphenhydramine HCl (Diphenhydramine Hcl 25 Mg Capsule) 50 mg PO BEDTIME [facility] Enoxaparin Sodium (Enoxaparin Sodium 40 Mg/0.4 Ml Syringe) 40 mg SUBCUT Q24H [facility] Last Admin: 07/07/24 20:49 Dose: 40 mg Documented By: ANTWAN Fluticasone/Vilanterol (Fluticasone/Vilanterol 100/25 Blst.W.Dev) 1 puff INHALE RDAILY [facility] Hydrocortisone (Hydrocortisone 1 % Cream 28.35 Gm Tube) 1 appl TOPICAL BID [facility]; Protocol Last Admin: 07/08/24 12:05 Dose: 1 appl Documented By: RADHA Hydromorphone HCl (Hydromorphone Hcl 0.5 Mg/0.5 Ml Syringe) 1 mg IVPUSH Q4H PRN; Protocol PRN Reason: Breakthrough Pain Last Admin: 07/08/24 10:31 Dose: 1 mg Documented By: RADHA Vancomycin HCl 1,250 mg/ (Sodium Chloride) 250 mls @ 166.667 mls/hr IV Q12H [facility] Last Infusion: 07/08/24 08:17 Dose: Infused Documented By: RADHA Cefepime HCl (Maxipime) 2 gm in 50 mls @ 100 mls/hr IV Q8H [facility] Last Infusion: 07/08/24 06:10 Dose: Infused Documented By: SWAPNIL Insulin Human Lispro (Insulin Lispro 100 Unit/Ml 3 Ml Vial) 0 unit SUBCUT QIDACHS [facility]; Protocol Last Admin: 07/08/24 12:05 Dose: 2 unit Documented By: RADHA Levothyroxine Sodium (Levothyroxine Sodium 25 Mcg Tablet) 25 mcg PO DAILY [facility] Last Admin: 07/08/24 09:48 Dose: 25 mcg Documented By: RADHA Levothyroxine Sodium (Levothyroxine Sodium 200 Mcg Tablet) 200 mcg PO DAILY [facility] Last Admin: 07/08/24 09:48 Dose: 200 mcg Documented By: RADHA Loperamide HCl (Loperamide Hcl 2 Mg Capsule) 2 mg PO Q4H PRN PRN Reason: Diarrhea Loratadine (Loratadine 10 Mg Tablet) 10 mg PO DAILY [facility] Last Admin: 07/08/24 09:53 Dose: 10 mg Documented By: RADHA Lorazepam (Lorazepam 1 Mg Tablet) 2 mg PO BEDTIME PRN PRN Reason: anxiety Magnesium Hydroxide (Milk Of Magnesia 30 Ml Oral.Susp) 30 ml PO DAILY PRN PRN Reason: Constipation Melatonin (Melatonin 3 Mg Tablet) 6 mg PO BEDTIME PRN PRN Reason: Insomnia Montelukast Sodium (Montelukast Sodium 10 Mg Tablet) 10 mg PO BEDTIME [facility] Nystatin (Nystatin Powder 15 Gm Bottle) 1 appl TOPICAL TID [facility]; Protocol Last Admin: 07/08/24 12:05 Dose: 1 appl Documented By: RADHA Nystatin/Triamcinolone Acetonide (Nystatin/Triamcinolone Cream 15 Gm Tube) 1 appl TOPICAL BID [facility] Last Admin: 07/08/24 12:04 Dose: 1 appl Documented By: RADHA Omeprazole (Omeprazole 20 Mg Capsule.) 20 mg PO BID [facility] Last Admin: 07/08/24 09:48 Dose: 20 mg Documented By: RADHA Pharmacy Consult (Consult Rx Vancomycin Dosing) 1 each MISCELLANE DAILY PRN PRN Reason: Consult order Sodium Chloride (0.9 % Sodium Chloride Flush 3 Ml Syringe) 3 ml IVFLUSH QSHIFT [facility] Last Admin: 07/08/24 09:53 Dose: 3 ml Documented By: RAHDA Trazodone HCl (Trazodone Hcl 50 Mg Tablet) 150 mg PO BEDTIME PRN PRN Reason: sleep Labs 07/08/24 03:37 07/08/24 03:37 Labs: Laboratory Results - last 24 hr 07/07/24 07/08/24 07/08/24 15:47 01:11 03:37 MCV 88.7 88.8 MCH 27.9 28.2 MCHC 31.4 31.8 RDW 15.7 15.8 Plt Count 405 H D 391 MPV 8.2 L 8.7 L Immature Gran % (Auto) 2.3 H 1.8 H Neut % (Auto) 64.2 66.2 Lymph % (Auto) 18.8 L 18.5 L [place] % (Auto) 7.5 8.6 Eos % (Auto) 6.7 H 4.4 H Baso % (Auto) 0.5 0.5 Lymph # (Auto) 2.1 2.1 [place] # (Auto) 0.8 1.0 Eos # (Auto) 0.7 H 0.5 H Baso # (Auto) 0.1 0.1 Abs Immat Gran (auto) 0.25 H 0.20 H Absolute Neuts (auto) 7.1 7.5 Absolute Nucleated RBC 0.000 0.000 Nucleated RBC % (auto) 0.0 0.0 ESR 83 H Anion Gap 13 15 Estim Creat Clear Calc 172.6 180.4 Estimated GFR > 60 > 60 POC Glucose Random Glucose 115 158 H Lactic Acid 1.2 Calcium 8.8 7.8 L D Total Bilirubin 0.4 AST 39 H ALT 32 H Alkaline Phosphatase 92 C-Reactive Protein 4.84 H B-Natriuretic Peptide < 10 Total Protein 8.0 Albumin 3.9 Beta-Hydroxybutyrate 0.08 Urine Color Yellow Urine Appearance Cloudy Urine pH 6.5 Ur Specific [place] >= 1.030 H Urine Protein 30 (1+) H Urine Glucose (UA) Negative Urine Ketones Trace Urine Blood Negative Urine Nitrite Negative Ur Leukocyte Esterase Negative Urine RBC 0-2 Urine WBC 0-5 Ur Squamous Epith Cells 6-10 Urine Bacteria 1+ Hyaline Casts 3-5 Influenza Type A (PCR) NEGATIVE Influenza Type B (PCR) NEGATIVE RSV RNA Qual (PCR) NEGATIVE SARS-CoV-2 RNA (RT-PCR) NEGATIVE 07/08/24 11:26 MCV MCH MCHC RDW Plt Count MPV Immature Gran % (Auto) Neut % (Auto) Lymph % (Auto) [place] % (Auto) Eos % (Auto) Baso % (Auto) Lymph # (Auto) [place] # (Auto) Eos # (Auto) Baso # (Auto) Abs Immat Gran (auto) Absolute Neuts (auto) Absolute Nucleated RBC Nucleated RBC % (auto) ESR Anion Gap Estim Creat Clear Calc Estimated GFR POC Glucose 163 H Random Glucose Lactic Acid Calcium Total Bilirubin AST ALT Alkaline Phosphatase C-Reactive Protein B-Natriuretic Peptide Total Protein Albumin Beta-Hydroxybutyrate Urine Color Urine Appearance Urine pH Ur Specific [place] Urine Protein Urine Glucose (UA) Urine Ketones Urine Blood Urine Nitrite Ur Leukocyte Esterase Urine RBC Urine WBC Ur Squamous Epith Cells Urine Bacteria Hyaline Casts Influenza Type A (PCR) Influenza Type B (PCR) RSV RNA Qual (PCR) SARS-CoV-2 RNA (RT-PCR) Assessment and Plan (1) Cellulitis of lower leg: Status: Acute (2) Lymphedema: Status: Acute (3) Wound of lower extremity: Status: Acute Plan 54-year-old female with history of CVA, mi, CHARITO on CPAP, chronic hypoxemic/hypercapnic respiratory failure, CHF, history of thyroid cancer s/p total thyroidectomy, GERD, pots, type 2 diabetes, lymphedema, who is morbidly obese with BMI greater than 82 admitted for further management of acute cellulitis of the right lower extremity Acute cellulitis RLE with background lymphedema/venous ulcers Not septic Continue IV vancomycin and cefepime (initiated 07/07) Pain management p.r.n. Wound RN consult Hydrocortisone cream and compression wraps to the bilateral lower extremities Follow CBC, cultures Intertriginous candidiasis Nystatin t.i.d. Acute mild transaminitis Likely in setting of infection follow LFT [id number] type 2 diabetes Controlled with most recent A1c 6.1% POC glucose, diabetic diet Sliding scale insulin Hold glipizide Hypothyroidism-postsurgical with history of thyroid cancer Levothyroxine CHARITO/obesity hypoventilation syndrome/chronic hypoxemic hypercapnic respiratory failure Continue home O2, goal 90-92% CPAP bedtime CAD/CVA/CHF No anginal chest pain, clinically no CHF exacerbation Continue p.o. meds Mood disorder Continue home medications GERD PPI Chronic normocytic anemia Baseline Super morbid obesity BMI 82.9, recent 100 lb weight loss. Encouraged ongoing weight loss efforts DVT prophylaxis-Lovenox Full code Patient requires inpatient stay overnight for management of acute extensive cellulitis of the right lower extremity affecting greater than >50% of lower extremity which will require IV antibiotics Quality Stroke Does the patient have a stroke diagnosis?: No VTE Prior VTE?: No VTE Risk Level:: Medical - moderate - high VTE Device Contraindication: Treatment Not Indicated VTE Drug Contraindication: N/A - Med Ordered
[2024-07-08 12:55] LABS: Alanine Aminotransferase 27 U/L (0-31); Albumin Level 3.2 g/dL (3.5-5.0); Alkaline Phosphatase 76 U/L (39-117); Aspartate Amino Transferase 41 U/L (5-31); Bilirubin Direct 0.2 mg/dL (0.0-0.5); Bilirubin Total 0.5 mg/dL (0.0-1.0); Total Protein 6.4 g/dL (6.5-8.0)
--- NOTE | 2024-07-08 14:03 | MHC.CM.PN ---
pt lives with has ambulatory service representative services and services thru [facility] pt has home 02 and a scooter she goes to [facility] wound clinic pt will need amb home when dcd
[2024-07-08] MEDS: Loperamide HCl 2 MG CAPSULE PO (16:35)
[2024-07-08 16:44] LABS: Glucose, Whole Blood 104 mg/dL (60-115)
[2024-07-08 16:55] LABS: Vancomycin Random 7.8 mcg/mL (15-20)
[2024-07-08] MEDS: ondansetron HCL 4 MG/2 ML VIAL IVPUSH (17:07)
--- NOTE | 2024-07-08 17:08 | PC.NURSE ---
Pt nauseous and dry heaving- MD made aware. Verbal order for 4mg IVP Zofran given, medicated with IVP Zofran @1707. Pt sitting up in bed, managing own secretions/airway, no aspiration risk. Call rausch within reach, all needs met at this time.
[2024-07-08 18:33] VITALS: BP 152/79; PULSE 100; RESP 16; TEMP 37; O2SAT 96
--- NOTE | 2024-07-08 19:08 | PC.NURSE ---
BLE leg wounds re dressed, cleaned, and wrapped. Eliana yellow/green drainage, aware.
[2024-07-08] MEDS: diphenhydrAMINE HCL 25 MG CAPSULE 50 MG PO (20:43)
[2024-07-08] MEDS: LORazepam 1 MG TABLET 2 MG PO (20:43)
[2024-07-08] MEDS: Montelukast Sodium 10 MG TABLET PO (20:44)
[2024-07-08] MEDS: Enoxaparin Sodium 40 MG/0.4 ML SYRINGE SUBCUT (20:44)
[2024-07-08 21:00] VITALS: BP 140/66; PULSE 103; RESP 16; TEMP 36.2; O2SAT 99
[2024-07-08 21:40] LABS: Glucose, Whole Blood 132 mg/dL (60-115)
[2024-07-08] MEDS: vancomycin HCL 1,500 MG in 0.9 % Sodium Chloride 500 ML 333.33 MG IV (23:13)
[2024-07-08 23:43] VITALS: BP 124/57; PULSE 106; RESP 16; TEMP 36.1; O2SAT 98
[2024-07-08 23:56] VITALS: BMI 82.3
[2024-07-09] MEDS: cefEPime HCl/D5W 2 GM/50 ML PIGGYBACK IV ×4 (00:03→22:55)
[2024-07-09] MEDS: 0.9 % Sodium Chloride Flush 3 ML SYRINGE IVFLUSH ×3 (00:08→18:09)
[2024-07-09] MEDS: HYDROmorphone HCl 0.5 MG/0.5 ML SYRINGE 1 MG IVPUSH ×4 (02:45→22:40)
[2024-07-09 04:00] VITALS: BP 126/60; PULSE 99; RESP 18; TEMP 36; O2SAT 95
[2024-07-09] MEDS: diphenhydrAMINE HCL 25 MG CAPSULE PO (05:46)
[2024-07-09 05:56] LABS: MANUAL DIFF FLAG NO
[2024-07-09 06:03] LABS: Basophils Absolute Auto 0.1 X10*3/uL (0.0-0.2); Basophils Percent Auto 0.8 % (0-2); Eosinophils Absolute Auto 0.7 X10*3/uL (0.0-0.4); Eosinophils Percent Auto 7.8 % (0-4); Hematocrit 32.7 % (37.0-47.0); Hemoglobin 9.9 g/dl (12.0-16.0); Imm Gran Abs Auto 0.24 X10*3/uL (0.00-0.03); Imm Gran Pct Auto 2.7 % (0.0-0.4); Lymphocytes Absolute Auto 2.1 X10*3/uL (1.2-4.9); Mean Corpuscular HGB Conc 30.3 g/dl (31.0-35.0); Mean Corpuscular Hemoglobin 27.8 pg (27.0-33.0); Mean Corpuscular Volume 91.9 fL (80.0-98.0); Mean Platelet Volume 8.5 fL (9.4-12.3); Monocytes Absolute Auto 0.8 X10*3/uL (0.1-1.2); Monocytes Percent Auto 9.2 % (2-11); NRBC Pct Auto 0.2 /100WBC (0.0-0.2); Neutrophils Absolute Auto 4.9 x10*3/uL (2.0-8.3); Neutrophils Percent Auto 55.5 % (45-73); Platelet Count 390 X10*3/uL (160-400); Red Blood Count 3.56 X10*6/uL (4.20-5.50); Red Cell Distribution Width 15.9 % (11.0-16.0); White Blood Count 8.8 X10*3/uL (4.8-10.8)
[2024-07-09 06:11] LABS: Anion Gap 13 (12-20); Blood Urea Nitrogen 12 mg/dL (9-16); Calcium 7.7 mg/dL (8.4-10.2); Carbon Dioxide 32 mmol/L (22-29); Chloride 98 mmol/L (96-108); Creatinine Clr Calc Pharmacy 182.1; Estimated Glomerular Filt Rate > 60; Glucose Random 140 mg/dL (60-115); Potassium 3.5 mmol/L (3.3-5.1); Sodium 139 mmol/L (135-145)
[2024-07-09] MEDS: Levothyroxine Sodium 25 MCG TABLET PO (06:45)
[2024-07-09] MEDS: Levothyroxine Sodium 200 MCG TABLET PO (06:45)
[2024-07-09] MEDS: Cyclobenzaprine HCl 10 MG TABLET 20 MG PO ×3 (06:48→21:53)
[2024-07-09 07:16] VITALS: BP 122/57; PULSE 102; RESP 18; TEMP 36.8; O2SAT 96
[2024-07-09 07:26] LABS: Glucose, Whole Blood 142 mg/dL (60-115)
[2024-07-09] MEDS: vancomycin HCL 1,500 MG in 0.9 % Sodium Chloride 500 ML 333.33 MG IV ×2 (08:23→18:07)
[2024-07-09] MEDS: Omeprazole 20 MG CAPSULE.DR PO ×2 (08:25→21:57)
[2024-07-09] MEDS: Loratadine 10 MG TABLET PO (08:25)
[2024-07-09 10:30] VITALS: O2SAT 93
--- NOTE | 2024-07-09 10:42 | MHC.CM.PN ---
Per MD rounds patient may be ready to discharge tomorrow. The plan is to wean from 4L O2 down to 2L O2. DP Home resume [facility]PERATOR and [facility], as well as Wound clinic services. She will require BLS home. Pts WT 464.2lbs, Bariatric transport.
[2024-07-09 11:12] LABS: Glucose, Whole Blood 129 mg/dL (60-115)
--- NOTE | 2024-07-09 12:30 | P.PNIM_ITS ---
Subjective Subjective Date of Service: 07/09/24 Interval History: Seen and evaluated this morning erythema improving still oozing from the wounds reporting diarrhea less frequent no other events Review of Systems Review of Systems: Yes all other systems are reviewed and are negative Physical Exam 2 Vital Signs: Vital Signs: Last Vital Signs Temp 98.3 F 07/09/24 07:16 Pulse 102 H 07/09/24 07:16 Resp 18 07/09/24 07:16 BP 122/57 L 07/09/24 07:16 Pulse Ox 96 07/09/24 07:16 O2 Del Method Nasal Cannula 07/09/24 07:16 O2 Flow Rate 4 07/09/24 07:16 Oxygen Flow Rate 5 07/07/24 14:56 BMI result Body Mass Index 82.3 Const: Other: Constitutional : interactive, not in distress, morbidly obese Cardiovascular : no JVP, no lower extremity edema Respiratory : bilateral chest movement, not in resp distress Gastrointestinal: soft, lax, Non tender Skin : Warm, Dry, less erythema in lower extremities, significant lymphedema but less drainage but still oozing clear\yellowish drainage, covered with dressing, ulceration of RLE Neurological : Alert & oriented , No focal deficit Objective Data Active Medications Acetaminophen (Acetaminophen 325 Mg Tablet) 650 mg PO Q6H PRN PRN Reason: Pain, Mild 1-3,fever,headache Last Admin: 07/08/24 09:52 Dose: 650 mg Documented By: RADHA Acetaminophen (Acetaminophen 325 Mg Tablet) 650 mg PO BEDTIME [facility] Last Admin: 07/08/24 20:44 Dose: 650 mg Documented By: WES Albuterol Sulfate (Albuterol Sulfate 90 Mcg 8 Gm Inhaler) 2 puff INHALE Q6H PRN PRN Reason: Shortness Of Breath Or Wheezing Calcium Carbonate (Calcium Carbonate 750 Mg Tab.Chew) 750 mg PO Q4H PRN PRN Reason: Heartburn Cyanocobalamin (Cyanocobalamin (Vitamin B-12) 1,000 Mcg/Ml Vial) 1,000 mcg IM Q28D [facility] Last Admin: 07/08/24 12:04 Dose: 1,000 mcg Documented By: RADHA Cyclobenzaprine HCl (Cyclobenzaprine Hcl 10 Mg Tablet) 20 mg PO TID [facility] Last Admin: 07/09/24 06:48 Dose: 20 mg Documented By: ZHANE Diphenhydramine HCl (Diphenhydramine Hcl 25 Mg Capsule) 50 mg PO BEDTIME [facility] Last Admin: 07/08/24 20:43 Dose: 50 mg Documented By: WES Enoxaparin Sodium (Enoxaparin Sodium 40 Mg/0.4 Ml Syringe) 40 mg SUBCUT Q24H [facility] Last Admin: 07/08/24 20:44 Dose: 40 mg Documented By: WES Fluticasone/Vilanterol (Fluticasone/Vilanterol 100/25 Blst.W.Dev) 1 puff INHALE RDAILY [facility] Last Admin: 07/09/24 08:06 Dose: Not Given Documented By: SARAH Non-Admin Reason: Patient Refused Hydrocortisone (Hydrocortisone 1 % Cream 28.35 Gm Tube) 1 appl TOPICAL BID [facility]; Protocol Last Admin: 07/08/24 23:05 Dose: Not Given Documented By: ASHLEY Non-Admin Reason: Patient Refused Hydromorphone HCl (Hydromorphone Hcl 0.5 Mg/0.5 Ml Syringe) 1 mg IVPUSH Q4H PRN; Protocol PRN Reason: Breakthrough Pain Last Admin: 07/09/24 08:41 Dose: 1 mg Documented By: ANA MARÍA Cefepime HCl (Maxipime) 2 gm in 50 mls @ 100 mls/hr IV Q8H [facility] Last Infusion: 07/09/24 07:20 Dose: Infused Documented By: ANA MARÍA Vancomycin HCl 1,500 mg/ (Sodium Chloride) 500 mls @ 333.333 mls/hr IV Q12H [facility] Last Infusion: 07/09/24 10:00 Dose: Infused Documented By: ANA MARÍA Insulin Human Lispro (Insulin Lispro 100 Unit/Ml 3 Ml Vial) 0 unit SUBCUT QIDACHS [facility]; Protocol Last Admin: 07/09/24 11:18 Dose: Not Given Documented By: ANA MARÍA Non-Admin Reason: No Insulin Coverage Lactic Acid (Ammonium Lactate 12 % Lotion 226 Gm Bottle) 1 appl TOPICAL BID [facility]; Protocol Levothyroxine Sodium (Levothyroxine Sodium 200 Mcg Tablet) 200 mcg PO DAILY@0600 [facility] Last Admin: 07/09/24 06:45 Dose: 200 mcg Documented By: ZHANE Levothyroxine Sodium (Levothyroxine Sodium 25 Mcg Tablet) 25 mcg PO DAILY@0600 [facility] Last Admin: 07/09/24 06:45 Dose: 25 mcg Documented By: ZHANE Loperamide HCl (Loperamide Hcl 2 Mg Capsule) 2 mg PO Q4H PRN PRN Reason: Diarrhea Last Admin: 07/08/24 16:35 Dose: 2 mg Documented By: RADHA Loratadine (Loratadine 10 Mg Tablet) 10 mg PO DAILY [facility] Last Admin: 07/09/24 08:25 Dose: 10 mg Documented By: ANA MARÍA Lorazepam (Lorazepam 1 Mg Tablet) 2 mg PO BEDTIME PRN PRN Reason: anxiety Last Admin: 07/08/24 20:43 Dose: 2 mg Documented By: WES Magnesium Hydroxide (Milk Of Magnesia 30 Ml Oral.Susp) 30 ml PO DAILY PRN PRN Reason: Constipation Melatonin (Melatonin 3 Mg Tablet) 6 mg PO BEDTIME PRN PRN Reason: Insomnia Montelukast Sodium (Montelukast Sodium 10 Mg Tablet) 10 mg PO BEDTIME [facility] Last Admin: 07/08/24 20:44 Dose: 10 mg Documented By: WES Nystatin (Nystatin Powder 15 Gm Bottle) 1 appl TOPICAL TID [facility]; Protocol Last Admin: 07/08/24 23:27 Dose: Not Given Documented By: ASHLEY Non-Admin Reason: Patient Refused Nystatin/Triamcinolone Acetonide (Nystatin/Triamcinolone Cream 15 Gm Tube) 1 appl TOPICAL BID [facility] Last Admin: 07/08/24 23:27 Dose: Not Given Documented By: ASHLEY Non-Admin Reason: Patient Refused Omeprazole (Omeprazole 20 Mg Capsule.) 20 mg PO BID [facility] Last Admin: 07/09/24 08:25 Dose: 20 mg Documented By: ANA MARÍA Ondansetron HCl (Ondansetron Hcl 4 Mg/2 Ml Vial) 4 mg IVPUSH Q8H PRN PRN Reason: Nausea and Vomiting Last Admin: 07/08/24 17:07 Dose: 4 mg Documented By: RADHA Pharmacy Consult (Consult Rx Vancomycin Dosing) 1 each MISCELLANE DAILY PRN PRN Reason: Consult order Prednisone (Prednisone 20 Mg Tablet) 20 mg PO DAILY [facility] Stop: 07/11/24 09:01 Sodium Chloride (0.9 % Sodium Chloride Flush 3 Ml Syringe) 3 ml IVFLUSH QSHIFT [facility] Last Admin: 07/09/24 08:24 Dose: 3 ml Documented By: ANA MARÍA Trazodone HCl (Trazodone Hcl 50 Mg Tablet) 150 mg PO BEDTIME PRN PRN Reason: sleep Labs 07/09/24 05:08 07/09/24 05:08 Labs: Laboratory Results - last 24 hr 07/08/24 07/08/24 07/08/24 03:37 16:17 16:41 MCV MCH MCHC RDW Plt Count MPV Immature Gran % (Auto) Neut % (Auto) Lymph % (Auto) [place] % (Auto) Eos % (Auto) Baso % (Auto) Lymph # (Auto) [place] # (Auto) Eos # (Auto) Baso # (Auto) Abs Immat Gran (auto) Absolute Neuts (auto) Absolute Nucleated RBC Nucleated RBC % (auto) Anion Gap Estim Creat Clear Calc Estimated GFR POC Glucose 104 Random Glucose Calcium Total Bilirubin 0.5 Direct Bilirubin 0.2 AST 41 H ALT 27 Alkaline Phosphatase 76 Total Protein 6.4 L Albumin 3.2 L Random Vancomycin 7.8 L 07/08/24 07/09/24 07/09/24 21:36 05:08 07:16 MCV 91.9 MCH 27.8 MCHC 30.3 L RDW 15.9 Plt Count 390 MPV 8.5 L Immature Gran % (Auto) 2.7 H Neut % (Auto) 55.5 Lymph % (Auto) 24.0 [place] % (Auto) 9.2 Eos % (Auto) 7.8 H Baso % (Auto) 0.8 Lymph # (Auto) 2.1 [place] # (Auto) 0.8 Eos # (Auto) 0.7 H Baso # (Auto) 0.1 Abs Immat Gran (auto) 0.24 H Absolute Neuts (auto) 4.9 Absolute Nucleated RBC 0.020 H Nucleated RBC % (auto) 0.2 Anion Gap 13 Estim Creat Clear Calc 182.1 Estimated GFR > 60 POC Glucose 132 H 142 H Random Glucose 140 H Calcium 7.7 L Total Bilirubin Direct Bilirubin AST ALT Alkaline Phosphatase Total Protein Albumin Random Vancomycin 07/09/24 11:08 MCV MCH MCHC RDW Plt Count MPV Immature Gran % (Auto) Neut % (Auto) Lymph % (Auto) [place] % (Auto) Eos % (Auto) Baso % (Auto) Lymph # (Auto) [place] # (Auto) Eos # (Auto) Baso # (Auto) Abs Immat Gran (auto) Absolute Neuts (auto) Absolute Nucleated RBC Nucleated RBC % (auto) Anion Gap Estim Creat Clear Calc Estimated GFR POC Glucose 129 H Random Glucose Calcium Total Bilirubin Direct Bilirubin AST ALT Alkaline Phosphatase Total Protein Albumin Random Vancomycin Microbiology Microbiology Results: Microbiology 07/07/24 16:06 Blood Culture - Preliminary Blood - Venous No growth after 24 hours. 07/07/24 15:47 Blood Culture - Preliminary Blood - Venous No growth after 24 hours. Assessment and Plan (1) Cellulitis of lower leg: Status: Acute (2) Chronic hypoxic respiratory failure: Status: Acute (3) Lymphedema: Status: Acute Plan 54-year-old female with history of CVA, mi, CHARITO on CPAP, chronic hypoxemic/hypercapnic respiratory failure, CHF, history of thyroid cancer s/p total thyroidectomy, GERD, pots, type 2 diabetes, lymphedema, who is morbidly obese with BMI greater than 82 admitted for further management of acute cellulitis of the right lower extremity Acute cellulitis RLE with background lymphedema/venous ulcers Not septic pending final cultures Continue IV vancomycin and cefepime (initiated 07/07) Pain management p.r.n. Wound RN consult Ammonium lactate lotion for dry skin Hydrocortisone cream and compression wraps to the bilateral lower extremities OT eval for lymphedema therapy Follow CBC, cultures Intertriginous candidiasis Nystatin t.i.d. Acute mild transaminitis Likely in setting of infection, fatty liver? follow LFT , trending down [id number] type 2 diabetes Controlled with most recent A1c 6.1% POC glucose, diabetic diet Sliding scale insulin Hold glipizide Hypothyroidism-postsurgical with history of thyroid cancer Levothyroxine CHARITO/obesity hypoventilation syndrome/chronic hypoxemic hypercapnic respiratory failure Continue home O2, goal 90-92% CPAP bedtime CAD/CVA/CHF No anginal chest pain, clinically no CHF exacerbation Continue p.o. meds Mood disorder Continue home medications GERD PPI Chronic normocytic anemia Baseline Super morbid obesity BMI 82.9, recent 100 lb weight loss. Encouraged ongoing weight loss efforts DVT prophylaxis-Lovenox Full code Patient requires inpatient stay overnight for management of acute extensive cellulitis of the right lower extremity affecting greater than >50% of lower extremity which will require IV antibiotics Quality Stroke Does the patient have a stroke diagnosis?: No VTE Prior VTE?: No VTE Risk Level:: Medical - moderate - high VTE Device Contraindication: Treatment Not Indicated VTE Drug Contraindication: N/A - Med Ordered
[2024-07-09] MEDS: predniSONE 20 MG TABLET PO (12:55)
[2024-07-09] MEDS: Ammonium Lactate 12 % Lotion 226 GM BOTTLE 1 APPL TOPICAL (12:56)
[2024-07-09] MEDS: Nystatin Powder 15 GM BOTTLE 1 APPL TOPICAL ×3 (12:56→22:54)
[2024-07-09] MEDS: Hydrocortisone 1 % Cream 28.35 GM TUBE 1 APPL TOPICAL ×2 (12:57→22:54)
[2024-07-09] MEDS: Nystatin/Triamcinolone Cream 15 GM TUBE 1 APPL TOPICAL ×2 (12:57→22:54)
[2024-07-09 15:02] VITALS: BP 139/66; PULSE 102; RESP 18; TEMP 36.4; O2SAT 97
[2024-07-09 16:43] LABS: Glucose, Whole Blood 185 mg/dL (60-115)
[2024-07-09 17:22] LABS: Vancomycin Random 14.5 mcg/mL (15-20)
--- NOTE | 2024-07-09 17:41 | HE.PHANOTE ---
Re: Rejio Good renal function, and improving. Trough returned at 14.5. Pt is therapeuitc. Continue current dose of 1,500 mg q12h, with predicted AUC 494, predicted trough 13.9. Next trough 07/10 @ 1600.
[2024-07-09] MEDS: Insulin Lispro 100 UNIT/ML 3 ML VIAL SUBCUT (18:09)
[2024-07-09] MEDS: Enoxaparin Sodium 40 MG/0.4 ML SYRINGE SUBCUT (18:11)
[2024-07-09 19:43] VITALS: BP 129/65; PULSE 101; RESP 20; TEMP 36.3; O2SAT 96
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
[2024-07-09 21:12] LABS: Glucose, Whole Blood 117 mg/dL (60-115)
[2024-07-09] MEDS: diphenhydrAMINE HCL 25 MG CAPSULE 50 MG PO (21:49)
[2024-07-09] MEDS: Acetaminophen 325 MG TABLET 650 MG PO (21:50)
[2024-07-09] MEDS: traZODone HCL 50 MG TABLET 150 MG PO (21:50)
[2024-07-09] MEDS: Montelukast Sodium 10 MG TABLET PO (21:52)
[2024-07-09] MEDS: LORazepam 1 MG TABLET 2 MG PO (21:52)
[2024-07-09 22:40] VITALS: RESP 16
[2024-07-10] VITALS (7 sets, daily range): BP systolic 105–118; BP diastolic 53–63; PULSE 99–101; RESP 16–20; TEMP 36.1–36.4; O2SAT 95–99
[2024-07-10] MEDS: 0.9 % Sodium Chloride Flush 3 ML SYRINGE IVFLUSH ×3 (00:29→23:31)
[2024-07-10] MEDS: HYDROmorphone HCl 0.5 MG/0.5 ML SYRINGE 1 MG IVPUSH ×4 (04:16→20:06)
[2024-07-10 06:01] LABS: Creatinine Clr Calc Pharmacy 187.8; Estimated Glomerular Filt Rate > 60
[2024-07-10] MEDS: cefEPime HCl/D5W 2 GM/50 ML PIGGYBACK IV ×3 (06:01→21:41)
[2024-07-10] MEDS: Cyclobenzaprine HCl 10 MG TABLET 20 MG PO ×3 (06:01→20:04)
[2024-07-10] MEDS: Levothyroxine Sodium 200 MCG TABLET PO (06:04)
[2024-07-10] MEDS: Levothyroxine Sodium 25 MCG TABLET PO (06:04)
[2024-07-10] MEDS: vancomycin HCL 1,500 MG in 0.9 % Sodium Chloride 500 ML 333.33 MG IV ×2 (06:42→18:10)
[2024-07-10 07:27] LABS: Glucose, Whole Blood 140 mg/dL (60-115)
--- NOTE | 2024-07-10 07:30 | P.PNIM_ITS ---
Subjective Subjective Date of Service: 07/10/24 Interval History: f/u on cellulitis of lower extremity with underlying lymphadema and morbid obesity the legs remains red Physical Exam 2 Vital Signs: Vital Signs: Last Vital Signs Temp 97.4 F 07/10/24 07:10 Pulse 101 H 07/10/24 07:10 Resp 17 07/10/24 07:10 BP 118/56 L 07/10/24 07:10 Pulse Ox 97 07/10/24 07:10 O2 Del Method Nasal Cannula 07/10/24 07:10 O2 Flow Rate 3 07/10/24 07:10 Oxygen Flow Rate 5 07/07/24 14:56 BMI result Body Mass Index 82.3 Const: Other: Constitutional : interactive, not in distress, morbidly obese Cardiovascular : no JVP, no lower extremity edema Respiratory : bilateral chest movement, not in resp distress Gastrointestinal: soft, lax, Non tender Skin : Warm, Dry, less erythema in lower extremities, significant lymphedema but less drainage but still oozing clear\yellowish drainage, covered with dressing, ulceration of RLE Neurological : Alert & oriented , No focal deficit Objective Data Active Medications Acetaminophen (Acetaminophen 325 Mg Tablet) 650 mg PO Q6H PRN PRN Reason: Pain, Mild 1-3,fever,headache Last Admin: 07/08/24 09:52 Dose: 650 mg Documented By: RADHA Acetaminophen (Acetaminophen 325 Mg Tablet) 650 mg PO BEDTIME [facility] Last Admin: 07/09/24 21:50 Dose: 650 mg Documented By: ZHANE Albuterol Sulfate (Albuterol Sulfate 90 Mcg 8 Gm Inhaler) 2 puff INHALE Q6H PRN PRN Reason: Shortness Of Breath Or Wheezing Calcium Carbonate (Calcium Carbonate 750 Mg Tab.Chew) 750 mg PO Q4H PRN PRN Reason: Heartburn Cyanocobalamin (Cyanocobalamin (Vitamin B-12) 1,000 Mcg/Ml Vial) 1,000 mcg IM Q28D [facility] Last Admin: 07/08/24 12:04 Dose: 1,000 mcg Documented By: RADHA Cyclobenzaprine HCl (Cyclobenzaprine Hcl 10 Mg Tablet) 20 mg PO TID [facility] Last Admin: 07/10/24 06:01 Dose: 20 mg Documented By: ZHANE Diphenhydramine HCl (Diphenhydramine Hcl 25 Mg Capsule) 50 mg PO BEDTIME [facility] Last Admin: 07/09/24 21:49 Dose: 50 mg Documented By: ZHANE Enoxaparin Sodium (Enoxaparin Sodium 40 Mg/0.4 Ml Syringe) 40 mg SUBCUT Q24H [facility] Last Admin: 07/09/24 18:11 Dose: 40 mg Documented By: ANA MARÍA Fluticasone/Vilanterol (Fluticasone/Vilanterol 100/ Blst.W.Dev) 1 puff INHALE RDAILY [facility] Last Admin: 07/09/24 08:06 Dose: Not Given Documented By: SARAH Non-Admin Reason: Patient Refused Hydrocortisone (Hydrocortisone 1 % Cream 28.35 Gm Tube) 1 appl TOPICAL BID [facility]; Protocol Last Admin: 07/09/24 22:54 Dose: 1 appl Documented By: ZHANE Hydromorphone HCl (Hydromorphone Hcl 0.5 Mg/0.5 Ml Syringe) 1 mg IVPUSH Q4H PRN; Protocol PRN Reason: Breakthrough Pain Last Admin: 07/10/24 04:16 Dose: 1 mg Documented By: ZHANE Cefepime HCl (Maxipime) 2 gm in 50 mls @ 100 mls/hr IV Q8H [facility] Last Infusion: 07/10/24 06:45 Dose: Infused Documented By: ZHANE Vancomycin HCl 1,500 mg/ (Sodium Chloride) 500 mls @ 333.333 mls/hr IV Q12H [facility] Last Admin: 07/10/24 06:42 Dose: 333.33 mls/hr Documented By: ZHANE Insulin Human Lispro (Insulin Lispro 100 Unit/Ml 3 Ml Vial) 0 unit SUBCUT QIDACHS [facility]; Protocol Last Admin: 07/09/24 21:57 Dose: Not Given Documented By: ZHANE Non-Admin Reason: No Insulin Coverage Lactic Acid (Ammonium Lactate 12 % Lotion 226 Gm Bottle) 1 appl TOPICAL BID [facility]; Protocol Last Admin: 07/09/24 12:56 Dose: 1 appl Documented By: ANA MARÍA Levothyroxine Sodium (Levothyroxine Sodium 200 Mcg Tablet) 200 mcg PO DAILY@0600 [facility] Last Admin: 07/10/24 06:04 Dose: 200 mcg Documented By: ZHANE Levothyroxine Sodium (Levothyroxine Sodium 25 Mcg Tablet) 25 mcg PO DAILY@0600 [facility] Last Admin: 07/10/24 06:04 Dose: 25 mcg Documented By: ZHANE Loperamide HCl (Loperamide Hcl 2 Mg Capsule) 2 mg PO Q4H PRN PRN Reason: Diarrhea Last Admin: 07/08/24 16:35 Dose: 2 mg Documented By: RADHA Loratadine (Loratadine 10 Mg Tablet) 10 mg PO DAILY [facility] Last Admin: 07/09/24 08:25 Dose: 10 mg Documented By: ANA MARÍA Lorazepam (Lorazepam 1 Mg Tablet) 2 mg PO BEDTIME PRN PRN Reason: anxiety Last Admin: 07/09/24 21:52 Dose: 2 mg Documented By: ZHANE Magnesium Hydroxide (Milk Of Magnesia 30 Ml Oral.Susp) 30 ml PO DAILY PRN PRN Reason: Constipation Melatonin (Melatonin 3 Mg Tablet) 6 mg PO BEDTIME PRN PRN Reason: Insomnia Montelukast Sodium (Montelukast Sodium 10 Mg Tablet) 10 mg PO BEDTIME [facility] Last Admin: 07/09/24 21:52 Dose: 10 mg Documented By: ZHANE Nystatin (Nystatin Powder 15 Gm Bottle) 1 appl TOPICAL TID [facility]; Protocol Last Admin: 07/09/24 22:54 Dose: 1 appl Documented By: ZHANE Nystatin/Triamcinolone Acetonide (Nystatin/Triamcinolone Cream 15 Gm Tube) 1 appl TOPICAL BID [facility] Last Admin: 07/09/24 22:54 Dose: 1 appl Documented By: ZHANE Omeprazole (Omeprazole 20 Mg Capsule.Dr) 20 mg PO BID [facility] Last Admin: 07/09/24 21:57 Dose: 20 mg Documented By: ZHANE Ondansetron HCl (Ondansetron Hcl 4 Mg/2 Ml Vial) 4 mg IVPUSH Q8H PRN PRN Reason: Nausea and Vomiting Last Admin: 07/08/24 17:07 Dose: 4 mg Documented By: RADHA Pharmacy Consult (Consult Rx Vancomycin Dosing) 1 each MISCELLANE DAILY PRN PRN Reason: Consult order Prednisone (Prednisone 20 Mg Tablet) 20 mg PO DAILY [facility] Stop: 07/11/24 09:01 Last Admin: 07/09/24 12:55 Dose: 20 mg Documented By: ARMSTRKanwal Sodium Chloride (0.9 % Sodium Chloride Flush 3 Ml Syringe) 3 ml IVFLUSH QSHIFT [facility] Last Admin: 07/10/24 00:29 Dose: 3 ml Documented By: ZHANE Trazodone HCl (Trazodone Hcl 50 Mg Tablet) 150 mg PO BEDTIME PRN PRN Reason: sleep Last Admin: 07/09/24 21:50 Dose: 150 mg Documented By: ZHANE Labs 07/10/24 05:05 07/10/24 05:05 Labs: Laboratory Results - last 24 hr 07/09/24 07/09/24 07/09/24 11:08 16:29 16:41 Hold Purple Top Estim Creat Clear Calc Estimated GFR POC Glucose 129 H 185 H Random Vancomycin 14.5 L 07/09/24 07/10/24 07/10/24 21:05 05:05 07:14 Hold Purple Top SEE NOTE Estim Creat Clear Calc 187.8 Estimated GFR > 60 POC Glucose 117 H 140 H Random Vancomycin Microbiology Microbiology Results: Microbiology 07/07/24 16:06 Blood Culture - Preliminary Blood - Venous No growth after 48 hours. 07/07/24 15:47 Blood Culture - Preliminary Blood - Venous No growth after 48 hours. Assessment and Plan (1) Cellulitis of lower leg: Status: Acute (2) Chronic hypoxic respiratory failure: Status: Acute (3) Lymphedema: Status: Acute Plan 54-year-old female with history of CVA, mi, CHARITO on CPAP, chronic hypoxemic/hypercapnic respiratory failure, CHF, history of thyroid cancer s/p total thyroidectomy, GERD, pots, type 2 diabetes, lymphedema, who is morbidly obese with BMI greater than 82 admitted for further management of acute cellulitis of the right lower extremity Acute severe cellulitis RLE with background lymphedema/venous ulcers, no sepsis blood cultures negative Continue IV vancomycin and cefepime (initiated 07/07) Pain management p.r.n. Wound RN consult, ID consult Ammonium lactate lotion for dry skin Hydrocortisone cream and compression wraps to the bilateral lower extremities OT eval for lymphedema therapy Follow CBC, cultures Intertriginous candidiasis Nystatin t.i.d. Acute mild transaminitisLikely in setting of infection, fatty liver? follow LFT , trending down [id number] type 2 diabetes Controlled with most recent A1c 6.1% POC glucose, diabetic diet Sliding scale insulin Hold glipizide Hypothyroidism-postsurgical with history of thyroid cancer Levothyroxinem, check tsh CHARITO/obesity hypoventilation syndrome/chronic hypoxemic hypercapnic respiratory failure Continue home O2, goal 90-92% CPAP bedtime CAD/CVA/CHF No anginal chest pain, clinically no CHF exacerbation Continue p.o. meds Mood disorder Continue home medications GERD PPI Chronic normocytic anemia Baseline Super morbid obesity BMI 82.9, recent 100 lb weight loss. Encouraged ongoing weight loss efforts DVT prophylaxis-Lovenox Full code need for hospitalization: iv Abx for cellulitis that is severe Quality Stroke Does the patient have a stroke diagnosis?: No VTE Prior VTE?: No VTE Risk Level:: Medical - moderate - high VTE Device Contraindication: Treatment Not Indicated VTE Drug Contraindication: N/A - Med Ordered
[2024-07-10 07:37] LABS: MANUAL DIFF FLAG NO
[2024-07-10 07:42] LABS: Basophils Percent Auto 0.4 % (0-2); Eosinophils Absolute Auto 0.5 X10*3/uL (0.0-0.4); Eosinophils Percent Auto 4.8 % (0-4); Hematocrit 31.3 % (37.0-47.0); Hemoglobin 9.8 g/dl (12.0-16.0); Imm Gran Abs Auto 0.22 X10*3/uL (0.00-0.03); Imm Gran Pct Auto 2.3 % (0.0-0.4); Lymphocytes Absolute Auto 1.9 X10*3/uL (1.2-4.9); Lymphocytes Percent Auto 19.5 % (20-40); Mean Corpuscular HGB Conc 31.3 g/dl (31.0-35.0); Mean Corpuscular Hemoglobin 28.7 pg (27.0-33.0); Mean Corpuscular Volume 91.8 fL (80.0-98.0); Mean Platelet Volume 8.5 fL (9.4-12.3); Monocytes Absolute Auto 0.8 X10*3/uL (0.1-1.2); Monocytes Percent Auto 7.8 % (2-11); NRBC Pct Auto 0.2 /100WBC (0.0-0.2); Neutrophils Absolute Auto 6.4 x10*3/uL (2.0-8.3); Neutrophils Percent Auto 65.2 % (45-73); Platelet Count 404 X10*3/uL (160-400); Red Blood Count 3.41 X10*6/uL (4.20-5.50); Red Cell Distribution Width 15.9 % (11.0-16.0); White Blood Count 9.7 X10*3/uL (4.8-10.8)
[2024-07-10 07:46] LABS: Anion Gap 14 (12-20); Carbon Dioxide 30 mmol/L (22-29); Chloride 99 mmol/L (96-108); Potassium 3.5 mmol/L (3.3-5.1); Sodium 139 mmol/L (135-145)
[2024-07-10] MEDS: oxyCODONE HCl Immed Release 5 MG TABLET PO ×2 (08:04→14:07)
[2024-07-10] MEDS: predniSONE 20 MG TABLET PO (09:23)
[2024-07-10] MEDS: Loratadine 10 MG TABLET PO (09:23)
[2024-07-10] MEDS: Omeprazole 20 MG CAPSULE.DR PO ×2 (09:23→20:05)
[2024-07-10 09:51] LABS: Free T4 (Free Thyroxine) 0.97 ng/dL (0.71-1.85)
--- NOTE | 2024-07-10 10:27 | MHC.CLN ---
NUTRITION CONSULT-ROUTINE. PATIENT WITH LOWER EXTREMITY CELLULITIS-NOT PRESSURE RELATED. DIET=DIABETIC 2000 KCALS. NO ADDITIONAL NUTRITION INTERVENTIONS.
[2024-07-10 11:26] LABS: Glucose, Whole Blood 146 mg/dL (60-115)
--- NOTE | 2024-07-10 12:32 | MHC.CM.PN ---
per rounds pt is not medically ready for dc dc plan remains dc plkan remains for home
--- NOTE | 2024-07-10 13:44 | W.PM.IDCN ---
History of Present Illness Data of Consult Service Date: 07/10/24 [facility] Primary Care Provider: Janessa Tian MD [facility] Reason for consult: right lower extremity lymphedema She reports sent over by Wound Care for worsening redness RLE. She has lymphedema and sees them. SHe has chronic hypoxic respiratory failure. She is upset about her wound dressings and wants to talk to nurse only,not me. Review of Systems Review of Systems: Yes all other systems are reviewed and are negative [facility] Past Medical History Medical History Hypothyroidism Lymphedema Type 2 diabetes mellitus CVA (cerebral vascular accident) Myocardial ischemia CHARITO on CPAP Thyroid cancer BMI 60.0-69.9, adult Berrios's palsy GERD (gastroesophageal reflux disease) delivery delivered Right knee meniscal tear Morbid obesity POTS (postural orthostatic tachycardia syndrome) Family History Family History Father No problems noted. Mother Heart disease History of hypothyroidism Sister No problems noted. Brother No problems noted. Son No problems noted. Son No problems noted. Son No problems noted. Family history: reviewed and not pertinent Surgical History Surgical History S/P cholecystectomy H/O total thyroidectomy S/P right knee arthroscopy Social History Social History Household Members: Spouse Housing: House Do you presently have visiting nurse or other home services: Yes ([facility]NA's and [facility] [employer].) Alcohol intake: never Patient Tobacco Use Status: Former Tobacco user e-Cigarette/Vaping Use: Never Used Second Hand Smoke Exposure: No Substance Use Type: Marijuana service: No Current occupational status: disabled Cognitive needs: No Hearing needs: No Vision needs: No Meds Allergies Allergy/AdvReac Type Severity Reaction Status Date / Time tirzepatide [From Mounjaro] Allergy Severe Unknown Verified 07/07/24 14:58 soy Allergy Mild hives Verified 07/07/24 14:58 amoxicillin Allergy Unknown anaphylaxis Verified 07/07/24 14:58 azithromycin Allergy Unknown anaphylaxis Verified 07/07/24 14:58 [Zithromax Z-Chris] Darvocet A500 Allergy Unknown hives Verified 07/07/24 14:58 penicillin V Allergy Unknown anaphylaxis Verified 07/07/24 14:58 Erythromycin Allergy Unknown anaphylaxis Uncoded 07/07/24 14:58 Rabbits Allergy Unknown anaphylaxis Uncoded 07/07/24 14:58 Tanzanian cheese Allergy Unknown anaphylaxis Uncoded 07/07/24 14:58 Active Medications: Current Medications Acetaminophen (Acetaminophen 325 Mg Tablet) 650 mg PO Q6H PRN PRN Reason: Pain, Mild 1-3,fever,headache Last Admin: 07/08/24 09:52 Dose: 650 mg Acetaminophen (Acetaminophen 325 Mg Tablet) 650 mg PO BEDTIME [facility] Last Admin: 07/09/24 21:50 Dose: 650 mg Albuterol Sulfate (Albuterol Sulfate 90 Mcg 8 Gm Inhaler) 2 puff INHALE Q6H PRN PRN Reason: Shortness Of Breath Or Wheezing Calcium Carbonate (Calcium Carbonate 750 Mg Tab.Chew) 750 mg PO Q4H PRN PRN Reason: Heartburn Cyanocobalamin (Cyanocobalamin (Vitamin B-12) 1,000 Mcg/Ml Vial) 1,000 mcg IM Q28D [facility] Last Admin: 07/08/24 12:04 Dose: 1,000 mcg Cyclobenzaprine HCl (Cyclobenzaprine Hcl 10 Mg Tablet) 20 mg PO TID [facility] Last Admin: 07/10/24 06:01 Dose: 20 mg Diphenhydramine HCl (Diphenhydramine Hcl 25 Mg Capsule) 50 mg PO BEDTIME [facility] Last Admin: 07/09/24 21:49 Dose: 50 mg Enoxaparin Sodium (Enoxaparin Sodium 40 Mg/0.4 Ml Syringe) 40 mg SUBCUT Q24H [facility] Last Admin: 07/09/24 18:11 Dose: 40 mg Fluticasone/Vilanterol (Fluticasone/Vilanterol 100/25 Blst.W.Dev) 1 puff INHALE RDAILY [facility] Last Admin: 07/10/24 08:19 Dose: Not Given Hydrocortisone (Hydrocortisone 1 % Cream 28.35 Gm Tube) 1 appl TOPICAL BID [facility]; Protocol Last Admin: 07/10/24 10:32 Dose: Not Given Hydromorphone HCl (Hydromorphone Hcl 0.5 Mg/0.5 Ml Syringe) 1 mg IVPUSH Q4H PRN; Protocol PRN Reason: Pain, Severe (Pain Scale 7-10) Last Admin: 07/10/24 09:46 Dose: 1 mg Cefepime HCl (Maxipime) 2 gm in 50 mls @ 100 mls/hr IV Q8H [facility] Last Infusion: 07/10/24 06:45 Dose: Infused Vancomycin HCl 1,500 mg/ (Sodium Chloride) 500 mls @ 333.333 mls/hr IV Q12H [facility] Last Infusion: 07/10/24 09:27 Dose: Infused Insulin Human Lispro (Insulin Lispro 100 Unit/Ml 3 Ml Vial) 0 unit SUBCUT QIDACHS [facility]; Protocol Last Admin: 07/10/24 11:38 Dose: Not Given Lactic Acid (Ammonium Lactate 12 % Lotion 226 Gm Bottle) 1 appl TOPICAL BID [facility]; Protocol Last Admin: 07/10/24 10:32 Dose: Not Given Levothyroxine Sodium (Levothyroxine Sodium 200 Mcg Tablet) 200 mcg PO DAILY@0600 [facility] Last Admin: 07/10/24 06:04 Dose: 200 mcg Levothyroxine Sodium (Levothyroxine Sodium 25 Mcg Tablet) 25 mcg PO DAILY@0600 [facility] Last Admin: 07/10/24 06:04 Dose: 25 mcg Loperamide HCl (Loperamide Hcl 2 Mg Capsule) 2 mg PO Q4H PRN PRN Reason: Diarrhea Last Admin: 07/08/24 16:35 Dose: 2 mg Loratadine (Loratadine 10 Mg Tablet) 10 mg PO DAILY [facility] Last Admin: 07/10/24 09:23 Dose: 10 mg Lorazepam (Lorazepam 1 Mg Tablet) 2 mg PO BEDTIME PRN PRN Reason: anxiety Last Admin: 07/09/24 21:52 Dose: 2 mg Magnesium Hydroxide (Milk Of Magnesia 30 Ml Oral.Susp) 30 ml PO DAILY PRN PRN Reason: Constipation Melatonin (Melatonin 3 Mg Tablet) 6 mg PO BEDTIME PRN PRN Reason: Insomnia Montelukast Sodium (Montelukast Sodium 10 Mg Tablet) 10 mg PO BEDTIME [facility] Last Admin: 07/09/24 21:52 Dose: 10 mg Nystatin (Nystatin Powder 15 Gm Bottle) 1 appl TOPICAL TID [facility]; Protocol Last Admin: 07/10/24 10:33 Dose: Not Given Nystatin/Triamcinolone Acetonide (Nystatin/Triamcinolone Cream 15 Gm Tube) 1 appl TOPICAL BID [facility] Last Admin: 07/10/24 10:33 Dose: Not Given Omeprazole (Omeprazole 20 Mg Capsule.Dr) 20 mg PO BID [facility] Last Admin: 07/10/24 09:23 Dose: 20 mg Ondansetron HCl (Ondansetron Hcl 4 Mg/2 Ml Vial) 4 mg IVPUSH Q8H PRN PRN Reason: Nausea and Vomiting Last Admin: 07/08/24 17:07 Dose: 4 mg Oxycodone HCl (Oxycodone Hcl Immed Release 5 Mg Tablet) 5 mg PO Q6H PRN PRN Reason: Pain, Moderate(Pain Scale 4-6) Last Admin: 07/10/24 08:04 Dose: 5 mg Pharmacy Consult (Consult Rx Vancomycin Dosing) 1 each MISCELLANE DAILY PRN PRN Reason: Consult order Prednisone (Prednisone 20 Mg Tablet) 20 mg PO DAILY [facility] Stop: 07/11/24 09:01 Last Admin: 07/10/24 09:23 Dose: 20 mg Sodium Chloride (0.9 % Sodium Chloride Flush 3 Ml Syringe) [facility] Last Admin: 07/10/24 09:43 Dose: Not Given Trazodone HCl (Trazodone Hcl 50 Mg Tablet) 150 mg PO BEDTIME PRN PRN Reason: sleep Last Admin: 07/09/24 21:50 Dose: 150 mg Home Medications ?Medication ?Instructions ?Recorded ?Confirmed ?Last Taken ?Type omeprazole 20 mg capsule,delayed 20 mg PO BID 01/18/20 07/07/24 07/07/24 History release albuterol sulfate 90 mcg/actuation 2 puff inhalation Q6H PRN 08/20/23 07/07/24 Unknown History aerosol inhaler Shortness Of Breath Or Wheezing bumetanide 1 mg tablet 1 mg PO DAILY PRN Fluid Retention 07/07/24 07/07/24 07/07/24 History cyclobenzaprine 10 mg tablet 20 mg PO TID 07/07/24 07/07/24 07/07/24 History diphenhydramine 25 2 tab PO BEDTIME 07/07/24 07/07/24 07/06/24 History mg-acetaminophen 500 mg tablet (Tylenol PM Extra Strength) fluticasone 250 mcg-salmeterol 50 1 inh inhalation BID 07/07/24 07/07/24 Unknown History mcg/dose blistr powdr for inhalation (Advair Diskus) lorazepam 1 mg tablet 2 mg PO BEDTIME PRN anxiety 07/07/24 07/07/24 Unknown History Physical Exam Vital Signs: Vital Signs: Last Vital Signs Temp 97.4 F 07/10/24 07:10 Pulse 99 07/10/24 09:45 Resp 17 07/10/24 07:10 BP 105/55 L 07/10/24 09:45 Pulse Ox 97 07/10/24 07:10 O2 Del Method Nasal Cannula 07/10/24 07:10 O2 Flow Rate 3 07/10/24 07:10 Oxygen Flow Rate 5 07/07/24 14:56 BMI result Body Mass Index 82.3 Const: General: cooperative HEENT: Head: Yes normal to inspection Face and sinus: Yes normal facial exam Mouth: Normal oral and palatal mucosa present Teeth and gingiva: dentition normal Eyes: General: appearance normal, both eyes and all related structures Pupils: Equal, round and reactive pupils present Resp: Effort & Inspection: normal respiratory effort Cardio: Rate: regular rate Rhythm: regular rhythm GI: Palpation (GI): Soft to palpation and nontender : General: Yes no CVA tenderness Back/Spine/Pelvis: Back: no CVA tenderness Skin: General skin exam: no rashes or lesions noted Neuro: General: moves all extremities Cranial nerves: Yes Equal, round and reactive pupils present Extrem: Other: weeping lower extremity,right Psych: Appearance: grossly normal Results Labs 07/10/24 05:05 07/10/24 05:05 Labs: Short CBC 07/10/24 Range/Units 05:05 WBC 9.7 (4.8-10.8) X10*3/uL Hgb 9.8 L (12.0-16.0) g/dl Hct 31.3 L (37.0-47.0) % Plt Count 404 H (160-400) X10*3/uL BMP 07/10/24 05:05 Sodium 139 Potassium 3.5 Chloride 99 Carbon Dioxide 30 H Creatinine 0.64 Microbiology Microbiology Results: Microbiology 07/07/24 16:06 Blood - Venous Blood Culture - Preliminary No growth after 48 hours. 07/07/24 15:47 Blood - Venous Blood Culture - Preliminary No growth after 48 hours. Assessment and Plan (1) Lymphedema: Status: Acute Plan Theres no fever or leukocytosis Area looks like weeping from lymphedema Change to po Doxycycline within a day or so for 10 d
[2024-07-10] MEDS: Nystatin Powder 15 GM BOTTLE 1 APPL TOPICAL ×2 (14:09→21:47)
--- NOTE | 2024-07-10 15:27 | HO.WOUND ---
Wound Consult: Initial 54yr old? female admitted to [facility] on 07/07/24 18:23 - See progress notes and H&P for detailed history.? Wound consult placed for Bilateral Lower Legs.? Patient agreeable to assessment and photo documentation.? Patient reports she has difficulty at home with care. She reports she has not showered in 3 years due to not fitting in her bathroom. She reports she has treated at the wound clinic in the past for lower leg lymphedema and that they healed in the past. She reports she was prescribed Lymphedema pumps but only used them once and then reports she lost the plug for the machine. She was advised to seek care from a recording studio intern, out pt wound clinic and follow up Lymphedema pump specialist at the time of d/c. Bilateral Lower Legs Etiology: Lymphedema ??Present on Admission Wound Bed: various stages of wound bed - red moist clean overall Drainage / Odor: yellow drainage noted on dressing - gauze was stuck to wound beds Edges: ? irregular Joanna wound: ?Lymphedema Pain: painful to touch Goals of Treatment: ? Elevate and moist wound healing and drainage absorption Bilateral Posterior thighs and Intergluteal and buttocks assessed for MASD and Fungal dermatitis - area remains with scattered areas of tissue loss, patient reports itching and moist desquamation noted. Antifungal powder applied after cleansing. Recommendations: 1. Turn and Reposition every 2 hours and as needed for patient comfort.? Use pillows or wedges to support off loading positions. 2. Off Load all bony prominences with use of pillows and heel boots if needed.? Apply Preventative foams where needed. ? 3. Monitor for incontinence and moisture control, use barrier creams when needed for prevention and treatment. 4. Provide adequate and supplemental nutrition.? 5. Order Bariatric Bed. 6. When applicable maintain blood glucose levels per Providers order. Posterior Thighs, Buttock and Intergluteal - Cleanse with Ph Balanced wipes or Allie [place]. Pat dry. Apply Antifungal powder or cream per provider orders followed by triad barrier cream. apply twice daily. Bilateral Lower Legs - Elevate lower legs - Cleanse with NS, pat dry. Apply vaseline to lower legs, cover open wound beds with impregnated gauze or xeroform, followed by dry gauze, ABD pads and Elastic netting to secure in place. Change Daily. Re-consult wound care Nurse for wound deterioration or wound changes.
[2024-07-10 16:29] LABS: Glucose, Whole Blood 151 mg/dL (60-115)
[2024-07-10] MEDS: Insulin Lispro 100 UNIT/ML 3 ML VIAL SUBCUT (17:13)
[2024-07-10 17:41] LABS: Vancomycin Random 12.7 mcg/mL (15-20)
--- NOTE | 2024-07-10 17:48 | HE.PHANOTE ---
RE: VANCO DOSING Trough came back as 12.7 mg/L and renal function is stable. Continue with dose of 1500 mg q12h, next trough is scheduled for 07/11/24 @1600.
[2024-07-10] MEDS: Enoxaparin Sodium 40 MG/0.4 ML SYRINGE SUBCUT (18:14)
[2024-07-10] MEDS: diphenhydrAMINE HCL 25 MG CAPSULE 50 MG PO (20:05)
[2024-07-10] MEDS: Montelukast Sodium 10 MG TABLET PO (20:05)
[2024-07-10] MEDS: Acetaminophen 325 MG TABLET 650 MG PO (20:05)
[2024-07-10 20:11] LABS: Glucose, Whole Blood 128 mg/dL (60-115)
[2024-07-10] MEDS: LORazepam 1 MG TABLET 2 MG PO (20:34)
[2024-07-10] MEDS: traZODone HCL 50 MG TABLET 150 MG PO (20:34)
[2024-07-10] MEDS: Nystatin/Triamcinolone Cream 15 GM TUBE 1 APPL TOPICAL (21:47)
[2024-07-11] MEDS: HYDROmorphone HCl 0.5 MG/0.5 ML SYRINGE 1 MG IVPUSH ×4 (02:21→21:57)
[2024-07-11 02:24] VITALS: BP 118/55; PULSE 101; RESP 20; TEMP 36.2; O2SAT 96
[2024-07-11 02:52] VITALS: BP 107/58; PULSE 96; RESP 20; TEMP 36.6; O2SAT 94
[2024-07-11] MEDS: Levothyroxine Sodium 25 MCG TABLET PO (05:19)
[2024-07-11] MEDS: Levothyroxine Sodium 200 MCG TABLET PO (05:19)
[2024-07-11] MEDS: cefEPime HCl/D5W 2 GM/50 ML PIGGYBACK IV (05:20)
[2024-07-11] MEDS: vancomycin HCL 1,500 MG in 0.9 % Sodium Chloride 500 ML 333.33 MG IV (06:06)
[2024-07-11 07:16] VITALS: BP 116/60; PULSE 103; RESP 18; TEMP 36.4; O2SAT 95
[2024-07-11 07:48] LABS: Glucose, Whole Blood 142 mg/dL (60-115)
--- NOTE | 2024-07-11 07:52 | HO.PM.IMPN ---
Subjective Subjective Date of Service: 07/11/24 Interval History: f/u on cellulitis of lower extremity with underlying lymphadema and morbid obesity the legs remains red with no signficant change Physical Exam Vital Signs: Vital Signs: Last Vital Signs Temp 97.5 F 07/11/24 07:16 Pulse 103 H 07/11/24 07:16 Resp 18 07/11/24 07:16 BP 116/60 07/11/24 07:16 Pulse Ox 95 07/11/24 07:16 O2 Del Method Nasal Cannula 07/11/24 07:16 O2 Flow Rate 3 07/11/24 07:16 Oxygen Flow Rate 5 07/07/24 14:56 BMI result Body Mass Index 82.3 Const: Other: Constitutional : interactive, not in distress, morbidly obese Cardiovascular : no JVP, no lower extremity edema Respiratory : bilateral chest movement, not in resp distress Gastrointestinal: soft, lax, Non tender Skin : Warm, Dry, less erythema in lower extremities, significant lymphedema but less drainage but still oozing clear\yellowish drainage, covered with dressing, ulceration of RLE Neurological : Alert & oriented , No focal deficit Objective Data Active Medications Acetaminophen (Acetaminophen 325 Mg Tablet) 650 mg PO Q6H PRN PRN Reason: Pain, Mild 1-3,fever,headache Last Admin: 07/08/24 09:52 Dose: 650 mg Documented By: RADHA Acetaminophen (Acetaminophen 325 Mg Tablet) 650 mg PO BEDTIME [facility] Last Admin: 07/10/24 20:05 Dose: 650 mg Documented By: REGGIE Albuterol Sulfate (Albuterol Sulfate 90 Mcg 8 Gm Inhaler) 2 puff INHALE Q6H PRN PRN Reason: Shortness Of Breath Or Wheezing Calcium Carbonate (Calcium Carbonate 750 Mg Tab.Chew) 750 mg PO Q4H PRN PRN Reason: Heartburn Cyanocobalamin (Cyanocobalamin (Vitamin B-12) 1,000 Mcg/Ml Vial) 1,000 mcg IM Q28D [facility] Last Admin: 07/08/24 12:04 Dose: 1,000 mcg Documented By: RADHA Cyclobenzaprine HCl (Cyclobenzaprine Hcl 10 Mg Tablet) 20 mg PO TID [facility] Last Admin: 07/10/24 20:04 Dose: 20 mg Documented By: REGGIE Diphenhydramine HCl (Diphenhydramine Hcl 25 Mg Capsule) 50 mg PO BEDTIME [facility] Last Admin: 07/10/24 20:05 Dose: 50 mg Documented By: REGGIE Enoxaparin Sodium (Enoxaparin Sodium 40 Mg/0.4 Ml Syringe) 40 mg SUBCUT Q24H [facility] Last Admin: 07/10/24 18:14 Dose: 40 mg Documented By: BAILEY Fluticasone/Vilanterol (Fluticasone/Vilanterol 100/25 Blst.W.Dev) 1 puff INHALE RDAILY [facility] Last Admin: 07/10/24 08:19 Dose: Not Given Documented By: SARAH Non-Admin Reason: Patient Refused Hydrocortisone (Hydrocortisone 1 % Cream 28.35 Gm Tube) 1 appl TOPICAL BID [facility]; Protocol Last Admin: 07/10/24 21:47 Dose: Not Given Documented By: REGGIE Non-Admin Reason: wound nurse dressed earlier today Hydromorphone HCl (Hydromorphone Hcl 0.5 Mg/0.5 Ml Syringe) 1 mg IVPUSH Q4H PRN; Protocol PRN Reason: Pain, Severe (Pain Scale 7-10) Last Admin: 07/11/24 02:21 Dose: 1 mg Documented By: REGGIE Cefepime HCl (Maxipime) 2 gm in 50 mls @ 100 mls/hr IV Q8H [facility] Last Infusion: 07/11/24 05:51 Dose: Infused Documented By: REGGIE Vancomycin HCl 1,500 mg/ (Sodium Chloride) 500 mls @ 333.333 mls/hr IV Q12H [facility] Last Infusion: 07/11/24 07:42 Dose: Infused Documented By: RIGO Insulin Human Lispro (Insulin Lispro 100 Unit/Ml 3 Ml Vial) 0 unit SUBCUT QIDACHS [facility]; Protocol Last Admin: 07/11/24 07:23 Dose: Not Given Documented By: RIGO Non-Admin Reason: No Insulin Coverage Lactic Acid (Ammonium Lactate 12 % Lotion 226 Gm Bottle) 1 appl TOPICAL BID [facility]; Protocol Last Admin: 07/10/24 21:47 Dose: Not Given Documented By: REGGIE Non-Admin Reason: wound nurse dressed earlier today Levothyroxine Sodium (Levothyroxine Sodium 200 Mcg Tablet) 200 mcg PO DAILY@0600 [facility] Last Admin: 07/11/24 05:19 Dose: 200 mcg Documented By: REGGIE Levothyroxine Sodium (Levothyroxine Sodium 25 Mcg Tablet) 25 mcg PO DAILY@0600 [facility] Last Admin: 07/11/24 05:19 Dose: 25 mcg Documented By: REGGIE Loperamide HCl (Loperamide Hcl 2 Mg Capsule) 2 mg PO Q4H PRN PRN Reason: Diarrhea Last Admin: 07/08/24 16:35 Dose: 2 mg Documented By: RADHA Loratadine (Loratadine 10 Mg Tablet) 10 mg PO DAILY [facility] Last Admin: 07/10/24 09:23 Dose: 10 mg Documented By: [facility] Lorazepam (Lorazepam 1 Mg Tablet) 2 mg PO BEDTIME PRN PRN Reason: anxiety Last Admin: 07/10/24 20:34 Dose: 2 mg Documented By: REGGIE Magnesium Hydroxide (Milk Of Magnesia 30 Ml Oral.Susp) 30 ml PO DAILY PRN PRN Reason: Constipation Melatonin (Melatonin 3 Mg Tablet) 6 mg PO BEDTIME PRN PRN Reason: Insomnia Montelukast Sodium (Montelukast Sodium 10 Mg Tablet) 10 mg PO BEDTIME [facility] Last Admin: 07/10/24 20:05 Dose: 10 mg Documented By: REGGIE Nystatin (Nystatin Powder 15 Gm Bottle) 1 appl TOPICAL TID [facility]; Protocol Last Admin: 07/10/24 21:47 Dose: 1 appl Documented By: REGGIE Nystatin/Triamcinolone Acetonide (Nystatin/Triamcinolone Cream 15 Gm Tube) 1 appl TOPICAL BID [facility] Last Admin: 07/10/24 21:47 Dose: 1 appl Documented By: REGGIE Omeprazole (Omeprazole 20 Mg Capsule.Dr) 20 mg PO BID [facility] Last Admin: 07/10/24 20:05 Dose: 20 mg Documented By: REGGIE Ondansetron HCl (Ondansetron Hcl 4 Mg/2 Ml Vial) 4 mg IVPUSH Q8H PRN PRN Reason: Nausea and Vomiting Last Admin: 07/08/24 17:07 Dose: 4 mg Documented By: RADHA Oxycodone HCl (Oxycodone Hcl Immed Release 5 Mg Tablet) 5 mg PO Q6H PRN PRN Reason: Pain, Moderate(Pain Scale 4-6) Last Admin: 07/10/24 14:07 Dose: 5 mg Documented By: MARIAM Pharmacy Consult (Consult Rx Vancomycin Dosing) 1 each MISCELLANE DAILY PRN PRN Reason: Consult order Prednisone (Prednisone 20 Mg Tablet) 20 mg PO DAILY [facility] Stop: 07/11/24 09:01 Last Admin: 07/10/24 09:23 Dose: 20 mg Documented By: NIKOLAS Sodium Chloride (0.9 % Sodium Chloride Flush 3 Ml Syringe) 3 ml IVFLUSH QSHIFT [facility] Last Admin: 07/11/24 07:24 Dose: Not Given Documented By: RIGO Non-Admin Reason: IV Running Trazodone HCl (Trazodone Hcl 50 Mg Tablet) 150 mg PO BEDTIME PRN PRN Reason: sleep Last Admin: 07/10/24 20:34 Dose: 150 mg Documented By: REGGIE Labs 07/10/24 05:05 07/10/24 05:05 Labs: Laboratory Results - last 24 hr 07/10/24 07/10/24 07/10/24 05:05 11:21 16:26 POC Glucose 146 H 151 H TSH 17.90 H Free T4 0.97 Random Vancomycin 07/10/24 07/10/24 07/11/24 17:20 19:38 07:15 POC Glucose 128 H 142 H TSH Free T4 Random Vancomycin 12.7 L Assessment and Plan (1) Cellulitis of lower leg: Status: Acute (2) Chronic hypoxic respiratory failure: Status: Acute (3) Lymphedema: Status: Acute Plan 54-year-old female with history of CVA, mi, CHARITO on CPAP, chronic hypoxemic/hypercapnic respiratory failure, CHF, history of thyroid cancer s/p total thyroidectomy, GERD, pots, type 2 diabetes, lymphedema, who is morbidly obese with BMI greater than 82 admitted for further management of acute cellulitis of the right lower extremity Acute severe cellulitis RLE with background lymphedema/venous ulcers, no sepsis blood cultures negative Continue IV vancomycin and cefepime (initiated 07/07), change to PO doxy per ID recommendation for 10 days Pain management p.r.n. Wound care following see note and recommendation Intertriginous candidiasis Nystatin t.i.d. Acute mild transaminitisLikely in setting of infection, fatty liver? follow LFT , trending down [id number]-[id number] type 2 diabetes Controlled with most recent A1c 6.1% POC glucose, diabetic diet Sliding scale insulin Hold glipizide Hypothyroidism-postsurgical with history of thyroid cancer Levothyroxinem, check tsh 17, increase levothyroxine CHARITO/obesity hypoventilation syndrome/chronic hypoxemic hypercapnic respiratory failure Continue home O2, goal 90-92% CPAP bedtime CAD/CVA/CHF No anginal chest pain, clinically no CHF exacerbation Continue p.o. meds Mood disorder Continue home medications GERD PPI Chronic normocytic anemia Baseline Super morbid obesity BMI 82.9, recent 100 lb weight loss. Encouraged ongoing weight loss efforts DVT prophylaxis-Lovenox Full code need for hospitalization: iv Abx for cellulitis that is severe Quality Stroke Does the patient have a stroke diagnosis?: No VTE Prior VTE?: No VTE Risk Level:: Medical - moderate - high VTE Device Contraindication: Treatment Not Indicated VTE Drug Contraindication: N/A - Med Ordered
[2024-07-11 08:07] LABS: Creatinine Clr Calc Pharmacy 164.6; Estimated Glomerular Filt Rate > 60
[2024-07-11] MEDS: Omeprazole 20 MG CAPSULE.DR PO ×2 (09:55→21:53)
[2024-07-11] MEDS: predniSONE 20 MG TABLET PO (09:55)
[2024-07-11] MEDS: Cyclobenzaprine HCl 10 MG TABLET 20 MG PO ×3 (09:55→21:54)
[2024-07-11] MEDS: Loratadine 10 MG TABLET PO (09:55)
[2024-07-11] MEDS: Hydrocortisone 1 % Cream 28.35 GM TUBE 1 APPL TOPICAL (09:58)
[2024-07-11] MEDS: Ammonium Lactate 12 % Lotion 226 GM BOTTLE 1 APPL TOPICAL ×2 (09:59→21:55)
[2024-07-11] MEDS: Nystatin/Triamcinolone Cream 15 GM TUBE 1 APPL TOPICAL ×2 (09:59→21:57)
[2024-07-11] MEDS: Nystatin Powder 15 GM BOTTLE 1 APPL TOPICAL ×2 (10:00→14:54)
[2024-07-11] MEDS: Doxycycline Monohydrate 100 MG CAPSULE PO ×2 (10:59→21:50)
[2024-07-11 11:29] LABS: Glucose, Whole Blood 133 mg/dL (60-115)
[2024-07-11] MEDS: diphenhydrAMINE HCL 25 MG CAPSULE PO (15:25)
[2024-07-11 15:29] VITALS: BP 131/65; PULSE 105; RESP 18; TEMP 36.6; O2SAT 96
[2024-07-11 16:27] LABS: Vancomycin Random 10.9 mcg/mL (15-20)
[2024-07-11 16:51] LABS: Glucose, Whole Blood 156 mg/dL (60-115)
[2024-07-11] MEDS: Insulin Lispro 100 UNIT/ML 3 ML VIAL SUBCUT (16:51)
[2024-07-11] MEDS: oxyCODONE HCl Immed Release 5 MG TABLET PO (17:31)
--- NOTE | 2024-07-11 18:14 | PC.NURSE ---
Pt switch from IV abx to PO doxy per I/D. Pt states that per her primary care Korin that PO Vibramycin does not work for her cellulitis. Notified MD Woodard.
[2024-07-11] MEDS: Enoxaparin Sodium 40 MG/0.4 ML SYRINGE SUBCUT (18:17)
[2024-07-11 19:49] VITALS: BP 119/56; PULSE 103; RESP 18; TEMP 36.6; O2SAT 93
[2024-07-11 20:13] LABS: Glucose, Whole Blood 121 mg/dL (60-115)
[2024-07-11] MEDS: Montelukast Sodium 10 MG TABLET PO (21:53)
[2024-07-11] MEDS: Acetaminophen 325 MG TABLET 650 MG PO (21:54)
[2024-07-11] MEDS: diphenhydrAMINE HCL 25 MG CAPSULE 50 MG PO (21:54)
[2024-07-11] MEDS: 0.9 % Sodium Chloride Flush 3 ML SYRINGE IVFLUSH (21:57)
[2024-07-11] MEDS: LORazepam 1 MG TABLET 2 MG PO (22:19)
[2024-07-11] MEDS: traZODone HCL 50 MG TABLET 150 MG PO (22:19)
[2024-07-12 03:03] VITALS: BP 113/56; PULSE 99; RESP 20; TEMP 36.4; O2SAT 96
[2024-07-12] MEDS: diphenhydrAMINE HCL 25 MG CAPSULE PO (03:58)
[2024-07-12] MEDS: Acetaminophen 325 MG TABLET 650 MG PO ×3 (03:58→20:51)
[2024-07-12] MEDS: HYDROmorphone HCl 0.5 MG/0.5 ML SYRINGE 1 MG IVPUSH ×3 (05:10→22:33)
[2024-07-12] MEDS: Levothyroxine Sodium 25 MCG TABLET PO (05:10)
[2024-07-12] MEDS: Levothyroxine Sodium 200 MCG TABLET PO (05:10)
[2024-07-12 07:37] VITALS: BP 127/62; PULSE 100; RESP 18; TEMP 36.1; O2SAT 95
[2024-07-12 07:43] LABS: Glucose, Whole Blood 121 mg/dL (60-115)
--- NOTE | 2024-07-12 08:05 | HO.PM.IMPN ---
Subjective Subjective Date of Service: 07/12/24 Interval History: f/u on cellulitis of lower extremity with underlying lymphadema and morbid obesity legs still weeping Physical Exam Vital Signs: Vital Signs: Last Vital Signs Temp 97.0 F 07/12/24 07:37 Pulse 100 07/12/24 07:37 Resp 18 07/12/24 07:37 BP 127/62 07/12/24 07:37 Pulse Ox 95 07/12/24 07:37 O2 Del Method Nasal Cannula 07/12/24 07:37 O2 Flow Rate 4 07/12/24 07:37 Oxygen Flow Rate 5 07/07/24 14:56 BMI result Body Mass Index 82.3 Const: Other: Constitutional : interactive, not in distress, morbidly obese Cardiovascular : no JVP, no lower extremity edema Respiratory : bilateral chest movement, not in resp distress Gastrointestinal: soft, lax, Non tender Skin : Warm, Dry, less erythema in lower extremities, significant lymphedema but less drainage but still oozing clear\yellowish drainage, covered with dressing, ulceration of RLE --see pictures in wound care note Neurological : Alert & oriented , No focal deficit Objective Data Active Medications Acetaminophen (Acetaminophen 325 Mg Tablet) 650 mg PO Q6H PRN PRN Reason: Pain, Mild 1-3,fever,headache Last Admin: 07/12/24 03:58 Dose: 650 mg Documented By: AMXIMILIANO Acetaminophen (Acetaminophen 325 Mg Tablet) 650 mg PO BEDTIME [facility] Last Admin: 07/11/24 21:54 Dose: 650 mg Documented By: MAXIMILIANO Albuterol Sulfate (Albuterol Sulfate 90 Mcg 8 Gm Inhaler) 2 puff INHALE Q6H PRN PRN Reason: Shortness Of Breath Or Wheezing Bumetanide (Bumetanide 1 Mg Tablet) 1 mg PO DAILY PRN; Protocol PRN Reason: edema Calcium Carbonate (Calcium Carbonate 750 Mg Tab.Chew) 750 mg PO Q4H PRN PRN Reason: Heartburn Cyanocobalamin (Cyanocobalamin (Vitamin B-12) 1,000 Mcg/Ml Vial) 1,000 mcg IM Q28D [facility] Last Admin: 07/08/24 12:04 Dose: 1,000 mcg Documented By: RADHA Cyclobenzaprine HCl (Cyclobenzaprine Hcl 10 Mg Tablet) 20 mg PO TID [facility] Last Admin: 07/11/24 21:54 Dose: 20 mg Documented By: MAXIMILIANO Diphenhydramine HCl (Diphenhydramine Hcl 25 Mg Capsule) 50 mg PO BEDTIME [facility] Last Admin: 07/11/24 21:54 Dose: 50 mg Documented By: MAXIMILIANO Diphenhydramine HCl (Diphenhydramine Hcl 25 Mg Capsule) 25 mg PO Q6H PRN PRN Reason: Itching Last Admin: 07/12/24 03:58 Dose: 25 mg Documented By: MAXIMILIANO Doxycycline Monohydrate (Doxycycline Monohydrate 100 Mg Capsule) 100 mg PO Q12H [facility] Last Admin: 07/11/24 21:50 Dose: 100 mg Documented By: MAXIMILIANO Enoxaparin Sodium (Enoxaparin Sodium 40 Mg/0.4 Ml Syringe) 40 mg SUBCUT Q24H [facility] Last Admin: 07/11/24 18:17 Dose: 40 mg Documented By: RIGO Fluticasone/Vilanterol (Fluticasone/Vilanterol 100/25 Blst.W.Dev) 1 puff INHALE RDAILY [facility] Last Admin: 07/12/24 08:05 Dose: Not Given Documented By: KELLY Non-Admin Reason: Patient Refused Hydrocortisone (Hydrocortisone 1 % Cream 28.35 Gm Tube) 1 appl TOPICAL BID [facility]; Protocol Last Admin: 07/11/24 21:59 Dose: Not Given Documented By: MAXIMILIANO Non-Admin Reason: Patient Refused Hydromorphone HCl (Hydromorphone Hcl 0.5 Mg/0.5 Ml Syringe) 1 mg IVPUSH Q4H PRN; Protocol PRN Reason: Pain, Severe (Pain Scale 7-10) Last Admin: 07/12/24 05:10 Dose: 1 mg Documented By: MAXIMILIANO Comments: Insulin Human Lispro (Insulin Lispro 100 Unit/Ml 3 Ml Vial) 0 unit SUBCUT QIDACHS [facility]; Protocol Last Admin: 07/12/24 07:40 Dose: Not Given Documented By: RIGO Non-Admin Reason: No Insulin Coverage Lactic Acid (Ammonium Lactate 12 % Lotion 226 Gm Bottle) 1 appl TOPICAL BID [facility]; Protocol Last Admin: 07/11/24 21:55 Dose: 1 appl Documented By: MAXIMILIANO Levothyroxine Sodium (Levothyroxine Sodium 200 Mcg Tablet) 200 mcg PO DAILY@0600 [facility] Last Admin: 07/12/24 05:10 Dose: 200 mcg Documented By: MAXIMILIANO Levothyroxine Sodium (Levothyroxine Sodium 25 Mcg Tablet) 25 mcg PO DAILY@0600 [facility] Last Admin: 07/12/24 05:10 Dose: 25 mcg Documented By: MAXIMILIANO Loperamide HCl (Loperamide Hcl 2 Mg Capsule) 2 mg PO Q4H PRN PRN Reason: Diarrhea Last Admin: 07/08/24 16:35 Dose: 2 mg Documented By: RADHA Loratadine (Loratadine 10 Mg Tablet) 10 mg PO DAILY [facility] Last Admin: 07/11/24 09:55 Dose: 10 mg Documented By: RIGO Lorazepam (Lorazepam 1 Mg Tablet) 2 mg PO BEDTIME PRN PRN Reason: anxiety Last Admin: 07/11/24 22:19 Dose: 2 mg Documented By: MAXIMILIANO Magnesium Hydroxide (Milk Of Magnesia 30 Ml Oral.Susp) 30 ml PO DAILY PRN PRN Reason: Constipation Melatonin (Melatonin 3 Mg Tablet) 6 mg PO BEDTIME PRN PRN Reason: Insomnia Montelukast Sodium (Montelukast Sodium 10 Mg Tablet) 10 mg PO BEDTIME [facility] Last Admin: 07/11/24 21:53 Dose: 10 mg Documented By: MAXIMILIANO Nystatin (Nystatin Powder 15 Gm Bottle) 1 appl TOPICAL TID [facility]; Protocol Last Admin: 07/11/24 21:58 Dose: Not Given Documented By: MAXIMILIANO Non-Admin Reason: Patient Refused Nystatin/Triamcinolone Acetonide (Nystatin/Triamcinolone Cream 15 Gm Tube) 1 appl TOPICAL BID [facility] Last Admin: 07/11/24 21:57 Dose: 1 appl Documented By: MAXIMILIANO Omeprazole (Omeprazole 20 Mg Capsule.) 20 mg PO BID [facility] Last Admin: 07/11/24 21:53 Dose: 20 mg Documented By: MAXIMILIANO Ondansetron HCl (Ondansetron Hcl 4 Mg/2 Ml Vial) 4 mg IVPUSH Q8H PRN PRN Reason: Nausea and Vomiting Last Admin: 07/08/24 17:07 Dose: 4 mg Documented By: RADHA Oxycodone HCl (Oxycodone Hcl Immed Release 5 Mg Tablet) 5 mg PO Q6H PRN PRN Reason: Pain, Moderate(Pain Scale 4-6) Last Admin: 07/11/24 17:31 Dose: 5 mg Documented By: RIGO Sodium Chloride (0.9 % Sodium Chloride Flush 3 Ml Syringe) 3 ml IVFLUSH QSHIFT [facility] Last Admin: 07/11/24 21:57 Dose: 3 ml Documented By: MAXIMILIANO Trazodone HCl (Trazodone Hcl 50 Mg Tablet) 150 mg PO BEDTIME PRN PRN Reason: sleep Last Admin: 07/11/24 22:19 Dose: 150 mg Documented By: MAXIMILIANO Labs 07/10/24 05:05 07/11/24 07:48 Labs: Laboratory Results - last 24 hr 07/11/24 07/11/24 07/11/24 07:48 11:17 15:53 Estim Creat Clear Calc 164.6 Estimated GFR > 60 POC Glucose 133 H Random Vancomycin 10.9 L 07/11/24 07/11/24 07/12/24 16:44 19:51 07:35 Estim Creat Clear Calc Estimated GFR POC Glucose 156 H 121 H 121 H Random Vancomycin Assessment and Plan (1) Cellulitis of lower leg: Status: Acute (2) Chronic hypoxic respiratory failure: Status: Acute (3) Lymphedema: Status: Acute Plan 54-year-old female with history of CVA, mi, CHARITO on CPAP, chronic hypoxemic/hypercapnic respiratory failure, CHF, history of thyroid cancer s/p total thyroidectomy, GERD, pots, type 2 diabetes, lymphedema, who is morbidly obese with BMI greater than 82 admitted for further management of acute cellulitis of the right lower extremity Acute severe cellulitis RLE with background lymphedema/venous ulcers, no sepsis blood cultures negative Treated with IV vancomycin and cefepime (initiated 07/07--), change to PO doxy o07/11 per ID recommendation for 10 days Pain management p.r.n. Wound care following see note and recommendation Intertriginous candidiasis Nystatin t.i.d. Acute mild transaminitisLikely in setting of infection, fatty liver? follow LFT , trending down [id number] type 2 diabetes Controlled with most recent A1c 6.1% POC glucose, diabetic diet Sliding scale insulin Hold glipizide Hypothyroidism-postsurgical with history of thyroid cancer Levothyroxinem, check tsh 17, increase levothyroxine CHARITO/obesity hypoventilation syndrome/chronic hypoxemic hypercapnic respiratory failure Continue home O2, goal 90-92% CPAP bedtime CAD/CVA/CHF No anginal chest pain, clinically no CHF exacerbation Continue p.o. meds Mood disorder Continue home medications GERD PPI Chronic normocytic anemia Baseline Super morbid obesity BMI 82.9, recent 100 lb weight loss. Encouraged ongoing weight loss efforts DVT prophylaxis-Lovenox Full code need for hospitalization: iv Abx for cellulitis that is severe home with vns Quality Stroke Does the patient have a stroke diagnosis?: No VTE Prior VTE?: No VTE Risk Level:: Medical - moderate - high VTE Device Contraindication: Treatment Not Indicated VTE Drug Contraindication: N/A - Med Ordered
[2024-07-12] MEDS: Cyclobenzaprine HCl 10 MG TABLET 20 MG PO ×3 (08:19→20:52)
[2024-07-12] MEDS: Ammonium Lactate 12 % Lotion 226 GM BOTTLE 1 APPL TOPICAL ×2 (08:19→20:53)
[2024-07-12] MEDS: Omeprazole 20 MG CAPSULE.DR PO ×2 (08:19→20:52)
[2024-07-12] MEDS: oxyCODONE HCl Immed Release 5 MG TABLET PO (08:19)
[2024-07-12] MEDS: Loratadine 10 MG TABLET PO (08:19)
[2024-07-12] MEDS: 0.9 % Sodium Chloride Flush 3 ML SYRINGE IVFLUSH ×3 (08:20→22:40)
[2024-07-12] MEDS: Nystatin/Triamcinolone Cream 15 GM TUBE 1 APPL TOPICAL ×2 (08:20→20:54)
[2024-07-12] MEDS: Hydrocortisone 1 % Cream 28.35 GM TUBE 1 APPL TOPICAL ×2 (08:20→20:55)
[2024-07-12] MEDS: Nystatin Powder 15 GM BOTTLE 1 APPL TOPICAL ×3 (08:23→20:54)
[2024-07-12 11:30] LABS: Glucose, Whole Blood 124 mg/dL (60-115)
[2024-07-12] MEDS: Doxycycline Monohydrate 100 MG CAPSULE PO ×2 (11:31→23:26)
[2024-07-12 15:28] VITALS: BP 118/71; PULSE 95; RESP 18; TEMP 36.1; O2SAT 95
[2024-07-12 16:29] LABS: Glucose, Whole Blood 109 mg/dL (60-115)
[2024-07-12] MEDS: Enoxaparin Sodium 40 MG/0.4 ML SYRINGE SUBCUT (17:59)
[2024-07-12] MEDS: Albuterol/Iprat 2.5/0.5MG 3 ML AMPUL.NEB INHALE (18:35)
[2024-07-12 18:37] VITALS: PULSE 85; O2SAT 17
[2024-07-12 19:56] VITALS: BP 120/59; PULSE 103; RESP 18; TEMP 36.4; O2SAT 97
[2024-07-12 20:24] LABS: Glucose, Whole Blood 120 mg/dL (60-115)
[2024-07-12] MEDS: diphenhydrAMINE HCL 25 MG CAPSULE 50 MG PO (20:51)
[2024-07-12] MEDS: Montelukast Sodium 10 MG TABLET PO (20:52)
[2024-07-12] MEDS: LORazepam 1 MG TABLET 2 MG PO (21:01)
[2024-07-12] MEDS: traZODone HCL 50 MG TABLET 150 MG PO (22:33)
[2024-07-13 00:05] VITALS: PULSE 109; O2SAT 96
[2024-07-13 03:19] VITALS: BP 109/53; PULSE 102; RESP 18; TEMP 36.4; O2SAT 96
[2024-07-13] MEDS: HYDROmorphone HCl 0.5 MG/0.5 ML SYRINGE 1 MG IVPUSH (03:20)
[2024-07-13] MEDS: Acetaminophen 325 MG TABLET 650 MG PO ×2 (05:03→14:31)
[2024-07-13] MEDS: Levothyroxine Sodium 25 MCG TABLET PO (05:04)
[2024-07-13] MEDS: Levothyroxine Sodium 200 MCG TABLET PO (05:04)
[2024-07-13 07:30] VITALS: BP 121/56; PULSE 101; RESP 20; TEMP 36.6; O2SAT 96
[2024-07-13] MEDS: Cyclobenzaprine HCl 10 MG TABLET 20 MG PO ×2 (07:44→14:28)
[2024-07-13] MEDS: Loratadine 10 MG TABLET PO (07:44)
[2024-07-13] MEDS: oxyCODONE HCl Immed Release 5 MG TABLET PO ×2 (07:44→12:01)
[2024-07-13] MEDS: Ammonium Lactate 12 % Lotion 226 GM BOTTLE 1 APPL TOPICAL (07:45)
[2024-07-13] MEDS: Hydrocortisone 1 % Cream 28.35 GM TUBE 1 APPL TOPICAL (07:45)
[2024-07-13] MEDS: Omeprazole 20 MG CAPSULE.DR PO (07:46)
[2024-07-13 07:58] LABS: Glucose, Whole Blood 126 mg/dL (60-115)
[2024-07-13] MEDS: diphenhydrAMINE HCL 25 MG CAPSULE PO (10:29)
[2024-07-13] MEDS: Doxycycline Monohydrate 100 MG CAPSULE PO (10:29)
[2024-07-13] MEDS: Albuterol/Iprat 2.5/0.5MG 3 ML AMPUL.NEB INHALE (11:08)
[2024-07-13 11:10] VITALS: PULSE 69; RESP 20; O2SAT 99
[2024-07-13 11:15] LABS: Glucose, Whole Blood 131 mg/dL (60-115)
--- NOTE | 2024-07-13 11:34 | P.DS_ITS ---
DS: Providers Provider Date of Service: 07/13/24 Date of admission: 07/07/24 18:23 Date of discharge: 07/13/24 Primary care physician: Janessa Tian MD Consults: 07/07/24 18:23 Consult to Wound Care Routine Reason for consultation: venous ulcers, lymphedema 07/10/24 07:33 Consult to Infectious Diseases Routine Consulting Provider: [facility] Reason for consultation: severe cellulitis DS: Diagnosis Discharge Diagnosis (1) Cellulitis of lower leg: Status: Acute (2) Chronic hypoxic respiratory failure: Status: Acute (3) Lymphedema: Status: Acute DS: Summary Hospital Course Hospital Course: 54-year-old female with history of CVA, mi, CHARITO on CPAP, chronic hypox emic/hypercapnic respiratory failure, CHF, history of thyroid cancer s/p total thyroidectomy, GERD, pots, type 2 diabetes, lymphedema, who is morbidly obese with BMI greater than 82 admitted for further management of acute cellulitis of the right lower extremity Acute severe cellulitis RLE with background lymphedema/venous ulcers, no sepsisblood cultures negativeTreated with IV vancomycin and cefepime ( 07/07--), changed to PO doxy o07/11 per ID recommendation for 10 daysWound care following see note and recommendation: 1. Turn and Reposition every 2 hours and as needed for patient comfort.? Use pillows or wedges to support off loading positions. 2. Off Load all bony prominences with use of pillows and heel boots if needed.? Apply Preventative foams where needed. ? 3. Monitor for incontinence and moisture control, use barrier creams when needed for prevention and treatment. 4. Provide adequate and supplemental nutrition.? 5. Order Bariatric Bed. 6. When applicable maintain blood glucose levels per Providers order. Posterior Thighs, Buttock and Intergluteal - Cleanse with Ph Balanced wipes or Allie [place]. Pat dry. Apply Antifungal powder or cream per provider orders f ollowed by triad barrier cream. apply twice daily. Bilateral Lower Legs - Elevate lower legs - Cleanse with NS, pat dry. Apply vaseline to lower legs, cover open wound beds with impregnated gauze or xeroform, followed by dry gauze, ABD pads and Elastic netting to secure in place. Change Daily. Intertriginous candidiasis Nystatin t.i.d. Acute mild transaminitisLikely in setting of infection, fatty liver? follow LFT , trending down Nkv-mtkckac-ljkuyocfm type 2 diabetes Controlled with most recent A1c 6.1% POC glucose, diabetic diet Sliding scale insulin Hold glipizide Hypothyroidism-postsurgical with history of thyroid cancer Levothyroxinem, check tsh 17, increase levothyroxine CHARITO/obesity hypoventilation syndrome/chronic hypoxemic hypercapnic respiratory failure Continue home O2, goal 90-92% CPAP bedtime CAD/CVA/CHF No anginal chest pain, clinically no CHF exacerbation Continue p.o. meds Mood disorder Continue home medications GERD PPI Time Attestation Discharge Coordination Time (in mins): 45 Quality: Safe Use of Opioids Does Pt have an Active Cancer Diagnosis on the Problem List?: No Quality: Stroke Does the patient have a stroke diagnosis?: No Physical Exam Vital Signs: Vital Signs: Last Vital Signs Temp 97.8 F 07/13/24 07:30 Pulse 69 07/13/24 11:10 Resp 20 07/13/24 11:10 BP 121/56 L 07/13/24 07:30 Pulse Ox 96 07/13/24 07:30 O2 Del Method Nasal Cannula 07/13/24 07:30 O2 Flow Rate 4 07/13/24 07:30 Oxygen Flow Rate 5 07/07/24 14:56 BMI result Body Mass Index 82.3 DS: Data Data Completed and Pending Labs on day of discharge: Laboratory Results - last 24 hr 07/12/24 07/12/24 07/13/24 16:17 20:08 07:33 POC Glucose 109 120 H 126 H 07/13/24 11:12 POC Glucose 131 H Discharge Plan Discharge Anticipated Discharge Date/Time: 07/13/24 11:34 Patient Disposition: Home Health Service Discharge Diagnosis: Cellulitis of the leg with chronic lymphedema Referrals: Janessa Tian MD [Primary Care Provider] - 1 Week Discharge Medications: New doxycycline monohydrate 100 mg Capsule 100 mg PO Q12H Qty: 16 0RF Continued (DME) FreeStyle Lite Strips Strip See Rx Instructions .ROUTE .MEDSUPPLY Qty: 100 11RF Rx Instructions: As directed-three times daily cyanocobalamin (vitamin B-12) 1,000 mcg/mL solution 1,000 mcg IM Q4W 90 Days Qty: 4 1RF glipizide 2.5 mg tablet extended release 24hr 2.5 mg PO DAILY 90 Days Qty: 90 3RF montelukast [Singulair] 10 mg tablet 10 mg PO BEDTIME 90 Days Qty: 90 4RF ondansetron HCl 4 mg tablet 4 mg PO Q8H PRN (Reason: nausea) Qty: 60 1RF (DME) Wheelchair ramp See Rx Instructions .Route .MEDSUPPLY Qty: 1 0RF Rx Instructions: As directed (DME) FreeStyle Anahy 14 Day [place] Misc See Rx Instructions .ROUTE .MEDSUPPLY Qty: 1 0RF Rx Instructions: As directed trazodone 150 mg tablet 150 mg PO BEDTIME PRN (Reason: sleep) Qty: 30 11RF (DME) FreeStyle Anahy 14 Day Sensor Kit See Rx Instructions .ROUTE .MEDSUPPLY Qty: 6 1RF Rx Instructions: As directed (DME) lancets [FreeStyle Lancets] 28 gauge misc See Rx Instructions .ROUTE .COMPLEX Qty: 200 3RF Dose Instruction: DIRECTED. THREE TIMES DAILY NEEDED. Rx Instructions: THREE TIMES DAILY NEEDED. levothyroxine 200 mcg tablet 200 mcg PO DAILY Qty: 90 3RF oxycodone 5 mg tablet 5 mg PO Q6H PRN (Reason: pain) 28 Days Qty: 112 0RF diphenhydramine-acetaminophen [Tylenol PM Extra Strength] 25-500 mg Tablet 2 tab PO BEDTIME cyclobenzaprine 10 mg tablet 20 mg PO TID bumetanide 1 mg tablet 1 mg PO DAILY PRN (Reason: Fluid Retention) lorazepam 1 mg tablet 2 mg PO BEDTIME PRN (Reason: anxiety) fluticasone propion-salmeterol [Advair Diskus] 250-50 mcg/dose blister with device 1 inh inhalation BID albuterol sulfate 90 mcg/actuation HFA aerosol inhaler 2 puff inhalation Q6H PRN (Reason: Shortness Of Breath Or Wheezing) omeprazole 20 mg capsule,delayed release(DR/EC) 20 mg PO BID clotrimazole-betamethasone 1-0.05 % cream 1 appl topical BID Qty: 45 3RF (DME) 4X4 gauze See Rx Instructions .Route .MEDSUPPLY Qty: 100 3RF Rx Instructions: daily wound care (DME) 6 X 6 adhesive dressing. See Rx Instructions .Route .MEDSUPPLY Qty: 100 3RF Rx Instructions: as directed daily with wound care (DME) 8 X 10 A&D pads See Rx Instructions .Route .MEDSUPPLY Qty: 100 3RF Rx Instructions: As directed (DME) Sponge gauze 4x4 See Rx Instructions .Route .MEDSUPPLY Qty: 100 3RF Rx Instructions: As directed levothyroxine 25 mcg tablet 25 mcg PO DAILY Qty: 90 3RF Rx Instructions: Take one tab oral once daily with 200mcg tab for total 225mcg daily (DME) Oxygen Home Use Kit See Rx Instructions .Route Qty: 1 0RF Rx Instructions: Oxygen via NC 6L standing 4L sitting (DME) walker Misc See Rx Instructions .Route Qty: 1 0RF Rx Instructions: As directed No wheels Diet: Advance to usual diet Activity on Discharge: As tolerated Stand Alone Forms: Patient Portal Discharge page Print Language: Setswana Care Plan Goals: recovery from lyphadema with associated cellulitis Health Concerns: chronic lymphadema of both lower extremities obesity Plan of Treatment: take doxycyline as recommended Nystatin powder for underfolds outpatient wound clininic follow up outpatient OT clinic for leg wrapping Assessment: see above
[2024-07-13] MEDS: Nystatin Powder 15 GM BOTTLE 1 APPL TOPICAL (14:33)
--- NOTE | 2024-07-13 14:38 | HO.WOUND ---
Wound Consult: Follow up 54yr old? female admitted to [facility] on 07/07/24 18:23 - See progress notes and H&P for detailed history.? Wound consult follow up for Bilateral Lower Legs.? Patient agreeable to assessment and photo documentation.?Patient reports she is set for d/c to home today with [facility] services set up and PT to increase strength. She reports she should follow up with outpt wound clinic and OT for Lymphedema treatment. Todays assessment reveals improved lower leg drainage and wound beds. The left posterior leg reveals macerated edges - recommend switching to Durafiber AG for moisture management. Supplies provided to patient. Topcial recommendations below. Topical Wound Care Recommendations: 1. Turn and Reposition every 2 hours and as needed for patient comfort.? Use pillows to support off loading positions. 2. Off Load all bony prominences with use of pillows. ? 3. Monitor for incontinence and moisture control, use barrier creams when needed for prevention and treatment. Triad provided to patient. 4. Provide adequate and supplemental nutrition.? 5. Recommend outpt follow up with social studies teacher for Bariatric Bed. Advised also to contact Lymphedema pump rep for new cord that she reports is missing and not allowing her to use the pumps. 6. When applicable maintain blood glucose levels per Providers order. Posterior Thighs, Buttock and Intergluteal - Cleanse with Ph Balanced wipes or Allie [place]. Pat dry. Apply Antifungal powder or cream per provider orders followed by triad barrier cream. apply twice daily. Bilateral Lower Legs - Elevate lower legs - ensure heels are lifted off of bed surface to prevent injury. Cleanse with NS, pat dry. Apply vaseline to lower legs, cover open wound beds with impregnated gauze or xeroform, followed by dry gauze, ABD pads and Elastic netting to secure in place. Change every 1-2 days. For Left Posterior wound apply Durafiber to wound bed followed by dry gauze, ABD pad and Eleastic netting. Change every 1-2 days. Patient should follow up outpt with OT for Lymphedema and compression therapy.? [facility] [address] [place] [address] . Recommend follow up out patient Wound Clinic at [address] [place] [address] and to call for an appointment at time of discharge. [phone].? Details from previous assessment: Patient reports she has difficulty at home with care. She reports she has not showered in 3 years due to not fitting in her bathroom. She reports she has treated at the wound clinic in the past for lower leg lymphedema and that they healed in the past. She reports she was prescribed Lymphedema pumps but only used them once and then reports she lost the plug for the machine. She was advised to seek care from a fire protection engineer, out pt wound clinic and follow up Lymphedema pump specialist at the time of d/c. Bilateral Lower Legs Etiology: Lymphedema ??Present on Admission Wound Bed: various stages of wound bed - red moist clean overall Drainage / Odor: yellow drainage noted on dressing - gauze was stuck to wound beds Edges: ? irregular Joanna wound: ?Lymphedema Pain: painful to touch Goals of Treatment: ? Elevate and moist wound healing and drainage absorption Bilateral Posterior thighs and Intergluteal and buttocks assessed for MASD and Fungal dermatitis - area remains with scattered areas of tissue loss, patient reports itching and moist desquamation noted. Antifungal powder applied after cleansing. Recommendations: 1. Turn and Reposition every 2 hours and as needed for patient comfort.? Use pillows or wedges to support off loading positions. 2. Off Load all bony prominences with use of pillows and heel boots if needed.? Apply Preventative foams where needed. ? 3. Monitor for incontinence and moisture control, use barrier creams when needed for prevention and treatment. 4. Provide adequate and supplemental nutrition.? 5. Order Bariatric Bed. 6. When applicable maintain blood glucose levels per Providers order. Posterior Thighs, Buttock and Intergluteal - Cleanse with Ph Balanced wipes or Allie [place]. Pat dry. Apply Antifungal powder or cream per provider orders followed by triad barrier cream. apply twice daily. Bilateral Lower Legs - Elevate lower legs - Cleanse with NS, pat dry. Apply vaseline to lower legs, cover open wound beds with impregnated gauze or xeroform, followed by dry gauze, ABD pads and Elastic netting to secure in place. Change Daily. Re-consult wound care Nurse for wound deterioration or wound changes.
--- NOTE | 2024-07-13 15:14 | MHC.CM.PN ---
pt being dcd tyshailay with hvns pt has deieded to comp,ete pt at home and follow upwitjh lymphodema /ot outpt
[2024-07-13 16:00] VITALS: BP 108/58; PULSE 93; RESP 18; TEMP 36.4; O2SAT 97
[2024-07-13 16:25] LABS: Glucose, Whole Blood 123 mg/dL (60-115)
[2024-07-13] MEDS: LORazepam 1 MG TABLET PO (16:33)
[2024-07-13 19:21] VITALS: BP 152/70; PULSE 111; RESP 18; TEMP 36.6; O2SAT 98
== END 2024-07-13 19:21 | disposition home health service (06) | DRG 383 ==
LOC: HO.ED 18:03 → HO.EDOVER 18:42 → HO.S3 07-08 19:07
PROVIDERS: Physician Assistant; Registered Nurse Emergency; Student in an Organized Health Care Education/Training Program; Admitting Provider Physician Assistant; Emergency Provider Emergency Medicine Emergency Medical Services; PCP Internal Medicine; Visit Provider Internal Medicine
DX: L03.115 Cellulitis of right lower limb (principal); J96.12 Chronic respiratory failure with hypercapnia; E66.2 Morbid (severe) obesity with alveolar hypoventilation; Z68.45 Body mass index [BMI] 70 or greater, adult; I50.9 Heart failure, unspecified; L97.811 Non-pressure chronic ulcer of other part of right lower leg limited to breakdown of skin; E11.9 Type 2 diabetes mellitus without complications; B37.2 Candidiasis of skin and nail; D64.9 Anemia, unspecified; E89.0 Postprocedural hypothyroidism; K21.9 Gastro-esophageal reflux disease without esophagitis; K76.0 Fatty (change of) liver, not elsewhere classified; I89.0 Lymphedema, not elsewhere classified; I25.10 Atherosclerotic heart disease of native coronary artery without angina pectoris; Z20.822 Contact with and (suspected) exposure to COVID-19; L97.821 Non-pressure chronic ulcer of other part of left lower leg limited to breakdown of skin; J96.11 Chronic respiratory failure with hypoxia; Z71.3 Dietary counseling and surveillance; Z79.51 Long term (current) use of inhaled steroids; Z79.890 Hormone replacement therapy; Z87.891 Personal history of nicotine dependence; Z85.850 Personal history of malignant neoplasm of thyroid; Z79.899 Other long term (current) drug therapy
CPT/HCPCS: 0241U; 36415; 71046; 80048; 80051; 80053; 80076; 80202; 81001; 82010; 82565; 82947; 83605; 83880; 84439; 84443; 85025; 85652; 86140; 87040; 93005; 94640; 94660; 97162; 97166; 99285; J0692; J1171; J1650; J2405; J3360; J3370; J3371; J3420

== ENCOUNTER → 2024-07-07 14:59 | Outpatient (BNV) | payer OTHER, SELFPAY | PROVIDERS: Emergency Provider Emergency Medicine Emergency Medical Services; PCP Internal Medicine; Visit Provider Radiology Diagnostic Radiology | DX: R07.9 Chest pain, unspecified (principal) | CPT/HCPCS: 71046 ==

== ENCOUNTER → 2024-07-07 14:59 | Outpatient (BNV) | payer OTHER, SELFPAY | PROVIDERS: Admitting Provider Physician Assistant; Emergency Provider Emergency Medicine Emergency Medical Services; PCP Internal Medicine; Visit Provider Internal Medicine Cardiovascular Disease | DX: I49.1 Atrial premature depolarization (principal); R00.0 Tachycardia, unspecified | CPT/HCPCS: 93010 ==

== ENCOUNTER → 2024-07-07 18:23 | Outpatient (BNV) | payer OTHER, SELFPAY | PROVIDERS: Admitting Provider Physician Assistant; Emergency Provider Emergency Medicine Emergency Medical Services; PCP Internal Medicine; Visit Provider Student in an Organized Health Care Education/Training Program | DX: L03.119 Cellulitis of unspecified part of limb (principal); I89.0 Lymphedema, not elsewhere classified; S81.809A Unspecified open wound, unspecified lower leg, initial encounter | CPT/HCPCS: 99223; 99232; 99233 ==

== ENCOUNTER → 2024-07-07 18:23 | Outpatient (BNV) | payer OTHER, SELFPAY | PROVIDERS: Admitting Provider Physician Assistant; Emergency Provider Emergency Medicine Emergency Medical Services; PCP Internal Medicine; Visit Provider Internal Medicine | DX: I89.0 Lymphedema, not elsewhere classified (principal) | CPT/HCPCS: 99221 ==

== ENCOUNTER 2024-07-28 16:13 | Outpatient (AMB) | payer OTHER, SELFPAY ==
--- NOTE | 2024-07-28 16:16 | A.OFFPC_ITS ---
Intake Visit Reasons: Care update Intake Note: Hospital follow up. Needs refill on prednisone and albuterol. Viscose Department Worker Required: No Allergies tirzepatide [From Mounjaro] Allergy (Severe, Verified 07/28/24 16:17) Unknown soy Allergy (Mild, Verified 07/28/24 16:17) hives amoxicillin Allergy (Unknown, Verified 07/28/24 16:17) anaphylaxis azithromycin [Zithromax Z-Chris] Allergy (Unknown, Verified 07/28/24 16:17) anaphylaxis Darvocet A500 Allergy (Unknown, Verified 07/28/24 16:17) hives penicillin V Allergy (Unknown, Verified 07/28/24 16:17) anaphylaxis Erythromycin Allergy (Unknown, Uncoded 07/28/24 16:17) anaphylaxis Rabbits Allergy (Unknown, Uncoded 07/28/24 16:17) anaphylaxis Trinidadian cheese Allergy (Unknown, Uncoded 07/28/24 16:17) anaphylaxis Tobacco use date assessed: 07/28/24 HPI HPI Comments History of Present Illness Details This is a 54 y/o female with a past medical history of type 2 DM, CVA, [place], CHF, thyroid cancer, hypothyroid, OA, obesity, CHARITO, hypoxic respiratory failure on chronic 02, lymphedema, recurrent LE cellulitis, depression, anxiety presenting for follow up (video telehealth) She was hospitalized since our last visit with ccute severe cellulitis RLE with background lymphedema/venous ulcers, no sepsis blood cultures negative. She was treated with IV vancomycin and cefepime ( 07/07--12), changed to PO doxy o07/11 per ID recommendation for 10 days. Wound care followed and recommendations as followed 1. Turn and Reposition every 2 hours and as needed for patient comfort.? Use pillows or wedges to support off loading positions. 2. Off Load all bony prominences with us e of pillows and heel boots if needed.? Apply Preventative foams where needed. ? 3. Monitor for incontinence and moisture control, use barrier creams when needed for prevention and treatment. 4. Provide adequate and supplemental nut rition.? 5. Order Bariatric Bed. 6. When applicable maintain blood glucos e levels per Providers order. Posterior Thighs, Buttock and Intergluteal - Cleanse with Ph Balanced wipes or Allie [place]. Pat dry. Apply Antifungal powder or cream per provider orders followed by triad barrier cream. apply twice daily. Bilateral Lower Legs - Elevate lower legs - Cleanse with NS, pat dry. Apply vaseline to lower legs, cover open wound beds with impregnated gauze or xeroform, followed by dry gauze, ABD pads and Elastic netting to secure in place. Change Daily. She currently has [facility] 3x/wk nursing 2x/wk for physical therapy She has limited mobility due to pain, lymphedema. She needs a wheelchair ramp to reenter her house due to considerable pain and immobility. She needs a 4 point walker without wheels to aid ambulation in home. She has an appt with the lymphedema clinic tomorrow. Needs PT-1. She has been and continues to be essentially homebound Endocrine A1c 6.1%. She has a history of thyroid cancer. Previously followed in [place]. TSH elevated on 200mcg daily levothyroxine. Reports compliance. Rsp: Chronic hypoxic respiratroy failure. She requires chronic 02-4 L at rest, qhs NC, 6L with exertion. 02 at rest today without oxygen 85%, 95% on 4L. Drops to 80% with standing off oxygen and 95% on 6L with standing and 2 steps. Feels better on traditional 02, rather than concentrator. ROS see HPI PHYSICAL EXAM: GENERAL: Alert and oriented x 3. NAD EYES: EOMI. Anicteric. SKIN: b/l lymphedema NEUROLOGIC: No focal neurological deficits. PSYCHIATRIC: Cooperative. Appropriate mood and affect [facility] Medical History (Updated 08/05/24 @ 13:13 by Janessa Tian MD) Chronic hypoxic respiratory failure Hypothyroidism Lymphedema Type 2 diabetes mellitus CVA (cerebral vascular accident) Myocardial ischemia CHARITO on CPAP Thyroid cancer BMI 60.0-69.9, adult Berrios's palsy GERD (gastroesophageal reflux disease) delivery delivered Right knee meniscal tear Morbid obesity POTS (postural orthostatic tachycardia syndrome) Surgical History S/P cholecystectomy H/O total thyroidectomy S/P right knee arthroscopy Family History Father No problems noted. Mother Heart disease History of hypothyroidism Sister No problems noted. Brother No problems noted. Son No problems noted. Son No problems noted. Son No problems noted. Social History Household Members: Spouse Housing: House Do you presently have visiting nurse or other home services: Yes (VNA's and [employer].) Alcohol intake: never Patient Tobacco Use Status: Former Tobacco user e-Cigarette/Vaping Use: Never Used Second Hand Smoke Exposure: No Use of substances other than those prescribed or required for medical reasons: Yes Substance Use Type: Marijuana service: No Current occupational status: disabled Cognitive needs: No Hearing needs: No Vision needs: No Questionnaire Thrive Questionnaire Date Thrive assessed: 07/08/24 AUDIT C Alcohol Use Questionnaire (AUDIT-C) 1. How often do you have a drink containing alcohol?: Never 3. How often do you have six or more drinks on one occasion?: Never Total Score: 0 Physical exam (Primary Care) Tobacco/Smoking Status: Tobacco use Status Tobacco use date assessed 07/28/24 07/28/24 16:24 Patient Tobacco Use Status Former Tobacco user 07/28/24 16:21 e-Cigarette/Vaping Use Never Used 07/28/24 16:21 Thrive Assessment: Date of Thrive Assessment Date Thrive assessed 07/08/24 07/28/24 16:16 Telehealth Telehealth Telehealth Platform: Telephone Location of provider rendering services: practice address Location of patient: address on file Patient Identification confirmed using: Name, : Yes Telehealth method: voice only Patient verbally consented to treatment: Yes Patient verbally consented to billing insurance company: Yes Patient informed of any privacy concerns related to visit: Yes Minutes spent on Phone/Video with Pt.: 45 Coding Level of Care Code Tele Est Pt Level 4 (47010) Diagnoses Hospital discharge follow-up Z09 Recurrent cellulitis of lower extremity L03.119 Lymphedema I89.0 BMI 60.0-69.9, adult Z68.44 Wound of lower extremity, unspecified laterality, subsequent encounter S81.809D Encounter type: subsequent encounter Laterality: unspecified laterality Assessment & Plan Assessment & Plan (1) Hospital discharge follow-up: Code(s): Z09 - Encounter for follow-up examination after completed treatment for c onditions other than malignant neoplasm Category: Medical (2) Recurrent cellulitis of lower extremity: Code(s): L03.119 - Cellulitis of unspecified part of limb Category: Medical (3) Lymphedema: Code(s): I89.0 - Lymphedema, not elsewhere classified Category: Medical (4) BMI 60.0-69.9, adult: Comment: continued efforts at weight loss. Code(s): Z68.44 - Body mass index [BMI] 60.0-69.9, adult Category: Medical (5) Wound of lower extremity: Code(s): S81.809A - Unspecified open wound, unspecified lower leg, initial encounter Category: Medical Qualifiers: Encounter type: subsequent encounter Laterality: unspecified laterality Qualified Code(s): S81.809D - Unspecified open wound, unspecified lower leg, subsequent encounter Plan Hospital discharge follow up Hospitalization reviewed. Recommendations for DME as above. Has been resent multiple times to DME pharmacy Pregabalin refilled Continue current medications Medications: New pregabalin 100 mg PO BID 60 caps 3RF
== END 2024-07-28 17:05 | disposition home or self-care (01) ==
LOC: HO.HMCFM 16:13
PROVIDERS: PCP Internal Medicine; Visit Provider Internal Medicine
DX: L03.119 Cellulitis of unspecified part of limb (principal); Z09 Encounter for follow-up examination after completed treatment for conditions other than malignant neoplasm; Z68.44 Body mass index [BMI] 60.0-69.9, adult; I89.0 Lymphedema, not elsewhere classified; S81.809D Unspecified open wound, unspecified lower leg, subsequent encounter

== ENCOUNTER 2024-10-06 11:36 | Outpatient (REF) | payer OTHER, SELFPAY ==
--- OUTSIDE RECORDS SUMMARY | 2024-09-22 09:00 | XMS_ITS ---
Author Organization [facility] Address [address] [facility] [address] [place] [address] Care Team Providers Care Recruiting Manager Name Role Phone Clayton ONEIL, Janessa Primary Care Provider Unavailab Jean Paul Deluca Unavailable [phone] Encounters Encounter Location Date Provider Diagnosis [facility] [address] [facility] [address] [place] [address] 09/22/2024 Jean Paul Darnell Plan Of Treatment No Information Progress Notes * Stephanie BUIOB:1970 (54 yo F)Acc No.[id number]:09/22/2024 Follow-Up Visit Patient: Manuel HICKMANKristen TALLEY Provider: Ana Darnell NP :1970 A ge:54 Y S ex:Female Date:09/22/2024 Address:[address] [place], [place] [id number] Pcp:Janessa Arnold MD Subjective: * Chief Complaints: * * Medical History: Objective: * Vitals: Assessment: Plan: * Treatment: * Billing Information: * Visit Code: * Procedure Codes: * Electronic signature of Ravinder Darnell NP on 10/06/2024 at 12:40 PM EDT Sign off status: Pending * Provider: Ana Darnell NP Date: 09/22/2024 Generated for Ceci cuevas/Elian/eTransmitting on: 10/06/2024 12:40 PM EDT
[2024-10-06 11:39] LABS: MANUAL DIFF FLAG NO
[2024-10-06 11:49] LABS: Hematocrit 35.5 % (37.0-47.0); Hemoglobin 10.6 g/dl (12.0-16.0); Imm Gran Abs Auto 0.04 X10*3/uL (0.00-0.03); Imm Gran Pct Auto 0.5 % (0.0-0.4); Lymphocytes Absolute Auto 1.3 X10*3/uL (1.2-4.9); Mean Corpuscular HGB Conc 29.9 g/dl (31.0-35.0); Mean Corpuscular Hemoglobin 28.1 pg (27.0-33.0); Mean Corpuscular Volume 94.2 fL (80.0-98.0); NRBC Abs Auto 0.000 X10*3/uL (0.0-0.012); NRBC Pct Auto 0.0 /100WBC (0.0-0.2); Platelet Count 330 X10*3/uL (160-400); Red Blood Count 3.77 X10*6/uL (4.20-5.50); White Blood Count 8.0 X10*3/uL (4.8-10.8)
[2024-10-06 12:03] LABS: Hemoglobin A1C 123.2766 umol/L; Total Hemoglobin (HGBA1C) 2779.7031 umol/L
[2024-10-06 12:32] LABS: Alanine Aminotransferase 24 U/L (0-31); Albumin Level 3.7 g/dL (3.5-5.0); Alkaline Phosphatase 73 U/L (39-117); Anion Gap 12 (12-20); Aspartate Amino Transferase 27 U/L (5-31); Blood Urea Nitrogen 14 mg/dL (9-16); Calcium 8.4 mg/dL (8.4-10.2); Carbon Dioxide 37 mmol/L (22-29); Chloride 99 mmol/L (96-108); Estimated Glomerular Filt Rate > 60; Iron 29 mcg/dL (30-160); Percent Iron Saturation 10 % (15-50); Potassium 4.0 mmol/L (3.3-5.1); Sodium 144 mmol/L (135-145); Total Iron Binding Capacity 288 mcg/dL (228-428); Total Protein 6.8 g/dL (6.5-8.0); Unsaturated Iron Binding 259 ug/dL
[2024-10-06 12:38] LABS: Free T4 (Free Thyroxine) 1.14 ng/dL (0.71-1.85); Thyroid Stimulating Hormone 10.71 uIU/mL (0.32-4.0)
--- OUTSIDE RECORDS SUMMARY | 2024-10-06 12:41 | XMS_ITS | Clinical Summary ---
Author Organization [facility] Address [address] [place] [address] Phone Care Team Providers Care Supervisor Assembly Name Role Phone Janessa Tian MD Primary Care Provider [phone] Surgical History Surgery Date Site/Laterality Comments KNEE SURGERY 05/2003 Right PROCEDURE: HISTORICAL KNEE SURGERY THYROIDECTOMY 06/2010 PROCEDURE: HISTORICAL TOTAL THYROIDECTOMY; COMMENT: papillary cancer TUBAL LIGATION 12/2007 PROCEDURE: HISTORICAL TUBAL LIGATION; COMMENT: with c/s OTHER SURGICAL HISTORY 06/2012 PROCEDURE: [place] BX/EXC LYMPH NODE OPEN DEEP CERVICAL NODE; [...] c tachycardia syndrome); COMMENT: ativan Seizure disorder (CMS/HCC V2 4, CMS/HCC V28) DX:Seizure disorder (HCC) Post-traumatic stress syndrome D X:Post-traumatic stress syndrome Anxiety DX:Anxiety; COMM ENT: no meds Tobacco use disorder 05/20/2009 DX:Tobacco use disorder Hepatic steatosis DX:Hepatic terese atosis Morbid obesity with BMI of 5 0.0-59.9, adult (CMS/HCC V24, CMS/HCC V28) 04/18/2012 DX:Morbid obesity wit h BMI of 50.0-59.9, adult (HCC) Asthma 07/22/2015 DX:Asthma Chronic [...] conjunctivitis COPD (chronic obstructive pu lmonary disease) ([facility]24, [facility] V28) 06/21/2016 DX:COPD (chronic o bstructive pulmonary disease) ([facility]) Depression 12/26/2016 DX:Depression Dysphagia 10/09/2016 DX:Dysphagia Gastroesophageal reflux disease 12/26/2016 DX:Gastroesophageal reflux disease 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; 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 PVD (peripheral vascular dis ease) ([facility] V24) 10/19/2020 DX:PVD (peripheral vascular disease) ([facility]); COMMENT: bilateral Family History Medical [...] 5 Years) and At-Risk Patients (6 to 49 Years) (2 of 2 - PCV) 12/01/2016 [...] Vaccine ( season) 2023 Influenza Vaccine (#1) 2024 8, 01/05/2016, 11/30/2014, Additional history exists HIB [...] patient's age to complete this topic Insurance [facility] Care Teams Supervisor Assembly Relationship Specialty Start Date End Date Janessa Tian MD [address] [place] [id number] PCP - General Internal Medicine 07/01/24
--- OUTSIDE RECORDS SUMMARY | 2024-10-06 12:41 | XMS_ITS | Encounter Summary ---
Author Organization [facility] Address [address] [place] [address] Care Team Providers Care Office Auditor Name Role Phone Mark Alfonso MD Primary Care Provider Unavail able Janessa Langley MD Primary Care Provider Unavaila Mark Valera MD Primary Care Provider Unavail able Janessa Langley MD Primary Care Provider Unavaila Mark Mayo MD Primary Care Provider Unav ailable Janessa Langley MD Primary Care Provider Unavaila Layla Juarez MD Primary Care Provider [phone] Amparo Pressley MD Primary Care Provider Un available Isela Roe MD Unavailable [phone] Layla Segal MD Primary Care Provider [phone] [facility], Pcp Primary Care Provider Unavailabl e Encounter Details Date Type Department Care Team Description 06/13/2015 Pt. Non Urgent Medic al Question Physiatry - [place] [address] [place] [id number] Christopher Wong DO Social History Tobacco Use [...] filedocumented in this encounter Care Teams Office Auditor Relationship Specialty Start Date End Date Mark [...] Medicine 04/14/20 08/08/20 Layla Segal MD [address] [place] [id number] PCP - General Internal Medicine 08/09/20 10/19/20 Amparo Pressley MD [address] [place] [phone] PCP - General Internal Medicine 10/20/20 12/12/20 Layla Segal MD [address] [place] [phone] PCP - General Internal Medicine 12/13/20 01/07/22 [facility], Pcp [address] [phone] PCP - General Internal Medicine 01/08/22 Isela Roe MD [address] [phone] Specialist Cardiology 10/28/20 documented as of this encounter
== END 2024-10-06 11:37 | disposition home or self-care (01) ==
LOC: HO.HVNA 11:36
PROVIDERS: Visit Provider Internal Medicine
DX: E11.69 Type 2 diabetes mellitus with other specified complication (principal); E03.9 Hypothyroidism, unspecified; Z13.0 Encounter for screening for diseases of the blood and blood-forming organs and certain disorders involving the immune mechanism
CPT/HCPCS: 36415; 80053; 83036; 83540; 84439; 84443; 85025

== ENCOUNTER 2024-10-09 13:59 | Outpatient (REF) | payer OTHER, SELFPAY ==
--- OUTSIDE RECORDS SUMMARY | 2024-09-22 09:00 | XMS_ITS ---
Author Organization [facility] Address [address] [facility] [address] [place] [address] Care Team Providers Care Supervisor [place] Name Role Phone Clayton ONEIL, Janessa Primary Care Provider Unavailab Jean Paul Deluca Unavailable [phone] Encounters Encounter Location Date Provider Diagnosis [facility] [address] [facility] [address] [place] [address] 09/22/2024 Jean Paul Darnell Plan Of Treatment No Information Progress Notes * Stephanie BUIOB:1970 (54 yo F)Acc No.[id number]:09/22/2024 Follow-Up Visit Patient: Manuel HICKMANKristen TALLEY Provider: Ana Darnell NP :1970 A ge:54 Y S ex:Female Date:09/22/2024 Address:[address] [place], [place] [id number] Pcp:Janessa Arnold MD Subjective: * Chief Complaints: * * Medical History: Objective: * Vitals: Assessment: Plan: * Treatment: * Billing Information: * Visit Code: * Procedure Codes: * Electronic signature of Ravinder Darnell NP on 10/09/2024 at 02:04 PM EDT Sign off status: Pending * Provider: Ana Darnell NP Date: 09/22/2024 Generated for Ceci cuevas/Elian/eTransmitting on: 10/09/2024 02:04 PM EDT
--- OUTSIDE RECORDS SUMMARY | 2024-10-09 14:05 | XMS_ITS | Clinical Summary ---
Author Organization [facility] Address [address] [place] [address] Phone Care Team Providers Care Pot Pusher Name Role Phone Janessa Tian MD Primary Care Provider [phone] Surgical History Surgery Date Site/Laterality Comments KNEE SURGERY 05/2003 Right PROCEDURE: HISTORICAL KNEE SURGERY THYROIDECTOMY 06/2010 PROCEDURE: HISTORICAL TOTAL THYROIDECTOMY; COMMENT: papillary cancer TUBAL LIGATION 12/2007 PROCEDURE: HISTORICAL TUBAL LIGATION; COMMENT: with c/s OTHER SURGICAL HISTORY 06/2012 PROCEDURE: [place] BX/EXC LYMPH NODE OPEN DEEP CERVICAL NODE; [...] conjunctivitis COPD (chronic obstructive pu lmonary disease) ([facility] V24, [facility] V28) 06/21/2016 DX:COPD (chronic o bstructive pulmonary disease) ([facility]) Depression 12/26/2016 DX:Depression Dysphagia 10/09/2016 DX:Dysphagia Gastroesophageal reflux disease 12/26/2016 DX:Gastroesophageal reflux disease 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
[2024-10-09 14:50] LABS: Microalbum/Creatinine Ratio Ur 9.4 ug/mg cr (<30)
[2024-10-09 15:24] LABS: Folate 9.3 ng/mL (> or = 4.0); Vitamin B12 1979 pg/mL (200-900)
== END 2024-10-09 14:00 | disposition home or self-care (01) ==
LOC: HO.HVNA 13:59
PROVIDERS: Visit Provider Internal Medicine
DX: E11.9 Type 2 diabetes mellitus without complications (principal); E03.9 Hypothyroidism, unspecified; Z13.0 Encounter for screening for diseases of the blood and blood-forming organs and certain disorders involving the immune mechanism; D64.9 Anemia, unspecified
CPT/HCPCS: 36415; 82043; 82570; 82607; 82746; 84432; 86800

== ENCOUNTER 2024-11-06 13:57 | Outpatient (AMB) | payer OTHER, SELFPAY ==
--- OUTSIDE RECORDS SUMMARY | 2024-09-22 09:00 | XMS_ITS ---
Author Organization [facility] Address [address] [facility] [address] [place] [address] Care Team Providers Care Dairy Nutrition Consultant Name Role Phone Clayton ONEIL, Janessa Primary Care Provider Unavailab Jean Paul Deluca Unavailable [phone] Encounters Encounter Location Date Provider Diagnosis [facility] [address] [facility] [address] [place] [address] 09/22/2024 Jean Paul Darnell Plan Of Treatment Next Appt Details Provider Name:Jean Paul briggs, 11/10/2024 03:00:00 PM, [address] [facility] [address], [place], [address], Progress Notes * Stephanie BUIOB:1970 (54 yo F)Acc No.[id number]:09/22/2024 Follow-Up Visit Patient: Kristen RODRIGUEZ Provider: Ana Darnell NP :1970 A ge:54 Y S ex:Female Date:09/22/2024 Address:[address] [place], [place] [id number] Pcp:Janessa Arnold MD Subjective: * Chief Complaints: * * Medical History: Objective: * Vitals: Assessment: Plan: * Treatment: * Billing Information: * Visit Code: * Procedure Codes: * Electronic signature of Ravinder Darnell NP on 11/06/2024 at 01:59 PM EDT Sign off status: Pending * Provider: Ana Darnell NP Date: 09/22/2024 Generated for Printi ng/Fanedag/eTransmitting on: 11/06/2024 01:59 PM EDT
--- NOTE | 2024-11-06 13:53 | A.OFFPC_ITS ---
Intake Visit Reasons: review/labs Intake Note: Follow up. Has only been taking levothyroxine 225 mcg not 300 mcg. Tariff Supervisor Required: No Allergies tirzepatide (From Mounjaro) Allergy (Severe, Verified 11/06/24 13:54) Unknown soy Allergy (Mild, Verified 11/06/24 13:54) hives amoxicillin Allergy (Unknown, Verified 11/06/24 13:54) anaphylaxis azithromycin (Zithromax Z-Chris) Allergy (Unknown, Verified 11/06/24 13:54) anaphylaxis Darvocet A500 Allergy (Unknown, Verified 11/06/24 13:54) hives penicillin V Allergy (Unknown, Verified 11/06/24 13:54) anaphylaxis Erythromycin Allergy (Unknown, Uncoded 11/06/24 13:54) anaphylaxis Rabbits Allergy (Unknown, Uncoded 11/06/24 13:54) anaphylaxis Honduran cheese Allergy (Unknown, Uncoded 11/06/24 13:54) anaphylaxis Tobacco use date assessed: 11/06/24 HPI HPI Comments History of Present Illness Details This is a 54 y/o female with a past medical history of type 2 DM, CVA, RI, CHF, thyroid cancer, hypothyroid, OA, obesity, CHARITO, hypoxic respiratory failure on chronic 02, lymphedema, recurrent LE cellulitis, depression, anxiety presenting for follow up (video telehealth) She currently has [facility] 3x/wk nursing 2x/wk for physical therapy She has limited mobility due to pain, lymphedema. She has been and continues to be essentially homebound. She is awaiting seat cushion to avoid decub and a rack for her oxygen tank Endocrine A1c reviewed. continues to be at goal. She has a history of thyroid cancer. Pr eviously followed in ubly. TSH elevated on 250mcg daily levothyroxine. Reports compliance. Increased last week to 300mcg daily Rsp: Chronic hypoxic respiratroy failure. She requires chronic 02-4 L at rest, qhs NC, 6L with exertion. 02 at rest today without oxygen 85%, 95% on 4L. Drops to 80% with standing off oxygen and 95% on 6L with standing and 2 steps. Feels better on traditional 02, rather than concentrator. MSK: Reports right hip pain ROS see HPI PHYSICAL EXAM: GENERAL: Alert and oriented x 3. NAD EYES: EOMI. Anicteric. SKIN: b/l lymphedema NEUROLOGIC: No focal neurological deficits. PSYCHIATRIC: Cooperative. Appropriate mood and affect [facility] Medical History Chronic hypoxic respiratory failure Hypothyroidism Lymphedema Type 2 diabetes mellitus CVA (cerebral vascular accident) Myocardial ischemia CHARITO on CPAP Thyroid cancer BMI 60.0-69.9, adult Berrios's palsy GERD (gastroesophageal reflux disease) delivery delivered Right knee meniscal tear Morbid obesity POTS (postural orthostatic tachycardia syndrome) Surgical History S/P cholecystectomy H/O total thyroidectomy S/P right knee arthroscopy Family History Father No problems noted. Mother Heart disease History of hypothyroidism Sister No problems noted. Brother No problems noted. Son No problems noted. Son No problems noted. Son No problems noted. Social History Household Members: Spouse Housing: House Do you presently have visiting nurse or other home services: Yes (VNA's and [employer].) Alcohol intake: never Patient Tobacco Use Status: Former Tobacco user e-Cigarette/Vaping Use: Never Used Second Hand Smoke Exposure: No Substance Use Type: Marijuana service: No Current occupational status: disabled Cognitive needs: No Hearing needs: No Vision needs: No Questionnaire Thrive Questionnaire Date Thrive assessed: 07/08/24 Physical exam (Primary Care) Tobacco/Smoking Status: Tobacco use Status Tobacco use date assessed 11/06/24 11/06/24 13:56 Patient Tobacco Use Status Former Tobacco user 11/06/24 13:56 e-Cigarette/Vaping Use Never Used 11/06/24 13:56 Thrive Assessment: Date of Thrive Assessment Date Thrive assessed 07/08/24 11/06/24 13:56 Telehealth Telehealth Telehealth Platform: Telephone Location of provider rendering services: practice address Location of patient: address on file Patient Identification confirmed using: Name, : Yes Telehealth method: voice only Patient verbally consented to treatment: Yes Patient verbally consented to billing insurance company: Yes Patient informed of any privacy concerns related to visit: Yes Minutes spent on Phone/Video with Pt.: 35 Coding Level of Care Code Tele Est Pt Level 4 (48380) Diagnoses Type 2 diabetes mellitus with other specified complication, unspecified whether terminal computer operator insulin use E11.69 Diabetes mellitus complication status: with other specified complication Diabetes mellitus terminal computer operator insulin use: unspecified terminal computer operator insulin use status Hypothyroidism, unspecified type E03.9 Hypothyroidism type: unspecified Morbid (severe) obesity due to excess calories E66.01 Assessment & Plan Assessment & Plan (1) Type 2 diabetes mellitus: Code(s): E11.9 - Type 2 diabetes mellitus without complications Category: Medical Qualifiers: Diabetes mellitus complication status: with other specified complication Diabetes mellitus group home insulin use: unspecified terminal computer operator insulin use status Qualified Code(s): E11.69 - Type 2 diabetes mellitus with other specified complication (2) Hypothyroidism: Comment: Postsurgical Code(s): E03.9 - Hypothyroidism, unspecified Category: Medical Qualifiers: Hypothyroidism type: unspecified Qualified Code(s): E03.9 - Hypothyroidism, unspecified (3) Morbid (severe) obesity due to excess calories: Code(s): E66.01 - Morbid (severe) obesity due to excess calories Category: Medical Plan 54 year old female for follow up increase pain bilateral thighs-duplex ordered right hip pain.-declines ortho. trial prednisone, lidocaine. AGNES-unable to undergo colonoscopy at present. colgouard was negative. start iron 3x/week Orders: Orders Estradiol Ultra Sensitive 11/06/24 M25.552 - Pain in left hip, Z78.0 - Asymptomatic menopausal state Erythrocyte Sedimentation Rate 11/06/24 M25.552 - Pain in left hip, Z78.0 - Asymptomatic menopausal state Lutenizing Hormone 11/06/24 M25.552 - Pain in left hip, Z78.0 - Asymptomatic me nopausal state Cortisol Random 11/06/24 M25.552 - Pain in left hip, Z78.0 - Asymptomatic menopausal state US venous duplex LE BI 11/06/24 M79.651 - Pain in right thigh, M79.652 - Pain in left thigh Medications: New ferrous sulfate 324 mg PO .MWF 270 tabs 3RF prednisone 40 mg (2 x 20 mg) PO DAILY 10 tabs 0RF lidocaine 5% 1 appl topical DAILY PRN 100 grams 3RF pain multivitamin 1 tab PO DAILY 90 tabs 3RF Changed From cyanocobalamin (vitamin B-12) 1,000 mcg IM Q4W 3 months 4 mL 1RF To cyanocobalamin (vitamin B-12) 1,000 mcg IM Q12W 10 mL 1RF From trazodone 150 mg PO BEDTIME PRN 30 tabs 11RF sleep To trazodone PATIENT NEEDS SMALLEST TAB POSSIBLE 150 mg PO BEDTIME PRN 90 tabs 3RF sleep Refilled lorazepam 2 mg (2 x 1 mg) PO BEDTIME PRN 90 tabs 1RF anxiety oxycodone 5 mg PO Q6H PRN 112 tabs 0RF pain 28 days I89.0 - Lymphedema, not elsewhere classified, L03.119 - Cellulitis of unspecified part of limb
--- OUTSIDE RECORDS SUMMARY | 2024-11-06 14:00 | XMS_ITS | Clinical Summary ---
Author Organization [facility] Address [address] [place] [address] Phone Care Team Providers Care Assembler Liquid Center Name Role Phone Janessa Tian MD Primary Care Provider [phone] Surgical History Surgery Date Site/Laterality Comments KNEE SURGERY 05/2003 Right PROCEDURE: HISTORICAL KNEE SURGERY THYROIDECTOMY 06/2010 PROCEDURE: HISTORICAL TOTAL THYROIDECTOMY; COMMENT: papillary cancer TUBAL LIGATION 12/2007 PROCEDURE: HISTORICAL TUBAL LIGATION; COMMENT: with c/s OTHER SURGICAL HISTORY 06/2012 PROCEDURE: [place] BX/EXC LYMPH NODE OPEN DEEP CERVICAL NODE; [...] conjunctivitis COPD (chronic obstructive pu lmonary disease) ([facility] V24, [facility] V28) 06/21/2016 DX:COPD (chronic o bstructive pulmonary disease) ([facility]) Depression 12/26/2016 DX:Depression Dysphagia 10/09/2016 DX:Dysphagia Gastroesophageal reflux disease 12/26/2016 DX:Gastroesophageal reflux disease 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; 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 PVD (peripheral vascular dis ease) ([facility] V24) 10/19/2020 DX:PVD (peripheral vascular disease) ([facility]); COMMENT: bilateral Family History Medical History Relation [...] Panel) 03/06/2022 Colorectal Cancer Screening: Colonoscopy 03/06/2022 HIV Screening 03/06/2022 Hepatitis C Screening 03/06/2022 Social Influencers of Health Screening 03/06/2022 Diabetes: Annual Urine Albumin-Creatinine Ratio (uACR) 03/08/2022 Diabetes: Blood Sugar Control Test (HGBA1C) 03/08/2022 COVID-19 Vaccine ( season) 2023 Depression Screening 04/01/2024 Influenza Vaccine (#1) 2024 8, 01/05/2016, 11/30/2014, [...] patient's age to complete this topic Insurance [facility] Care Teams Assembler Liquid Center Relationship Specialty Start Date End Date Janessa Tian MD [address] [place] [phone] PCP - General Internal Medicine 07/01/24
--- OUTSIDE RECORDS SUMMARY | 2024-11-06 14:00 | XMS_ITS ---
Author Name [facility] Organization Unknown Care Team Organization Name Specialty Phone Email Start Date End Da te [facility] Layla Segal Primary Care 02/06/2022 4
== END 2024-11-06 15:17 | disposition home or self-care (01) ==
LOC: HO.HMCFM 13:57
PROVIDERS: PCP Internal Medicine; Visit Provider Internal Medicine
DX: E11.69 Type 2 diabetes mellitus with other specified complication (principal); E03.9 Hypothyroidism, unspecified; E66.01 Morbid (severe) obesity due to excess calories